=== PATIENT | female | born 1970 | race Hispanic/Latino ===

== ENCOUNTER 2021-04-12 19:10 | Inpatient (IN) | payer MEDICARE ==
--- NOTE | 2021-04-12 19:43 | Emergency Department Report ---
ED Shortness of Breath HPI - General Chief Complaint: Dyspnea/Respdistress Stated Complaint: HIGH BLOOD SUGAR, TAMMY Time Seen by Provider: 04/12/21 19:38 Source: EMS Mode of arrival: Stretcher Limitations: No Limitations - History of Present Illness Initial Comments: Patient is a 52-year-old female who presents emergency room with complaints of shortness of breath and elevated blood sugar. Patient states her shortness of breath started 4 days ago. Patient states her shortness of breath is worsening. Patient states her blood sugar fluctuates over time. Patient states she is compliant with her diabetes medications. Patient states that blood sugar is making her tired. Patient denies chest pain. Patient denies pain. Patient denies nausea vomiting. Patient denies recent travel. Patient denies recent international travel. Patient denies exposure to the novel coronavirus. Patient denies sick contacts. Patient denies fever and chills. Patient denies cough. Patient denies diarrhea. Patient denies coming in contact with anybody with symptoms of the novel coronavirus. Patient brought in by EMS, received from EMS. EMS states the oxygen is 90%. Patient's oxygen was 99% on a nonrebreather. MD Complaint: shortness of breath -: Sudden Severity: severe Consistency: constant Improves With: rest, upright position Worsens With: lying flat, exertion Known History Of: COPD Treatments Prior to Arrival: oxygen - Related Data Home Oxygen Therapy: No Allergies Allergy/AdvReac Type Severity Reaction Status Date / Time ciprofloxacin [From Cipro] Allergy Unknown Verified 04/12/21 20:24 Penicillins Allergy Unknown Verified 04/12/21 20:24 ED Review of Systems ROS: Stated complaint: HIGH BLOOD SUGAR, TAMMY Other details as noted in HPI Constitutional: malaise. denies: chills, fever Eyes: denies: eye pain, eye discharge, vision change ENT: denies: ear pain, throat pain Respiratory: shortness of breath, SOB with exertion, SOB at rest. denies: cough, wheezing Cardiovascular: denies: chest pain, palpitations Endocrine: no symptoms reported Gastrointestinal: denies: abdominal pain, nausea, diarrhea Genitourinary: denies: urgency, dysuria, discharge Musculoskeletal: denies: back pain, joint swelling, arthralgia Skin: denies: rash, lesions Neurological: denies: headache, weakness, paresthesias Psychiatric: denies: anxiety, depression Hematological/Lymphatic: denies: easy bleeding, easy bruising ED Past Medical Hx - Past Medical History Previous Medical History?: Yes Hx Hypertension: Yes Hx CVA: No Hx Heart Attack/AMI: No Hx Congestive Heart Failure: No Hx Diabetes: Yes Hx Renal Disease: No Hx COPD: Yes - Surgical History Past Surgical History?: No - Family History Family history: no significant - Social History Smoking Status: Current Every Day Smoker Substance Use Type: None ED Physical Exam - General Limitations: No Limitations General appearance: in no apparent distress, lethargic - Head Head exam: Present: atraumatic, normocephalic - Eye Eye exam: Present: normal appearance - ENT ENT exam: Present: mucous membranes moist - Neck Neck exam: Present: normal inspection - Respiratory Respiratory exam: Present: normal lung sounds bilaterally. Absent: respiratory distress, wheezes, rales, chest wall tenderness - Cardiovascular Cardiovascular Exam: Present: regular rate, normal rhythm. Absent: systolic murmur, diastolic murmur, rubs, gallop - GI/Abdominal GI/Abdominal exam: Present: soft, normal bowel sounds - Extremities Exam Extremities exam: Present: normal inspection - Back Exam Back exam: Present: normal inspection - Neurological Exam Neurological exam: Present: oriented X3 - Psychiatric Psychiatric exam: Present: normal affect, normal mood - Skin Skin exam: Present: warm, dry, intact, normal color. Absent: rash ED Course Vital Signs 04/12/21 04/12/21 04/12/21 19:41 19:42 19:45 Temperature 99.7 F H Pulse Rate Respiratory Rate Blood Pressure 123/48 Blood Pressure 123/48 [Left] O2 Sat by Pulse 87 94 97 Oximetry 04/12/21 04/12/21 04/12/21 20:29 20:33 21:19 Temperature Pulse Rate 56 L Respiratory Rate Blood Pressure 138/111 138/111 Blood Pressure [Left] O2 Sat by Pulse Oximetry 04/12/21 04/12/21 04/12/21 21:31 21:45 22:01 Temperature Pulse Rate 100 H 93 H Respiratory 30 H 38 H Rate Blood Pressure 123/48 101/56 Blood Pressure [Left] O2 Sat by Pulse 95 96 96 Oximetry 04/12/21 04/12/21 22:15 22:31 Temperature Pulse Rate 68 Respiratory 21 Rate Blood Pressure 101/56 118/57 Blood Pressure [Left] O2 Sat by Pulse 98 95 Oximetry - Reevaluation(s) Reevaluation #1: Patient placed on a DKA protocol to include insulin, fluids. Patient agrees with plan of care. Patient is less lethargic. 04/12/21 21:19 Reevaluation #2: I discussed all results with patient. I discussed plan of care with patient. Patient agrees with plan of care and admission. Patient to be admitted to the hospitalist service. 04/12/21 21:37 - Consultations Consultation #1: Hospitalist consulted for admission. Hospitalist to admit patient. 04/12/21 21:37 ED Medical Decision Making - Lab Data Result diagrams: 04/12/21 20:25 04/12/21 23:18 - EKG Data -: EKG Interpreted by Me EKG shows normal: sinus rhythm, ST-T waves Rate: normal - EKG Data Interpretation: LVH, other (Bigeminy, PVCs, axis deviation) - Radiology Data Radiology results: report reviewed, image reviewed interpreted by me: Chest x-ray: No pneumonia, no pneumothorax, no foreign body, no osseous findings, no acute findings CHEST 1 VIEW INDICATION: Dyspnea. COMPARISON: None FINDINGS: SUPPORT DEVICES: None. HEART: Within normal limits. LUNGS/PLEURA: Suboptimal inspiratory effort with central vascular crowding but otherwise clear lungs. ADDITIONAL FINDINGS: None. IMPRESSION: 1. No acute findings. - Medical Decision Making Patient is a 51-year-old female who presents emergency room with elevated blood sugar and shortness of breath. Patient will be hypoxic. Patient's oxygenation improved with fluids and oxygen. Patient required oxygen entire time in ER. Patient chest x-ray is negative for acute findings. Patient had labs done. Patient's labs shows metabolic acidosis and DKA and dehydration and renal i nsufficiency, lactic acidosis. Patient given fluids in the ER and prior to arrival by EMS. Patient placed on a DKA protocol to include fluids and a insulin drip. Patient admitted to the hospitalist service for further evaluation treatment into the ICU. Critical care time documented due to the multiple reassessments, prolonged time at the bedside, interpretation of diagnostics and labs. - Differential Diagnosis DKA, shortness of breath, hypoxia, pneumonia, hyperglycemia, encephalopathy Critical Care Time: Yes Critical care time in (mins) excluding proc time.: 35 Critical care attestation.: If time is entered above; I have spent that time in minutes in the direct care of this critically ill patient, excluding procedure time. Critical Care Time: 35 minutes ED Disposition Clinical Impression: Lethargy, Acute metabolic encephalopathy, SOB (shortness of breath), Renal insufficiency DKA (diabetic ketoacidoses) Qualifiers: Diabetes mellitus type: type 2 Diabetes mellitus complication detail: with coma Qualified Code(s): E11.11 - Type 2 diabetes mellitus with ketoacidosis with coma Respiratory failure Qualifiers: Chronicity: acute Respiratory failure complication: hypoxia Qualified Code(s): J96.01 - Acute respiratory failure with hypoxia Disposition: 09 OP ADMIT IP TO THIS HOSP Is pt being admited?: Yes Does the pt Need Aspirin: No Condition: Critical Time of Disposition: 21:36
[2021-04-12 20:33] LABS: Basophils # (Auto) 0.1 K/mm3 (0.0-0.1); Eosinophils % (Auto) 0.2 % (0.0-4.3); Monocytes # (Auto) 0.5 K/mm3 (0.0-0.8); Monocytes % (Auto) 3.8 % (0.0-7.3)
[2021-04-12 20:44] LABS: INR 1.09 (0.87-1.13); Partial Thromboplastin Time 26.8 Sec. (24.2-36.6)
[2021-04-12 20:57] LABS: Creatine Kinase MB 2.5 ng/mL (0.0-4.0)
[2021-04-12 20:59] LABS: Albumin 3.3 g/dL (3.9-5)
[2021-04-12 21:06] LABS: Hemoglobin 17.1 gm/dl (10.1-14.3); Red Blood Count 5.58 M/mm3 (3.65-5.03)
[2021-04-12 21:07] LABS: Basophils % (Auto) 0.7 % (0.0-1.8); Hematocrit 56.4 % (30.3-42.9); Lymphocytes # (Auto) 1.2 K/mm3 (1.2-5.4); Lymphocytes % (Auto) 7.9 % (13.4-35.0); Mean Corpuscular HGB Conc 30 % (30-34); Mean Corpuscular Volume 101 fl (79-97); Platelet Count 267 K/mm3 (140-440); Red Cell Distribution Width 15.3 % (13.2-15.2)
[2021-04-12] MEDS ORDERED: SODIUM CHLORIDE 0.9% 1000 ML 1,000 ML IV ONE ×2 (21:09→21:17)
[2021-04-12] MEDS ORDERED: DEXTROSE 50% IN WATER (25GM) 50 ML SYRINGE IV PRN ×3 (21:17→23:00)
--- NOTE | 2021-04-12 21:25 | XRay Report ---
CHEST 1 VIEW INDICATION: Dyspnea. COMPARISON: None FINDINGS: SUPPORT DEVICES: None. HEART: Within normal limits. LUNGS/PLEURA: Suboptimal inspiratory effort with central vascular crowding but otherwise clear lungs. ADDITIONAL FINDINGS: None. IMPRESSION: 1. No acute findings. Signer Name: Aravind Joyce MD Signed: 04/12/2021 9:20 PM Workstation Name: [id number]
[2021-04-12 21:54] LABS: Calcium 9.7 mg/dL (8.4-10.2)
[2021-04-12] MEDS ORDERED: D5W/0.45% NACL/KCL 20 MEQ 20 MEQ/1,000 ML BAG IV SCH (22:00)
[2021-04-12] MEDS ORDERED: INSULIN REGULAR, HUMAN 100 UNITS in SODIUM CHLORIDE 0.9% 99 ML IV SCH ×2 (22:00→23:00)
[2021-04-12] MEDS ORDERED: hydrALAZINE 20 MG/1 ML INJ IV PRN (22:12)
--- NOTE | 2021-04-12 22:18 | History and Physical Report ---
History of Present Illness Date of examination: 04/12/21 Date of admission: 04/12/21 21:36 Chief complaint: Shortness of breath High blood sugar History of present illness: 52-year-old female with past medical history of COPD, hypertension and diabetes was brought to the emergency room because of shortness of breath and elevated blood sugar. Patient states her shortness of breath started 4 days ago. Patient states her shortness of breath is worsening. Patient states her blood sugar fluctuates over time. Patient states she is compliant with her diabetes medications. Patient states that blood sugar is making her tired. Patient denies chest pain. Patient denies pain. Patient denies nausea vomiting. In the emergency room patient is found to have blood glucose of 10/14/2008, bicarb 15 and anion gap 22 also lactic acid 5.40 Past History Past Medical History: COPD, diabetes, hypertension Medications and Allergies Allergies Allergy/AdvReac Type Severity Reaction Status Date / Time ciprofloxacin [From Cipro] Allergy Unknown Verified 04/12/21 20:24 Penicillins Allergy Unknown Verified 04/12/21 20:24 Active Meds: Active Medications Dextrose (Dextrose 50% In Water (25gm) 50 Ml Syringe) 50 ml IV Q30MIN PRN; Protocol PRN Reason: Hypoglycemia Dextrose (Dextrose 50% In Water (25gm) 50 Ml Syringe) 0 ml IV Q30MIN PRN; Protocol PRN Reason: Hypoglycemia Heparin Sodium (Porcine) (Heparin 5,000 Unit/1 Ml Vial) 5,000 unit SUB-Q Q8HR SHANTHI Hydralazine HCl (Hydralazine 20 Mg/1 Ml Inj) 10 mg IV Q6H PRN PRN Reason: Blood Pressure Insulin Human Regular 100 (units/ Sodium Chloride) 100 mls @ 1 mls/hr IV TITR SHANTHI; Protocol Last Admin: 04/12/21 21:49 Dose: 8 units/hr, 8 mls/hr Documented by: Sodium Chloride (Nacl 0.9% 1000 Ml) 1,000 mls @ 999 mls/hr IV BOLUS ONE Stop: 04/12/21 22:17 Last Admin: 04/12/21 21:37 Dose: 999 mls/hr Documented by: Potassium Chloride/Dextrose/Sod Cl (D5w/0.45% Nacl/Kcl 20 Meq) 20 meq in 1,000 mls @ 125 mls/hr IV DIRECT SHANTHI Insulin Human Regular 100 (units/ Sodium Chloride) 100 mls @ 1 mls/hr IV TITR SHANTHI; Protocol Review of Systems Cardiovascular: shortness of breath, dyspnea on exertion Respiratory: shortness of breath, dyspnea on exertion Exam - Constitutional Vitals: Temp Pulse Resp BP Pulse Ox 99.7 F H 123/48 94 04/12/21 19:42 04/12/21 19:42 04/12/21 19:42 General appearance: Present: no acute distress, well-nourished - EENT Eyes: Present: PERRL ENT: hearing intact, clear oral mucosa - Neck Neck: Present: supple, normal ROM - Respiratory Respiratory effort: normal Respiratory: bilateral: diminished - Cardiovascular Heart Sounds: Present: S1 & S2. Absent: rub, click - Extremities Extremities: pulses symmetrical, No edema Peripheral Pulses: within normal limits - Abdominal General gastrointestinal: Present: soft, non-tender, non-distended, normal bowel sounds Female genitourinary: Present: normal - Integumentary Integumentary: Present: clear, warm, dry - Musculoskeletal Musculoskeletal: gait normal, strength equal bilaterally - Psychiatric Psychiatric: appropriate mood/affect, intact judgment & insight - Neurologic Neurologic: CNII-XII intact, moves all extremities HEART Score - HEART Score Troponin: Troponin T 0.016 ng/mL (0.00-0.029) 04/12/21 20:25 Results - Labs CBC & Chem 7: 04/12/21 20:25 04/12/21 21:24 Labs: Laboratory Last Values WBC 13.7 K/mm3 (4.5-11.0) H 04/12/21 20:25 RBC 5.58 M/mm3 (3.65-5.03) H 04/12/21 20:25 Hgb 17.1 gm/dl (10.1-14.3) H 04/12/21 20:25 Hct 56.4 % (30.3-42.9) H* 04/12/21 20:25 MCV 101 fl (79-97) H 04/12/21 20:25 MCH 31 pg (28-32) 04/12/21 20:25 MCHC 30 % (30-34) 04/12/21 20:25 RDW 15.3 % (13.2-15.2) H 04/12/21 20:25 Plt Count 267 K/mm3 (140-440) 04/12/21 20:25 Lymph % (Auto) 7.9 % (13.4-35.0) L 04/12/21 20:25 [place] % (Auto) 3.8 % (0.0-7.3) 04/12/21 20:25 Eos % (Auto) 0.2 % (0.0-4.3) 04/12/21 20:25 Baso % (Auto) 0.7 % (0.0-1.8) 04/12/21 20:25 Lymph # (Auto) 1.2 K/mm3 (1.2-5.4) 04/12/21 20:25 [place] # (Auto) 0.5 K/mm3 (0.0-0.8) 04/12/21 20:25 Eos # (Auto) 0.0 K/mm3 (0.0-0.4) 04/12/21 20:25 Baso # (Auto) 0.1 K/mm3 (0.0-0.1) 04/12/21 20:25 Seg Neutrophils % 87.4 % (40.0-70.0) H 04/12/21 20:25 Seg Neutrophils # 12.8 K/mm3 (1.8-7.7) H 04/12/21 20:25 PT 14.7 Sec. (12.2-14.9) 04/12/21 20:25 INR 1.09 (0.87-1.13) 04/12/21 20:25 APTT 26.8 Sec. (24.2-36.6) 04/12/21 20:25 VBG pH 7.283 (7.320-7.420) L 04/12/21 20:25 Sodium 127 mmol/L (137-145) L 04/12/21 21:24 Potassium 4.6 mmol/L (3.6-5.0) 04/12/21 21:24 Chloride 93.8 mmol/L (98-107) L 04/12/21 21:24 Carbon Dioxide 17 mmol/L (22-30) L 04/12/21 21:24 Anion Gap 21 mmol/L 04/12/21 21:24 BUN 11 mg/dL (7-17) 04/12/21 21:24 Creatinine 1.2 mg/dL (0.6-1.2) 04/12/21 21:24 Estimated GFR 47 ml/min 04/12/21 21:24 BUN/Creatinine Ratio 9 % 04/12/21 21:24 Glucose 954 mg/dL (65-100) H* 04/12/21 21:24 Lactic Acid 3.80 mmol/L (0.7-2.0) H* 04/12/21 21:24 Calcium 9.7 mg/dL (8.4-10.2) 04/12/21 21:24 Phosphorus 3.20 mg/dL (2.5-4.5) 04/12/21 21:24 Magnesium 2.60 mg/dL (1.7-2.3) H 04/12/21 21:24 Total Bilirubin 0.20 mg/dL (0.1-1.2) 04/12/21 20:25 AST 11 units/L (5-40) 04/12/21 20:25 ALT 12 units/L (7-56) 04/12/21 20:25 Alkaline Phosphatase 110 units/L (35-129) 04/12/21 20:25 Total Creatine Kinase 37 units/L (30-135) 04/12/21 20:25 CK-MB (CK-2) 2.5 ng/mL (0.0-4.0) 04/12/21 20:25 CK-MB (CK-2) Rel Index 6.7 (0-4) H 04/12/21 20:25 Troponin T 0.016 ng/mL (0.00-0.029) 04/12/21 20:25 Total Protein 7.4 g/dL (6.3-8.2) 04/12/21 20:25 Albumin 3.3 g/dL (3.9-5) L 04/12/21 20:25 Albumin/Globulin Ratio 0.8 % 04/12/21 20:25 - Imaging and Cardiology Chest x-ray: report reviewed Assessment and Plan VTE prophylaxis?: Chemical Plan of care discussed with patient/family: Yes - Patient Problems (1) DKA (diabetic ketoacidoses) Current Visit: Yes Status: Acute Qualifiers: Diabetes mellitus type: type 2 Diabetes mellitus complication detail: with coma Qualified Code(s): E11.11 - Type 2 diabetes mellitus with ketoacidosis with coma Plan to address problem: Admit the patient to the medical ICU. Nothing by mouth. IV fluid as per DKA protocol. Insulin drip as per DKA protocol. Protonix 40 mg IV daily. We will do the serial BMP. Recheck CBC BMP in the morning. Diabetic education. Reconsult critical care (2) Lactic acidosis Current Visit: Yes Status: Acute Plan to address problem: IV fluid normal saline at the rate of 125 cc/h. Clindamycin 600 mg IV every 8 hours. We will recheck the lactic acid in 4 hours. We do the blood culture urine culture. Recheck CBC in the morning (3) COPD (chronic obstructive pulmonary disease) Current Visit: Yes Status: Acute Plan to address problem: Oxygen by nasal cannula 3 L/min. DuoNeb via nebulizer every 4 hours. Albuterol via nebulizer every 4 hours as needed. To continue the home medication. We will monitor the patient closely (4) Hypertension Current Visit: Yes Status: Acute Plan to address problem: Hydralazine 10 mg IV every 6 hours as needed. We will continue the home medication. We will monitor the patient closely (5) Respiratory failure Current Visit: Yes Status: Acute Qualifiers: Chronicity: acute Respiratory failure complication: hypoxia Qualified C ode(s): J96.01 - Acute respiratory failure with hypoxia Plan to address problem: Oxygen by nasal cannula 3 L/min. DuoNeb via nebulizer every 4 hours. Albuterol via nebulizer every 4 hours as needed. To continue the home medication. We will monitor the patient closely (6) SOB (shortness of breath) Current Visit: Yes Status: Acute Plan to address problem: Oxygen by nasal cannula 3 L/min. DuoNeb via nebulizer every 4 hours. Albuterol via nebulizer every 4 hours as needed. To continue the home medication. We will monitor the patient closely (7) DVT prophylaxis Current Visit: Yes Status: Acute Plan to address problem: Heparin 5000 units subcu every 8 hours for DVT prophylaxis. Protonix 40 mg IV daily for GI prophylaxis. Patient is a full code
[2021-04-12] MEDS ORDERED: ALBUTEROL 2.5 MG/3 ML NEBU IH PRN (22:22)
[2021-04-12 23:49] LABS: Calcium 8.6 mg/dL (8.4-10.2)
[2021-04-13] MEDS: CLINDAMYCIN 600 MG/50 mL 600 MG/50 ML BAG IV SCH ×2 (00:32→08:44)
[2021-04-13] MEDS: POTASSIUM CHLORIDE 10 MEQ 10 MEQ/100 ML BAG IV SCH ×4 (01:15→04:05)
[2021-04-13 02:54] LABS: BUN/Creatinine Ratio 10; Blood Urea Nitrogen 9 mg/dL (7-17); Calcium 8.9 mg/dL (8.4-10.2); Hemolysis Index 11
[2021-04-13] MEDS: HEPARIN 5,000 UNIT/1 ML VIAL SUB-Q SCH ×3 (05:06→22:24)
[2021-04-13 08:20] LABS: Hematocrit 46.8 % (30.3-42.9); Hemoglobin 15.8 gm/dl (10.1-14.3); Mean Corpuscular HGB Conc 34 % (30-34); Mean Corpuscular Volume 93 fl (79-97); Platelet Count 202 K/mm3 (140-440); Red Blood Count 5.03 M/mm3 (3.65-5.03); Red Cell Distribution Width 13.5 % (13.2-15.2)
[2021-04-13] MEDS ORDERED: DEXTROSE 50% IN WATER (25GM) 50 ML SYRINGE IV PRN (08:44)
[2021-04-13 08:54] LABS: Blood Urea Nitrogen 7 mg/dL (7-17); Calcium 9.1 mg/dL (8.4-10.2)
[2021-04-13] MEDS ORDERED: INSULIN NPH/REGULAR 70/30 INJ SUB-Q SCH ×2 (09:00→17:00)
[2021-04-13 09:07] LABS: Amphetamine Screen,Urine Negative; Benzodiazepines Screen,Urine Negative; Cannabinoid Screen,Urine Negative; Cocaine Screen,Urine Negative; Methadone Screen,Urine Negative; Opiate Screen,Urine Negative
--- NOTE | 2021-04-13 09:19 | Electrocardiograph Report ---
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
--- NOTE | 2021-04-13 09:19 | Electrocardiograph Report ---
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
[2021-04-13 09:23] LABS: BUN/Creatinine Ratio 10
[2021-04-13 09:26] LABS: Bacteria,Urine 2+ /HPF (Negative); Bilirubin,Urine NEG (Negative); Blood,Urine NEG (Negative); Color,Urine Yellow (Yellow); Urobilinogen,Urine < 2.0 mg/dL (<2.0)
--- NOTE | 2021-04-13 09:54 | Progress Note ---
<LINETTE BOSTON - Last Filed: 04/13/21 16:05> Assessment and Plan Assessment and plan: This is a 51 year old female with bipolar, DM, HTN, cellulites, COPD, abd wound s/p debridement, current tobacco abuse and noncompliance admitted with DKA, lactic acidosis and cellulitus Neuro History of bipolar -Resume home bupropion, lithium carbonate, venlafaxine -Supportive care -[place] level pending -Avoid delirium CV Hypertension -Patient reportedly takes HCTZlisinopril combo pill -Resume home lisinopril and add hydrochlorothiazide as needed -Hydralazine as needed -Blood pressure monitoring per protocol Polycythemia -Presenting H/H -Likely related to dehydration -Trend CBC Respiratory COPD -Supplemental oxygen as needed -SPO2 monitoring -No acute exacerbation noted at this time Nicotine abuse -Patient was reports smoking 1 pack/day -Refuses NicoDerm patch at this time -Smoking cessation counseling FEN/GI: Hyperchloremia -S/p MIVF -Trend BMP Metabolic acidosis -Trend BMP : NAD -Voiding into toilet Endo: DM, hyperglycemia, s/p DKA -Presented with blood glucose ~1100 -Hemoglobin A1c 11.2 -S/p insulin drip -Transition to SSI, long-acting insulin-> titrate as needed -Hold home antidiabetic regimen -Need to follow-up with PCP outpatient Hypothyroidism -Resume home Synthroid -Need to follow-up with PCP outpatient Morbid obesity -Nutrition consult -Increase in physical activity and lifestyle modifications encouraged ID: Cellulitis -P.o. doxycycline Leukocytosis -Patient has cellulitis, presented with DKA -Trend CBC COVID-19 PUI -COVID-19 PCR negative MS: NAD -Patient is able to move all extremities, ambulate without assistance GI/DVT prophylaxis: Protonix, SCDs to bilateral lower extremities while in bed, Lovenox subcu Disposition: Transfer to floor Lines: PIV The high probability of a clinically significant, sudden or life threatening deterioration of the [endo] system(s) required my full and direct attention, intervention and personal management. The aggregate critical care time was [30] minutes. This time is in addition to time spent performing reported procedures but includes the following: [x] Data Review and interpretation [x] Patient assessment and monitoring of vital signs [x] Documentation [x] Medication orders and management History Interval history: This is a 51 year old female with bipolar, DM, HTN, cellulites, COPD, abd wound s/p debridement, current tobacco abuse and noncompliance who presented to the ED on 04/12 with complaints of SOB over the past 4 days and elevated blood glucose. Workup in the ED revealed a blood glucose of 1109, Bicarb of 15, AG of 22 consistent with DKA, lactic acid of 5.4 and physical exam revealed cellulitis. Patient was admitted to the hospitalist service with consults to [facility] on DKA protocol and started on antibiotics. 04/13: Patient's anion gap noted to be closed, transition to SSI and CC diet. Patient has been tolerating CC diet and will be transferred to the floor. On interview patient reviewed that she recently started doxycycline on Saturday or Saturday which has been restarted during hospital stay. Hemoglobin A1c elevated at 11.2. Hospitalist Physical - Constitutional Vitals: Temp Pulse Resp BP Pulse Ox 98.5 F 63 25 H 121/62 98 04/13/21 03:35 04/13/21 08:00 04/13/21 08:00 04/13/21 08:00 04/13/21 08:00 General appearance: Present: no acute distress, well-nourished, obese - EENT Eyes: Present: PERRL, EOM intact ENT: hearing intact, poor dentition - Neck Neck: Present: normal ROM - Respiratory Respiratory effort: normal Respiratory: bilateral: diminished - Cardiovascular Rhythm: regular Heart Sounds: Present: S1 & S2. Absent: systolic murmur, diastolic murmur - Extremities Extremities: no ischemia, pulses intact, pulses symmetrical, No edema, normal temperature, normal color, Full ROM Peripheral Pulses: within normal limits - Abdominal General gastrointestinal: soft, non-tender, non-distended, normal bowel sounds - Integumentary Integumentary: Present: warm, dry - Psychiatric Psychiatric: appropriate mood/affect, cooperative - Neurologic Neurologic: CNII-XII intact, no focal deficits, moves all extremities - Allied Health Allied health notes reviewed: nursing, social work HEART Score - HEART Score Troponin: Troponin T 0.016 ng/mL (0.00-0.029) 04/12/21 20:25 Results - Labs CBC & Chem 7: 04/13/21 08:10 04/13/21 07:39 Labs: Laboratory Last Values WBC 12.4 K/mm3 (4.5-11.0) H 04/13/21 08:10 RBC 5.03 M/mm3 (3.65-5.03) 04/13/21 08:10 Hgb 15.8 gm/dl (10.1-14.3) H 04/13/21 08:10 Hct 46.8 % (30.3-42.9) H D 04/13/21 08:10 MCV 93 fl (79-97) 04/13/21 08:10 MCH 31 pg (28-32) 04/13/21 08:10 MCHC 34 % (30-34) 04/13/21 08:10 RDW 13.5 % (13.2-15.2) 04/13/21 08:10 Plt Count 202 K/mm3 (140-440) 04/13/21 08:10 Lymph % (Auto) 7.9 % (13.4-35.0) L 04/12/21 20:25 [place] % (Auto) 3.8 % (0.0-7.3) 04/12/21 20:25 Eos % (Auto) 0.2 % (0.0-4.3) 04/12/21 20:25 Baso % (Auto) 0.7 % (0.0-1.8) 04/12/21 20:25 Lymph # (Auto) 1.2 K/mm3 (1.2-5.4) 04/12/21 20:25 Norman # (Auto) 0.5 K/mm3 (0.0-0.8) 04/12/21 20:25 Eos # (Auto) 0.0 K/mm3 (0.0-0.4) 04/12/21 20:25 Baso # (Auto) 0.1 K/mm3 (0.0-0.1) 04/12/21 20:25 Seg Neutrophils % 87.4 % (40.0-70.0) H 04/12/21 20:25 Seg Neutrophils # 12.8 K/mm3 (1.8-7.7) H 04/12/21 20:25 PT 14.7 Sec. (12.2-14.9) 04/12/21 20:25 INR 1.09 (0.87-1.13) 04/12/21 20:25 APTT 26.8 Sec. (24.2-36.6) 04/12/21 20:25 VBG pH 7.283 (7.320-7.420) L 04/12/21 20:25 Sodium 141 mmol/L (137-145) 04/13/21 07:39 Potassium 4.7 mmol/L (3.6-5.0) D 04/13/21 07:39 Chloride 107.9 mmol/L (98-107) H 04/13/21 07:39 Carbon Dioxide 21 mmol/L (22-30) L 04/13/21 07:39 Anion Gap 17 mmol/L 04/13/21 07:39 BUN 7 mg/dL (7-17) 04/13/21 07:39 Creatinine 0.7 mg/dL (0.6-1.2) 04/13/21 07:39 Estimated GFR > 60 ml/min 04/13/21 07:39 BUN/Creatinine Ratio 10 % 04/13/21 07:39 Glucose 164 mg/dL (65-100) H 04/13/21 07:39 POC Glucose 162 mg/dL (70-105) H 04/13/21 07:59 Hemoglobin A1c 11.2 % (4-6) H 04/13/21 08:10 Lactic Acid 1.90 mmol/L (0.7-2.0) 04/13/21 07:39 Calcium 9.1 mg/dL (8.4-10.2) 04/13/21 07:39 Phosphorus 2.90 mg/dL (2.5-4.5) 04/12/21 23:18 Magnesium 2.10 mg/dL (1.7-2.3) 04/12/21 23:18 Total Bilirubin 0.20 mg/dL (0.1-1.2) 04/12/21 20:25 AST 11 units/L (5-40) 04/12/21 20:25 ALT 12 units/L (7-56) 04/12/21 20:25 Alkaline Phosphatase 110 units/L (35-129) 04/12/21 20:25 Total Creatine Kinase 37 units/L (30-135) 04/12/21 20:25 CK-MB (CK-2) 2.5 ng/mL (0.0-4.0) 04/12/21 20:25 CK-MB (CK-2) Rel Index 6.7 (0-4) H 04/12/21 20:25 Troponin T 0.016 ng/mL (0.00-0.029) 04/12/21 20:25 Total Protein 7.4 g/dL (6.3-8.2) 04/12/21 20:25 Albumin 3.3 g/dL (3.9-5) L 04/12/21 20:25 Albumin/Globulin Ratio 0.8 % 04/12/21 20:25 Urine Color Yellow (Yellow) 04/13/21 08:40 Urine Turbidity Clear (Clear) 04/13/21 08:40 Urine pH 7.0 (5.0-7.0) 04/13/21 08:40 Ur Specific [place] 1.026 (1.003-1.030) 04/13/21 08:40 Urine Protein 30 mg/dl mg/dL (Negative) 04/13/21 08:40 Urine Glucose (UA) >=500 mg/dL (Negative) 04/13/21 08:40 Urine Ketones Neg mg/dL (Negative) 04/13/21 08:40 Urine Blood Neg (Negative) 04/13/21 08:40 Urine Nitrite Neg (Negative) 04/13/21 08:40 Urine Bilirubin Neg (Negative) 04/13/21 08:40 Urine Urobilinogen < 2.0 mg/dL (<2.0) 04/13/21 08:40 Ur Leukocyte Esterase Neg (Negative) 04/13/21 08:40 Urine WBC (Auto) 5.0 /HPF (0.0-6.0) 04/13/21 08:40 Urine RBC (Auto) 3.0 /HPF (0.0-6.0) 04/13/21 08:40 U Epithel Cells (Auto) 5.0 /HPF (0-13.0) 04/13/21 08:40 Urine Bacteria (Auto) 2+ /HPF (Negative) 04/13/21 08:40 Urine Yeast (Budding) 2+ /HPF 04/13/21 08:40 Urine Opiates Screen Negative 04/13/21 08:40 Urine Methadone Screen Negative 04/13/21 08:40 Ur Barbiturates Screen Negative 04/13/21 08:40 Ur Phencyclidine Scrn Negative 04/13/21 08:40 Ur Amphetamines Screen Negative 04/13/21 08:40 U Benzodiazepines Scrn Negative 04/13/21 08:40 Urine Cocaine Screen Negative 04/13/21 08:40 U Marijuana (THC) Screen Negative 04/13/21 08:40 Drugs of Abuse Note Disclamer 04/13/21 08:40 Tian/IV: Voiding Method External Female Catheter Active Medications - Current Medications Current Medications: Generic Name Dose Route Start Last Admin Trade Name Freq PRN Reason Stop Dose Admin Albuterol 2.5 mg 04/12/21 22:22 Albuterol 2.5 Mg/3 Ml Nebu IH Q4HRT PRN Shortness Of Breath Dextrose 50 ml 04/13/21 08:44 Dextrose 50% In Water (25gm) 50 Ml Syringe IV Q30MIN PRN Hypoglycemia Protocol Heparin Sodium (Porcine) 5,000 unit 04/13/21 06:00 04/13/21 05:06 Heparin 5,000 Unit/1 Ml Vial SUB-Q 5,000 unit Q8HR SHANTHI Administration Hydralazine HCl 10 mg 04/12/21 22:12 Hydralazine 20 Mg/1 Ml Inj IV Q6H PRN Blood Pressure Potassium Chloride/Dextrose/Sod Cl 20 meq in 1,000 mls @ 125 mls/hr 04/12/21 22:00 04/13/21 02:07 D5w/0.45% Nacl/Kcl 20 Meq IV 125 mls/hr DIRECT SHANTHI Administration Clindamycin HCl 600 mg in 50 mls @ 100 mls/hr 04/13/21 00:00 04/13/21 08:44 Cleocin 600 Mg/50 Ml IV 04/19/21 16:29 100 mls/hr Q8H SHANTHI Administration Protocol Insulin Human Isoph/Insulin Regular 15 unit 04/13/21 09:00 04/13/21 09:45 Insulin Nph/Regular 70/30 Inj SUB-Q 15 unit QDDIAB SHANTHI Administration Insulin Human Isoph/Insulin Regular 5 unit 04/13/21 17:00 Insulin Nph/Regular 70/30 Inj SUB-Q QPMDIAB SHANTHI Insulin Human Lispro 0 unit 04/13/21 11:30 Insulin Lispro 100 Unit/Ml SUB-Q ACHS SHANTHI Protocol Pantoprazole Sodium 40 mg 04/13/21 10:00 04/13/21 09:45 Pantoprazole 40 Mg Inj IV 40 mg DAILY SHANTHI Administration <HEMA GOMEZ - Last Filed: 04/13/21 16:24> Assessment and Plan Assessment and plan: Agree with assessment and plan as outlined by nurse practitioner, I have personally examined the patient, patient's blood glucose is improved but continues to need improvement. Patient is on high levels of insulin, will need to monitor closely. Patient has multiple wounds on her abdomen and legs, wound care has been consulted. Patient to be transferred to the floor. Hospitalist Physical - Constitutional Vitals: Temp Pulse Resp BP Pulse Ox 98.5 F 80 18 136/50 100 04/13/21 12:00 04/13/21 11:01 04/13/21 11:01 04/13/21 15:01 04/13/21 15:01 HEART Score - HEART Score Troponin: Troponin T 0.016 ng/mL (0.00-0.029) 04/12/21 20:25 Results - Labs CBC & Chem 7: 04/13/21 08:10 04/13/21 07:39 Labs: Laboratory Last Values WBC 12.4 K/mm3 (4.5-11.0) H 04/13/21 08:10 RBC 5.03 M/mm3 (3.65-5.03) 04/13/21 08:10 Hgb 15.8 gm/dl (10.1-14.3) H 04/13/21 08:10 Hct 46.8 % (30.3-42.9) H D 04/13/21 08:10 MCV 93 fl (79-97) 04/13/21 08:10 MCH 31 pg (28-32) 04/13/21 08:10 MCHC 34 % (30-34) 04/13/21 08:10 RDW 13.5 % (13.2-15.2) 04/13/21 08:10 Plt Count 202 K/mm3 (140-440) 04/13/21 08:10 Lymph % (Auto) 7.9 % (13.4-35.0) L 04/12/21 20:25 [place] % (Auto) 3.8 % (0.0-7.3) 04/12/21 20:25 Eos % (Auto) 0.2 % (0.0-4.3) 04/12/21 20:25 Baso % (Auto) 0.7 % (0.0-1.8) 04/12/21 20:25 Lymph # (Auto) 1.2 K/mm3 (1.2-5.4) 04/12/21 20:25 [place] # (Auto) 0.5 K/mm3 (0.0-0.8) 04/12/21 20:25 Eos # (Auto) 0.0 K/mm3 (0.0-0.4) 04/12/21 20:25 Baso # (Auto) 0.1 K/mm3 (0.0-0.1) 04/12/21 20:25 Seg Neutrophils % 87.4 % (40.0-70.0) H 04/12/21 20:25 Seg Neutrophils # 12.8 K/mm3 (1.8-7.7) H 04/12/21 20:25 PT 14.7 Sec. (12.2-14.9) 04/12/21 20:25 INR 1.09 (0.87-1.13) 04/12/21 20:25 APTT 26.8 Sec. (24.2-36.6) 04/12/21 20:25 VBG pH 7.283 (7.320-7.420) L 04/12/21 20:25 Sodium 141 mmol/L (137-145) 04/13/21 07:39 Potassium 4.7 mmol/L (3.6-5.0) D 04/13/21 07:39 Chloride 107.9 mmol/L (98-107) H 04/13/21 07:39 Carbon Dioxide 21 mmol/L (22-30) L 04/13/21 07:39 Anion Gap 17 mmol/L 04/13/21 07:39 BUN 7 mg/dL (7-17) 04/13/21 07:39 Creatinine 0.7 mg/dL (0.6-1.2) 04/13/21 07:39 Estimated GFR > 60 ml/min 04/13/21 07:39 BUN/Creatinine Ratio 10 % 04/13/21 07:39 Glucose 164 mg/dL (65-100) H 04/13/21 07:39 POC Glucose 296 mg/dL (70-105) H 04/13/21 12:17 Hemoglobin A1c 11.2 % (4-6) H 04/13/21 08:10 Lactic Acid 1.90 mmol/L (0.7-2.0) 04/13/21 07:39 Calcium 9.1 mg/dL (8.4-10.2) 04/13/21 07:39 Phosphorus 2.90 mg/dL (2.5-4.5) 04/12/21 23:18 Magnesium 2.10 mg/dL (1.7-2.3) 04/12/21 23:18 Total Bilirubin 0.20 mg/dL (0.1-1.2) 04/12/21 20:25 AST 11 units/L (5-40) 04/12/21 20:25 ALT 12 units/L (7-56) 04/12/21 20:25 Alkaline Phosphatase 110 units/L (35-129) 04/12/21 20:25 Total Creatine Kinase 37 units/L (30-135) 04/12/21 20:25 CK-MB (CK-2) 2.5 ng/mL (0.0-4.0) 04/12/21 20:25 CK-MB (CK-2) Rel Index 6.7 (0-4) H 04/12/21 20:25 Troponin T 0.016 ng/mL (0.00-0.029) 04/12/21 20:25 Total Protein 7.4 g/dL (6.3-8.2) 04/12/21 20:25 Albumin 3.3 g/dL (3.9-5) L 04/12/21 20:25 Albumin/Globulin Ratio 0.8 % 04/12/21 20:25 Urine Color Yellow (Yellow) 04/13/21 08:40 Urine Turbidity Clear (Clear) 04/13/21 08:40 Urine pH 7.0 (5.0-7.0) 04/13/21 08:40 Ur Specific [place] 1.026 (1.003-1.030) 04/13/21 08:40 Urine Protein 30 mg/dl mg/dL (Negative) 04/13/21 08:40 Urine Glucose (UA) >=500 mg/dL (Negative) 04/13/21 08:40 Urine Ketones Neg mg/dL (Negative) 04/13/21 08:40 Urine Blood Neg (Negative) 04/13/21 08:40 Urine Nitrite Neg (Negative) 04/13/21 08:40 Urine Bilirubin Neg (Negative) 04/13/21 08:40 Urine Urobilinogen < 2.0 mg/dL (<2.0) 04/13/21 08:40 Ur Leukocyte Esterase Neg (Negative) 04/13/21 08:40 Urine WBC (Auto) 5.0 /HPF (0.0-6.0) 04/13/21 08:40 Urine RBC (Auto) 3.0 /HPF (0.0-6.0) 04/13/21 08:40 U Epithel Cells (Auto) 5.0 /HPF (0-13.0) 04/13/21 08:40 Urine Bacteria (Auto) 2+ /HPF (Negative) 04/13/21 08:40 Urine Yeast (Budding) 2+ /HPF 04/13/21 08:40 Urine Opiates Screen Negative 04/13/21 08:40 Urine Methadone Screen Negative 04/13/21 08:40 Ur Barbiturates Screen Negative 04/13/21 08:40 Ur Phencyclidine Scrn Negative 04/13/21 08:40 Ur Amphetamines Screen Negative 04/13/21 08:40 U Benzodiazepines Scrn Negative 04/13/21 08:40 Urine Cocaine Screen Negative 04/13/21 08:40 U Marijuana (THC) Screen Negative 04/13/21 08:40 Drugs of Abuse Note Disclamer 04/13/21 08:40 Coronavirus (PCR) Negative (Negative) 04/13/21 Unknown Tian/IV: Voiding Method External Female Catheter Active Medications - Current Medications Current Medications: Generic Name Dose Route Start Last Admin Trade Name Freq PRN Reason Stop Dose Admin Albuterol 2.5 mg 04/12/21 22:22 Albuterol 2.5 Mg/3 Ml Nebu IH Q4HRT PRN Shortness Of Breath Bupropion HCl 100 mg 04/13/21 22:00 Bupropion 100 Mg Tab PO BID SHANTHI Dextrose 50 ml 04/13/21 08:44 Dextrose 50% In Water (25gm) 50 Ml Syringe IV Q30MIN PRN Hypoglycemia Protocol Doxycycline Hyclate 100 mg 04/13/21 12:00 Doxycycline 100 Mg Cap PO 04/19/21 22:01 BID SHANTHI Protocol Heparin Sodium (Porcine) 5,000 unit 04/13/21 06:00 04/13/21 05:06 Heparin 5,000 Unit/1 Ml Vial SUB-Q 5,000 unit Q8HR SHANTHI Administration Hydralazine HCl 10 mg 04/12/21 22:12 Hydralazine 20 Mg/1 Ml Inj IV Q6H PRN Blood Pressure Insulin Human Isoph/Insulin Regular 15 unit 04/13/21 09:00 04/13/21 09:45 Insulin Nph/Regular 70/30 Inj SUB-Q 15 unit QDDIAB SHANTHI Administration Insulin Human Isoph/Insulin Regular 5 unit 04/13/21 17:00 Insulin Nph/Regular 70/30 Inj SUB-Q QPMDIAB SHANTHI Insulin Human Lispro 0 unit 04/13/21 11:30 Insulin Lispro 100 Unit/Ml SUB-Q ACHS [facility] Protocol Levothyroxine Sodium 112 mcg 04/14/21 06:00 Levothyroxine 112 Mcg Tab PO DAILY@0600 SHANTHI [place] Carbonate 300 mg 04/13/21 22:00 [place] Carbonate 300 Mg Cap PO Q12HR SHANTHI Pantoprazole Sodium 40 mg 04/14/21 07:30 Pantoprazole 40 Mg Tab PO QDAC SHANTHI Venlafaxine HCl 75 mg 04/13/21 22:00 Venlafaxine 75 Mg Tab PO BID SHANTHI Nutrition/Malnutrition Assess - Dietary Evaluation Nutrition/Malnutrition Findings: Nutrition Notes Start: 04/13/21 11:13 Freq: Status: Active Protocol: Document 04/13/21 11:13 (Rec: 04/13/21 11:15 LISA [id number]) Nutrition Notes Need for Assessment generated from: 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 RN screen for skin risk. Pt with abd ulcer and cellulitis on LE per chart. Unable to speak with pt. Nutrition Intervention Follow-Up By: 04/14/21 Additional Comments FU for assessment and diet education
[2021-04-13] MEDS ORDERED: PANTOPRAZOLE 40 MG INJ IV SCH (10:00)
[2021-04-13] MEDS: INSULIN LISPRO 100 UNIT/ML SUB-Q SCH ×3 (11:55→22:25)
--- NOTE | 2021-04-13 11:59 | Consultation ---
History of Present Illness - Reason for Consult Consult date: 04/13/21 DKA Requesting physician: KAMILA EDWARD - History of Present Illness 51 y/o female with known diabetes and history of noncompliance admitted with DKA. Could be secondary to cellulitis. Obese and noncompliant not only with therapy but with diet. Anion Gap is now closed. Past History Past Medical History: COPD, diabetes, hypertension Medications and Allergies Allergies Allergy/AdvReac Type Severity Reaction Status Date / Time ciprofloxacin [From Cipro] Allergy Unknown Verified 04/12/21 20:24 Penicillins Allergy Unknown Verified 04/12/21 20:24 Home Medications Medication Instructions Recorded Confirmed Last Taken Type Unobtainable 04/13/21 04/13/21 Unknown History Active Meds: Active Medications Albuterol (Albuterol 2.5 Mg/3 Ml Nebu) 2.5 mg IH Q4HRT PRN PRN Reason: Shortness Of Breath Dextrose (Dextrose 50% In Water (25gm) 50 Ml Syringe) 50 ml IV Q30MIN PRN; Protocol PRN Reason: Hypoglycemia Doxycycline Hyclate (Doxycycline 100 Mg Cap) 100 mg PO BID SHANTHI; Protocol Stop: 04/19/21 22:01 Heparin Sodium (Porcine) (Heparin 5,000 Unit/1 Ml Vial) 5,000 unit SUB-Q Q8HR SHANTHI Last Admin: 04/13/21 05:06 Dose: 5,000 unit Documented by: Hydralazine HCl (Hydralazine 20 Mg/1 Ml Inj) 10 mg IV Q6H PRN PRN Reason: Blood Pressure Insulin Human Isoph/Insulin Regular (Insulin Nph/Regular 70/30 Inj) 15 unit SUB-Q QDDIAB [facility] Last Admin: 04/13/21 09:45 Dose: 15 unit Documented by: Insulin Human Isoph/Insulin Regular (Insulin Nph/Regular 70/30 Inj) 5 unit SUB- Q QPMDIAB [facility] Insulin Human Lispro (Insulin Lispro 100 Unit/Ml) 0 unit SUB-Q ACHS [facility]; Protocol Pantoprazole Sodium (Pantoprazole 40 Mg Tab) 40 mg PO QDAC SHANTHI Review of Systems All systems: negative Exam - Constitutional Vitals: Temp Pulse Resp BP Pulse Ox 98.2 F 60 16 111/37 99 04/13/21 08:00 04/13/21 10:01 04/13/21 10:01 04/13/21 10:01 04/13/21 10:01 General appearance: Present: no acute distress, obese, disheveled - EENT Eyes: Present: PERRL, EOM intact ENT: hearing intact - Neck Neck: Present: supple, normal ROM - Respiratory Respiratory effort: normal Respiratory: bilateral: CTA - Cardiovascular Rhythm: regular Heart Sounds: Present: S1 & S2 - Extremities Extremities: abnormal Extremity abnormal: erythema - Abdominal General gastrointestinal: Present: soft, non-tender - Rectal Rectal Exam: deferred - Integumentary Integumentary: Present: erythema Results - Labs CBC & Chem 7: 04/13/21 08:10 04/13/21 07:39 Labs: Abnormal lab results 04/12/21 04/12/21 04/12/21 Range/Units 20:25 20:25 20:25 WBC 13.7 H (4.5-11.0) K/mm3 RBC 5.58 H (3.65-5.03) M/mm3 Hgb 17.1 H (10.1-14.3) gm/dl Hct 56.4 H* (30.3-42.9) % MCV 101 H (79-97) fl RDW 15.3 H (13.2-15.2) % Lymph % (Auto) 7.9 L (13.4-35.0) % Seg Neutrophils % 87.4 H (40.0-70.0) % Seg Neutrophils # 12.8 H (1.8-7.7) K/mm3 VBG pH (7.320-7.420) Sodium 128 L (137-145) mmol/L Potassium (3.6-5.0) mmol/L Chloride 95.4 L (98-107) mmol/L Carbon Dioxide 15 L (22-30) mmol/L Creatinine 1.3 H (0.6-1.2) mg/dL Glucose 1109 H* (65-100) mg/dL POC Glucose (70-105) mg/dL Hemoglobin A1c (4-6) % Lactic Acid 5.40 H* (0.7-2.0) mmol/L Magnesium (1.7-2.3) mg/dL CK-MB (CK-2) Rel Index 6.7 H (0-4) Albumin 3.3 L (3.9-5) g/dL 04/12/21 04/12/21 04/12/21 Range/Units 20:25 21:24 21:24 WBC (4.5-11.0) K/mm3 RBC (3.65-5.03) M/mm3 Hgb (10.1-14.3) gm/dl Hct (30.3-42.9) % MCV (79-97) fl RDW (13.2-15.2) % Lymph % (Auto) (13.4-35.0) % Seg Neutrophils % (40.0-70.0) % Seg Neutrophils # (1.8-7.7) K/mm3 VBG pH 7.283 L (7.320-7.420) Sodium 127 L (137-145) mmol/L Potassium (3.6-5.0) mmol/L Chloride 93.8 L (98-107) mmol/L Carbon Dioxide 17 L (22-30) mmol/L Creatinine (0.6-1.2) mg/dL Glucose 954 H* (65-100) mg/dL POC Glucose (70-105) mg/dL Hemoglobin A1c (4-6) % Lactic Acid 3.80 H* (0.7-2.0) mmol/L Magnesium 2.60 H (1.7-2.3) mg/dL CK-MB (CK-2) Rel Index (0-4) Albumin (3.9-5) g/dL 04/12/21 04/12/21 04/13/21 Range/Units 23:18 23:18 00:03 WBC (4.5-11.0) K/mm3 RBC (3.65-5.03) M/mm3 Hgb (10.1-14.3) gm/dl Hct (30.3-42.9) % MCV (79-97) fl RDW (13.2-15.2) % Lymph % (Auto) (13.4-35.0) % Seg Neutrophils % (40.0-70.0) % Seg Neutrophils # (1.8-7.7) K/mm3 VBG pH (7.320-7.420) Sodium (137-145) mmol/L Potassium 3.3 L D (3.6-5.0) mmol/L Chloride (98-107) mmol/L Carbon Dioxide 20 L (22-30) mmol/L Creatinine (0.6-1.2) mg/dL Glucose 631 H* (65-100) mg/dL POC Glucose 422 H (70-105) mg/dL Hemoglobin A1c (4-6) % Lactic Acid 3.20 H* (0.7-2.0) mmol/L Magnesium (1.7-2.3) mg/dL CK-MB (CK-2) Rel Index (0-4) Albumin (3.9-5) g/dL 04/13/21 04/13/21 04/13/21 Range/Units 01:01 01:57 02:23 WBC (4.5-11.0) K/mm3 RBC (3.65-5.03) M/mm3 Hgb (10.1-14.3) gm/dl Hct (30.3-42.9) % MCV (79-97) fl RDW (13.2-15.2) % Lymph % (Auto) (13.4-35.0) % Seg Neutrophils % (40.0-70.0) % Seg Neutrophils # (1.8-7.7) K/mm3 VBG pH (7.320-7.420) Sodium (137-145) mmol/L Potassium 3.4 L (3.6-5.0) mmol/L Chloride 108.1 H (98-107) mmol/L Carbon Dioxide (22-30) mmol/L Creatinine (0.6-1.2) mg/dL Glucose 231 H (65-100) mg/dL POC Glucose 326 H 245 H (70-105) mg/dL Hemoglobin A1c (4-6) % Lactic Acid (0.7-2.0) mmol/L Magnesium (1.7-2.3) mg/dL CK-MB (CK-2) Rel Index (0-4) Albumin (3.9-5) g/dL 04/13/21 04/13/21 04/13/21 Range/Units 02:23 02:59 04:00 WBC (4.5-11.0) K/mm3 RBC (3.65-5.03) M/mm3 Hgb (10.1-14.3) gm/dl Hct (30.3-42.9) % MCV (79-97) fl RDW (13.2-15.2) % Lymph % (Auto) (13.4-35.0) % Seg Neutrophils % (40.0-70.0) % Seg Neutrophils # (1.8-7.7) K/mm3 VBG pH (7.320-7.420) Sodium (137-145) mmol/L Potassium (3.6-5.0) mmol/L Chloride (98-107) mmol/L Carbon Dioxide (22-30) mmol/L Creatinine (0.6-1.2) mg/dL Glucose (65-100) mg/dL POC Glucose 156 H 157 H (70-105) mg/dL Hemoglobin A1c (4-6) % Lactic Acid 2.10 H* (0.7-2.0) mmol/L Magnesium (1.7-2.3) mg/dL CK-MB (CK-2) Rel Index (0-4) Albumin (3.9-5) g/dL 04/13/21 04/13/21 04/13/21 Range/Units 04:57 06:06 06:58 WBC (4.5-11.0) K/mm3 RBC (3.65-5.03) M/mm3 Hgb (10.1-14.3) gm/dl Hct (30.3-42.9) % MCV (79-97) fl RDW (13.2-15.2) % Lymph % (Auto) (13.4-35.0) % Seg Neutrophils % (40.0-70.0) % Seg Neutrophils # (1.8-7.7) K/mm3 VBG pH (7.320-7.420) Sodium (137-145) mmol/L Potassium (3.6-5.0) mmol/L Chloride (98-107) mmol/L Carbon Dioxide (22-30) mmol/L Creatinine (0.6-1.2) mg/dL Glucose (65-100) mg/dL POC Glucose 129 H 142 H 140 H (70-105) mg/dL Hemoglobin A1c (4-6) % Lactic Acid (0.7-2.0) mmol/L Magnesium (1.7-2.3) mg/dL CK-MB (CK-2) Rel Index (0-4) Albumin (3.9-5) g/dL 07/01/21 07/01/21 07/01/21 Range/Units 07:39 07:59 08:10 WBC (4.5-11.0) K/mm3 RBC (3.65-5.03) M/mm3 Hgb (10.1-14.3) gm/dl Hct (30.3-42.9) % MCV (79-97) fl RDW (13.2-15.2) % Lymph % (Auto) (13.4-35.0) % Seg Neutrophils % (40.0-70.0) % Seg Neutrophils # (1.8-7.7) K/mm3 VBG pH (7.320-7.420) Sodium (137-145) mmol/L Potassium (3.6-5.0) mmol/L Chloride 107.9 H (98-107) mmol/L Carbon Dioxide 21 L (22-30) mmol/L Creatinine (0.6-1.2) mg/dL Glucose 164 H (65-100) mg/dL POC Glucose 162 H (70-105) mg/dL Hemoglobin A1c 11.2 H (4-6) % Lactic Acid (0.7-2.0) mmol/L Magnesium (1.7-2.3) mg/dL CK-MB (CK-2) Rel Index (0-4) Albumin (3.9-5) g/dL 04/13/21 04/13/21 Range/Units 08:10 10:04 WBC 12.4 H (4.5-11.0) K/mm3 RBC (3.65-5.03) M/mm3 Hgb 15.8 H (10.1-14.3) gm/dl Hct 46.8 H D (30.3-42.9) % MCV (79-97) fl RDW (13.2-15.2) % Lymph % (Auto) (13.4-35.0) % Seg Neutrophils % (40.0-70.0) % Seg Neutrophils # (1.8-7.7) K/mm3 VBG pH (7.320-7.420) Sodium (137-145) mmol/L Potassium (3.6-5.0) mmol/L Chloride (98-107) mmol/L Carbon Dioxide (22-30) mmol/L Creatinine (0.6-1.2) mg/dL Glucose (65-100) mg/dL POC Glucose 244 H (70-105) mg/dL Hemoglobin A1c (4-6) % Lactic Acid (0.7-2.0) mmol/L Magnesium (1.7-2.3) mg/dL CK-MB (CK-2) Rel Index (0-4) Albumin (3.9-5) g/dL - Imaging and Cardiology Chest x-ray: image reviewed Assessment and Plan 51 y/o female with DKA, secondary to compliance and possibly lower ext cellu litis 1. Anion Gap closed. Will start patient on long acting insulin and feed her. 2. Patient was already on outpatient abx therapy. has allergy to penicillin but not sure what so will treat with PO doxy 3. Stable for transfer to floor. 4. Needs diabetic education.
[2021-04-13] MEDS: DOXYCYCLINE 100 MG CAP PO SCH ×2 (12:04→22:24)
[2021-04-13 16:17] LABS: Blood Urea Nitrogen 8 mg/dL (7-17); Calcium 8.9 mg/dL (8.4-10.2); Hemolysis Index 43
[2021-04-13 16:25] LABS: BUN/Creatinine Ratio 11
[2021-04-13] MEDS ORDERED: INSULIN GLARGINE 100 UNITS/ML SUB-Q SCH (22:00)
[2021-04-13] MEDS: VENLAFAXINE 75 MG TAB PO SCH (22:24)
[2021-04-13] MEDS: LITHIUM CARBONATE 300 MG CAP PO SCH (22:24)
[2021-04-13] MEDS: buPROPion 100 MG TAB PO SCH (22:24)
[2021-04-14 05:30] VITALS: BP 126/48
[2021-04-14] MEDS: HEPARIN 5,000 UNIT/1 ML VIAL SUB-Q SCH ×2 (05:43→16:16)
[2021-04-14] MEDS ORDERED: LEVOTHYROXINE 112 MCG TAB PO SCH (06:00)
[2021-04-14] MEDS ORDERED: PANTOPRAZOLE 40 MG TAB PO SCH (07:30)
[2021-04-14] MEDS: INSULIN LISPRO 100 UNIT/ML SUB-Q SCH ×7 (08:15→17:11)
[2021-04-14 09:58] LABS: Hematocrit 49.2 % (30.3-42.9); Hemoglobin 16.2 gm/dl (10.1-14.3); Mean Corpuscular HGB Conc 33 % (30-34); Mean Corpuscular Volume 93 fl (79-97); Platelet Count 203 K/mm3 (140-440); Red Blood Count 5.32 M/mm3 (3.65-5.03)
[2021-04-14] MEDS: VENLAFAXINE 75 MG TAB PO SCH (10:16)
[2021-04-14] MEDS: DOXYCYCLINE 100 MG CAP PO SCH (10:16)
[2021-04-14] MEDS: buPROPion 100 MG TAB PO SCH (10:16)
[2021-04-14 10:20] LABS: Blood Urea Nitrogen 8 mg/dL (7-17); Calcium 9.1 mg/dL (8.4-10.2); Hemolysis Index 7
[2021-04-14 10:21] LABS: BUN/Creatinine Ratio 13
--- NOTE | 2021-04-14 11:05 | Progress Note ---
Assessment and Plan Assessment and plan: This is a 51 year old female with bipolar, DM, HTN, cellulites, COPD, abd wound s/p debridement, current tobacco abuse and noncompliance admitted with DKA, lactic acidosis and cellulitus Neuro History of bipolar -Resume home bupropion, lithium carbonate, venlafaxine -Supportive care -[place] level pending -Avoid delirium CV Hypertension -Patient reportedly takes HCTZlisinopril combo pill -Resume home lisinopril and add hydrochlorothiazide as needed -Hydralazine as needed -Blood pressure monitoring per protocol Polycythemia -Presenting H/H . -Likely related to dehydration -Trend CBC Respiratory COPD -Supplemental oxygen as needed -SPO2 monitoring -No acute exacerbation noted at this time Nicotine abuse -Patient was reports smoking 1 pack/day -Refuses NicoDerm patch at this time -Smoking cessation counseling FEN/GI: Hyponatremia ,resolved -S/p MIVF -Trend BMP Metabolic acidosis,resolved -Trend BMP : NAD -Voiding into toilet Endo: DM, hyperglycemia, s/p DKA -Presented with blood glucose ~1100 -Hemoglobin A1c 11.2 -S/p insulin drip -Transition to SSI, long-acting insulin-> titrate as needed -Hold home antidiabetic regimen -Need to follow-up with PCP outpatient Hypothyroidism -Resume home Synthroid -Need to follow-up with PCP outpatient Morbid obesity -Nutrition consult -Increase in physical activity and lifestyle modifications encouraged ID: Cellulitis -P.o. doxycycline Leukocytosis, resolved -Patient has cellulitis, presented with DKA -Trend CBC COVID-19 PUI -COVID-19 PCR negative MS: NAD -Patient is able to move all extremities, ambulate without assistance GI/DVT prophylaxis: Protonix, SCDs to bilateral lower extremities while in bed, Lovenox subcu Disposition: possible DC home today Lines: PIV History Interval history: This is a 51 year old female with bipolar, DM, HTN, cellulites, COPD, abd wound s/p debridement, current tobacco abuse and noncompliance who presented to the ED on 04/12 with complaints of SOB over the past 4 days and elevated blood glucose. Workup in the ED revealed a blood glucose of 1109, Bicarb of 15, AG of 22 consistent with DKA, lactic acid of 5.4 and physical exam revealed cellulitis. Patient was admitted to the hospitalist service with consults to [facility] on DKA protocol and started on antibiotics. 04/13: Patient's anion gap noted to be closed, transition to SSI and CC diet. Toby luevano has been tolerating CC diet and will be transferred to the floor. On interview patient reviewed that she recently started doxycycline on Saturday or Saturday which has been restarted during hospital stay. Hemoglobin A1c elevated at 11.2. 04/14: Patient reamins hyperglycemic and insulin changed, May be dc today. Leukocytosis,, metabolic acidosis and hyponatremia resolved. Hospitalist Physical - Constitutional Vitals: Temp Pulse Resp BP Pulse Ox 97.5 F L 61 20 126/48 93 04/14/21 04:21 04/14/21 04:21 04/14/21 04:21 04/14/21 04:04/14/21 04:21 General appearance: Present: no acute distress, well-nourished, obese - EENT Eyes: Present: PERRL, EOM intact ENT: hearing intact, clear oral mucosa - Neck Neck: Present: normal ROM - Respiratory Respiratory effort: normal Respiratory: bilateral: diminished - Cardiovascular Rhythm: regular Heart Sounds: Present: S1 & S2. Absent: systolic murmur, diastolic murmur - Extremities Extremities: no ischemia, pulses intact, pulses symmetrical, normal temperature, normal color Extremity abnormal: erythema (BLE) Peripheral Pulses: within normal limits - Abdominal General gastrointestinal: soft, non-tender, non-distended, normal bowel sounds - Integumentary Integumentary: Present: warm, dry - Psychiatric Psychiatric: cooperative - Neurologic Neurologic: CNII-XII intact, no focal deficits, moves all extremities - Allied Health Allied health notes reviewed: nursing, social work HEART Score - HEART Score Troponin: Troponin T 0.016 ng/mL (0.00-0.029) 04/12/21 20:25 Results - Labs CBC & Chem 7: 04/14/21 08:54 04/14/21 08:54 Labs: Laboratory Last Values WBC 9.7 K/mm3 (4.5-11.0) 04/14/21 08:54 RBC 5.32 M/mm3 (3.65-5.03) H 04/14/21 08:54 Hgb 16.2 gm/dl (10.1-14.3) H 04/14/21 08:54 Hct 49.2 % (30.3-42.9) H 04/14/21 08:54 MCV 93 fl (79-97) 04/14/21 08:54 MCH 31 pg (28-32) 04/14/21 08:54 MCHC 33 % (30-34) 04/14/21 08:54 RDW 14.0 % (13.2-15.2) 04/14/21 08:54 Plt Count 203 K/mm3 (140-440) 04/14/21 08:54 Lymph % (Auto) 7.9 % (13.4-35.0) L 04/12/21 20:25 [place] % (Auto) 3.8 % (0.0-7.3) 04/12/21 20:25 Eos % (Auto) 0.2 % (0.0-4.3) 04/12/21 20:25 Baso % (Auto) 0.7 % (0.0-1.8) 04/12/21 20:25 Lymph # (Auto) 1.2 K/mm3 (1.2-5.4) 04/12/21 20:25 [place] # (Auto) 0.5 K/mm3 (0.0-0.8) 04/12/21 20:25 Eos # (Auto) 0.0 K/mm3 (0.0-0.4) 04/12/21 20:25 Baso # (Auto) 0.1 K/mm3 (0.0-0.1) 04/12/21 20:25 Seg Neutrophils % 87.4 % (40.0-70.0) H 04/12/21 20:25 Seg Neutrophils # 12.8 K/mm3 (1.8-7.7) H 04/12/21 20:25 PT 14.7 Sec. (12.2-14.9) 04/12/21 20:25 INR 1.09 (0.87-1.13) 04/12/21 20:25 APTT 26.8 Sec. (24.2-36.6) 04/12/21 20:25 VBG pH 7.283 (7.320-7.420) L 04/12/21 20:25 Sodium 138 mmol/L (137-145) D 04/14/21 08:54 Potassium 4.4 mmol/L (3.6-5.0) 04/14/21 08:54 Chloride 102.6 mmol/L (98-107) 04/14/21 08:54 Carbon Dioxide 24 mmol/L (22-30) 04/14/21 08:54 Anion Gap 16 mmol/L 04/14/21 08:54 BUN 8 mg/dL (7-17) 04/14/21 08:54 Creatinine 0.6 mg/dL (0.6-1.2) 04/14/21 08:54 Estimated GFR > 60 ml/min 04/14/21 08:54 BUN/Creatinine Ratio 13 % 04/14/21 08:54 Glucose 225 mg/dL (65-100) H 04/14/21 08:54 POC Glucose 236 mg/dL (70-105) H 04/14/21 07:25 Hemoglobin A1c 11.2 % (4-6) H 04/13/21 08:10 Lactic Acid 1.90 mmol/L (0.7-2.0) 04/13/21 07:39 Calcium 9.1 mg/dL (8.4-10.2) 04/14/21 08:54 Phosphorus 2.90 mg/dL (2.5-4.5) 04/12/21 23:18 Magnesium 2.10 mg/dL (1.7-2.3) 04/12/21 23:18 Total Bilirubin 0.20 mg/dL (0.1-1.2) 04/12/21 20:25 AST 11 units/L (5-40) 04/12/21 20:25 ALT 12 units/L (7-56) 04/12/21 20:25 Alkaline Phosphatase 110 units/L (35-129) 04/12/21 20:25 Total Creatine Kinase 37 units/L (30-135) 04/12/21 20:25 CK-MB (CK-2) 2.5 ng/mL (0.0-4.0) 04/12/21 20:25 CK-MB (CK-2) Rel Index 6.7 (0-4) H 04/12/21 20:25 Troponin T 0.016 ng/mL (0.00-0.029) 04/12/21 20:25 Total Protein 7.4 g/dL (6.3-8.2) 04/12/21 20:25 Albumin 3.3 g/dL (3.9-5) L 04/12/21 20:25 Albumin/Globulin Ratio 0.8 % 04/12/21 20:25 Urine Color Yellow (Yellow) 04/13/21 08:40 Urine Turbidity Clear (Clear) 04/13/21 08:40 Urine pH 7.0 (5.0-7.0) 04/13/21 08:40 Ur Specific [place] 1.026 (1.003-1.030) 04/13/21 08:40 Urine Protein 30 mg/dl mg/dL (Negative) 04/13/21 08:40 Urine Glucose (UA) >=500 mg/dL (Negative) 04/13/21 08:40 Urine Ketones Neg mg/dL (Negative) 04/13/21 08:40 Urine Blood Neg (Negative) 04/13/21 08:40 Urine Nitrite Neg (Negative) 04/13/21 08:40 Urine Bilirubin Neg (Negative) 04/13/21 08:40 Urine Urobilinogen < 2.0 mg/dL (<2.0) 04/13/21 08:40 Ur Leukocyte Esterase Neg (Negative) 04/13/21 08:40 Urine WBC (Auto) 5.0 /HPF (0.0-6.0) 04/13/21 08:40 Urine RBC (Auto) 3.0 /HPF (0.0-6.0) 04/13/21 08:40 U Epithel Cells (Auto) 5.0 /HPF (0-13.0) 04/13/21 08:40 Urine Bacteria (Auto) 2+ /HPF (Negative) 04/13/21 08:40 Urine Yeast (Budding) 2+ /HPF 04/13/21 08:40 Urine Opiates Screen Negative 04/13/21 08:40 Urine Methadone Screen Negative 04/13/21 08:40 Ur Barbiturates Screen Negative 04/13/21 08:40 Ur Phencyclidine Scrn Negative 04/13/21 08:40 Ur Amphetamines Screen Negative 04/13/21 08:40 U Benzodiazepines Scrn Negative 04/13/21 08:40 Urine Cocaine Screen Negative 04/13/21 08:40 U Marijuana (THC) Screen Negative 04/13/21 08:40 Drugs of Abuse Note Disclamer 04/13/21 08:40 Coronavirus (PCR) Negative (Negative) 04/13/21 Unknown Tian/IV: Voiding Method Toilet Active Medications - Current Medications Current Medications: Generic Name Dose Route Start Last Admin Trade Name Freq PRN Reason Stop Dose Admin Albuterol 2.5 mg 04/12/21 22:22 Albuterol 2.5 Mg/3 Ml Nebu IH Q4HRT PRN Shortness Of Breath Bupropion HCl 100 mg 04/13/21 22:00 04/14/21 10:16 Bupropion 100 Mg Tab PO 100 mg BID SHANTHI Administration Dextrose 50 ml 04/13/21 08:44 Dextrose 50% In Water (25gm) 50 Ml Syringe IV Q30MIN PRN Hypoglycemia Protocol Doxycycline Hyclate 100 mg 04/13/21 12:00 04/14/21 10:16 Doxycycline 100 Mg Cap PO 04/19/21 22:01 100 mg BID SHANTHI Administration Protocol Heparin Sodium (Porcine) 5,000 unit 04/13/21 06:00 04/14/21 05:43 Heparin 5,000 Unit/1 Ml Vial SUB-Q 5,000 unit Q8HR SHANTHI Administration Hydralazine HCl 10 mg 04/12/21 22:12 Hydralazine 20 Mg/1 Ml Inj IV Q6H PRN Blood Pressure Insulin Glargine 40 units 04/14/21 22:00 Insulin Glargine 100 Units/Ml SUB-Q QHS SHANTHI Insulin Human Lispro 0 unit 04/13/21 11:30 04/14/21 08:15 Insulin Lispro 100 Unit/Ml SUB-Q 4 unit ACHS SHANTHI Administration Protocol Insulin Human Lispro 5 unit 04/14/21 07:30 04/14/21 08:18 Insulin Lispro 100 Unit/Ml SUB-Q 5 unit AC SHANTHI Administration Levothyroxine Sodium 112 mcg 04/14/21 06:00 04/14/21 05:42 Levothyroxine 112 Mcg Tab PO 112 mcg DAILY@0600 SHANTHI Administration [place] Carbonate 300 mg 04/13/21 22:00 04/13/21 22:24 [place] Carbonate 300 Mg Cap PO 300 mg Q12HR SHANTHI Administration Pantoprazole Sodium 40 mg 04/14/21 07:30 04/14/21 10:16 Pantoprazole 40 Mg Tab PO 40 mg QDAC SHANTHI Administration Venlafaxine HCl 75 mg 04/13/21 22:00 04/14/21 10:16 Venlafaxine 75 Mg Tab PO 75 mg BID SHANTHI Administration Nutrition/Malnutrition Assess - Dietary Evaluation Nutrition/Malnutrition Findings: Nutrition Notes Start: 04/13/21 11:13 Freq: Status: Active Protocol: Document 04/13/21 11:13 LISA (Rec: 04/13/21 11:15 LISA [email or web address]) Nutrition Notes Need for Assessment 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 RN screen for skin risk. Pt with abd ulcer and cellulitis on LE per chart. Unable to speak with pt. Nutrition Intervention Follow-Up By: 04/14/21 Additional Comments FU for assessment and diet education
[2021-04-14] MEDS: LITHIUM CARBONATE 300 MG CAP PO SCH (11:29)
--- NOTE | 2021-04-14 17:02 | Discharge Summary ---
Providers - Providers Date of Admission: 04/12/21 21:36 Date of discharge: 04/14/21 Attending physician: HEMA GOMEZ MD 04/12/21 22:08 Consult to Dietitian/Nutrition [CONS] Routine Physician Instructions: Reason For Exam: DKA Reason for Consult: Nutrition Recommendations Reason for Consult: Diet education 04/14/21 10:00 Consult to Wound/ET Nurse [CONS] Routine Reason For Exam: wound eval ABD AND BILAT LOWER LEGS Primary care physician: ASSISTANT LIBRARIAN Hospitalization Condition: Stable Hospital course: This is a 51 year old female with bipolar, DM, HTN, cellulites, COPD, abd wound s/p debridement, current tobacco abuse and noncompliance admitted with DKA, lactic acidosis and cellulitus Neuro History of bipolar -Resume home bupropion, lithium carbonate, venlafaxine -Supportive care -[place] level pending -Avoid delirium CV Hypertension -Patient reportedly takes HCTZlisinopril combo pill -Resume home lisinopril and add hydrochlorothiazide as needed -Hydralazine as needed -Blood pressure monitoring per protocol Polycythemia -Presenting H/H -Likely related to dehydration -Trend CBC Respiratory COPD -Supplemental oxygen as needed -SPO2 monitoring -No acute exacerbation noted at this time Nicotine abuse -Patient was reports smoking 1 pack/day -Refuses NicoDerm patch at this time -Smoking cessation counseling FEN/GI: Hyponatremia ,resolved -S/p MIVF -Trend BMP Metabolic acidosis,resolved -Trend BMP : NAD -Voiding into toilet Endo: DM, hyperglycemia, s/p DKA -Presented with blood glucose ~1100 -Hemoglobin A1c 11.2 -S/p insulin drip -Transition to SSI, long-acting insulin-> titrate as needed -Hold home antidiabetic regimen -Need to follow-up with PCP outpatient Hypothyroidism -Resume home Synthroid -Need to follow-up with PCP outpatient Morbid obesity -Nutrition consult -Increase in physical activity and lifestyle modifications encouraged ID: Cellulitis -P.o. doxycycline Leukocytosis, resolved -Patient has cellulitis, presented with DKA -Trend CBC COVID-19 PUI -COVID-19 PCR negative MS: NAD -Patient is able to move all extremities, ambulate without assistance History Interval history: This is a 51 year old female with bipolar, DM, HTN, cellulites, COPD, abd wound s/p debridement, current tobacco abuse and noncompliance who presented to the ED on 04/12 with complaints of SOB over the past 4 days and elevated blood glucose. Workup in the ED revealed a blood glucose of 1109, Bicarb of 15, AG of 22 consistent with DKA, lactic acid of 5.4 and physical exam revealed cellulitis. Patient was admitted to the hospitalist service with consults to [facility] on DKA protocol and started on antibiotics. 04/13: Patient's anion gap noted to be closed, transition to SSI and CC diet. Patient has been tolerating CC diet and will be transferred to the floor. On interview patient reviewed that she recently started doxycycline on Saturday or Saturday which has been restarted during hospital stay. Hemoglobin A1c elevated at 11.2. 04/14: Patient reassessed this afternoon, blood glucose downtrending, 239. Patient states that she would like to go home, she is fully aware of what she needs to do to take care of her blood glucose, states that she does not need a prescription for insulin, has all of her diabetic medications at home. Patient feels comfortable going home, will follow up with her endocrine clinic. Disposition: DC-30 STILL A PATIENT Final Discharge Diagnosis (Prints w/discharge instructions): Diabetic ketoacidosis. History of bipolar disease. Hypertension. Polycythemia. COPD without exacerbation. Nicotine abuse. Metabolic acidosis. Hypothyroidism. Morbid obesity. Cellulitis. Leukocytosis Time spent for discharge: 35 minutes Core Measure Documentation - Palliative Care Palliative Care/ Comfort Measures: Not Applicable - Core Measures Any of the following diagnoses?: none Exam - Physical Exam Narrative exam: See progress note from today. Patient was seen and examined, respiratory rate normal, heart rate normal. - Constitutional Vitals: Temp Pulse Resp BP Pulse Ox 97.5 F L 66 20 126/48 94 04/14/21 04:21 04/14/21 11:09 04/14/21 04:21 04/14/21 04:21 04/14/21 11:09 Plan Activity: no restrictions Diet: diabetic Follow up with: PRIMARY CARE, [Primary Care Provider] - 3-5 Days Prescriptions: Doxycycline Hyclate [Doxycycline Hyclate TAB] 100 mg PO Q12HR 7 Days #14
[2021-04-14] MEDS ORDERED: INSULIN GLARGINE 100 UNITS/ML SUB-Q SCH ×2 (22:00)
== END 2021-04-14 18:20 | disposition home or self-care (01) | DRG 637 ==
LOC: ED 19:10 → CC1 21:36 → 3A 04-13 20:36
PROVIDERS: ADMIT Hospitalist; ATTEND Family Medicine
DX: E11.10 Type 2 diabetes mellitus with ketoacidosis without coma (principal); J96.01 Acute respiratory failure with hypoxia; G93.41 Metabolic encephalopathy; E87.1 Hypo-osmolality and hyponatremia; L03.818 Cellulitis of other sites; Z68.43 Body mass index [BMI] 50.0-59.9, adult; Z20.822 Contact with and (suspected) exposure to COVID-19; J44.9 Chronic obstructive pulmonary disease, unspecified; I10 Essential (primary) hypertension; E86.0 Dehydration; D75.1 Secondary polycythemia; F17.210 Nicotine dependence, cigarettes, uncomplicated; E87.8 Other disorders of electrolyte and fluid balance, not elsewhere classified; N28.9 Disorder of kidney and ureter, unspecified; E11.65 Type 2 diabetes mellitus with hyperglycemia; E03.9 Hypothyroidism, unspecified; E66.01 Morbid (severe) obesity due to excess calories; Z91.14 Patient's other noncompliance with medication regimen; Z71.6 Tobacco abuse counseling; Z79.899 Other long term (current) drug therapy; Z88.0 Allergy status to penicillin; Z88.1 Allergy status to other antibiotic agents
CPT/HCPCS: 36415; 71045; 80048; 80053; 80307; 81001; 82140; 82550; 82553; 82805; 82962; 83036; 83735; 84100; 84484; 85025; 85027; 85610; 85730; 93005; 94640; 96360; G0378; C9113; J1644; J1815; J3480; J7030; U0003

== ENCOUNTER 2022-06-27 20:06 | Inpatient (IN) | payer MEDICARE ==
[2022-06-27] MEDS ORDERED: AMIODARONE 150 MG/100 ML-ED 150 MG/100 ML BAG IV ONE ×2 (20:19→20:45)
[2022-06-27] MEDS ORDERED: SODIUM CHLORIDE 0.9% 1000 ML 1,000 ML IV ONE ×2 (20:49→23:24)
[2022-06-27] MEDS ORDERED: SODIUM CHLORIDE 0.9% 1000 ML 1,000 ML ONE (20:49)
--- NOTE | 2022-06-27 21:06 | XRay Report ---
CHEST 1 VIEW 06/27/2022 7:52 PM INDICATION / CLINICAL INFORMATION: Tachycardia. COMPARISON: 04/12/2021 FINDINGS: SUPPORT DEVICES: None. HEART / MEDIASTINUM: No significant abnormality. LUNGS / PLEURA: Low lung volumes without focal consolidation. No pneumothorax. ADDITIONAL FINDINGS: No significant additional findings. IMPRESSION: 1. No acute findings. Signer Name: Steve Mclain DO Signed: 06/27/2022 9:01 PM Workstation Name: [id number]
[2022-06-27 21:32] LABS: Albumin 3.1 g/dL (3.9-5); Calcium 8.4 mg/dL (8.4-10.2)
[2022-06-27 21:47] LABS: Basophils # (Auto) 0.1 K/mm3 (0.0-0.1); Basophils % (Auto) 0.3 % (0.0-1.8); Hematocrit 47.1 % (30.3-42.9); Hemoglobin 15.1 gm/dl (10.1-14.3); Lymphocytes # (Auto) 1.2 K/mm3 (1.2-5.4); Lymphocytes % (Auto) 6.3 % (13.4-35.0); Mean Corpuscular HGB Conc 32 % (30-34); Mean Corpuscular Volume 95 fl (79-97); Monocytes # (Auto) 0.9 K/mm3 (0.0-0.8); Monocytes % (Auto) 4.8 % (0.0-7.3); Platelet Count 213 K/mm3 (140-440); Red Blood Count 4.95 M/mm3 (3.65-5.03); Red Cell Distribution Width 14.5 % (13.2-15.2)
--- NOTE | 2022-06-27 22:19 | Emergency Department Report ---
<JESSICA SPANN - Last Filed: 06/27/22 23:26> ED General Adult HPI - General Chief complaint: Chest Pain Stated complaint: CHEST PAIN Time Seen by Provider: 06/27/22 20:33 Source: EMS Mode of arrival: Stretcher Limitations: No Limitations - History of Present Illness Initial comments: Patient presents to the emergency department chief complaint of shortness of breath and not feeling well. Patient states the symptoms have been present for the last couple of days. Patient states she is having heart palpitations but denies any chest pain. -: Gradual Severity scale (0 -10): 0 Consistency: constant Improves with: none Worsens with: none Associated Symptoms: denies other symptoms Treatments Prior to Arrival: none - Related Data Home Medications Medication Instructions Recorded Confirmed Last Taken Apixaban [Eliquis] 5 mg PO BID 04/13/21 04/13/21 Unknown Empagliflozin [Jardiance] 25 mg DAILY 04/13/21 04/13/21 Unknown Fenofibrate 160 mg PO DAILY 04/13/21 04/13/21 Unknown Glimepiride 4 mg BID 04/13/21 04/13/21 Unknown Insulin Aspart (Nf) [NovoLOG 100 unit SQ PRN PRN 04/13/21 04/13/21 Unknown Flexpen] Levothyroxine [Synthroid] 112 mcg PO QAM 04/13/21 04/13/21 Unknown Lisinopril/Hydrochlorothiazide 1 tab PO QDAY 04/13/21 04/13/21 Unknown [Zestoretic 20-12.5 mg] [place] Carbonate 600 mg PO QHS 04/13/21 04/13/21 Unknown [place] Carbonate [Eskalith] 150 mg PO QAM 04/13/21 04/13/21 Unknown Lurasidone [Latuda] 40 mg QHS 04/13/21 04/13/21 Unknown Oxybutynin Chloride [Ditropan Xl] 15 mg PO QDAY 04/13/21 04/13/21 Unknown Semaglutide [Ozempic] 1 unit SQ 1XW 04/13/21 04/13/21 Unknown Venlafaxine HCl [Venlafaxine HCl 150 mg DAILY 04/13/21 04/13/21 Unknown ER] buPROPion SR [Wellbutrin SR] 100 mg PO DAILY 04/13/21 04/13/21 Unknown Previous Rx's Medication Instructions Recorded Last Taken Type Doxycycline Hyclate [Doxycycline 100 mg PO Q12HR 7 Days #14 04/14/21 Unknown Rx Hyclate TAB] Allergies Allergy/AdvReac Type Severity Reaction Status Date / Time ciprofloxacin [From Cipro] Allergy Unknown Verified 05/28/22 12:07 Penicillins Allergy Unknown Verified 05/28/22 12:07 ED Review of Systems Comment: All other systems reviewed and negative Constitutional: denies: chills, fever Eyes: denies: eye pain, eye discharge, vision change ENT: denies: ear pain, throat pain Respiratory: shortness of breath. denies: cough, wheezing Cardiovascular: denies: chest pain, palpitations Endocrine: no symptoms reported Gastrointestinal: denies: abdominal pain, nausea, diarrhea Genitourinary: denies: urgency, dysuria, discharge Musculoskeletal: denies: back pain, joint swelling, arthralgia Skin: denies: rash, lesions Neurological: denies: headache, weakness, paresthesias Psychiatric: denies: anxiety, depression Hematological/Lymphatic: denies: easy bleeding, easy bruising ED Past Medical Hx - Past Medical History Previous Medical History?: Yes Hx Hypertension: Yes Hx CVA: No Hx Heart Attack/AMI: No Hx Congestive Heart Failure: No Hx Diabetes: Yes Hx Renal Disease: No Hx COPD: Yes - Social History Smoking Status: Current Every Day Smoker Substance Use Type: None - Medications Home Medications: Home Medications Medication Instructions Recorded Confirmed Last Taken Type Apixaban [Eliquis] 5 mg PO BID 04/13/21 04/13/21 Unknown History Empagliflozin [Jardiance] 25 mg DAILY 04/13/21 04/13/21 Unknown History Fenofibrate 160 mg PO DAILY 04/13/21 04/13/21 Unknown History Glimepiride 4 mg BID 04/13/21 04/13/21 Unknown History Insulin Aspart (Nf) [NovoLOG 100 unit SQ PRN PRN 04/13/21 04/13/21 Unknown History Flexpen] Levothyroxine [Synthroid] 112 mcg PO QAM 04/13/21 04/13/21 Unknown History Lisinopril/Hydrochlorothiazide 1 tab PO QDAY 04/13/21 04/13/21 Unknown History [Zestoretic 20-12.5 mg] [place] Carbonate 600 mg PO QHS 04/13/21 04/13/21 Unknown History [place] Carbonate [Eskalith] 150 mg PO QAM 04/13/21 04/13/21 Unknown History Lurasidone [Latuda] 40 mg QHS 04/13/21 04/13/21 Unknown History Oxybutynin Chloride [Ditropan Xl] 15 mg PO QDAY 04/13/21 04/13/21 Unknown History Semaglutide [Ozempic] 1 unit SQ 1XW 04/13/21 04/13/21 Unknown History Venlafaxine HCl [Venlafaxine HCl 150 mg DAILY 04/13/21 04/13/21 Unknown History ER] buPROPion SR [Wellbutrin SR] 100 mg PO DAILY 04/13/21 04/13/21 Unknown History Doxycycline Hyclate [Doxycycline 100 mg PO Q12HR 7 Days #14 04/14/21 Unknown Rx Hyclate TAB] ED Physical Exam - General Limitations: No Limitations General appearance: alert, in no apparent distress - Head Head exam: Present: atraumatic, normocephalic - Eye Eye exam: Present: normal appearance, PERRL, EOMI - ENT ENT exam: Present: mucous membranes dry - Respiratory Respiratory exam: Present: normal lung sounds bilaterally, rhonchi. Absent: respiratory distress - Cardiovascular Cardiovascular Exam: Present: tachycardia, irregular rhythm - GI/Abdominal GI/Abdominal exam: Present: soft, normal bowel sounds. Absent: distended, tenderness - Neurological Exam Neurological exam: Present: alert, oriented X3, CN II-XII intact. Absent: motor sensory deficit - Psychiatric Psychiatric exam: Present: normal affect, normal mood - Skin Skin exam: Present: warm, dry, other (Patient has discoloration to the lower extremities) ED Medical Decision Making - Lab Data Result diagrams: 06/27/22 20:48 06/27/22 20:48 Lab Results 06/27/22 06/27/22 Range/Units 20:48 20:48 WBC 18.7 H (4.5-11.0) K/mm3 RBC 4.95 (3.65-5.03) M/mm3 Hgb 15.1 H (10.1-14.3) gm/dl Hct 47.1 H (30.3-42.9) % MCV 95 (79-97) fl MCH 31 (28-32) pg MCHC 32 (30-34) % RDW 14.5 (13.2-15.2) % Plt Count 213 (140-440) K/mm3 Lymph % (Auto) 6.3 L (13.4-35.0) % [place] % (Auto) 4.8 (0.0-7.3) % Eos % (Auto) 0.0 (0.0-4.3) % Baso % (Auto) 0.3 (0.0-1.8) % Lymph # (Auto) 1.2 (1.2-5.4) K/mm3 [place] # (Auto) 0.9 H (0.0-0.8) K/mm3 Eos # (Auto) 0.0 (0.0-0.4) K/mm3 Baso # (Auto) 0.1 (0.0-0.1) K/mm3 Seg Neutrophils % 88.6 H (40.0-70.0) % Seg Neutrophils # 16.5 H (1.8-7.7) K/mm3 Sodium 123 L (137-145) mmol/L Potassium 6.9 H* (3.6-5.0) mmol/L Chloride 82.4 L (98-107) mmol/L Carbon Dioxide 7 L* (22-30) mmol/L Anion Gap 41 mmol/L BUN 50 H (7-17) mg/dL Creatinine 2.2 H (0.6-1.2) mg/dL Estimated GFR 23 ml/min BUN/Creatinine Ratio 23 % Glucose 578 H* (65-100) mg/dL Calcium 8.4 (8.4-10.2) mg/dL Magnesium 2.70 H (1.7-2.3) mg/dL Total Bilirubin 0.90 (0.1-1.2) mg/dL AST 50 H (5-40) units/L ALT 28 (7-56) units/L Alkaline Phosphatase 97 (35-129) units/L Troponin T 0.080 H (0.00-0.029) ng/mL NT-Pro-B Natriuret Pep 4137 H (0-900) pg/mL Total Protein 7.0 (6.3-8.2) g/dL Albumin 3.1 L (3.9-5) g/dL Albumin/Globulin Ratio 0.8 % - EKG Data -: EKG Interpreted by Me Rate: tachycardia - EKG Data Interpretation: other (Irregularly irregular) - Radiology Data Radiology results: report reviewed - Medical Decision Making On the patient's initial arrival the patient's current rhythm was initially t hought to be SVT but after further evaluation it appeared to be atrial fibrillation Patient was given amiodarone due to the undetermined rhythm on initial evaluation The patient became hypotensive and bradycardic Patient given 0.5 mg atropine with a heart rate increasing to 80 from heart rate of 39 Due to the patient's elevated white count lactic acid and blood cultures were obtained and IV antibiotics were initiated IV fluids were given Further laboratory values returned showing the patient to be in DKA Insulin drip initiated Critical Care Time: Yes Critical care time in (mins) excluding proc time.: 35 ED Disposition Clinical Impression: DKA (diabetic ketoacidoses) Disposition: 09 ADMITTED INPATIENT Is pt being admited?: Yes Does the pt Need Aspirin: Yes Condition: Critical Instructions: Diabetic Ketoacidosis (ED) <ROBEL VALDES - Last Filed: 06/28/22 01:57> ED General Adult HPI - General PUI?: No ED Review of Systems ROS: Stated complaint: CHEST PAIN Other details as noted in HPI ED Course Vital Signs 06/27/22 06/27/22 06/27/22 20:07 20:25 20:46 Temperature 97.4 F L Pulse Rate 133 H 125 H 146 H Respiratory 35 H 33 H 33 H Rate Blood Pressure 83/45 Blood Pressure 96/68 83/45 [Left] O2 Sat by Pulse 98 94 97 Oximetry 06/27/22 06/27/22 06/27/22 21:01 21:15 21:31 Temperature Pulse Rate 77 82 85 Respiratory 32 H 23 28 H Rate Blood Pressure 104/47 116/58 108/65 Blood Pressure [Left] O2 Sat by Pulse 98 98 98 Oximetry 06/27/22 06/27/22 06/27/22 21:45 22:00 22:15 Temperature Pulse Rate 83 82 79 Respiratory 27 H 25 H 29 H Rate Blood Pressure 115/74 118/75 112/73 Blood Pressure [Left] O2 Sat by Pulse 99 98 Oximetry 06/27/22 06/27/22 06/27/22 22:45 23:01 23:15 Temperature Pulse Rate 73 Respiratory 27 H Rate Blood Pressure 121/79 122/70 127/75 Blood Pressure [Left] O2 Sat by Pulse 98 98 97 Oximetry ED Medical Decision Making - Lab Data Result diagrams: 06/27/22 20:48 06/27/22 23:56 Critical care attestation.: If time is entered above; I have spent that time in minutes in the direct care of this critically ill patient, excluding procedure time. ED Disposition Is pt being admited?: Yes Does the pt Need Aspirin: No
[2022-06-27] MEDS ORDERED: ATROPINE 1 MG/ML VIAL IV ONE (22:22)
[2022-06-27] MEDS ORDERED: POTASSIUM CHLORIDE 10 MEQ 10 MEQ/100 ML BAG IV PRN ×2 (23:24)
[2022-06-27] MEDS ORDERED: DEXTROSE 50% IN WATER (25GM) 50 ML SYRINGE IV PRN (23:24)
[2022-06-27] MEDS ORDERED: D5W/0.45% NACL/KCL 20 MEQ 20 MEQ/1,000 ML BAG IV SCH (23:45)
[2022-06-28 00:53] LABS: Calcium 8.6 mg/dL (8.4-10.2)
[2022-06-28] MEDS ORDERED: SODIUM CHLORIDE 0.9% 1000 ML 1,000 ML IV ONE ×2 (01:50→15:00)
[2022-06-28] MEDS: INSULIN REGULAR, HUMAN 100 UNITS in SODIUM CHLORIDE 0.9% 99 ML IV SCH ×2 (02:02→11:43)
[2022-06-28 02:03] LABS: Chol/HDL Ratio 4.1 %
[2022-06-28] MEDS ORDERED: MORPHINE 4 MG/1 ML INJ IV PRN (03:09)
[2022-06-28] MEDS ORDERED: ACETAMINOPHEN 325 MG TAB PO PRN (03:09)
[2022-06-28] MEDS ORDERED: MORPHINE 2 MG/1 ML INJ IV PRN (03:09)
--- NOTE | 2022-06-28 03:22 | History and Physical Report ---
History of Present Illness Date of examination: 06/28/22 Date of admission: 06/28/2022 Chief complaint: Shortness of Breath History of present illness: 52-year-old -[place] female with known history of diabetes mellitus, hypertension, COPD presenting in the emergency room today complaining of shortness of breath. She has also had occasional palpitations. Patient denies any fever or chills, no headache or dizziness, no diaphoresis. Patient has had some nausea but no vomiting, no abdominal pain and no diarrhea. Work-up in the emergency room today,Significant findings on the labs includes potassium level of 6.4, sodium level of 121, anion gap of 40, BUN of 54 and creatinine of 2.5. Blood glucose was 562. Chest x-ray shows no acute findings. Patient being admitted for diabetic ketoacidosis. She has been started on IV fluid and insulin drip. Past History Past Medical History: COPD, diabetes, hypertension Social history: smoking ( Current Every Day Smoker) Family history: no significant family history Medications and Allergies Allergies Allergy/AdvReac Type Severity Reaction Status Date / Time ciprofloxacin [From Cipro] Allergy Unknown Verified 05/28/22 12:07 Penicillins Allergy Unknown Verified 05/28/22 12:07 Home Medications Medication Instructions Recorded Confirmed Last Taken Type Apixaban [Eliquis] 5 mg PO BID 04/13/21 04/13/21 Unknown History Empagliflozin [Jardiance] 25 mg DAILY 04/13/21 04/13/21 Unknown History Fenofibrate 160 mg PO DAILY 04/13/21 04/13/21 Unknown History Glimepiride 4 mg BID 04/13/21 04/13/21 Unknown History Insulin Aspart (Nf) [NovoLOG 100 unit SQ PRN PRN 04/13/21 04/13/21 Unknown History Flexpen] Levothyroxine [Synthroid] 112 mcg PO QAM 04/13/21 04/13/21 Unknown History Lisinopril/Hydrochlorothiazide 1 tab PO QDAY 04/13/21 04/13/21 Unknown History [Zestoretic 20-12.5 mg] [place] Carbonate 600 mg PO QHS 04/13/21 04/13/21 Unknown History [place] Carbonate [Eskalith] 150 mg PO QAM 04/13/21 04/13/21 Unknown History Lurasidone [Latuda] 40 mg QHS 04/13/21 04/13/21 Unknown History Oxybutynin Chloride [Ditropan Xl] 15 mg PO QDAY 04/13/21 04/13/21 Unknown History Semaglutide [Ozempic] 1 unit SQ 1XW 04/13/21 04/13/21 Unknown History Venlafaxine HCl [Venlafaxine HCl 150 mg DAILY 04/13/21 04/13/21 Unknown History ER] buPROPion SR [Wellbutrin SR] 100 mg PO DAILY 04/13/21 04/13/21 Unknown History Doxycycline Hyclate [Doxycycline 100 mg PO Q12HR 7 Days #14 04/14/21 Unknown Rx Hyclate TAB] Active Meds: Active Medications Acetaminophen (Acetaminophen 325 Mg Tab) 650 mg PO Q6H PRN PRN Reason: Pain MILD(1-3)/Fever >100.5/MURILLO Dextrose (Dextrose 50% In Water (25gm) 50 Ml Syringe) 0 ml IV Q30MIN PRN; Protocol PRN Reason: Hypoglycemia Insulin Human Regular 100 (units/ Sodium Chloride) 100 mls @ 1 mls/hr IV TITR SHANTHI; Protocol Last Admin: 06/28/22 02:02 Dose: 8 units/hr, 8 mls/hr Potassium Chloride/Dextrose/Sod Cl (D5w/0.45% Nacl/Kcl 20 Meq) 20 meq in 1,000 mls @ 125 mls/hr IV DIRECT SHANTHI Potassium Chloride (Kcl 10meq/100ml) 10 meq in 100 mls @ 100 mls/hr IV Q1H PRN PRN Reason: LOW Potassium Levels Potassium Chloride (Kcl 10meq/100ml) 10 meq in 100 mls @ 100 mls/hr IV Q1H PRN PRN Reason: LOW Potassium Levels Sodium Chloride (Nacl 0.9% 1000 Ml) 1,000 mls @ 150 mls/hr IV DIRECT SHANTHI Morphine Sulfate (Morphine 2 Mg/1 Ml Inj) 2 mg IV Q4H PRN PRN Reason: Pain, Moderate (4-6) Morphine Sulfate (Morphine 4 Mg/1 Ml Inj) 4 mg IV Q4H PRN PRN Reason: Pain , Severe (7-10) Ondansetron HCl (Ondansetron 4 Mg/2 Ml Inj) 4 mg IV Q8H PRN PRN Reason: Nausea And Vomiting Sodium Chloride (Sodium Chloride 0.9% 10 Ml Flush Syringe) 10 ml IV BID SHANTHI Sodium Chloride (Sodium Chloride 0.9% 10 Ml Flush Syringe) 10 ml IV PRN PRN PRN Reason: LINE FLUSH Review of Systems Constitutional: no fever, no chills Ears, nose, mouth and throat: no nasal congestion, no sore throat Cardiovascular: no chest pain, no palpitations Respiratory: shortness of breath, no cough Gastrointestinal: no abdominal pain, no nausea, no vomiting, no diarrhea Genitourinary Female: no pelvic pain, no flank pain, no dysuria, no hematuria Musculoskeletal: no neck pain, no low back pain Integumentary: no rash, no pruritis Neurological: no headaches, no confusion Psychiatric: no anxiety, no depression Endocrine: no polyphagia, no polydipsia, no polyuria, no nocturia Exam - Constitutional Vitals: Temp Pulse Resp BP Pulse Ox 97.4 F L 73 27 H 127/75 97 06/27/22 20:25 06/27/22 23:15 06/27/22 23:15 06/27/22 23:15 06/27/22 23:15 General appearance: Present: no acute distress, well-nourished, obese - EENT Eyes: Present: PERRL, EOM intact. Absent: scleral icterus ENT: hearing intact, clear oral mucosa, dentition normal - Neck Neck: Present: supple, normal ROM - Respiratory Respiratory effort: normal Respiratory: bilateral: CTA - Cardiovascular Rhythm: regular Heart Sounds: Present: S1 & S2. Absent: gallop, systolic murmur, diastolic murmur, rub, click - Extremities Extremities: no ischemia, pulses intact, pulses symmetrical, normal temperature, normal color, Full ROM Extremity abnormal: edema (Trace bilateral lower extremity edema) Peripheral Pulses: within normal limits - Abdominal General gastrointestinal: Present: soft, non-tender, non-distended, normal bowel sounds. Absent: mass - Integumentary Integumentary: Present: clear, warm, dry, normal turgor. Absent: rash - Musculoskeletal Musculoskeletal: strength equal bilaterally - Psychiatric Psychiatric: appropriate mood/affect, intact judgment & insight, memory intact, cooperative - Neurologic Neurologic: CNII-XII intact, no focal deficits, moves all extremities HEART Score - HEART Score Troponin: Troponin T 0.080 ng/mL (0.00-0.029) H 06/27/22 20:48 Results - Labs CBC & Chem 7: 06/27/22 20:48 06/28/22 01:45 Labs: Abnormal lab results 06/27/22 06/27/22 06/27/22 Range/Units 20:48 20:48 23:56 WBC 18.7 H (4.5-11.0) K/mm3 Hgb 15.1 H (10.1-14.3) gm/dl Hct 47.1 H (30.3-42.9) % Lymph % (Auto) 6.3 L (13.4-35.0) % [place] # (Auto) 0.9 H (0.0-0.8) K/mm3 Seg Neutrophils % 88.6 H (40.0-70.0) % Seg Neutrophils # 16.5 H (1.8-7.7) K/mm3 Sodium 123 L 121 L (137-145) mmol/L Potassium 6.9 H* 6.4 H* (3.6-5.0) mmol/L Chloride 82.4 L 79.7 L (98-107) mmol/L Carbon Dioxide 7 L* 8 L* (22-30) mmol/L BUN 50 H 54 H (7-17) mg/dL Creatinine 2.2 H 2.5 H (0.6-1.2) mg/dL Glucose 578 H* 562 H* (65-100) mg/dL Phosphorus 10.40 H (2.5-4.5) mg/dL Magnesium 2.70 H 2.60 H (1.7-2.3) mg/dL AST 50 H (5-40) units/L Troponin T 0.080 H (0.00-0.029) ng/mL NT-Pro-B Natriuret Pep 4137 H (0-900) pg/mL Albumin 3.1 L (3.9-5) g/dL Triglycerides 349 H (2-149) mg/dL LDL Cholesterol Direct 37 L (50-130) mg/dL HDL Cholesterol 38 L (40-59) mg/dL Assessment and Plan Assessment: 1.Diabetic Ketoacidosis 2.H/O COPD 3.Hypertension - blood pressure controlled 4.STEFFANIE Plan: 1. Patient placed on insulin drip and IV fluid. We will monitor Accu-Cheks. 2. We will place consult to nephrology for evaluation of the renal function. 3. We will monitor labs closely. DVT : SQ Heparin Code Status: Full Code.
[2022-06-28 03:24] LABS: Calcium 8.1 mg/dL (8.4-10.2)
[2022-06-28] MEDS: SODIUM CHLORIDE 0.9% 1000 ML 1,000 ML IV SCH ×2 (04:10→13:41)
[2022-06-28 04:12] LABS: Calcium 7.7 mg/dL (8.4-10.2)
[2022-06-28] MEDS ORDERED: SODIUM BICARB 8.4% 50 MEQ/50 ML SYRINGE IV ONE (04:28)
[2022-06-28] MEDS: ONDANSETRON 4 MG/2 ML INJ IV PRN (05:44)
--- NOTE | 2022-06-28 08:10 | Consultation ---
History of Present Illness - Reason for Consult Consult date: 06/28/22 acute renal failure, metabolic acidosis - History of Present Illness The patient is a 52 YO female with history notable for MOrbid Obesity, DM, Hypertension, COPD and decreased mobility who presented to [facility] ED 06/27/22 with complaining of feeling weak for the past 2 days. Patient admits to not taking any of her meds for the past few days. Patient is a poor historian. In the ED she admitted to sob and nausea. She denies any chest pain, fever, chills, headache, dizziness, diaphoresis, vomiting, abdominal pain, diarrhea, dysuria or hematuria. Work-up in the ED; labs notable for Potassium 6.9, Bicarb 7, Sodium 123, BUN 50, Creatinine 2.2, Blood glucose 578. Chest x-ray shows no acute findings. Patient admitted for diabetic ketoacidosis. Nephrology consulted for treatment of STEFFANIE. Past History Past Medical History: COPD, diabetes, hypertension Social history: smoking ( Current Every Day Smoker) Family history: no significant family history Medications and Allergies Allergies Allergy/AdvReac Type Severity Reaction Status Date / Time ciprofloxacin [From Cipro] Allergy Unknown Verified 05/28/22 12:07 Penicillins Allergy Unknown Verified 05/28/22 12:07 Home Medications Medication Instructions Recorded Confirmed Last Taken Type Apixaban [Eliquis] 5 mg PO BID 04/13/21 06/28/22 Unknown History Empagliflozin [Jardiance] 25 mg DAILY 04/13/21 06/28/22 Unknown History Fenofibrate 160 mg PO DAILY 04/13/21 06/28/22 Unknown History Glimepiride 4 mg BID 04/13/21 06/28/22 Unknown History Insulin Aspart (Nf) [NovoLOG 100 unit SQ PRN PRN 04/13/21 06/28/22 Unknown History Flexpen] Levothyroxine [Synthroid] 112 mcg PO QAM 04/13/21 06/28/22 Unknown History Lisinopril/Hydrochlorothiazide 1 tab PO QDAY 04/13/21 06/28/22 Unknown History [Zestoretic 20-12.5 mg] [place] Carbonate 600 mg PO QHS 04/13/21 06/28/22 Unknown History [place] Carbonate [Eskalith] 150 mg PO QAM 04/13/21 06/28/22 Unknown History Lurasidone [Latuda] 40 mg QHS 04/13/21 06/28/22 Unknown History Oxybutynin Chloride [Ditropan Xl] 15 mg PO QDAY 04/13/21 06/28/22 Unknown History Semaglutide [Ozempic] 1 unit SQ 1XW 04/13/21 06/28/22 Unknown History Venlafaxine HCl [Venlafaxine HCl 150 mg DAILY 04/13/21 06/28/22 Unknown History ER] buPROPion SR [Wellbutrin SR] 100 mg PO DAILY 04/13/21 06/28/22 Unknown History Doxycycline Hyclate [Doxycycline 100 mg PO Q12HR 7 Days #14 04/14/21 06/28/22 Unknown Rx Hyclate TAB] Active Meds: Active Medications Acetaminophen (Acetaminophen 325 Mg Tab) 650 mg PO Q6H PRN PRN Reason: Pain MILD(1-3)/Fever >100.5/[place]UR[place]O Dextrose (Dextrose 50% In Water (25gm) 50 Ml Syringe) 0 ml IV Q30MIN PRN; Protocol PRN Reason: Hypoglycemia Insulin Human Regular 100 (units/ Sodium Chloride) 100 mls @ 1 mls/hr IV TITR SHANTHI; Protocol Last Titration: 06/28/22 07:46 Dose: 7 units/hr, 7 mls/hr Potassium Chloride/Dextrose/Sod Cl (D5w/0.45% Nacl/Kcl 20 Meq) 20 meq in 1,000 mls @ 125 mls/hr IV DIRECT SHANTHI Potassium Chloride (Kcl 10meq/100ml) 10 meq in 100 mls @ 100 mls/hr IV Q1H PRN PRN Reason: LOW Potassium Levels Potassium Chloride (Kcl 10meq/100ml) 10 meq in 100 mls @ 100 mls/hr IV Q1H PRN PRN Reason: LOW Potassium Levels Sodium Chloride (Nacl 0.9% 1000 Ml) 1,000 mls @ 150 mls/hr IV DIRECT SHANTHI Last Admin: 06/28/22 04:10 Dose: 150 mls/hr Morphine Sulfate (Morphine 2 Mg/1 Ml Inj) 2 mg IV Q4H PRN PRN Reason: Pain, Moderate (4-6) Morphine Sulfate (Morphine 4 Mg/1 Ml Inj) 4 mg IV Q4H PRN PRN Reason: Pain , Severe (7-10) Ondansetron HCl (Ondansetron 4 Mg/2 Ml Inj) 4 mg IV Q8H PRN PRN Reason: Nausea And Vomiting Last Admin: 06/28/22 05:44 Dose: 4 mg Sodium Chloride (Sodium Chloride 0.9% 10 Ml Flush Syringe) 10 ml IV BID SHANTHI Sodium Chloride (Sodium Chloride 0.9% 10 Ml Flush Syringe) 10 ml IV PRN PRN PRN Reason: LINE FLUSH Review of Systems All systems: negative Exam - Vital Signs Vital signs: Vital Signs Pulse Resp BP Pulse Ox 133 H 35 H 96/68 98 06/27/22 20:07 06/27/22 20:07 06/27/22 20:07 06/27/22 20:07 Results - Lab Results 06/28/22 15:07 06/28/22 20:31 Most recent lab results Calcium 8.0 mg/dL (8.4-10.2) L 06/28/22 05:40 Phosphorus 9.20 mg/dL (2.5-4.5) H 06/28/22 03:35 Magnesium 2.30 mg/dL (1.7-2.3) 06/28/22 03:35 Assessment and Plan 1. Acute kidney injury: Suspect vasomotor STEFFANIE in the setting of DKA/volume depletion. Urine studies and Renal US ordered. Baseline renal function unknown. Monitor renal function. Creatinine leveled off. Avoid nephrotoxic agents. Meds dosage based on GFR. 2. FEN: Hyperkalemia, improving, on Insulin drip. Anion-gap Metabolic acidosis, 2/2 DKA, improving, monitor. Replete lytes as needed. Monitor lytes and volume status. 3. DKA: Admits to stop taking meds for the past few days. On Insulin drip. Per protocol. Monitor. 4. Hypertension: Monitor BP. 5. H/o COPD. Subjective: Patient was seen and examined at the bedside. Nurse at the bedside. Examination: General appearance: well-developed, obese, appears stated age, no distress HEENT: atraumatic, SANDRA, no icterus Neck: trachea midline Respiratory: ctab Heart: S1S2, regular, no murmur Abdomen: soft, obese, bowel sounds heard, NT Integumentary: LE stasis changes noted Neurologic: slowed mentation, conversing, able to move extremities Ext: trace Ext and dependent edema
--- NOTE | 2022-06-28 08:28 | Consultation ---
History of Present Illness Consult date: 06/28/22 Requesting physician: DEMETRIUS LIMON Reason for consult: other (DKA) History of present illness: PCCM CONSULT NOTE (Full dictation # [id number]) Please see dictated notes for full details Past History Past Medical History: COPD, diabetes, hypertension Social history: smoking ( Current Every Day Smoker) Family history: no significant family history Medications and Allergies Allergies Allergy/AdvReac Type Severity Reaction Status Date / Time ciprofloxacin [From Cipro] Allergy Unknown Verified 05/28/22 12:07 Penicillins Allergy Unknown Verified 05/28/22 12:07 Home Medications Medication Instructions Recorded Confirmed Last Taken Type Apixaban [Eliquis] 5 mg PO BID 04/13/21 04/13/21 Unknown History Empagliflozin [Jardiance] 25 mg DAILY 04/13/21 04/13/21 Unknown History Fenofibrate 160 mg PO DAILY 04/13/21 04/13/21 Unknown History Glimepiride 4 mg BID 04/13/21 04/13/21 Unknown History Insulin Aspart (Nf) [NovoLOG 100 unit SQ PRN PRN 04/13/21 04/13/21 Unknown History Flexpen] Levothyroxine [Synthroid] 112 mcg PO QAM 04/13/21 04/13/21 Unknown History Lisinopril/Hydrochlorothiazide 1 tab PO QDAY 04/13/21 04/13/21 Unknown History [Zestoretic 20-12.5 mg] [place] Carbonate 600 mg PO QHS 04/13/21 04/13/21 Unknown History [place] Carbonate [Eskalith] 150 mg PO QAM 04/13/21 04/13/21 Unknown History Lurasidone [Latuda] 40 mg QHS 04/13/21 04/13/21 Unknown History Oxybutynin Chloride [Ditropan Xl] 15 mg PO QDAY 04/13/21 04/13/21 Unknown History Semaglutide [Ozempic] 1 unit SQ 1XW 04/13/21 04/13/21 Unknown History Venlafaxine HCl [Venlafaxine HCl 150 mg DAILY 04/13/21 04/13/21 Unknown History ER] buPROPion SR [Wellbutrin SR] 100 mg PO DAILY 04/13/21 04/13/21 Unknown History Doxycycline Hyclate [Doxycycline 100 mg PO Q12HR 7 Days #14 04/14/21 Unknown Rx Hyclate TAB] Active Meds: Active Medications Acetaminophen (Acetaminophen 325 Mg Tab) 650 mg PO Q6H PRN PRN Reason: Pain MILD(1-3)/Fever >100.5/MURILLO Dextrose (Dextrose 50% In Water (25gm) 50 Ml Syringe) 0 ml IV Q30MIN PRN; Protocol PRN Reason: Hypoglycemia Famotidine (Famotidine 20 Mg/2 Ml Inj) 20 mg IV QDAY SHANTHI Stop: 06/29/22 09:59 Heparin Sodium (Porcine) (Heparin 5,000 Unit/1 Ml Vial) 5,000 unit SUB-Q Q12HR SHANTHI Insulin Human Regular 100 (units/ Sodium Chloride) 100 mls @ 1 mls/hr IV TITR SHANTHI; Protocol Last Titration: 06/28/22 07:46 Dose: 7 units/hr, 7 mls/hr Sodium Chloride (Nacl 0.9% 1000 Ml) 1,000 mls @ 150 mls/hr IV DIRECT SHANTHI Last Admin: 06/28/22 04:10 Dose: 150 mls/hr Sodium Chloride (Nacl 0.9% 1000 Ml) 2,000 mls @ 999 mls/hr IV BOLUS ONE Stop: 06/28/22 10:10 Dextrose/Sodium Chloride (D5/0.45ns) 1,000 mls @ 125 mls/hr IV DIRECT SHANTHI Morphine Sulfate (Morphine 2 Mg/1 Ml Inj) 2 mg IV Q4H PRN PRN Reason: Pain, Moderate (4-6) Ondansetron HCl (Ondansetron 4 Mg/2 Ml Inj) 4 mg IV Q8H PRN PRN Reason: Nausea And Vomiting Last Admin: 06/28/22 05:44 Dose: 4 mg Sodium Chloride (Sodium Chloride 0.9% 10 Ml Flush Syringe) 10 ml IV BID SHANTHI Sodium Chloride (Sodium Chloride 0.9% 10 Ml Flush Syringe) 10 ml IV PRN PRN PRN Reason: LINE FLUSH Physical Examination Vital signs: Vital Signs Pulse Resp BP Pulse Ox 133 H 35 H 96/68 98 06/27/22 20:07 06/27/22 20:07 06/27/22 20:07 06/27/22 20:07 Results - Laboratory Findings CBC and BMP: 06/28/22 14:13 06/28/22 05:40 Abnormal lab findings: Abnormal Labs 06/27/22 06/27/22 06/27/22 20:48 20:48 23:56 WBC 18.7 H Hgb 15.1 H Hct 47.1 H Lymph % (Auto) 6.3 L [place] # (Auto) 0.9 H Seg Neutrophils % 88.6 H Seg Neutrophils # 16.5 H Sodium 123 L 121 L Potassium 6.9 H* 6.4 H* Chloride 82.4 L 79.7 L Carbon Dioxide 7 L* 8 L* BUN 50 H 54 H Creatinine 2.2 H 2.5 H Glucose 578 H* 562 H* POC Glucose Calcium Phosphorus 10.40 H Magnesium 2.70 H 2.60 H AST 50 H Troponin T 0.080 H NT-Pro-B Natriuret Pep 4137 H Albumin 3.1 L Triglycerides 349 H LDL Cholesterol Direct 37 L HDL Cholesterol 38 L 06/28/22 06/28/22 06/28/22 01:45 03:17 03:35 WBC Hgb Hct Lymph % (Auto) [place] # (Auto) Seg Neutrophils % Seg Neutrophils # Sodium 120 L 121 L Potassium 6.2 H* 5.4 H Chloride 79.1 L 84.7 L Carbon Dioxide 7 L* 7 L* BUN 55 H 57 H Creatinine 2.6 H 2.6 H Glucose 551 H* 486 H POC Glucose 568 H Calcium 8.1 L 7.7 L Phosphorus Magnesium AST Troponin T NT-Pro-B Natriuret Pep Albumin Triglycerides LDL Cholesterol Direct HDL Cholesterol 06/28/22 06/28/22 06/28/22 03:35 04:05 05:40 WBC Hgb Hct Lymph % (Auto) [place] # (Auto) Seg Neutrophils % Seg Neutrophils # Sodium 124 L Potassium 5.1 H Chloride 86.5 L Carbon Dioxide 13 L BUN 59 H Creatinine 2.6 H Glucose 396 H POC Glucose 508 H Calcium 8.0 L Phosphorus 9.20 H Magnesium AST Troponin T NT-Pro-B Natriuret Pep Albumin Triglycerides LDL Cholesterol Direct HDL Cholesterol
[2022-06-28] MEDS ORDERED: SODIUM CHLORIDE 0.9% 1000 ML 2,000 ML IV ONE (08:45)
[2022-06-28] MEDS ORDERED: D5W/0.45% NACL 1,000 ML IV SCH (09:00)
[2022-06-28] MEDS ORDERED: HEPARIN 5,000 UNIT/1 ML VIAL SUB-Q SCH (10:00)
[2022-06-28] MEDS ORDERED: FAMOTIDINE 20 MG/2 ML INJ IV SCH (10:00)
--- NOTE | 2022-06-28 11:48 | Progress Note ---
<WILDA MURRAY - Last Filed: 06/29/22 11:14> Assessment and Plan Assessment and plan: This is a 52-year-old female with known past medical history of type 2 diabetes mellitus, hypertension, Nicotine dependence, COPD, PE/DVT was on Eliquis at home, medical noncompliance, and bipolar disorder admitted for DKA and STEFFANIE Hospital Course to Date: 06/28: Mentation improved, denied any abdominal pain, no nausea/vomiting. BG and anio gap still elevated. Continue insulin gtt and IVF resuscitation per protocol. Monitor and replace electrolytes as needed, serial Labs ordered. Transition to subQ once gap is closed. BLE ischemia noted, extremities are purple and cool to touch, palpable pedal pulses appreciated. Patient reported that she has a history of PE/DVT on Eliquis but she admitted that she has not been complaints with any of her medications for 3 days. #Diabetic Ketoacidosis(DKA) #Uncontrolled Type 2 Diabetes Mellitus #Acute Metabolic Encephalopathy #H/O COPD #Tobacco Dependence #Hypertension #Leukocytosis- most likely due to DKA #Acute Kidney Injury(STEFFANIE) most likely Vasomotor Nephropathy #Hyponatremia #Hyperkalemia #BLE Ischemia #History of DVT/PE on Eliquis at Home #Medical Noncompliance #Bipolar Disorder Plan: - Check Hgb A1c - On the DKA protocol- Continue IVF resuscitation and insulin gtt - Transition to subQ once gap is closed. - Nephrology consulted - BLE venous and arterial doppler ordered - Heparin gtt initiated per protocol - Vascular Surgery consulted - Strict intake and output - Avoid nephrotoxic medications; Renally dose medications - Monitor and replace electrolytes as needed, Monitor anion gap, serial Labs ordered. - Continue O2 supplementation and wean as tolerated for SPO2 goal above 92% - Continue blood pressure monitor per protocol, maintain SBP less than 160 - Smoking cessation provided. Patient verbalized understanding and agreed with current information - Resume home medications once list is available - Avoid benzodiazepine to reduce the possibility of delirium - PRN Analgesia for pain control - PRN Antiemetic for nausea vomiting - Maintenance of sleep-wake cycle - Mental Health/Psych Consult - GI/DVT Prophalaxis #Advance Care Planning - Disease education data, care plan, diagnoses, and prognosis were discussed with patient at the bedside. Patient is a FULL code. Patient acknowledged understanding and agreed with current care plan. The high probability of a clinically significant, sudden or life threatening deterioration of the [multiple] system(s) required my full and direct attention, intervention and personal management. The aggregate critical care time was [60] minutes. This time is in addition to time spent performing reported procedures but includes the following: [x] Data Review and interpretation [x] Patient assessment and monitoring of vital signs [x] Documentation [x] Medication orders and management Disposition Plan: ICU Total Time Spent with Patient (Minutes): 60 History Interval history: Patient seen and examined at the bedside. AAO, on 2L NC, c/o BLE pain, but denied any abdominal pain, nausea/vomiting. BLE are discolored and cool to touch , digits are purple, capillary refils are greater than 2secs, BLE palpable pedal pulses appreciated. Remains on DKA protocol, VSS. Hospitalist Physical - Constitutional Vitals: Temp Pulse Resp BP Pulse Ox 98.6 F 74 18 121/59 97 06/28/22 08:37 06/28/22 08:00 06/28/22 08:00 06/28/22 08:00 06/28/22 10:00 General appearance: Present: no acute distress, well-nourished, obese - EENT Eyes: Present: PERRL, EOM intact ENT: hearing intact - Neck Neck: Present: normal ROM - Respiratory Respiratory effort: normal Respiratory: bilateral: diminished - Cardiovascular Rhythm: regular Heart Sounds: Present: S1 & S2 - Extremities Extremities: no ischemia, pulses intact, pulses symmetrical, abnormal (BLE ischemia) Extremity abnormal: edema, cold (BLE ), other (Discolored) - Peripheral Assessment Generalized Edema Type: Non-pitting Edema Degree: 3+ Capillary Refill: > 3 seconds Skin Temperature: Cool Peripheral Pulses: within normal limits - Abdominal General gastrointestinal: soft, non-distended, normal bowel sounds, other (Obese) - Integumentary Integumentary: Present: erythema (BLE, cool to) - Psychiatric Psychiatric: appropriate mood/affect, cooperative - Neurologic Neurologic: moves all extremities - Allied Health Allied health notes reviewed: nursing, case management HEART Score - HEART Score Troponin: Troponin T 0.080 ng/mL (0.00-0.029) H 06/27/22 20:48 Results - Labs CBC & Chem 7: 06/29/22 04:21 06/29/22 04:21 Labs: Laboratory Last Values WBC 18.7 K/mm3 (4.5-11.0) H 06/27/22 20:48 RBC 4.95 M/mm3 (3.65-5.03) 06/27/22 20:48 Hgb 15.1 gm/dl (10.1-14.3) H 06/27/22 20:48 Hct 47.1 % (30.3-42.9) H 06/27/22 20:48 MCV 95 fl (79-97) 06/27/22 20:48 MCH 31 pg (28-32) 06/27/22 20:48 MCHC 32 % (30-34) 06/27/22 20:48 RDW 14.5 % (13.2-15.2) 06/27/22 20:48 Plt Count 213 K/mm3 (140-440) 06/27/22 20:48 Lymph % (Auto) 6.3 % (13.4-35.0) L 06/27/22 20:48 [place] % (Auto) 4.8 % (0.0-7.3) 06/27/22 20:48 Eos % (Auto) 0.0 % (0.0-4.3) 06/27/22 20:48 Baso % (Auto) 0.3 % (0.0-1.8) 06/27/22 20:48 Lymph # (Auto) 1.2 K/mm3 (1.2-5.4) 06/27/22 20:48 [place] # (Auto) 0.9 K/mm3 (0.0-0.8) H 06/27/22 20:48 Eos # (Auto) 0.0 K/mm3 (0.0-0.4) 06/27/22 20:48 Baso # (Auto) 0.1 K/mm3 (0.0-0.1) 06/27/22 20:48 Seg Neutrophils % 88.6 % (40.0-70.0) H 06/27/22 20:48 Seg Neutrophils # 16.5 K/mm3 (1.8-7.7) H 06/27/22 20:48 Sodium 124 mmol/L (137-145) L 06/28/22 05:40 Potassium 5.1 mmol/L (3.6-5.0) H 06/28/22 05:40 Chloride 86.5 mmol/L (98-107) L 06/28/22 05:40 Carbon Dioxide 13 mmol/L (22-30) L 06/28/22 05:40 Anion Gap 30 mmol/L 06/28/22 05:40 BUN 59 mg/dL (7-17) H 06/28/22 05:40 Creatinine 2.6 mg/dL (0.6-1.2) H 06/28/22 05:40 Estimated GFR 19 ml/min 06/28/22 05:40 BUN/Creatinine Ratio 23 % 06/28/22 05:40 Glucose 396 mg/dL (65-100) H 06/28/22 05:40 POC Glucose 508 mg/dL (70-105) H 06/28/22 04:05 Calcium 8.0 mg/dL (8.4-10.2) L 06/28/22 05:40 Phosphorus 9.20 mg/dL (2.5-4.5) H 06/28/22 03:35 Magnesium 2.30 mg/dL (1.7-2.3) 06/28/22 03:35 Total Bilirubin 0.90 mg/dL (0.1-1.2) 06/27/22 20:48 AST 50 units/L (5-40) H 06/27/22 20:48 ALT 28 units/L (7-56) 06/27/22 20:48 Alkaline Phosphatase 97 units/L (35-129) 06/27/22 20:48 Troponin T 0.080 ng/mL (0.00-0.029) H 06/27/22 20:48 NT-Pro-B Natriuret Pep 4137 pg/mL (0-900) H 06/27/22 20:48 Total Protein 7.0 g/dL (6.3-8.2) 06/27/22 20:48 Albumin 3.1 g/dL (3.9-5) L 06/27/22 20:48 Albumin/Globulin Ratio 0.8 % 06/27/22 20:48 Triglycerides 349 mg/dL (2-149) H 06/27/22 20:48 Cholesterol 156 mg/dL (50-199) 06/27/22 20:48 LDL Cholesterol Direct 37 mg/dL (50-130) L 06/27/22 20:48 HDL Cholesterol 38 mg/dL (40-59) L 06/27/22 20:48 Cholesterol/HDL Ratio 4.10 % 06/27/22 20:48 Active Medications - Current Medications Current Medications: Generic Name Dose Route Start Last Admin Trade Name Freq PRN Reason Stop Dose Admin Acetaminophen 650 mg 06/28/22 03:09 Acetaminophen 325 Mg Tab PO Q6H PRN Pain MILD(1-3)/Fever >100.5/MURILLO Dextrose 0 ml 06/27/22 23:24 Dextrose 50% In Water (25gm) 50 Ml Syringe IV Q30MIN PRN Hypoglycemia Protocol Famotidine 20 mg 06/28/22 10:00 06/28/22 09:33 Famotidine 20 Mg/2 Ml Inj IV 06/29/22 09:59 20 mg QDAY SHANTHI Administration Heparin Sodium (Porcine) 5,000 unit 06/28/22 10:00 06/28/22 09:34 Heparin 5,000 Unit/1 Ml Vial SUB-Q 5,000 unit Q12HR SHANTHI Administration Insulin Human Regular 100 100 mls @ 1 mls/hr 06/27/22 23:45 06/28/22 11:43 units/ Sodium Chloride IV 7 units/hr TITR SHANTHI 7 mls/hr Administration Protocol 1 UNITS/HR Sodium Chloride 1,000 mls @ 150 mls/hr 06/28/22 03:15 06/28/22 04:10 Nacl 0.9% 1000 Ml IV 150 mls/hr DIRECT SHANTHI Administration Dextrose/Sodium Chloride 1,000 mls @ 125 mls/hr 06/28/22 09:00 D5/0.45ns IV DIRECT SHANTHI Morphine Sulfate 2 mg 06/28/22 03:09 Morphine 2 Mg/1 Ml Inj IV Q4H PRN Pain, Moderate (4-6) Ondansetron HCl 4 mg 06/28/22 03:09 06/28/22 05:44 Ondansetron 4 Mg/2 Ml Inj IV 4 mg Q8H PRN Administration Nausea And Vomiting Sodium Chloride 10 ml 06/28/22 10:00 06/28/22 09:34 Sodium Chloride 0.9% 10 Ml Flush Syringe IV 10 ml BID SHANTHI Administration Sodium Chloride 10 ml 06/28/22 03:09 Sodium Chloride 0.9% 10 Ml Flush Syringe IV PRN PRN LINE FLUSH <OKEH,MASON E - Last Filed: 06/30/22 07:34> Assessment and Plan Assessment and plan: I saw and evaluated the patient. I agree with the findings and the plan of care as documented in the Nurse Practitioner's~note, with the following corrections and additions. Hospitalist Physical - Constitutional Vitals: Temp Pulse Resp BP Pulse Ox 98.8 F 70 18 159/73 96 06/30/22 04:29 06/30/22 06:00 06/30/22 06:00 06/30/22 06:00 06/30/22 06:00 HEART Score - HEART Score Troponin: Troponin T 0.080 ng/mL (0.00-0.029) H 06/27/22 20:48 Results - Labs CBC & Chem 7: 06/30/22 05:27 06/30/22 05:25 Labs: Laboratory Last Values WBC 8.7 K/mm3 (4.5-11.0) 06/30/22 05:27 RBC 4.58 M/mm3 (3.65-5.03) 06/30/22 05:27 Hgb 13.9 gm/dl (10.1-14.3) 06/30/22 05:27 Hct 42.4 % (30.3-42.9) 06/30/22 05:27 MCV 93 fl (79-97) 06/30/22 05:27 MCH 31 pg (28-32) 06/30/22 05:27 MCHC 33 % (30-34) 06/30/22 05:27 RDW 14.3 % (13.2-15.2) 06/30/22 05:27 Plt Count 172 K/mm3 (140-440) 06/30/22 05:27 Lymph % (Auto) 6.3 % (13.4-35.0) L 06/27/22 20:48 [place] % (Auto) 4.8 % (0.0-7.3) 06/27/22 20:48 Eos % (Auto) 0.0 % (0.0-4.3) 06/27/22 20:48 Baso % (Auto) 0.3 % (0.0-1.8) 06/27/22 20:48 Lymph # (Auto) 1.2 K/mm3 (1.2-5.4) 06/27/22 20:48 [place] # (Auto) 0.9 K/mm3 (0.0-0.8) H 06/27/22 20:48 Eos # (Auto) 0.0 K/mm3 (0.0-0.4) 06/27/22 20:48 Baso # (Auto) 0.1 K/mm3 (0.0-0.1) 06/27/22 20:48 Seg Neutrophils % 88.6 % (40.0-70.0) H 06/27/22 20:48 Seg Neutrophils # 16.5 K/mm3 (1.8-7.7) H 06/27/22 20:48 PT 19.6 Sec. (12.2-14.9) H 06/28/22 15:07 INR 1.47 (0.87-1.13) H 06/28/22 15:07 APTT 30.3 Sec. (24.2-36.6) 06/28/22 15:07 Heparin Anti-Xa Level 0.51 U.I./ml (0.3-0.7) 06/30/22 05:25 Sodium 132 mmol/L (137-145) L 06/30/22 05:25 Potassium 4.0 mmol/L (3.6-5.0) D 06/30/22 05:25 Chloride 99.8 mmol/L (98-107) 06/30/22 05:25 Carbon Dioxide 15 mmol/L (22-30) L 06/30/22 05:25 Anion Gap 21 mmol/L 06/30/22 05:25 BUN 53 mg/dL (7-17) H 06/30/22 05:25 Creatinine 1.7 mg/dL (0.6-1.2) H 06/30/22 05:25 Estimated GFR 32 ml/min 06/30/22 05:25 BUN/Creatinine Ratio 31 % 06/30/22 05:25 Glucose 137 mg/dL (65-100) H 06/30/22 05:25 POC Glucose 150 mg/dL (70-105) H 06/30/22 05:52 Hemoglobin A1c 9.7 % (4-6) H 06/28/22 20:31 Lactic Acid 1.90 mmol/L (0.7-2.0) 06/29/22 10:47 Calcium 8.7 mg/dL (8.4-10.2) 06/30/22 05:25 Phosphorus 4.20 mg/dL (2.5-4.5) 06/30/22 05:25 Magnesium 2.20 mg/dL (1.7-2.3) 06/30/22 05:25 Total Bilirubin 0.90 mg/dL (0.1-1.2) 06/27/22 20:48 AST 50 units/L (5-40) H 06/27/22 20:48 ALT 28 units/L (7-56) 06/27/22 20:48 Alkaline Phosphatase 97 units/L (35-129) 06/27/22 20:48 Troponin T 0.080 ng/mL (0.00-0.029) H 06/27/22 20:48 NT-Pro-B Natriuret Pep 4137 pg/mL (0-900) H 06/27/22 20:48 Total Protein 7.0 g/dL (6.3-8.2) 06/27/22 20:48 Albumin 3.1 g/dL (3.9-5) L 06/27/22 20:48 Albumin/Globulin Ratio 0.8 % 06/27/22 20:48 Triglycerides 349 mg/dL (2-149) H 06/27/22 20:48 Cholesterol 156 mg/dL (50-199) 06/27/22 20:48 LDL Cholesterol Direct 37 mg/dL (50-130) L 06/27/22 20:48 HDL Cholesterol 38 mg/dL (40-59) L 06/27/22 20:48 Cholesterol/HDL Ratio 4.10 % 06/27/22 20:48 Procalcitonin 2.51 ng/mL (<0.15) 06/29/22 10:47 PTH Intact 382.4 pg/mL (15-65) H 06/29/22 04:21 Urine Creatinine 85.4 mg/dL (0.1-20.0) H 06/28/22 08:10 Protein/Creatinin Ratio 0.57 06/28/22 08:10 Urine Sodium 10 mmol/L 06/28/22 08:10 Urine Total Protein 49 mg/dL (5-11.8) H 06/28/22 08:10 Tian/IV: Voiding Method External Female Catheter Active Medications - Current Medications Current Medications: Generic Name Dose Route Start Last Admin Trade Name Freq PRN Reason Stop Dose Admin Acetaminophen 650 mg 06/28/22 03:09 Acetaminophen 325 Mg Tab PO Q6H PRN Pain MILD(1-3)/Fever >100.5/MURILLO Dextrose 0 ml 06/27/22 23:24 Dextrose 50% In Water (25gm) 50 Ml Syringe IV Q30MIN PRN Hypoglycemia Protocol Famotidine 20 mg 06/29/22 10:00 06/29/22 11:47 Famotidine 20 Mg Tab PO Not Given QDAY SHANTHI Heparin Sodium (Porcine) 5,000 unit 06/28/22 14:29 Heparin Prn Bolus(Standard Intensity Drip) 40 unit/kg (5000 unit) IV Q6H PRN For Heparin Anti-Xa < 0.1 Insulin Human Regular 100 100 mls @ 1 mls/hr 06/27/22 23:45 06/30/22 07:25 units/ Sodium Chloride IV 6 units/hr TITR SHANTHI 6 mls/hr Titration Protocol 1 UNITS/HR Heparin Sodium/Sodium Chloride 25,000 unit in 250 mls @ 13.66 mls/hr 06/28/22 15:00 06/30/22 00:31 Heparin/ 0.45% Nacl-25,000 Unit/250 Ml IV 12 units/kg/hr TITR SHANTHI 16.392 mls/hr Administration Protocol 10 UNITS/KG/HR Dextrose/Sodium Chloride 1,000 mls @ 100 mls/hr 06/28/22 17:00 06/30/22 06:43 D5ns IV 100 mls/hr DIRECT SHANTHI Administration Morphine Sulfate 2 mg 06/28/22 03:09 06/28/22 18:06 Morphine 2 Mg/1 Ml Inj IV 2 mg Q4H PRN Administration Pain, Moderate (4-6) Ondansetron HCl 4 mg 06/28/22 03:09 06/28/22 05:44 Ondansetron 4 Mg/2 Ml Inj IV 4 mg Q8H PRN Administration Nausea And Vomiting Sodium Chloride 10 ml 06/28/22 10:00 06/29/22 21:44 Sodium Chloride 0.9% 10 Ml Flush Syringe IV 10 ml BID SHANTHI Administration Sodium Chloride 10 ml 06/28/22 03:09 Sodium Chloride 0.9% 10 Ml Flush Syringe IV PRN PRN LINE FLUSH Nutrition/Malnutrition Assess - Dietary Evaluation Nutrition/Malnutrition Findings: Nutrition Notes Start: 06/28/22 11:39 Freq: Status: Active Protocol: Document 06/28/22 11:39 CHRISTAL (Rec: 06/28/22 11:49 CHRISTAL [id number]) Nutrition Notes Need for Assessment generated from: MD Order,Education Initial or Follow up Assessment Current Diagnosis Acute Kidney Injury,COPD, Diabetes,Hypertension Other Pertinent Diagnosis DKA, Hyperglycemia, SOB, Nausea, Hyperkalemia, Hyponatremia,... Current Diet NPO (since 06/28 03:11). Labs/Tests 06/28: Na 125, K 5.4, Cl 87.6, CO2 18, BUN 58, Crea 2.5, Glu 199, Phos 6.9. Pertinent Medications 06/28: D5/0.45ns @ 125ml/hr, Insulin 4U, others nutritionally unremarkable. Height 5 ft 4 in Weight 136.6 kg [place] Body Weight (kg) 54.54 BMI 51.7 Intake Prior to Admission Good Weight change and time frame Pt denies having loss body weight [employer]. Weight Status Morbidly Obese Subjective/Other Information RD consult for nutrition education and skin risk assessments. Pt is currently on NPO. Pt is on Nasal Cannula, O2 saturation @ 98%, according to Vital Signs notes. Pt still in critical condition , not a candidate for Nutrition Education at the time, will assess feasibility on F/U. Pt presents Bilateral LE redness/echimosis as sign of concern for skin risk at the time, according to Physical Assessment History notes. Percent of energy/protein needs met: Pt is on NPO. When pertinent, start with modified Consistent Carbohydrates -Renal- Diet, which provides for energy/ protein needs (2,061 Kcal/91 g ) during LOS. Burn Absent Trauma Absent GI Symptoms Nausea Food Allergy No Skin Integrity/Comment Bilateral LE redness/echimosis . Minimum of two criteria No Fluid Accumulation N/A Reduced Pre Assembly Wirer Strength N/A (non-severe) Protein-Calorie Malnutrition N\A #1 Nutrition Diagnosis Overweight/obesity Etiology Possibly associated with lifestyle. As Evidenced by Signs and Symptoms BMI: 51.7 Kg/m2. Is patient on ventilator? No Is Patient Ambulatory and/or Out of Bed No REE-([place]-St. Jeor-confined to bed) 2356.548 Kcal/Kg value to use for calculation 11 Approximate Energy Requirements Using 1503 kcal/Kg Calculation Used for Recommendations Kcal/kg Additional Notes Protein: 0.8-1.2 g/Kg AdjBW; 77-115 g/day. Fluids: 1 ml/Kcal, or as per MD. Nutrition Intervention Change Diet Order: When pertinent, start with modified Consistent Carbohydrates -Renal- Diet, advance as tolerated. Goal #1 Adjust the dietary intervention to better serve Pt's energy/protein needs and clinical conditions during LOS . Follow-Up By: 07/02/22 Additional Comments Nutrition education will be provided at F/U, if feasible. When pertinent, start monitoring food tolerance, %PO intake of meals, and BM.
--- NOTE | 2022-06-28 11:51 | Ultrasound Report ---
ULTRASOUND RENAL INDICATION / CLINICAL INFORMATION: STEFFANIE. COMPARISON: None available. FINDINGS: RIGHT KIDNEY: Length = 11.4 cm. - Echogenicity: Mildly echogenic. - Parenchymal Thickness: Normal. Lobulated appearance. - Hydronephrosis: None. - Cyst / Mass: None. - Stones: None seen. LEFT KIDNEY: Length = 12.2 cm. - Echogenicity: Mildly echogenic. - Parenchymal Thickness: Normal. - Hydronephrosis: None. - Cyst / Mass: Simple appearing exophytic upper pole cyst measuring 2.4 cm. - Stones: None seen. URINARY BLADDER: No significant abnormality. FREE FLUID: None. ADDITIONAL FINDINGS: Incidental finding of a simple appearing left adnexal cyst measuring 5.7 x 4.9 x 5.9 cm. IMPRESSION: 1. No acute sonographic abnormality. 2. Increased cortical echogenicity suggests bilateral medical renal disease. 3. Simple-appearing left adnexal cyst measuring 5.9 cm. Scribed by: Lara Cross RDMS, RVT, JAH Scribed: 06/28/2022 10:34 AM I have reviewed the images, agree with this report, and edited this report as needed. Signer Name: Bruce Arredondo MD Signed: 06/28/2022 11:46 AM Workstation Name: [id number]
[2022-06-28 14:21] LABS: Hematocrit 49.4 % (30.3-42.9); Hemoglobin 16.2 gm/dl (10.1-14.3); Mean Corpuscular HGB Conc 33 % (30-34); Mean Corpuscular Volume 93 fl (79-97); Platelet Count 185 K/mm3 (140-440); Red Blood Count 5.33 M/mm3 (3.65-5.03); Red Cell Distribution Width 14.4 % (13.2-15.2)
[2022-06-28] MEDS ORDERED: HEPARIN PRN BOLUS(standard intensity drip) IV (14:29)
[2022-06-28 14:41] LABS: Calcium 8.5 mg/dL (8.4-10.2)
[2022-06-28] MEDS: HEPARIN/ 0.45% NACL DRIP 25,000 UNIT/250 ML BAG IV SCH (14:58)
[2022-06-28 15:52] LABS: Hematocrit 46.8 % (30.3-42.9); Hemoglobin 15.5 gm/dl (10.1-14.3)
[2022-06-28 15:56] LABS: INR 1.47 (0.87-1.13)
[2022-06-28 15:57] LABS: Partial Thromboplastin Time 30.3 Sec. (24.2-36.6)
[2022-06-28 16:01] LABS: Creatinine,Urine 85.4 mg/dL (0.1-20.0)
[2022-06-28 16:13] LABS: Calcium 7.8 mg/dL (8.4-10.2)
--- NOTE | 2022-06-28 16:40 | Consultation ---
History of Present Illness - Reason for Consult Consult date: 06/28/22 Bilateral lower extremity ischemia - History of Present Illness Patient with a history of morbid obesity who presents with a multi day history of feeling weak who presented to the ER and was found to be in DKA. On initial presentation, the patient was felt to be in A. fib, initiated on amiodarone, became hypotensive and given atropine. The patient's bilateral extremities are soft to her ankles with bluish discoloration involving her lower ankles and feet. Patient with palpable dorsalis pedis pulses bilaterally. Per patient, she has a history of IVC filter placement. Past History Past Medical History: COPD, diabetes, DVT, hypertension, PVD Social history: smoking ( Current Every Day Smoker) Family history: no significant family history Medications and Allergies Allergies Allergy/AdvReac Type Severity Reaction Status Date / Time ciprofloxacin [From Cipro] Allergy Unknown Verified 05/28/22 12:07 Penicillins Allergy Unknown Verified 05/28/22 12:07 Home Medications Medication Instructions Recorded Confirmed Last Taken Type Apixaban [Eliquis] 5 mg PO BID 04/13/21 04/13/21 Unknown History Empagliflozin [Jardiance] 25 mg DAILY 04/13/21 04/13/21 Unknown History Fenofibrate 160 mg PO DAILY 04/13/21 04/13/21 Unknown History Glimepiride 4 mg BID 04/13/21 04/13/21 Unknown History Insulin Aspart (Nf) [NovoLOG 100 unit SQ PRN PRN 04/13/21 04/13/21 Unknown History Flexpen] Levothyroxine [Synthroid] 112 mcg PO QAM 04/13/21 04/13/21 Unknown History Lisinopril/Hydrochlorothiazide 1 tab PO QDAY 04/13/21 04/13/21 Unknown History [Zestoretic 20-12.5 mg] [place] Carbonate 600 mg PO QHS 04/13/21 04/13/21 Unknown History [place] Carbonate [Eskalith] 150 mg PO QAM 04/13/21 04/13/21 Unknown History Lurasidone [Latuda] 40 mg QHS 04/13/21 04/13/21 Unknown History Oxybutynin Chloride [Ditropan Xl] 15 mg PO QDAY 04/13/21 04/13/21 Unknown History Semaglutide [Ozempic] 1 unit SQ 1XW 04/13/21 04/13/21 Unknown History Venlafaxine HCl [Venlafaxine HCl 150 mg DAILY 04/13/21 04/13/21 Unknown History ER] buPROPion SR [Wellbutrin SR] 100 mg PO DAILY 04/13/21 04/13/21 Unknown History Doxycycline Hyclate [Doxycycline 100 mg PO Q12HR 7 Days #14 04/14/21 Unknown Rx Hyclate TAB] Active Meds: Active Medications Acetaminophen (Acetaminophen 325 Mg Tab) 650 mg PO Q6H PRN PRN Reason: Pain MILD(1-3)/Fever >100.5/MURILLO Dextrose (Dextrose 50% In Water (25gm) 50 Ml Syringe) 0 ml IV Q30MIN PRN; Protocol PRN Reason: Hypoglycemia Famotidine (Famotidine 20 Mg/2 Ml Inj) 20 mg IV QDAY SHANTHI Stop: 06/29/22 09:59 Last Admin: 06/28/22 09:33 Dose: 20 mg Heparin Sodium (Porcine) (Heparin Prn Bolus(Standard Intensity Drip)) 5,000 unit 40 unit/kg (5000 unit) IV Q6H PRN PRN Reason: For Heparin Anti-Xa < 0.1 Insulin Human Regular 100 (units/ Sodium Chloride) 100 mls @ 1 mls/hr IV TITR SHANTHI; Protocol Last Titration: 06/28/22 15:45 Dose: 6 units/hr, 6 mls/hr Sodium Chloride (Nacl 0.9% 1000 Ml) 1,000 mls @ 150 mls/hr IV DIRECT SHANTHI Last Admin: 06/28/22 13:41 Dose: 150 mls/hr Heparin Sodium/Sodium Chloride (Heparin/ 0.45% Nacl-25,000 Unit/250 Ml) 25,000 unit in 250 mls @ 13.66 mls/hr IV TITR SHANTHI; Protocol Last Admin: 06/28/22 14:58 Dose: 10 units/kg/hr, 13.66 mls/hr Dextrose/Sodium Chloride (D5ns) 1,000 mls @ 100 mls/hr IV DIRECT SHANTHI Morphine Sulfate (Morphine 2 Mg/1 Ml Inj) 2 mg IV Q4H PRN PRN Reason: Pain, Moderate (4-6) Ondansetron HCl (Ondansetron 4 Mg/2 Ml Inj) 4 mg IV Q8H PRN PRN Reason: Nausea And Vomiting Last Admin: 06/28/22 05:44 Dose: 4 mg Sodium Chloride (Sodium Chloride 0.9% 10 Ml Flush Syringe) 10 ml IV BID SHANTHI Last Admin: 06/28/22 09:34 Dose: 10 ml Sodium Chloride (Sodium Chloride 0.9% 10 Ml Flush Syringe) 10 ml IV PRN PRN PRN Reason: LINE FLUSH Review of Systems All systems: negative Exam - Constitutional Vitals: Temp Pulse Resp BP Pulse Ox 98 F 73 26 H 127/76 97 06/28/22 12:00 06/28/22 16:11 06/28/22 16:11 06/28/22 16:11 06/28/22 16:11 General appearance: Present: no acute distress, obese - EENT ENT: hearing intact - Neck Neck: Present: supple, normal ROM - Respiratory Respiratory effort: normal - Extremities Extremities: abnormal (Lower legs and feet are cool) - Abdominal General gastrointestinal: Present: soft, non-tender Female genitourinary: Present: deferred - Rectal Rectal Exam: deferred - Psychiatric Psychiatric: appropriate mood/affect, cooperative Results - Labs CBC & Chem 7: 06/28/22 15:07 06/28/22 15:07 Labs: Abnormal lab results 06/27/22 06/27/22 06/27/22 Range/Units 20:48 20:48 23:56 WBC 18.7 H (4.5-11.0) K/mm3 RBC (3.65-5.03) M/mm3 Hgb 15.1 H (10.1-14.3) gm/dl Hct 47.1 H (30.3-42.9) % Lymph % (Auto) 6.3 L (13.4-35.0) % [place] # (Auto) 0.9 H (0.0-0.8) K/mm3 Seg Neutrophils % 88.6 H (40.0-70.0) % Seg Neutrophils # 16.5 H (1.8-7.7) K/mm3 PT (12.2-14.9) Sec. INR (0.87-1.13) Sodium 123 L 121 L (137-145) mmol/L Potassium 6.9 H* 6.4 H* (3.6-5.0) mmol/L Chloride 82.4 L 79.7 L (98-107) mmol/L Carbon Dioxide 7 L* 8 L* (22-30) mmol/L BUN 50 H 54 H (7-17) mg/dL Creatinine 2.2 H 2.5 H (0.6-1.2) mg/dL Glucose 578 H* 562 H* (65-100) mg/dL POC Glucose (70-105) mg/dL Calcium (8.4-10.2) mg/dL Phosphorus 10.40 H (2.5-4.5) mg/dL Magnesium 2.70 H 2.60 H (1.7-2.3) mg/dL AST 50 H (5-40) units/L Troponin T 0.080 H (0.00-0.029) ng/mL NT-Pro-B Natriuret Pep 4137 H (0-900) pg/mL Albumin 3.1 L (3.9-5) g/dL Triglycerides 349 H (2-149) mg/dL LDL Cholesterol Direct 37 L (50-130) mg/dL HDL Cholesterol 38 L (40-59) mg/dL Urine Creatinine (0.1-20.0) mg/dL 06/28/22 06/28/22 06/28/22 Range/Units 01:45 03:17 03:35 WBC (4.5-11.0) K/mm3 RBC (3.65-5.03) M/mm3 Hgb (10.1-14.3) gm/dl Hct (30.3-42.9) % Lymph % (Auto) (13.4-35.0) % [place] # (Auto) (0.0-0.8) K/mm3 Seg Neutrophils % (40.0-70.0) % Seg Neutrophils # (1.8-7.7) K/mm3 PT (12.2-14.9) Sec. INR (0.87-1.13) Sodium 120 L 121 L (137-145) mmol/L Potassium 6.2 H* 5.4 H (3.6-5.0) mmol/L Chloride 79.1 L 84.7 L (98-107) mmol/L Carbon Dioxide 7 L* 7 L* (22-30) mmol/L BUN 55 H 57 H (7-17) mg/dL Creatinine 2.6 H 2.6 H (0.6-1.2) mg/dL Glucose 551 H* 486 H (65-100) mg/dL POC Glucose 568 H (70-105) mg/dL Calcium 8.1 L 7.7 L (8.4-10.2) mg/dL Phosphorus (2.5-4.5) mg/dL Magnesium (1.7-2.3) mg/dL AST (5-40) units/L Troponin T (0.00-0.029) ng/mL NT-Pro-B Natriuret Pep (0-900) pg/mL Albumin (3.9-5) g/dL Triglycerides (2-149) mg/dL LDL Cholesterol Direct (50-130) mg/dL HDL Cholesterol (40-59) mg/dL Urine Creatinine (0.1-20.0) mg/dL 06/28/22 06/28/22 06/28/22 Range/Units 03:35 04:05 05:13 WBC (4.5-11.0) K/mm3 RBC (3.65-5.03) M/mm3 Hgb (10.1-14.3) gm/dl Hct (30.3-42.9) % Lymph % (Auto) (13.4-35.0) % [place] # (Auto) (0.0-0.8) K/mm3 Seg Neutrophils % (40.0-70.0) % Seg Neutrophils # (1.8-7.7) K/mm3 PT (12.2-14.9) Sec. INR (0.87-1.13) Sodium (137-145) mmol/L Potassium (3.6-5.0) mmol/L Chloride (98-107) mmol/L Carbon Dioxide (22-30) mmol/L BUN (7-17) mg/dL Creatinine (0.6-1.2) mg/dL Glucose (65-100) mg/dL POC Glucose 508 H 443 H (70-105) mg/dL Calcium (8.4-10.2) mg/dL Phosphorus 9.20 H (2.5-4.5) mg/dL Magnesium (1.7-2.3) mg/dL AST (5-40) units/L Troponin T (0.00-0.029) ng/mL NT-Pro-B Natriuret Pep (0-900) pg/mL Albumin (3.9-5) g/dL Triglycerides (2-149) mg/dL LDL Cholesterol Direct (50-130) mg/dL HDL Cholesterol (40-59) mg/dL Urine Creatinine (0.1-20.0) mg/dL 06/28/22 06/28/22 06/28/22 Range/Units 05:40 06:30 07:39 WBC (4.5-11.0) K/mm3 RBC (3.65-5.03) M/mm3 Hgb (10.1-14.3) gm/dl Hct (30.3-42.9) % Lymph % (Auto) (13.4-35.0) % [place] # (Auto) (0.0-0.8) K/mm3 Seg Neutrophils % (40.0-70.0) % Seg Neutrophils # (1.8-7.7) K/mm3 PT (12.2-14.9) Sec. INR (0.87-1.13) Sodium 124 L (137-145) mmol/L Potassium 5.1 H (3.6-5.0) mmol/L Chloride 86.5 L (98-107) mmol/L Carbon Dioxide 13 L (22-30) mmol/L BUN 59 H (7-17) mg/dL Creatinine 2.6 H (0.6-1.2) mg/dL Glucose 396 H (65-100) mg/dL POC Glucose 419 H 377 H (70-105) mg/dL Calcium 8.0 L (8.4-10.2) mg/dL Phosphorus (2.5-4.5) mg/dL Magnesium (1.7-2.3) mg/dL AST (5-40) units/L Troponin T (0.00-0.029) ng/mL NT-Pro-B Natriuret Pep (0-900) pg/mL Albumin (3.9-5) g/dL Triglycerides (2-149) mg/dL LDL Cholesterol Direct (50-130) mg/dL HDL Cholesterol (40-59) mg/dL Urine Creatinine (0.1-20.0) mg/dL 06/28/22 06/28/22 06/28/22 Range/Units 08:10 08:18 09:32 WBC (4.5-11.0) K/mm3 RBC (3.65-5.03) M/mm3 Hgb (10.1-14.3) gm/dl Hct (30.3-42.9) % Lymph % (Auto) (13.4-35.0) % [place] # (Auto) (0.0-0.8) K/mm3 Seg Neutrophils % (40.0-70.0) % Seg Neutrophils # (1.8-7.7) K/mm3 PT (12.2-14.9) Sec. INR (0.87-1.13) Sodium (137-145) mmol/L Potassium (3.6-5.0) mmol/L Chloride (98-107) mmol/L Carbon Dioxide (22-30) mmol/L BUN (7-17) mg/dL Creatinine (0.6-1.2) mg/dL Glucose (65-100) mg/dL POC Glucose 390 H 347 H (70-105) mg/dL Calcium (8.4-10.2) mg/dL Phosphorus (2.5-4.5) mg/dL Magnesium (1.7-2.3) mg/dL AST (5-40) units/L Troponin T (0.00-0.029) ng/mL NT-Pro-B Natriuret Pep (0-900) pg/mL Albumin (3.9-5) g/dL Triglycerides (2-149) mg/dL LDL Cholesterol Direct (50-130) mg/dL HDL Cholesterol (40-59) mg/dL Urine Creatinine 85.4 H (0.1-20.0) mg/dL 06/28/22 06/28/22 06/28/22 Range/Units 10:46 11:40 12:40 WBC (4.5-11.0) K/mm3 RBC (3.65-5.03) M/mm3 Hgb (10.1-14.3) gm/dl Hct (30.3-42.9) % Lymph % (Auto) (13.4-35.0) % [place] # (Auto) (0.0-0.8) K/mm3 Seg Neutrophils % (40.0-70.0) % Seg Neutrophils # (1.8-7.7) K/mm3 PT (12.2-14.9) Sec. INR (0.87-1.13) Sodium (137-145) mmol/L Potassium (3.6-5.0) mmol/L Chloride (98-107) mmol/L Carbon Dioxide (22-30) mmol/L BUN (7-17) mg/dL Creatinine (0.6-1.2) mg/dL Glucose (65-100) mg/dL POC Glucose 313 H 274 H 258 H (70-105) mg/dL Calcium (8.4-10.2) mg/dL Phosphorus (2.5-4.5) mg/dL Magnesium (1.7-2.3) mg/dL AST (5-40) units/L Troponin T (0.00-0.029) ng/mL NT-Pro-B Natriuret Pep (0-900) pg/mL Albumin (3.9-5) g/dL Triglycerides (2-149) mg/dL LDL Cholesterol Direct (50-130) mg/dL HDL Cholesterol (40-59) mg/dL Urine Creatinine (0.1-20.0) mg/dL 06/28/22 06/28/22 06/28/22 Range/Units 13:38 14:13 14:13 WBC 19.7 H (4.5-11.0) K/mm3 RBC 5.33 H (3.65-5.03) M/mm3 Hgb 16.2 H (10.1-14.3) gm/dl Hct 49.4 H (30.3-42.9) % Lymph % (Auto) (13.4-35.0) % [place] # (Auto) (0.0-0.8) K/mm3 Seg Neutrophils % (40.0-70.0) % Seg Neutrophils # (1.8-7.7) K/mm3 PT (12.2-14.9) Sec. INR (0.87-1.13) Sodium 125 L (137-145) mmol/L Potassium 5.4 H (3.6-5.0) mmol/L Chloride 87.6 L (98-107) mmol/L Carbon Dioxide 18 L (22-30) mmol/L BUN 58 H (7-17) mg/dL Creatinine 2.5 H (0.6-1.2) mg/dL Glucose 199 H (65-100) mg/dL POC Glucose 205 H (70-105) mg/dL Calcium (8.4-10.2) mg/dL Phosphorus 6.90 H D (2.5-4.5) mg/dL Magnesium (1.7-2.3) mg/dL AST (5-40) units/L Troponin T (0.00-0.029) ng/mL NT-Pro-B Natriuret Pep (0-900) pg/mL Albumin (3.9-5) g/dL Triglycerides (2-149) mg/dL LDL Cholesterol Direct (50-130) mg/dL HDL Cholesterol (40-59) mg/dL Urine Creatinine (0.1-20.0) mg/dL 06/28/22 06/28/22 06/28/22 Range/Units 14:56 15:07 15:07 WBC (4.5-11.0) K/mm3 RBC (3.65-5.03) M/mm3 Hgb 15.5 H (10.1-14.3) gm/dl Hct 46.8 H (30.3-42.9) % Lymph % (Auto) (13.4-35.0) % [place] # (Auto) (0.0-0.8) K/mm3 Seg Neutrophils % (40.0-70.0) % Seg Neutrophils # (1.8-7.7) K/mm3 PT (12.2-14.9) Sec. INR (0.87-1.13) Sodium 128 L (137-145) mmol/L Potassium 5.3 H (3.6-5.0) mmol/L Chloride 94.0 L (98-107) mmol/L Carbon Dioxide 14 L (22-30) mmol/L BUN 59 H (7-17) mg/dL Creatinine 2.4 H (0.6-1.2) mg/dL Glucose 183 H (65-100) mg/dL POC Glucose 194 H (70-105) mg/dL Calcium 7.8 L (8.4-10.2) mg/dL Phosphorus (2.5-4.5) mg/dL Magnesium (1.7-2.3) mg/dL AST (5-40) units/L Troponin T (0.00-0.029) ng/mL NT-Pro-B Natriuret Pep (0-900) pg/mL Albumin (3.9-5) g/dL Triglycerides (2-149) mg/dL LDL Cholesterol Direct (50-130) mg/dL HDL Cholesterol (40-59) mg/dL Urine Creatinine (0.1-20.0) mg/dL 06/28/22 06/28/22 Range/Units 15:07 15:54 WBC (4.5-11.0) K/mm3 RBC (3.65-5.03) M/mm3 Hgb (10.1-14.3) gm/dl Hct (30.3-42.9) % Lymph % (Auto) (13.4-35.0) % [place] # (Auto) (0.0-0.8) K/mm3 Seg Neutrophils % (40.0-70.0) % Seg Neutrophils # (1.8-7.7) K/mm3 PT 19.6 H (12.2-14.9) Sec. INR 1.47 H (0.87-1.13) Sodium (137-145) mmol/L Potassium (3.6-5.0) mmol/L Chloride (98-107) mmol/L Carbon Dioxide (22-30) mmol/L BUN (7-17) mg/dL Creatinine (0.6-1.2) mg/dL Glucose (65-100) mg/dL POC Glucose 189 H (70-105) mg/dL Calcium (8.4-10.2) mg/dL Phosphorus (2.5-4.5) mg/dL Magnesium (1.7-2.3) mg/dL AST (5-40) units/L Troponin T (0.00-0.029) ng/mL NT-Pro-B Natriuret Pep (0-900) pg/mL Albumin (3.9-5) g/dL Triglycerides (2-149) mg/dL LDL Cholesterol Direct (50-130) mg/dL HDL Cholesterol (40-59) mg/dL Urine Creatinine (0.1-20.0) mg/dL - Imaging and Cardiology Venous US: image reviewed Assessment and Plan Patient has previously presented to outside vascular specialist Dr. Poole with whom she is undergone multiple superficial venous interventions. The patient was noted to have chronic right lower extremity DVT involving her distal femoral veins, popliteal vein and tibial veins. An ultrasound of the patient's bilateral lower extremity venous system was performed and she was noted to have acute DVT involving the external iliac veins bilaterally with thrombus extending distally bilaterally. On examination, the patient's lower legs and feet are cool with bluish discoloration which the patient describes as baseline since she began treatment for her venous disease. The patient does have palpable pedal pulses. Arterial duplex was performed which demonstrates that the patient has adequate arterial inflow. Patient remains in active DKA with an anion gap of 25 at time of examination. She is currently on a heparin drip. The patient's venous issues have progressed involving proximal iliac veins. The patient's legs are soft to the mid calf consistent with venous hypertension with no tenderness to suggest tissue swelling significant enough to cause arterial compromise. The patient may benefit from placement of thrombolytic catheters and or thrombectomy however she is still in active DKA increasing her morbidity and mortality during her procedure. Patient does not appear to be an active phlegmasia. We will reassess as the patient will likely require thrombolytics when she is able to tolerate the procedure.
[2022-06-28] MEDS: D5W/0.9% NACL 1,000 ML IV SCH (16:48)
--- NOTE | 2022-06-28 18:50 | Vascular Lab Report ---
DUPLEX DOPPLER LOWER EXTREMITY VEINS, BILATERAL INDICATION / CLINICAL INFORMATION: R/o DVT. History of IVC filter. On blood thinners. TECHNIQUE: Duplex doppler imaging was performed through the veins of both lower extremities using sergey ous compression and other maneuvers. COMPARISON: None available. FINDINGS: RIGHT COMMON FEMORAL VEIN: Occlusive thrombus extending from the external iliac vein to the common fe moral vein. RIGHT FEMORAL VEIN: Occlusive thrombus. RIGHT POPLITEAL VEIN: Occlusive thrombus. RIGHT CALF VEINS: Occlusive thrombus. LEFT COMMON FEMORAL VEIN: Occlusive thrombus extending from the external iliac vein. LEFT FEMORAL VEIN: Occlusive thrombus. LEFT POPLITEAL VEIN: Occlusive thrombus. LEFT CALF VEINS: Occlusive thrombus. ADDITIONAL FINDINGS: None. IMPRESSION: 1. Extensive occlusive DVT throughout both lower extremities. Signer Name: Marvin Stockton MD Signed: 06/28/2022 6:46 PM Workstation Name: [id number]
--- NOTE | 2022-06-28 18:51 | Vascular Lab Report ---
DUPLEX DOPPLER LOWER EXTREMITY ARTERIAL, BILATERAL INDICATION / CLINICAL INFORMATION: BLE ischemia. TECHNIQUE: Arterial duplex examination of both lower extremities performed using B-mode, color flow a nd spectral Doppler assessment. FINDINGS: RIGHT: - Atherosclerotic Plaque: No significant atherosclerotic plaque. - Elevated Velocity (>200 cm/s): None. - Abnormal Waveform: None. LEFT: - Atherosclerotic Plaque: No significant atherosclerotic plaque. - Elevated Velocity (>200 cm/s): None. - Abnormal Waveform: None. ADDITIONAL FINDINGS: None. Right ASHLEY: Not obtained Left ASHLEY: Not obtained IMPRESSION: 1. No significant lower extremity peripheral artery disease. Ankle-Brachial Index (ASHLEY): - Calcified arteries > 1.4 - Normal = 0.9-1.4 - Mild PAD = 0.7-0.89 - Moderate PAD = 0.51-0.69 - Severe PAD < 0.5 Doppler Waveform: - Triphasic is normal. - Biphasic is abnormal if clear transition from triphasic signal along vascular tree. - Monophasic is abnormal. Signer Name: Marvin Stockton MD Signed: 06/28/2022 6:47 PM Workstation Name: [id number]
[2022-06-29] MEDS: D5W/0.9% NACL 1,000 ML IV SCH ×3 (01:34→21:41)
--- NOTE | 2022-06-29 02:11 | Consultation ---
DATE OF CONSULTATION: 06/28/2022 CONSULTING PHYSICIAN: Dr. Bucio. REASON FOR CONSULTATION: Diabetic ketoacidosis. CHIEF COMPLAINT AND HISTORY OF PRESENT ILLNESS: The patient is a now 52-year-old -[place] female with a past medical history significant amongst other things for a diagnosis of diabetes mellitus, morbid obesity, but also COPD, came into the Emergency Room complaining of shortness of breath and occasional palpitations. She had denied fevers or chills, nausea or vomiting. In the ER, she had complained of some nausea, but no vomiting. She denied any cough or expectoration to me and denied any hemoptysis. She also denied abdominal pain. In the Emergency Room, lab work was drawn. Amongst other things, she was found to have hyperkalemia with a potassium of 6.4 and ultimately diagnosed with diabetic ketoacidosis. She admits to not taking her medications because of nausea, but stated that she did not run out of any medications. ICU admission was requested and offered. When I stopped by to see her, she remained in the intensive care unit on IV insulin drip running at 7 units per hour. At the time I saw her, nausea was feeling a little bit better. Of note, she had some stasis dermatitis type rash to both lower extremities, both shins, but also there were some areas of erythema over there. She denied any open wounds or sores on her body. She did admit to some pain in the lower extremity. She denied any again fevers or chills. With regards to tobacco use/abuse history, she admits to about a 10+ pack year tobacco smoking history. This really is as much of the history of presentation as I have. PAST MEDICAL HISTORY: COPD, diabetes, hypertension, morbid obesity. PAST SURGICAL HISTORY: Unknown. MEDICATIONS: She was on at the time I stopped by to see her according to the medication physician record included the following: Tylenol 650 mg p.o. q. 6 hours p.r.n. mild pain or fevers, she was on a D5 half NS drip at 125 mL per hour per DKA protocol, Pepcid 20 mg IV daily, heparin 5000 units subcutaneous q. 12 hours, insulin drip was going as mentioned above. Morphine sulfate 2 mg IV q. 4 hours p.r.n. moderate pain, Zofran 4 mg IV q. 8 hours p.r.n. nausea and vomiting. ALLERGIES: CIPROFLOXACIN AND PENICILLINS. NATURE OF THIS ALLERGY IS UNKNOWN. DIET: Obese lady, denies acute weight loss or gain in the preceding few weeks to months. FAMILY AND SOCIAL HISTORY: Lives in the community, has a 10+ pack year tobacco smoking history. Denies alcohol or illicit drug use or abuse. She denies any other significant family history. REVIEW OF SYSTEMS: No loss of consciousness. No new onset seizures. No new onset focal weakness. Denies gross hematochezia or melena. Denies gross hematuria or dysuria. Denies hematemesis, denies hemoptysis. Denies heat or cold intolerance. Complete 13-system review of system was obtained. Pertinent positives and/or negatives as in body of history above, otherwise they are noncontributory. PHYSICAL EXAMINATION: VITAL SIGNS: On presentation, she was afebrile, temperature 97.4 degrees Fahrenheit, pulse of 133, respiratory rate of 35, blood pressure 99/68, O2 sats were 98%. Inspired oxygen concentration at that time was not recorded. When I stopped by to see her, she was on 3 liters nasal cannula. GENERAL: She is a middle-aged obese lady. Normocephalic, atraumatic. Talking to me in full sentences, but with mildly increased respiratory effort at rest. HEAD, EYES, EARS, NOSE AND THROAT: Anicteric. No conjunctival erythema. Oropharynx was moist. NECK: No gross jugular venous distention, no thyromegaly. Grossly, there were no palpable lymph nodes in the supraclavicular or submandibular lymph node chains. LUNGS: Auscultation of both lung wang unremarkable apart from diminished bilateral breath sounds, slightly prolonged expiratory phase. No active wheezing. HEART: Sounds 1 and 2 are heard at the time of my evaluation, regular rate and rhythm without overt rubs or murmurs. ABDOMEN: Soft, full, protuberant. Bowel sounds are positive. Mild epigastric tenderness. No palpable hepatosplenomegaly. EXTREMITIES: Without overt digital clubbing or cyanosis. She did have trace bipedal pitting edema. Pedal pulses are 2+ bilaterally. NEUROLOGIC: Pupils were equal, round, about 3 mm, reactive to light. Extraocular muscle movements were intact. She moves all 4 extremities spontaneously. SKIN: Normal turgor. She did have the area of erythema to both shins. Both feet were cold to touch. Pedal pulses were palpable, but weak. No open wounds or sores were ever seen. She did have some changes consistent with chronic stasis dermatitis. Please see the wound care nurses' notes for full description of her skin. PSYCHIATRIC: Mood was normal. Affect was appropriate. She had intact judgment and insight. LABORATORY DATA: From my review, admission white cell count 18,700, hemoglobin 15.1, hematocrit 47.1, platelet count was 213. No manual differential. Serum sodium was 124, potassium 6.4, chloride 78, bicarbonate was 8, BUN 54, creatinine 2.5, glucose 562. Liver function tests: AST was 50, otherwise essentially within normal limits. Troponin was up at 0.08. BNP was up at 4137. LDL cholesterol was 37. No microbiology studies for my review. Chest x-ray essentially showed what appeared to be some elevation of the left hemidiaphragm. No focal infiltrate. Compared to an x-ray from last year March, these changes are the same. There is some suggestion of a large left main pulmonary trunk that may be consistent with pulmonary hypertension. ASSESSMENT: 1. Diabetic ketoacidosis. 2. History of chronic obstructive pulmonary disease. 3. Possible cellulitis. 4. Possible peripheral vascular disease. 5. Acute kidney injury, possibly on chronic. 6. Morbid obesity. 7. History of hypertension. 8. Tobacco use disorder. 9. Leukocytosis. 10. Hyperkalemia. 11. High anion gap metabolic acidosis. 12. Elevated serum BNP. PLAN: We will continue on the DKA protocol. We are going to get venous and arterial Dopplers of lower extremities to evaluate both for peripheral vascular disease, but also deep venous thrombi, especially with her baseline history of morbid obesity and COPD. Tobacco abstinence has been strongly counseled. A procalcitonin level will be ordered. Lactic acid level will be ordered and CRP levels to help guide clinical decision making. I do feel we are dealing with a stress leukocytosis at this point and we will hold on empiric antibiotic therapy. Oxygen will be weaned to keep sats greater than or equal to about 90%. Aspiration precautions will be maintained. In light of her COPD, she will be put on bronchodilator therapy p.r.n. Home medications do not show her on any long-acting bronchodilators. Outpatient evaluation will be done to see if she does need any of that. Of note, she was on doxycycline at home. It is unclear what is that for and the home medication also includes apixaban. I will try and find out further information as to what she might be taking that for. She is appropriately on GI and DVT prophylaxis. Flu and pneumonia vaccination will be addressed per protocol. Thank you very much for the consult. I will follow along and make further recommendations as picture progresses/becomes clearer. She is critically ill on life-sustaining interventions including the IV insulin therapy, at very high risk of from endocrine system decompensation. At this time, I spent about 35-40 minutes of critical care time without overlap and excluding any procedural time that may be necessary. TID: [id number] RECEIPT: [id number] [facility]
[2022-06-29] MEDS: INSULIN REGULAR, HUMAN 100 UNITS in SODIUM CHLORIDE 0.9% 99 ML IV SCH ×2 (04:09→23:25)
[2022-06-29 05:08] LABS: Hematocrit 43.9 % (30.3-42.9); Hemoglobin 14.6 gm/dl (10.1-14.3); Mean Corpuscular HGB Conc 33 % (30-34); Mean Corpuscular Volume 92 fl (79-97); Platelet Count 170 K/mm3 (140-440); Red Blood Count 4.78 M/mm3 (3.65-5.03); Red Cell Distribution Width 14.4 % (13.2-15.2)
--- NOTE | 2022-06-29 08:27 | Progress Note ---
Assessment and Plan 1. Acute kidney injury: Suspect vasomotor STEFFANIE in the setting of DKA/volume depletion. Renal US negative for hydro/stone. Baseline renal function unknown. Monitor renal function. Creatinine leveled off. Avoid nephrotoxic agents. Meds dosage based on GFR. 2. FEN: Hyperkalemia, improving, on Insulin drip. Anion-gap Metabolic acidosis, 2/2 DKA, improving, monitor. Replete lytes as needed. Monitor lytes and volume status. 3. DKA: Admits to stop taking meds at home. On Insulin drip. Per protocol. Monitor. 4. Acute DVT involving the external iliac veins bilaterally with thrombus extending distally bilaterally: Followed by Vascular. 5. Hypertension: Monitor BP. 6. H/o COPD. Subjective: Patient was seen and examined at the bedside. Nurse at the bedside. Examination: General appearance: well-developed, obese, appears stated age, no distress HEENT: atraumatic, SANDRA, no icterus Neck: trachea midline Respiratory: ctab Heart: S1S2, regular, no murmur Abdomen: soft, obese, bowel sounds heard, NT Integumentary: LE stasis changes, toes are dusky in color Neurologic: slowed mentation, conversing, generalized weakness Ext: trace Ext and dependent edema Subjective Date of service: 06/29/22 Objective - Vital Signs Vital signs: Vital Signs - 12hr 06/28/22 06/28/22 06/28/22 20:31 20:41 20:51 Temperature Pulse Rate 81 80 82 Respiratory 20 23 23 Rate Respiratory Rate [Bilateral Leg] Blood Pressure 142/78 142/78 142/78 O2 Sat by Pulse 96 97 95 Oximetry 06/28/22 06/28/22 06/28/22 21:00 21:11 21:21 Temperature Pulse Rate 79 78 78 Respiratory 22 21 22 Rate Respiratory Rate [Bilateral Leg] Blood Pressure 135/66 135/66 135/66 O2 Sat by Pulse 95 97 95 Oximetry 06/28/22 06/28/22 06/28/22 21:30 21:40 21:51 Temperature Pulse Rate 81 83 79 Respiratory 24 24 23 Rate Respiratory Rate [Bilateral Leg] Blood Pressure 135/66 O2 Sat by Pulse 95 97 97 Oximetry 06/28/22 06/28/22 06/28/22 22:00 22:11 22:21 Temperature Pulse Rate 79 79 81 Respiratory 22 23 25 H Rate Respiratory Rate [Bilateral Leg] Blood Pressure 140/75 140/75 140/75 O2 Sat by Pulse 96 96 Oximetry 06/28/22 06/28/22 06/28/22 22:31 22:41 22:50 Temperature Pulse Rate 77 79 80 Respiratory 22 22 24 Rate Respiratory Rate [Bilateral Leg] Blood Pressure 140/75 140/75 140/75 O2 Sat by Pulse 98 97 97 Oximetry 06/28/22 06/28/22 06/28/22 23:00 23:05 23:11 Temperature Pulse Rate 85 82 84 Respiratory 28 H 29 H 29 H Rate Respiratory Rate [Bilateral Leg] Blood Pressure 131/69 131/69 140/75 O2 Sat by Pulse 98 96 96 Oximetry 06/28/22 06/28/22 06/28/22 23:12 23:21 23:26 Temperature Pulse Rate 89 84 80 Respiratory 26 H 29 H Rate Respiratory Rate [Bilateral Leg] Blood Pressure 131/69 140/75 O2 Sat by Pulse 96 97 Oximetry 06/28/22 06/28/22 06/28/22 23:27 23:31 23:41 Temperature Pulse Rate 81 80 78 Respiratory 27 H 19 21 Rate Respiratory Rate [Bilateral Leg] Blood Pressure 140/75 131/69 131/69 O2 Sat by Pulse 96 97 97 Oximetry 06/28/22 06/28/22 06/29/22 23:45 23:51 00:00 Temperature 98.6 F Pulse Rate 84 79 79 Respiratory 16 23 Rate Respiratory 27 H Rate [Bilateral Leg] Blood Pressure 131/69 139/74 O2 Sat by Pulse 97 96 97 Oximetry 06/29/22 06/29/22 06/29/22 00:11 00:21 00:31 Temperature Pulse Rate 80 82 81 Respiratory 22 22 24 Rate Respiratory Rate [Bilateral Leg] Blood Pressure 139/74 139/74 139/74 O2 Sat by Pulse 97 97 97 Oximetry 06/29/22 06/29/22 06/29/22 00:41 00:51 01:00 Temperature Pulse Rate 83 81 82 Respiratory 22 22 22 Rate Respiratory Rate [Bilateral Leg] Blood Pressure 139/74 139/74 135/74 O2 Sat by Pulse 98 98 94 Oximetry 06/29/22 06/29/22 06/29/22 01:11 01:21 01:31 Temperature Pulse Rate 80 81 83 Respiratory 23 23 23 Rate Respiratory Rate [Bilateral Leg] Blood Pressure 135/74 135/74 135/74 O2 Sat by Pulse 98 97 97 Oximetry 06/29/22 06/29/22 06/29/22 01:41 01:48 01:51 Temperature Pulse Rate 85 83 Respiratory 19 24 24 Rate Respiratory Rate [Bilateral Leg] Blood Pressure 135/74 135/74 O2 Sat by Pulse 98 98 98 Oximetry 06/29/22 06/29/22 06/29/22 02:00 02:11 02:21 Temperature Pulse Rate 81 80 82 Respiratory 25 H 23 22 Rate Respiratory Rate [Bilateral Leg] Blood Pressure 146/78 146/78 146/78 O2 Sat by Pulse 97 98 97 Oximetry 06/29/22 06/29/22 06/29/22 02:31 02:41 02:51 Temperature Pulse Rate 86 83 83 Respiratory 22 24 23 Rate Respiratory Rate [Bilateral Leg] Blood Pressure 146/78 146/78 146/78 O2 Sat by Pulse 98 98 96 Oximetry 06/29/22 06/29/22 06/29/22 03:00 03:11 03:21 Temperature Pulse Rate 84 84 86 Respiratory 22 24 34 H Rate Respiratory Rate [Bilateral Leg] Blood Pressure 138/81 138/81 138/81 O2 Sat by Pulse 96 96 Oximetry 06/29/22 06/29/22 06/29/22 03:31 03:41 03:51 Temperature Pulse Rate 79 80 79 Respiratory 22 21 22 Rate Respiratory Rate [Bilateral Leg] Blood Pressure 138/81 138/81 138/81 O2 Sat by Pulse 94 95 96 Oximetry 06/29/22 06/29/22 06/29/22 03:57 04:00 04:11 Temperature Pulse Rate 79 78 79 Respiratory 20 22 Rate Respiratory Rate [Bilateral Leg] Blood Pressure 150/81 150/81 O2 Sat by Pulse 96 96 Oximetry 06/29/22 06/29/22 06/29/22 04:13 04:21 04:31 Temperature 98.0 F Pulse Rate 78 79 Respiratory 24 23 Rate Respiratory Rate [Bilateral Leg] Blood Pressure 150/81 150/81 O2 Sat by Pulse 96 96 Oximetry 06/29/22 06/29/22 06/29/22 04:41 04:51 05:00 Temperature Pulse Rate 78 76 76 Respiratory 23 23 22 Rate Respiratory Rate [Bilateral Leg] Blood Pressure 150/81 150/81 145/88 O2 Sat by Pulse 96 96 95 Oximetry 06/29/22 06/29/22 06/29/22 05:11 05:21 05:31 Temperature Pulse Rate 75 80 77 Respiratory 22 21 18 Rate Respiratory Rate [Bilateral Leg] Blood Pressure 145/88 145/88 145/88 O2 Sat by Pulse 97 97 96 Oximetry 06/29/22 06/29/22 06/29/22 05:36 05:41 05:42 Temperature Pulse Rate 80 77 Respiratory 20 21 Rate Respiratory Rate [Bilateral Leg] Blood Pressure 145/88 O2 Sat by Pulse 97 97 Oximetry 06/29/22 08:24 Temperature Pulse Rate Respiratory Rate Respiratory Rate [Bilateral Leg] Blood Pressure O2 Sat by Pulse 95 Oximetry - Lab 06/30/22 05:27 06/30/22 05:25 Most recent lab results Calcium 8.0 mg/dL (8.4-10.2) L 06/29/22 04:21 Phosphorus 6.40 mg/dL (2.5-4.5) H 06/28/22 20:31 Magnesium 2.20 mg/dL (1.7-2.3) 06/28/22 20:31 Urine Creatinine 85.4 mg/dL (0.1-20.0) H 06/28/22 08:10 Urine Sodium 10 mmol/L 06/28/22 08:10 Medications & Allergies - Medications Allergies/Adverse Reactions: Allergies ciprofloxacin [From Cipro] Allergy (Verified 05/28/22 12:07) Unknown Penicillins Allergy (Verified 05/28/22 12:07) Unknown Home Medications: Home Medications Medication Instructions Recorded Confirmed Last Taken Type Apixaban [Eliquis] 5 mg PO BID 04/13/21 06/28/22 Unknown History Empagliflozin [Jardiance] 25 mg DAILY 04/13/21 06/28/22 Unknown History Fenofibrate 160 mg PO DAILY 04/13/21 06/28/22 Unknown History Glimepiride 4 mg BID 04/13/21 06/28/22 Unknown History Insulin Aspart (Nf) [NovoLOG 100 unit SQ PRN PRN 04/13/21 06/28/22 Unknown History Flexpen] Levothyroxine [Synthroid] 112 mcg PO QAM 04/13/21 06/28/22 Unknown History Lisinopril/Hydrochlorothiazide 1 tab PO QDAY 04/13/21 06/28/22 Unknown History [Zestoretic 20-12.5 mg] [place] Carbonate 600 mg PO QHS 04/13/21 06/28/22 Unknown History [place] Carbonate [Eskalith] 150 mg PO QAM 04/13/21 06/28/22 Unknown History Lurasidone [Latuda] 40 mg QHS 04/13/21 06/28/22 Unknown History Oxybutynin Chloride [Ditropan Xl] 15 mg PO QDAY 04/13/21 06/28/22 Unknown History Semaglutide [Ozempic] 1 unit SQ 1XW 04/13/21 06/28/22 Unknown History Venlafaxine HCl [Venlafaxine HCl 150 mg DAILY 04/13/21 06/28/22 Unknown History ER] buPROPion SR [Wellbutrin SR] 100 mg PO DAILY 04/13/21 06/28/22 Unknown History Doxycycline Hyclate [Doxycycline 100 mg PO Q12HR 7 Days #14 04/14/21 06/28/22 Unknown Rx Hyclate TAB] Active Medications: Generic Name Dose Route Start Last Admin Trade Name Freq PRN Reason Stop Dose Admin Acetaminophen 650 mg 06/28/22 03:09 Acetaminophen 325 Mg Tab PO Q6H PRN Pain MILD(1-3)/Fever >100.5/MURILLO Dextrose 0 ml 06/27/22 23:24 Dextrose 50% In Water (25gm) 50 Ml Syringe IV Q30MIN PRN Hypoglycemia Protocol Famotidine 20 mg 06/28/22 10:00 06/28/22 09:33 Famotidine 20 Mg/2 Ml Inj IV 06/29/22 09:59 20 mg QDAY SHANTHI Administration Famotidine 20 mg 06/29/22 10:00 Famotidine 20 Mg Tab PO QDAY SHANTHI Heparin Sodium (Porcine) 5,000 unit 06/28/22 14:29 Heparin Prn Bolus(Standard Intensity Drip) 40 unit/kg (5000 unit) IV Q6H PRN For Heparin Anti-Xa < 0.1 Insulin Human Regular 100 100 mls @ 1 mls/hr 06/27/22 23:45 06/29/22 07:33 units/ Sodium Chloride IV 4 units/hr TITR SHANTHI 4 mls/hr Titration Protocol 1 UNITS/HR Heparin Sodium/Sodium Chloride 25,000 unit in 250 mls @ 13.66 mls/hr 06/28/22 15:00 06/29/22 05:56 Heparin/ 0.45% Nacl-25,000 Unit/250 Ml IV 11 units/kg/hr TITR SHANTHI 15.026 mls/hr Titration Protocol 10 UNITS/KG/HR Dextrose/Sodium Chloride 1,000 mls @ 100 mls/hr 06/28/22 17:00 06/29/22 01:34 D5ns IV 100 mls/hr DIRECT SHANTHI Administration Morphine Sulfate 2 mg 06/28/22 03:09 06/28/22 18:06 Morphine 2 Mg/1 Ml Inj IV 2 mg Q4H PRN Administration Pain, Moderate (4-6) Ondansetron HCl 4 mg 06/28/22 03:09 06/28/22 05:44 Ondansetron 4 Mg/2 Ml Inj IV 4 mg Q8H PRN Administration Nausea And Vomiting Sodium Bicarbonate 50 meq 06/29/22 09:00 Sodium Bicarb 8.4% 50 Meq/50 Ml Syringe IV 06/29/22 12:00 ONCE SHANTHI Sodium Chloride 10 ml 06/28/22 10:00 06/28/22 21:25 Sodium Chloride 0.9% 10 Ml Flush Syringe IV 10 ml BID SHANTHI Administration Sodium Chloride 10 ml 06/28/22 03:09 Sodium Chloride 0.9% 10 Ml Flush Syringe IV PRN PRN LINE FLUSH
--- NOTE | 2022-06-29 08:37 | Progress Note ---
Assessment and Plan Diabetic ketoacidosis Hyperkalemia COPD Possible JACKLYN / OHS Possible cellulitis Possible peripheral vascular disease STEFFANIE Morbid obesity HTN Tobacco use disorder Leukocytosis High anion gap metabolic acidosis Elevated serum BNP - follow Procalcitonin and Lactate levels - follow clinically off AB's - continue DKA protocol & IV insulin therapy - continue IV Heparin - vascular surgery evaluation ongoing - continue to avoid nephrotoxins, renally dose all medications - continue BIPAP qhs with prn daytime use - continue to wean supplemental oxygen for target O2 sat's > 90% acutely - aspiration precautions - prn bronchodilators (YESSI) with pulmonary hygiene per RT - AB's per ID rec's - prn analgesia per CPOT score - Maintenance of sleep-wake cycle, avoid delirium - tobacco abstinence strongly counseled - G.I. & VTE prophylaxis - PT/OT/ROM exercises - mobility protocols for pressure ulcer prophylaxis - Monitor hemodynamics closely - continue other care per attending / other consultants - discharge planning ongoing concurrently .... Re-evaluate in am & prn CONDITION: CRITICAL PROGNOSIS: GUARDED CODE STATUS: FULL CODE The high probability of a clinically significant, sudden or life-threatening deterioration of the [respiratory, cardiovascular, hematologic & renal] system(s) required my full and direct attention, intervention and personal management. The aggregate critical care time was [34] minutes without overlap. Time includes spent on; [x] Data Review and interpretation [x] Patient assessment and monitoring of vital signs [x] Documentation [x] Medication orders and management Subjective Date of service: 06/29/22 Principal diagnosis: AHRF; DKA; Hyperkalemia; COPD; ? cellulitis; PVD; STEFFANIE; Mo rbid obesity; ?JACKLYN Interval history: Patient is seen today for: Acute hypoxemic respiratory failure; DKA; Hyperkalemia; COPD; Possible cellulitis; PVD; STEFFANIE; Morbid obesity Seen and examined at bedside; 24hour events reviewed; nursing and respiratory care staff consulted; no adverse overnight events reported to me; resting peacefully in bed; remains on IV Heparin and no gross bleeding; dopplers reveal;ed extensive DVT; remains on IV insulin drip Objective Vital Signs - 12hr 06/28/22 06/28/22 06/28/22 20:41 20:51 21:00 Temperature Pulse Rate 80 82 79 Respiratory 23 23 22 Rate Respiratory Rate [Bilateral Leg] Blood Pressure 142/78 142/78 135/66 O2 Sat by Pulse 97 95 95 Oximetry 06/28/22 06/28/22 06/28/22 21:11 21:21 21:30 Temperature Pulse Rate 78 78 81 Respiratory 21 22 24 Rate Respiratory Rate [Bilateral Leg] Blood Pressure 135/66 135/66 135/66 O2 Sat by Pulse 97 95 95 Oximetry 06/28/22 06/28/22 06/28/22 21:40 21:51 22:00 Temperature Pulse Rate 83 79 79 Respiratory 24 23 22 Rate Respiratory Rate [Bilateral Leg] Blood Pressure 140/75 O2 Sat by Pulse 97 97 Oximetry 06/28/22 06/28/22 06/28/22 22:11 22:21 22:31 Temperature Pulse Rate 79 81 77 Respiratory 23 25 H 22 Rate Respiratory Rate [Bilateral Leg] Blood Pressure 140/75 140/75 140/75 O2 Sat by Pulse 96 96 98 Oximetry 06/28/22 06/28/22 06/28/22 22:41 22:50 23:00 Temperature Pulse Rate 79 80 85 Respiratory 22 24 28 H Rate Respiratory Rate [Bilateral Leg] Blood Pressure 140/75 140/75 131/69 O2 Sat by Pulse 97 97 98 Oximetry 06/28/22 06/28/22 06/28/22 23:05 23:11 23:12 Temperature Pulse Rate 82 84 89 Respiratory 29 H 29 H 26 H Rate Respiratory Rate [Bilateral Leg] Blood Pressure 131/69 140/75 131/69 O2 Sat by Pulse 96 96 96 Oximetry 06/28/22 06/28/22 06/28/22 23:21 23:26 23:27 Temperature Pulse Rate 84 80 81 Respiratory 29 H 27 H Rate Respiratory Rate [Bilateral Leg] Blood Pressure 140/75 140/75 O2 Sat by Pulse 97 96 Oximetry 06/28/22 06/28/22 06/28/22 23:31 23:41 23:45 Temperature Pulse Rate 80 78 84 Respiratory 19 21 Rate Respiratory 27 H Rate [Bilateral Leg] Blood Pressure 131/69 131/69 O2 Sat by Pulse 97 97 97 Oximetry 06/28/22 06/29/22 06/29/22 23:51 00:00 00:11 Temperature 98.6 F Pulse Rate 79 79 80 Respiratory 16 23 22 Rate Respiratory Rate [Bilateral Leg] Blood Pressure 131/69 139/74 139/74 O2 Sat by Pulse 96 97 97 Oximetry 06/29/22 06/29/22 06/29/22 00:21 00:31 00:41 Temperature Pulse Rate 82 81 83 Respiratory 22 24 22 Rate Respiratory Rate [Bilateral Leg] Blood Pressure 139/74 139/74 139/74 O2 Sat by Pulse 97 97 98 Oximetry 06/29/22 06/29/22 06/29/22 00:51 01:00 01:11 Temperature Pulse Rate 81 82 80 Respiratory 22 22 23 Rate Respiratory Rate [Bilateral Leg] Blood Pressure 139/74 135/74 135/74 O2 Sat by Pulse 98 94 98 Oximetry 06/29/22 06/29/22 06/29/22 01:21 01:31 01:41 Temperature Pulse Rate 81 83 85 Respiratory 23 23 19 Rate Respiratory Rate [Bilateral Leg] Blood Pressure 135/74 135/74 135/74 O2 Sat by Pulse 97 97 98 Oximetry 06/29/22 06/29/22 06/29/22 01:48 01:51 02:00 Temperature Pulse Rate 83 81 Respiratory 24 24 25 H Rate Respiratory Rate [Bilateral Leg] Blood Pressure 135/74 146/78 O2 Sat by Pulse 98 98 97 Oximetry 06/29/22 06/29/22 06/29/22 02:11 02:21 02:31 Temperature Pulse Rate 80 82 86 Respiratory 23 22 22 Rate Respiratory Rate [Bilateral Leg] Blood Pressure 146/78 146/78 146/78 O2 Sat by Pulse 98 97 98 Oximetry 06/29/22 06/29/22 06/29/22 02:41 02:51 03:00 Temperature Pulse Rate 83 83 84 Respiratory 24 23 22 Rate Respiratory Rate [Bilateral Leg] Blood Pressure 146/78 146/78 138/81 O2 Sat by Pulse 98 96 Oximetry 06/29/22 06/29/22 06/29/22 03:11 03:21 03:31 Temperature Pulse Rate 84 86 79 Respiratory 24 34 H 22 Rate Respiratory Rate [Bilateral Leg] Blood Pressure 138/81 138/81 138/81 O2 Sat by Pulse 96 96 94 Oximetry 06/29/22 06/29/22 06/29/22 03:41 03:51 03:57 Temperature Pulse Rate 80 79 79 Respiratory 21 22 Rate Respiratory Rate [Bilateral Leg] Blood Pressure 138/81 138/81 O2 Sat by Pulse 95 96 Oximetry 06/29/22 06/29/22 06/29/22 04:00 04:11 04:13 Temperature 98.0 F Pulse Rate 78 79 Respiratory 20 22 Rate Respiratory Rate [Bilateral Leg] Blood Pressure 150/81 150/81 O2 Sat by Pulse 96 96 Oximetry 06/29/22 06/29/22 06/29/22 04:21 04:31 04:41 Temperature Pulse Rate 78 79 78 Respiratory 24 23 23 Rate Respiratory Rate [Bilateral Leg] Blood Pressure 150/81 150/81 150/81 O2 Sat by Pulse 96 96 96 Oximetry 06/29/22 06/29/22 06/29/22 04:51 05:00 05:11 Temperature Pulse Rate 76 76 75 Respiratory 23 22 22 Rate Respiratory Rate [Bilateral Leg] Blood Pressure 150/81 145/88 145/88 O2 Sat by Pulse 96 95 97 Oximetry 06/29/22 06/29/22 06/29/22 05:21 05:31 05:36 Temperature Pulse Rate 80 77 Respiratory 21 18 20 Rate Respiratory Rate [Bilateral Leg] Blood Pressure 145/88 145/88 O2 Sat by Pulse 97 96 97 Oximetry 06/29/22 06/29/22 06/29/22 05:41 05:42 08:24 Temperature Pulse Rate 80 77 Respiratory 21 Rate Respiratory Rate [Bilateral Leg] Blood Pressure 145/88 O2 Sat by Pulse 97 95 Oximetry Constitutional: no acute distress Eyes: non-icteric ENT: oropharynx moist Neck: supple, no lymphadenopathy, no JVD, other (large circumference) Effort: mildly labored Ascultation: Bilateral: clear Percussion: Bilateral: not dull Cardiovascular: regular rate and rhythm Gastrointestinal: normoactive bowel sounds, non-tender, tender, non-distended Integumentary: rash (shins), other (erythema to shins) Extremities: no cyanosis, pink and warm, no ischemia or petechiae, edema (trace to 1+) Neurologic: normal mental status, non-focal exam (grossly), pupils equal and round, motor strength normal and Psychiatric: mood appropriate, affect normal CBC and BMP: 07/02/22 08:12 07/02/22 08:12 ABG, PT/INR, D-dimer: PT/INR, D-dimer PT 19.6 Sec. (12.2-14.9) H 06/28/22 15:07 INR 1.47 (0.87-1.13) H 06/28/22 15:07 Abnormal lab findings: Abnormal Labs 06/27/22 06/27/22 06/27/22 20:48 20:48 23:56 WBC 18.7 H RBC Hgb 15.1 H Hct 47.1 H Lymph % (Auto) 6.3 L Person # (Auto) 0.9 H Seg Neutrophils % 88.6 H Seg Neutrophils # 16.5 H PT INR Heparin Anti-Xa Level Sodium 123 L 121 L Potassium 6.9 H* 6.4 H* Chloride 82.4 L 79.7 L Carbon Dioxide 7 L* 8 L* BUN 50 H 54 H Creatinine 2.2 H 2.5 H Glucose 578 H* 562 H* POC Glucose Hemoglobin A1c Calcium Phosphorus 10.40 H Magnesium 2.70 H 2.60 H AST 50 H Troponin T 0.080 H NT-Pro-B Natriuret Pep 4137 H Albumin 3.1 L Triglycerides 349 H LDL Cholesterol Direct 37 L HDL Cholesterol 38 L PTH Intact Urine Creatinine 06/28/22 06/28/22 06/28/22 01:45 03:17 03:35 WBC RBC Hgb Hct Lymph % (Auto) Person # (Auto) Seg Neutrophils % Seg Neutrophils # PT INR Heparin Anti-Xa Level Sodium 120 L 121 L Potassium 6.2 H* 5.4 H Chloride 79.1 L 84.7 L Carbon Dioxide 7 L* 7 L* BUN 55 H 57 H Creatinine 2.6 H 2.6 H Glucose 551 H* 486 H POC Glucose 568 H Hemoglobin A1c Calcium 8.1 L 7.7 L Phosphorus Magnesium AST Troponin T NT-Pro-B Natriuret Pep Albumin Triglycerides LDL Cholesterol Direct HDL Cholesterol PTH Intact Urine Creatinine 06/28/22 06/28/22 06/28/22 03:35 04:05 05:13 WBC RBC Hgb Hct Lymph % (Auto) Person # (Auto) Seg Neutrophils % Seg Neutrophils # PT INR Heparin Anti-Xa Level Sodium Potassium Chloride Carbon Dioxide BUN Creatinine Glucose POC Glucose 508 H 443 H Hemoglobin A1c Calcium Phosphorus 9.20 H Magnesium AST Troponin T NT-Pro-B Natriuret Pep Albumin Triglycerides LDL Cholesterol Direct HDL Cholesterol PTH Intact Urine Creatinine 06/28/22 06/28/22 06/28/22 05:40 06:30 07:39 WBC RBC Hgb Hct Lymph % (Auto) Person # (Auto) Seg Neutrophils % Seg Neutrophils # PT INR Heparin Anti-Xa Level Sodium 124 L Potassium 5.1 H Chloride 86.5 L Carbon Dioxide 13 L BUN 59 H Creatinine 2.6 H Glucose 396 H POC Glucose 419 H 377 H Hemoglobin A1c Calcium 8.0 L Phosphorus Magnesium AST Troponin T NT-Pro-B Natriuret Pep Albumin Triglycerides LDL Cholesterol Direct HDL Cholesterol PTH Intact Urine Creatinine 06/28/22 06/28/22 06/28/22 08:10 08:18 09:32 WBC RBC Hgb Hct Lymph % (Auto) Person # (Auto) Seg Neutrophils % Seg Neutrophils # PT INR Heparin Anti-Xa Level Sodium Potassium Chloride Carbon Dioxide BUN Creatinine Glucose POC Glucose 390 H 347 H Hemoglobin A1c Calcium Phosphorus Magnesium AST Troponin T NT-Pro-B Natriuret Pep Albumin Triglycerides LDL Cholesterol Direct HDL Cholesterol PTH Intact Urine Creatinine 85.4 H 06/28/22 06/28/22 06/28/22 10:46 11:40 12:40 WBC RBC Hgb Hct Lymph % (Auto) Person # (Auto) Seg Neutrophils % Seg Neutrophils # PT INR Heparin Anti-Xa Level Sodium Potassium Chloride Carbon Dioxide BUN Creatinine Glucose POC Glucose 313 H 274 H 258 H Hemoglobin A1c Calcium Phosphorus Magnesium AST Troponin T NT-Pro-B Natriuret Pep Albumin Triglycerides LDL Cholesterol Direct HDL Cholesterol PTH Intact Urine Creatinine 06/28/22 06/28/22 06/28/22 13:38 14:13 14:13 WBC 19.7 H RBC 5.33 H Hgb 16.2 H Hct 49.4 H Lymph % (Auto) Person # (Auto) Seg Neutrophils % Seg Neutrophils # PT INR Heparin Anti-Xa Level Sodium 125 L Potassium 5.4 H Chloride 87.6 L Carbon Dioxide 18 L BUN 58 H Creatinine 2.5 H Glucose 199 H POC Glucose 205 H Hemoglobin A1c Calcium Phosphorus 6.90 H D Magnesium AST Troponin T NT-Pro-B Natriuret Pep Albumin Triglycerides LDL Cholesterol Direct HDL Cholesterol PTH Intact Urine Creatinine 06/28/22 06/28/22 06/28/22 14:56 15:07 15:07 WBC RBC Hgb 15.5 H Hct 46.8 H Lymph % (Auto) Person # (Auto) Seg Neutrophils % Seg Neutrophils # PT INR Heparin Anti-Xa Level Sodium 128 L Potassium 5.3 H Chloride 94.0 L Carbon Dioxide 14 L BUN 59 H Creatinine 2.4 H Glucose 183 H POC Glucose 194 H Hemoglobin A1c Calcium 7.8 L Phosphorus Magnesium AST Troponin T NT-Pro-B Natriuret Pep Albumin Triglycerides LDL Cholesterol Direct HDL Cholesterol PTH Intact Urine Creatinine 06/28/22 06/28/22 06/28/22 15:07 15:54 17:10 WBC RBC Hgb Hct Lymph % (Auto) Person # (Auto) Seg Neutrophils % Seg Neutrophils # PT 19.6 H INR 1.47 H Heparin Anti-Xa Level Sodium Potassium Chloride Carbon Dioxide BUN Creatinine Glucose POC Glucose 189 H 216 H Hemoglobin A1c Calcium Phosphorus Magnesium AST Troponin T NT-Pro-B Natriuret Pep Albumin Triglycerides LDL Cholesterol Direct HDL Cholesterol PTH Intact Urine Creatinine 06/28/22 06/28/22 06/28/22 17:59 18:54 19:49 WBC RBC Hgb Hct Lymph % (Auto) Person # (Auto) Seg Neutrophils % Seg Neutrophils # PT INR Heparin Anti-Xa Level Sodium Potassium Chloride Carbon Dioxide BUN Creatinine Glucose POC Glucose 195 H 178 H 166 H Hemoglobin A1c Calcium Phosphorus Magnesium AST Troponin T NT-Pro-B Natriuret Pep Albumin Triglycerides LDL Cholesterol Direct HDL Cholesterol PTH Intact Urine Creatinine 06/28/22 06/28/22 06/28/22 20:31 20:31 20:31 WBC RBC Hgb Hct Lymph % (Auto) Person # (Auto) Seg Neutrophils % Seg Neutrophils # PT INR Heparin Anti-Xa Level 0.19 L Sodium 129 L Potassium 5.1 H Chloride 95.6 L Carbon Dioxide 15 L BUN 59 H Creatinine 2.4 H Glucose 145 H POC Glucose Hemoglobin A1c 9.7 H Calcium 8.0 L Phosphorus 6.40 H Magnesium AST Troponin T NT-Pro-B Natriuret Pep Albumin Triglycerides LDL Cholesterol Direct HDL Cholesterol PTH Intact Urine Creatinine 06/28/22 06/28/22 06/29/22 21:27 22:22 04:21 WBC 17.1 H RBC Hgb 14.6 H Hct 43.9 H Lymph % (Auto) Person # (Auto) Seg Neutrophils % Seg Neutrophils # PT INR Heparin Anti-Xa Level Sodium Potassium Chloride Carbon Dioxide BUN Creatinine Glucose POC Glucose 131 H 148 H Hemoglobin A1c Calcium Phosphorus Magnesium AST Troponin T NT-Pro-B Natriuret Pep Albumin Triglycerides LDL Cholesterol Direct HDL Cholesterol PTH Intact Urine Creatinine 06/29/22 06/29/22 04:21 04:21 WBC RBC Hgb Hct Lymph % (Auto) Person # (Auto) Seg Neutrophils % Seg Neutrophils # PT INR Heparin Anti-Xa Level Sodium 129 L Potassium Chloride 97.6 L Carbon Dioxide 15 L BUN 59 H Creatinine 2.1 H Glucose 140 H POC Glucose Hemoglobin A1c Calcium 8.0 L Phosphorus Magnesium AST Troponin T NT-Pro-B Natriuret Pep Albumin Triglycerides LDL Cholesterol Direct HDL Cholesterol PTH Intact 382.4 H Urine Creatinine Prior PFT's, U/S of legs: other (extensive bilateral DVT's) Allied health notes reviewed: nursing
[2022-06-29] MEDS ORDERED: SODIUM BICARB 8.4% 50 MEQ/50 ML SYRINGE IV SCH (09:00)
[2022-06-29] MEDS: HEPARIN/ 0.45% NACL DRIP 25,000 UNIT/250 ML BAG IV SCH (09:06)
--- NOTE | 2022-06-29 11:15 | Progress Note ---
<WILDA MURRAY - Last Filed: 06/29/22 18:10> Assessment and Plan Assessment and plan: This is a 52-year-old female with known past medical history of type 2 diabetes mellitus, hypertension, Nicotine dependence, COPD, PE/DVT was on Eliquis at home, medical noncompliance, and bipolar disorder admitted for DKA and STEFFANIE Hospital Course to Date: 06/28: Mentation improved, denied any abdominal pain, no nausea/vomiting. BG and anio gap still elevated. Continue insulin gtt and IVF resuscitation per protocol. Monitor and replace electrolytes as needed, serial Labs ordered. Transition to subQ once gap is closed. BLE ischemia noted, extremities are purple and cool to touch, palpable pedal pulses appreciated. Patient reported that she has a history of PE/DVT on Eliquis but she admitted that she has not been complaints with any of her medications for 3 days. 06/29: Anion Gap still greater than 20, and CO2 15 this am. 1amp of bcarb given, continue Insulin gtt and IVF resuscitation per protocol. repeat BMP ordered, will transition to subQ once gap is closed. BLE doppler noted with extensive BLE DVT, patient remains on the heparin gtt. Patient reported she was on PO Eliquis at home and had a IVF filter placed. Vascular Surgery is also following, appreciate recommendations. Hyponatremia improving, appreciate Nephrology's recs. #Diabetic Ketoacidosis(DKA) #Uncontrolled Type 2 Diabetes Mellitus #Acute Metabolic Encephalopathy #H/O COPD #Tobacco Dependence #Hypertension #Leukocytosis- most likely due to DKA #Acute Kidney Injury(STEFFANIE) most likely Vasomotor Nephropathy #Hyponatremia #Hyperkalemia #BLE Ischemia #Current Extensive DVT in BLE- on Heparin gtt per protocol #History of DVT/PE on Eliquis at Home- S/p IVC Filter #Medical Noncompliance #Bipolar Disorder Plan: - On the DKA protocol- Continue IVF resuscitation and insulin gtt - Transition to subQ once gap is closed. - Nephrology consulted, appreciate recommendations - Heparin gtt initiated per protocol - Vascular Surgery consulted, appreciate recommendations - Strict intake and output - Avoid nephrotoxic medications; Renally dose medications - Monitor and replace electrolytes as needed, Monitor anion gap, serial Labs ordered. - Continue O2 supplementation and wean as tolerated for SPO2 goal above 92% - Continue blood pressure monitor per protocol, maintain SBP less than 160 - Smoking cessation provided. Patient verbalized understanding and agreed with current information - Resume home medications once list is available - Avoid benzodiazepine to reduce the possibility of delirium - PRN Analgesia for pain control - PRN Antiemetic for nausea vomiting - Maintenance of sleep-wake cycle - Mental Health/Psych Consult - GI/DVT Prophylaxis #Advance Care Planning - Disease education data, care plan, diagnoses, and prognosis were discussed with patient at the bedside. Patient is a FULL code. Patient acknowledged understanding and agreed with current care plan. The high probability of a clinically significant, sudden or life threatening deterioration of the [multiple] system(s) required my full and direct attention, intervention and personal management. The aggregate critical care time was [60] minutes. This time is in addition to time spent performing reported procedures but includes the following: [x] Data Review and interpretation [x] Patient assessment and monitoring of vital signs [x] Documentation [x] Medication orders and management Disposition Plan: ICU Total Time Spent with Patient (Minutes): 60 History Interval history: Patient seen and examined at the bedside. Fully AAO this am, on RA. OOB to the chair, no distress noted. BLE ischemia is unchanged with palpable pedal pulses. Remains on the DKA protocol, VSS. Hospitalist Physical - Physical exam Narrative exam: General appearance: Present: no acute distress, well-nourished, obese - EENT Eyes: Present: PERRL, EOM intact ENT: hearing intact - Neck Neck: Present: normal ROM - Respiratory Respiratory effort: normal Respiratory: bilateral: diminished - Cardiovascular Rhythm: regular Heart Sounds: Present: S1 & S2 - Extremities Extremities: no ischemia, pulses intact, pulses symmetrical, abnormal (BLE ischemia) Extremity abnormal: edema, cold (BLE ), other (Discolored) - Peripheral Assessment Generalized Edema Type: Non-pitting Edema Degree: 3+ Capillary Refill: > 3 seconds Skin Temperature: Cool Peripheral Pulses: within normal limits - Abdominal General gastrointestinal: soft, non-distended, normal bowel sounds, other (Obese) - Integumentary Integumentary: Present: erythema (BLE, cool to touch) - Psychiatric Psychiatric: appropriate mood/affect, cooperative - Neurologic Neurologic: moves all extremities - Allied Health Allied health notes reviewed: nursing, case management - Constitutional Vitals: Temp Pulse Resp BP Pulse Ox 98.3 F 74 19 127/67 97 06/29/22 08:00 06/29/22 09:21 06/29/22 09:21 06/29/22 09:21 06/29/22 09:21 HEART Score - HEART Score Troponin: Troponin T 0.080 ng/mL (0.00-0.029) H 06/27/22 20:48 Results - Labs CBC & Chem 7: 06/29/22 04:21 06/29/22 16:14 Labs: Laboratory Last Values WBC 17.1 K/mm3 (4.5-11.0) H 06/29/22 04:21 RBC 4.78 M/mm3 (3.65-5.03) 06/29/22 04:21 Hgb 14.6 gm/dl (10.1-14.3) H 06/29/22 04:21 Hct 43.9 % (30.3-42.9) H 06/29/22 04:21 MCV 92 fl (79-97) 06/29/22 04:21 MCH 30 pg (28-32) 06/29/22 04:21 MCHC 33 % (30-34) 06/29/22 04:21 RDW 14.4 % (13.2-15.2) 06/29/22 04:21 Plt Count 170 K/mm3 (140-440) 06/29/22 04:21 Lymph % (Auto) 6.3 % (13.4-35.0) L 06/27/22 20:48 [place] % (Auto) 4.8 % (0.0-7.3) 06/27/22 20:48 Eos % (Auto) 0.0 % (0.0-4.3) 06/27/22 20:48 Baso % (Auto) 0.3 % (0.0-1.8) 06/27/22 20:48 Lymph # (Auto) 1.2 K/mm3 (1.2-5.4) 06/27/22 20:48 [place] # (Auto) 0.9 K/mm3 (0.0-0.8) H 06/27/22 20:48 Eos # (Auto) 0.0 K/mm3 (0.0-0.4) 06/27/22 20:48 Baso # (Auto) 0.1 K/mm3 (0.0-0.1) 06/27/22 20:48 Seg Neutrophils % 88.6 % (40.0-70.0) H 06/27/22 20:48 Seg Neutrophils # 16.5 K/mm3 (1.8-7.7) H 06/27/22 20:48 PT 19.6 Sec. (12.2-14.9) H 06/28/22 15:07 INR 1.47 (0.87-1.13) H 06/28/22 15:07 APTT 30.3 Sec. (24.2-36.6) 06/28/22 15:07 Heparin Anti-Xa Level 0.31 U.I./ml (0.3-0.7) 06/29/22 04:21 Sodium 129 mmol/L (137-145) L 06/29/22 04:21 Potassium 4.6 mmol/L (3.6-5.0) 06/29/22 04:21 Chloride 97.6 mmol/L (98-107) L 06/29/22 04:21 Carbon Dioxide 15 mmol/L (22-30) L 06/29/22 04:21 Anion Gap 21 mmol/L 06/29/22 04:21 BUN 59 mg/dL (7-17) H 06/29/22 04:21 Creatinine 2.1 mg/dL (0.6-1.2) H 06/29/22 04:21 Estimated GFR 25 ml/min 06/29/22 04:21 BUN/Creatinine Ratio 28 % 06/29/22 04:21 Glucose 140 mg/dL (65-100) H 06/29/22 04:21 POC Glucose 152 mg/dL (70-105) H 06/29/22 10:35 Hemoglobin A1c 9.7 % (4-6) H 06/28/22 20:31 Calcium 8.0 mg/dL (8.4-10.2) L 06/29/22 04:21 Phosphorus 6.40 mg/dL (2.5-4.5) H 06/28/22 20:31 Magnesium 2.20 mg/dL (1.7-2.3) 06/28/22 20:31 Total Bilirubin 0.90 mg/dL (0.1-1.2) 06/27/22 20:48 AST 50 units/L (5-40) H 06/27/22 20:48 ALT 28 units/L (7-56) 06/27/22 20:48 Alkaline Phosphatase 97 units/L (35-129) 06/27/22 20:48 Troponin T 0.080 ng/mL (0.00-0.029) H 06/27/22 20:48 NT-Pro-B Natriuret Pep 4137 pg/mL (0-900) H 06/27/22 20:48 Total Protein 7.0 g/dL (6.3-8.2) 06/27/22 20:48 Albumin 3.1 g/dL (3.9-5) L 06/27/22 20:48 Albumin/Globulin Ratio 0.8 % 06/27/22 20:48 Triglycerides 349 mg/dL (2-149) H 06/27/22 20:48 Cholesterol 156 mg/dL (50-199) 06/27/22 20:48 LDL Cholesterol Direct 37 mg/dL (50-130) L 06/27/22 20:48 HDL Cholesterol 38 mg/dL (40-59) L 06/27/22 20:48 Cholesterol/HDL Ratio 4.10 % 06/27/22 20:48 PTH Intact 382.4 pg/mL (15-65) H 06/29/22 04:21 Urine Creatinine 85.4 mg/dL (0.1-20.0) H 06/28/22 08:10 Urine Sodium 10 mmol/L 06/28/22 08:10 Tian/IV: Voiding Method External Female Catheter Active Medications - Current Medications Current Medications: Generic Name Dose Route Start Last Admin Trade Name Freq PRN Reason Stop Dose Admin Acetaminophen 650 mg 06/28/22 03:09 Acetaminophen 325 Mg Tab PO Q6H PRN Pain MILD(1-3)/Fever >100.5/MURILLO Dextrose 0 ml 06/27/22 23:24 Dextrose 50% In Water (25gm) 50 Ml Syringe IV Q30MIN PRN Hypoglycemia Protocol Famotidine 20 mg 06/29/22 10:00 Famotidine 20 Mg Tab PO QDAY [facility] Heparin Sodium (Porcine) 5,000 unit 06/28/22 14:29 Heparin Prn Bolus(Standard Intensity Drip) 40 unit/kg (5000 unit) IV Q6H PRN For Heparin Anti-Xa < 0.1 Insulin Human Regular 100 100 mls @ 1 mls/hr 06/27/22 23:45 06/29/22 10:30 units/ Sodium Chloride IV 6 units/hr TITR SHANTHI 6 mls/hr Titration Protocol 1 UNITS/HR Heparin Sodium/Sodium Chloride 25,000 unit in 250 mls @ 13.66 mls/hr 06/28/22 15:00 06/29/22 09:06 Heparin/ 0.45% Nacl-25,000 Unit/250 Ml IV 11 units/kg/hr TITR SHANTHI 15.026 mls/hr Administration Protocol 10 UNITS/KG/HR Dextrose/Sodium Chloride 1,000 mls @ 100 mls/hr 06/28/22 17:00 06/29/22 01:34 D5ns IV 100 mls/hr DIRECT SHANTHI Administration Morphine Sulfate 2 mg 06/28/22 03:09 06/28/22 18:06 Morphine 2 Mg/1 Ml Inj IV 2 mg Q4H PRN Administration Pain, Moderate (4-6) Ondansetron HCl 4 mg 06/28/22 03:09 06/28/22 05:44 Ondansetron 4 Mg/2 Ml Inj IV 4 mg Q8H PRN Administration Nausea And Vomiting Sodium Bicarbonate 50 meq 06/29/22 09:00 Sodium Bicarb 8.4% 50 Meq/50 Ml Syringe IV 06/29/22 12:00 ONCE SHANTHI Sodium Chloride 10 ml 06/28/22 10:00 06/29/22 09:06 Sodium Chloride 0.9% 10 Ml Flush Syringe IV 10 ml BID SHANTHI Administration Sodium Chloride 10 ml 06/28/22 03:09 Sodium Chloride 0.9% 10 Ml Flush Syringe IV PRN PRN LINE FLUSH Nutrition/Malnutrition Assess - Dietary Evaluation Nutrition/Malnutrition Findings: Nutrition Notes Start: 06/28/22 11:39 Freq: Status: Active Protocol: Document 06/28/22 11:39 CHRISTAL (Rec: 06/28/22 11:49 CHRISTAL [id number]) Nutrition Notes Need for Assessment generated from: MD Order,Education Initial or Follow up Assessment Current Diagnosis Acute Kidney Injury,COPD, Diabetes,Hypertension Other Pertinent Diagnosis DKA, Hyperglycemia, SOB, Nausea, Hyperkalemia, Hyponatremia,... Current Diet NPO (since 06/28 03:11). Labs/Tests 06/28: Na 125, K 5.4, Cl 87.6, CO2 18, BUN 58, Crea 2.5, Glu 199, Phos 6.9. Pertinent Medications 06/28: D5/0.45ns @ 125ml/hr, Insulin 4U, others nutritionally unremarkable. Height 5 ft 4 in Weight 136.6 kg [place] Body Weight (kg) 54.54 BMI 51.7 Intake Prior to Admission Good Weight change and time frame Pt denies having loss body weight [employer]. Weight Status Morbidly Obese Subjective/Other Information RD consult for nutrition education and skin risk assessments. Pt is currently on NPO. Pt is on Nasal Cannula, O2 saturation @ 98%, according to Vital Signs notes. Pt still in critical condition , not a candidate for Nutrition Education at the time, will assess feasibility on F/U. Pt presents Bilateral LE redness/echimosis as sign of concern for skin risk at the time, according to Physical Assessment History notes. Percent of energy/protein needs met: Pt is on NPO. When pertinent, start with modified Consistent Carbohydrates -Renal- Diet, which provides for energy/ protein needs (2,061 Kcal/91 g ) during LOS. Burn Absent Trauma Absent GI Symptoms Nausea Food Allergy No Skin Integrity/Comment Bilateral LE redness/echimosis . Minimum of two criteria No Fluid Accumulation N/A Reduced Dress Cutter Strength N/A (non-severe) Protein-Calorie Malnutrition N\A #1 Nutrition Diagnosis Overweight/obesity Etiology Possibly associated with lifestyle. As Evidenced by Signs and Symptoms BMI: 51.7 Kg/m2. Is patient on ventilator? No Is Patient Ambulatory and/or Out of Bed No REE-([facility]-confined to bed) 2356.548 Kcal/Kg value to use for calculation 11 Approximate Energy Requirements Using 1503 kcal/Kg Calculation Used for Recommendations Kcal/kg Additional Notes Protein: 0.8-1.2 g/Kg AdjBW; 77-115 g/day. Fluids: 1 ml/Kcal, or as per MD. Nutrition Intervention Change Diet Order: When pertinent, start with modified Consistent Carbohydrates -Renal- Diet, advance as tolerated. Goal #1 Adjust the dietary intervention to better serve Pt's energy/protein needs and clinical conditions during LOS . Follow-Up By: 07/02/22 Additional Comments Nutrition education will be provided at F/U, if feasible. When pertinent, start monitoring food tolerance, %PO intake of meals, and BM. <OKEH,MASON E - Last Filed: 06/30/22 07:32> Assessment and Plan Assessment and plan: I saw and evaluated the patient. I agree with the findings and the plan of care as documented in the Nurse Practitioner's~note, with the following corrections and additions. Hospitalist Physical - Constitutional Vitals: Temp Pulse Resp BP Pulse Ox 98.8 F 70 18 159/73 96 06/30/22 04:29 06/30/22 06:00 06/30/22 06:00 06/30/22 06:00 06/30/22 06:00 HEART Score - HEART Score Troponin: Troponin T 0.080 ng/mL (0.00-0.029) H 06/27/22 20:48 Results - Labs CBC & Chem 7: 06/30/22 05:27 06/30/22 05:25 Labs: Laboratory Last Values WBC 8.7 K/mm3 (4.5-11.0) 06/30/22 05:27 RBC 4.58 M/mm3 (3.65-5.03) 06/30/22 05:27 Hgb 13.9 gm/dl (10.1-14.3) 06/30/22 05:27 Hct 42.4 % (30.3-42.9) 06/30/22 05:27 MCV 93 fl (79-97) 06/30/22 05:27 MCH 31 pg (28-32) 06/30/22 05:27 MCHC 33 % (30-34) 06/30/22 05:27 RDW 14.3 % (13.2-15.2) 06/30/22 05:27 Plt Count 172 K/mm3 (140-440) 06/30/22 05:27 Lymph % (Auto) 6.3 % (13.4-35.0) L 06/27/22 20:48 [place] % (Auto) 4.8 % (0.0-7.3) 06/27/22 20:48 Eos % (Auto) 0.0 % (0.0-4.3) 06/27/22 20:48 Baso % (Auto) 0.3 % (0.0-1.8) 06/27/22 20:48 Lymph # (Auto) 1.2 K/mm3 (1.2-5.4) 06/27/22 20:48 [place] # (Auto) 0.9 K/mm3 (0.0-0.8) H 06/27/22 20:48 Eos # (Auto) 0.0 K/mm3 (0.0-0.4) 06/27/22 20:48 Baso # (Auto) 0.1 K/mm3 (0.0-0.1) 06/27/22 20:48 Seg Neutrophils % 88.6 % (40.0-70.0) H 06/27/22 20:48 Seg Neutrophils # 16.5 K/mm3 (1.8-7.7) H 06/27/22 20:48 PT 19.6 Sec. (12.2-14.9) H 06/28/22 15:07 INR 1.47 (0.87-1.13) H 06/28/22 15:07 APTT 30.3 Sec. (24.2-36.6) 06/28/22 15:07 Heparin Anti-Xa Level 0.51 U.I./ml (0.3-0.7) 06/30/22 05:25 Sodium 132 mmol/L (137-145) L 06/30/22 05:25 Potassium 4.0 mmol/L (3.6-5.0) D 06/30/22 05:25 Chloride 99.8 mmol/L (98-107) 06/30/22 05:25 Carbon Dioxide 15 mmol/L (22-30) L 06/30/22 05:25 Anion Gap 21 mmol/L 06/30/22 05:25 BUN 53 mg/dL (7-17) H 06/30/22 05:25 Creatinine 1.7 mg/dL (0.6-1.2) H 06/30/22 05:25 Estimated GFR 32 ml/min 06/30/22 05:25 BUN/Creatinine Ratio 31 % 06/30/22 05:25 Glucose 137 mg/dL (65-100) H 06/30/22 05:25 POC Glucose 150 mg/dL (70-105) H 06/30/22 05:52 Hemoglobin A1c 9.7 % (4-6) H 06/28/22 20:31 Lactic Acid 1.90 mmol/L (0.7-2.0) 06/29/22 10:47 Calcium 8.7 mg/dL (8.4-10.2) 06/30/22 05:25 Phosphorus 4.20 mg/dL (2.5-4.5) 06/30/22 05:25 Magnesium 2.20 mg/dL (1.7-2.3) 06/30/22 05:25 Total Bilirubin 0.90 mg/dL (0.1-1.2) 06/27/22 20:48 AST 50 units/L (5-40) H 06/27/22 20:48 ALT 28 units/L (7-56) 06/27/22 20:48 Alkaline Phosphatase 97 units/L (35-129) 06/27/22 20:48 Troponin T 0.080 ng/mL (0.00-0.029) H 06/27/22 20:48 NT-Pro-B Natriuret Pep 4137 pg/mL (0-900) H 06/27/22 20:48 Total Protein 7.0 g/dL (6.3-8.2) 06/27/22 20:48 Albumin 3.1 g/dL (3.9-5) L 06/27/22 20:48 Albumin/Globulin Ratio 0.8 % 06/27/22 20:48 Triglycerides 349 mg/dL (2-149) H 06/27/22 20:48 Cholesterol 156 mg/dL (50-199) 06/27/22 20:48 LDL Cholesterol Direct 37 mg/dL (50-130) L 06/27/22 20:48 HDL Cholesterol 38 mg/dL (40-59) L 06/27/22 20:48 Cholesterol/HDL Ratio 4.10 % 06/27/22 20:48 Procalcitonin 2.51 ng/mL (<0.15) 06/29/22 10:47 PTH Intact 382.4 pg/mL (15-65) H 06/29/22 04:21 Urine Creatinine 85.4 mg/dL (0.1-20.0) H 06/28/22 08:10 Protein/Creatinin Ratio 0.57 06/28/22 08:10 Urine Sodium 10 mmol/L 06/28/22 08:10 Urine Total Protein 49 mg/dL (5-11.8) H 06/28/22 08:10 Tian/IV: Voiding Method External Female Catheter Active Medications - Current Medications Current Medications: Generic Name Dose Route Start Last Admin Trade Name Freq PRN Reason Stop Dose Admin Acetaminophen 650 mg 06/28/22 03:09 Acetaminophen 325 Mg Tab PO Q6H PRN Pain MILD(1-3)/Fever >100.5/MURILLO Dextrose 0 ml 06/27/22 23:24 Dextrose 50% In Water (25gm) 50 Ml Syringe IV Q30MIN PRN Hypoglycemia Protocol Famotidine 20 mg 06/29/22 10:00 06/29/22 11:47 Famotidine 20 Mg Tab PO Not Given QDAY SHANTHI Heparin Sodium (Porcine) 5,000 unit 06/28/22 14:29 Heparin Prn Bolus(Standard Intensity Drip) 40 unit/kg (5000 unit) IV Q6H PRN For Heparin Anti-Xa < 0.1 Insulin Human Regular 100 100 mls @ 1 mls/hr 06/27/22 23:45 06/30/22 07:25 units/ Sodium Chloride IV 6 units/hr TITR SHANTHI 6 mls/hr Titration Protocol 1 UNITS/HR Heparin Sodium/Sodium Chloride 25,000 unit in 250 mls @ 13.66 mls/hr 06/28/22 15:00 06/30/22 00:31 Heparin/ 0.45% Nacl-25,000 Unit/250 Ml IV 12 units/kg/hr TITR SHANTHI 16.392 mls/hr Administration Protocol 10 UNITS/KG/HR Dextrose/Sodium Chloride 1,000 mls @ 100 mls/hr 06/28/22 17:00 06/30/22 06:43 D5ns IV 100 mls/hr DIRECT SHANTHI Administration Morphine Sulfate 2 mg 06/28/22 03:09 06/28/22 18:06 Morphine 2 Mg/1 Ml Inj IV 2 mg Q4H PRN Administration Pain, Moderate (4-6) Ondansetron HCl 4 mg 06/28/22 03:09 06/28/22 05:44 Ondansetron 4 Mg/2 Ml Inj IV 4 mg Q8H PRN Administration Nausea And Vomiting Sodium Chloride 10 ml 06/28/22 10:00 06/29/22 21:44 Sodium Chloride 0.9% 10 Ml Flush Syringe IV 10 ml BID SHANTHI Administration Sodium Chloride 10 ml 06/28/22 03:09 Sodium Chloride 0.9% 10 Ml Flush Syringe IV PRN PRN LINE FLUSH Nutrition/Malnutrition Assess - Dietary Evaluation Nutrition/Malnutrition Findings: Nutrition Notes Start: 06/28/22 11:39 Freq: Status: Active Protocol: Document 06/28/22 11:39 CHRISTAL (Rec: 06/28/22 11:49 CHRISTAL [id number]) Nutrition Notes Need for Assessment generated from: MD Order,Education Initial or Follow up Assessment Current Diagnosis Acute Kidney Injury,COPD, Diabetes,Hypertension Other Pertinent Diagnosis DKA, Hyperglycemia, SOB, Nausea, Hyperkalemia, Hyponatremia,... Current Diet NPO (since 06/28 03:11). Labs/Tests 06/28: Na 125, K 5.4, Cl 87.6, CO2 18, BUN 58, Crea 2.5, Glu 199, Phos 6.9. Pertinent Medications 06/28: D5/0.45ns @ 125ml/hr, Insulin 4U, others nutritionally unremarkable. Height 5 ft 4 in Weight 136.6 kg [place] Body Weight (kg) 54.54 BMI 51.7 Intake Prior to Admission Good Weight change and time frame Pt denies having loss body weight [employer]. Weight Status Morbidly Obese Subjective/Other Information RD consult for nutrition education and skin risk assessments. Pt is currently on NPO. Pt is on Nasal Cannula, O2 saturation @ 98%, according to Vital Signs notes. Pt still in critical condition , not a candidate for Nutrition Education at the time, will assess feasibility on F/U. Pt presents Bilateral LE redness/echimosis as sign of concern for skin risk at the time, according to Physical Assessment History notes. Percent of energy/protein needs met: Pt is on NPO. When pertinent, start with modified Consistent Carbohydrates -Renal- Diet, which provides for energy/ protein needs (2,061 Kcal/91 g ) during LOS. Burn Absent Trauma Absent GI Symptoms Nausea Food Allergy No Skin Integrity/Comment Bilateral LE redness/echimosis . Minimum of two criteria No Fluid Accumulation N/A Reduced Dress Cutter Strength N/A (non-severe) Protein-Calorie Malnutrition N\A #1 Nutrition Diagnosis Overweight/obesity Etiology Possibly associated with lifestyle. As Evidenced by Signs and Symptoms BMI: 51.7 Kg/m2. Is patient on ventilator? No Is Patient Ambulatory and/or Out of Bed No REE-([place]-confined to bed) 2356.548 Kcal/Kg value to use for calculation 11 Approximate Energy Requirements Using 1503 kcal/Kg Calculation Used for Recommendations Kcal/kg Additional Notes Protein: 0.8-1.2 g/Kg AdjBW; 77-115 g/day. Fluids: 1 ml/Kcal, or as per MD. Nutrition Intervention Change Diet Order: When pertinent, start with modified Consistent Carbohydrates -Renal- Diet, advance as tolerated. Goal #1 Adjust the dietary intervention to better serve Pt's energy/protein needs and clinical conditions during LOS . Follow-Up By: 07/02/22 Additional Comments Nutrition education will be provided at F/U, if feasible. When pertinent, start monitoring food tolerance, %PO intake of meals, and BM.
[2022-06-29] MEDS: FAMOTIDINE 20 MG TAB PO SCH (11:47)
[2022-06-29 11:57] LABS: Calcium 8.9 mg/dL (8.4-10.2)
--- NOTE | 2022-06-29 13:18 | Electrocardiograph Report ---
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
[2022-06-29 13:46] LABS: Protein/Creatinine Ratio,Urine 0.57
--- NOTE | 2022-06-29 15:18 | Progress Note ---
Assessment and Plan Patient with an anion gap greater than 20 precluding any interventions. Patient still in DKA. At present, despite the extensive DVT that the patient presented with, she did appears to be not significantly symptomatic and maintains her pe genevieve pulses. Will order an abdominal x-ray to confirm patient's self-reported IVC filter. Additionally, the patient will be placed in CHRISTOPHER hose. Subjective Date of service: 06/29/22 Principal diagnosis: AHRF; DKA; Hyperkalemia; COPD; ? cellulitis; PVD; STEFFANIE; Morbid obesity; ?JACKLYN Interval history: Patient with a history of bilateral lower extremity DVT. On examination, the patient is sitting in a chair comfortably asking when she can go home. Her anion gap is still greater than 20. Bilateral dorsalis pedis pulses are palpable. Her legs are soft to the lower calf and distal consistent with her longstanding history of venous hypertension. The patient states that her legs feel normal as they always do. Objective - Constitutional Vitals: Vital Signs - 12hr 06/29/22 06/29/22 06/29/22 03:21 03:31 03:41 Temperature Pulse Rate 86 79 80 Pulse Rate [ From Monitor] Pulse Rate [ Left Dorsalis Pedis] Pulse Rate [ Right Dorsalis Pedis] Respiratory 34 H 22 21 Rate Blood Pressure 138/81 138/81 138/81 O2 Sat by Pulse 96 94 95 Oximetry 06/29/22 06/29/22 06/29/22 03:51 03:57 04:00 Temperature Pulse Rate 79 79 78 Pulse Rate [ From Monitor] Pulse Rate [ Left Dorsalis Pedis] Pulse Rate [ Right Dorsalis Pedis] Respiratory 22 20 Rate Blood Pressure 138/81 150/81 O2 Sat by Pulse 96 96 Oximetry 06/29/22 06/29/22 06/29/22 04:11 04:13 04:21 Temperature 98.0 F Pulse Rate 79 78 Pulse Rate [ From Monitor] Pulse Rate [ Left Dorsalis Pedis] Pulse Rate [ Right Dorsalis Pedis] Respiratory 22 24 Rate Blood Pressure 150/81 150/81 O2 Sat by Pulse 96 96 Oximetry 06/29/22 06/29/22 06/29/22 04:31 04:41 04:51 Temperature Pulse Rate 79 78 76 Pulse Rate [ From Monitor] Pulse Rate [ Left Dorsalis Pedis] Pulse Rate [ Right Dorsalis Pedis] Respiratory 23 23 23 Rate Blood Pressure 150/81 150/81 150/81 O2 Sat by Pulse 96 96 96 Oximetry 06/29/22 06/29/22 06/29/22 05:00 05:11 05:21 Temperature Pulse Rate 76 75 80 Pulse Rate [ From Monitor] Pulse Rate [ Left Dorsalis Pedis] Pulse Rate [ Right Dorsalis Pedis] Respiratory 22 22 21 Rate Blood Pressure 145/88 145/88 145/88 O2 Sat by Pulse 95 97 97 Oximetry 06/29/22 06/29/22 06/29/22 05:31 05:36 05:41 Temperature Pulse Rate 77 80 Pulse Rate [ From Monitor] Pulse Rate [ Left Dorsalis Pedis] Pulse Rate [ Right Dorsalis Pedis] Respiratory 18 20 21 Rate Blood Pressure 145/88 145/88 O2 Sat by Pulse 96 97 97 Oximetry 06/29/22 06/29/22 06/29/22 05:42 05:51 06:00 Temperature Pulse Rate 77 76 78 Pulse Rate [ From Monitor] Pulse Rate [ Left Dorsalis Pedis] Pulse Rate [ Right Dorsalis Pedis] Respiratory 21 19 Rate Blood Pressure 145/88 144/83 O2 Sat by Pulse 96 96 Oximetry 06/29/22 06/29/22 06/29/22 06:11 06:21 06:31 Temperature Pulse Rate 79 78 78 Pulse Rate [ From Monitor] Pulse Rate [ Left Dorsalis Pedis] Pulse Rate [ Right Dorsalis Pedis] Respiratory 22 19 19 Rate Blood Pressure 145/88 145/88 145/88 O2 Sat by Pulse 96 97 97 Oximetry 06/29/22 06/29/22 06/29/22 06:41 06:51 07:00 Temperature Pulse Rate 79 78 76 Pulse Rate [ From Monitor] Pulse Rate [ Left Dorsalis Pedis] Pulse Rate [ Right Dorsalis Pedis] Respiratory 22 23 20 Rate Blood Pressure 145/88 145/88 153/86 O2 Sat by Pulse 96 97 96 Oximetry 06/29/22 06/29/22 06/29/22 07:11 07:21 07:31 Temperature Pulse Rate 81 80 80 Pulse Rate [ From Monitor] Pulse Rate [ Left Dorsalis Pedis] Pulse Rate [ Right Dorsalis Pedis] Respiratory 25 H 23 22 Rate Blood Pressure 153/86 153/86 153/86 O2 Sat by Pulse 95 96 97 Oximetry 06/29/22 06/29/22 06/29/22 07:41 07:51 08:00 Temperature 98.3 F Pulse Rate 82 77 76 Pulse Rate [ 76 From Monitor] Pulse Rate [ 80 Left Dorsalis Pedis] Pulse Rate [ 80 Right Dorsalis Pedis] Respiratory 19 17 20 Rate Blood Pressure 153/86 153/86 151/85 O2 Sat by Pulse 97 96 96 Oximetry 06/29/22 06/29/22 06/29/22 08:11 08:21 08:24 Temperature Pulse Rate 75 72 Pulse Rate [ From Monitor] Pulse Rate [ Left Dorsalis Pedis] Pulse Rate [ Right Dorsalis Pedis] Respiratory 20 20 Rate Blood Pressure 151/85 151/85 O2 Sat by Pulse 96 96 95 Oximetry 06/29/22 06/29/22 06/29/22 08:31 08:41 08:51 Temperature Pulse Rate 76 73 86 Pulse Rate [ From Monitor] Pulse Rate [ Left Dorsalis Pedis] Pulse Rate [ Right Dorsalis Pedis] Respiratory 19 20 27 H Rate Blood Pressure 151/85 151/85 151/85 O2 Sat by Pulse 92 96 98 Oximetry 06/29/22 06/29/22 06/29/22 09:01 09:11 09:21 Temperature Pulse Rate 81 81 74 Pulse Rate [ From Monitor] Pulse Rate [ Left Dorsalis Pedis] Pulse Rate [ Right Dorsalis Pedis] Respiratory 19 27 H 19 Rate Blood Pressure 127/67 127/67 127/67 O2 Sat by Pulse 95 97 Oximetry 06/29/22 06/29/22 06/29/22 09:31 09:41 09:51 Temperature Pulse Rate 69 75 73 Pulse Rate [ From Monitor] Pulse Rate [ Left Dorsalis Pedis] Pulse Rate [ Right Dorsalis Pedis] Respiratory 18 18 16 Rate Blood Pressure 127/67 127/67 127/67 O2 Sat by Pulse 96 98 98 Oximetry 06/29/22 06/29/22 06/29/22 10:00 10:10 10:21 Temperature Pulse Rate 75 70 74 Pulse Rate [ From Monitor] Pulse Rate [ Left Dorsalis Pedis] Pulse Rate [ Right Dorsalis Pedis] Respiratory 17 18 20 Rate Blood Pressure 127/67 139/68 O2 Sat by Pulse 98 94 98 Oximetry 06/29/22 06/29/22 06/29/22 10:31 10:41 10:51 Temperature Pulse Rate 75 69 63 Pulse Rate [ From Monitor] Pulse Rate [ Left Dorsalis Pedis] Pulse Rate [ Right Dorsalis Pedis] Respiratory 15 17 17 Rate Blood Pressure 139/68 139/68 139/68 O2 Sat by Pulse 97 98 84 Oximetry 06/29/22 06/29/22 06/29/22 11:01 11:11 11:21 Temperature Pulse Rate 74 71 74 Pulse Rate [ From Monitor] Pulse Rate [ Left Dorsalis Pedis] Pulse Rate [ Right Dorsalis Pedis] Respiratory 18 17 17 Rate Blood Pressure 139/68 139/68 139/68 O2 Sat by Pulse 97 97 97 Oximetry 06/29/22 06/29/22 06/29/22 11:31 11:41 11:51 Temperature Pulse Rate 74 72 74 Pulse Rate [ From Monitor] Pulse Rate [ Left Dorsalis Pedis] Pulse Rate [ Right Dorsalis Pedis] Respiratory 19 15 19 Rate Blood Pressure 119/67 119/67 119/67 O2 Sat by Pulse 99 98 98 Oximetry 06/29/22 06/29/22 12:00 12:01 Temperature 97.8 F Pulse Rate 80 81 Pulse Rate [ 81 From Monitor] Pulse Rate [ Left Dorsalis Pedis] Pulse Rate [ Right Dorsalis Pedis] Respiratory 13 13 Rate Blood Pressure 124/73 124/73 O2 Sat by Pulse 94 94 Oximetry General appearance: Present: no acute distress, obese - EENT Eyes: EOM intact ENT: hearing intact - Neck Neck: supple, normal ROM - Respiratory Respiratory effort: normal - Breasts Breasts: deferred Extremity abnormal: edema - Gastrointestinal General gastrointestinal: Present: deferred Rectal Exam: deferred - Genitourinary Female genitourinary: deferred - Psychiatric Psychiatric: cooperative - Labs CBC & Chem 7: 06/29/22 04:21 06/29/22 10:47 Labs: Abnormal lab results 06/28/22 06/28/22 06/28/22 Range/Units 08:10 12:40 13:38 WBC (4.5-11.0) K/mm3 Hgb (10.1-14.3) gm/dl Hct (30.3-42.9) % PT (12.2-14.9) Sec. INR (0.87-1.13) Heparin Anti-Xa Level (0.3-0.7) U.I./ml Sodium (137-145) mmol/L Potassium (3.6-5.0) mmol/L Chloride (98-107) mmol/L Carbon Dioxide (22-30) mmol/L BUN (7-17) mg/dL Creatinine (0.6-1.2) mg/dL Glucose (65-100) mg/dL POC Glucose 258 H 205 H (70-105) mg/dL Hemoglobin A1c (4-6) % Calcium (8.4-10.2) mg/dL Phosphorus (2.5-4.5) mg/dL PTH Intact (15-65) pg/mL Urine Creatinine 85.4 H (0.1-20.0) mg/dL Urine Total Protein 49 H (5-11.8) mg/dL 06/28/22 06/28/22 06/28/22 Range/Units 14:56 15:07 15:07 WBC (4.5-11.0) K/mm3 Hgb 15.5 H (10.1-14.3) gm/dl Hct 46.8 H (30.3-42.9) % PT (12.2-14.9) Sec. INR (0.87-1.13) Heparin Anti-Xa Level (0.3-0.7) U.I./ml Sodium 128 L (137-145) mmol/L Potassium 5.3 H (3.6-5.0) mmol/L Chloride 94.0 L (98-107) mmol/L Carbon Dioxide 14 L (22-30) mmol/L BUN 59 H (7-17) mg/dL Creatinine 2.4 H (0.6-1.2) mg/dL Glucose 183 H (65-100) mg/dL POC Glucose 194 H (70-105) mg/dL Hemoglobin A1c (4-6) % Calcium 7.8 L (8.4-10.2) mg/dL Phosphorus (2.5-4.5) mg/dL PTH Intact (15-65) pg/mL Urine Creatinine (0.1-20.0) mg/dL Urine Total Protein (5-11.8) mg/dL 06/28/22 06/28/22 06/28/22 Range/Units 15:07 15:54 17:10 WBC (4.5-11.0) K/mm3 Hgb (10.1-14.3) gm/dl Hct (30.3-42.9) % PT 19.6 H (12.2-14.9) Sec. INR 1.47 H (0.87-1.13) Heparin Anti-Xa Level (0.3-0.7) U.I./ml Sodium (137-145) mmol/L Potassium (3.6-5.0) mmol/L Chloride (98-107) mmol/L Carbon Dioxide (22-30) mmol/L BUN (7-17) mg/dL Creatinine (0.6-1.2) mg/dL Glucose (65-100) mg/dL POC Glucose 189 H 216 H (70-105) mg/dL Hemoglobin A1c (4-6) % Calcium (8.4-10.2) mg/dL Phosphorus (2.5-4.5) mg/dL PTH Intact (15-65) pg/mL Urine Creatinine (0.1-20.0) mg/dL Urine Total Protein (5-11.8) mg/dL 06/28/22 06/28/22 06/28/22 Range/Units 17:59 18:54 19:49 WBC (4.5-11.0) K/mm3 Hgb (10.1-14.3) gm/dl Hct (30.3-42.9) % PT (12.2-14.9) Sec. INR (0.87-1.13) Heparin Anti-Xa Level (0.3-0.7) U.I./ml Sodium (137-145) mmol/L Potassium (3.6-5.0) mmol/L Chloride (98-107) mmol/L Carbon Dioxide (22-30) mmol/L BUN (7-17) mg/dL Creatinine (0.6-1.2) mg/dL Glucose (65-100) mg/dL POC Glucose 195 H 178 H 166 H (70-105) mg/dL Hemoglobin A1c (4-6) % Calcium (8.4-10.2) mg/dL Phosphorus (2.5-4.5) mg/dL PTH Intact (15-65) pg/mL Urine Creatinine (0.1-20.0) mg/dL Urine Total Protein (5-11.8) mg/dL 06/28/22 06/28/22 06/28/22 Range/Units 20:31 20:31 20:31 WBC (4.5-11.0) K/mm3 Hgb (10.1-14.3) gm/dl Hct (30.3-42.9) % PT (12.2-14.9) Sec. INR (0.87-1.13) Heparin Anti-Xa Level 0.19 L (0.3-0.7) U.I./ml Sodium 129 L (137-145) mmol/L Potassium 5.1 H (3.6-5.0) mmol/L Chloride 95.6 L (98-107) mmol/L Carbon Dioxide 15 L (22-30) mmol/L BUN 59 H (7-17) mg/dL Creatinine 2.4 H (0.6-1.2) mg/dL Glucose 145 H (65-100) mg/dL POC Glucose (70-105) mg/dL Hemoglobin A1c 9.7 H (4-6) % Calcium 8.0 L (8.4-10.2) mg/dL Phosphorus 6.40 H (2.5-4.5) mg/dL PTH Intact (15-65) pg/mL Urine Creatinine (0.1-20.0) mg/dL Urine Total Protein (5-11.8) mg/dL 06/28/22 06/28/22 06/28/22 Range/Units 21:27 22:22 23:36 WBC (4.5-11.0) K/mm3 Hgb (10.1-14.3) gm/dl Hct (30.3-42.9) % PT (12.2-14.9) Sec. INR (0.87-1.13) Heparin Anti-Xa Level (0.3-0.7) U.I./ml Sodium (137-145) mmol/L Potassium (3.6-5.0) mmol/L Chloride (98-107) mmol/L Carbon Dioxide (22-30) mmol/L BUN (7-17) mg/dL Creatinine (0.6-1.2) mg/dL Glucose (65-100) mg/dL POC Glucose 131 H 148 H 146 H (70-105) mg/dL Hemoglobin A1c (4-6) % Calcium (8.4-10.2) mg/dL Phosphorus (2.5-4.5) mg/dL PTH Intact (15-65) pg/mL Urine Creatinine (0.1-20.0) mg/dL Urine Total Protein (5-11.8) mg/dL 06/29/22 06/29/22 06/29/22 Range/Units 00:21 01:27 02:54 WBC (4.5-11.0) K/mm3 Hgb (10.1-14.3) gm/dl Hct (30.3-42.9) % PT (12.2-14.9) Sec. INR (0.87-1.13) Heparin Anti-Xa Level (0.3-0.7) U.I./ml Sodium (137-145) mmol/L Potassium (3.6-5.0) mmol/L Chloride (98-107) mmol/L Carbon Dioxide (22-30) mmol/L BUN (7-17) mg/dL Creatinine (0.6-1.2) mg/dL Glucose (65-100) mg/dL POC Glucose 149 H 172 H 172 H (70-105) mg/dL Hemoglobin A1c (4-6) % Calcium (8.4-10.2) mg/dL Phosphorus (2.5-4.5) mg/dL PTH Intact (15-65) pg/mL Urine Creatinine (0.1-20.0) mg/dL Urine Total Protein (5-11.8) mg/dL 06/29/22 06/29/22 06/29/22 Range/Units 04:05 04:21 04:21 WBC 17.1 H (4.5-11.0) K/mm3 Hgb 14.6 H (10.1-14.3) gm/dl Hct 43.9 H (30.3-42.9) % PT (12.2-14.9) Sec. INR (0.87-1.13) Heparin Anti-Xa Level (0.3-0.7) U.I./ml Sodium 129 L (137-145) mmol/L Potassium (3.6-5.0) mmol/L Chloride 97.6 L (98-107) mmol/L Carbon Dioxide 15 L (22-30) mmol/L BUN 59 H (7-17) mg/dL Creatinine 2.1 H (0.6-1.2) mg/dL Glucose 140 H (65-100) mg/dL POC Glucose 167 H (70-105) mg/dL Hemoglobin A1c (4-6) % Calcium 8.0 L (8.4-10.2) mg/dL Phosphorus (2.5-4.5) mg/dL PTH Intact (15-65) pg/mL Urine Creatinine (0.1-20.0) mg/dL Urine Total Protein (5-11.8) mg/dL 06/29/22 06/29/22 06/29/22 Range/Units 04:21 06:27 07:31 WBC (4.5-11.0) K/mm3 Hgb (10.1-14.3) gm/dl Hct (30.3-42.9) % PT (12.2-14.9) Sec. INR (0.87-1.13) Heparin Anti-Xa Level (0.3-0.7) U.I./ml Sodium (137-145) mmol/L Potassium (3.6-5.0) mmol/L Chloride (98-107) mmol/L Carbon Dioxide (22-30) mmol/L BUN (7-17) mg/dL Creatinine (0.6-1.2) mg/dL Glucose (65-100) mg/dL POC Glucose 138 H 142 H (70-105) mg/dL Hemoglobin A1c (4-6) % Calcium (8.4-10.2) mg/dL Phosphorus (2.5-4.5) mg/dL PTH Intact 382.4 H (15-65) pg/mL Urine Creatinine (0.1-20.0) mg/dL Urine Total Protein (5-11.8) mg/dL 06/29/22 06/29/22 06/29/22 Range/Units 08:33 09:28 10:35 WBC (4.5-11.0) K/mm3 Hgb (10.1-14.3) gm/dl Hct (30.3-42.9) % PT (12.2-14.9) Sec. INR (0.87-1.13) Heparin Anti-Xa Level (0.3-0.7) U.I./ml Sodium (137-145) mmol/L Potassium (3.6-5.0) mmol/L Chloride (98-107) mmol/L Carbon Dioxide (22-30) mmol/L BUN (7-17) mg/dL Creatinine (0.6-1.2) mg/dL Glucose (65-100) mg/dL POC Glucose 141 H 167 H 152 H (70-105) mg/dL Hemoglobin A1c (4-6) % Calcium (8.4-10.2) mg/dL Phosphorus (2.5-4.5) mg/dL PTH Intact (15-65) pg/mL Urine Creatinine (0.1-20.0) mg/dL Urine Total Protein (5-11.8) mg/dL 06/29/22 Range/Units 10:47 WBC (4.5-11.0) K/mm3 Hgb (10.1-14.3) gm/dl Hct (30.3-42.9) % PT (12.2-14.9) Sec. INR (0.87-1.13) Heparin Anti-Xa Level (0.3-0.7) U.I./ml Sodium 131 L (137-145) mmol/L Potassium (3.6-5.0) mmol/L Chloride 94.4 L (98-107) mmol/L Carbon Dioxide 15 L (22-30) mmol/L BUN 59 H (7-17) mg/dL Creatinine 2.2 H (0.6-1.2) mg/dL Glucose 149 H (65-100) mg/dL POC Glucose (70-105) mg/dL Hemoglobin A1c (4-6) % Calcium (8.4-10.2) mg/dL Phosphorus 5.80 H (2.5-4.5) mg/dL PTH Intact (15-65) pg/mL Urine Creatinine (0.1-20.0) mg/dL Urine Total Protein (5-11.8) mg/dL Medications & Allergies - Medications Allergies/Adverse Reactions: Allergies ciprofloxacin [From Cipro] Allergy (Verified 05/28/22 12:07) Unknown Penicillins Allergy (Verified 05/28/22 12:07) Unknown Home Medications: Home Medications Medication Instructions Recorded Confirmed Last Taken Type Apixaban [Eliquis] 5 mg PO BID 04/13/21 06/28/22 Unknown History Empagliflozin [Jardiance] 25 mg DAILY 04/13/21 06/28/22 Unknown History Fenofibrate 160 mg PO DAILY 04/13/21 06/28/22 Unknown History Glimepiride 4 mg BID 04/13/21 06/28/22 Unknown History Insulin Aspart (Nf) [NovoLOG 100 unit SQ PRN PRN 04/13/21 06/28/22 Unknown History Flexpen] Levothyroxine [Synthroid] 112 mcg PO QAM 04/13/21 06/28/22 Unknown History Lisinopril/Hydrochlorothiazide 1 tab PO QDAY 04/13/21 06/28/22 Unknown History [Zestoretic 20-12.5 mg] [place] Carbonate 600 mg PO QHS 04/13/21 06/28/22 Unknown History [place] Carbonate [Eskalith] 150 mg PO QAM 04/13/21 06/28/22 Unknown History Lurasidone [Latuda] 40 mg QHS 04/13/21 06/28/22 Unknown History Oxybutynin Chloride [Ditropan Xl] 15 mg PO QDAY 04/13/21 06/28/22 Unknown History Semaglutide [Ozempic] 1 unit SQ 1XW 04/13/21 06/28/22 Unknown History Venlafaxine HCl [Venlafaxine HCl 150 mg DAILY 04/13/21 06/28/22 Unknown History ER] buPROPion SR [Wellbutrin SR] 100 mg PO DAILY 04/13/21 06/28/22 Unknown History Doxycycline Hyclate [Doxycycline 100 mg PO Q12HR 7 Days #14 04/14/21 06/28/22 Unknown Rx Hyclate TAB] Active Medications: Generic Name Dose Route Start Last Admin Trade Name Freq PRN Reason Stop Dose Admin Acetaminophen 650 mg 06/28/22 03:09 Acetaminophen 325 Mg Tab PO Q6H PRN Pain MILD(1-3)/Fever >100.5/MURILLO Dextrose 0 ml 06/27/22 23:24 Dextrose 50% In Water (25gm) 50 Ml Syringe IV Q30MIN PRN Hypoglycemia Protocol Famotidine 20 mg 06/29/22 10:00 06/29/22 11:47 Famotidine 20 Mg Tab PO Not Given [facility] Heparin Sodium (Porcine) 5,000 unit 06/28/22 14:29 Heparin Prn Bolus(Standard Intensity Drip) 40 unit/kg (5000 unit) IV Q6H PRN For Heparin Anti-Xa < 0.1 Insulin Human Regular 100 100 mls @ 1 mls/hr 06/27/22 23:45 06/29/22 14:33 units/ Sodium Chloride IV 8 units/hr TITR SHANTHI 8 mls/hr Titration Protocol 1 UNITS/HR Heparin Sodium/Sodium Chloride 25,000 unit in 250 mls @ 13.66 mls/hr 06/28/22 15:00 06/29/22 09:06 Heparin/ 0.45% Nacl-25,000 Unit/250 Ml IV 11 units/kg/hr TITR SHANTHI 15.026 mls/hr Administration Protocol 10 UNITS/KG/HR Dextrose/Sodium Chloride 1,000 mls @ 100 mls/hr 06/28/22 17:00 06/29/22 11:46 D5ns IV 100 mls/hr DIRECT SHANTHI Administration Morphine Sulfate 2 mg 06/28/22 03:09 06/28/22 18:06 Morphine 2 Mg/1 Ml Inj IV 2 mg Q4H PRN Administration Pain, Moderate (4-6) Ondansetron HCl 4 mg 06/28/22 03:09 06/28/22 05:44 Ondansetron 4 Mg/2 Ml Inj IV 4 mg Q8H PRN Administration Nausea And Vomiting Sodium Chloride 10 ml 06/28/22 10:00 06/29/22 09:06 Sodium Chloride 0.9% 10 Ml Flush Syringe IV 10 ml BID SHANTHI Administration Sodium Chloride 10 ml 06/28/22 03:09 Sodium Chloride 0.9% 10 Ml Flush Syringe IV PRN PRN LINE FLUSH HEART Score - HEART Score Troponin: Troponin T 0.080 ng/mL (0.00-0.029) H 06/27/22 20:48
--- NOTE | 2022-06-29 16:03 | XRay Report ---
ABDOMEN 1 VIEW 06/29/2022 3:27 PM INDICATION / CLINICAL INFORMATION: Abdominal pain, DKA, confirm IVC filter. COMPARISON: None available. FINDINGS: TUBES / LINES: None. BOWEL GAS PATTERN: Nonspecific bowel gas pattern FREE AIR / EXTRALUMINAL GAS: None. ADDITIONAL FINDINGS: IVC filter is noted IMPRESSION: 1. IVC filter is noted at the level of approximately L3-L4 Signer Name: Mitchel Jacobs MD Signed: 06/29/2022 3:59 PM [facility]station [facility]
[2022-06-29 17:04] LABS: Calcium 7.9 mg/dL (8.4-10.2)
[2022-06-29 20:56] LABS: Calcium 8.6 mg/dL (8.4-10.2)
--- NOTE | 2022-06-29 21:10 | Consultation ---
History of Present Illness - Reason for Consult Consult date: 06/29/22 Reason for consult: adjustment for meds for bipolar d/o - Chief Complaint Chief complaint: Shortness of Breath - History of Present Psychiatric Illness Patient is a 52 year-old female with psychiatric history of bipolar disorder and major depressive disorder. Psych was consulted for adjustment for meds for bipolar d/o in context of DKA. Patient was seen today. Patient was asleep but responsive to voice. Patient was oriented to time and place. Patient reports she's at the hospital because "I fell 2 days ago and couldn't get up." "I was hurting all over my body, I couldn't eat." Patient reports being unsure which psychiatric medications she was taking before arriving at hospital. Patient reports being d/c from lithium 2 weeks ago "because I was having heart problems." Patient reports being started on oxcarbazepine. When asked how patient was feeling, patient reports "I don't know, I can't tell you anything. I'm so sick." Patient denies depressive sx or manic symptoms. Patient denies SI HI AVH. Medications and Allergies Allergies Allergy/AdvReac Type Severity Reaction Status Date / Time ciprofloxacin [From Cipro] Allergy Unknown Verified 05/28/22 12:07 Penicillins Allergy Unknown Verified 05/28/22 12:07 Home Medications Medication Instructions Recorded Confirmed Last Taken Type Apixaban [Eliquis] 5 mg PO BID 04/13/21 06/28/22 Unknown History Empagliflozin [Jardiance] 25 mg DAILY 04/13/21 06/28/22 Unknown History Fenofibrate 160 mg PO DAILY 04/13/21 06/28/22 Unknown History Glimepiride 4 mg BID 04/13/21 06/28/22 Unknown History Insulin Aspart (Nf) [NovoLOG 100 unit SQ PRN PRN 04/13/21 06/28/22 Unknown History Flexpen] Levothyroxine [Synthroid] 112 mcg PO QAM 04/13/21 06/28/22 Unknown History Lisinopril/Hydrochlorothiazide 1 tab PO QDAY 04/13/21 06/28/22 Unknown History [Zestoretic 20-12.5 mg] [place] Carbonate 600 mg PO QHS 04/13/21 06/28/22 Unknown History [place] Carbonate [Eskalith] 150 mg PO QAM 04/13/21 06/28/22 Unknown History Lurasidone [Latuda] 40 mg QHS 04/13/21 06/28/22 Unknown History Oxybutynin Chloride [Ditropan Xl] 15 mg PO QDAY 04/13/21 06/28/22 Unknown History Semaglutide [Ozempic] 1 unit SQ 1XW 04/13/21 06/28/22 Unknown History Venlafaxine HCl [Venlafaxine HCl 150 mg DAILY 04/13/21 06/28/22 Unknown History ER] buPROPion SR [Wellbutrin SR] 100 mg PO DAILY 04/13/21 06/28/22 Unknown History Doxycycline Hyclate [Doxycycline 100 mg PO Q12HR 7 Days #14 04/14/21 06/28/22 U nknown Rx Hyclate TAB] Active Meds: Active Medications Acetaminophen (Acetaminophen 325 Mg Tab) 650 mg PO Q6H PRN PRN Reason: Pain MILD(1-3)/Fever >100.5/MURILLO Dextrose (Dextrose 50% In Water (25gm) 50 Ml Syringe) 0 ml IV Q30MIN PRN; Protocol PRN Reason: Hypoglycemia Famotidine (Famotidine 20 Mg Tab) 20 mg PO QDAY SHANTHI Last Admin: 06/29/22 11:47 Dose: Not Given Heparin Sodium (Porcine) (Heparin Prn Bolus(Standard Intensity Drip)) 5,000 unit 40 unit/kg (5000 unit) IV Q6H PRN PRN Reason: For Heparin Anti-Xa < 0.1 Insulin Human Regular 100 (units/ Sodium Chloride) 100 mls @ 1 mls/hr IV TITR SHANTHI; Protocol Last Titration: 06/29/22 20:37 Dose: 6 units/hr, 6 mls/hr Heparin Sodium/Sodium Chloride (Heparin/ 0.45% Nacl-25,000 Unit/250 Ml) 25,000 unit in 250 mls @ 13.66 mls/hr IV TITR SHANTHI; Protocol Last Titration: 06/29/22 17:05 Dose: 12 units/kg/hr, 16.392 mls/hr Dextrose/Sodium Chloride (D5ns) 1,000 mls @ 100 mls/hr IV DIRECT SHANTHI Last Admin: 06/29/22 11:46 Dose: 100 mls/hr Morphine Sulfate (Morphine 2 Mg/1 Ml Inj) 2 mg IV Q4H PRN PRN Reason: Pain, Moderate (4-6) Last Admin: 06/28/22 18:06 Dose: 2 mg Ondansetron HCl (Ondansetron 4 Mg/2 Ml Inj) 4 mg IV Q8H PRN PRN Reason: Nausea And Vomiting Last Admin: 06/28/22 05:44 Dose: 4 mg Sodium Chloride (Sodium Chloride 0.9% 10 Ml Flush Syringe) 10 ml IV BID SHANTHI Last Admin: 06/29/22 09:06 Dose: 10 ml Sodium Chloride (Sodium Chloride 0.9% 10 Ml Flush Syringe) 10 ml IV PRN PRN PRN Reason: LINE FLUSH Past psychiatric history - past Psychiatric treatment and history Psych: Bipolar, Depression psychiatric treatment history: Latuda 40 mg qhs, [place] 750 mg qd, Effexor 150 mg qd, Bupropion SR 100 mg, Oxcarbazepine Mental Status Exam - Vital signs Last Vital Signs Temp 97.4 F L 06/29/22 20:00 Pulse 72 06/29/22 20:00 Resp 18 06/29/22 20:00 BP 158/73 06/29/22 20:00 Pulse Ox 96 06/29/22 20:02 - Exam Orientation: time, place Affect: normal Mood: appropriate, calm Thought Process: Tangential, Disoriented Perceptions: none Speech: normal rate and pattern Concentration: distractible Motor activity: normal Level of consciousness: confused Memory: Recent Impaired Sleep Symptoms: None Interaction: cooperative Results Result Diagrams: 06/30/22 05:27 06/30/22 10:59 Abnormal lab results 06/28/22 06/28/22 06/28/22 Range/Units 08:10 19:49 20:31 WBC (4.5-11.0) K/mm3 Hgb (10.1-14.3) gm/dl Hct (30.3-42.9) % Heparin Anti-Xa Level (0.3-0.7) U.I./ml Sodium 129 L (137-145) mmol/L Potassium 5.1 H (3.6-5.0) mmol/L Chloride 95.6 L (98-107) mmol/L Carbon Dioxide 15 L (22-30) mmol/L BUN 59 H (7-17) mg/dL Creatinine 2.4 H (0.6-1.2) mg/dL Glucose 145 H (65-100) mg/dL POC Glucose 166 H (70-105) mg/dL Hemoglobin A1c (4-6) % Calcium 8.0 L (8.4-10.2) mg/dL Phosphorus 6.40 H (2.5-4.5) mg/dL PTH Intact (15-65) pg/mL Urine Total Protein 49 H (5-11.8) mg/dL 06/28/22 06/28/22 06/28/22 Range/Units 20:31 20:31 21:27 WBC (4.5-11.0) K/mm3 Hgb (10.1-14.3) gm/dl Hct (30.3-42.9) % Heparin Anti-Xa Level 0.19 L (0.3-0.7) U.I./ml Sodium (137-145) mmol/L Potassium (3.6-5.0) mmol/L Chloride (98-107) mmol/L Carbon Dioxide (22-30) mmol/L BUN (7-17) mg/dL Creatinine (0.6-1.2) mg/dL Glucose (65-100) mg/dL POC Glucose 131 H (70-105) mg/dL Hemoglobin A1c 9.7 H (4-6) % Calcium (8.4-10.2) mg/dL Phosphorus (2.5-4.5) mg/dL PTH Intact (15-65) pg/mL Urine Total Protein (5-11.8) mg/dL 06/28/22 06/28/22 06/29/22 Range/Units 22:22 23:36 00:21 WBC (4.5-11.0) K/mm3 Hgb (10.1-14.3) gm/dl Hct (30.3-42.9) % Heparin Anti-Xa Level (0.3-0.7) U.I./ml Sodium (137-145) mmol/L Potassium (3.6-5.0) mmol/L Chloride (98-107) mmol/L Carbon Dioxide (22-30) mmol/L BUN (7-17) mg/dL Creatinine (0.6-1.2) mg/dL Glucose (65-100) mg/dL POC Glucose 148 H 146 H 149 H (70-105) mg/dL Hemoglobin A1c (4-6) % Calcium (8.4-10.2) mg/dL Phosphorus (2.5-4.5) mg/dL PTH Intact (15-65) pg/mL Urine Total Protein (5-11.8) mg/dL 06/29/22 06/29/22 06/29/22 Range/Units 01:27 02:54 04:05 WBC (4.5-11.0) K/mm3 Hgb (10.1-14.3) gm/dl Hct (30.3-42.9) % Heparin Anti-Xa Level (0.3-0.7) U.I./ml Sodium (137-145) mmol/L Potassium (3.6-5.0) mmol/L Chloride (98-107) mmol/L Carbon Dioxide (22-30) mmol/L BUN (7-17) mg/dL Creatinine (0.6-1.2) mg/dL Glucose (65-100) mg/dL POC Glucose 172 H 172 H 167 H (70-105) mg/dL Hemoglobin A1c (4-6) % Calcium (8.4-10.2) mg/dL Phosphorus (2.5-4.5) mg/dL PTH Intact (15-65) pg/mL Urine Total Protein (5-11.8) mg/dL 06/29/22 06/29/22 06/29/22 Range/Units 04:21 04:21 04:21 WBC 17.1 H (4.5-11.0) K/mm3 Hgb 14.6 H (10.1-14.3) gm/dl Hct 43.9 H (30.3-42.9) % Heparin Anti-Xa Level (0.3-0.7) U.I./ml Sodium 129 L (137-145) mmol/L Potassium (3.6-5.0) mmol/L Chloride 97.6 L (98-107) mmol/L Carbon Dioxide 15 L (22-30) mmol/L BUN 59 H (7-17) mg/dL Creatinine 2.1 H (0.6-1.2) mg/dL Glucose 140 H (65-100) mg/dL POC Glucose (70-105) mg/dL Hemoglobin A1c (4-6) % Calcium 8.0 L (8.4-10.2) mg/dL Phosphorus (2.5-4.5) mg/dL PTH Intact 382.4 H (15-65) pg/mL Urine Total Protein (5-11.8) mg/dL 06/29/22 06/29/22 06/29/22 Range/Units 06:27 07:31 08:33 WBC (4.5-11.0) K/mm3 Hgb (10.1-14.3) gm/dl Hct (30.3-42.9) % Heparin Anti-Xa Level (0.3-0.7) U.I./ml Sodium (137-145) mmol/L Potassium (3.6-5.0) mmol/L Chloride (98-107) mmol/L Carbon Dioxide (22-30) mmol/L BUN (7-17) mg/dL Creatinine (0.6-1.2) mg/dL Glucose (65-100) mg/dL POC Glucose 138 H 142 H 141 H (70-105) mg/dL Hemoglobin A1c (4-6) % Calcium (8.4-10.2) mg/dL Phosphorus (2.5-4.5) mg/dL PTH Intact (15-65) pg/mL Urine Total Protein (5-11.8) mg/dL 06/29/22 06/29/22 06/29/22 Range/Units 09:28 10:35 10:47 WBC (4.5-11.0) K/mm3 Hgb (10.1-14.3) gm/dl Hct (30.3-42.9) % Heparin Anti-Xa Level (0.3-0.7) U.I./ml Sodium 131 L (137-145) mmol/L Potassium (3.6-5.0) mmol/L Chloride 94.4 L (98-107) mmol/L Carbon Dioxide 15 L (22-30) mmol/L BUN 59 H (7-17) mg/dL Creatinine 2.2 H (0.6-1.2) mg/dL Glucose 149 H (65-100) mg/dL POC Glucose 167 H 152 H (70-105) mg/dL Hemoglobin A1c (4-6) % Calcium (8.4-10.2) mg/dL Phosphorus 5.80 H (2.5-4.5) mg/dL PTH Intact (15-65) pg/mL Urine Total Protein (5-11.8) mg/dL 06/29/22 06/29/22 06/29/22 Range/Units 11:30 12:33 13:28 WBC (4.5-11.0) K/mm3 Hgb (10.1-14.3) gm/dl Hct (30.3-42.9) % Heparin Anti-Xa Level (0.3-0.7) U.I./ml Sodium (137-145) mmol/L Potassium (3.6-5.0) mmol/L Chloride (98-107) mmol/L Carbon Dioxide (22-30) mmol/L BUN (7-17) mg/dL Creatinine (0.6-1.2) mg/dL Glucose (65-100) mg/dL POC Glucose 134 H 146 H 170 H (70-105) mg/dL Hemoglobin A1c (4-6) % Calcium (8.4-10.2) mg/dL Phosphorus (2.5-4.5) mg/dL PTH Intact (15-65) pg/mL Urine Total Protein (5-11.8) mg/dL 06/29/22 06/29/22 06/29/22 Range/Units 14:33 15:49 16:14 WBC (4.5-11.0) K/mm3 Hgb (10.1-14.3) gm/dl Hct (30.3-42.9) % Heparin Anti-Xa Level (0.3-0.7) U.I./ml Sodium 128 L (137-145) mmol/L Potassium (3.6-5.0) mmol/L Chloride 95.8 L (98-107) mmol/L Carbon Dioxide 15 L (22-30) mmol/L BUN 52 H (7-17) mg/dL Creatinine 1.8 H (0.6-1.2) mg/dL Glucose 138 H (65-100) mg/dL POC Glucose 188 H 155 H (70-105) mg/dL Hemoglobin A1c (4-6) % Calcium 7.9 L (8.4-10.2) mg/dL Phosphorus (2.5-4.5) mg/dL PTH Intact (15-65) pg/mL Urine Total Protein (5-11.8) mg/dL 06/29/22 06/29/22 06/29/22 Range/Units 16:14 16:45 17:47 WBC (4.5-11.0) K/mm3 Hgb (10.1-14.3) gm/dl Hct (30.3-42.9) % Heparin Anti-Xa Level 0.19 L (0.3-0.7) U.I./ml Sodium (137-145) mmol/L Potassium (3.6-5.0) mmol/L Chloride (98-107) mmol/L Carbon Dioxide (22-30) mmol/L BUN (7-17) mg/dL Creatinine (0.6-1.2) mg/dL Glucose (65-100) mg/dL POC Glucose 135 H 150 H (70-105) mg/dL Hemoglobin A1c (4-6) % Calcium (8.4-10.2) mg/dL Phosphorus (2.5-4.5) mg/dL PTH Intact (15-65) pg/mL Urine Total Protein (5-11.8) mg/dL 06/29/22 06/29/22 06/29/22 Range/Units 18:52 20:14 20:17 WBC (4.5-11.0) K/mm3 Hgb (10.1-14.3) gm/dl Hct (30.3-42.9) % Heparin Anti-Xa Level (0.3-0.7) U.I./ml Sodium 131 L (137-145) mmol/L Potassium 5.5 H D (3.6-5.0) mmol/L Chloride (98-107) mmol/L Carbon Dioxide 15 L (22-30) mmol/L BUN 56 H (7-17) mg/dL Creatinine 2.0 H (0.6-1.2) mg/dL Glucose 146 H (65-100) mg/dL POC Glucose 123 H 155 H (70-105) mg/dL Hemoglobin A1c (4-6) % Calcium (8.4-10.2) mg/dL Phosphorus 5.20 H (2.5-4.5) mg/dL PTH Intact (15-65) pg/mL Urine Total Protein (5-11.8) mg/dL All other labs normal. Assessment and Plan Assessment and plan: Bipolar disorder - Psychiatric problem (1) Bipolar disorder Current Visit: Yes Status: Acute Qualifiers: Active/Remission status: in partial remission plan to address problem: Start latuda 20 mg qd Start Depakote 250 mg q6h Risks, benefits and alternatives of medications discussed with the patient, questions answered and consent obtained from patient. PSYCHOTHERAPY: Supportive psychotherapy provided MEDICAL: Per primary team DELIRIUM PRECAUTIONS: Please re-orient patient frequently, keep lights on during the day, and minimize benzodiazepines and opiates as these medications could worsen patient's confusion. LOAN UNDERWRITER: Defer to primary DISPOSITION: Do not recommend acute inpatient psychiatric hospitalization at this time. FOLLOW-UP: Will follow Thank you for the consult. Please contact with any questions and/or concerns.
[2022-06-30] MEDS: HEPARIN/ 0.45% NACL DRIP 25,000 UNIT/250 ML BAG IV SCH ×2 (00:31→16:13)
[2022-06-30 06:06] LABS: Hematocrit 42.4 % (30.3-42.9); Hemoglobin 13.9 gm/dl (10.1-14.3); Mean Corpuscular HGB Conc 33 % (30-34); Mean Corpuscular Volume 93 fl (79-97); Platelet Count 172 K/mm3 (140-440); Red Blood Count 4.58 M/mm3 (3.65-5.03); Red Cell Distribution Width 14.3 % (13.2-15.2)
[2022-06-30 06:41] LABS: Calcium 8.7 mg/dL (8.4-10.2)
[2022-06-30] MEDS: D5W/0.9% NACL 1,000 ML IV SCH (06:43)
[2022-06-30] MEDS ORDERED: SODIUM BICARB 8.4% 50 MEQ/50 ML SYRINGE IV SCH ×2 (08:05→15:45)
[2022-06-30] MEDS ORDERED: DEXTROSE 50% IN WATER (25GM) 50 ML SYRINGE IV PRN (09:00)
--- NOTE | 2022-06-30 09:12 | Progress Note ---
Assessment and Plan 52-year-old -[place] female with known history of diabetes mellitus, hypertension, COPD presenting in the emergency room today complaining of shortness of breath. She has also had occasional palpitations. Patient has history of DVT and PE. Patient is on Eliquis at home. Patient denies any fever or chills, no headache or dizziness, no diaphoresis. Patient has had some nausea but no vomiting, no abdominal pain and no diarrhea. Patient has history of smoking 1 pack x 30 years. Counseled to stop smoking. Denies alcohol or drug abuse. Worked in [employer]. Not . No children. Allergic to CIPRO and Ampicillin. Work-up in the emergency room ,Significant findings on the labs includes potassium level of 6.4, sodium level of 121, anion gap of 40, BUN of 54 and creatinine of 2.5. Blood glucose was 562. Chest x-ray shows no acute findings. Patient being admitted for diabetic ketoacidosis. She has been started on IV fluid and insulin drip. Patient is Morbidly Obese, sleeping but arousable. Patient is on room air. Patients O2 saturation 98%. No acute respiratory diustress. Patient afebrile. No leukocytosis. Blood pressure 160/77, Pulse 77, Respirations 18. Chest xray obtained 06/27/22 reported No acute findings. Patient is on I/V Heparin and famotidine. I spent critical care time of 40 minutes, obtaining history, review the chart, examine the patient, review chest xray, lab results, talking to the nursing staff, respiratory therapy and work up plan of treatment in this critically ill patient. - Patient Problems (1) Cardiac arrhythmia Current Visit: Yes Status: Acute Plan to address problem: Management as per cardiology. (2) Acute metabolic encephalopathy Current Visit: No Status: Acute Plan to address problem: Management as per primary care. (3) COPD (chronic obstructive pulmonary disease) Current Visit: No Status: Acute Plan to address problem: Recommend Xopenex and atrovent aerosol treatments q 8 hours. Patient is on I/V heparin. Continue famotidine. (4) DKA (diabetic ketoacidoses) Current Visit: No Status: Acute Plan to address problem: Patient is on I/V Insulin. Patient is On I/V fluids NSS. Management as per primary care. (5) Hypertension Current Visit: No Status: Acute Plan to address problem: Management as per primary care. (6) Renal insufficiency Current Visit: No Status: Acute Plan to address problem: Management as per nephrology. (7) Morbid obesity with BMI of 50.0-59.9, adult Current Visit: Yes Status: Acute Plan to address problem: Recommend to loose weight. Recommend Sleep study as out patient. (8) History of deep venous thrombosis or pulmonary embolus Current Visit: Yes Status: Acute Plan to address problem: Patient was on Eliquis at home. Presently she is on I/V Heparin. (9) Nicotine dependence Current Visit: Yes Status: Acute Plan to address problem: Counseled to stop smokng. Recommend Nicoderm Patch. Subjective Date of service: 06/30/22 Principal diagnosis: AHRF; DKA; Hyperkalemia; COPD; ? cellulitis; PVD; STEFFANIE; Morbid obesity; ?JACKLYN Interval history: 52-year-old -[place] female with known history of diabetes mellitus, hypertension, COPD presenting in the emergency room today complaining of shortness of breath. She has also had occasional palpitations. Patient has history of DVT and PE. Patient is on Eliquis at home. Patient denies any fever or chills, no headache or dizziness, no diaphoresis. Patient has had some nausea but no vomiting, no abdominal pain and no diarrhea. Patient has history of smoking 1 pack x 30 years. Counseled to stop smoking. Denies alcohol or drug abuse. Worked in [employer]. Not . No children. Allergic to CIPRO and Ampicillin. Work-up in the emergency room ,Significant findings on the labs includes potassium level of 6.4, sodium level of 121, anion gap of 40, BUN of 54 and creatinine of 2.5. Blood glucose was 562. Chest x-ray shows no acute findings. Patient being admitted for diabetic ketoacidosis. She has been started on IV fluid and insulin drip. Patient is Morbidly Obese, sleeping but arousable. Patient is on room air. Patients O2 saturation 98%. No acute respiratory diustress. Patient afebrile. No leukocytosis. Blood pressure 160/77, Pulse 77, Respirations 18. Chest xray obtained 06/27/22 reported No acute findings. Patient is on I/V Heparin and famotidine. Objective Vital Signs - 12hr 09/16/22 09/16/22 09/16/22 22:00 22:36 23:00 Temperature 99.3 F Pulse Rate 74 77 84 Respiratory 21 22 19 Rate Blood Pressure 161/85 161/85 161/85 O2 Sat by Pulse 94 97 97 Oximetry 06/29/22 06/30/22 06/30/22 23:34 00:00 01:00 Temperature 99.3 F Pulse Rate 83 77 82 Respiratory 14 19 17 Rate Blood Pressure 161/85 143/81 145/86 O2 Sat by Pulse 96 95 93 Oximetry 06/30/22 06/30/22 06/30/22 02:00 03:00 04:00 Temperature 98.8 F Pulse Rate 78 76 72 Respiratory 20 20 21 Rate Blood Pressure 142/83 151/80 140/73 O2 Sat by Pulse 94 94 98 Oximetry 06/30/22 06/30/22 06/30/22 04:29 05:00 06:00 Temperature 98.8 F Pulse Rate 68 70 Respiratory 19 18 Rate Blood Pressure 142/73 159/73 O2 Sat by Pulse 98 96 Oximetry 06/30/22 08:22 Temperature Pulse Rate Respiratory Rate Blood Pressure O2 Sat by Pulse 98 Oximetry Constitutional: no acute distress, asleep, other (Morbidly Obese, sleeping but arousable.) Eyes: non-icteric ENT: oropharynx moist Neck: supple, no lymphadenopathy, no JVD, other (large circumference) Effort: mildly labored Ascultation: Bilateral: diminished breath sounds Percussion: Bilateral: not dull Cardiovascular: regular rate and rhythm Gastrointestinal: normoactive bowel sounds, non-tender, tender, non-distended Integumentary: rash (shins), other (erythema to shins) Extremities: no cyanosis, pink and warm, no ischemia or petechiae, edema (trace to 1+) Neurologic: normal mental status, non-focal exam (grossly), pupils equal and round, motor strength normal and Psychiatric: mood appropriate, affect normal CBC and BMP: 06/30/22 05:27 06/30/22 10:59 ABG, PT/INR, D-dimer: PT/INR, D-dimer PT 19.6 Sec. (12.2-14.9) H 06/28/22 15:07 INR 1.47 (0.87-1.13) H 06/28/22 15:07 Abnormal lab findings: Abnormal Labs 09/06/27/22 06/27/22 20:48 20:48 23:56 WBC 18.7 H RBC Hgb 15.1 H Hct 47.1 H Lymph % (Auto) 6.3 L [place] # (Auto) 0.9 H Seg Neutrophils % 88.6 H Seg Neutrophils # 16.5 H PT INR Heparin Anti-Xa Level Sodium 123 L 121 L Potassium 6.9 H* 6.4 H* Chloride 82.4 L 79.7 L Carbon Dioxide 7 L* 8 L* BUN 50 H 54 H Creatinine 2.2 H 2.5 H Glucose 578 H* 562 H* POC Glucose Hemoglobin A1c Calcium Phosphorus 10.40 H Magnesium 2.70 H 2.60 H AST 50 H Troponin T 0.080 H NT-Pro-B Natriuret Pep 4137 H Albumin 3.1 L Triglycerides 349 H LDL Cholesterol Direct 37 L HDL Cholesterol 38 L PTH Intact Urine Creatinine Urine Total Protein 06/28/22 06/28/22 06/28/22 01:45 03:17 03:35 WBC RBC Hgb Hct Lymph % (Auto) [place] # (Auto) Seg Neutrophils % Seg Neutrophils # PT INR Heparin Anti-Xa Level Sodium 120 L 121 L Potassium 6.2 H* 5.4 H Chloride 79.1 L 84.7 L Carbon Dioxide 7 L* 7 L* BUN 55 H 57 H Creatinine 2.6 H 2.6 H Glucose 551 H* 486 H POC Glucose 568 H Hemoglobin A1c Calcium 8.1 L 7.7 L Phosphorus Magnesium AST Troponin T NT-Pro-B Natriuret Pep Albumin Triglycerides LDL Cholesterol Direct HDL Cholesterol PTH Intact Urine Creatinine Urine Total Protein 06/28/22 06/28/22 06/28/22 03:35 04:05 05:13 WBC RBC Hgb Hct Lymph % (Auto) [place] # (Auto) Seg Neutrophils % Seg Neutrophils # PT INR Heparin Anti-Xa Level Sodium Potassium Chloride Carbon Dioxide BUN Creatinine Glucose POC Glucose 508 H 443 H Hemoglobin A1c Calcium Phosphorus 9.20 H Magnesium AST Troponin T NT-Pro-B Natriuret Pep Albumin Triglycerides LDL Cholesterol Direct HDL Cholesterol PTH Intact Urine Creatinine Urine Total Protein 06/28/22 06/28/22 06/28/22 05:40 06:30 07:39 WBC RBC Hgb Hct Lymph % (Auto) [place] # (Auto) Seg Neutrophils % Seg Neutrophils # PT INR Heparin Anti-Xa Level Sodium 124 L Potassium 5.1 H Chloride 86.5 L Carbon Dioxide 13 L BUN 59 H Creatinine 2.6 H Glucose 396 H POC Glucose 419 H 377 H Hemoglobin A1c Calcium 8.0 L Phosphorus Magnesium AST Troponin T NT-Pro-B Natriuret Pep Albumin Triglycerides LDL Cholesterol Direct HDL Cholesterol PTH Intact Urine Creatinine Urine Total Protein 06/28/22 06/28/22 06/28/22 08:10 08:18 09:32 WBC RBC Hgb Hct Lymph % (Auto) [place] # (Auto) Seg Neutrophils % Seg Neutrophils # PT INR Heparin Anti-Xa Level Sodium Potassium Chloride Carbon Dioxide BUN Creatinine Glucose POC Glucose 390 H 347 H Hemoglobin A1c Calcium Phosphorus Magnesium AST Troponin T NT-Pro-B Natriuret Pep Albumin Triglycerides LDL Cholesterol Direct HDL Cholesterol PTH Intact Urine Creatinine 85.4 H Urine Total Protein 49 H 06/28/22 06/28/22 06/28/22 10:46 11:40 12:40 WBC RBC Hgb Hct Lymph % (Auto) [place] # (Auto) Seg Neutrophils % Seg Neutrophils # PT INR Heparin Anti-Xa Level Sodium Potassium Chloride Carbon Dioxide BUN Creatinine Glucose POC Glucose 313 H 274 H 258 H Hemoglobin A1c Calcium Phosphorus Magnesium AST Troponin T NT-Pro-B Natriuret Pep Albumin Triglycerides LDL Cholesterol Direct HDL Cholesterol PTH Intact Urine Creatinine Urine Total Protein 06/28/22 06/28/22 06/28/22 13:38 14:13 14:13 WBC 19.7 H RBC 5.33 H Hgb 16.2 H Hct 49.4 H Lymph % (Auto) [place] # (Auto) Seg Neutrophils % Seg Neutrophils # PT INR Heparin Anti-Xa Level Sodium 125 L Potassium 5.4 H Chloride 87.6 L Carbon Dioxide 18 L BUN 58 H Creatinine 2.5 H Glucose 199 H POC Glucose 205 H Hemoglobin A1c Calcium Phosphorus 6.90 H D Magnesium AST Troponin T NT-Pro-B Natriuret Pep Albumin Triglycerides LDL Cholesterol Direct HDL Cholesterol PTH Intact Urine Creatinine Urine Total Protein 06/28/22 06/28/22 06/28/22 14:56 15:07 15:07 WBC RBC Hgb 15.5 H Hct 46.8 H Lymph % (Auto) [place] # (Auto) Seg Neutrophils % Seg Neutrophils # PT INR Heparin Anti-Xa Level Sodium 128 L Potassium 5.3 H Chloride 94.0 L Carbon Dioxide 14 L BUN 59 H Creatinine 2.4 H Glucose 183 H POC Glucose 194 H Hemoglobin A1c Calcium 7.8 L Phosphorus Magnesium AST Troponin T NT-Pro-B Natriuret Pep Albumin Triglycerides LDL Cholesterol Direct HDL Cholesterol PTH Intact Urine Creatinine Urine Total Protein 06/28/22 06/28/22 06/28/22 15:07 15:54 17:10 WBC RBC Hgb Hct Lymph % (Auto) [place] # (Auto) Seg Neutrophils % Seg Neutrophils # PT 19.6 H INR 1.47 H Heparin Anti-Xa Level Sodium Potassium Chloride Carbon Dioxide BUN Creatinine Glucose POC Glucose 189 H 216 H Hemoglobin A1c Calcium Phosphorus Magnesium AST Troponin T NT-Pro-B Natriuret Pep Albumin Triglycerides LDL Cholesterol Direct HDL Cholesterol PTH Intact Urine Creatinine Urine Total Protein 06/28/22 06/28/22 06/28/22 17:59 18:54 19:49 WBC RBC Hgb Hct Lymph % (Auto) [place] # (Auto) Seg Neutrophils % Seg Neutrophils # PT INR Heparin Anti-Xa Level Sodium Potassium Chloride Carbon Dioxide BUN Creatinine Glucose POC Glucose 195 H 178 H 166 H Hemoglobin A1c Calcium Phosphorus Magnesium AST Troponin T NT-Pro-B Natriuret Pep Albumin Triglycerides LDL Cholesterol Direct HDL Cholesterol PTH Intact Urine Creatinine Urine Total Protein 06/28/22 06/28/22 06/28/22 20:31 20:31 20:31 WBC RBC Hgb Hct Lymph % (Auto) [place] # (Auto) Seg Neutrophils % Seg Neutrophils # PT INR Heparin Anti-Xa Level 0.19 L Sodium 129 L Potassium 5.1 H Chloride 95.6 L Carbon Dioxide 15 L BUN 59 H Creatinine 2.4 H Glucose 145 H POC Glucose Hemoglobin A1c 9.7 H Calcium 8.0 L Phosphorus 6.40 H Magnesium AST Troponin T NT-Pro-B Natriuret Pep Albumin Triglycerides LDL Cholesterol Direct HDL Cholesterol PTH Intact Urine Creatinine Urine Total Protein 06/28/22 06/28/22 06/28/22 21:27 22:22 23:36 WBC RBC Hgb Hct Lymph % (Auto) [place] # (Auto) Seg Neutrophils % Seg Neutrophils # PT INR Heparin Anti-Xa Level Sodium Potassium Chloride Carbon Dioxide BUN Creatinine Glucose POC Glucose 131 H 148 H 146 H Hemoglobin A1c Calcium Phosphorus Magnesium AST Troponin T NT-Pro-B Natriuret Pep Albumin Triglycerides LDL Cholesterol Direct HDL Cholesterol PTH Intact Urine Creatinine Urine Total Protein 06/29/22 06/29/22 06/29/22 00:21 01:27 02:54 WBC RBC Hgb Hct Lymph % (Auto) [place] # (Auto) Seg Neutrophils % Seg Neutrophils # PT INR Heparin Anti-Xa Level Sodium Potassium Chloride Carbon Dioxide BUN Creatinine Glucose POC Glucose 149 H 172 H 172 H Hemoglobin A1c Calcium Phosphorus Magnesium AST Troponin T NT-Pro-B Natriuret Pep Albumin Triglycerides LDL Cholesterol Direct HDL Cholesterol PTH Intact Urine Creatinine Urine Total Protein 06/29/22 06/29/22 06/29/22 04:05 04:21 04:21 WBC 17.1 H RBC Hgb 14.6 H Hct 43.9 H Lymph % (Auto) [place] # (Auto) Seg Neutrophils % Seg Neutrophils # PT INR Heparin Anti-Xa Level Sodium 129 L Potassium Chloride 97.6 L Carbon Dioxide 15 L BUN 59 H Creatinine 2.1 H Glucose 140 H POC Glucose 167 H Hemoglobin A1c Calcium 8.0 L Phosphorus Magnesium AST Troponin T NT-Pro-B Natriuret Pep Albumin Triglycerides LDL Cholesterol Direct HDL Cholesterol PTH Intact Urine Creatinine Urine Total Protein 06/29/22 06/29/22 06/29/22 04:21 06:27 07:31 WBC RBC Hgb Hct Lymph % (Auto) [place] # (Auto) Seg Neutrophils % Seg Neutrophils # PT INR Heparin Anti-Xa Level Sodium Potassium Chloride Carbon Dioxide BUN Creatinine Glucose POC Glucose 138 H 142 H Hemoglobin A1c Calcium Phosphorus Magnesium AST Troponin T NT-Pro-B Natriuret Pep Albumin Triglycerides LDL Cholesterol Direct HDL Cholesterol PTH Intact 382.4 H Urine Creatinine Urine Total Protein 06/29/22 06/29/22 06/29/22 08:33 09:28 10:35 WBC RBC Hgb Hct Lymph % (Auto) [place] # (Auto) Seg Neutrophils % Seg Neutrophils # PT INR Heparin Anti-Xa Level Sodium Potassium Chloride Carbon Dioxide BUN Creatinine Glucose POC Glucose 141 H 167 H 152 H Hemoglobin A1c Calcium Phosphorus Magnesium AST Troponin T NT-Pro-B Natriuret Pep Albumin Triglycerides LDL Cholesterol Direct HDL Cholesterol PTH Intact Urine Creatinine Urine Total Protein 06/29/22 06/29/22 06/29/22 10:47 11:30 12:33 WBC RBC Hgb Hct Lymph % (Auto) [place] # (Auto) Seg Neutrophils % Seg Neutrophils # PT INR Heparin Anti-Xa Level Sodium 131 L Potassium Chloride 94.4 L Carbon Dioxide 15 L BUN 59 H Creatinine 2.2 H Glucose 149 H POC Glucose 134 H 146 H Hemoglobin A1c Calcium Phosphorus 5.80 H Magnesium AST Troponin T NT-Pro-B Natriuret Pep Albumin Triglycerides LDL Cholesterol Direct HDL Cholesterol PTH Intact Urine Creatinine Urine Total Protein 06/29/22 06/29/22 06/29/22 13:28 14:33 15:49 WBC RBC Hgb Hct Lymph % (Auto) [place] # (Auto) Seg Neutrophils % Seg Neutrophils # PT INR Heparin Anti-Xa Level Sodium Potassium Chloride Carbon Dioxide BUN Creatinine Glucose POC Glucose 170 H 188 H 155 H Hemoglobin A1c Calcium Phosphorus Magnesium AST Troponin T NT-Pro-B Natriuret Pep Albumin Triglycerides LDL Cholesterol Direct HDL Cholesterol PTH Intact Urine Creatinine Urine Total Protein 06/29/22 06/29/22 06/29/22 16:14 16:14 16:45 WBC RBC Hgb Hct Lymph % (Auto) [place] # (Auto) Seg Neutrophils % Seg Neutrophils # PT INR Heparin Anti-Xa Level 0.19 L Sodium 128 L Potassium Chloride 95.8 L Carbon Dioxide 15 L BUN 52 H Creatinine 1.8 H Glucose 138 H POC Glucose 135 H Hemoglobin A1c Calcium 7.9 L Phosphorus Magnesium AST Troponin T NT-Pro-B Natriuret Pep Albumin Triglycerides LDL Cholesterol Direct HDL Cholesterol PTH Intact Urine Creatinine Urine Total Protein 06/29/22 06/29/22 06/29/22 17:47 18:52 20:14 WBC RBC Hgb Hct Lymph % (Auto) [place] # (Auto) Seg Neutrophils % Seg Neutrophils # PT INR Heparin Anti-Xa Level Sodium Potassium Chloride Carbon Dioxide BUN Creatinine Glucose POC Glucose 150 H 123 H 155 H Hemoglobin A1c Calcium Phosphorus Magnesium AST Troponin T NT-Pro-B Natriuret Pep Albumin Triglycerides LDL Cholesterol Direct HDL Cholesterol PTH Intact Urine Creatinine Urine Total Protein 06/29/22 06/29/22 06/29/22 20:17 21:11 21:53 WBC RBC Hgb Hct Lymph % (Auto) [place] # (Auto) Seg Neutrophils % Seg Neutrophils # PT INR Heparin Anti-Xa Level Sodium 131 L Potassium 5.5 H D Chloride Carbon Dioxide 15 L BUN 56 H Creatinine 2.0 H Glucose 146 H POC Glucose 152 H 165 H Hemoglobin A1c Calcium Phosphorus 5.20 H Magnesium AST Troponin T NT-Pro-B Natriuret Pep Albumin Triglycerides LDL Cholesterol Direct HDL Cholesterol PTH Intact Urine Creatinine Urine Total Protein 06/29/22 06/30/22 06/30/22 23:07 00:18 00:58 WBC RBC Hgb Hct Lymph % (Auto) [place] # (Auto) Seg Neutrophils % Seg Neutrophils # PT INR Heparin Anti-Xa Level Sodium Potassium Chloride Carbon Dioxide BUN Creatinine Glucose POC Glucose 163 H 178 H 189 H Hemoglobin A1c Calcium Phosphorus Magnesium AST Troponin T NT-Pro-B Natriuret Pep Albumin Triglycerides LDL Cholesterol Direct HDL Cholesterol PTH Intact Urine Creatinine Urine Total Protein 06/30/22 06/30/22 06/30/22 01:57 02:59 03:53 WBC RBC Hgb Hct Lymph % (Auto) [place] # (Auto) Seg Neutrophils % Seg Neutrophils # PT INR Heparin Anti-Xa Level Sodium Potassium Chloride Carbon Dioxide BUN Creatinine Glucose POC Glucose 150 H 147 H 122 H Hemoglobin A1c Calcium Phosphorus Magnesium AST Troponin T NT-Pro-B Natriuret Pep Albumin Triglycerides LDL Cholesterol Direct HDL Cholesterol PTH Intact Urine Creatinine Urine Total Protein 06/30/22 06/30/22 06/30/22 04:56 05:25 05:52 WBC RBC Hgb Hct Lymph % (Auto) [place] # (Auto) Seg Neutrophils % Seg Neutrophils # PT INR Heparin Anti-Xa Level Sodium 132 L Potassium Chloride Carbon Dioxide 15 L BUN 53 H Creatinine 1.7 H Glucose 137 H POC Glucose 110 H 150 H Hemoglobin A1c Calcium Phosphorus Magnesium AST Troponin T NT-Pro-B Natriuret Pep Albumin Triglycerides LDL Cholesterol Direct HDL Cholesterol PTH Intact Urine Creatinine Urine Total Protein Chest x-ray: report reviewed, image reviewed Additional Studies: CHEST 1 VIEW 06/27/2022 7:52 PM INDICATION / CLINICAL INFORMATION: Tachycardia. COMPARISON: 04/12/2021 FINDINGS: SUPPORT DEVICES: None. HEART / MEDIASTINUM: No significant abnormality. LUNGS / PLEURA: Low lung volumes without focal consolidation. No pneumothorax. ADDITIONAL FINDINGS: No significant additional findings. IMPRESSION: 1. No acute findings. Allied health notes reviewed: nursing
--- NOTE | 2022-06-30 09:32 | Progress Note ---
Assessment and Plan Patient with extensive bilateral lower extremity DVT. We will plan on interventions/thrombectomy once the patient is stabilized from a medical point of view. Still in DKA with a gap of 21. Subjective Date of service: 06/30/22 Principal diagnosis: AHRF; DKA; Hyperkalemia; COPD; ? cellulitis; PVD; STEFFANIE; Morbid obesity; ?JACKLYN Interval history: Patient with extensive bilateral lower extremity DVT still in DKA. CHRISTOPHER hose are in place and her DP pulses are palpable bilaterally. Patient with no significant complaints. Objective - Constitutional Vitals: Vital Signs - 12hr 06/29/22 06/29/22 06/29/22 22:00 22:36 23:00 Temperature 99.3 F Pulse Rate 74 77 84 Respiratory 21 22 19 Rate Blood Pressure 161/85 161/85 161/85 O2 Sat by Pulse 94 97 97 Oximetry 06/29/22 06/30/22 06/30/22 23:34 00:00 01:00 Temperature 99.3 F Pulse Rate 83 77 82 Respiratory 14 19 17 Rate Blood Pressure 161/85 143/81 145/86 O2 Sat by Pulse 96 95 93 Oximetry 06/30/22 06/30/22 06/30/22 02:00 03:00 04:00 Temperature 98.8 F Pulse Rate 78 76 72 Respiratory 20 20 21 Rate Blood Pressure 142/83 151/80 140/73 O2 Sat by Pulse 94 94 98 Oximetry 06/30/22 06/30/22 06/30/22 04:29 05:00 06:00 Temperature 98.8 F Pulse Rate 68 70 Respiratory 19 18 Rate Blood Pressure 142/73 159/73 O2 Sat by Pulse 98 96 Oximetry 06/30/22 08:22 Temperature Pulse Rate Respiratory Rate Blood Pressure O2 Sat by Pulse 98 Oximetry General appearance: Present: no acute distress, obese - EENT Eyes: EOM intact ENT: hearing intact - Neck Neck: normal ROM - Respiratory Respiratory effort: normal Extremities: abnormal Extremity abnormal: edema - Gastrointestinal General gastrointestinal: Present: deferred Rectal Exam: deferred - Genitourinary Female genitourinary: deferred - Psychiatric Psychiatric: cooperative - Labs CBC & Chem 7: 06/30/22 05:27 06/30/22 05:25 Labs: Abnormal lab results 06/28/22 06/29/22 06/29/22 Range/Units 08:10 09:28 10:35 Heparin Anti-Xa Level (0.3-0.7) U.I./ml Sodium (137-145) mmol/L Potassium (3.6-5.0) mmol/L Chloride (98-107) mmol/L Carbon Dioxide (22-30) mmol/L BUN (7-17) mg/dL Creatinine (0.6-1.2) mg/dL Glucose (65-100) mg/dL POC Glucose 167 H 152 H (70-105) mg/dL Calcium (8.4-10.2) mg/dL Phosphorus (2.5-4.5) mg/dL Urine Total Protein 49 H (5-11.8) mg/dL 06/29/22 06/29/22 06/29/22 Range/Units 10:47 11:30 12:33 Heparin Anti-Xa Level (0.3-0.7) U.I./ml Sodium 131 L (137-145) mmol/L Potassium (3.6-5.0) mmol/L Chloride 94.4 L (98-107) mmol/L Carbon Dioxide 15 L (22-30) mmol/L BUN 59 H (7-17) mg/dL Creatinine 2.2 H (0.6-1.2) mg/dL Glucose 149 H (65-100) mg/dL POC Glucose 134 H 146 H (70-105) mg/dL Calcium (8.4-10.2) mg/dL Phosphorus 5.80 H (2.5-4.5) mg/dL Urine Total Protein (5-11.8) mg/dL 06/29/22 06/29/22 06/29/22 Range/Units 13:28 14:33 15:49 Heparin Anti-Xa Level (0.3-0.7) U.I./ml Sodium (137-145) mmol/L Potassium (3.6-5.0) mmol/L Chloride (98-107) mmol/L Carbon Dioxide (22-30) mmol/L BUN (7-17) mg/dL Creatinine (0.6-1.2) mg/dL Glucose (65-100) mg/dL POC Glucose 170 H 188 H 155 H (70-105) mg/dL Calcium (8.4-10.2) mg/dL Phosphorus (2.5-4.5) mg/dL Urine Total Protein (5-11.8) mg/dL 06/29/22 06/29/22 06/29/22 Range/Units 16:14 16:14 16:45 Heparin Anti-Xa Level 0.19 L (0.3-0.7) U.I./ml Sodium 128 L (137-145) mmol/L Potassium (3.6-5.0) mmol/L Chloride 95.8 L (98-107) mmol/L Carbon Dioxide 15 L (22-30) mmol/L BUN 52 H (7-17) mg/dL Creatinine 1.8 H (0.6-1.2) mg/dL Glucose 138 H (65-100) mg/dL POC Glucose 135 H (70-105) mg/dL Calcium 7.9 L (8.4-10.2) mg/dL Phosphorus (2.5-4.5) mg/dL Urine Total Protein (5-11.8) mg/dL 06/29/22 06/29/22 06/29/22 Range/Units 17:47 18:52 20:14 Heparin Anti-Xa Level (0.3-0.7) U.I./ml Sodium (137-145) mmol/L Potassium (3.6-5.0) mmol/L Chloride (98-107) mmol/L Carbon Dioxide (22-30) mmol/L BUN (7-17) mg/dL Creatinine (0.6-1.2) mg/dL Glucose (65-100) mg/dL POC Glucose 150 H 123 H 155 H (70-105) mg/dL Calcium (8.4-10.2) mg/dL Phosphorus (2.5-4.5) mg/dL Urine Total Protein (5-11.8) mg/dL 06/29/22 06/29/22 06/29/22 Range/Units 20:17 21:11 21:53 Heparin Anti-Xa Level (0.3-0.7) U.I./ml Sodium 131 L (137-145) mmol/L Potassium 5.5 H D (3.6-5.0) mmol/L Chloride (98-107) mmol/L Carbon Dioxide 15 L (22-30) mmol/L BUN 56 H (7-17) mg/dL Creatinine 2.0 H (0.6-1.2) mg/dL Glucose 146 H (65-100) mg/dL POC Glucose 152 H 165 H (70-105) mg/dL Calcium (8.4-10.2) mg/dL Phosphorus 5.20 H (2.5-4.5) mg/dL Urine Total Protein (5-11.8) mg/dL 06/29/22 06/30/22 06/30/22 Range/Units 23:07 00:18 00:58 Heparin Anti-Xa Level (0.3-0.7) U.I./ml Sodium (137-145) mmol/L Potassium (3.6-5.0) mmol/L Chloride (98-107) mmol/L Carbon Dioxide (22-30) mmol/L BUN (7-17) mg/dL Creatinine (0.6-1.2) mg/dL Glucose (65-100) mg/dL POC Glucose 163 H 178 H 189 H (70-105) mg/dL Calcium (8.4-10.2) mg/dL Phosphorus (2.5-4.5) mg/dL Urine Total Protein (5-11.8) mg/dL 06/30/22 06/30/22 06/30/22 Range/Units 01:57 02:59 03:53 Heparin Anti-Xa Level (0.3-0.7) U.I./ml Sodium (137-145) mmol/L Potassium (3.6-5.0) mmol/L Chloride (98-107) mmol/L Carbon Dioxide (22-30) mmol/L BUN (7-17) mg/dL Creatinine (0.6-1.2) mg/dL Glucose (65-100) mg/dL POC Glucose 150 H 147 H 122 H (70-105) mg/dL Calcium (8.4-10.2) mg/dL Phosphorus (2.5-4.5) mg/dL Urine Total Protein (5-11.8) mg/dL 06/30/22 06/30/22 06/30/22 Range/Units 04:56 05:25 05:52 Heparin Anti-Xa Level (0.3-0.7) U.I./ml Sodium 132 L (137-145) mmol/L Potassium (3.6-5.0) mmol/L Chloride (98-107) mmol/L Carbon Dioxide 15 L (22-30) mmol/L BUN 53 H (7-17) mg/dL Creatinine 1.7 H (0.6-1.2) mg/dL Glucose 137 H (65-100) mg/dL POC Glucose 110 H 150 H (70-105) mg/dL Calcium (8.4-10.2) mg/dL Phosphorus (2.5-4.5) mg/dL Urine Total Protein (5-11.8) mg/dL Medications & Allergies - Medications Allergies/Adverse Reactions: Allergies ciprofloxacin [From Cipro] Allergy (Verified 05/28/22 12:07) Unknown Penicillins Allergy (Verified 05/28/22 12:07) Unknown Home Medications: Home Medications Medication Instructions Recorded Confirmed Last Taken Type Apixaban [Eliquis] 5 mg PO BID 04/13/21 06/28/22 Unknown History Empagliflozin [Jardiance] 25 mg DAILY 04/13/21 06/28/22 Unknown History Fenofibrate 160 mg PO DAILY 04/13/21 06/28/22 Unknown History Glimepiride 4 mg BID 04/13/21 06/28/22 Unknown History Insulin Aspart (Nf) [NovoLOG 100 unit SQ PRN PRN 04/13/21 06/28/22 Unknown History Flexpen] Levothyroxine [Synthroid] 112 mcg PO QAM 04/13/21 06/28/22 Unknown History Lisinopril/Hydrochlorothiazide 1 tab PO QDAY 04/13/21 06/28/22 Unknown History [Zestoretic 20-12.5 mg] [place] Carbonate 600 mg PO QHS 04/13/21 06/28/22 Unknown History Ubly Carbonate [Eskalith] 150 mg PO QAM 04/13/21 06/28/22 Unknown History Lurasidone [Latuda] 40 mg QHS 04/13/21 06/28/22 Unknown History Oxybutynin Chloride [Ditropan Xl] 15 mg PO QDAY 04/13/21 06/28/22 Unknown History Semaglutide [Ozempic] 1 unit SQ 1XW 04/13/21 06/28/22 Unknown History Venlafaxine HCl [Venlafaxine HCl 150 mg DAILY 04/13/21 06/28/22 Unknown History ER] buPROPion SR [Wellbutrin SR] 100 mg PO DAILY 04/13/21 06/28/22 Unknown History Doxycycline Hyclate [Doxycycline 100 mg PO Q12HR 7 Days #14 04/14/21 06/28/22 Unknown Rx Hyclate TAB] Active Medications: Generic Name Dose Route Start Last Admin Trade Name Freq PRN Reason Stop Dose Admin Acetaminophen 650 mg 06/28/22 03:09 Acetaminophen 325 Mg Tab PO Q6H PRN Pain MILD(1-3)/Fever >100.5/MURILLO Dextrose 50 ml 06/30/22 09:00 Dextrose 50% In Water (25gm) 50 Ml Syringe IV Q30MIN PRN Hypoglycemia Protocol Famotidine 20 mg 06/29/22 10:00 06/29/22 11:47 Famotidine 20 Mg Tab PO Not Given QDAY [facility] Heparin Sodium (Porcine) 5,000 unit 06/28/22 14:29 Heparin Prn Bolus(Standard Intensity Drip) 40 unit/kg (5000 unit) IV Q6H PRN For Heparin Anti-Xa < 0.1 Insulin Human Regular 100 100 mls @ 1 mls/hr 06/27/22 23:45 06/30/22 09:20 units/ Sodium Chloride IV 06/30/22 12:00 4 units/hr TITR SHANTHI 4 mls/hr Titration Protocol 1 UNITS/HR Heparin Sodium/Sodium Chloride 25,000 unit in 250 mls @ 13.66 mls/hr 06/28/22 15:00 06/30/22 00:31 Heparin/ 0.45% Nacl-25,000 Unit/250 Ml IV 12 units/kg/hr TITR SHANTHI 16.392 mls/hr Administration Protocol 10 UNITS/KG/HR Dextrose/Sodium Chloride 1,000 mls @ 100 mls/hr 06/28/22 17:00 06/30/22 06:43 D5ns IV 06/30/22 12:00 100 mls/hr DIRECT SHANTHI Administration Insulin Glargine 30 units 06/30/22 10:00 06/30/22 09:24 Insulin Glargine 100 Units/Ml SUB-Q 30 units BID SHANTHI Administration Insulin Human Regular 0 units 06/30/22 11:30 Insulin Regular, Human 100 Units/1 Ml SUB-Q ACHS SHANTHI Protocol Morphine Sulfate 2 mg 06/28/22 03:09 06/28/22 18:06 Morphine 2 Mg/1 Ml Inj IV 2 mg Q4H PRN Administration Pain, Moderate (4-6) Ondansetron HCl 4 mg 06/28/22 03:09 06/28/22 05:44 Ondansetron 4 Mg/2 Ml Inj IV 4 mg Q8H PRN Administration Nausea And Vomiting Sodium Bicarbonate 50 meq 06/30/22 08:05 06/30/22 09:22 Sodium Bicarb 8.4% 50 Meq/50 Ml Syringe IV 06/30/22 12:00 50 meq ONCE SHANTHI Administration Sodium Chloride 10 ml 06/28/22 10:00 06/30/22 09:25 Sodium Chloride 0.9% 10 Ml Flush Syringe IV 10 ml BID SHANTHI Administration Sodium Chloride 10 ml 06/28/22 03:09 Sodium Chloride 0.9% 10 Ml Flush Syringe IV PRN PRN LINE FLUSH HEART Score - HEART Score Troponin: Troponin T 0.080 ng/mL (0.00-0.029) H 06/27/22 20:48
[2022-06-30] MEDS ORDERED: INSULIN GLARGINE 100 UNITS/ML SUB-Q SCH (10:00)
[2022-06-30] MEDS: FAMOTIDINE 20 MG TAB PO SCH (10:27)
--- NOTE | 2022-06-30 10:51 | Progress Note ---
Assessment and Plan 1. Acute kidney injury: Suspect vasomotor STEFFANIE in the setting of DKA/volume depletion. Renal US negative for hydro/stone. Baseline renal function unknown. Monitor renal function. Creatinine level improving. Avoid nephrotoxic agents. Meds dosage based on GFR. 2. FEN: Hyperkalemia, improved. Anion-gap Metabolic acidosis, 2/2 DKA, monitor. Replete lytes as needed. Monitor lytes and volume status. 3. DKA: Admits to stop taking meds at home. Insulin drip, per protocol. Monitor. 4. Acute DVT involving the external iliac veins bilaterally with thrombus extending distally bilaterally: Heparin drip. Followed by Vascular. 5. Hypertension: Monitor BP. 6. H/o COPD. Subjective: Patient was seen and examined at the bedside. Examination: General appearance: well-developed, obese, appears stated age, no distress HEENT: atraumatic, SANDRA, no icterus Neck: trachea midline Respiratory: ctab Heart: S1S2, regular, no murmur Abdomen: soft, obese, bowel sounds heard, NT Integumentary: LE stasis changes, toes are dusky in color Neurologic: slowed mentation, conversing, generalized weakness Ext: trace Ext and dependent edema Subjective Date of service: 06/30/22 Principal diagnosis: AHRF; DKA; Hyperkalemia; COPD; ? cellulitis; PVD; STEFFANIE; Morbid obesity; ?JACKLYN Objective - Vital Signs Vital signs: Vital Signs - 12hr 06/29/22 06/29/22 06/30/22 23:00 23:34 00:00 Temperature 99.3 F 99.3 F Pulse Rate 84 83 77 Pulse Rate [ From Monitor] Pulse Rate [ Left Dorsalis Pedis] Pulse Rate [ Right Dorsalis Pedis] Respiratory 19 14 19 Rate Blood Pressure 161/85 161/85 143/81 O2 Sat by Pulse 97 96 95 Oximetry 06/30/22 06/30/22 06/30/22 01:00 02:00 03:00 Temperature Pulse Rate 82 78 76 Pulse Rate [ From Monitor] Pulse Rate [ Left Dorsalis Pedis] Pulse Rate [ Right Dorsalis Pedis] Respiratory 17 20 20 Rate Blood Pressure 145/86 142/83 151/80 O2 Sat by Pulse 93 94 94 Oximetry 06/30/22 06/30/22 06/30/22 04:00 04:29 05:00 Temperature 98.8 F 98.8 F Pulse Rate 72 68 Pulse Rate [ From Monitor] Pulse Rate [ Left Dorsalis Pedis] Pulse Rate [ Right Dorsalis Pedis] Respiratory 21 19 Rate Blood Pressure 140/73 142/73 O2 Sat by Pulse 98 98 Oximetry 06/30/22 06/30/22 06/30/22 06:00 07:00 08:00 Temperature 98.8 F Pulse Rate 70 71 69 Pulse Rate [ 69 From Monitor] Pulse Rate [ 66 Left Dorsalis Pedis] Pulse Rate [ 66 Right Dorsalis Pedis] Respiratory 18 20 19 Rate Blood Pressure 159/73 146/75 143/74 O2 Sat by Pulse 96 97 97 Oximetry 06/30/22 06/30/22 08:22 09:00 Temperature Pulse Rate 69 Pulse Rate [ From Monitor] Pulse Rate [ Left Dorsalis Pedis] Pulse Rate [ Right Dorsalis Pedis] Respiratory 20 Rate Blood Pressure 156/73 O2 Sat by Pulse 98 97 Oximetry - Lab 06/30/22 05:27 06/30/22 10:59 Most recent lab results Calcium 8.7 mg/dL (8.4-10.2) 06/30/22 05:25 Phosphorus 4.20 mg/dL (2.5-4.5) 06/30/22 05:25 Magnesium 2.20 mg/dL (1.7-2.3) 06/30/22 05:25 Urine Creatinine 85.4 mg/dL (0.1-20.0) H 06/28/22 08:10 Urine Sodium 10 mmol/L 06/28/22 08:10 Urine Total Protein 49 mg/dL (5-11.8) H 06/28/22 08:10 Medications & Allergies - Medications Allergies/Adverse Reactions: Allergies ciprofloxacin [From Cipro] Allergy (Verified 05/28/22 12:07) Unknown Penicillins Allergy (Verified 05/28/22 12:07) Unknown Home Medications: Home Medications Medication Instructions Recorded Confirmed Last Taken Type Apixaban [Eliquis] 5 mg PO BID 04/13/21 06/28/22 Unknown History Empagliflozin [Jardiance] 25 mg DAILY 04/13/21 06/28/22 Unknown History Fenofibrate 160 mg PO DAILY 04/13/21 06/28/22 Unknown History Glimepiride 4 mg BID 04/13/21 06/28/22 Unknown History Insulin Aspart (Nf) [NovoLOG 100 unit SQ PRN PRN 04/13/21 06/28/22 Unknown History Flexpen] Levothyroxine [Synthroid] 112 mcg PO QAM 04/13/21 06/28/22 Unknown History Lisinopril/Hydrochlorothiazide 1 tab PO QDAY 04/13/21 06/28/22 Unknown History [Zestoretic 20-12.5 mg] [place] Carbonate 600 mg PO QHS 04/13/21 06/28/22 Unknown History [place] Carbonate [Eskalith] 150 mg PO QAM 04/13/21 06/28/22 Unknown History Lurasidone [Latuda] 40 mg QHS 04/13/21 06/28/22 Unknown History Oxybutynin Chloride [Ditropan Xl] 15 mg PO QDAY 04/13/21 06/28/22 Unknown History Semaglutide [Ozempic] 1 unit SQ 1XW 04/13/21 06/28/22 Unknown History Venlafaxine HCl [Venlafaxine HCl 150 mg DAILY 04/13/21 06/28/22 Unknown History ER] buPROPion SR [Wellbutrin SR] 100 mg PO DAILY 04/13/21 06/28/22 Unknown History Doxycycline Hyclate [Doxycycline 100 mg PO Q12HR 7 Days #14 04/14/21 06/28/22 Un known Rx Hyclate TAB] Active Medications: Generic Name Dose Route Start Last Admin Trade Name Freq PRN Reason Stop Dose Admin Acetaminophen 650 mg 06/28/22 03:09 Acetaminophen 325 Mg Tab PO Q6H PRN Pain MILD(1-3)/Fever >100.5/MURILLO Dextrose 50 ml 06/30/22 09:00 Dextrose 50% In Water (25gm) 50 Ml Syringe IV Q30MIN PRN Hypoglycemia Protocol Famotidine 20 mg 06/29/22 10:00 06/30/22 10:27 Famotidine 20 Mg Tab PO 20 mg QDAY SHANTHI Administration Heparin Sodium (Porcine) 5,000 unit 06/28/22 14:29 Heparin Prn Bolus(Standard Intensity Drip) 40 unit/kg (5000 unit) IV Q6H PRN For Heparin Anti-Xa < 0.1 Insulin Human Regular 100 100 mls @ 1 mls/hr 06/27/22 23:45 06/30/22 10:22 units/ Sodium Chloride IV 06/30/22 12:00 6 units/hr TITR SHANTHI 6 mls/hr Titration Protocol 1 UNITS/HR Heparin Sodium/Sodium Chloride 25,000 unit in 250 mls @ 13.66 mls/hr 06/28/22 15:00 06/30/22 00:31 Heparin/ 0.45% Nacl-25,000 Unit/250 Ml IV 12 units/kg/hr TITR SHANTHI 16.392 mls/hr Administration Protocol 10 UNITS/KG/HR Dextrose/Sodium Chloride 1,000 mls @ 100 mls/hr 06/28/22 17:00 06/30/22 06:43 D5ns IV 06/30/22 12:00 100 mls/hr DIRECT SHANTHI Administration Insulin Glargine 30 units 06/30/22 10:00 06/30/22 09:24 Insulin Glargine 100 Units/Ml SUB-Q 30 units BID SHANTHI Administration Insulin Human Regular 0 units 06/30/22 11:30 Insulin Regular, Human 100 Units/1 Ml SUB-Q ACHS SHANTHI Protocol Morphine Sulfate 2 mg 06/28/22 03:09 06/28/22 18:06 Morphine 2 Mg/1 Ml Inj IV 2 mg Q4H PRN Administration Pain, Moderate (4-6) Ondansetron HCl 4 mg 06/28/22 03:09 06/28/22 05:44 Ondansetron 4 Mg/2 Ml Inj IV 4 mg Q8H PRN Administration Nausea And Vomiting Sodium Bicarbonate 50 meq 06/30/22 08:05 06/30/22 09:22 Sodium Bicarb 8.4% 50 Meq/50 Ml Syringe IV 06/30/22 12:00 50 meq ONCE SHANTHI Administration Sodium Chloride 10 ml 06/28/22 10:00 06/30/22 09:25 Sodium Chloride 0.9% 10 Ml Flush Syringe IV 10 ml BID SHANTHI Administration Sodium Chloride 10 ml 06/28/22 03:09 Sodium Chloride 0.9% 10 Ml Flush Syringe IV PRN PRN LINE FLUSH
--- NOTE | 2022-06-30 11:56 | Progress Note ---
<WILDA MURRAY - Last Filed: 06/30/22 17:10> Assessment and Plan Assessment and plan: This is a 52-year-old female with known past medical history of type 2 diabetes mellitus, hypertension, Nicotine dependence, COPD, PE/DVT was on Eliquis at home, medical noncompliance, and bipolar disorder admitted for DKA and STEFFANIE Hospital Course to Date: 06/28: Mentation improved, denied any abdominal pain, no nausea/vomiting. BG and anio gap still elevated. Continue insulin gtt and IVF resuscitation per protocol. Monitor and replace electrolytes as needed, serial Labs ordered. Transition to subQ once gap is closed. BLE ischemia noted, extremities are purple and cool to touch, palpable pedal pulses appreciated. Patient reported that she has a history of PE/DVT on Eliquis but she admitted that she has not been complaints with any of her medications for 3 days. 06/29: Anion Gap still greater than 20, and CO2 15 this am. 1amp of bcarb given, continue Insulin gtt and IVF resuscitation per protocol. repeat BMP ordered, will transition to subQ once gap is closed. BLE doppler noted with extensive BLE DVT, patient remains on the heparin gtt. Patient reported she was on PO Eliquis at home and had a IVF filter placed. Vascular Surgery is also following, appreciate recommendations. Hyponatremia improving, appreciate Nephrology's recs. 06/30: Remains stable. Still on the DKA protocol, BG level has been less than 200s for over 24hrs, anion gap still in the 20s this am, probably due to STEFFANIE. Will transition patient to Subq insulin. Patient remains on the heparin gtt. BLE is unchanged, CHRISTOPHER pascual applied. Per vascular Surgery, possible interventions/thrombectomy once the patient is stabilized. #Diabetic Ketoacidosis(DKA) #Uncontrolled Type 2 Diabetes Mellitus #Acute Metabolic Encephalopathy #H/O COPD #Tobacco Dependence #Hypertension #Leukocytosis- most likely due to DKA #Acute Kidney Injury(STEFFANIE) most likely Vasomotor Nephropathy #Hyponatremia #Hyperkalemia #BLE Ischemia #Current Extensive DVT in BLE- on Heparin gtt per protocol #History of DVT/PE on Eliquis at Home- S/p IVC Filter #Medical Noncompliance #Bipolar Disorder Plan: - Transition to SubQ insulin - Consistent Carbs diet - Lantus BID and SSI and BG check ACHS - Continue 1/2NS at 75ml/hr for hyponatremia - Nephrology consulted, appreciate recommendations - Heparin gtt initiated per protocol - Vascular Surgery consulted, appreciate recommendations - Per vascular Surgery, possible interventions/thrombectomy once the patient is stabilized - Strict intake and output - Avoid nephrotoxic medications; Renally dose medications - Monitor and replace electrolytes as needed, Monitor anion gap, serial Labs ordered. - PRN O2 supplementation, SPO2 goal above 92% - Continue blood pressure monitor per protocol, maintain SBP less than 160 - Smoking cessation provided. Patient verbalized understanding and agreed with current information - Resume home medications once list is available - Avoid benzodiazepine to reduce the possibility of delirium - PRN Analgesia for pain control - PRN Antiemetic for nausea vomiting - Maintenance of sleep-wake cycle - Mental Health/Psych Consult - GI/DVT Prophylaxis #Advance Care Planning - Disease education data, care plan, diagnoses, and prognosis were discussed with patient at the bedside. Patient is a FULL code. Patient acknowledged understanding and agreed with current care plan. The high probability of a clinically significant, sudden or life threatening deterioration of the [multiple] system(s) required my full and direct attention, intervention and personal management. The aggregate critical care time was [60] minutes. This time is in addition to time spent performing reported procedures but includes the following: [x] Data Review and interpretation [x] Patient assessment and monitoring of vital signs [x] Documentation [x] Medication orders and management Disposition Plan: ICU Total Time Spent with Patient (Minutes): 60 History Interval history: Patient seen and examined at the bedside. Remains stable on RA, VSS. Voiced that she she hungry and want to eat. Still on the DKA protocol. BLE ischemia is un changed with palpable pedal pulses. CHRISTOPHER Hose applied per Vascular Surgery. KARINA overnight Hospitalist Physical - Physical exam Narrative exam: General appearance: Present: no acute distress, well-nourished, obese - EENT Eyes: Present: PERRL, EOM intact ENT: hearing intact - Neck Neck: Present: normal ROM - Respiratory Respiratory effort: normal Respiratory: bilateral: diminished - Cardiovascular Rhythm: regular Heart Sounds: Present: S1 & S2 - Extremities Extremities: no ischemia, pulses intact, pulses symmetrical, abnormal (BLE ischemia) Extremity abnormal: edema, cold (BLE ), other (Discolored) - Peripheral Assessment Generalized Edema Type: Non-pitting Edema Degree: 3+ Capillary Refill: > 3 seconds Skin Temperature: Cool Peripheral Pulses: within normal limits - Abdominal General gastrointestinal: soft, non-distended, normal bowel sounds, other (Obese) - Integumentary Integumentary: Present: erythema (BLE, cool to touch) - Psychiatric Psychiatric: appropriate mood/affect, cooperative - Neurologic Neurologic: moves all extremities - Allied Health Allied health notes reviewed: nursing, case management - Constitutional Vitals: Temp Pulse Resp BP Pulse Ox 98.8 F 69 20 156/73 97 06/30/22 08:00 06/30/22 09:00 06/30/22 09:00 06/30/22 09:00 06/30/22 09:00 HEART Score - HEART Score Troponin: Troponin T 0.080 ng/mL (0.00-0.029) H 06/27/22 20:48 Results - Labs CBC & Chem 7: 06/30/22 05:27 06/30/22 05:25 Labs: Laboratory Last Values WBC 8.7 K/mm3 (4.5-11.0) 06/30/22 05:27 RBC 4.58 M/mm3 (3.65-5.03) 06/30/22 05:27 Hgb 13.9 gm/dl (10.1-14.3) 06/30/22 05:27 Hct 42.4 % (30.3-42.9) 06/30/22 05:27 MCV 93 fl (79-97) 06/30/22 05:27 MCH 31 pg (28-32) 06/30/22 05:27 MCHC 33 % (30-34) 06/30/22 05:27 RDW 14.3 % (13.2-15.2) 06/30/22 05:27 Plt Count 172 K/mm3 (140-440) 06/30/22 05:27 Lymph % (Auto) 6.3 % (13.4-35.0) L 06/27/22 20:48 Perry % (Auto) 4.8 % (0.0-7.3) 06/27/22 20:48 Eos % (Auto) 0.0 % (0.0-4.3) 06/27/22 20:48 Baso % (Auto) 0.3 % (0.0-1.8) 06/27/22 20:48 Lymph # (Auto) 1.2 K/mm3 (1.2-5.4) 06/27/22 20:48 Perry # (Auto) 0.9 K/mm3 (0.0-0.8) H 06/27/22 20:48 Eos # (Auto) 0.0 K/mm3 (0.0-0.4) 06/27/22 20:48 Baso # (Auto) 0.1 K/mm3 (0.0-0.1) 06/27/22 20:48 Seg Neutrophils % 88.6 % (40.0-70.0) H 06/27/22 20:48 Seg Neutrophils # 16.5 K/mm3 (1.8-7.7) H 06/27/22 20:48 PT 19.6 Sec. (12.2-14.9) H 06/28/22 15:07 INR 1.47 (0.87-1.13) H 06/28/22 15:07 APTT 30.3 Sec. (24.2-36.6) 06/28/22 15:07 Heparin Anti-Xa Level 0.51 U.I./ml (0.3-0.7) 06/30/22 05:25 Sodium 132 mmol/L (137-145) L 06/30/22 05:25 Potassium 4.0 mmol/L (3.6-5.0) D 06/30/22 05:25 Chloride 99.8 mmol/L (98-107) 06/30/22 05:25 Carbon Dioxide 15 mmol/L (22-30) L 06/30/22 05:25 Anion Gap 21 mmol/L 06/30/22 05:25 BUN 53 mg/dL (7-17) H 06/30/22 05:25 Creatinine 1.7 mg/dL (0.6-1.2) H 06/30/22 05:25 Estimated GFR 32 ml/min 06/30/22 05:25 BUN/Creatinine Ratio 31 % 06/30/22 05:25 Glucose 137 mg/dL (65-100) H 06/30/22 05:25 POC Glucose 150 mg/dL (70-105) H 06/30/22 05:52 Hemoglobin A1c 9.7 % (4-6) H 06/28/22 20:31 Lactic Acid 1.90 mmol/L (0.7-2.0) 06/29/22 10:47 Calcium 8.7 mg/dL (8.4-10.2) 06/30/22 05:25 Phosphorus 4.20 mg/dL (2.5-4.5) 06/30/22 05:25 Magnesium 2.20 mg/dL (1.7-2.3) 06/30/22 05:25 Total Bilirubin 0.90 mg/dL (0.1-1.2) 06/27/22 20:48 AST 50 units/L (5-40) H 06/27/22 20:48 ALT 28 units/L (7-56) 06/27/22 20:48 Alkaline Phosphatase 97 units/L (35-129) 06/27/22 20:48 Troponin T 0.080 ng/mL (0.00-0.029) H 06/27/22 20:48 NT-Pro-B Natriuret Pep 4137 pg/mL (0-900) H 06/27/22 20:48 Total Protein 7.0 g/dL (6.3-8.2) 06/27/22 20:48 Albumin 3.1 g/dL (3.9-5) L 06/27/22 20:48 Albumin/Globulin Ratio 0.8 % 06/27/22 20:48 Triglycerides 349 mg/dL (2-149) H 06/27/22 20:48 Cholesterol 156 mg/dL (50-199) 06/27/22 20:48 LDL Cholesterol Direct 37 mg/dL (50-130) L 06/27/22 20:48 HDL Cholesterol 38 mg/dL (40-59) L 06/27/22 20:48 Cholesterol/HDL Ratio 4.10 % 06/27/22 20:48 Procalcitonin 2.51 ng/mL (<0.15) 06/29/22 10:47 PTH Intact 382.4 pg/mL (15-65) H 06/29/22 04:21 Urine Creatinine 85.4 mg/dL (0.1-20.0) H 06/28/22 08:10 Protein/Creatinin Ratio 0.57 06/28/22 08:10 Urine Sodium 10 mmol/L 06/28/22 08:10 Urine Total Protein 49 mg/dL (5-11.8) H 06/28/22 08:10 Tian/IV: Voiding Method External Female Catheter Active Medications - Current Medications Current Medications: Generic Name Dose Route Start Last Admin Trade Name Freq PRN Reason Stop Dose Admin Acetaminophen 650 mg 06/28/22 03:09 Acetaminophen 325 Mg Tab PO Q6H PRN Pain MILD(1-3)/Fever >100.5/MURILLO Dextrose 50 ml 06/30/22 09:00 Dextrose 50% In Water (25gm) 50 Ml Syringe IV Q30MIN PRN Hypoglycemia Protocol Famotidine 20 mg 06/29/22 10:00 06/30/22 10:27 Famotidine 20 Mg Tab PO 20 mg QDAY SHANTHI Administration Heparin Sodium (Porcine) 5,000 unit 06/28/22 14:29 Heparin Prn Bolus(Standard Intensity Drip) 40 unit/kg (5000 unit) IV Q6H PRN For Heparin Anti-Xa < 0.1 Insulin Human Regular 100 100 mls @ 1 mls/hr 06/27/22 23:45 06/30/22 11:54 units/ Sodium Chloride IV 06/30/22 12:00 0 units/hr TITR SHANTHI 0 mls/hr Titration Protocol 1 UNITS/HR Heparin Sodium/Sodium Chloride 25,000 unit in 250 mls @ 13.66 mls/hr 06/28/22 15:00 06/30/22 00:31 Heparin/ 0.45% Nacl-25,000 Unit/250 Ml IV 12 units/kg/hr TITR SHANTHI 16.392 mls/hr Administration Protocol 10 UNITS/KG/HR Dextrose/Sodium Chloride 1,000 mls @ 100 mls/hr 06/28/22 17:00 06/30/22 06:43 D5ns IV 06/30/22 12:00 100 mls/hr DIRECT SHANTHI Administration Insulin Glargine 30 units 06/30/22 10:00 06/30/22 09:24 Insulin Glargine 100 Units/Ml SUB-Q 30 units BID SHANTHI Administration Insulin Human Regular 0 units 06/30/22 11:30 Insulin Regular, Human 100 Units/1 Ml SUB-Q ACHS SHANTHI Protocol Morphine Sulfate 2 mg 06/28/22 03:09 06/28/22 18:06 Morphine 2 Mg/1 Ml Inj IV 2 mg Q4H PRN Administration Pain, Moderate (4-6) Ondansetron HCl 4 mg 06/28/22 03:09 06/28/22 05:44 Ondansetron 4 Mg/2 Ml Inj IV 4 mg Q8H PRN Administration Nausea And Vomiting Sodium Bicarbonate 50 meq 06/30/22 08:05 06/30/22 09:22 Sodium Bicarb 8.4% 50 Meq/50 Ml Syringe IV 06/30/22 12:00 50 meq ONCE SHANTHI Administration Sodium Chloride 10 ml 06/28/22 10:00 06/30/22 09:25 Sodium Chloride 0.9% 10 Ml Flush Syringe IV 10 ml BID SHANTHI Administration Sodium Chloride 10 ml 06/28/22 03:09 Sodium Chloride 0.9% 10 Ml Flush Syringe IV PRN PRN LINE FLUSH Nutrition/Malnutrition Assess - Dietary Evaluation Nutrition/Malnutrition Findings: Nutrition Notes Start: 06/28/22 11:39 Freq: Status: Active Protocol: Document 06/28/22 11:39 CHRISTAL (Rec: 06/28/22 11:49 CHRISTAL [email or web address]) Nutrition Notes Need for Assessment generated from: MD Order,Education Initial or Follow up Assessment Current Diagnosis Acute Kidney Injury,COPD, Diabetes,Hypertension Other Pertinent Diagnosis DKA, Hyperglycemia, SOB, Nausea, Hyperkalemia, Hyponatremia,... Current Diet NPO (since 06/28 03:11). Labs/Tests 06/28: Na 125, K 5.4, Cl 87.6, CO2 18, BUN 58, Crea 2.5, Glu 199, Phos 6.9. Pertinent Medications 06/28: D5/0.45ns @ 125ml/hr, Insulin 4U, others nutritionally unremarkable. 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 Weight Status Morbidly Obese Subjective/Other Information RD consult for nutrition education and skin risk assessments. Pt is currently on NPO. Pt is on Nasal Cannula, O2 saturation @ 98%, according to Vital Signs notes. Pt still in critical condition , not a candidate for Nutrition Education at the time, will assess feasibility on F/U. Pt presents Bilateral LE redness/echimosis as sign of concern for skin risk at the time, according to Physical Assessment History notes. Percent of energy/protein needs met: Pt is on NPO. When pertinent, start with modified Consistent Carbohydrates -Renal- Diet, which provides for energy/ protein needs (2,061 Kcal/91 g ) during LOS. Burn Absent Trauma Absent GI Symptoms Nausea Food Allergy No Skin Integrity/Comment Bilateral LE redness/echimosis . Minimum of two criteria No Fluid Accumulation N/A Reduced Public Relations Supervisor Strength N/A (non-severe) Protein-Calorie Malnutrition N\A #1 Nutrition Diagnosis Overweight/obesity Etiology Possibly associated with lifestyle. As Evidenced by Signs and Symptoms BMI: 51.7 Kg/m2. Is patient on ventilator? No Is Patient Ambulatory and/or Out of Bed No REE-([place]-[facility]-confined to bed) 2356.548 Kcal/Kg value to use for calculation 11 Approximate Energy Requirements Using 1503 kcal/Kg Calculation Used for Recommendations Kcal/kg Additional Notes Protein: 0.8-1.2 g/Kg AdjBW; 77-115 g/day. Fluids: 1 ml/Kcal, or as per MD. Nutrition Intervention Change Diet Order: When pertinent, start with modified Consistent Carbohydrates -Renal- Diet, advance as tolerated. Goal #1 Adjust the dietary intervention to better serve Pt's energy/protein needs and clinical conditions during LOS . Follow-Up By: 07/02/22 Additional Comments Nutrition education will be provided at F/U, if feasible. When pertinent, start monitoring food tolerance, %PO intake of meals, and BM. <MASON ANDRADE - Last Filed: 07/01/22 12:34> Assessment and Plan Assessment and plan: I saw and evaluated the patient. I agree with the findings and the plan of care as documented in the Nurse Practitioner's~note, with the following corrections and additions. Hospitalist Physical - Constitutional Vitals: Temp Pulse Resp BP Pulse Ox 99.4 F 77 21 153/68 96 07/01/22 07:15 07/01/22 09:00 07/01/22 09:00 07/01/22 09:00 07/01/22 09:00 HEART Score - HEART Score Troponin: Troponin T 0.080 ng/mL (0.00-0.029) H 06/27/22 20:48 Results - Labs CBC & Chem 7: 07/01/22 05:10 07/01/22 05:10 Labs: Laboratory Last Values WBC 6.9 K/mm3 (4.5-11.0) 07/01/22 05:10 RBC 4.55 M/mm3 (3.65-5.03) 07/01/22 05:10 Hgb 13.7 gm/dl (10.1-14.3) 07/01/22 05:10 Hct 42.3 % (30.3-42.9) 07/01/22 05:10 MCV 93 fl (79-97) 07/01/22 05:10 MCH 30 pg (28-32) 07/01/22 05:10 MCHC 33 % (30-34) 07/01/22 05:10 RDW 14.7 % (13.2-15.2) 07/01/22 05:10 Plt Count 179 K/mm3 (140-440) 07/01/22 05:10 Lymph % (Auto) 6.3 % (13.4-35.0) L 06/27/22 20:48 Perry % (Auto) 4.8 % (0.0-7.3) 06/27/22 20:48 Eos % (Auto) 0.0 % (0.0-4.3) 06/27/22 20:48 Baso % (Auto) 0.3 % (0.0-1.8) 06/27/22 20:48 Lymph # (Auto) 1.2 K/mm3 (1.2-5.4) 06/27/22 20:48 Perry # (Auto) 0.9 K/mm3 (0.0-0.8) H 06/27/22 20:48 Eos # (Auto) 0.0 K/mm3 (0.0-0.4) 06/27/22 20:48 Baso # (Auto) 0.1 K/mm3 (0.0-0.1) 06/27/22 20:48 Seg Neutrophils % 88.6 % (40.0-70.0) H 06/27/22 20:48 Seg Neutrophils # 16.5 K/mm3 (1.8-7.7) H 06/27/22 20:48 PT 15.9 Sec. (12.2-14.9) H 07/01/22 09:13 INR 1.14 (0.87-1.13) H 07/01/22 09:13 APTT 30.3 Sec. (24.2-36.6) 06/28/22 15:07 Heparin Anti-Xa Level 0.24 U.I./ml (0.3-0.7) L 07/01/22 05:10 Sodium 132 mmol/L (137-145) L 07/01/22 05:10 Potassium 4.3 mmol/L (3.6-5.0) 07/01/22 05:10 Chloride 97.8 mmol/L (98-107) L 07/01/22 05:10 Carbon Dioxide 19 mmol/L (22-30) L 07/01/22 05:10 Anion Gap 20 mmol/L 07/01/22 05:10 BUN 34 mg/dL (7-17) H 07/01/22 05:10 Creatinine 1.3 mg/dL (0.6-1.2) H 07/01/22 05:10 Estimated GFR 43 ml/min 07/01/22 05:10 BUN/Creatinine Ratio 26 % 07/01/22 05:10 Glucose 250 mg/dL (65-100) H 07/01/22 05:10 POC Glucose 235 mg/dL (70-105) H 07/01/22 07:38 Hemoglobin A1c 9.7 % (4-6) H 06/28/22 20:31 Lactic Acid 1.90 mmol/L (0.7-2.0) 06/29/22 10:47 Calcium 8.5 mg/dL (8.4-10.2) 07/01/22 05:10 Phosphorus 2.80 mg/dL (2.5-4.5) D 07/01/22 05:10 Magnesium 2.30 mg/dL (1.7-2.3) 07/01/22 05:10 Total Bilirubin 0.90 mg/dL (0.1-1.2) 06/27/22 20:48 AST 50 units/L (5-40) H 06/27/22 20:48 ALT 28 units/L (7-56) 06/27/22 20:48 Alkaline Phosphatase 97 units/L (35-129) 06/27/22 20:48 Troponin T 0.080 ng/mL (0.00-0.029) H 06/27/22 20:48 NT-Pro-B Natriuret Pep 4137 pg/mL (0-900) H 06/27/22 20:48 Total Protein 7.0 g/dL (6.3-8.2) 06/27/22 20:48 Albumin 3.1 g/dL (3.9-5) L 06/27/22 20:48 Albumin/Globulin Ratio 0.8 % 06/27/22 20:48 Triglycerides 349 mg/dL (2-149) H 06/27/22 20:48 Cholesterol 156 mg/dL (50-199) 06/27/22 20:48 LDL Cholesterol Direct 37 mg/dL (50-130) L 06/27/22 20:48 HDL Cholesterol 38 mg/dL (40-59) L 06/27/22 20:48 Cholesterol/HDL Ratio 4.10 % 06/27/22 20:48 Procalcitonin 2.51 ng/mL (<0.15) 06/29/22 10:47 PTH Intact 382.4 pg/mL (15-65) H 06/29/22 04:21 Urine Creatinine 85.4 mg/dL (0.1-20.0) H 06/28/22 08:10 Protein/Creatinin Ratio 0.57 06/28/22 08:10 Urine Sodium 10 mmol/L 06/28/22 08:10 Urine Total Protein 49 mg/dL (5-11.8) H 06/28/22 08:10 Tian/IV: Voiding Method External Female Catheter Active Medications - Current Medications Current Medications: Generic Name Dose Route Start Last Admin Trade Name Freq PRN Reason Stop Dose Admin Acetaminophen 650 mg 06/28/22 03:09 Acetaminophen 325 Mg Tab PO Q6H PRN Pain MILD(1-3)/Fever >100.5/MURILLO Dextrose 50 ml 06/30/22 09:00 Dextrose 50% In Water (25gm) 50 Ml Syringe IV Q30MIN PRN Hypoglycemia Protocol Divalproex Sodium 250 mg 06/30/22 20:00 07/01/22 08:[address] 250 Mg Tab PO 250 mg Q6H SHANTHI Administration Famotidine 20 mg 06/29/22 10:00 07/01/22 09:49 Famotidine 20 Mg Tab PO 20 mg QDAY SHANTHI Administration Haloperidol 5 mg 06/30/22 22:00 07/01/22 09:49 Haloperidol 5 Mg Tab PO 5 mg BID SHANTHI Administration Heparin Sodium (Porcine) 5,000 unit 06/28/22 14:29 Heparin Prn Bolus(Standard Intensity Drip) 40 unit/kg (5000 unit) IV Q6H PRN For Heparin Anti-Xa < 0.1 Heparin Sodium/Sodium Chloride 25,000 unit in 250 mls @ 13.66 mls/hr 06/28/22 15:00 07/01/22 08:25 Heparin/ 0.45% Nacl-25,000 Unit/250 Ml IV 13 units/kg/hr TITR SHANTHI 17.758 mls/hr Administration Protocol 10 UNITS/KG/HR Sodium Chloride 1,000 mls @ 75 mls/hr 06/30/22 14:00 06/30/22 22:11 Nacl 0.45% 1000 Ml IV 07/02/22 03:19 75 mls/hr DIRECT SHANTHI Administration Insulin Glargine 35 units 06/30/22 22:00 07/01/22 09:49 Insulin Glargine 100 Units/Ml SUB-Q 35 units BID SHANTHI Administration Insulin Human Regular 0 units 06/30/22 11:30 07/01/22 08:02 Insulin Regular, Human 100 Units/1 Ml SUB-Q 4 units ACHS SHANTHI Administration Protocol Insulin Human Regular 8 units 07/01/22 07:35 07/01/22 08:02 Insulin Regular, Human 100 Units/1 Ml SUB-Q 8 units AC SHANTHI Administration Morphine Sulfate 2 mg 06/28/22 03:09 06/28/22 18:06 Morphine 2 Mg/1 Ml Inj IV 2 mg Q4H PRN Administration Pain, Moderate (4-6) Ondansetron HCl 4 mg 06/28/22 03:09 06/28/22 05:44 Ondansetron 4 Mg/2 Ml Inj IV 4 mg Q8H PRN Administration Nausea And Vomiting Sodium Chloride 10 ml 06/28/22 10:00 07/01/22 10:10 Sodium Chloride 0.9% 10 Ml Flush Syringe IV 10 ml BID SHANTHI Administration Sodium Chloride 10 ml 06/28/22 03:09 Sodium Chloride 0.9% 10 Ml Flush Syringe IV PRN PRN LINE FLUSH Nutrition/Malnutrition Assess - Dietary Evaluation Nutrition/Malnutrition Findings: Nutrition Notes Start: 06/28/22 11:39 Freq: Status: Active Protocol: Document 06/28/22 11:39 CHRISTAL (Rec: 06/28/22 11:49 CHRISTAL [id number]) Nutrition Notes Need for Assessment generated from: MD Order,Education Initial or Follow up Assessment Current Diagnosis Acute Kidney Injury,COPD, Diabetes,Hypertension Other Pertinent Diagnosis DKA, Hyperglycemia, SOB, Nausea, Hyperkalemia, Hyponatremia,... Current Diet NPO (since 06/28 03:11). Labs/Tests 06/28: Na 125, K 5.4, Cl 87.6, CO2 18, BUN 58, Crea 2.5, Glu 199, Phos 6.9. Pertinent Medications 06/28: D5/0.45ns @ 125ml/hr, Insulin 4U, others nutritionally unremarkable. 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 Weight Status Morbidly Obese Subjective/Other Information RD consult for nutrition education and skin risk assessments. Pt is currently on NPO. Pt is on Nasal Cannula, O2 saturation @ 98%, according to Vital Signs notes. Pt still in critical condition , not a candidate for Nutrition Education at the time, will assess feasibility on F/U. Pt presents Bilateral LE redness/echimosis as sign of concern for skin risk at the time, according to Physical Assessment History notes. Percent of energy/protein needs met: Pt is on NPO. When pertinent, start with modified Consistent Carbohydrates -Renal- Diet, which provides for energy/ protein needs (2,061 Kcal/91 g ) during LOS. Burn Absent Trauma Absent GI Symptoms Nausea Food Allergy No Skin Integrity/Comment Bilateral LE redness/echimosis . Minimum of two criteria No Fluid Accumulation N/A Reduced Public Relations Supervisor Strength N/A (non-severe) Protein-Calorie Malnutrition N\A #1 Nutrition Diagnosis Overweight/obesity Etiology Possibly associated with lifestyle. As Evidenced by Signs and Symptoms BMI: 51.7 Kg/m2. Is patient on ventilator? No Is Patient Ambulatory and/or Out of Bed No REE-([place]-confined to bed) 2356.548 Kcal/Kg value to use for calculation 11 Approximate Energy Requirements Using 1503 kcal/Kg Calculation Used for Recommendations Kcal/kg Additional Notes Protein: 0.8-1.2 g/Kg AdjBW; 77-115 g/day. Fluids: 1 ml/Kcal, or as per MD. Nutrition Intervention Change Diet Order: When pertinent, start with modified Consistent Carbohydrates -Renal- Diet, advance as tolerated. Goal #1 Adjust the dietary intervention to better serve Pt's energy/protein needs and clinical conditions during LOS . Follow-Up By: 07/02/22 Additional Comments Nutrition education will be provided at F/U, if feasible. When pertinent, start monitoring food tolerance, %PO intake of meals, and BM.
[2022-06-30] MEDS: INSULIN REGULAR, HUMAN 100 UNITS/1 ML SUB-Q SCH ×3 (12:24→22:12)
[2022-06-30] MEDS: SODIUM CHLORIDE 0.45% 1000 ML 1,000 ML IV SCH ×2 (13:53→22:11)
[2022-06-30 14:01] LABS: Calcium 8.1 mg/dL (8.4-10.2)
[2022-06-30] MEDS ORDERED: INSULIN REGULAR, HUMAN 100 UNITS/1 ML SUB-Q ONE (17:30)
[2022-06-30] MEDS ORDERED: LACTATED RINGERS 500 ML IV ONE (17:30)
--- NOTE | 2022-06-30 19:54 | Progress Note ---
Subjective - Reason for Consult Consult date: 06/30/22 Reason for consult: adjustment for meds for bipolar d/o - Chief Complaint Chief complaint: Shortness of Breath Mental Status Exam - Vital signs Last Vital Signs Temp 99.2 F 06/30/22 19:32 Pulse 73 06/30/22 18:00 Resp 20 06/30/22 18:00 BP 159/76 06/30/22 18:00 Pulse Ox 98 06/30/22 16:00 - Exam Narrative exam: 06/30: Patient seen today. Patient reports she feels like she's getting better. Patient requests to get out of her bed and sit in chair at bedside. Patient reports good mood, okay sleep, and good appetite. Patient denies depressive symptoms or manic symptoms. Patient denies SI HI AVH. Orientation: time, place Affect: normal Mood: appropriate, calm Thought Process: Intact Perceptions: none Speech: normal rate and pattern Concentration: focused Motor activity: normal Level of consciousness: alert Memory: Intact Sleep Symptoms: None Interaction: cooperative, pleasant Assessment and Plan Bipolar disorder - Patient Problems (1) Bipolar disorder Current Visit: Yes Status: Acute Qualifiers: Active/Remission status: in partial remission Plan to address problem: Start latuda 20 mg qd Start Depakote 250 mg q6h Risks, benefits and alternatives of medications discussed with the patient, questions answered and consent obtained from patient. PSYCHOTHERAPY: Supportive psychotherapy provided MEDICAL: Per primary team DELIRIUM PRECAUTIONS: Please re-orient patient frequently, keep lights on during the day, and minimize benzodiazepines and opiates as these medications could worsen patient's confusion. 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 FOLLOW-UP: Will follow Thank you for the consult. Please contact with any questions and/or concerns. Case staffed with Dr. Tatum Ace.
[2022-06-30] MEDS: DIVALPROEX DR 250 MG TAB PO SCH (22:11)
[2022-06-30] MEDS: HALOPERIDOL 5 MG TAB PO SCH (22:11)
[2022-06-30] MEDS: INSULIN GLARGINE 100 UNITS/ML SUB-Q SCH (22:13)
[2022-07-01] MEDS: DIVALPROEX DR 250 MG TAB PO SCH ×4 (03:14→21:28)
[2022-07-01 06:26] LABS: Hematocrit 42.3 % (30.3-42.9); Hemoglobin 13.7 gm/dl (10.1-14.3); Mean Corpuscular HGB Conc 33 % (30-34); Mean Corpuscular Volume 93 fl (79-97); Platelet Count 179 K/mm3 (140-440); Red Blood Count 4.55 M/mm3 (3.65-5.03); Red Cell Distribution Width 14.7 % (13.2-15.2)
[2022-07-01 06:35] LABS: Calcium 8.5 mg/dL (8.4-10.2)
[2022-07-01] MEDS: INSULIN REGULAR, HUMAN 100 UNITS/1 ML SUB-Q SCH ×7 (08:02→21:30)
[2022-07-01] MEDS: HEPARIN/ 0.45% NACL DRIP 25,000 UNIT/250 ML BAG IV SCH ×2 (08:25→22:08)
--- NOTE | 2022-07-01 09:34 | Progress Note ---
<WILDA MURRAY - Last Filed: 07/01/22 15:26> Assessment and Plan Assessment and plan: This is a 52-year-old female with known past medical history of type 2 diabetes mellitus, hypertension, Nicotine dependence, COPD, PE/DVT was on Eliquis at home, medical noncompliance, and bipolar disorder admitted for DKA and STEFFANIE Hospital Course to Date: 06/28: Mentation improved, denied any abdominal pain, no nausea/vomiting. BG and anio gap still elevated. Continue insulin gtt and IVF resuscitation per protocol. Monitor and replace electrolytes as needed, serial Labs ordered. Transition to subQ once gap is closed. BLE ischemia noted, extremities are purple and cool to touch, palpable pedal pulses appreciated. Patient reported that she has a history of PE/DVT on Eliquis but she admitted that she has not been complaints with any of her medications for 3 days. 06/29: Anion Gap still greater than 20, and CO2 15 this am. 1amp of bcarb given, continue Insulin gtt and IVF resuscitation per protocol. repeat BMP ordered, will transition to subQ once gap is closed. BLE doppler noted with extensive BLE DVT, patient remains on the heparin gtt. Patient reported she was on PO Eliquis at home and had a IVF filter placed. Vascular Surgery is also following, appreciate recommendations. Hyponatremia improving, appreciate Nephrology's recs. 06/30: Remains stable. Still on the DKA protocol, BG level has been less than 200s for over 24hrs, anion gap still in the 20s this am, probably due to STEFFANIE. Will transition patient to Subq insulin. Patient remains on the heparin gtt. BLE is unchanged, CHRISTOPHER pascual applied. Per vascular Surgery, possible interventions/thrombectomy once the patient is stabilized. 07/01: Transition to subQ insulin yesteday. Patient remains stable, tolerating PO intake. Insulin regimen adjusted for hyperglycemia, continue BG check ACHS and IVF hydration for now. Hyponatremia is improving, nephrology is following. Patient remains on heparin gtt per protocol for BLE ischemia. Possible interventions/thrombectomy tomorrow per Vascular Surgery. #Diabetic Ketoacidosis(DKA) #Uncontrolled Type 2 Diabetes Mellitus #Acute Metabolic Encephalopathy #H/O COPD #Tobacco Dependence #Hypertension #Leukocytosis- most likely due to DKA #Acute Kidney Injury(STEFFANIE) most likely Vasomotor Nephropathy #Hyponatremia #Hyperkalemia #BLE Ischemia #Current Extensive DVT in BLE- on Heparin gtt per protocol #History of DVT/PE on Eliquis at Home- S/p IVC Filter #Medical Noncompliance #Bipolar Disorder Plan: - Transition to SubQ insulin - Consistent Carbs diet - Lantus BID and SSI and BG check ACHS - Continue 1/2NS at 75ml/hr for hyponatremia - Nephrology consulted, appreciate recommendations - Heparin gtt initiated per protocol - Vascular Surgery consulted, appreciate recommendations - Per vascular Surgery, possible interventions/thrombectomy once the patient is stabilized - Strict intake and output - Avoid nephrotoxic medications; Renally dose medications - Monitor and replace electrolytes as needed, Monitor anion gap, serial Labs ordered. - PRN O2 supplementation, SPO2 goal above 92% - Continue blood pressure monitor per protocol, maintain SBP less than 160 - Smoking cessation provided. Patient verbalized understanding and agreed with current information - Resume home medications once list is available - Avoid benzodiazepine to reduce the possibility of delirium - PRN Analgesia for pain control - PRN Antiemetic for nausea vomiting - Maintenance of sleep-wake cycle - Mental Health/Psych Consult - GI/DVT Prophylaxis #Advance Care Planning - Disease education data, care plan, diagnoses, and prognosis were discussed with patient at the bedside. Patient is a FULL code. Patient acknowledged understanding and agreed with current care plan. The high probability of a clinically significant, sudden or life threatening deterioration of the [multiple] system(s) required my full and direct attention, intervention and personal management. The aggregate critical care time was [60] minutes. This time is in addition to time spent performing reported procedures but includes the following: [x] Data Review and interpretation [x] Patient assessment and monitoring of vital signs [x] Documentation [x] Medication orders and management Disposition Plan: Transfer to the floor Total Time Spent with Patient (Minutes): 60 History Interval history: Patient seen and examined at the bedside. Remains stable on RA, VSS. Transi tioned to SubQ insulin, tolerating PO intake. BLE ischemia is unchanged with palpable pedal pulses. CHRISTOPHER Hose applied per Vascular Surgery. KARINA overnight Hospitalist Physical - Physical exam Narrative exam: General appearance: Present: no acute distress, well-nourished, obese - EENT Eyes: Present: PERRL, EOM intact ENT: hearing intact - Neck Neck: Present: normal ROM - Respiratory Respiratory effort: normal Respiratory: bilateral: diminished - Cardiovascular Rhythm: regular Heart Sounds: Present: S1 & S2 - Extremities Extremities: no ischemia, pulses intact, pulses symmetrical, abnormal (BLE ischemia) Extremity abnormal: edema, cold (BLE ), other (Discolored) - Peripheral Assessment Generalized Edema Type: Non-pitting Edema Degree: 3+ Capillary Refill: > 3 seconds Skin Temperature: Cool Peripheral Pulses: within normal limits - Abdominal General gastrointestinal: soft, non-distended, normal bowel sounds, other (Obese) - Integumentary Integumentary: Present: erythema (BLE, cool to touch) - Psychiatric Psychiatric: appropriate mood/affect, cooperative - Neurologic Neurologic: moves all extremities - Allied Health Allied health notes reviewed: nursing, case management - Constitutional Vitals: Temp Pulse Resp BP Pulse Ox 99.4 F 77 21 153/68 96 07/01/22 07:15 07/01/22 09:00 07/01/22 09:00 07/01/22 09:00 07/01/22 09:00 HEART Score - HEART Score Troponin: Troponin T 0.080 ng/mL (0.00-0.029) H 06/27/22 20:48 Results - Labs CBC & Chem 7: 07/01/22 05:10 07/01/22 05:10 Labs: Laboratory Last Values WBC 6.9 K/mm3 (4.5-11.0) 07/01/22 05:10 RBC 4.55 M/mm3 (3.65-5.03) 07/01/22 05:10 Hgb 13.7 gm/dl (10.1-14.3) 07/01/22 05:10 Hct 42.3 % (30.3-42.9) 07/01/22 05:10 MCV 93 fl (79-97) 07/01/22 05:10 MCH 30 pg (28-32) 07/01/22 05:10 MCHC 33 % (30-34) 07/01/22 05:10 RDW 14.7 % (13.2-15.2) 07/01/22 05:10 Plt Count 179 K/mm3 (140-440) 07/01/22 05:10 Lymph % (Auto) 6.3 % (13.4-35.0) L 06/27/22 20:48 [place] % (Auto) 4.8 % (0.0-7.3) 06/27/22 20:48 Eos % (Auto) 0.0 % (0.0-4.3) 06/27/22 20:48 Baso % (Auto) 0.3 % (0.0-1.8) 06/27/22 20:48 Lymph # (Auto) 1.2 K/mm3 (1.2-5.4) 06/27/22 20:48 [place] # (Auto) 0.9 K/mm3 (0.0-0.8) H 06/27/22 20:48 Eos # (Auto) 0.0 K/mm3 (0.0-0.4) 06/27/22 20:48 Baso # (Auto) 0.1 K/mm3 (0.0-0.1) 06/27/22 20:48 Seg Neutrophils % 88.6 % (40.0-70.0) H 06/27/22 20:48 Seg Neutrophils # 16.5 K/mm3 (1.8-7.7) H 06/27/22 20:48 PT 19.6 Sec. (12.2-14.9) H 06/28/22 15:07 INR 1.47 (0.87-1.13) H 06/28/22 15:07 APTT 30.3 Sec. (24.2-36.6) 06/28/22 15:07 Heparin Anti-Xa Level 0.24 U.I./ml (0.3-0.7) L 07/01/22 05:10 Sodium 132 mmol/L (137-145) L 07/01/22 05:10 Potassium 4.3 mmol/L (3.6-5.0) 07/01/22 05:10 Chloride 97.8 mmol/L (98-107) L 07/01/22 05:10 Carbon Dioxide 19 mmol/L (22-30) L 07/01/22 05:10 Anion Gap 20 mmol/L 07/01/22 05:10 BUN 34 mg/dL (7-17) H 07/01/22 05:10 Creatinine 1.3 mg/dL (0.6-1.2) H 07/01/22 05:10 Estimated GFR 43 ml/min 07/01/22 05:10 BUN/Creatinine Ratio 26 % 07/01/22 05:10 Glucose 250 mg/dL (65-100) H 07/01/22 05:10 POC Glucose 235 mg/dL (70-105) H 07/01/22 07:38 Hemoglobin A1c 9.7 % (4-6) H 06/28/22 20:31 Lactic Acid 1.90 mmol/L (0.7-2.0) 06/29/22 10:47 Calcium 8.5 mg/dL (8.4-10.2) 07/01/22 05:10 Phosphorus 2.80 mg/dL (2.5-4.5) D 07/01/22 05:10 Magnesium 2.30 mg/dL (1.7-2.3) 07/01/22 05:10 Total Bilirubin 0.90 mg/dL (0.1-1.2) 06/27/22 20:48 AST 50 units/L (5-40) H 06/27/22 20:48 ALT 28 units/L (7-56) 06/27/22 20:48 Alkaline Phosphatase 97 units/L (35-129) 06/27/22 20:48 Troponin T 0.080 ng/mL (0.00-0.029) H 06/27/22 20:48 NT-Pro-B Natriuret Pep 4137 pg/mL (0-900) H 06/27/22 20:48 Total Protein 7.0 g/dL (6.3-8.2) 06/27/22 20:48 Albumin 3.1 g/dL (3.9-5) L 06/27/22 20:48 Albumin/Globulin Ratio 0.8 % 06/27/22 20:48 Triglycerides 349 mg/dL (2-149) H 06/27/22 20:48 Cholesterol 156 mg/dL (50-199) 06/27/22 20:48 LDL Cholesterol Direct 37 mg/dL (50-130) L 06/27/22 20:48 HDL Cholesterol 38 mg/dL (40-59) L 06/27/22 20:48 Cholesterol/HDL Ratio 4.10 % 06/27/22 20:48 Procalcitonin 2.51 ng/mL (<0.15) 06/29/22 10:47 PTH Intact 382.4 pg/mL (15-65) H 06/29/22 04:21 Urine Creatinine 85.4 mg/dL (0.1-20.0) H 06/28/22 08:10 Protein/Creatinin Ratio 0.57 06/28/22 08:10 Urine Sodium 10 mmol/L 06/28/22 08:10 Urine Total Protein 49 mg/dL (5-11.8) H 06/28/22 08:10 Tian/IV: Voiding Method External Female Catheter Active Medications - Current Medications Current Medications: Generic Name Dose Route Start Last Admin Trade Name Freq PRN Reason Stop Dose Admin Acetaminophen 650 mg 06/28/22 03:09 Acetaminophen 325 Mg Tab PO Q6H PRN Pain MILD(1-3)/Fever >100.5/MURILLO Dextrose 50 ml 06/30/22 09:00 Dextrose 50% In Water (25gm) 50 Ml Syringe IV Q30MIN PRN Hypoglycemia Protocol Divalproex Sodium 250 mg 06/30/22 20:00 07/01/22 08:[address] 250 Mg Tab PO 250 mg Q6H SHANTHI Administration Famotidine 20 mg 06/29/22 10:00 06/30/22 10:27 Famotidine 20 Mg Tab PO 20 mg QDAY SHANTHI Administration Haloperidol 5 mg 06/30/22 22:00 06/30/22 22:11 Haloperidol 5 Mg Tab PO 5 mg BID SHANTHI Administration Heparin Sodium (Porcine) 5,000 unit 06/28/22 14:29 Heparin Prn Bolus(Standard Intensity Drip) 40 unit/kg (5000 unit) IV Q6H PRN For Heparin Anti-Xa < 0.1 Heparin Sodium/Sodium Chloride 25,000 unit in 250 mls @ 13.66 mls/hr 06/28/22 15:00 07/01/22 08:25 Heparin/ 0.45% Nacl-25,000 Unit/250 Ml IV 13 units/kg/hr TITR SHANTHI 17.758 mls/hr Administration Protocol 10 UNITS/KG/HR Sodium Chloride 1,000 mls @ 75 mls/hr 06/30/22 14:00 06/30/22 22:11 Nacl 0.45% 1000 Ml IV 07/02/22 03:19 75 mls/hr DIRECT SHANTHI Administration Insulin Glargine 35 units 06/30/22 22:00 06/30/22 22:13 Insulin Glargine 100 Units/Ml SUB-Q 35 units BID SHANTHI Administration Insulin Human Regular 0 units 06/30/22 11:30 07/01/22 08:02 Insulin Regular, Human 100 Units/1 Ml SUB-Q 4 units ACHS SHANTHI Administration Protocol Insulin Human Regular 8 units 07/01/22 07:35 07/01/22 08:02 Insulin Regular, Human 100 Units/1 Ml SUB-Q 8 units AC SHANTHI Administration Morphine Sulfate 2 mg 06/28/22 03:09 06/28/22 18:06 Morphine 2 Mg/1 Ml Inj IV 2 mg Q4H PRN Administration Pain, Moderate (4-6) Ondansetron HCl 4 mg 06/28/22 03:09 06/28/22 05:44 Ondansetron 4 Mg/2 Ml Inj IV 4 mg Q8H PRN Administration Nausea And Vomiting Sodium Chloride 10 ml 06/28/22 10:00 06/30/22 22:13 Sodium Chloride 0.9% 10 Ml Flush Syringe IV 10 ml BID SHANTHI Administration Sodium Chloride 10 ml 06/28/22 03:09 Sodium Chloride 0.9% 10 Ml Flush Syringe IV PRN PRN LINE FLUSH Nutrition/Malnutrition Assess - Dietary Evaluation Nutrition/Malnutrition Findings: Nutrition Notes Start: 06/28/22 11:39 Freq: Status: Active Protocol: Document 06/28/22 11:39 CHRISTAL (Rec: 06/28/22 11:49 CHRISTAL [id number]) Nutrition Notes Need for Assessment generated from: MD Order,Education Initial or Follow up Assessment Current Diagnosis Acute Kidney Injury,COPD, Diabetes,Hypertension Other Pertinent Diagnosis DKA, Hyperglycemia, SOB, Nausea, Hyperkalemia, Hyponatremia,... Current Diet NPO (since 06/28 03:11). Labs/Tests 06/28: Na 125, K 5.4, Cl 87.6, CO2 18, BUN 58, Crea 2.5, Glu 199, Phos 6.9. Pertinent Medications 06/28: D5/0.45ns @ 125ml/hr, Insulin 4U, others nutritionally unremarkable. 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 Weight Status Morbidly Obese Subjective/Other Information RD consult for nutrition education and skin risk assessments. Pt is currently on NPO. Pt is on Nasal Cannula, O2 saturation @ 98%, according to Vital Signs notes. Pt still in critical condition , not a candidate for Nutrition Education at the time, will assess feasibility on F/U. Pt presents Bilateral LE redness/echimosis as sign of concern for skin risk at the time, according to Physical Assessment History notes. Percent of energy/protein needs met: Pt is on NPO. When pertinent, start with modified Consistent Carbohydrates -Renal- Diet, which provides for energy/ protein needs (2,061 Kcal/91 g ) during LOS. Burn Absent Trauma Absent GI Symptoms Nausea Food Allergy No Skin Integrity/Comment Bilateral LE redness/echimosis . Minimum of two criteria No Fluid Accumulation N/A Reduced Pole Climber Strength N/A (non-severe) Protein-Calorie Malnutrition N\A #1 Nutrition Diagnosis Overweight/obesity Etiology Possibly associated with lifestyle. As Evidenced by Signs and Symptoms BMI: 51.7 Kg/m2. Is patient on ventilator? No Is Patient Ambulatory and/or Out of Bed No REE-([facility]-confined to bed) 2356.548 Kcal/Kg value to use for calculation 11 Approximate Energy Requirements Using 1503 kcal/Kg Calculation Used for Recommendations Kcal/kg Additional Notes Protein: 0.8-1.2 g/Kg AdjBW; 77-115 g/day. Fluids: 1 ml/Kcal, or as per MD. Nutrition Intervention Change Diet Order: When pertinent, start with modified Consistent Carbohydrates -Renal- Diet, advance as tolerated. Goal #1 Adjust the dietary intervention to better serve Pt's energy/protein needs and clinical conditions during LOS . Follow-Up By: 07/02/22 Additional Comments Nutrition education will be provided at F/U, if feasible. When pertinent, start monitoring food tolerance, %PO intake of meals, and BM. <MASON ANDRADE - Last Filed: 07/02/22 07:16> Assessment and Plan Assessment and plan: I saw and evaluated the patient. I agree with the findings and the plan of care as documented in the Nurse Practitioner's~note, with the following corrections and additions. Hospitalist Physical - Constitutional Vitals: Temp Pulse Resp BP Pulse Ox 98.5 F 69 20 143/66 93 07/02/22 05:00 07/02/22 05:00 07/02/22 05:00 07/02/22 05:00 07/02/22 05:00 HEART Score - HEART Score Troponin: Troponin T 0.080 ng/mL (0.00-0.029) H 06/27/22 20:48 Results - Labs CBC & Chem 7: 07/01/22 05:10 07/01/22 05:10 Labs: Laboratory Last Values WBC 6.9 K/mm3 (4.5-11.0) 07/01/22 05:10 RBC 4.55 M/mm3 (3.65-5.03) 07/01/22 05:10 Hgb 13.7 gm/dl (10.1-14.3) 07/01/22 05:10 Hct 42.3 % (30.3-42.9) 07/01/22 05:10 MCV 93 fl (79-97) 07/01/22 05:10 MCH 30 pg (28-32) 07/01/22 05:10 MCHC 33 % (30-34) 07/01/22 05:10 RDW 14.7 % (13.2-15.2) 07/01/22 05:10 Plt Count 179 K/mm3 (140-440) 07/01/22 05:10 Lymph % (Auto) 6.3 % (13.4-35.0) L 06/27/22 20:48 [place] % (Auto) 4.8 % (0.0-7.3) 06/27/22 20:48 Eos % (Auto) 0.0 % (0.0-4.3) 06/27/22 20:48 Baso % (Auto) 0.3 % (0.0-1.8) 06/27/22 20:48 Lymph # (Auto) 1.2 K/mm3 (1.2-5.4) 06/27/22 20:48 [place] # (Auto) 0.9 K/mm3 (0.0-0.8) H 06/27/22 20:48 Eos # (Auto) 0.0 K/mm3 (0.0-0.4) 06/27/22 20:48 Baso # (Auto) 0.1 K/mm3 (0.0-0.1) 06/27/22 20:48 Seg Neutrophils % 88.6 % (40.0-70.0) H 06/27/22 20:48 Seg Neutrophils # 16.5 K/mm3 (1.8-7.7) H 06/27/22 20:48 PT 15.9 Sec. (12.2-14.9) H 07/01/22 09:13 INR 1.14 (0.87-1.13) H 07/01/22 09:13 APTT 30.3 Sec. (24.2-36.6) 06/28/22 15:07 Heparin Anti-Xa Level 0.27 U.I./ml (0.3-0.7) L 07/01/22 23:14 Sodium 132 mmol/L (137-145) L 07/01/22 05:10 Potassium 4.3 mmol/L (3.6-5.0) 07/01/22 05:10 Chloride 97.8 mmol/L (98-107) L 07/01/22 05:10 Carbon Dioxide 19 mmol/L (22-30) L 07/01/22 05:10 Anion Gap 20 mmol/L 07/01/22 05:10 BUN 34 mg/dL (7-17) H 07/01/22 05:10 Creatinine 1.3 mg/dL (0.6-1.2) H 07/01/22 05:10 Estimated GFR 43 ml/min 07/01/22 05:10 BUN/Creatinine Ratio 26 % 07/01/22 05:10 Glucose 250 mg/dL (65-100) H 07/01/22 05:10 POC Glucose 235 mg/dL (70-105) H 07/01/22 07:38 Hemoglobin A1c 9.7 % (4-6) H 06/28/22 20:31 Lactic Acid 1.90 mmol/L (0.7-2.0) 06/29/22 10:47 Calcium 8.5 mg/dL (8.4-10.2) 07/01/22 05:10 Phosphorus 2.80 mg/dL (2.5-4.5) D 07/01/22 05:10 Magnesium 2.30 mg/dL (1.7-2.3) 07/01/22 05:10 Total Bilirubin 0.90 mg/dL (0.1-1.2) 06/27/22 20:48 AST 50 units/L (5-40) H 06/27/22 20:48 ALT 28 units/L (7-56) 06/27/22 20:48 Alkaline Phosphatase 97 units/L (35-129) 06/27/22 20:48 Troponin T 0.080 ng/mL (0.00-0.029) H 06/27/22 20:48 NT-Pro-B Natriuret Pep 4137 pg/mL (0-900) H 06/27/22 20:48 Total Protein 7.0 g/dL (6.3-8.2) 06/27/22 20:48 Albumin 3.1 g/dL (3.9-5) L 06/27/22 20:48 Albumin/Globulin Ratio 0.8 % 06/27/22 20:48 Triglycerides 349 mg/dL (2-149) H 06/27/22 20:48 Cholesterol 156 mg/dL (50-199) 06/27/22 20:48 LDL Cholesterol Direct 37 mg/dL (50-130) L 06/27/22 20:48 HDL Cholesterol 38 mg/dL (40-59) L 06/27/22 20:48 Cholesterol/HDL Ratio 4.10 % 06/27/22 20:48 Procalcitonin 2.51 ng/mL (<0.15) 06/29/22 10:47 PTH Intact 382.4 pg/mL (15-65) H 06/29/22 04:21 Urine Creatinine 85.4 mg/dL (0.1-20.0) H 06/28/22 08:10 Protein/Creatinin Ratio 0.57 06/28/22 08:10 Urine Sodium 10 mmol/L 06/28/22 08:10 Urine Total Protein 49 mg/dL (5-11.8) H 06/28/22 08:10 Tian/IV: Voiding Method External Female Catheter Active Medications - Current Medications Current Medications: Generic Name Dose Route Start Last Admin Trade Name Freq PRN Reason Stop Dose Admin Acetaminophen 650 mg 06/28/22 03:09 Acetaminophen 325 Mg Tab PO Q6H PRN Pain MILD(1-3)/Fever >100.5/MURILLO Dextrose 50 ml 06/30/22 09:00 Dextrose 50% In Water (25gm) 50 Ml Syringe IV Q30MIN PRN Hypoglycemia Protocol Divalproex Sodium 250 mg 06/30/22 20:00 07/02/22 01:[address] 250 Mg Tab PO 250 mg Q6H SHANTHI Administration Famotidine 20 mg 06/29/22 10:00 07/01/22 09:49 Famotidine 20 Mg Tab PO 20 mg QDAY SHANTHI Administration Haloperidol 5 mg 06/30/22 22:00 07/01/22 21:29 Haloperidol 5 Mg Tab PO 5 mg BID SHANTHI Administration Heparin Sodium (Porcine) 5,000 unit 06/28/22 14:29 Heparin Prn Bolus(Standard Intensity Drip) 40 unit/kg (5000 unit) IV Q6H PRN For Heparin Anti-Xa < 0.1 Heparin Sodium/Sodium Chloride 25,000 unit in 250 mls @ 13.66 mls/hr 06/28/22 15:00 07/02/22 00:38 Heparin/ 0.45% Nacl-25,000 Unit/250 Ml IV 15 units/kg/hr TITR SHANTHI 20.49 mls/hr Titration Protocol 10 UNITS/KG/HR Sodium Chloride 1,000 mls @ 75 mls/hr 06/30/22 14:00 07/01/22 19:15 Nacl 0.45% 1000 Ml IV 07/02/22 23:58 75 mls/hr DIRECT SHANTHI Administration Insulin Glargine 35 units 06/30/22 22:00 07/01/22 21:34 Insulin Glargine 100 Units/Ml SUB-Q 35 units BID SHANTHI Administration Insulin Human Regular 0 units 06/30/22 11:30 07/01/22 21:30 Insulin Regular, Human 100 Units/1 Ml SUB-Q 6 units ACHS SHANTHI Administration Protocol Insulin Human Regular 8 units 07/01/22 07:35 07/01/22 17:20 Insulin Regular, Human 100 Units/1 Ml SUB-Q 8 units AC SHANTHI Administration Morphine Sulfate 2 mg 06/28/22 03:09 06/28/22 18:06 Morphine 2 Mg/1 Ml Inj IV 2 mg Q4H PRN Administration Pain, Moderate (4-6) Ondansetron HCl 4 mg 06/28/22 03:09 06/28/22 05:44 Ondansetron 4 Mg/2 Ml Inj IV 4 mg Q8H PRN Administration Nausea And Vomiting Sodium Chloride 10 ml 06/28/22 10:00 07/01/22 21:35 Sodium Chloride 0.9% 10 Ml Flush Syringe IV 10 ml BID SHANTHI Administration Sodium Chloride 10 ml 06/28/22 03:09 Sodium Chloride 0.9% 10 Ml Flush Syringe IV PRN PRN LINE FLUSH Nutrition/Malnutrition Assess - Dietary Evaluation Nutrition/Malnutrition Findings: Nutrition Notes Start: 06/28/22 11:39 Freq: Status: Active Protocol: Document 06/28/22 11:39 CHRISTAL (Rec: 06/28/22 11:49 CHRISTAL [id number]) Nutrition Notes Need for Assessment generated from: MD Order,Education Initial or Follow up Assessment Current Diagnosis Acute Kidney Injury,COPD, Diabetes,Hypertension Other Pertinent Diagnosis DKA, Hyperglycemia, SOB, Nausea, Hyperkalemia, Hyponatremia,... Current Diet NPO (since 06/28 03:11). Labs/Tests 06/28: Na 125, K 5.4, Cl 87.6, CO2 18, BUN 58, Crea 2.5, Glu 199, Phos 6.9. Pertinent Medications 06/28: D5/0.45ns @ 125ml/hr, Insulin 4U, others nutritionally unremarkable. 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 Weight Status Morbidly Obese Subjective/Other Information RD consult for nutrition education and skin risk assessments. Pt is currently on NPO. Pt is on Nasal Cannula, O2 saturation @ 98%, according to Vital Signs notes. Pt still in critical condition , not a candidate for Nutrition Education at the time, will assess feasibility on F/U. Pt presents Bilateral LE redness/echimosis as sign of concern for skin risk at the time, according to Physical Assessment History notes. Percent of energy/protein needs met: Pt is on NPO. When pertinent, start with modified Consistent Carbohydrates -Renal- Diet, which provides for energy/ protein needs (2,061 Kcal/91 g ) during LOS. Burn Absent Trauma Absent GI Symptoms Nausea Food Allergy No Skin Integrity/Comment Bilateral LE redness/echimosis . Minimum of two criteria No Fluid Accumulation N/A Reduced Pole Climber Strength N/A (non-severe) Protein-Calorie Malnutrition N\A #1 Nutrition Diagnosis Overweight/obesity Etiology Possibly associated with lifestyle. As Evidenced by Signs and Symptoms BMI: 51.7 Kg/m2. Is patient on ventilator? No Is Patient Ambulatory and/or Out of Bed No REE-([place]-confined to bed) 2356.548 Kcal/Kg value to use for calculation 11 Approximate Energy Requirements Using 1503 kcal/Kg Calculation Used for Recommendations Kcal/kg Additional Notes Protein: 0.8-1.2 g/Kg AdjBW; 77-115 g/day. Fluids: 1 ml/Kcal, or as per MD. Nutrition Intervention Change Diet Order: When pertinent, start with modified Consistent Carbohydrates -Renal- Diet, advance as tolerated. Goal #1 Adjust the dietary intervention to better serve Pt's energy/protein needs and clinical conditions during LOS . Follow-Up By: 07/02/22 Additional Comments Nutrition education will be provided at F/U, if feasible. When pertinent, start monitoring food tolerance, %PO intake of meals, and BM.
[2022-07-01] MEDS: INSULIN GLARGINE 100 UNITS/ML SUB-Q SCH ×2 (09:49→21:34)
[2022-07-01] MEDS: FAMOTIDINE 20 MG TAB PO SCH (09:49)
[2022-07-01] MEDS: HALOPERIDOL 5 MG TAB PO SCH ×2 (09:49→21:29)
[2022-07-01 11:00] LABS: INR 1.14 (0.87-1.13)
--- NOTE | 2022-07-01 11:54 | Progress Note ---
Assessment and Plan Patient with extensive bilateral lower extremity DVT with preserved arterial flow. CHRISTOPHER hose are in place. Patient will need to undergo thrombectomy when she is medically stable. We will tentatively make the patient n.p.o. after midnight with [facility] scheduling. Subjective Date of service: 07/01/22 Principal diagnosis: AHRF; DKA; Hyperkalemia; COPD; ? cellulitis; PVD; STEFFANIE; Morbid obesity; ?JACKLYN Interval history: Patient resting comfortably in bed. Patient has palpable pedal pulses and bilateral lower extremity edema. Anion gap of 20 Objective - Constitutional Vitals: Vital Signs - 12hr 07/01/22 07/01/22 07/01/22 00:00 00:05 01:00 Temperature Pulse Rate 75 76 72 Pulse Rate [ 77 From Monitor] Respiratory 22 24 16 Rate Blood Pressure 145/71 145/71 142/68 O2 Sat by Pulse 94 94 95 Oximetry 07/01/22 07/01/22 07/01/22 02:00 03:00 04:00 Temperature 99.5 F Pulse Rate 76 69 70 Pulse Rate [ 70 From Monitor] Respiratory 21 20 21 Rate Blood Pressure 159/82 157/75 152/71 O2 Sat by Pulse 93 93 91 Oximetry 07/01/22 07/01/22 07/01/22 05:00 06:00 07:00 Temperature Pulse Rate 69 67 68 Pulse Rate [ From Monitor] Respiratory 19 22 25 H Rate Blood Pressure 156/78 165/76 151/72 O2 Sat by Pulse 92 98 93 Oximetry 07/01/22 07/01/22 07/01/22 07:15 07:41 07:55 Temperature 99.4 F Pulse Rate Pulse Rate [ 64 From Monitor] Respiratory 19 Rate Blood Pressure O2 Sat by Pulse 100 94 Oximetry 07/01/22 07/01/22 07/01/22 07:56 08:00 09:00 Temperature Pulse Rate 65 58 L 77 Pulse Rate [ From Monitor] Respiratory 20 21 Rate Blood Pressure 162/73 153/68 O2 Sat by Pulse 100 96 Oximetry General appearance: Present: no acute distress, obese - EENT Eyes: EOM intact ENT: hearing intact - Neck Neck: normal ROM - Respiratory Respiratory effort: normal Extremities: abnormal Extremity abnormal: edema - Gastrointestinal General gastrointestinal: Present: deferred Rectal Exam: deferred - Genitourinary Female genitourinary: deferred - Psychiatric Psychiatric: cooperative - Labs CBC & Chem 7: 07/01/22 05:10 07/01/22 05:10 Labs: Abnormal lab results 06/30/22 06/30/22 06/30/22 Range/Units 07:25 08:20 09:20 PT (12.2-14.9) Sec. INR (0.87-1.13) Heparin Anti-Xa Level (0.3-0.7) U.I./ml Sodium (137-145) mmol/L Chloride (98-107) mmol/L Carbon Dioxide (22-30) mmol/L BUN (7-17) mg/dL Creatinine (0.6-1.2) mg/dL Glucose (65-100) mg/dL POC Glucose 133 H 119 H 128 H (70-105) mg/dL Calcium (8.4-10.2) mg/dL 06/30/22 06/30/22 06/30/22 Range/Units 10:21 10:59 11:25 PT (12.2-14.9) Sec. INR (0.87-1.13) Heparin Anti-Xa Level (0.3-0.7) U.I./ml Sodium 132 L (137-145) mmol/L Chloride (98-107) mmol/L Carbon Dioxide 16 L (22-30) mmol/L BUN 49 H (7-17) mg/dL Creatinine 1.7 H (0.6-1.2) mg/dL Glucose 168 H (65-100) mg/dL POC Glucose 133 H 232 H (70-105) mg/dL Calcium 8.1 L (8.4-10.2) mg/dL 06/30/22 06/30/22 07/01/22 Range/Units 16:15 21:30 05:10 PT (12.2-14.9) Sec. INR (0.87-1.13) Heparin Anti-Xa Level 0.24 L (0.3-0.7) U.I./ml Sodium (137-145) mmol/L Chloride (98-107) mmol/L Carbon Dioxide (22-30) mmol/L BUN (7-17) mg/dL Creatinine (0.6-1.2) mg/dL Glucose (65-100) mg/dL POC Glucose 325 H 279 H (70-105) mg/dL Calcium (8.4-10.2) mg/dL 07/01/22 07/01/22 07/01/22 Range/Units 05:10 07:38 09:13 PT 15.9 H (12.2-14.9) Sec. INR 1.14 H (0.87-1.13) Heparin Anti-Xa Level (0.3-0.7) U.I./ml Sodium 132 L (137-145) mmol/L Chloride 97.8 L (98-107) mmol/L Carbon Dioxide 19 L (22-30) mmol/L BUN 34 H (7-17) mg/dL Creatinine 1.3 H (0.6-1.2) mg/dL Glucose 250 H (65-100) mg/dL POC Glucose 235 H (70-105) mg/dL Calcium (8.4-10.2) mg/dL Medications & Allergies - Medications Allergies/Adverse Reactions: Allergies ciprofloxacin [From Cipro] Allergy (Verified 05/28/22 12:07) Unknown Penicillins Allergy (Verified 05/28/22 12:07) Unknown Home Medications: Home Medications Medication Instructions Recorded Confirmed Last Taken Type Apixaban [Eliquis] 5 mg PO BID 04/13/21 06/28/22 Unknown History Empagliflozin [Jardiance] 25 mg DAILY 04/13/21 06/28/22 Unknown History Fenofibrate 160 mg PO DAILY 04/13/21 06/28/22 Unknown History Glimepiride 4 mg BID 04/13/21 06/28/22 Unknown History Insulin Aspart (Nf) [NovoLOG 100 unit SQ PRN PRN 04/13/21 06/28/22 Unknown History Flexpen] Levothyroxine [Synthroid] 112 mcg PO QAM 04/13/21 06/28/22 Unknown History Lisinopril/Hydrochlorothiazide 1 tab PO QDAY 04/13/21 06/28/22 Unknown History [Zestoretic 20-12.5 mg] [place] Carbonate 600 mg PO QHS 04/13/21 06/28/22 Unknown History [place] Carbonate [Eskalith] 150 mg PO QAM 04/13/21 06/28/22 Unknown History Lurasidone [Latuda] 40 mg QHS 04/13/21 06/28/22 Unknown History Oxybutynin Chloride [Ditropan Xl] 15 mg PO QDAY 04/13/21 06/28/22 Unknown History Semaglutide [Ozempic] 1 unit SQ 1XW 04/13/21 06/28/22 Unknown History Venlafaxine HCl [Venlafaxine HCl 150 mg DAILY 04/13/21 06/28/22 Unknown History ER] buPROPion SR [Wellbutrin SR] 100 mg PO DAILY 04/13/21 06/28/22 Unknown History Doxycycline Hyclate [Doxycycline 100 mg PO Q12HR 7 Days #14 04/14/21 06/28/22 Unknown Rx Hyclate TAB] Active Medications: Generic Name Dose Route Start Last Admin Trade Name Freq PRN Reason Stop Dose Admin Acetaminophen 650 mg 06/28/22 03:09 Acetaminophen 325 Mg Tab PO Q6H PRN Pain MILD(1-3)/Fever >100.5/MURILLO Dextrose 50 ml 06/30/22 09:00 Dextrose 50% In Water (25gm) 50 Ml Syringe IV Q30MIN PRN Hypoglycemia Protocol Divalproex Sodium 250 mg 06/30/22 20:00 07/01/22 08:[address] 250 Mg Tab PO 250 mg Q6H SHANTHI Administration Famotidine 20 mg 06/29/22 10:00 07/01/22 09:49 Famotidine 20 Mg Tab PO 20 mg QDAY SHANTHI Administration Haloperidol 5 mg 06/30/22 22:00 07/01/22 09:49 Haloperidol 5 Mg Tab PO 5 mg BID SHANTHI Administration Heparin Sodium (Porcine) 5,000 unit 06/28/22 14:29 Heparin Prn Bolus(Standard Intensity Drip) 40 unit/kg (5000 unit) IV Q6H PRN For Heparin Anti-Xa < 0.1 Heparin Sodium/Sodium Chloride 25,000 unit in 250 mls @ 13.66 mls/hr 06/28/22 15:00 07/01/22 08:25 Heparin/ 0.45% Nacl-25,000 Unit/250 Ml IV 13 units/kg/hr TITR SHANTHI 17.758 mls/hr Administration Protocol 10 UNITS/KG/HR Sodium Chloride 1,000 mls @ 75 mls/hr 06/30/22 14:00 06/30/22 22:11 Nacl 0.45% 1000 Ml IV 07/02/22 03:19 75 mls/hr DIRECT SHANTHI Administration Insulin Glargine 35 units 06/30/22 22:00 07/01/22 09:49 Insulin Glargine 100 Units/Ml SUB-Q 35 units BID SHANTHI Administration Insulin Human Regular 0 units 06/30/22 11:30 07/01/22 08:02 Insulin Regular, Human 100 Units/1 Ml SUB-Q 4 units ACHS SHANTHI Administration Protocol Insulin Human Regular 8 units 07/01/22 07:35 07/01/22 08:02 Insulin Regular, Human 100 Units/1 Ml SUB-Q 8 units AC SHANTHI Administration Morphine Sulfate 2 mg 06/28/22 03:09 06/28/22 18:06 Morphine 2 Mg/1 Ml Inj IV 2 mg Q4H PRN Administration Pain, Moderate (4-6) Ondansetron HCl 4 mg 06/28/22 03:09 06/28/22 05:44 Ondansetron 4 Mg/2 Ml Inj IV 4 mg Q8H PRN Administration Nausea And Vomiting Sodium Chloride 10 ml 06/28/22 10:00 07/01/22 10:10 Sodium Chloride 0.9% 10 Ml Flush Syringe IV 10 ml BID SHANTHI Administration Sodium Chloride 10 ml 06/28/22 03:09 Sodium Chloride 0.9% 10 Ml Flush Syringe IV PRN PRN LINE FLUSH HEART Score - HEART Score Troponin: Troponin T 0.080 ng/mL (0.00-0.029) H 06/27/22 20:48
--- NOTE | 2022-07-01 13:15 | Progress Note ---
Assessment and Plan 52-year-old -[place] female with known history of diabetes mellitus, hypertension, COPD presenting in the emergency room today complaining of shortness of breath. She has also had occasional palpitations. Patient has history of DVT and PE. Patient is on Eliquis at home. Patient denies any fever or chills, no headache or dizziness, no diaphoresis. Patient has had some nausea but no vomiting, no abdominal pain and no diarrhea. Patient has history of smoking 1 pack x 30 years. Counseled to stop smoking. Denies alcohol or drug abuse. Worked in [employer]. Not . No children. Allergic to CIPRO and Ampicillin. Work-up in the emergency room ,Significant findings on the labs includes potassium level of 6.4, sodium level of 121, anion gap of 40, BUN of 54 and creatinine of 2.5. Blood glucose was 562. Chest x-ray shows no acute findings. Patient being admitted for diabetic ketoacidosis. She has been started on IV fluid and insulin drip. Patient improved. transfered to medical floor. Patient is Morbidly Obese, Awake. Patient is on room air. Patients O2 saturation 96%. No acute respiratory diustress. Patient afebrile. No leukocytosis. Blood pressure 132/62, Pulse 68, Respirations 20. Chest xray obtained 06/27/22 reported No acute findings. Patient is on I/V Heparin and famotidine.t. - Patient Problems (1) Cardiac arrhythmia Current Visit: Yes Status: Acute Plan to address problem: Management as per cardiology. (2) Acute metabolic encephalopathy Current Visit: No Status: Acute Plan to address problem: Management as per primary care. (3) COPD (chronic obstructive pulmonary disease) Current Visit: No Status: Acute Plan to address problem: Recommend Xopenex and atrovent aerosol treatments q 8 hours. Patient is on I/V heparin. Continue famotidine. (4) DKA (diabetic ketoacidoses) Current Visit: No Status: Acute Plan to address problem: Improving. Anion gap 19. Management as per primary care. (5) Hypertension Current Visit: No Status: Acute Plan to address problem: Management as per primary care. (6) Renal insufficiency Current Visit: No Status: Acute Plan to address problem: Management as per nephrology. (7) Morbid obesity with BMI of 50.0-59.9, adult Current Visit: Yes Status: Acute Plan to address problem: Recommend to loose weight. Recommend Sleep study as out patient. (8) History of deep venous thrombosis or pulmonary embolus Current Visit: Yes Status: Acute Plan to address problem: Patient was on Eliquis at home. Presently she is on I/V Heparin. (9) Nicotine dependence Current Visit: Yes Status: Acute Plan to address problem: Counseled to stop smokng. Recommend Nicoderm Patch. Subjective Date of service: 07/01/22 Principal diagnosis: AHRF; DKA; Hyperkalemia; COPD; ? cellulitis; PVD; STEFFANIE; Morbid obesity; ?JACKLYN Interval history: 52-year-old -[place] female with known history of diabetes mellitus, hypertension, COPD presenting in the emergency room today complaining of shortness of breath. She has also had occasional palpitations. Patient has history of DVT and PE. Patient is on Eliquis at home. Patient denies any fever or chills, no headache or dizziness, no diaphoresis. Patient has had some nausea but no vomiting, no abdominal pain and no diarrhea. Patient has history of smoking 1 pack x 30 years. Counseled to stop smoking. Denies alcohol or drug abuse. Worked in [employer]. Not . No children. Allergic to CIPRO and Ampicillin. Work-up in the emergency room ,Significant findings on the labs includes potassium level of 6.4, sodium level of 121, anion gap of 40, BUN of 54 and creatinine of 2.5. Blood glucose was 562. Chest x-ray shows no acute findings. Patient being admitted for diabetic ketoacidosis. She has been started on IV fluid and insulin drip. Patient improved. transfered to medical floor Patient is Morbidly Obese, Awake. Patient is on room air. Patients O2 saturation 96%. No acute respiratory diustress. Patient afebrile. No leukocytosis. Blood pressure 132/62, Pulse 68, Respirations 20. Chest xray obtained 06/27/22 reported No acute findings. Patient is on I/V Heparin and famotidine. Objective Vital Signs - 12hr 07/01/22 07/01/22 07/01/22 02:00 03:00 04:00 Temperature 99.5 F Pulse Rate 76 69 70 Pulse Rate [ 70 From Monitor] Respiratory 21 20 21 Rate Blood Pressure 159/82 157/75 152/71 O2 Sat by Pulse 93 93 91 Oximetry 07/01/22 07/01/22 07/01/22 05:00 06:00 07:00 Temperature Pulse Rate 69 67 68 Pulse Rate [ From Monitor] Respiratory 19 22 25 H Rate Blood Pressure 156/78 165/76 151/72 O2 Sat by Pulse 92 98 93 Oximetry 07/01/22 07/01/22 07/01/22 07:15 07:41 07:55 Temperature 99.4 F Pulse Rate Pulse Rate [ 64 From Monitor] Respiratory 19 Rate Blood Pressure O2 Sat by Pulse 100 94 Oximetry 07/01/22 07/01/22 07/01/22 07:56 08:00 09:00 Temperature Pulse Rate 65 58 L 77 Pulse Rate [ From Monitor] Respiratory 20 21 Rate Blood Pressure 162/73 153/68 O2 Sat by Pulse 100 96 Oximetry Constitutional: no acute distress, alert, other (Morbidly Obese, No acute respiratory distress at rest.) Eyes: non-icteric ENT: oropharynx moist Neck: supple, no lymphadenopathy, no JVD, other (large circumference) Effort: mildly labored Ascultation: Bilateral: diminished breath sounds Percussion: Bilateral: not dull Cardiovascular: regular rate and rhythm Gastrointestinal: normoactive bowel sounds, non-tender, tender, non-distended Integumentary: rash (shins), other (erythema to shins) Extremities: no cyanosis, pink and warm, no ischemia or petechiae, edema (trace to 1+) Neurologic: normal mental status, non-focal exam (grossly), pupils equal and round, motor strength normal and Psychiatric: mood appropriate, affect normal CBC and BMP: 07/02/22 08:12 07/02/22 08:12 ABG, PT/INR, D-dimer: PT/INR, D-dimer PT 15.9 Sec. (12.2-14.9) H 07/01/22 09:13 INR 1.14 (0.87-1.13) H 07/01/22 09:13 Abnormal lab findings: Abnormal Labs 06/27/22 06/27/22 06/27/22 20:48 20:48 23:56 WBC 18.7 H RBC Hgb 15.1 H Hct 47.1 H Lymph % (Auto) 6.3 L [place] # (Auto) 0.9 H Seg Neutrophils % 88.6 H Seg Neutrophils # 16.5 H PT INR Heparin Anti-Xa Level Sodium 123 L 121 L Potassium 6.9 H* 6.4 H* Chloride 82.4 L 79.7 L Carbon Dioxide 7 L* 8 L* BUN 50 H 54 H Creatinine 2.2 H 2.5 H Glucose 578 H* 562 H* POC Glucose Hemoglobin A1c Calcium Phosphorus 10.40 H Magnesium 2.70 H 2.60 H AST 50 H Troponin T 0.080 H NT-Pro-B Natriuret Pep 4137 H Albumin 3.1 L Triglycerides 349 H LDL Cholesterol Direct 37 L HDL Cholesterol 38 L PTH Intact Urine Creatinine Urine Total Protein 06/28/22 06/28/22 06/28/22 01:45 03:17 03:35 WBC RBC Hgb Hct Lymph % (Auto) [place] # (Auto) Seg Neutrophils % Seg Neutrophils # PT INR Heparin Anti-Xa Level Sodium 120 L 121 L Potassium 6.2 H* 5.4 H Chloride 79.1 L 84.7 L Carbon Dioxide 7 L* 7 L* BUN 55 H 57 H Creatinine 2.6 H 2.6 H Glucose 551 H* 486 H POC Glucose 568 H Hemoglobin A1c Calcium 8.1 L 7.7 L Phosphorus Magnesium AST Troponin T NT-Pro-B Natriuret Pep Albumin Triglycerides LDL Cholesterol Direct HDL Cholesterol PTH Intact Urine Creatinine Urine Total Protein 06/28/22 06/28/22 06/28/22 03:35 04:05 05:13 WBC RBC Hgb Hct Lymph % (Auto) [place] # (Auto) Seg Neutrophils % Seg Neutrophils # PT INR Heparin Anti-Xa Level Sodium Potassium Chloride Carbon Dioxide BUN Creatinine Glucose POC Glucose 508 H 443 H Hemoglobin A1c Calcium Phosphorus 9.20 H Magnesium AST Troponin T NT-Pro-B Natriuret Pep Albumin Triglycerides LDL Cholesterol Direct HDL Cholesterol PTH Intact Urine Creatinine Urine Total Protein 06/28/22 06/28/22 06/28/22 05:40 06:30 07:39 WBC RBC Hgb Hct Lymph % (Auto) [place] # (Auto) Seg Neutrophils % Seg Neutrophils # PT INR Heparin Anti-Xa Level Sodium 124 L Potassium 5.1 H Chloride 86.5 L Carbon Dioxide 13 L BUN 59 H Creatinine 2.6 H Glucose 396 H POC Glucose 419 H 377 H Hemoglobin A1c Calcium 8.0 L Phosphorus Magnesium AST Troponin T NT-Pro-B Natriuret Pep Albumin Triglycerides LDL Cholesterol Direct HDL Cholesterol PTH Intact Urine Creatinine Urine Total Protein 06/28/22 06/28/22 06/28/22 08:10 08:18 09:32 WBC RBC Hgb Hct Lymph % (Auto) [place] # (Auto) Seg Neutrophils % Seg Neutrophils # PT INR Heparin Anti-Xa Level Sodium Potassium Chloride Carbon Dioxide BUN Creatinine Glucose POC Glucose 390 H 347 H Hemoglobin A1c Calcium Phosphorus Magnesium AST Troponin T NT-Pro-B Natriuret Pep Albumin Triglycerides LDL Cholesterol Direct HDL Cholesterol PTH Intact Urine Creatinine 85.4 H Urine Total Protein 49 H 06/28/22 06/28/22 06/28/22 10:46 11:40 12:40 WBC RBC Hgb Hct Lymph % (Auto) [place] # (Auto) Seg Neutrophils % Seg Neutrophils # PT INR Heparin Anti-Xa Level Sodium Potassium Chloride Carbon Dioxide BUN Creatinine Glucose POC Glucose 313 H 274 H 258 H Hemoglobin A1c Calcium Phosphorus Magnesium AST Troponin T NT-Pro-B Natriuret Pep Albumin Triglycerides LDL Cholesterol Direct HDL Cholesterol PTH Intact Urine Creatinine Urine Total Protein 06/28/22 06/28/22 06/28/22 13:38 14:13 14:13 WBC 19.7 H RBC 5.33 H Hgb 16.2 H Hct 49.4 H Lymph % (Auto) [place] # (Auto) Seg Neutrophils % Seg Neutrophils # PT INR Heparin Anti-Xa Level Sodium 125 L Potassium 5.4 H Chloride 87.6 L Carbon Dioxide 18 L BUN 58 H Creatinine 2.5 H Glucose 199 H POC Glucose 205 H Hemoglobin A1c Calcium Phosphorus 6.90 H D Magnesium AST Troponin T NT-Pro-B Natriuret Pep Albumin Triglycerides LDL Cholesterol Direct HDL Cholesterol PTH Intact Urine Creatinine Urine Total Protein 06/28/22 06/28/22 06/28/22 14:56 15:07 15:07 WBC RBC Hgb 15.5 H Hct 46.8 H Lymph % (Auto) [place] # (Auto) Seg Neutrophils % Seg Neutrophils # PT INR Heparin Anti-Xa Level Sodium 128 L Potassium 5.3 H Chloride 94.0 L Carbon Dioxide 14 L BUN 59 H Creatinine 2.4 H Glucose 183 H POC Glucose 194 H Hemoglobin A1c Calcium 7.8 L Phosphorus Magnesium AST Troponin T NT-Pro-B Natriuret Pep Albumin Triglycerides LDL Cholesterol Direct HDL Cholesterol PTH Intact Urine Creatinine Urine Total Protein 06/28/22 06/28/22 06/28/22 15:07 15:54 17:10 WBC RBC Hgb Hct Lymph % (Auto) [place] # (Auto) Seg Neutrophils % Seg Neutrophils # PT 19.6 H INR 1.47 H Heparin Anti-Xa Level Sodium Potassium Chloride Carbon Dioxide BUN Creatinine Glucose POC Glucose 189 H 216 H Hemoglobin A1c Calcium Phosphorus Magnesium AST Troponin T NT-Pro-B Natriuret Pep Albumin Triglycerides LDL Cholesterol Direct HDL Cholesterol PTH Intact Urine Creatinine Urine Total Protein 06/28/22 06/28/22 06/28/22 17:59 18:54 19:49 WBC RBC Hgb Hct Lymph % (Auto) [place] # (Auto) Seg Neutrophils % Seg Neutrophils # PT INR Heparin Anti-Xa Level Sodium Potassium Chloride Carbon Dioxide BUN Creatinine Glucose POC Glucose 195 H 178 H 166 H Hemoglobin A1c Calcium Phosphorus Magnesium AST Troponin T NT-Pro-B Natriuret Pep Albumin Triglycerides LDL Cholesterol Direct HDL Cholesterol PTH Intact Urine Creatinine Urine Total Protein 06/28/22 06/28/22 06/28/22 20:31 20:31 20:31 WBC RBC Hgb Hct Lymph % (Auto) [place] # (Auto) Seg Neutrophils % Seg Neutrophils # PT INR Heparin Anti-Xa Level 0.19 L Sodium 129 L Potassium 5.1 H Chloride 95.6 L Carbon Dioxide 15 L BUN 59 H Creatinine 2.4 H Glucose 145 H POC Glucose Hemoglobin A1c 9.7 H Calcium 8.0 L Phosphorus 6.40 H Magnesium AST Troponin T NT-Pro-B Natriuret Pep Albumin Triglycerides LDL Cholesterol Direct HDL Cholesterol PTH Intact Urine Creatinine Urine Total Protein 06/28/22 06/28/22 06/28/22 21:27 22:22 23:36 WBC RBC Hgb Hct Lymph % (Auto) [place] # (Auto) Seg Neutrophils % Seg Neutrophils # PT INR Heparin Anti-Xa Level Sodium Potassium Chloride Carbon Dioxide BUN Creatinine Glucose POC Glucose 131 H 148 H 146 H Hemoglobin A1c Calcium Phosphorus Magnesium AST Troponin T NT-Pro-B Natriuret Pep Albumin Triglycerides LDL Cholesterol Direct HDL Cholesterol PTH Intact Urine Creatinine Urine Total Protein 06/29/22 06/29/22 06/29/22 00:21 01:27 02:54 WBC RBC Hgb Hct Lymph % (Auto) [place] # (Auto) Seg Neutrophils % Seg Neutrophils # PT INR Heparin Anti-Xa Level Sodium Potassium Chloride Carbon Dioxide BUN Creatinine Glucose POC Glucose 149 H 172 H 172 H Hemoglobin A1c Calcium Phosphorus Magnesium AST Troponin T NT-Pro-B Natriuret Pep Albumin Triglycerides LDL Cholesterol Direct HDL Cholesterol PTH Intact Urine Creatinine Urine Total Protein 06/29/22 06/29/22 06/29/22 04:05 04:21 04:21 WBC 17.1 H RBC Hgb 14.6 H Hct 43.9 H Lymph % (Auto) [place] # (Auto) Seg Neutrophils % Seg Neutrophils # PT INR Heparin Anti-Xa Level Sodium 129 L Potassium Chloride 97.6 L Carbon Dioxide 15 L BUN 59 H Creatinine 2.1 H Glucose 140 H POC Glucose 167 H Hemoglobin A1c Calcium 8.0 L Phosphorus Magnesium AST Troponin T NT-Pro-B Natriuret Pep Albumin Triglycerides LDL Cholesterol Direct HDL Cholesterol PTH Intact Urine Creatinine Urine Total Protein 06/29/22 06/29/22 06/29/22 04:21 06:27 07:31 WBC RBC Hgb Hct Lymph % (Auto) [place] # (Auto) Seg Neutrophils % Seg Neutrophils # PT INR Heparin Anti-Xa Level Sodium Potassium Chloride Carbon Dioxide BUN Creatinine Glucose POC Glucose 138 H 142 H Hemoglobin A1c Calcium Phosphorus Magnesium AST Troponin T NT-Pro-B Natriuret Pep Albumin Triglycerides LDL Cholesterol Direct HDL Cholesterol PTH Intact 382.4 H Urine Creatinine Urine Total Protein 06/29/22 06/29/22 06/29/22 08:33 09:28 10:35 WBC RBC Hgb Hct Lymph % (Auto) [place] # (Auto) Seg Neutrophils % Seg Neutrophils # PT INR Heparin Anti-Xa Level Sodium Potassium Chloride Carbon Dioxide BUN Creatinine Glucose POC Glucose 141 H 167 H 152 H Hemoglobin A1c Calcium Phosphorus Magnesium AST Troponin T NT-Pro-B Natriuret Pep Albumin Triglycerides LDL Cholesterol Direct HDL Cholesterol PTH Intact Urine Creatinine Urine Total Protein 06/29/22 06/29/22 06/29/22 10:47 11:30 12:33 WBC RBC Hgb Hct Lymph % (Auto) [place] # (Auto) Seg Neutrophils % Seg Neutrophils # PT INR Heparin Anti-Xa Level Sodium 131 L Potassium Chloride 94.4 L Carbon Dioxide 15 L BUN 59 H Creatinine 2.2 H Glucose 149 H POC Glucose 134 H 146 H Hemoglobin A1c Calcium Phosphorus 5.80 H Magnesium AST Troponin T NT-Pro-B Natriuret Pep Albumin Triglycerides LDL Cholesterol Direct HDL Cholesterol PTH Intact Urine Creatinine Urine Total Protein 06/29/22 06/29/22 06/29/22 13:28 14:33 15:49 WBC RBC Hgb Hct Lymph % (Auto) [place] # (Auto) Seg Neutrophils % Seg Neutrophils # PT INR Heparin Anti-Xa Level Sodium Potassium Chloride Carbon Dioxide BUN Creatinine Glucose POC Glucose 170 H 188 H 155 H Hemoglobin A1c Calcium Phosphorus Magnesium AST Troponin T NT-Pro-B Natriuret Pep Albumin Triglycerides LDL Cholesterol Direct HDL Cholesterol PTH Intact Urine Creatinine Urine Total Protein 06/29/22 06/29/22 06/29/22 16:14 16:14 16:45 WBC RBC Hgb Hct Lymph % (Auto) [place] # (Auto) Seg Neutrophils % Seg Neutrophils # PT INR Heparin Anti-Xa Level 0.19 L Sodium 128 L Potassium Chloride 95.8 L Carbon Dioxide 15 L BUN 52 H Creatinine 1.8 H Glucose 138 H POC Glucose 135 H Hemoglobin A1c Calcium 7.9 L Phosphorus Magnesium AST Troponin T NT-Pro-B Natriuret Pep Albumin Triglycerides LDL Cholesterol Direct HDL Cholesterol PTH Intact Urine Creatinine Urine Total Protein 06/29/22 06/29/22 06/29/22 17:47 18:52 20:14 WBC RBC Hgb Hct Lymph % (Auto) [place] # (Auto) Seg Neutrophils % Seg Neutrophils # PT INR Heparin Anti-Xa Level Sodium Potassium Chloride Carbon Dioxide BUN Creatinine Glucose POC Glucose 150 H 123 H 155 H Hemoglobin A1c Calcium Phosphorus Magnesium AST Troponin T NT-Pro-B Natriuret Pep Albumin Triglycerides LDL Cholesterol Direct HDL Cholesterol PTH Intact Urine Creatinine Urine Total Protein 06/29/22 06/29/22 06/29/22 20:17 21:11 21:53 WBC RBC Hgb Hct Lymph % (Auto) [place] # (Auto) Seg Neutrophils % Seg Neutrophils # PT INR Heparin Anti-Xa Level Sodium 131 L Potassium 5.5 H D Chloride Carbon Dioxide 15 L BUN 56 H Creatinine 2.0 H Glucose 146 H POC Glucose 152 H 165 H Hemoglobin A1c Calcium Phosphorus 5.20 H Magnesium AST Troponin T NT-Pro-B Natriuret Pep Albumin Triglycerides LDL Cholesterol Direct HDL Cholesterol PTH Intact Urine Creatinine Urine Total Protein 06/29/22 06/30/22 06/30/22 23:07 00:18 00:58 WBC RBC Hgb Hct Lymph % (Auto) [place] # (Auto) Seg Neutrophils % Seg Neutrophils # PT INR Heparin Anti-Xa Level Sodium Potassium Chloride Carbon Dioxide BUN Creatinine Glucose POC Glucose 163 H 178 H 189 H Hemoglobin A1c Calcium Phosphorus Magnesium AST Troponin T NT-Pro-B Natriuret Pep Albumin Triglycerides LDL Cholesterol Direct HDL Cholesterol PTH Intact Urine Creatinine Urine Total Protein 06/30/22 06/30/22 06/30/22 01:57 02:59 03:53 WBC RBC Hgb Hct Lymph % (Auto) [place] # (Auto) Seg Neutrophils % Seg Neutrophils # PT INR Heparin Anti-Xa Level Sodium Potassium Chloride Carbon Dioxide BUN Creatinine Glucose POC Glucose 150 H 147 H 122 H Hemoglobin A1c Calcium Phosphorus Magnesium AST Troponin T NT-Pro-B Natriuret Pep Albumin Triglycerides LDL Cholesterol Direct HDL Cholesterol PTH Intact Urine Creatinine Urine Total Protein 06/30/22 06/30/22 06/30/22 04:56 05:25 05:52 WBC RBC Hgb Hct Lymph % (Auto) [place] # (Auto) Seg Neutrophils % Seg Neutrophils # PT INR Heparin Anti-Xa Level Sodium 132 L Potassium Chloride Carbon Dioxide 15 L BUN 53 H Creatinine 1.7 H Glucose 137 H POC Glucose 110 H 150 H Hemoglobin A1c Calcium Phosphorus Magnesium AST Troponin T NT-Pro-B Natriuret Pep Albumin Triglycerides LDL Cholesterol Direct HDL Cholesterol PTH Intact Urine Creatinine Urine Total Protein 06/30/22 06/30/22 06/30/22 07:25 08:20 09:20 WBC RBC Hgb Hct Lymph % (Auto) [place] # (Auto) Seg Neutrophils % Seg Neutrophils # PT INR Heparin Anti-Xa Level Sodium Potassium Chloride Carbon Dioxide BUN Creatinine Glucose POC Glucose 133 H 119 H 128 H Hemoglobin A1c Calcium Phosphorus Magnesium AST Troponin T NT-Pro-B Natriuret Pep Albumin Triglycerides LDL Cholesterol Direct HDL Cholesterol PTH Intact Urine Creatinine Urine Total Protein 06/30/22 06/30/22 06/30/22 10:21 10:59 11:25 WBC RBC Hgb Hct Lymph % (Auto) [place] # (Auto) Seg Neutrophils % Seg Neutrophils # PT INR Heparin Anti-Xa Level Sodium 132 L Potassium Chloride Carbon Dioxide 16 L BUN 49 H Creatinine 1.7 H Glucose 168 H POC Glucose 133 H 232 H Hemoglobin A1c Calcium 8.1 L Phosphorus Magnesium AST Troponin T NT-Pro-B Natriuret Pep Albumin Triglycerides LDL Cholesterol Direct HDL Cholesterol PTH Intact Urine Creatinine Urine Total Protein 06/30/22 06/30/22 07/01/22 16:15 21:30 05:10 WBC RBC Hgb Hct Lymph % (Auto) [place] # (Auto) Seg Neutrophils % Seg Neutrophils # PT INR Heparin Anti-Xa Level 0.24 L Sodium Potassium Chloride Carbon Dioxide BUN Creatinine Glucose POC Glucose 325 H 279 H Hemoglobin A1c Calcium Phosphorus Magnesium AST Troponin T NT-Pro-B Natriuret Pep Albumin Triglycerides LDL Cholesterol Direct HDL Cholesterol PTH Intact Urine Creatinine Urine Total Protein 07/01/22 07/01/22 07/01/22 05:10 07:38 09:13 WBC RBC Hgb Hct Lymph % (Auto) [place] # (Auto) Seg Neutrophils % Seg Neutrophils # PT 15.9 H INR 1.14 H Heparin Anti-Xa Level Sodium 132 L Potassium Chloride 97.8 L Carbon Dioxide 19 L BUN 34 H Creatinine 1.3 H Glucose 250 H POC Glucose 235 H Hemoglobin A1c Calcium Phosphorus Magnesium AST Troponin T NT-Pro-B Natriuret Pep Albumin Triglycerides LDL Cholesterol Direct HDL Cholesterol PTH Intact Urine Creatinine Urine Total Protein Allied health notes reviewed: nursing
--- NOTE | 2022-07-01 13:50 | Progress Note ---
Assessment and Plan 1. Acute kidney injury: Suspect vasomotor STEFFANIE in the setting of DKA/volume depletion. Renal US negative for hydro/stone. Baseline renal function unknown. Monitor renal function. Creatinine level improving. Avoid nephrotoxic agents. Meds dosage based on GFR. 2. FEN: Hyperkalemia, improved. Anion-gap Metabolic acidosis, 2/2 DKA, monitor. Replete lytes as needed. Monitor lytes and volume status. 3. DKA: Admits to stop taking meds at home. S/p Insulin drip. Improved. Monitor. 4. Acute DVT involving the external iliac veins bilaterally with thrombus extending distally bilaterally: Heparin drip. Followed by Vascular. 5. Hypertension: Monitor BP. 6. H/o COPD. Subjective: Patient was seen and examined at the bedside. Examination: General appearance: well-developed, obese, appears stated age, no distress HEENT: atraumatic, SANDRA, no icterus Neck: trachea midline Respiratory: ctab Heart: S1S2, regular, no murmur Abdomen: soft, obese, bowel sounds heard, NT Integumentary: no rash on the inspected area Neurologic: alert, conversing, generalized weakness Ext: trace Ext and dependent edema Subjective Date of service: 07/01/22 Principal diagnosis: AHRF; DKA; Hyperkalemia; COPD; ? cellulitis; PVD; STEFFANIE; Morbid obesity; ?JACKLYN Objective - Vital Signs Vital signs: Vital Signs - 12hr 07/01/22 07/01/22 07/01/22 02:00 03:00 04:00 Temperature 99.5 F Pulse Rate 76 69 70 Pulse Rate [ 70 From Monitor] Respiratory 21 20 21 Rate Blood Pressure 159/82 157/75 152/71 O2 Sat by Pulse 93 93 91 Oximetry 07/01/22 07/01/22 07/01/22 05:00 06:00 07:00 Temperature Pulse Rate 69 67 68 Pulse Rate [ From Monitor] Respiratory 19 22 25 H Rate Blood Pressure 156/78 165/76 151/72 O2 Sat by Pulse 92 98 93 Oximetry 07/01/22 07/01/22 07/01/22 07:15 07:41 07:55 Temperature 99.4 F Pulse Rate Pulse Rate [ 64 From Monitor] Respiratory 19 Rate Blood Pressure O2 Sat by Pulse 100 94 Oximetry 07/01/22 07/01/22 07/01/22 07:56 08:00 09:00 Temperature Pulse Rate 65 58 L 77 Pulse Rate [ From Monitor] Respiratory 20 21 Rate Blood Pressure 162/73 153/68 O2 Sat by Pulse 100 96 Oximetry - Lab 07/01/22 05:10 07/01/22 05:10 Most recent lab results Calcium 8.5 mg/dL (8.4-10.2) 07/01/22 05:10 Phosphorus 2.80 mg/dL (2.5-4.5) D 07/01/22 05:10 Magnesium 2.30 mg/dL (1.7-2.3) 07/01/22 05:10 Urine Creatinine 85.4 mg/dL (0.1-20.0) H 06/28/22 08:10 Urine Sodium 10 mmol/L 06/28/22 08:10 Urine Total Protein 49 mg/dL (5-11.8) H 06/28/22 08:10 Medications & Allergies - Medications Allergies/Adverse Reactions: Allergies ciprofloxacin [From Cipro] Allergy (Verified 05/28/22 12:07) Unknown Penicillins Allergy (Verified 05/28/22 12:07) Unknown Home Medications: Home Medications Medication Instructions Recorded Confirmed Last Taken Type Apixaban [Eliquis] 5 mg PO BID 04/13/21 06/28/22 Unknown History Empagliflozin [Jardiance] 25 mg DAILY 04/13/21 06/28/22 Unknown History Fenofibrate 160 mg PO DAILY 04/13/21 06/28/22 Unknown History Glimepiride 4 mg BID 04/13/21 06/28/22 Unknown History Insulin Aspart (Nf) [NovoLOG 100 unit SQ PRN PRN 04/13/21 06/28/22 Unknown History Flexpen] Levothyroxine [Synthroid] 112 mcg PO QAM 04/13/21 06/28/22 Unknown History Lisinopril/Hydrochlorothiazide 1 tab PO QDAY 04/13/21 06/28/22 Unknown History [Zestoretic 20-12.5 mg] [place] Carbonate 600 mg PO QHS 04/13/21 06/28/22 Unknown History [place] Carbonate [Eskalith] 150 mg PO QAM 04/13/21 06/28/22 Unknown History Lurasidone [Latuda] 40 mg QHS 04/13/21 06/28/22 Unknown History Oxybutynin Chloride [Ditropan Xl] 15 mg PO QDAY 04/13/21 06/28/22 Unknown History Semaglutide [Ozempic] 1 unit SQ 1XW 04/13/21 06/28/22 Unknown History Venlafaxine HCl [Venlafaxine HCl 150 mg DAILY 04/13/21 06/28/22 Unknown History ER] buPROPion SR [Wellbutrin SR] 100 mg PO DAILY 04/13/21 06/28/22 Unknown History Doxycycline Hyclate [Doxycycline 100 mg PO Q12HR 7 Days #14 04/14/21 06/28/22 Unknown Rx Hyclate TAB] Active Medications: Generic Name Dose Route Start Last Admin Trade Name Freq PRN Reason Stop Dose Admin Acetaminophen 650 mg 06/28/22 03:09 Acetaminophen 325 Mg Tab PO Q6H PRN Pain MILD(1-3)/Fever >100.5/MURILLO Dextrose 50 ml 06/30/22 09:00 Dextrose 50% In Water (25gm) 50 Ml Syringe IV Q30MIN PRN Hypoglycemia Protocol Divalproex Sodium 250 mg 06/30/22 20:00 07/01/22 13:[address] 250 Mg Tab PO 250 mg Q6H SHANTHI Administration Famotidine 20 mg 06/29/22 10:00 07/01/22 09:49 Famotidine 20 Mg Tab PO 20 mg QDAY SHANTHI Administration Haloperidol 5 mg 06/30/22 22:00 07/01/22 09:49 Haloperidol 5 Mg Tab PO 5 mg BID SHANTHI Administration Heparin Sodium (Porcine) 5,000 unit 06/28/22 14:29 Heparin Prn Bolus(Standard Intensity Drip) 40 unit/kg (5000 unit) IV Q6H PRN For Heparin Anti-Xa < 0.1 Heparin Sodium/Sodium Chloride 25,000 unit in 250 mls @ 13.66 mls/hr 06/28/22 15:00 07/01/22 08:25 Heparin/ 0.45% Nacl-25,000 Unit/250 Ml IV 13 units/kg/hr TITR SHANTHI 17.758 mls/hr Administration Protocol 10 UNITS/KG/HR Sodium Chloride 1,000 mls @ 75 mls/hr 06/30/22 14:00 06/30/22 22:11 Nacl 0.45% 1000 Ml IV 07/02/22 23:58 75 mls/hr DIRECT SHANTHI Administration Insulin Glargine 35 units 06/30/22 22:00 07/01/22 09:49 Insulin Glargine 100 Units/Ml SUB-Q 35 units BID SHANTHI Administration Insulin Human Regular 0 units 06/30/22 11:30 07/01/22 13:34 Insulin Regular, Human 100 Units/1 Ml SUB-Q 6 units ACHS SHANTHI Administration Protocol Insulin Human Regular 8 units 07/01/22 07:35 07/01/22 13:32 Insulin Regular, Human 100 Units/1 Ml SUB-Q 8 units AC SHANTHI Administration Morphine Sulfate 2 mg 06/28/22 03:09 06/28/22 18:06 Morphine 2 Mg/1 Ml Inj IV 2 mg Q4H PRN Administration Pain, Moderate (4-6) Ondansetron HCl 4 mg 06/28/22 03:09 06/28/22 05:44 Ondansetron 4 Mg/2 Ml Inj IV 4 mg Q8H PRN Administration Nausea And Vomiting Sodium Chloride 10 ml 06/28/22 10:00 07/01/22 10:10 Sodium Chloride 0.9% 10 Ml Flush Syringe IV 10 ml BID SHANTHI Administration Sodium Chloride 10 ml 06/28/22 03:09 Sodium Chloride 0.9% 10 Ml Flush Syringe IV PRN PRN LINE FLUSH
[2022-07-01] MEDS: SODIUM CHLORIDE 0.45% 1000 ML 1,000 ML IV SCH (19:15)
--- NOTE | 2022-07-01 21:32 | Progress Note ---
Subjective - Reason for Consult Consult date: 07/01/22 Reason for consult: adjustment for meds for bipolar d/o - Chief Complaint Chief complaint: Shortness of Breath Mental Status Exam - Vital signs Last Vital Signs Temp 98.0 F 07/01/22 15:37 Pulse 70 07/01/22 15:37 Resp 20 07/01/22 15:37 BP 144/68 07/01/22 15:37 Pulse Ox 97 07/01/22 15:37 - Exam Narrative exam: 06/29: Patient seen today. Patient alert and oriented x1 and cooperative throughout the interview. When pt intially asked how she's feeling pt reports "I 'm here." When asked again, patient jokes "thirsty." Patient denies depressive sx or manic symptoms. Patient denies SI HI AVH. Patient reports good appetite and okay sleep. 06/30: Patient seen today. Patient reports she feels like she's getting better. Patient requests to get out of her bed and sit in chair at bedside. Patient reports good mood, okay sleep, and good appetite. Patient denies depressive symptoms or manic symptoms. Patient denies SI HI AVH. Orientation: person Affect: normal Mood: calm Thought Process: Intact Perceptions: none Speech: minimal response Concentration: distractible Motor activity: normal Level of consciousness: alert Memory: Intact Sleep Symptoms: None Interaction: cooperative Assessment and Plan Bipolar disorder - Patient Problems (1) Bipolar disorder Current Visit: Yes Status: Acute Qualifiers: Active/Remission status: in partial remission Plan to address problem: Maintain haldol 5 mg BID Maintain Depakote 250 mg q6h Risks, benefits and alternatives of medications discussed with the patient, questions answered and consent obtained from patient. PSYCHOTHERAPY: Supportive psychotherapy provided MEDICAL: Per primary team DELIRIUM PRECAUTIONS: Please re-orient patient frequently, keep lights on during the day, and minimize benzodiazepines and opiates as these medications could worsen patient's confusion. MUSIC CRITIC: Defer to primary DISPOSITION: Do not recommend acute inpatient psychiatric hospitalization at this time. FOLLOW-UP: Will follow Thank you for the consult. Please contact with any questions and/or concerns. Case staffed with Dr. Tatum Ace.
[2022-07-02] MEDS: DIVALPROEX DR 250 MG TAB PO SCH ×4 (01:22→20:00)
[2022-07-02] MEDS: INSULIN REGULAR, HUMAN 100 UNITS/1 ML SUB-Q SCH ×7 (07:30→23:33)
--- NOTE | 2022-07-02 07:45 | Progress Note ---
Assessment and Plan Assessment and plan: This is a 52-year-old female with known past medical history of type 2 diabetes mellitus, hypertension, Nicotine dependence, COPD, PE/DVT was on Eliquis at home, medical noncompliance, and bipolar disorder admitted for DKA and STEFFANIE Hospital Course to Date: 06/28: Mentation improved, denied any abdominal pain, no nausea/vomiting. BG and anio gap still elevated. Continue insulin gtt and IVF resuscitation per protocol. Monitor and replace electrolytes as needed, serial Labs ordered. Transition to subQ once gap is closed. BLE ischemia noted, extremities are purple and cool to touch, palpable pedal pulses appreciated. Patient reported that she has a history of PE/DVT on Eliquis but she admitted that she has not been complaints with any of her medications for 3 days. 06/29: Anion Gap still greater than 20, and CO2 15 this am. 1amp of bcarb given, continue Insulin gtt and IVF resuscitation per protocol. repeat BMP ordered, will transition to subQ once gap is closed. BLE doppler noted with extensive BLE DVT, patient remains on the heparin gtt. Patient reported she was on PO Eliquis at home and had a IVF filter placed. Vascular Surgery is also following, appreciate recommendations. Hyponatremia improving, appreciate Nephrology's recs. 06/30: Remains stable. Still on the DKA protocol, BG level has been less than 200s for over 24hrs, anion gap still in the 20s this am, probably due to STEFFANIE. Will transition patient to Subq insulin. Patient remains on the heparin gtt. BLE is unchanged, CHRISTOPHER hose applied. Per vascular Surgery, possible interventions/thrombectomy once the patient is stabilized. 07/01: Transition to subQ insulin yesteday. Patient remains stable, tolerating PO intake. Insulin regimen adjusted for hyperglycemia, continue BG check ACHS and IVF hydration for now. Hyponatremia is improving, nephrology is following. Patient remains on heparin gtt per protocol for BLE ischemia. Possible interventions/thrombectomy tomorrow per Vascular Surgery. 07/02: Patient seen and examined at the bedside. Remains stable on RA, VSS. Yesterday was transitioned to SubQ insulin, tolerating PO intake. BLE ischemia is unchanged with palpable pedal pulses. CHRISTOPHER Hose applied per Vascular Surgery. Discussed with vascular surgery today they are going to proceed with bilateral thrombectomy. We will continue on heparin drip at this time. Education provided to the patient on blood sugar control. Compliance discussion also had for 15 minutes counseling. Anticipate discharge in 24 to 48 hours postprocedure #Diabetic Ketoacidosis(DKA) #Uncontrolled Type 2 Diabetes Mellitus #Acute Metabolic Encephalopathy #H/O COPD #Tobacco Dependence #Hypertension #Leukocytosis- most likely due to DKA #Acute Kidney Injury(STEFFANIE) most likely Vasomotor Nephropathy #Hyponatremia #Hyperkalemia #BLE Ischemia #Current Extensive DVT in BLE- on Heparin gtt per protocol #History of DVT/PE on Eliquis at Home- S/p IVC Filter #Medical Noncompliance #Bipolar Disorder Plan: - Transition to SubQ insulin - Consistent Carbs diet - Lantus BID and SSI and BG check ACHS - Continue 1/2NS at 75ml/hr for hyponatremia - Nephrology consulted, appreciate recommendations - Heparin gtt initiated per protocol - Vascular Surgery consulted, appreciate recommendations - Per vascular Surgery, possible interventions/thrombectomy once the patient is stabilized - Strict intake and output - Avoid nephrotoxic medications; Renally dose medications - Monitor and replace electrolytes as needed, Monitor anion gap, serial Labs ordered. - PRN O2 supplementation, SPO2 goal above 92% - Continue blood pressure monitor per protocol, maintain SBP less than 160 - Smoking cessation provided. Patient verbalized understanding and agreed with current information - Resume home medications once list is available - Avoid benzodiazepine to reduce the possibility of delirium - PRN Analgesia for pain control - PRN Antiemetic for nausea vomiting - Maintenance of sleep-wake cycle - Mental Health/Psych Consult - GI/DVT Prophylaxis #Advance Care Planning - Disease education data, care plan, diagnoses, and prognosis were discussed with patient at the bedside. Patient is a FULL code. Patient acknowledged understanding and agreed with current care plan. History Interval history: Patient seen and examined, no new complaints. awaiting thrombectomy Hospitalist Physical - Physical exam Narrative exam: - Physical exam Narrative exam: General appearance: Present: no acute distress, well-nourished, obese - EENT Eyes: Present: PERRL, EOM intact ENT: hearing intact - Neck Neck: Present: normal ROM - Respiratory Respiratory effort: normal Respiratory: bilateral: diminished - Cardiovascular Rhythm: regular Heart Sounds: Present: S1 & S2 - Extremities Extremities: no ischemia, pulses intact, pulses symmetrical, abnormal (BLE ischemia) Extremity abnormal: edema, cold (BLE ), other (Discolored) - Peripheral Assessment Generalized Edema Type: Non-pitting Edema Degree: 3+ Capillary Refill: > 3 seconds Skin Temperature: Cool Peripheral Pulses: within normal limits - Abdominal General gastrointestinal: soft, non-distended, normal bowel sounds, other (Obese) - Integumentary Integumentary: Present: erythema (BLE, cool to touch) - Psychiatric Psychiatric: appropriate mood/affect, cooperative - Neurologic Neurologic: moves all extremities - Allied Health Allied health notes reviewed: nursing, case management - Constitutional Vitals: Temp Pulse Resp BP Pulse Ox 98.5 F 69 20 143/66 93 07/02/22 05:00 07/02/22 05:00 07/02/22 05:00 07/02/22 05:00 07/02/22 05:00 General appearance: Present: no acute distress, obese HEART Score - HEART Score Troponin: Troponin T 0.080 ng/mL (0.00-0.029) H 06/27/22 20:48 Results - Labs CBC & Chem 7: 07/02/22 08:12 07/02/22 08:12 Labs: Laboratory Last Values WBC 6.9 K/mm3 (4.5-11.0) 07/01/22 05:10 RBC 4.55 M/mm3 (3.65-5.03) 07/01/22 05:10 Hgb 13.7 gm/dl (10.1-14.3) 07/01/22 05:10 Hct 42.3 % (30.3-42.9) 07/01/22 05:10 MCV 93 fl (79-97) 07/01/22 05:10 MCH 30 pg (28-32) 07/01/22 05:10 MCHC 33 % (30-34) 07/01/22 05:10 RDW 14.7 % (13.2-15.2) 07/01/22 05:10 Plt Count 179 K/mm3 (140-440) 07/01/22 05:10 Lymph % (Auto) 6.3 % (13.4-35.0) L 06/27/22 20:48 [place] % (Auto) 4.8 % (0.0-7.3) 06/27/22 20:48 Eos % (Auto) 0.0 % (0.0-4.3) 06/27/22 20:48 Baso % (Auto) 0.3 % (0.0-1.8) 06/27/22 20:48 Lymph # (Auto) 1.2 K/mm3 (1.2-5.4) 06/27/22 20:48 [place] # (Auto) 0.9 K/mm3 (0.0-0.8) H 06/27/22 20:48 Eos # (Auto) 0.0 K/mm3 (0.0-0.4) 06/27/22 20:48 Baso # (Auto) 0.1 K/mm3 (0.0-0.1) 06/27/22 20:48 Seg Neutrophils % 88.6 % (40.0-70.0) H 06/27/22 20:48 Seg Neutrophils # 16.5 K/mm3 (1.8-7.7) H 06/27/22 20:48 PT 15.9 Sec. (12.2-14.9) H 07/01/22 09:13 INR 1.14 (0.87-1.13) H 07/01/22 09:13 APTT 30.3 Sec. (24.2-36.6) 06/28/22 15:07 Heparin Anti-Xa Level 0.27 U.I./ml (0.3-0.7) L 07/01/22 23:14 Sodium 132 mmol/L (137-145) L 07/01/22 05:10 Potassium 4.3 mmol/L (3.6-5.0) 07/01/22 05:10 Chloride 97.8 mmol/L (98-107) L 07/01/22 05:10 Carbon Dioxide 19 mmol/L (22-30) L 07/01/22 05:10 Anion Gap 20 mmol/L 07/01/22 05:10 BUN 34 mg/dL (7-17) H 07/01/22 05:10 Creatinine 1.3 mg/dL (0.6-1.2) H 07/01/22 05:10 Estimated GFR 43 ml/min 07/01/22 05:10 BUN/Creatinine Ratio 26 % 07/01/22 05:10 Glucose 250 mg/dL (65-100) H 07/01/22 05:10 POC Glucose 235 mg/dL (70-105) H 07/01/22 07:38 Hemoglobin A1c 9.7 % (4-6) H 06/28/22 20:31 Lactic Acid 1.90 mmol/L (0.7-2.0) 06/29/22 10:47 Calcium 8.5 mg/dL (8.4-10.2) 07/01/22 05:10 Phosphorus 2.80 mg/dL (2.5-4.5) D 07/01/22 05:10 Magnesium 2.30 mg/dL (1.7-2.3) 07/01/22 05:10 Total Bilirubin 0.90 mg/dL (0.1-1.2) 06/27/22 20:48 AST 50 units/L (5-40) H 06/27/22 20:48 ALT 28 units/L (7-56) 06/27/22 20:48 Alkaline Phosphatase 97 units/L (35-129) 06/27/22 20:48 Troponin T 0.080 ng/mL (0.00-0.029) H 06/27/22 20:48 NT-Pro-B Natriuret Pep 4137 pg/mL (0-900) H 06/27/22 20:48 Total Protein 7.0 g/dL (6.3-8.2) 06/27/22 20:48 Albumin 3.1 g/dL (3.9-5) L 06/27/22 20:48 Albumin/Globulin Ratio 0.8 % 06/27/22 20:48 Triglycerides 349 mg/dL (2-149) H 06/27/22 20:48 Cholesterol 156 mg/dL (50-199) 06/27/22 20:48 LDL Cholesterol Direct 37 mg/dL (50-130) L 06/27/22 20:48 HDL Cholesterol 38 mg/dL (40-59) L 06/27/22 20:48 Cholesterol/HDL Ratio 4.10 % 06/27/22 20:48 Procalcitonin 2.51 ng/mL (<0.15) 06/29/22 10:47 PTH Intact 382.4 pg/mL (15-65) H 06/29/22 04:21 Urine Creatinine 85.4 mg/dL (0.1-20.0) H 06/28/22 08:10 Protein/Creatinin Ratio 0.57 06/28/22 08:10 Urine Sodium 10 mmol/L 06/28/22 08:10 Urine Total Protein 49 mg/dL (5-11.8) H 06/28/22 08:10 Tian/IV: Voiding Method External Female Catheter Active Medications - Current Medications Current Medications: Generic Name Dose Route Start Last Admin Trade Name Freq PRN Reason Stop Dose Admin Acetaminophen 650 mg 06/28/22 03:09 Acetaminophen 325 Mg Tab PO Q6H PRN Pain MILD(1-3)/Fever >100.5/MURILLO Dextrose 50 ml 06/30/22 09:00 Dextrose 50% In Water (25gm) 50 Ml Syringe IV Q30MIN PRN Hypoglycemia Protocol Divalproex Sodium 250 mg 06/30/22 20:00 07/02/22 01:[address] 250 Mg Tab PO 250 mg Q6H SHANTHI Administration Famotidine 20 mg 06/29/22 10:00 07/01/22 09:49 Famotidine 20 Mg Tab PO 20 mg QDAY SHANTHI Administration Haloperidol 5 mg 06/30/22 22:00 07/01/22 21:29 Haloperidol 5 Mg Tab PO 5 mg BID SHANTHI Administration Heparin Sodium (Porcine) 5,000 unit 06/28/22 14:29 Heparin Prn Bolus(Standard Intensity Drip) 40 unit/kg (5000 unit) IV Q6H PRN For Heparin Anti-Xa < 0.1 Heparin Sodium/Sodium Chloride 25,000 unit in 250 mls @ 13.66 mls/hr 06/28/22 15:00 07/02/22 00:38 Heparin/ 0.45% Nacl-25,000 Unit/250 Ml IV 15 units/kg/hr TITR SHANTHI 20.49 mls/hr Titration Protocol 10 UNITS/KG/HR Sodium Chloride 1,000 mls @ 75 mls/hr 06/30/22 14:00 07/01/22 19:15 Nacl 0.45% 1000 Ml IV 07/02/22 23:58 75 mls/hr DIRECT SHANTHI Administration Insulin Glargine 35 units 06/30/22 22:00 07/01/22 21:34 Insulin Glargine 100 Units/Ml SUB-Q 35 units BID SHANTHI Administration Insulin Human Regular 0 units 06/30/22 11:30 07/01/22 21:30 Insulin Regular, Human 100 Units/1 Ml SUB-Q 6 units ACHS SHANTHI Administration Protocol Insulin Human Regular 8 units 07/01/22 07:35 07/01/22 17:20 Insulin Regular, Human 100 Units/1 Ml SUB-Q 8 units AC SHANTHI Administration Morphine Sulfate 2 mg 06/28/22 03:09 06/28/22 18:06 Morphine 2 Mg/1 Ml Inj IV 2 mg Q4H PRN Administration Pain, Moderate (4-6) Ondansetron HCl 4 mg 06/28/22 03:09 06/28/22 05:44 Ondansetron 4 Mg/2 Ml Inj IV 4 mg Q8H PRN Administration Nausea And Vomiting Sodium Chloride 10 ml 06/28/22 10:00 07/01/22 21:35 Sodium Chloride 0.9% 10 Ml Flush Syringe IV 10 ml BID SHANTHI Administration Sodium Chloride 10 ml 06/28/22 03:09 Sodium Chloride 0.9% 10 Ml Flush Syringe IV PRN PRN LINE FLUSH Nutrition/Malnutrition Assess - Dietary Evaluation Nutrition/Malnutrition Findings: Nutrition Notes Start: 06/28/22 11:39 Freq: Status: Active Protocol: Document 06/28/22 11:39 CHRISTAL (Rec: 06/28/22 11:49 CHRISTAL [email or web address]) Nutrition Notes Need for Assessment generated from: MD Order,Education Initial or Follow up Assessment Current Diagnosis Acute Kidney Injury,COPD, Diabetes,Hypertension Other Pertinent Diagnosis DKA, Hyperglycemia, SOB, Nausea, Hyperkalemia, Hyponatremia,... Current Diet NPO (since 06/28 03:11). Labs/Tests 06/28: Na 125, K 5.4, Cl 87.6, CO2 18, BUN 58, Crea 2.5, Glu 199, Phos 6.9. Pertinent Medications 06/28: D5/0.45ns @ 125ml/hr, Insulin 4U, others nutritionally unremarkable. 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 Weight Status Morbidly Obese Subjective/Other Information RD consult for nutrition education and skin risk assessments. Pt is currently on NPO. Pt is on Nasal Cannula, O2 saturation @ 98%, according to Vital Signs notes. Pt still in critical condition , not a candidate for Nutrition Education at the time, will assess feasibility on F/U. Pt presents Bilateral LE redness/echimosis as sign of concern for skin risk at the time, according to Physical Assessment History notes. Percent of energy/protein needs met: Pt is on NPO. When pertinent, start with modified Consistent Carbohydrates -Renal- Diet, which provides for energy/ protein needs (2,061 Kcal/91 g ) during LOS. Burn Absent Trauma Absent GI Symptoms Nausea Food Allergy No Skin Integrity/Comment Bilateral LE redness/echimosis . Minimum of two criteria No Fluid Accumulation N/A Reduced Musician Instrumental Strength N/A (non-severe) Protein-Calorie Malnutrition N\A #1 Nutrition Diagnosis Overweight/obesity Etiology Possibly associated with lifestyle. As Evidenced by Signs and Symptoms BMI: 51.7 Kg/m2. Is patient on ventilator? No Is Patient Ambulatory and/or Out of Bed No REE-(Colbert-St. Jeor-confined to bed) 2356.548 Kcal/Kg value to use for calculation 11 Approximate Energy Requirements Using 1503 kcal/Kg Calculation Used for Recommendations Kcal/kg Additional Notes Protein: 0.8-1.2 g/Kg AdjBW; 77-115 g/day. Fluids: 1 ml/Kcal, or as per MD. Nutrition Intervention Change Diet Order: When pertinent, start with modified Consistent Carbohydrates -Renal- Diet, advance as tolerated. Goal #1 Adjust the dietary intervention to better serve Pt's energy/protein needs and clinical conditions during LOS . Follow-Up By: 07/02/22 Additional Comments Nutrition education will be provided at F/U, if feasible. When pertinent, start monitoring food tolerance, %PO intake of meals, and BM.
[2022-07-02 09:02] LABS: Hematocrit 41.7 % (30.3-42.9); Hemoglobin 13.9 gm/dl (10.1-14.3); Mean Corpuscular HGB Conc 33 % (30-34); Mean Corpuscular Volume 92 fl (79-97); Platelet Count 224 K/mm3 (140-440); Red Blood Count 4.56 M/mm3 (3.65-5.03); Red Cell Distribution Width 14.5 % (13.2-15.2)
[2022-07-02 09:08] LABS: Calcium 8.9 mg/dL (8.4-10.2)
[2022-07-02] MEDS: INSULIN GLARGINE 100 UNITS/ML SUB-Q SCH ×2 (09:08→23:33)
[2022-07-02] MEDS: FAMOTIDINE 20 MG TAB PO SCH (09:11)
[2022-07-02] MEDS: HALOPERIDOL 5 MG TAB PO SCH ×2 (09:11→21:43)
[2022-07-02] MEDS ORDERED: LIDOCAINE 1%/EPINEPHRINE 1:100,000 VIAL (20 ML) INFILTRATI ONE ×2 (10:30→13:11)
[2022-07-02] MEDS ORDERED: HEPARIN/NS 5000 UNIT/500ML 1,500 ML IR ONE (10:30)
[2022-07-02] MEDS: HEPARIN/ 0.45% NACL DRIP 25,000 UNIT/250 ML BAG IV SCH (10:47)
[2022-07-02] MEDS ORDERED: LIDOCAINE MPF (2%) 20 MG/1 ML VIAL 5 ML ONE (11:59)
[2022-07-02] MEDS ORDERED: HYDROmorphone 1 MG/1 ML INJ ONE (11:59)
[2022-07-02] MEDS ORDERED: ONDANSETRON 4 MG/2 ML INJ ONE (11:59)
--- NOTE | 2022-07-02 11:59 | Anesthesia Consultation ---
Anesthesia Consult and Med Hx Date of service: 07/02/22 - Airway Anesthetic Teeth Evaluation: Good ROM Head & Neck: Adequate Mental/Hyoid Distance: Adequate Mallampati Class: Class II Intubation Access Assessment: Good - Pre-Operative Health Status ASA Pre-Surgery Classification: ASA4 Proposed Anesthetic Plan: MAC (GA if needed) - Pulmonary Hx Smoking: Yes COPD: Yes Hx Sleep Apnea: No - Cardiovascular System Hx Hypertension: Yes Hx Heart Attack/AMI: No Hx Cardia Arrhythmia: Yes (AFib/flutter) Hx Peripheral Vascular Disease: Yes (DVT) - Central Nervous System Hx Psychiatric Problems: Yes (Bipolar) - Gastrointestinal Hx Gastroesophageal Reflux Disease: No - Endocrine Hx Renal Disease: Yes (STEFFANIE) Hx Non-Insulin Dependent Diabetes: Yes (DKA admission) Hx Hyperthyroidism: Yes - Hematic Hx Sickle Cell Disease: No - Other Systems Hx Alcohol Use: Yes Hx Obesity: Yes (BMI 53)
[2022-07-02] MEDS ORDERED: propofoL 200 MG/20 ML VIAL IV ONE ×4 (12:00)
[2022-07-02] MEDS ORDERED: KETAMINE/STERILE WATER 50 MG/ML SYRINGE ONE (12:00)
--- NOTE | 2022-07-02 12:02 | Anesthesia Day of Surgery ---
Anesthesia Day of Surgery - Day of Surgery Patient Examined: Yes Patient H&P Reviewed: Yes Patient is NPO: Yes
[2022-07-02] MEDS ORDERED: SODIUM CHLORIDE 0.9% 1000 ML 1,000 ML ONE (12:21)
[2022-07-02] MEDS: HEPARIN 10,000 UNITS/10 ML VIAL ONE ×7 (12:57→16:49)
[2022-07-02] MEDS ORDERED: WATER FOR INJ Sterile (PF) 10 ML ONE (12:58)
[2022-07-02] MEDS ORDERED: ALTEPLASE 2 MG INJ ONE (12:58)
--- NOTE | 2022-07-02 13:15 | Progress Note ---
Assessment and Plan 1. Acute kidney injury: Suspect vasomotor STEFFANIE in the setting of DKA/volume depletion. Renal US negative for hydro/stone. Monitor renal function. Creatinine level improving. Avoid nephrotoxic agents. Meds dosage based on GFR. 2. FEN: Hyperkalemia, improved. Anion-gap Metabolic acidosis, 2/2 DKA, monitor. Replete lytes as needed. Monitor lytes and volume status. 3. DKA: Admits to stop taking meds at home. S/p Insulin drip. Improved. Monitor. 4. Acute DVT involving the external iliac veins bilaterally with thrombus extending distally bilaterally: Heparin drip. Followed by Vascular. 5. Hypertension: Monitor BP. 6. H/o COPD. Subjective: Patient was seen and examined at the bedside. Examination: General appearance: well-developed, obese, appears stated age, no distress HEENT: atraumatic, SANDRA, no icterus Neck: trachea midline Respiratory: ctab Heart: S1S2, regular, no murmur Abdomen: soft, obese, bowel sounds heard, NT Integumentary: no rash on the inspected area Neurologic: alert, conversing Ext: trace Ext and dependent edema Subjective Date of service: 07/02/22 Principal diagnosis: AHRF; DKA; Hyperkalemia; COPD; ? cellulitis; PVD; STEFFANIE; Morbid obesity; ?JACKLYN Objective - Vital Signs Vital signs: Vital Signs - 12hr 07/02/22 07/02/22 07/02/22 02:45 05:00 09:20 Temperature 98.5 F Pulse Rate 69 Pulse Rate [ 70 From Monitor] Respiratory 16 20 Rate Blood Pressure 143/66 [Left] O2 Sat by Pulse 96 93 95 Oximetry - Lab 07/03/22 12:20 07/03/22 12:20 Most recent lab results Calcium 8.9 mg/dL (8.4-10.2) 07/02/22 08:12 Phosphorus 2.10 mg/dL (2.5-4.5) L D 07/02/22 08:12 Magnesium 2.30 mg/dL (1.7-2.3) 07/02/22 08:12 Urine Creatinine 85.4 mg/dL (0.1-20.0) H 06/28/22 08:10 Urine Sodium 10 mmol/L 06/28/22 08:10 Urine Total Protein 49 mg/dL (5-11.8) H 06/28/22 08:10 Medications & Allergies - Medications Allergies/Adverse Reactions: Allergies ciprofloxacin [From Cipro] Allergy (Verified 05/28/22 12:07) Unknown Penicillins Allergy (Verified 05/28/22 12:07) Unknown Home Medications: Home Medications Medication Instructions Recorded Confirmed Last Taken Type Apixaban [Eliquis] 5 mg PO BID 04/13/21 06/28/22 Unknown History Empagliflozin [Jardiance] 25 mg DAILY 04/13/21 06/28/22 Unknown History Fenofibrate 160 mg PO DAILY 04/13/21 06/28/22 Unknown History Glimepiride 4 mg BID 04/13/21 06/28/22 Unknown History Insulin Aspart (Nf) [NovoLOG 100 unit SQ PRN PRN 04/13/21 06/28/22 Unknown History Flexpen] Levothyroxine [Synthroid] 112 mcg PO QAM 04/13/21 06/28/22 Unknown History Lisinopril/Hydrochlorothiazide 1 tab PO QDAY 04/13/21 06/28/22 Unknown History [Zestoretic 20-12.5 mg] [place] Carbonate 600 mg PO QHS 04/13/21 06/28/22 Unknown History [place] Carbonate [Eskalith] 150 mg PO QAM 04/13/21 06/28/22 Unknown History Lurasidone [Latuda] 40 mg QHS 04/13/21 06/28/22 Unknown History Oxybutynin Chloride [Ditropan Xl] 15 mg PO QDAY 04/13/21 06/28/22 Unknown History Semaglutide [Ozempic] 1 unit SQ 1XW 04/13/21 06/28/22 Unknown History Venlafaxine HCl [Venlafaxine HCl 150 mg DAILY 04/13/21 06/28/22 Unknown History ER] buPROPion SR [Wellbutrin SR] 100 mg PO DAILY 04/13/21 06/28/22 Unknown History Doxycycline Hyclate [Doxycycline 100 mg PO Q12HR 7 Days #14 04/14/21 06/28/22 Unknown Rx Hyclate TAB] Active Medications: Generic Name Dose Route Start Last Admin Trade Name Freq PRN Reason Stop Dose Admin Acetaminophen 650 mg 06/28/22 03:09 Acetaminophen 325 Mg Tab PO Q6H PRN Pain MILD(1-3)/Fever >100.5/MURILLO Dextrose 50 ml 06/30/22 09:00 Dextrose 50% In Water (25gm) 50 Ml Syringe IV Q30MIN PRN Hypoglycemia Protocol Divalproex Sodium 250 mg 06/30/22 20:00 07/02/22 08:[address] 250 Mg Tab PO Not Given Q6H SHANTHI Famotidine 20 mg 06/29/22 10:00 07/02/22 09:11 Famotidine 20 Mg Tab PO Not Given QDAY SHANTHI Haloperidol 5 mg 06/30/22 22:00 07/02/22 09:11 Haloperidol 5 Mg Tab PO Not Given BID SHANTHI Heparin Sodium (Porcine) 5,000 unit 06/28/22 14:29 Heparin Prn Bolus(Standard Intensity Drip) 40 unit/kg (5000 unit) IV Q6H PRN For Heparin Anti-Xa < 0.1 Heparin Sodium/Sodium Chloride 25,000 unit in 250 mls @ 13.66 mls/hr 06/28/22 15:00 07/02/22 10:47 Heparin/ 0.45% Nacl-25,000 Unit/250 Ml IV 15 units/kg/hr TITR SHANTHI 20.49 mls/hr Administration Protocol 10 UNITS/KG/HR Sodium Chloride 1,000 mls @ 75 mls/hr 06/30/22 14:00 07/01/22 19:15 Nacl 0.45% 1000 Ml IV 07/02/22 23:58 75 mls/hr DIRECT SHANTHI Administration Insulin Glargine 40 units 07/02/22 10:00 07/02/22 09:08 Insulin Glargine 100 Units/Ml SUB-Q Not Given BID SHANTHI Insulin Human Regular 0 units 06/30/22 11:30 07/02/22 07:30 Insulin Regular, Human 100 Units/1 Ml SUB-Q Not Given ACHS [facility] Protocol Insulin Human Regular 8 units 07/01/22 07:35 07/02/22 07:30 Insulin Regular, Human 100 Units/1 Ml SUB-Q 8 units AC [facility] Administration Morphine Sulfate 2 mg 06/28/22 03:09 06/28/22 18:06 Morphine 2 Mg/1 Ml Inj IV 2 mg Q4H PRN Administration Pain, Moderate (4-6) Ondansetron HCl 4 mg 06/28/22 03:09 06/28/22 05:44 Ondansetron 4 Mg/2 Ml Inj IV 4 mg Q8H PRN Administration Nausea And Vomiting Sodium Chloride 10 ml 06/28/22 10:00 07/02/22 09:08 Sodium Chloride 0.9% 10 Ml Flush Syringe IV 10 ml BID SHANTHI Administration Sodium Chloride 10 ml 06/28/22 03:09 Sodium Chloride 0.9% 10 Ml Flush Syringe IV PRN PRN LINE FLUSH
[2022-07-02] MEDS: SODIUM BICARBONATE 650 MG TAB PO SCH ×2 (14:00→21:43)
[2022-07-02] MEDS ORDERED: HEPARIN/NS 5000 UNIT/500ML 500 ML IR ONE (15:01)
[2022-07-02] MEDS ORDERED: HEPARIN/NS 5000 UNIT/500ML 1,000 ML IR ONE (15:07)
[2022-07-02] MEDS ORDERED: APIXABAN 5 MG TAB ONE (16:12)
--- NOTE | 2022-07-02 17:05 | Progress Note ---
Assessment and Plan Diabetic ketoacidosis Hyperkalemia COPD Possible JACKLYN / OHS Possible cellulitis Possible peripheral vascular disease STEFFANIE Morbid obesity HTN Tobacco use disorder Leukocytosis High anion gap metabolic acidosis Elevated serum BNP - follow H&H prn s/p thrombectomy - care home anticoagulation per vascular team recommendations - follow clinically off AB's (Procalcitonin unremarkable) - continue accuchecks with glycemic control per SSI for target blood glucose < 180 mg/dL - continue IV Heparin re: VTE - vascular surgery evaluation ongoing - continue to avoid nephrotoxins, renally dose all medications - continue BIPAP qhs with prn daytime use - continue to wean supplemental oxygen for target O2 sat's > 90% acutely - aspiration precautions - prn bronchodilators (YESSI) with pulmonary hygiene per RT - prn analgesia per pain score - Maintenance of sleep-wake cycle, avoid delirium - tobacco abstinence strongly counseled - G.I. & VTE prophylaxis - PT/OT/ROM exercises - mobility protocols for pressure ulcer prophylaxis - Monitor hemodynamics closely - continue other care per attending / other consultants - discharge planning ongoing concurrently .... Re-evaluate in am & prn Subjective Date of service: 07/02/22 Principal diagnosis: AHRF; DKA; Hyperkalemia; COPD; ? cellulitis; PVD; STEFFANIE; Morbid obesity; ?JACKLYN Interval history: Patient is seen today for: Acute hypoxemic respiratory failure; DKA; Hyperkalemia; COPD; Possible cellulitis; PVD; STEFFANIE; Morbid obesity Seen and examined at bedside; 24hour events reviewed; nursing and respiratory care staff consulted; no adverse overnight events reported to me; resting peacefully in bed eating lunch; remains on IV Heparin; s/p thrombectomy; feels well; denies acute chest pains or SOB; denies any bleeding diathesis Objective Vital Signs - 12hr 07/02/22 07/02/22 09:20 10:00 O2 Sat by Pulse 95 98 Oximetry Constitutional: no acute distress Eyes: non-icteric ENT: oropharynx moist Neck: supple, no lymphadenopathy, no JVD, other (large circumference) Effort: mildly labored Ascultation: Bilateral: clear, diminished breath sounds Percussion: Bilateral: not dull Cardiovascular: regular rate and rhythm Gastrointestinal: normoactive bowel sounds, non-tender, tender, non-distended Integumentary: rash (shins), other (erythema to shins) Extremities: no cyanosis, pink and warm, no ischemia or petechiae, edema (trace to 1+) Neurologic: normal mental status, non-focal exam (grossly), pupils equal and round, motor strength normal and Psychiatric: mood appropriate, affect normal CBC and BMP: 07/02/22 20:28 07/02/22 20:28 ABG, PT/INR, D-dimer: PT/INR, D-dimer PT 15.9 Sec. (12.2-14.9) H 07/01/22 09:13 INR 1.14 (0.87-1.13) H 07/01/22 09:13 Abnormal lab findings: Abnormal Labs 06/27/22 06/27/22 06/27/22 20:48 20:48 23:56 WBC 18.7 H RBC Hgb 15.1 H Hct 47.1 H Lymph % (Auto) 6.3 L [place] # (Auto) 0.9 H Seg Neutrophils % 88.6 H Seg Neutrophils # 16.5 H PT INR Heparin Anti-Xa Level Sodium 123 L 121 L Potassium 6.9 H* 6.4 H* Chloride 82.4 L 79.7 L Carbon Dioxide 7 L* 8 L* BUN 50 H 54 H Creatinine 2.2 H 2.5 H Glucose 578 H* 562 H* POC Glucose Hemoglobin A1c Calcium Phosphorus 10.40 H Magnesium 2.70 H 2.60 H AST 50 H Troponin T 0.080 H NT-Pro-B Natriuret Pep 4137 H Albumin 3.1 L Triglycerides 349 H LDL Cholesterol Direct 37 L HDL Cholesterol 38 L PTH Intact Urine Creatinine Urine Total Protein 06/28/22 06/28/22 06/28/22 01:45 03:17 03:35 WBC RBC Hgb Hct Lymph % (Auto) [place] # (Auto) Seg Neutrophils % Seg Neutrophils # PT INR Heparin Anti-Xa Level Sodium 120 L 121 L Potassium 6.2 H* 5.4 H Chloride 79.1 L 84.7 L Carbon Dioxide 7 L* 7 L* BUN 55 H 57 H Creatinine 2.6 H 2.6 H Glucose 551 H* 486 H POC Glucose 568 H Hemoglobin A1c Calcium 8.1 L 7.7 L Phosphorus Magnesium AST Troponin T NT-Pro-B Natriuret Pep Albumin Triglycerides LDL Cholesterol Direct HDL Cholesterol PTH Intact Urine Creatinine Urine Total Protein 06/28/22 06/28/22 06/28/22 03:35 04:05 05:13 WBC RBC Hgb Hct Lymph % (Auto) [place] # (Auto) Seg Neutrophils % Seg Neutrophils # PT INR Heparin Anti-Xa Level Sodium Potassium Chloride Carbon Dioxide BUN Creatinine Glucose POC Glucose 508 H 443 H Hemoglobin A1c Calcium Phosphorus 9.20 H Magnesium AST Troponin T NT-Pro-B Natriuret Pep Albumin Triglycerides LDL Cholesterol Direct HDL Cholesterol PTH Intact Urine Creatinine Urine Total Protein 06/28/22 06/28/22 06/28/22 05:40 06:30 07:39 WBC RBC Hgb Hct Lymph % (Auto) [place] # (Auto) Seg Neutrophils % Seg Neutrophils # PT INR Heparin Anti-Xa Level Sodium 124 L Potassium 5.1 H Chloride 86.5 L Carbon Dioxide 13 L BUN 59 H Creatinine 2.6 H Glucose 396 H POC Glucose 419 H 377 H Hemoglobin A1c Calcium 8.0 L Phosphorus Magnesium AST Troponin T NT-Pro-B Natriuret Pep Albumin Triglycerides LDL Cholesterol Direct HDL Cholesterol PTH Intact Urine Creatinine Urine Total Protein 06/28/22 06/28/22 06/28/22 08:10 08:18 09:32 WBC RBC Hgb Hct Lymph % (Auto) [place] # (Auto) Seg Neutrophils % Seg Neutrophils # PT INR Heparin Anti-Xa Level Sodium Potassium Chloride Carbon Dioxide BUN Creatinine Glucose POC Glucose 390 H 347 H Hemoglobin A1c Calcium Phosphorus Magnesium AST Troponin T NT-Pro-B Natriuret Pep Albumin Triglycerides LDL Cholesterol Direct HDL Cholesterol PTH Intact Urine Creatinine 85.4 H Urine Total Protein 49 H 06/28/22 06/28/22 06/28/22 10:46 11:40 12:40 WBC RBC Hgb Hct Lymph % (Auto) [place] # (Auto) Seg Neutrophils % Seg Neutrophils # PT INR Heparin Anti-Xa Level Sodium Potassium Chloride Carbon Dioxide BUN Creatinine Glucose POC Glucose 313 H 274 H 258 H Hemoglobin A1c Calcium Phosphorus Magnesium AST Troponin T NT-Pro-B Natriuret Pep Albumin Triglycerides LDL Cholesterol Direct HDL Cholesterol PTH Intact Urine Creatinine Urine Total Protein 06/28/22 06/28/22 06/28/22 13:38 14:13 14:13 WBC 19.7 H RBC 5.33 H Hgb 16.2 H Hct 49.4 H Lymph % (Auto) [place] # (Auto) Seg Neutrophils % Seg Neutrophils # PT INR Heparin Anti-Xa Level Sodium 125 L Potassium 5.4 H Chloride 87.6 L Carbon Dioxide 18 L BUN 58 H Creatinine 2.5 H Glucose 199 H POC Glucose 205 H Hemoglobin A1c Calcium Phosphorus 6.90 H D Magnesium AST Troponin T NT-Pro-B Natriuret Pep Albumin Triglycerides LDL Cholesterol Direct HDL Cholesterol PTH Intact Urine Creatinine Urine Total Protein 06/28/22 06/28/22 06/28/22 14:56 15:07 15:07 WBC RBC Hgb 15.5 H Hct 46.8 H Lymph % (Auto) [place] # (Auto) Seg Neutrophils % Seg Neutrophils # PT INR Heparin Anti-Xa Level Sodium 128 L Potassium 5.3 H Chloride 94.0 L Carbon Dioxide 14 L BUN 59 H Creatinine 2.4 H Glucose 183 H POC Glucose 194 H Hemoglobin A1c Calcium 7.8 L Phosphorus Magnesium AST Troponin T NT-Pro-B Natriuret Pep Albumin Triglycerides LDL Cholesterol Direct HDL Cholesterol PTH Intact Urine Creatinine Urine Total Protein 06/28/22 06/28/22 06/28/22 15:07 15:54 17:10 WBC RBC Hgb Hct Lymph % (Auto) [place] # (Auto) Seg Neutrophils % Seg Neutrophils # PT 19.6 H INR 1.47 H Heparin Anti-Xa Level Sodium Potassium Chloride Carbon Dioxide BUN Creatinine Glucose POC Glucose 189 H 216 H Hemoglobin A1c Calcium Phosphorus Magnesium AST Troponin T NT-Pro-B Natriuret Pep Albumin Triglycerides LDL Cholesterol Direct HDL Cholesterol PTH Intact Urine Creatinine Urine Total Protein 06/28/22 06/28/22 06/28/22 17:59 18:54 19:49 WBC RBC Hgb Hct Lymph % (Auto) [place] # (Auto) Seg Neutrophils % Seg Neutrophils # PT INR Heparin Anti-Xa Level Sodium Potassium Chloride Carbon Dioxide BUN Creatinine Glucose POC Glucose 195 H 178 H 166 H Hemoglobin A1c Calcium Phosphorus Magnesium AST Troponin T NT-Pro-B Natriuret Pep Albumin Triglycerides LDL Cholesterol Direct HDL Cholesterol PTH Intact Urine Creatinine Urine Total Protein 06/28/22 06/28/22 06/28/22 20:31 20:31 20:31 WBC RBC Hgb Hct Lymph % (Auto) [place] # (Auto) Seg Neutrophils % Seg Neutrophils # PT INR Heparin Anti-Xa Level 0.19 L Sodium 129 L Potassium 5.1 H Chloride 95.6 L Carbon Dioxide 15 L BUN 59 H Creatinine 2.4 H Glucose 145 H POC Glucose Hemoglobin A1c 9.7 H Calcium 8.0 L Phosphorus 6.40 H Magnesium AST Troponin T NT-Pro-B Natriuret Pep Albumin Triglycerides LDL Cholesterol Direct HDL Cholesterol PTH Intact Urine Creatinine Urine Total Protein 06/28/22 06/28/22 06/28/22 21:27 22:22 23:36 WBC RBC Hgb Hct Lymph % (Auto) [place] # (Auto) Seg Neutrophils % Seg Neutrophils # PT INR Heparin Anti-Xa Level Sodium Potassium Chloride Carbon Dioxide BUN Creatinine Glucose POC Glucose 131 H 148 H 146 H Hemoglobin A1c Calcium Phosphorus Magnesium AST Troponin T NT-Pro-B Natriuret Pep Albumin Triglycerides LDL Cholesterol Direct HDL Cholesterol PTH Intact Urine Creatinine Urine Total Protein 06/29/22 06/29/22 06/29/22 00:21 01:27 02:54 WBC RBC Hgb Hct Lymph % (Auto) [place] # (Auto) Seg Neutrophils % Seg Neutrophils # PT INR Heparin Anti-Xa Level Sodium Potassium Chloride Carbon Dioxide BUN Creatinine Glucose POC Glucose 149 H 172 H 172 H Hemoglobin A1c Calcium Phosphorus Magnesium AST Troponin T NT-Pro-B Natriuret Pep Albumin Triglycerides LDL Cholesterol Direct HDL Cholesterol PTH Intact Urine Creatinine Urine Total Protein 06/29/22 06/29/22 06/29/22 04:05 04:21 04:21 WBC 17.1 H RBC Hgb 14.6 H Hct 43.9 H Lymph % (Auto) [place] # (Auto) Seg Neutrophils % Seg Neutrophils # PT INR Heparin Anti-Xa Level Sodium 129 L Potassium Chloride 97.6 L Carbon Dioxide 15 L BUN 59 H Creatinine 2.1 H Glucose 140 H POC Glucose 167 H Hemoglobin A1c Calcium 8.0 L Phosphorus Magnesium AST Troponin T NT-Pro-B Natriuret Pep Albumin Triglycerides LDL Cholesterol Direct HDL Cholesterol PTH Intact Urine Creatinine Urine Total Protein 06/29/22 06/29/22 06/29/22 04:21 06:27 07:31 WBC RBC Hgb Hct Lymph % (Auto) [place] # (Auto) Seg Neutrophils % Seg Neutrophils # PT INR Heparin Anti-Xa Level Sodium Potassium Chloride Carbon Dioxide BUN Creatinine Glucose POC Glucose 138 H 142 H Hemoglobin A1c Calcium Phosphorus Magnesium AST Troponin T NT-Pro-B Natriuret Pep Albumin Triglycerides LDL Cholesterol Direct HDL Cholesterol PTH Intact 382.4 H Urine Creatinine Urine Total Protein 06/29/22 06/29/22 06/29/22 08:33 09:28 10:35 WBC RBC Hgb Hct Lymph % (Auto) [place] # (Auto) Seg Neutrophils % Seg Neutrophils # PT INR Heparin Anti-Xa Level Sodium Potassium Chloride Carbon Dioxide BUN Creatinine Glucose POC Glucose 141 H 167 H 152 H Hemoglobin A1c Calcium Phosphorus Magnesium AST Troponin T NT-Pro-B Natriuret Pep Albumin Triglycerides LDL Cholesterol Direct HDL Cholesterol PTH Intact Urine Creatinine Urine Total Protein 06/29/22 06/29/22 06/29/22 10:47 11:30 12:33 WBC RBC Hgb Hct Lymph % (Auto) [place] # (Auto) Seg Neutrophils % Seg Neutrophils # PT INR Heparin Anti-Xa Level Sodium 131 L Potassium Chloride 94.4 L Carbon Dioxide 15 L BUN 59 H Creatinine 2.2 H Glucose 149 H POC Glucose 134 H 146 H Hemoglobin A1c Calcium Phosphorus 5.80 H Magnesium AST Troponin T NT-Pro-B Natriuret Pep Albumin Triglycerides LDL Cholesterol Direct HDL Cholesterol PTH Intact Urine Creatinine Urine Total Protein 06/29/22 06/29/22 06/29/22 13:28 14:33 15:49 WBC RBC Hgb Hct Lymph % (Auto) [place] # (Auto) Seg Neutrophils % Seg Neutrophils # PT INR Heparin Anti-Xa Level Sodium Potassium Chloride Carbon Dioxide BUN Creatinine Glucose POC Glucose 170 H 188 H 155 H Hemoglobin A1c Calcium Phosphorus Magnesium AST Troponin T NT-Pro-B Natriuret Pep Albumin Triglycerides LDL Cholesterol Direct HDL Cholesterol PTH Intact Urine Creatinine Urine Total Protein 06/29/22 06/29/22 06/29/22 16:14 16:14 16:45 WBC RBC Hgb Hct Lymph % (Auto) [place] # (Auto) Seg Neutrophils % Seg Neutrophils # PT INR Heparin Anti-Xa Level 0.19 L Sodium 128 L Potassium Chloride 95.8 L Carbon Dioxide 15 L BUN 52 H Creatinine 1.8 H Glucose 138 H POC Glucose 135 H Hemoglobin A1c Calcium 7.9 L Phosphorus Magnesium AST Troponin T NT-Pro-B Natriuret Pep Albumin Triglycerides LDL Cholesterol Direct HDL Cholesterol PTH Intact Urine Creatinine Urine Total Protein 06/29/22 06/29/22 06/29/22 17:47 18:52 20:14 WBC RBC Hgb Hct Lymph % (Auto) [place] # (Auto) Seg Neutrophils % Seg Neutrophils # PT INR Heparin Anti-Xa Level Sodium Potassium Chloride Carbon Dioxide BUN Creatinine Glucose POC Glucose 150 H 123 H 155 H Hemoglobin A1c Calcium Phosphorus Magnesium AST Troponin T NT-Pro-B Natriuret Pep Albumin Triglycerides LDL Cholesterol Direct HDL Cholesterol PTH Intact Urine Creatinine Urine Total Protein 06/29/22 06/29/22 06/29/22 20:17 21:11 21:53 WBC RBC Hgb Hct Lymph % (Auto) [place] # (Auto) Seg Neutrophils % Seg Neutrophils # PT INR Heparin Anti-Xa Level Sodium 131 L Potassium 5.5 H D Chloride Carbon Dioxide 15 L BUN 56 H Creatinine 2.0 H Glucose 146 H POC Glucose 152 H 165 H Hemoglobin A1c Calcium Phosphorus 5.20 H Magnesium AST Troponin T NT-Pro-B Natriuret Pep Albumin Triglycerides LDL Cholesterol Direct HDL Cholesterol PTH Intact Urine Creatinine Urine Total Protein 06/29/22 06/30/22 06/30/22 23:07 00:18 00:58 WBC RBC Hgb Hct Lymph % (Auto) [place] # (Auto) Seg Neutrophils % Seg Neutrophils # PT INR Heparin Anti-Xa Level Sodium Potassium Chloride Carbon Dioxide BUN Creatinine Glucose POC Glucose 163 H 178 H 189 H Hemoglobin A1c Calcium Phosphorus Magnesium AST Troponin T NT-Pro-B Natriuret Pep Albumin Triglycerides LDL Cholesterol Direct HDL Cholesterol PTH Intact Urine Creatinine Urine Total Protein 06/30/22 06/30/22 06/30/22 01:57 02:59 03:53 WBC RBC Hgb Hct Lymph % (Auto) [place] # (Auto) Seg Neutrophils % Seg Neutrophils # PT INR Heparin Anti-Xa Level Sodium Potassium Chloride Carbon Dioxide BUN Creatinine Glucose POC Glucose 150 H 147 H 122 H Hemoglobin A1c Calcium Phosphorus Magnesium AST Troponin T NT-Pro-B Natriuret Pep Albumin Triglycerides LDL Cholesterol Direct HDL Cholesterol PTH Intact Urine Creatinine Urine Total Protein 06/30/22 06/30/22 06/30/22 04:56 05:25 05:52 WBC RBC Hgb Hct Lymph % (Auto) [place] # (Auto) Seg Neutrophils % Seg Neutrophils # PT INR Heparin Anti-Xa Level Sodium 132 L Potassium Chloride Carbon Dioxide 15 L BUN 53 H Creatinine 1.7 H Glucose 137 H POC Glucose 110 H 150 H Hemoglobin A1c Calcium Phosphorus Magnesium AST Troponin T NT-Pro-B Natriuret Pep Albumin Triglycerides LDL Cholesterol Direct HDL Cholesterol PTH Intact Urine Creatinine Urine Total Protein 06/30/22 06/30/22 06/30/22 07:25 08:20 09:20 WBC RBC Hgb Hct Lymph % (Auto) [place] # (Auto) Seg Neutrophils % Seg Neutrophils # PT INR Heparin Anti-Xa Level Sodium Potassium Chloride Carbon Dioxide BUN Creatinine Glucose POC Glucose 133 H 119 H 128 H Hemoglobin A1c Calcium Phosphorus Magnesium AST Troponin T NT-Pro-B Natriuret Pep Albumin Triglycerides LDL Cholesterol Direct HDL Cholesterol PTH Intact Urine Creatinine Urine Total Protein 06/30/22 06/30/22 06/30/22 10:21 10:59 11:25 WBC RBC Hgb Hct Lymph % (Auto) [place] # (Auto) Seg Neutrophils % Seg Neutrophils # PT INR Heparin Anti-Xa Level Sodium 132 L Potassium Chloride Carbon Dioxide 16 L BUN 49 H Creatinine 1.7 H Glucose 168 H POC Glucose 133 H 232 H Hemoglobin A1c Calcium 8.1 L Phosphorus Magnesium AST Troponin T NT-Pro-B Natriuret Pep Albumin Triglycerides LDL Cholesterol Direct HDL Cholesterol PTH Intact Urine Creatinine Urine Total Protein 06/30/22 06/30/22 07/01/22 16:15 21:30 05:10 WBC RBC Hgb Hct Lymph % (Auto) [place] # (Auto) Seg Neutrophils % Seg Neutrophils # PT INR Heparin Anti-Xa Level 0.24 L Sodium Potassium Chloride Carbon Dioxide BUN Creatinine Glucose POC Glucose 325 H 279 H Hemoglobin A1c Calcium Phosphorus Magnesium AST Troponin T NT-Pro-B Natriuret Pep Albumin Triglycerides LDL Cholesterol Direct HDL Cholesterol PTH Intact Urine Creatinine Urine Total Protein 07/01/22 07/01/22 07/01/22 05:10 07:38 09:13 WBC RBC Hgb Hct Lymph % (Auto) [place] # (Auto) Seg Neutrophils % Seg Neutrophils # PT 15.9 H INR 1.14 H Heparin Anti-Xa Level Sodium 132 L Potassium Chloride 97.8 L Carbon Dioxide 19 L BUN 34 H Creatinine 1.3 H Glucose 250 H POC Glucose 235 H Hemoglobin A1c Calcium Phosphorus Magnesium AST Troponin T NT-Pro-B Natriuret Pep Albumin Triglycerides LDL Cholesterol Direct HDL Cholesterol PTH Intact Urine Creatinine Urine Total Protein 07/01/22 07/01/22 07/02/22 13:42 23:14 07:41 WBC RBC Hgb Hct Lymph % (Auto) [place] # (Auto) Seg Neutrophils % Seg Neutrophils # PT INR Heparin Anti-Xa Level 0.25 L 0.27 L Sodium Potassium Chloride Carbon Dioxide BUN Creatinine Glucose POC Glucose 287 H Hemoglobin A1c Calcium Phosphorus Magnesium AST Troponin T NT-Pro-B Natriuret Pep Albumin Triglycerides LDL Cholesterol Direct HDL Cholesterol PTH Intact Urine Creatinine Urine Total Protein 07/02/22 08:12 WBC RBC Hgb Hct Lymph % (Auto) [place] # (Auto) Seg Neutrophils % Seg Neutrophils # PT INR Heparin Anti-Xa Level Sodium 129 L Potassium Chloride 95.7 L Carbon Dioxide 17 L BUN 24 H Creatinine Glucose 275 H POC Glucose Hemoglobin A1c Calcium Phosphorus 2.10 L D Magnesium AST Troponin T NT-Pro-B Natriuret Pep Albumin Triglycerides LDL Cholesterol Direct HDL Cholesterol PTH Intact Urine Creatinine Urine Total Protein Allied health notes reviewed: nursing
--- NOTE | 2022-07-02 17:15 | Post Operative Note ---
Date of procedure: 07/02/22 Pre-op diagnosis: Caval bilateral iliofemoral DVT Post-op diagnosis: same Procedure: 1. Ultrasound-guided access of the right popliteal vein. 2. Ultrasound-guided access of the left popliteal vein. 3. Venography of the right lower extremity 4. Venography for left lower extremity 5. Selection of the IVC with venography of the IVC. 6. Clottriever 13 Fr thrombectomy of the left common iliac vein, left external iliac vein, left common femoral vein, left superficial femoral vein, left popliteal vein 7. Clottriever 13 Fr thrombectomy of the right common iliac vein, right external iliac vein, right common femoral vein, right superficial femoral vein, right duplicated superficial femoral vein, right popliteal vein 8. Flowtriever 16 Fr IVC thrombectomy multiple times 9. Angioplasty of the right common iliac vein, right external iliac vein, right common femoral vein, right superficial femoral vein, right popliteal vein 10. Angioplasty of the left common iliac vein, left external iliac vein, left common femoral vein, left superficial femoral vein, left popliteal vein Anesthesia: MAC Surgeon: VICTORINO CHRISTINA Estimated blood loss: other (300 mL EBL) Condition: stable Disposition: floor
--- NOTE | 2022-07-02 17:16 | Operative Report ---
Operative Report Operative Report: EXAM: 1. Ultrasound-guided access of the right popliteal vein. 2. Ultrasound-guided access of the left popliteal vein. 3. Venography of the right lower extremity 4. Venography for left lower extremity 5. Selection of the IVC with venography of the IVC. 6. Clottriever 13 Fr thrombectomy of the left common iliac vein, left external iliac vein, left common femoral vein, left superficial femoral vein, left popliteal vein 7. Clottriever 13 Fr thrombectomy of the right common iliac vein, right external iliac vein, right common femoral vein, right superficial femoral vein, right duplicated superficial femoral vein, right popliteal vein 8. Flowtriever 16 Fr IVC thrombectomy multiple times 9. Angioplasty of the right common iliac vein, right external iliac vein, right common femoral vein, right superficial femoral vein, right popliteal vein 10. 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 Symptoms are close to phlegmasia. ANESTHESIA: MAC MEDICATIONS: Please see anesthesia report for full details. CONTRAST: Please see lab pack chemist report for full details. EBL: 300 mL from Thrombectomy equipment PROCEDURE: The risks, benefits, and alternatives were discussed; written informed consent was obtained. The patient was then brought into the angiography suite and prepped and draped in a sterile fashion. The patient was then placed in the prone position and anesthesia was present to provide sedation for the patient. Both of the popliteal fossa's were prepped and draped in a sterile fashion and under direct ultrasound guidance, the right and left popliteal vein was evaluated and noted to be predominantly occluded with thrombus. Under direct ultrasound guidance, a 21-gauge micropuncture needle was used to access the right popliteal vein. 0.018 inch wire was passed into the superficial femoral vein. Needle was exchanged for transitional dilator. Wire was exchanged for a 0.035 inch wire. Transitional dilator was exchanged for 5 Georgian sheath. Under direct ultrasound guidance, a 21-gauge micropuncture needle was used to access the left popliteal vein. Needle was exchanged for transitional dilator. Wire was exchanged for a 0.035 inch wire. Transitional dilator was exchanged for 5 Georgian sheath. Venography was then performed of the right and left lower extremity which demonstrated thrombus of the bilateral common iliac veins, external iliac veins, common femoral veins, profunda femoral veins, superficial femoral veins, and popliteal veins. The right superficial femoral vein was partially duplicated with thrombus in both the partially duplicated vein and the [place] vein. The IVC was then selected and digital subtraction angiography demonstrated thrombus of the IVC below the IVC filter, and partially above the IVC filter. At this point, over stiff 0.035 inch wires, both popliteal fossa regions were dilated and a dermatotomy was made after the area was anesthetized and serial dilatation was performed placing a 16 Georgian Clottriever sheaths in the popliteal veins. Afterwards, catheters used to select the IVC, and through an up and over approach, the contralateral left common femoral vein, superficial femoral vein, and popliteal vein and the wire was then snared and externalized through the Clottriever sheaths. Clottriever thrombectomy was performed 5 times in the left common iliac vein, external iliac vein, common femoral vein, superficial femoral vein, and popliteal vein. Clottriever thrombectomy was performed 4 times in the right common iliac vein, external iliac vein, common femoral vein, superficial femoral vein, and popliteal vein. Due to the partially duplicated superficial femoral vein, the wire was removed and the duplicated superficial femoral vein was selected and Clottriever thrombectomy was performed. Then the original superficial femoral vein was selected and repeat thrombectomy was performed. Intermittent angiography was performed demonstrating clearance of most of the thrombus in the bilateral superficial femoral veins, popliteal veins, common femoral veins, and external iliac veins. At this point, 16 Georgian FlowTriever device was advanced over the wire and into the IVC and numerous poles from both direction was performed and with the use of the FlowSaver device, blood was reintroduced back into the patient. Large amounts of thrombus in the IVC were removed. Ultimately the sheath was advanced slightly above the filter and the thrombus above the IVC filter was the n removed. 12 mm x 60 mm angioplasty balloon was then used to perform angioplasty of the right common iliac vein, external iliac vein, right common femoral vein, right proximal superficial femoral vein and right popliteal vein. The right popliteal vein was not inflated to nominal pressures. 12 mm x 60 mm angioplasty balloon was used to perform angioplasty of the left common iliac vein, left external iliac vein, left common femoral vein, left proximal superficial femoral vein, and left popliteal vein. The left popliteal vein was not inflated to nominal pressures. There is now some thrombus in the right common iliac vein which was then retrieved with the ClotTriever device. Digital subtraction angiography was performed demonstrating patency of the bilateral popliteal veins, superficial femoral veins, including the left duplicated superficial femoral vein, common femoral veins, external iliac veins, common iliac veins, and IVC. At this point, the patient's procedure was completed. The ClotTriever sheaths were removed as aspiration was held to remove any residual thrombus and each site was closed with a pursestring stitch. Pressure dressing, Burton bandage, and CHRISTOPHER hose were applied. SCDs were applied. The patient was immediately started on Eliquis. The patient tolerated the procedure well. No immediate postprocedural complications. The patient reported immediate relief of her lower extremity pain and abdominal pain at the conclusion of the procedure and the discoloration of her toes resolved. Digital subtraction angiography was now performed into both sides demonstrating clearance of thrombus in the bilateral superficial femoral veins, popliteal veins, common femoral veins FINDINGS: Please see procedure note above. IMPRESSION: 1. Successful angioplasty of the right common iliac vein, external iliac vein, superficial femoral vein and popliteal vein. 2. Successful angioplasty of the left common iliac vein, external iliac vein, superficial femoral vein, and popliteal vein. 3. Successful ClotTriever thrombectomy of the right common iliac vein, external iliac vein, superficial femoral vein, and popliteal vein. 4. Successful ClotTriever thrombectomy of the left common iliac vein, external iliac vein, superficial femoral vein, and popliteal vein. 5. Successful FlowTriever thrombectomy of the infrarenal IVC below the IVC filter, at the midportion of the IVC filter, and above the IVC filter resulting in clearance of thrombus.
--- NOTE | 2022-07-02 17:57 | Post Anesthesia Evaluation ---
- Post Anesthesia Evaluation Patient Participated: Yes Airway Patent: Yes Stable Respiratory Function: Yes Nausea/Vomiting: No Temp > 96.8F: Yes Pain Manageable: Yes Adequeate Hydration: Yes Anesthesia Complications: No Block Receding Appropriately: Not Applicable Patient on Ventilator: No
--- NOTE | 2022-07-02 20:14 | Progress Note ---
Subjective - Reason for Consult Consult date: 07/02/22 Reason for consult: adjustment for meds for bipolar d/o - Chief Complaint Chief complaint: Shortness of Breath Mental Status Exam - Vital signs Last Vital Signs Temp 98.5 F 07/02/22 05:00 Pulse 69 07/02/22 05:00 Resp 20 07/02/22 05:00 BP 143/66 07/02/22 05:00 Pulse Ox 98 07/02/22 10:00 - Exam Narrative exam: 07/02: Patient seen today. Patient alert and oriented x3 and cooperative throughout the interview. Patient reports good mood. Patient denies SI HI AVH. P atient depressive sx or manic symptoms. Patient denies SI HI AVH. Patient reports good appetite and okay sleep. 07/01: Patient seen today. Patient alert and oriented x1 and cooperative throughout the interview. When pt intially asked how she's feeling pt reports "I'm here." When asked again, patient jokes "thirsty." Patient denies depressive sx or manic symptoms. Patient denies SI HI AVH. Patient reports good appetite and okay sleep. 06/30: Patient seen today. Patient reports she feels like she's getting better. Patient requests to get out of her bed and sit in chair at bedside. Patient reports good mood, okay sleep, and good appetite. Patient denies depressive symptoms or manic symptoms. Patient denies SI HI AVH. 06/29: Patient is a 52 year-old female with psychiatric history of bipolar disorder and major depressive disorder. Psych was consulted for adjustment for meds for bipolar d/o in context of DKA. Patient was seen today. Patient was asleep but responsive to voice. Patient was oriented to time and place. Patient reports she's at the hospital because "I fell 2 days ago and couldn't get up." "I was hurting all over my body, I couldn't eat." Patient reports being unsure which psychiatric medications she was taking before arriving at hospital. Patient reports being d/c from lithium 2 weeks ago "because I was having heart problems." Patient reports being started on oxcarbazepine. When asked how patient was feeling, patient reports "I don't know, I can't tell you anything. I'm so sick." Patient denies depressive sx or manic symptoms. Patient denies SI HI AVH. Orientation: time, place, person Affect: normal Mood: appropriate Thought Process: Intact Perceptions: none Speech: normal rate and pattern Concentration: focused Motor activity: normal Level of consciousness: alert Memory: Intact Sleep Symptoms: None Interaction: cooperative Assessment and Plan Bipolar disorder - Patient Problems (1) Bipolar disorder Current Visit: Yes Status: Acute Qualifiers: Active/Remission status: in partial remission Plan to address problem: Mainta haldol 5 mg BID Maintain Depakote 250 mg q6h Risks, benefits and alternatives of medications discussed with the patient, questions answered and consent obtained from patient. PSYCHOTHERAPY: Supportive psychotherapy provided MEDICAL: Per primary team DELIRIUM PRECAUTIONS: Please re-orient patient frequently, keep lights on during the day, and minimize benzodiazepines and opiates as these medications could worsen patient's confusion. CHECKER: Defer to primary DISPOSITION: Do not recommend acute inpatient psychiatric hospitalization at this time. FOLLOW-UP: Will follow Thank you for the consult. Please contact with any questions and/or concerns. Case staffed with Dr. Tatum Ace.
[2022-07-02 21:40] LABS: Hematocrit 46.3 % (30.3-42.9); Hemoglobin 14.7 gm/dl (10.1-14.3); Mean Corpuscular HGB Conc 32 % (30-34); Mean Corpuscular Volume 93 fl (79-97); Red Blood Count 4.96 M/mm3 (3.65-5.03); Red Cell Distribution Width 14.6 % (13.2-15.2)
[2022-07-02 21:52] LABS: Platelet Count 138 K/mm3 (140-440)
[2022-07-02 21:53] LABS: INR 1.26 (0.87-1.13)
[2022-07-02 21:54] LABS: Partial Thromboplastin Time 24.1 Sec. (24.2-36.6)
[2022-07-02] MEDS: APIXABAN 5 MG TAB PO SCH (22:16)
[2022-07-03] MEDS: DIVALPROEX DR 250 MG TAB PO SCH ×4 (02:00→21:51)
--- NOTE | 2022-07-03 06:19 | Progress Note ---
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 - follow clinically off AB's (Procalcitonin unremarkable) - continue accuchecks with glycemic control per SSI for target blood glucose < 180 mg/dL - continue IV Heparin re: VTE - vascular surgery evaluation ongoing - continue to avoid nephrotoxins, renally dose all medications - continue BIPAP qhs with prn daytime use - continue to wean supplemental oxygen for target O2 sat's > 90% acutely - aspiration precautions - prn bronchodilators (YESSI) with pulmonary hygiene per RT - prn analgesia per pain score - Maintenance of sleep-wake cycle, avoid delirium - tobacco abstinence strongly counseled - G.I. & VTE prophylaxis - PT/OT/ROM exercises - mobility protocols for pressure ulcer prophylaxis - Monitor hemodynamics closely - continue other care per attending / other consultants - discharge planning ongoing concurrently .... Re-evaluate in am & prn Subjective Date of service: 07/03/22 Principal diagnosis: AHRF; DKA; Hyperkalemia; COPD; ? cellulitis; PVD; STEFFANIE; Morbid obesity; ?JACKLYN Interval history: Patient is seen today for: Acute hypoxemic respiratory failure; DKA; Hyperkalemia; COPD; Possible cellulitis; PVD; STEFFANIE; Morbid obesity Seen and examined at bedside; 24hour events reviewed; nursing and respiratory care staff consulted; no adverse overnight events reported to me; resting peacefully in bed; denies acute chest pains or palpitations; no gross bleeding; no N/V/F/C Objective Vital Signs - 12hr 07/02/22 07/02/22 07/02/22 20:15 20:28 23:49 Temperature 99.1 F Pulse Rate 87 Respiratory 20 Rate Blood Pressure Blood Pressure 129/86 [Left] O2 Sat by Pulse 98 98 94 Oximetry 07/03/22 07/03/22 00:42 05:04 Temperature 98.5 F Pulse Rate 71 Respiratory 18 Rate Blood Pressure 151/65 Blood Pressure [Left] O2 Sat by Pulse 94 98 Oximetry Constitutional: no acute distress Eyes: non-icteric ENT: oropharynx moist Neck: supple, no lymphadenopathy, no JVD, other (large circumference) Effort: mildly labored Ascultation: Bilateral: clear, diminished breath sounds Percussion: Bilateral: not dull Cardiovascular: regular rate and rhythm Gastrointestinal: normoactive bowel sounds, non-tender, tender, non-distended Integumentary: rash (shins), other (erythema to shins) Extremities: no cyanosis, pink and warm, no ischemia or petechiae, edema (trace to 1+) Neurologic: normal mental status, non-focal exam (grossly), pupils equal and round, motor strength normal and Psychiatric: mood appropriate, affect normal CBC and BMP: 07/12/22 04:18 07/12/22 04:18 ABG, PT/INR, D-dimer: PT/INR, D-dimer PT 17.3 Sec. (12.2-14.9) H 07/02/22 20:28 INR 1.26 (0.87-1.13) H 07/02/22 20:28 Abnormal lab findings: Abnormal Labs 06/27/22 06/27/22 06/27/22 20:48 20:48 23:56 WBC 18.7 H RBC Hgb 15.1 H Hct 47.1 H Plt Count Lymph % (Auto) 6.3 L Moody # (Auto) 0.9 H Seg Neutrophils % 88.6 H Seg Neutrophils # 16.5 H PT INR APTT Heparin Anti-Xa Level Sodium 123 L 121 L Potassium 6.9 H* 6.4 H* Chloride 82.4 L 79.7 L Carbon Dioxide 7 L* 8 L* BUN 50 H 54 H Creatinine 2.2 H 2.5 H Glucose 578 H* 562 H* POC Glucose Hemoglobin A1c Calcium Phosphorus 10.40 H Magnesium 2.70 H 2.60 H AST 50 H Troponin T 0.080 H NT-Pro-B Natriuret Pep 4137 H Albumin 3.1 L Triglycerides 349 H LDL Cholesterol Direct 37 L HDL Cholesterol 38 L PTH Intact Urine Creatinine Urine Total Protein 06/28/22 06/28/22 06/28/22 01:45 03:17 03:35 WBC RBC Hgb Hct Plt Count Lymph % (Auto) Moody # (Auto) Seg Neutrophils % Seg Neutrophils # PT INR APTT Heparin Anti-Xa Level Sodium 120 L 121 L Potassium 6.2 H* 5.4 H Chloride 79.1 L 84.7 L Carbon Dioxide 7 L* 7 L* BUN 55 H 57 H Creatinine 2.6 H 2.6 H Glucose 551 H* 486 H POC Glucose 568 H Hemoglobin A1c Calcium 8.1 L 7.7 L Phosphorus Magnesium AST Troponin T NT-Pro-B Natriuret Pep Albumin Triglycerides LDL Cholesterol Direct HDL Cholesterol PTH Intact Urine Creatinine Urine Total Protein 06/28/22 06/28/22 06/28/22 03:35 04:05 05:13 WBC RBC Hgb Hct Plt Count Lymph % (Auto) Moody # (Auto) Seg Neutrophils % Seg Neutrophils # PT INR APTT Heparin Anti-Xa Level Sodium Potassium Chloride Carbon Dioxide BUN Creatinine Glucose POC Glucose 508 H 443 H Hemoglobin A1c Calcium Phosphorus 9.20 H Magnesium AST Troponin T NT-Pro-B Natriuret Pep Albumin Triglycerides LDL Cholesterol Direct HDL Cholesterol PTH Intact Urine Creatinine Urine Total Protein 06/28/22 06/28/22 06/28/22 05:40 06:30 07:39 WBC RBC Hgb Hct Plt Count Lymph % (Auto) Moody # (Auto) Seg Neutrophils % Seg Neutrophils # PT INR APTT Heparin Anti-Xa Level Sodium 124 L Potassium 5.1 H Chloride 86.5 L Carbon Dioxide 13 L BUN 59 H Creatinine 2.6 H Glucose 396 H POC Glucose 419 H 377 H Hemoglobin A1c Calcium 8.0 L Phosphorus Magnesium AST Troponin T NT-Pro-B Natriuret Pep Albumin Triglycerides LDL Cholesterol Direct HDL Cholesterol PTH Intact Urine Creatinine Urine Total Protein 06/28/22 06/28/22 06/28/22 08:10 08:18 09:32 WBC RBC Hgb Hct Plt Count Lymph % (Auto) Moody # (Auto) Seg Neutrophils % Seg Neutrophils # PT INR APTT Heparin Anti-Xa Level Sodium Potassium Chloride Carbon Dioxide BUN Creatinine Glucose POC Glucose 390 H 347 H Hemoglobin A1c Calcium Phosphorus Magnesium AST Troponin T NT-Pro-B Natriuret Pep Albumin Triglycerides LDL Cholesterol Direct HDL Cholesterol PTH Intact Urine Creatinine 85.4 H Urine Total Protein 49 H 06/28/22 06/28/22 06/28/22 10:46 11:40 12:40 WBC RBC Hgb Hct Plt Count Lymph % (Auto) Moody # (Auto) Seg Neutrophils % Seg Neutrophils # PT INR APTT Heparin Anti-Xa Level Sodium Potassium Chloride Carbon Dioxide BUN Creatinine Glucose POC Glucose 313 H 274 H 258 H Hemoglobin A1c Calcium Phosphorus Magnesium AST Troponin T NT-Pro-B Natriuret Pep Albumin Triglycerides LDL Cholesterol Direct HDL Cholesterol PTH Intact Urine Creatinine Urine Total Protein 06/28/22 06/28/22 06/28/22 13:38 14:13 14:13 WBC 19.7 H RBC 5.33 H Hgb 16.2 H Hct 49.4 H Plt Count Lymph % (Auto) Moody # (Auto) Seg Neutrophils % Seg Neutrophils # PT INR APTT Heparin Anti-Xa Level Sodium 125 L Potassium 5.4 H Chloride 87.6 L Carbon Dioxide 18 L BUN 58 H Creatinine 2.5 H Glucose 199 H POC Glucose 205 H Hemoglobin A1c Calcium Phosphorus 6.90 H D Magnesium AST Troponin T NT-Pro-B Natriuret Pep Albumin Triglycerides LDL Cholesterol Direct HDL Cholesterol PTH Intact Urine Creatinine Urine Total Protein 06/28/22 06/28/22 06/28/22 14:56 15:07 15:07 WBC RBC Hgb 15.5 H Hct 46.8 H Plt Count Lymph % (Auto) Moody # (Auto) Seg Neutrophils % Seg Neutrophils # PT INR APTT Heparin Anti-Xa Level Sodium 128 L Potassium 5.3 H Chloride 94.0 L Carbon Dioxide 14 L BUN 59 H Creatinine 2.4 H Glucose 183 H POC Glucose 194 H Hemoglobin A1c Calcium 7.8 L Phosphorus Magnesium AST Troponin T NT-Pro-B Natriuret Pep Albumin Triglycerides LDL Cholesterol Direct HDL Cholesterol PTH Intact Urine Creatinine Urine Total Protein 06/28/22 06/28/22 06/28/22 15:07 15:54 17:10 WBC RBC Hgb Hct Plt Count Lymph % (Auto) Moody # (Auto) Seg Neutrophils % Seg Neutrophils # PT 19.6 H INR 1.47 H APTT Heparin Anti-Xa Level Sodium Potassium Chloride Carbon Dioxide BUN Creatinine Glucose POC Glucose 189 H 216 H Hemoglobin A1c Calcium Phosphorus Magnesium AST Troponin T NT-Pro-B Natriuret Pep Albumin Triglycerides LDL Cholesterol Direct HDL Cholesterol PTH Intact Urine Creatinine Urine Total Protein 06/28/22 06/28/22 06/28/22 17:59 18:54 19:49 WBC RBC Hgb Hct Plt Count Lymph % (Auto) Moody # (Auto) Seg Neutrophils % Seg Neutrophils # PT INR APTT Heparin Anti-Xa Level Sodium Potassium Chloride Carbon Dioxide BUN Creatinine Glucose POC Glucose 195 H 178 H 166 H Hemoglobin A1c Calcium Phosphorus Magnesium AST Troponin T NT-Pro-B Natriuret Pep Albumin Triglycerides LDL Cholesterol Direct HDL Cholesterol PTH Intact Urine Creatinine Urine Total Protein 06/28/22 06/28/22 06/28/22 20:31 20:31 20:31 WBC RBC Hgb Hct Plt Count Lymph % (Auto) Moody # (Auto) Seg Neutrophils % Seg Neutrophils # PT INR APTT Heparin Anti-Xa Level 0.19 L Sodium 129 L Potassium 5.1 H Chloride 95.6 L Carbon Dioxide 15 L BUN 59 H Creatinine 2.4 H Glucose 145 H POC Glucose Hemoglobin A1c 9.7 H Calcium 8.0 L Phosphorus 6.40 H Magnesium AST Troponin T NT-Pro-B Natriuret Pep Albumin Triglycerides LDL Cholesterol Direct HDL Cholesterol PTH Intact Urine Creatinine Urine Total Protein 06/28/22 06/28/22 06/28/22 21:27 22:22 23:36 WBC RBC Hgb Hct Plt Count Lymph % (Auto) Moody # (Auto) Seg Neutrophils % Seg Neutrophils # PT INR APTT Heparin Anti-Xa Level Sodium Potassium Chloride Carbon Dioxide BUN Creatinine Glucose POC Glucose 131 H 148 H 146 H Hemoglobin A1c Calcium Phosphorus Magnesium AST Troponin T NT-Pro-B Natriuret Pep Albumin Triglycerides LDL Cholesterol Direct HDL Cholesterol PTH Intact Urine Creatinine Urine Total Protein 06/29/22 06/29/22 06/29/22 00:21 01:27 02:54 WBC RBC Hgb Hct Plt Count Lymph % (Auto) Moody # (Auto) Seg Neutrophils % Seg Neutrophils # PT INR APTT Heparin Anti-Xa Level Sodium Potassium Chloride Carbon Dioxide BUN Creatinine Glucose POC Glucose 149 H 172 H 172 H Hemoglobin A1c Calcium Phosphorus Magnesium AST Troponin T NT-Pro-B Natriuret Pep Albumin Triglycerides LDL Cholesterol Direct HDL Cholesterol PTH Intact Urine Creatinine Urine Total Protein 06/29/22 06/29/22 06/29/22 04:05 04:21 04:21 WBC 17.1 H RBC Hgb 14.6 H Hct 43.9 H Plt Count Lymph % (Auto) Moody # (Auto) Seg Neutrophils % Seg Neutrophils # PT INR APTT Heparin Anti-Xa Level Sodium 129 L Potassium Chloride 97.6 L Carbon Dioxide 15 L BUN 59 H Creatinine 2.1 H Glucose 140 H POC Glucose 167 H Hemoglobin A1c Calcium 8.0 L Phosphorus Magnesium AST Troponin T NT-Pro-B Natriuret Pep Albumin Triglycerides LDL Cholesterol Direct HDL Cholesterol PTH Intact Urine Creatinine Urine Total Protein 06/29/22 06/29/22 06/29/22 04:21 06:27 07:31 WBC RBC Hgb Hct Plt Count Lymph % (Auto) Moody # (Auto) Seg Neutrophils % Seg Neutrophils # PT INR APTT Heparin Anti-Xa Level Sodium Potassium Chloride Carbon Dioxide BUN Creatinine Glucose POC Glucose 138 H 142 H Hemoglobin A1c Calcium Phosphorus Magnesium AST Troponin T NT-Pro-B Natriuret Pep Albumin Triglycerides LDL Cholesterol Direct HDL Cholesterol PTH Intact 382.4 H Urine Creatinine Urine Total Protein 06/29/22 06/29/22 06/29/22 08:33 09:28 10:35 WBC RBC Hgb Hct Plt Count Lymph % (Auto) Moody # (Auto) Seg Neutrophils % Seg Neutrophils # PT INR APTT Heparin Anti-Xa Level Sodium Potassium Chloride Carbon Dioxide BUN Creatinine Glucose POC Glucose 141 H 167 H 152 H Hemoglobin A1c Calcium Phosphorus Magnesium AST Troponin T NT-Pro-B Natriuret Pep Albumin Triglycerides LDL Cholesterol Direct HDL Cholesterol PTH Intact Urine Creatinine Urine Total Protein 06/29/22 06/29/22 06/29/22 10:47 11:30 12:33 WBC RBC Hgb Hct Plt Count Lymph % (Auto) Moody # (Auto) Seg Neutrophils % Seg Neutrophils # PT INR APTT Heparin Anti-Xa Level Sodium 131 L Potassium Chloride 94.4 L Carbon Dioxide 15 L BUN 59 H Creatinine 2.2 H Glucose 149 H POC Glucose 134 H 146 H Hemoglobin A1c Calcium Phosphorus 5.80 H Magnesium AST Troponin T NT-Pro-B Natriuret Pep Albumin Triglycerides LDL Cholesterol Direct HDL Cholesterol PTH Intact Urine Creatinine Urine Total Protein 06/29/22 06/29/22 06/29/22 13:28 14:33 15:49 WBC RBC Hgb Hct Plt Count Lymph % (Auto) Moody # (Auto) Seg Neutrophils % Seg Neutrophils # PT INR APTT Heparin Anti-Xa Level Sodium Potassium Chloride Carbon Dioxide BUN Creatinine Glucose POC Glucose 170 H 188 H 155 H Hemoglobin A1c Calcium Phosphorus Magnesium AST Troponin T NT-Pro-B Natriuret Pep Albumin Triglycerides LDL Cholesterol Direct HDL Cholesterol PTH Intact Urine Creatinine Urine Total Protein 06/29/22 06/29/22 06/29/22 16:14 16:14 16:45 WBC RBC Hgb Hct Plt Count Lymph % (Auto) Moody # (Auto) Seg Neutrophils % Seg Neutrophils # PT INR APTT Heparin Anti-Xa Level 0.19 L Sodium 128 L Potassium Chloride 95.8 L Carbon Dioxide 15 L BUN 52 H Creatinine 1.8 H Glucose 138 H POC Glucose 135 H Hemoglobin A1c Calcium 7.9 L Phosphorus Magnesium AST Troponin T NT-Pro-B Natriuret Pep Albumin Triglycerides LDL Cholesterol Direct HDL Cholesterol PTH Intact Urine Creatinine Urine Total Protein 06/29/22 06/29/22 06/29/22 17:47 18:52 20:14 WBC RBC Hgb Hct Plt Count Lymph % (Auto) Moody # (Auto) Seg Neutrophils % Seg Neutrophils # PT INR APTT Heparin Anti-Xa Level Sodium Potassium Chloride Carbon Dioxide BUN Creatinine Glucose POC Glucose 150 H 123 H 155 H Hemoglobin A1c Calcium Phosphorus Magnesium AST Troponin T NT-Pro-B Natriuret Pep Albumin Triglycerides LDL Cholesterol Direct HDL Cholesterol PTH Intact Urine Creatinine Urine Total Protein 06/29/22 06/29/22 06/29/22 20:17 21:11 21:53 WBC RBC Hgb Hct Plt Count Lymph % (Auto) Moody # (Auto) Seg Neutrophils % Seg Neutrophils # PT INR APTT Heparin Anti-Xa Level Sodium 131 L Potassium 5.5 H D Chloride Carbon Dioxide 15 L BUN 56 H Creatinine 2.0 H Glucose 146 H POC Glucose 152 H 165 H Hemoglobin A1c Calcium Phosphorus 5.20 H Magnesium AST Troponin T NT-Pro-B Natriuret Pep Albumin Triglycerides LDL Cholesterol Direct HDL Cholesterol PTH Intact Urine Creatinine Urine Total Protein 06/29/22 06/30/22 06/30/22 23:07 00:18 00:58 WBC RBC Hgb Hct Plt Count Lymph % (Auto) Moody # (Auto) Seg Neutrophils % Seg Neutrophils # PT INR APTT Heparin Anti-Xa Level Sodium Potassium Chloride Carbon Dioxide BUN Creatinine Glucose POC Glucose 163 H 178 H 189 H Hemoglobin A1c Calcium Phosphorus Magnesium AST Troponin T NT-Pro-B Natriuret Pep Albumin Triglycerides LDL Cholesterol Direct HDL Cholesterol PTH Intact Urine Creatinine Urine Total Protein 06/30/22 06/30/22 06/30/22 01:57 02:59 03:53 WBC RBC Hgb Hct Plt Count Lymph % (Auto) Moody # (Auto) Seg Neutrophils % Seg Neutrophils # PT INR APTT Heparin Anti-Xa Level Sodium Potassium Chloride Carbon Dioxide BUN Creatinine Glucose POC Glucose 150 H 147 H 122 H Hemoglobin A1c Calcium Phosphorus Magnesium AST Troponin T NT-Pro-B Natriuret Pep Albumin Triglycerides LDL Cholesterol Direct HDL Cholesterol PTH Intact Urine Creatinine Urine Total Protein 06/30/22 06/30/22 06/30/22 04:56 05:25 05:52 WBC RBC Hgb Hct Plt Count Lymph % (Auto) Moody # (Auto) Seg Neutrophils % Seg Neutrophils # PT INR APTT Heparin Anti-Xa Level Sodium 132 L Potassium Chloride Carbon Dioxide 15 L BUN 53 H Creatinine 1.7 H Glucose 137 H POC Glucose 110 H 150 H Hemoglobin A1c Calcium Phosphorus Magnesium AST Troponin T NT-Pro-B Natriuret Pep Albumin Triglycerides LDL Cholesterol Direct HDL Cholesterol PTH Intact Urine Creatinine Urine Total Protein 06/30/22 06/30/22 06/30/22 07:25 08:20 09:20 WBC RBC Hgb Hct Plt Count Lymph % (Auto) Moody # (Auto) Seg Neutrophils % Seg Neutrophils # PT INR APTT Heparin Anti-Xa Level Sodium Potassium Chloride Carbon Dioxide BUN Creatinine Glucose POC Glucose 133 H 119 H 128 H Hemoglobin A1c Calcium Phosphorus Magnesium AST Troponin T NT-Pro-B Natriuret Pep Albumin Triglycerides LDL Cholesterol Direct HDL Cholesterol PTH Intact Urine Creatinine Urine Total Protein 06/30/22 06/30/22 06/30/22 10:21 10:59 11:25 WBC RBC Hgb Hct Plt Count Lymph % (Auto) Moody # (Auto) Seg Neutrophils % Seg Neutrophils # PT INR APTT Heparin Anti-Xa Level Sodium 132 L Potassium Chloride Carbon Dioxide 16 L BUN 49 H Creatinine 1.7 H Glucose 168 H POC Glucose 133 H 232 H Hemoglobin A1c Calcium 8.1 L Phosphorus Magnesium AST Troponin T NT-Pro-B Natriuret Pep Albumin Triglycerides LDL Cholesterol Direct HDL Cholesterol PTH Intact Urine Creatinine Urine Total Protein 06/30/22 06/30/22 07/01/22 16:15 21:30 05:10 WBC RBC Hgb Hct Plt Count Lymph % (Auto) Moody # (Auto) Seg Neutrophils % Seg Neutrophils # PT INR APTT Heparin Anti-Xa Level 0.24 L Sodium Potassium Chloride Carbon Dioxide BUN Creatinine Glucose POC Glucose 325 H 279 H Hemoglobin A1c Calcium Phosphorus Magnesium AST Troponin T NT-Pro-B Natriuret Pep Albumin Triglycerides LDL Cholesterol Direct HDL Cholesterol PTH Intact Urine Creatinine Urine Total Protein 07/01/22 07/01/22 07/01/22 05:10 07:38 09:13 WBC RBC Hgb Hct Plt Count Lymph % (Auto) Moody # (Auto) Seg Neutrophils % Seg Neutrophils # PT 15.9 H INR 1.14 H APTT Heparin Anti-Xa Level Sodium 132 L Potassium Chloride 97.8 L Carbon Dioxide 19 L BUN 34 H Creatinine 1.3 H Glucose 250 H POC Glucose 235 H Hemoglobin A1c Calcium Phosphorus Magnesium AST Troponin T NT-Pro-B Natriuret Pep Albumin Triglycerides LDL Cholesterol Direct HDL Cholesterol PTH Intact Urine Creatinine Urine Total Protein 07/01/22 07/01/22 07/01/22 12:03 13:42 16:32 WBC RBC Hgb Hct Plt Count Lymph % (Auto) Moody # (Auto) Seg Neutrophils % Seg Neutrophils # PT INR APTT Heparin Anti-Xa Level 0.25 L Sodium Potassium Chloride Carbon Dioxide BUN Creatinine Glucose POC Glucose 272 H 316 H Hemoglobin A1c Calcium Phosphorus Magnesium AST Troponin T NT-Pro-B Natriuret Pep Albumin Triglycerides LDL Cholesterol Direct HDL Cholesterol PTH Intact Urine Creatinine Urine Total Protein 07/01/22 07/01/22 07/02/22 21:21 23:14 07:41 WBC RBC Hgb Hct Plt Count Lymph % (Auto) Moody # (Auto) Seg Neutrophils % Seg Neutrophils # PT INR APTT Heparin Anti-Xa Level 0.27 L Sodium Potassium Chloride Carbon Dioxide BUN Creatinine Glucose POC Glucose 262 H 287 H Hemoglobin A1c Calcium Phosphorus Magnesium AST Troponin T NT-Pro-B Natriuret Pep Albumin Triglycerides LDL Cholesterol Direct HDL Cholesterol PTH Intact Urine Creatinine Urine Total Protein 07/02/22 07/02/22 07/02/22 08:12 08:12 20:28 WBC RBC Hgb 14.7 H Hct 46.3 H Plt Count 138 L Lymph % (Auto) Moody # (Auto) Seg Neutrophils % Seg Neutrophils # PT INR APTT Heparin Anti-Xa Level 0.21 L Sodium 129 L Potassium Chloride 95.7 L Carbon Dioxide 17 L BUN 24 H Creatinine Glucose 275 H POC Glucose Hemoglobin A1c Calcium Phosphorus 2.10 L D Magnesium AST Troponin T NT-Pro-B Natriuret Pep Albumin Triglycerides LDL Cholesterol Direct HDL Cholesterol PTH Intact Urine Creatinine Urine Total Protein 07/02/22 07/02/22 20:28 23:01 WBC RBC Hgb Hct Plt Count Lymph % (Auto) Moody # (Auto) Seg Neutrophils % Seg Neutrophils # PT 17.3 H INR 1.26 H APTT 24.1 L Heparin Anti-Xa Level Sodium Potassium Chloride Carbon Dioxide BUN Creatinine Glucose POC Glucose 340 H Hemoglobin A1c Calcium Phosphorus Magnesium AST Troponin T NT-Pro-B Natriuret Pep Albumin Triglycerides LDL Cholesterol Direct HDL Cholesterol PTH Intact Urine Creatinine Urine Total Protein Allied health notes reviewed: nursing
[2022-07-03] MEDS: INSULIN REGULAR, HUMAN 100 UNITS/1 ML SUB-Q SCH ×4 (07:30→16:55)
[2022-07-03] MEDS: PANTOPRAZOLE 40 MG TAB PO SCH ×2 (07:30→16:57)
[2022-07-03] MEDS: SODIUM BICARBONATE 650 MG TAB PO SCH ×3 (08:00→21:50)
[2022-07-03] MEDS: INSULIN NPH/REGULAR 70/30 INJ SUB-Q SCH ×2 (09:00→16:55)
[2022-07-03] MEDS: APIXABAN 5 MG TAB PO SCH ×2 (09:31→21:50)
[2022-07-03] MEDS: HALOPERIDOL 5 MG TAB PO SCH ×2 (09:31→21:50)
[2022-07-03 12:30] LABS: Hematocrit 38.9 % (30.3-42.9); Mean Corpuscular HGB Conc 33 % (30-34); Mean Corpuscular Volume 91 fl (79-97); Platelet Count 207 K/mm3 (140-440); Red Blood Count 4.27 M/mm3 (3.65-5.03); Red Cell Distribution Width 14.6 % (13.2-15.2)
[2022-07-03 12:54] LABS: Calcium 8.9 mg/dL (8.4-10.2)
--- NOTE | 2022-07-03 14:29 | Progress Note ---
Assessment and Plan 1. Acute kidney injury: Suspect vasomotor STFEFANIE in the setting of DKA/volume depletion. Renal US negative for hydro/stone. Monitor renal function. Creatinine level improving. Avoid nephrotoxic agents. Meds dosage based on GFR. 2. FEN: Hyperkalemia, improved. Anion-gap Metabolic acidosis, 2/2 DKA, monitor. Replete lytes as needed. Monitor lytes and volume status. 3. DKA: Admits to stop taking meds at home. S/p Insulin drip. Improved. Monitor. 4. Acute DVT involving the external iliac veins bilaterally with thrombus extending distally bilaterally: S/p LE angioplsty Followed by Vascular. 5. Hypertension: Monitor BP. 6. H/o COPD. Subjective: Patient was seen and examined at the bedside. Examination: General appearance: well-developed, obese, appears stated age, no distress HEENT: atraumatic, SANDRA, no icterus Neck: trachea midline Respiratory: ctab Heart: S1S2, regular, no murmur Abdomen: soft, obese, bowel sounds heard, NT Integumentary: no rash on the inspected area Neurologic: sleeping, arousable Ext: trace Ext and dependent edema Subjective Date of service: 07/03/22 Principal diagnosis: AHRF; DKA; Hyperkalemia; COPD; ? cellulitis; PVD; STEFFANIE; Morbid obesity; ?JACKLYN Objective - Vital Signs Vital signs: Vital Signs - 12hr 07/03/22 07/03/22 07/03/22 05:04 10:00 10:26 Temperature 98.5 F 98.8 F Pulse Rate 71 84 Respiratory 18 18 Rate Blood Pressure 151/65 100/81 O2 Sat by Pulse 98 98 84 Oximetry 07/03/22 10:28 Temperature Pulse Rate Respiratory Rate Blood Pressure O2 Sat by Pulse 92 Oximetry - Lab 07/03/22 12:20 07/03/22 12:20 Most recent lab results Calcium 8.9 mg/dL (8.4-10.2) 07/03/22 12:20 Phosphorus 2.10 mg/dL (2.5-4.5) L D 07/02/22 08:12 Magnesium 2.30 mg/dL (1.7-2.3) 07/02/22 08:12 Urine Creatinine 85.4 mg/dL (0.1-20.0) H 06/28/22 08:10 Urine Sodium 10 mmol/L 06/28/22 08:10 Urine Total Protein 49 mg/dL (5-11.8) H 06/28/22 08:10 Medications & Allergies - Medications Allergies/Adverse Reactions: Allergies ciprofloxacin [From Cipro] Allergy (Verified 05/28/22 12:07) Unknown Penicillins Allergy (Verified 05/28/22 12:07) Unknown Home Medications: Home Medications Medication Instructions Recorded Confirmed Last Taken Type Apixaban [Eliquis] 5 mg PO BID 04/13/21 06/28/22 Unknown History Empagliflozin [Jardiance] 25 mg DAILY 04/13/21 06/28/22 Unknown History Fenofibrate 160 mg PO DAILY 04/13/21 06/28/22 Unknown History Glimepiride 4 mg BID 04/13/21 06/28/22 Unknown History Insulin Aspart (Nf) [NovoLOG 100 unit SQ PRN PRN 04/13/21 06/28/22 Unknown History Flexpen] Levothyroxine [Synthroid] 112 mcg PO QAM 04/13/21 06/28/22 Unknown History Lisinopril/Hydrochlorothiazide 1 tab PO QDAY 04/13/21 06/28/22 Unknown History [Zestoretic 20-12.5 mg] [place] Carbonate 600 mg PO QHS 04/13/21 06/28/22 Unknown History [place] Carbonate [Eskalith] 150 mg PO QAM 04/13/21 06/28/22 Unknown History Lurasidone [Latuda] 40 mg QHS 04/13/21 06/28/22 Unknown History Oxybutynin Chloride [Ditropan Xl] 15 mg PO QDAY 04/13/21 06/28/22 Unknown History Semaglutide [Ozempic] 1 unit SQ 1XW 04/13/21 06/28/22 Unknown History Venlafaxine HCl [Venlafaxine HCl 150 mg DAILY 04/13/21 06/28/22 Unknown History ER] buPROPion SR [Wellbutrin SR] 100 mg PO DAILY 04/13/21 06/28/22 Unknown History Doxycycline Hyclate [Doxycycline 100 mg PO Q12HR 7 Days #14 04/14/21 06/28/22 Unknown Rx Hyclate TAB] Active Medications: Generic Name Dose Route Start Last Admin Trade Name Freq PRN Reason Stop Dose Admin Acetaminophen 650 mg 06/28/22 03:09 Acetaminophen 325 Mg Tab PO Q6H PRN Pain MILD(1-3)/Fever >100.5/MURILLO Apixaban 10 mg 07/02/22 22:00 07/03/22 09:31 Apixaban 5 Mg Tab PO 07/09/22 22:01 10 mg Q12HR SHANTHI Administration Protocol Apixaban 5 mg 07/10/22 10:00 Apixaban 5 Mg Tab PO Q12HR SHANTHI Protocol Dextrose 50 ml 06/30/22 09:00 Dextrose 50% In Water (25gm) 50 Ml Syringe IV Q30MIN PRN Hypoglycemia Protocol Divalproex Sodium 250 mg 06/30/22 20:00 07/03/22 08:[address] 250 Mg Tab PO 250 mg Q6H SHANTHI Administration Haloperidol 5 mg 06/30/22 22:00 07/03/22 09:31 Haloperidol 5 Mg Tab PO 5 mg BID SHANTHI Administration Insulin Human Isoph/Insulin Regular 15 unit 07/03/22 09:00 07/03/22 09:00 Insulin Nph/Regular 70/30 Inj SUB-Q 15 unit BIDDIAB SHANTHI Administration Insulin Human Regular 8 units 07/01/22 07:35 07/03/22 11:30 Insulin Regular, Human 100 Units/1 Ml SUB-Q 8 units AC SHANTHI Administration Morphine Sulfate 2 mg 06/28/22 03:09 06/28/22 18:06 Morphine 2 Mg/1 Ml Inj IV 2 mg Q4H PRN Administration Pain, Moderate (4-6) Ondansetron HCl 4 mg 06/28/22 03:09 06/28/22 05:44 Ondansetron 4 Mg/2 Ml Inj IV 4 mg Q8H PRN Administration Nausea And Vomiting Pantoprazole Sodium 40 mg 07/03/22 07:30 07/03/22 07:30 Pantoprazole 40 Mg Tab PO 40 mg BIDAC SHANTHI Administration Sodium Bicarbonate 1,300 mg 07/02/22 14:00 07/03/22 08:00 Sodium Bicarbonate 650 Mg Tab PO 1,300 mg TID SHANTHI Administration Sodium Chloride 10 ml 06/28/22 10:00 07/03/22 09:31 Sodium Chloride 0.9% 10 Ml Flush Syringe IV 10 ml BID SHANTHI Administration Sodium Chloride 10 ml 06/28/22 03:09 Sodium Chloride 0.9% 10 Ml Flush Syringe IV PRN PRN LINE FLUSH
--- NOTE | 2022-07-03 15:05 | Progress Note ---
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 She had a longstanding filter placed for prior reasons. She underwent thrombectomy which was successful. Her abdominal pain and lower leg pain has improved. Popliteal stitches removed and Dermabond applied. Recommend continuation of CHRISTOPHER hose. Recommend SCDs. Recommend continuation of Eliquis 10 mg p.o. twice daily x7 days then Eliquis 5 mg p.o. twice daily afterwards. This will need to be for life. Patient require lifelong anticoagulation. Recommend wound care for ulcers of the calf. Subjective Date of service: 07/03/22 Principal diagnosis: AHRF; DKA; Hyperkalemia; COPD; ? cellulitis; PVD; STEFFANIE; Morbid obesity; ?JACKLYN Interval history: Patient improving. Abdominal pain improved. Leg pain improved. Rolled patient to side and removed stitches from popliteal fossa region. Applied Betadine. Applied surgical glue. Applied bandage. Change CHRISTOPHER hose. Reapplied SCDs. Objective - Constitutional Vitals: Vital Signs - 12hr 07/03/22 07/03/22 07/03/22 05:04 10:00 10:26 Temperature 98.5 F 98.8 F Pulse Rate 71 84 Respiratory 18 18 Rate Blood Pressure 151/65 100/81 O2 Sat by Pulse 98 98 84 Oximetry 07/03/22 10:28 Temperature Pulse Rate Respiratory Rate Blood Pressure O2 Sat by Pulse 92 Oximetry General appearance: Present: no acute distress - EENT Eyes: EOM intact ENT: hearing intact - Respiratory Respiratory effort: normal Extremities: pulses intact Extremity abnormal: edema (1+ edema, bilateral ulcers of the calves from large bulla), tenderness (Popliteal region) - Gastrointestinal General gastrointestinal: Present: soft, non-tender - Psychiatric Psychiatric: cooperative - Labs CBC & Chem 7: 07/03/22 12:20 07/03/22 12:20 Labs: Abnormal lab results 07/01/22 07/01/22 07/01/22 Range/Units 12:03 16:32 21:21 Hgb (10.1-14.3) gm/dl Hct (30.3-42.9) % Plt Count (140-440) K/mm3 PT (12.2-14.9) Sec. INR (0.87-1.13) APTT (24.2-36.6) Sec. Heparin Anti-Xa Level (0.3-0.7) U.I./ml Sodium (137-145) mmol/L BUN (7-17) mg/dL Glucose (65-100) mg/dL POC Glucose 272 H 316 H 262 H (70-105) mg/dL 07/02/22 07/02/22 07/02/22 Range/Units 08:12 20:28 20:28 Hgb 14.7 H (10.1-14.3) gm/dl Hct 46.3 H (30.3-42.9) % Plt Count 138 L (140-440) K/mm3 PT 17.3 H (12.2-14.9) Sec. INR 1.26 H (0.87-1.13) APTT 24.1 L (24.2-36.6) Sec. Heparin Anti-Xa Level 0.21 L (0.3-0.7) U.I./ml Sodium (137-145) mmol/L BUN (7-17) mg/dL Glucose (65-100) mg/dL POC Glucose (70-105) mg/dL 07/02/22 07/03/22 07/03/22 Range/Units 23:01 07:28 12:20 Hgb (10.1-14.3) gm/dl Hct (30.3-42.9) % Plt Count (140-440) K/mm3 PT (12.2-14.9) Sec. INR (0.87-1.13) APTT (24.2-36.6) Sec. Heparin Anti-Xa Level (0.3-0.7) U.I./ml Sodium 134 L (137-145) mmol/L BUN 18 H (7-17) mg/dL Glucose 271 H (65-100) mg/dL POC Glucose 340 H 261 H (70-105) mg/dL Medications & Allergies - Medications Allergies/Adverse Reactions: Allergies ciprofloxacin [From Cipro] Allergy (Verified 05/28/22 12:07) Unknown Penicillins Allergy (Verified 05/28/22 12:07) Unknown Home Medications: Home Medications Medication Instructions Recorded Confirmed Last Taken Type Apixaban [Eliquis] 5 mg PO BID 04/13/21 06/28/22 Unknown History Empagliflozin [Jardiance] 25 mg DAILY 04/13/21 06/28/22 Unknown History Fenofibrate 160 mg PO DAILY 04/13/21 06/28/22 Unknown History Glimepiride 4 mg BID 04/13/21 06/28/22 Unknown History Insulin Aspart (Nf) [NovoLOG 100 unit SQ PRN PRN 04/13/21 06/28/22 Unknown History Flexpen] Levothyroxine [Synthroid] 112 mcg PO QAM 04/13/21 06/28/22 Unknown History Lisinopril/Hydrochlorothiazide 1 tab PO QDAY 04/13/21 06/28/22 Unknown History [Zestoretic 20-12.5 mg] [place] Carbonate 600 mg PO QHS 04/13/21 06/28/22 Unknown History [place] Carbonate [Eskalith] 150 mg PO QAM 04/13/21 06/28/22 Unknown History Lurasidone [Latuda] 40 mg QHS 04/13/21 06/28/22 Unknown History Oxybutynin Chloride [Ditropan Xl] 15 mg PO QDAY 04/13/21 06/28/22 Unknown History Semaglutide [Ozempic] 1 unit SQ 1XW 04/13/21 06/28/22 Unknown History Venlafaxine HCl [Venlafaxine HCl 150 mg DAILY 04/13/21 06/28/22 Unknown History ER] buPROPion SR [Wellbutrin SR] 100 mg PO DAILY 04/13/21 06/28/22 Unknown History Doxycycline Hyclate [Doxycycline 100 mg PO Q12HR 7 Days #14 04/14/21 06/28/22 Unknown Rx Hyclate TAB] Active Medications: Generic Name Dose Route Start Last Admin Trade Name Freq PRN Reason Stop Dose Admin Acetaminophen 650 mg 06/28/22 03:09 Acetaminophen 325 Mg Tab PO Q6H PRN Pain MILD(1-3)/Fever >100.5/MURILLO Apixaban 10 mg 07/02/22 22:00 07/03/22 09:31 Apixaban 5 Mg Tab PO 07/09/22 22:01 10 mg Q12HR SHANTHI Administration Protocol Apixaban 5 mg 07/10/22 10:00 Apixaban 5 Mg Tab PO Q12HR SHANTHI Protocol Dextrose 50 ml 06/30/22 09:00 Dextrose 50% In Water (25gm) 50 Ml Syringe IV Q30MIN PRN Hypoglycemia Protocol Divalproex Sodium 250 mg 06/30/22 20:00 07/03/22 08:[address] 250 Mg Tab PO 250 mg Q6H SHANTHI Administration Haloperidol 5 mg 06/30/22 22:00 07/03/22 09:31 Haloperidol 5 Mg Tab PO 5 mg BID SHANTHI Administration Insulin Human Isoph/Insulin Regular 15 unit 07/03/22 09:00 07/03/22 09:00 Insulin Nph/Regular 70/30 Inj SUB-Q 15 unit BIDDIAB SHANTHI Administration Insulin Human Regular 8 units 07/01/22 07:35 07/03/22 11:30 Insulin Regular, Human 100 Units/1 Ml SUB-Q 8 units AC SHANTHI Administration Morphine Sulfate 2 mg 06/28/22 03:09 06/28/22 18:06 Morphine 2 Mg/1 Ml Inj IV 2 mg Q4H PRN Administration Pain, Moderate (4-6) Ondansetron HCl 4 mg 06/28/22 03:09 06/28/22 05:44 Ondansetron 4 Mg/2 Ml Inj IV 4 mg Q8H PRN Administration Nausea And Vomiting Pantoprazole Sodium 40 mg 07/03/22 07:30 07/03/22 07:30 Pantoprazole 40 Mg Tab PO 40 mg BIDAC SHANTHI Administration Sodium Bicarbonate 1,300 mg 07/02/22 14:00 07/03/22 08:00 Sodium Bicarbonate 650 Mg Tab PO 1,300 mg TID SHANTHI Administration Sodium Chloride 10 ml 06/28/22 10:00 07/03/22 09:31 Sodium Chloride 0.9% 10 Ml Flush Syringe IV 10 ml BID SHANTHI Administration Sodium Chloride 10 ml 06/28/22 03:09 Sodium Chloride 0.9% 10 Ml Flush Syringe IV PRN PRN LINE FLUSH HEART Score - HEART Score Troponin: Troponin T 0.080 ng/mL (0.00-0.029) H 06/27/22 20:48
--- NOTE | 2022-07-03 17:52 | Progress Note ---
Assessment and Plan Assessment and plan: 06/28: Mentation improved, denied any abdominal pain, no nausea/vomiting. BG and anio gap still elevated. Continue insulin gtt and IVF resuscitation per protocol. Monitor and replace electrolytes as needed, serial Labs ordered. Transition to subQ once gap is closed. BLE ischemia noted, extremities are pu rple and cool to touch, palpable pedal pulses appreciated. Patient reported that she has a history of PE/DVT on Eliquis but she admitted that she has not been complaints with any of her medications for 3 days. 06/29: Anion Gap still greater than 20, and CO2 15 this am. 1amp of bcarb given, continue Insulin gtt and IVF resuscitation per protocol. repeat BMP ordered, will transition to subQ once gap is closed. BLE doppler noted with extensive BLE DVT, patient remains on the heparin gtt. Patient reported she was on PO Eliquis at home and had a IVF filter placed. Vascular Surgery is also following, appreciate recommendations. Hyponatremia improving, appreciate Nephrology's recs. 06/30: Remains stable. Still on the DKA protocol, BG level has been less than 200s for over 24hrs, anion gap still in the 20s this am, probably due to STEFFANIE. Will transition patient to Subq insulin. Patient remains on the heparin gtt. BLE is unchanged, CHRISTOPHER hose applied. Per vascular Surgery, possible interventions/th rombectomy once the patient is stabilized. 07/01: Transition to subQ insulin yesteday. Patient remains stable, tolerating PO intake. Insulin regimen adjusted for hyperglycemia, continue BG check ACHS and IVF hydration for now. Hyponatremia is improving, nephrology is following. Patient remains on heparin gtt per protocol for BLE ischemia. Possible interventions/thrombectomy tomorrow per Vascular Surgery. 07/02: Patient seen and examined at the bedside. Remains stable on RA, VSS. Yesterday was transitioned to SubQ insulin, tolerating PO intake. BLE ischemia is unchanged with palpable pedal pulses. CHRISTOPHER Hose applied per Vascular Surgery. Discussed with vascular surgery today they are going to proceed with bilateral thrombectomy. We will continue on heparin drip at this time. Education pr ovided to the patient on blood sugar control. Compliance discussion also had for 15 minutes counseling. 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 Vascular surgery consulted; appreciate recs Heparin drip discontinued. Initiating Eliquis 10 mg every 12 hours x7 days and then transition to lifelong Eliquis 5 mg every 12 hours. Sutures removed by vascular surgery. Ordering physical therapy consult (when cleared by vascular surgery); pending recs. General surgery consulted for wound care management; pending recs Continue to monitor #Non-insulin dependent type II diabetes mellitus with hyperglycemia - hemoglobin A1c: Unknown - home regimen: Jardiance 25 mg daily, glimepiride 4 mg twice daily, Latuda 40 mg nightly, Ozempic 1 unit subcutaneous weekly - current regimen: NPH 25 units twice daily, regular insulin 8 units with meals, moderate SSI - blood glucose goal 140-180 while inpatient - continue to monitor #Hypertension #Hyperlipidemia - home medications: Lisinopril/hydrochlorothiazide 20-1.5 mg daily, fenofibrate 160 mg daily - current medications: Fenofibrate 160 mg daily, lisinopril 20 mg daily - SBP goal <160 and DBP goal <90 while inpatient - continue to monitor #Hypothyroidism Continue home levothyroxine 112 mcg daily #H/O COPD #Hyponatremiaimproved #Bipolar Disorder We will restart home medications tomorrow: [place] 150 mg every morning, 600 mg nightly, venlafaxine 150 mg daily #Medication noncompliance #Tobacco dependence #Tobacco/Smoking cessation counseling - Counseled patient about the importance of smoking cessation and the possible sequelae as a result of continued tobacco consumption. The patient expresses understanding. -Time: +15 mins #Morbid obesity #Weight loss counseling #Exercise counseling - BMI 52.8 - Counseled patient on the importance of weight loss, incorporating exercise, and dietary changes (lean meats, fresh fruits and vegetables, and water intake). Patient expresses understanding. - Time: +15 min Resolved diagnoses: DKA Acute metabolic encephalopathy Leukocytosis Hyperkalemia STEFFANIE secondary to vasomotor nephropathy #Advance Care Planning - Disease education data, care plan, diagnoses, and prognosis were discussed with patient at the bedside. Patient is a FULL code. Patient acknowledged understanding and agreed with current care plan. Disposition Plan: Continue medical management Total Time Spent with Patient (Minutes): 45 minutes History Interval history: Patient underwent thrombectomy of bilateral caval iliofemoral DVTs by vascular surgery on 07/02/2022. Patient tolerated the procedure well. Hospitalist Physical - Constitutional Vitals: Temp Pulse Resp BP Pulse Ox 97.6 F 88 26 H 157/82 94 07/03/22 16:26 07/03/22 16:26 07/03/22 16:26 07/03/22 16:26 07/03/22 16:28 General appearance: Present: no acute distress, well-nourished, obese - EENT Eyes: Present: PERRL, EOM intact ENT: hearing intact, clear oral mucosa - Neck Neck: Present: supple, normal ROM - Respiratory Respiratory effort: normal Respiratory: bilateral: diminished - Cardiovascular Rhythm: regular Heart Sounds: Present: S1 & S2 - Extremities Extremities: no ischemia, pulses intact, pulses symmetrical, normal temperature, normal color Extremity abnormal: tenderness (Appropriate tenderness of surgical sites of bilateral lower extremities) Peripheral Pulses: within normal limits - Abdominal General gastrointestinal: soft, non-tender, non-distended, normal bowel sounds - Integumentary Integumentary: Present: clear, warm, dry - Psychiatric Psychiatric: appropriate mood/affect, cooperative - Neurologic Neurologic: CNII-XII intact - Allied Health Allied health notes reviewed: nursing HEART Score - HEART Score Troponin: Troponin T 0.080 ng/mL (0.00-0.029) H 06/27/22 20:48 Results - Labs CBC & Chem 7: 07/03/22 12:20 07/03/22 12:20 Labs: Laboratory Last Values WBC 9.3 K/mm3 (4.5-11.0) 07/03/22 12:20 RBC 4.27 M/mm3 (3.65-5.03) 07/03/22 12:20 Hgb 13.0 gm/dl (10.1-14.3) 07/03/22 12:20 Hct 38.9 % (30.3-42.9) D 07/03/22 12:20 MCV 91 fl (79-97) 07/03/22 12:20 MCH 31 pg (28-32) 07/03/22 12:20 MCHC 33 % (30-34) 07/03/22 12:20 RDW 14.6 % (13.2-15.2) 07/03/22 12:20 Plt Count 207 K/mm3 (140-440) 07/03/22 12:20 Lymph % (Auto) 6.3 % (13.4-35.0) L 06/27/22 20:48 [place] % (Auto) 4.8 % (0.0-7.3) 06/27/22 20:48 Eos % (Auto) 0.0 % (0.0-4.3) 06/27/22 20:48 Baso % (Auto) 0.3 % (0.0-1.8) 06/27/22 20:48 Lymph # (Auto) 1.2 K/mm3 (1.2-5.4) 06/27/22 20:48 [place] # (Auto) 0.9 K/mm3 (0.0-0.8) H 06/27/22 20:48 Eos # (Auto) 0.0 K/mm3 (0.0-0.4) 06/27/22 20:48 Baso # (Auto) 0.1 K/mm3 (0.0-0.1) 06/27/22 20:48 Seg Neutrophils % 88.6 % (40.0-70.0) H 06/27/22 20:48 Seg Neutrophils # 16.5 K/mm3 (1.8-7.7) H 06/27/22 20:48 PT 17.3 Sec. (12.2-14.9) H 07/02/22 20:28 INR 1.26 (0.87-1.13) H 07/02/22 20:28 APTT 24.1 Sec. (24.2-36.6) L 07/02/22 20:28 Heparin Anti-Xa Level 0.21 U.I./ml (0.3-0.7) L 07/02/22 08:12 Sodium 134 mmol/L (137-145) L 07/03/22 12:20 Potassium 4.0 mmol/L (3.6-5.0) 07/03/22 12:20 Chloride 99.1 mmol/L (98-107) 07/03/22 12:20 Carbon Dioxide 24 mmol/L (22-30) D 07/03/22 12:20 Anion Gap 15 mmol/L 07/03/22 12:20 BUN 18 mg/dL (7-17) H 07/03/22 12:20 Creatinine 1.0 mg/dL (0.6-1.2) 07/03/22 12:20 Estimated GFR 58 ml/min 07/03/22 12:20 BUN/Creatinine Ratio 18 % 07/03/22 12:20 Glucose 271 mg/dL (65-100) H 07/03/22 12:20 POC Glucose 255 mg/dL (70-105) H 07/03/22 16:23 Hemoglobin A1c 9.7 % (4-6) H 06/28/22 20:31 Lactic Acid 1.90 mmol/L (0.7-2.0) 06/29/22 10:47 Calcium 8.9 mg/dL (8.4-10.2) 07/03/22 12:20 Phosphorus 2.10 mg/dL (2.5-4.5) L D 07/02/22 08:12 Magnesium 2.30 mg/dL (1.7-2.3) 07/02/22 08:12 Total Bilirubin 0.90 mg/dL (0.1-1.2) 06/27/22 20:48 AST 50 units/L (5-40) H 06/27/22 20:48 ALT 28 units/L (7-56) 06/27/22 20:48 Alkaline Phosphatase 97 units/L (35-129) 06/27/22 20:48 Troponin T 0.080 ng/mL (0.00-0.029) H 06/27/22 20:48 NT-Pro-B Natriuret Pep 4137 pg/mL (0-900) H 06/27/22 20:48 Total Protein 7.0 g/dL (6.3-8.2) 06/27/22 20:48 Albumin 3.1 g/dL (3.9-5) L 06/27/22 20:48 Albumin/Globulin Ratio 0.8 % 06/27/22 20:48 Triglycerides 349 mg/dL (2-149) H 06/27/22 20:48 Cholesterol 156 mg/dL (50-199) 06/27/22 20:48 LDL Cholesterol Direct 37 mg/dL (50-130) L 06/27/22 20:48 HDL Cholesterol 38 mg/dL (40-59) L 06/27/22 20:48 Cholesterol/HDL Ratio 4.10 % 06/27/22 20:48 Procalcitonin 2.51 ng/mL (<0.15) 06/29/22 10:47 PTH Intact 382.4 pg/mL (15-65) H 06/29/22 04:21 Urine Creatinine 85.4 mg/dL (0.1-20.0) H 06/28/22 08:10 Protein/Creatinin Ratio 0.57 06/28/22 08:10 Urine Sodium 10 mmol/L 06/28/22 08:10 Urine Total Protein 49 mg/dL (5-11.8) H 06/28/22 08:10 Tian/IV: Voiding Method External Female Catheter Active Medications - Current Medications Current Medications: Generic Name Dose Route Start Last Admin Trade Name Freq PRN Reason Stop Dose Admin Acetaminophen 650 mg 06/28/22 03:09 Acetaminophen 325 Mg Tab PO Q6H PRN Pain MILD(1-3)/Fever >100.5/MURILLO Apixaban 10 mg 07/02/22 22:00 07/03/22 09:31 Apixaban 5 Mg Tab PO 07/09/22 22:01 10 mg Q12HR SHANTHI Administration Protocol Apixaban 5 mg 07/10/22 10:00 Apixaban 5 Mg Tab PO Q12HR SHANTHI Protocol Dextrose 50 ml 06/30/22 09:00 Dextrose 50% In Water (25gm) 50 Ml Syringe IV Q30MIN PRN Hypoglycemia Protocol Divalproex Sodium 250 mg 06/30/22 20:00 07/03/22 14:[address] 250 Mg Tab PO 250 mg Q6H SHANTHI Administration Haloperidol 5 mg 06/30/22 22:00 07/03/22 09:31 Haloperidol 5 Mg Tab PO 5 mg BID SHANTHI Administration Insulin Human Isoph/Insulin Regular 15 unit 07/03/22 09:00 07/03/22 16:55 Insulin Nph/Regular 70/30 Inj SUB-Q 15 unit BIDDIAB SHANTHI Administration Insulin Human Regular 8 units 07/01/22 07:35 07/03/22 16:55 Insulin Regular, Human 100 Units/1 Ml SUB-Q 8 units AC SHANTHI Administration Morphine Sulfate 2 mg 06/28/22 03:09 06/28/22 18:06 Morphine 2 Mg/1 Ml Inj IV 2 mg Q4H PRN Administration Pain, Moderate (4-6) Ondansetron HCl 4 mg 06/28/22 03:09 06/28/22 05:44 Ondansetron 4 Mg/2 Ml Inj IV 4 mg Q8H PRN Administration Nausea And Vomiting Pantoprazole Sodium 40 mg 07/03/22 07:30 07/03/22 16:57 Pantoprazole 40 Mg Tab PO 40 mg BIDAC SHANTHI Administration Sodium Bicarbonate 1,300 mg 07/02/22 14:00 07/03/22 14:00 Sodium Bicarbonate 650 Mg Tab PO 1,300 mg TID SHANTHI Administration Sodium Chloride 10 ml 06/28/22 10:00 07/03/22 09:31 Sodium Chloride 0.9% 10 Ml Flush Syringe IV 10 ml BID SHANTHI Administration Sodium Chloride 10 ml 06/28/22 03:09 Sodium Chloride 0.9% 10 Ml Flush Syringe IV PRN PRN LINE FLUSH Nutrition/Malnutrition Assess - Dietary Evaluation Nutrition/Malnutrition Findings: Nutrition Notes Start: 06/28/22 11:39 Freq: Status: Active Protocol: Document 07/02/22 13:18 CM (Rec: 07/02/22 13:24 CM [id number]) Co-Sign 07/02/22 13:18 WW Nutrition Notes Initial or Follow up Brief Note Current Diagnosis COPD,Diabetes,Hypertension Other Pertinent Diagnosis DKA Current Diet NPO after Midnight Labs/Tests 07/02: Na 129 Cl 95.7 CO2 17 BUN 24 Glu 275 Pertinent Medications 07/02: Humulin Height 5 ft 4 in Weight 139.6 kg [place] Body Weight (kg) 54.54 BMI 52.8 Weight Status Morbidly Obese Subjective/Other Information RD follow-up per protocol. 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 Lunch and dinner 07/01 - 100% per ADL notes. Physical assessment reviewed. Percent of energy/protein needs met: Pt is NPO at this time. When feasible, initiate cardiac/consistent carbohydrate diet - 1977kcal / 86g PRO q day GI Symptoms None Food Allergy No Skin Integrity/Comment Delroy 15 - Bruises Current % PO Good (75-100%) #1 Nutrition Diagnosis Overweight/obesity Diagnosis Progress(for reassessment Continues documentation) Nutrition Intervention Change Diet Order: Advance pt to cardiac/ consistent carbohydrate diet as feasible. Goal #1 Pt to advance to cardiac/ consistent carbohydrate diet Goal #2 Pt to consume >75% of estimated energy/protein needs through recommended diet order Follow-Up By: 07/09/22 Additional Comments Monitor need for diet education, nutrition-related labs, %PO intake, and GI symptoms.
[2022-07-03] MEDS ORDERED: INSULIN REGULAR, HUMAN 100 UNITS/1 ML SUB-Q ONE (17:59)
[2022-07-04] MEDS: DIVALPROEX DR 250 MG TAB PO SCH ×4 (02:00→22:42)
[2022-07-04 06:28] LABS: Basophils % (Auto) 0.5 % (0.0-1.8); Eosinophils % (Auto) 0.4 % (0.0-4.3); Hematocrit 40.9 % (30.3-42.9); Hemoglobin 13.5 gm/dl (10.1-14.3); Lymphocytes # (Auto) 0.8 K/mm3 (1.2-5.4); Lymphocytes % (Auto) 8.4 % (13.4-35.0); Mean Corpuscular HGB Conc 33 % (30-34); Mean Corpuscular Volume 92 fl (79-97); Monocytes % (Auto) 10.1 % (0.0-7.3); Platelet Count 220 K/mm3 (140-440); Red Blood Count 4.42 M/mm3 (3.65-5.03); Red Cell Distribution Width 14.7 % (13.2-15.2)
[2022-07-04] MEDS: SODIUM BICARBONATE 650 MG TAB PO SCH ×3 (08:56→22:40)
[2022-07-04] MEDS: PANTOPRAZOLE 40 MG TAB PO SCH ×2 (08:56→15:33)
[2022-07-04] MEDS: INSULIN NPH/REGULAR 70/30 INJ SUB-Q SCH ×2 (08:58→18:20)
[2022-07-04] MEDS: INSULIN REGULAR, HUMAN 100 UNITS/1 ML SUB-Q SCH ×3 (08:58→18:19)
[2022-07-04] MEDS: HALOPERIDOL 5 MG TAB PO SCH ×2 (09:14→22:42)
[2022-07-04] MEDS: APIXABAN 5 MG TAB PO SCH ×2 (09:14→22:47)
[2022-07-04] MEDS ORDERED: LISINOPRIL 20 MG TAB PO SCH ×2 (10:00)
[2022-07-04] MEDS ORDERED: LEVOTHYROXINE 112 MCG TAB PO SCH (10:00)
[2022-07-04] MEDS ORDERED: NIFEdipine XL 30 MG TAB PO SCH (10:00)
[2022-07-04] MEDS ORDERED: LISINOPRIL 40 MG TAB PO SCH (10:00)
--- NOTE | 2022-07-04 11:21 | Progress Note ---
Assessment and Plan 1. Acute kidney injury: Suspect vasomotor STEFFANIE in the setting of DKA/volume depletion. Renal US negative for hydro/stone. Monitor renal function. Creatinine level is better. Avoid nephrotoxic agents. Meds dosage based on GFR. 2. FEN: Hyperkalemia, improved. Anion-gap Metabolic acidosis, 2/2 DKA, monitor. Replete lytes as needed. Monitor lytes and volume status. 3. DKA: Admits to stop taking meds at home. S/p Insulin drip. Improved. Monitor. 4. Acute DVT involving the external iliac veins bilaterally with thrombus extending distally bilaterally: S/p LE angioplsty Followed by Vascular. 5. Hypertension: Monitor BP. 6. H/o COPD. Subjective: Patient was seen and examined at the bedside. Examination: General appearance: well-developed, obese, appears stated age, no distress HEENT: atraumatic, SANDRA, no icterus Neck: trachea midline Respiratory: wheezing heard Heart: S1S2, regular, no murmur Abdomen: soft, obese, bowel sounds heard, NT Integumentary: no rash on the inspected area Neurologic: alert, able to move extremities Ext: trace Ext and dependent edema Subjective Date of service: 07/04/22 Principal diagnosis: AHRF; DKA; Hyperkalemia; COPD; ? cellulitis; PVD; STEFFANIE; Morbid obesity; ?JACKLYN Objective - Vital Signs Vital signs: Vital Signs - 12hr 07/04/22 07/04/22 07/04/22 09:13 09:15 09:57 Temperature 98.7 F Pulse Rate 94 H Respiratory 22 Rate Blood Pressure 172/88 172/88 O2 Sat by Pulse 89 89 Oximetry - Lab 07/04/22 05:37 07/04/22 05:37 Most recent lab results Calcium 9.0 mg/dL (8.4-10.2) 07/04/22 05:37 Phosphorus 2.10 mg/dL (2.5-4.5) L D 07/02/22 08:12 Magnesium 2.30 mg/dL (1.7-2.3) 07/02/22 08:12 Urine Creatinine 85.4 mg/dL (0.1-20.0) H 06/28/22 08:10 Urine Sodium 10 mmol/L 06/28/22 08:10 Urine Total Protein 49 mg/dL (5-11.8) H 06/28/22 08:10 Medications & Allergies - Medications Allergies/Adverse Reactions: Allergies ciprofloxacin [From Cipro] Allergy (Verified 05/28/22 12:07) Unknown Penicillins Allergy (Verified 05/28/22 12:07) Unknown Home Medications: Home Medications Medication Instructions Recorded Confirmed Last Taken Type Apixaban [Eliquis] 5 mg PO BID 04/13/21 06/28/22 Unknown History Empagliflozin [Jardiance] 25 mg DAILY 04/13/21 06/28/22 Unknown History Fenofibrate 160 mg PO DAILY 04/13/21 06/28/22 Unknown History Glimepiride 4 mg BID 04/13/21 06/28/22 Unknown History Insulin Aspart (Nf) [NovoLOG 100 unit SQ PRN PRN 04/13/21 06/28/22 Unknown History Flexpen] Levothyroxine [Synthroid] 112 mcg PO QAM 04/13/21 06/28/22 Unknown History Lisinopril/Hydrochlorothiazide 1 tab PO QDAY 04/13/21 06/28/22 Unknown History [Zestoretic 20-12.5 mg] [place] Carbonate 600 mg PO QHS 04/13/21 06/28/22 Unknown History [place] Carbonate [Eskalith] 150 mg PO QAM 04/13/21 06/28/22 Unknown History Lurasidone [Latuda] 40 mg QHS 04/13/21 06/28/22 Unknown History Oxybutynin Chloride [Ditropan Xl] 15 mg PO QDAY 04/13/21 06/28/22 Unknown History Semaglutide [Ozempic] 1 unit SQ 1XW 04/13/21 06/28/22 Unknown History Venlafaxine HCl [Venlafaxine HCl 150 mg DAILY 04/13/21 06/28/22 Unknown History ER] buPROPion SR [Wellbutrin SR] 100 mg PO DAILY 04/13/21 06/28/22 Unknown History Doxycycline Hyclate [Doxycycline 100 mg PO Q12HR 7 Days #14 04/14/21 06/28/22 Unknown Rx Hyclate TAB] Active Medications: Generic Name Dose Route Start Last Admin Trade Name Freq PRN Reason Stop Dose Admin Acetaminophen 650 mg 06/28/22 03:09 Acetaminophen 325 Mg Tab PO Q6H PRN Pain MILD(1-3)/Fever >100.5/MURILLO Apixaban 10 mg 07/02/22 22:00 07/04/22 09:14 Apixaban 5 Mg Tab PO 07/09/22 22:01 10 mg Q12HR SHANTHI Administration Protocol Apixaban 5 mg 07/10/22 10:00 Apixaban 5 Mg Tab PO Q12HR SHANTHI Protocol Atorvastatin Calcium 40 mg 07/03/22 22:00 07/03/22 21:50 Atorvastatin 40 Mg Tab PO 40 mg QHS SHANTHI Administration Dextrose 50 ml 06/30/22 09:00 Dextrose 50% In Water (25gm) 50 Ml Syringe IV Q30MIN PRN Hypoglycemia Protocol Divalproex Sodium 250 mg 06/30/22 20:00 07/04/22 09:[address] 250 Mg Tab PO 250 mg Q6H SHANTHI Administration Haloperidol 5 mg 06/30/22 22:00 07/04/22 09:14 Haloperidol 5 Mg Tab PO 5 mg BID SHANTHI Administration Insulin Human Isoph/Insulin Regular 25 unit 07/03/22 18:02 07/04/22 08:58 Insulin Nph/Regular 70/30 Inj SUB-Q 25 unit BIDDIAB SHANTHI Administration Insulin Human Regular 8 units 07/01/22 07:35 07/04/22 08:58 Insulin Regular, Human 100 Units/1 Ml SUB-Q 8 units AC SHANTHI Administration Levothyroxine Sodium 112 mcg 07/04/22 10:00 07/04/22 09:14 Levothyroxine 112 Mcg Tab PO 112 mcg QAM SHANTHI Administration Lisinopril 40 mg 07/04/22 10:00 07/04/22 09:15 Lisinopril 40 Mg Tab PO 40 mg QDAY SHANTHI Administration Morphine Sulfate 2 mg 06/28/22 03:09 06/28/22 18:06 Morphine 2 Mg/1 Ml Inj IV 2 mg Q4H PRN Administration Pain, Moderate (4-6) Nifedipine 30 mg 07/04/22 10:00 07/04/22 09:14 Nifedipine Xl 30 Mg Tab PO 30 mg QDAY SHANTHI Administration Ondansetron HCl 4 mg 06/28/22 03:09 06/28/22 05:44 Ondansetron 4 Mg/2 Ml Inj IV 4 mg Q8H PRN Administration Nausea And Vomiting Pantoprazole Sodium 40 mg 07/03/22 07:30 07/04/22 08:56 Pantoprazole 40 Mg Tab PO 40 mg BIDAC SHANTHI Administration Sodium Bicarbonate 1,300 mg 07/02/22 14:00 07/04/22 08:56 Sodium Bicarbonate 650 Mg Tab PO 1,300 mg TID SHANTHI Administration Sodium Chloride 10 ml 06/28/22 10:00 07/04/22 09:14 Sodium Chloride 0.9% 10 Ml Flush Syringe IV 10 ml BID SHANTHI Administration Sodium Chloride 10 ml 06/28/22 03:09 Sodium Chloride 0.9% 10 Ml Flush Syringe IV PRN PRN LINE FLUSH
[2022-07-04 11:35] LABS: ABG Base Excess -1.7 mmol/L (-2.0-3.0); ABG HCO3 25.1 mmol/L (20.0-26.0); ABG Methemoglobin 0.5 % (0.0-1.5); ABG Oxygen Saturation 92.9 % (95.0-99.0); ABG PCO2 51.9 mm Hg; ABG PH 7.303 pH Units (7.350-7.450); ABG PO2 64.6 mm Hg (80.0-90.0)
--- NOTE | 2022-07-04 13:09 | Progress Note ---
Assessment and Plan Assessment and plan: 06/28: Mentation improved, denied any abdominal pain, no nausea/vomiting. BG and anio gap still elevated. Continue insulin gtt and IVF resuscitation per protocol. Monitor and replace electrolytes as needed, serial Labs ordered. Transition to subQ once gap is closed. BLE ischemia noted, extremities are pu rple and cool to touch, palpable pedal pulses appreciated. Patient reported that she has a history of PE/DVT on Eliquis but she admitted that she has not been complaints with any of her medications for 3 days. 06/29: Anion Gap still greater than 20, and CO2 15 this am. 1amp of bcarb given, continue Insulin gtt and IVF resuscitation per protocol. repeat BMP ordered, will transition to subQ once gap is closed. BLE doppler noted with extensive BLE DVT, patient remains on the heparin gtt. Patient reported she was on PO Eliquis at home and had a IVF filter placed. Vascular Surgery is also following, appreciate recommendations. Hyponatremia improving, appreciate Nephrology's recs. 06/30: Remains stable. Still on the DKA protocol, BG level has been less than 200s for over 24hrs, anion gap still in the 20s this am, probably due to STEFFANIE. Will transition patient to Subq insulin. Patient remains on the heparin gtt. BLE is unchanged, CHRISTOPHER hose applied. Per vascular Surgery, possible interventions/th rombectomy once the patient is stabilized. 07/01: Transition to subQ insulin yesteday. Patient remains stable, tolerating PO intake. Insulin regimen adjusted for hyperglycemia, continue BG check ACHS and IVF hydration for now. Hyponatremia is improving, nephrology is following. Patient remains on heparin gtt per protocol for BLE ischemia. Possible interventions/thrombectomy tomorrow per Vascular Surgery. 07/02: Patient seen and examined at the bedside. Remains stable on RA, VSS. Yesterday was transitioned to SubQ insulin, tolerating PO intake. BLE ischemia is unchanged with palpable pedal pulses. CHRISTOPHER Hose applied per Vascular Surgery. Discussed with vascular surgery today they are going to proceed with bilateral thrombectomy. We will continue on heparin drip at this time. Education pr ovided to the patient on blood sugar control. Compliance discussion also had for 15 minutes counseling. 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 Vascular surgery consulted; appreciate recs Heparin drip discontinued. Initiating Eliquis 10 mg every 12 hours x7 days and then transition to lifelong Eliquis 5 mg every 12 hours. Sutures removed by vascular surgery. PT/OT consulted; pending recs. General surgery consulted for wound care management; pending recs Continue to monitor #Non-insulin dependent type II diabetes mellitus with hyperglycemia - hemoglobin A1c: Unknown - home regimen: Jardiance 25 mg daily, glimepiride 4 mg twice daily, Latuda 40 mg nightly, Ozempic 1 unit subcutaneous weekly - current regimen: NPH 25 units twice daily, regular insulin 8 units with meals, moderate SSI - blood glucose goal 140-180 while inpatient - continue to monitor #Hypertension #Hyperlipidemia - home medications: Lisinopril/hydrochlorothiazide 20-1.5 mg daily, fenofibrate 160 mg daily - current medications: Fenofibrate 160 mg daily, lisinopril 40 mg daily, nifedipine 30 mg - SBP goal <160 and DBP goal <90 while inpatient - continue to monitor #Hypothyroidism Continue home levothyroxine 112 mcg daily #H/O COPD #Hyponatremiaimproved #Bipolar Disorder Home medications: [place] 150 mg every morning, 600 mg nightly, venlafaxine 150 mg daily Consulting psychiatry about current dosing; pending recs #Medication noncompliance #Tobacco dependence #Tobacco/Smoking cessation counseling - Counseled patient about the importance of smoking cessation and the possible sequelae as a result of continued tobacco consumption. The patient expresses understanding. -Time: +15 mins #Morbid obesity #Weight loss counseling #Exercise counseling - BMI 52.8 - Counseled patient on the importance of weight loss, incorporating exercise, and dietary changes (lean meats, fresh fruits and vegetables, and water intake). Patient expresses understanding. - Time: +15 min Resolved diagnoses: DKA Acute metabolic encephalopathy Leukocytosis Hyperkalemia STEFFANIE secondary to vasomotor nephropathy #Advance Care Planning - Disease education data, care plan, diagnoses, and prognosis were discussed with patient at the bedside. Patient is a FULL code. Patient acknowledged understanding and agreed with current care plan. Disposition Plan: Continue medical management Total Time Spent with Patient (Minutes): 45 minutes History Interval history: No acute events overnight. Hospitalist Physical - Constitutional Vitals: Temp Pulse Resp BP Pulse Ox 98.7 F 94 H 22 172/88 89 07/04/22 09:13 07/04/22 09:13 07/04/22 09:13 07/04/22 09:15 07/04/22 09:57 General appearance: Present: no acute distress, well-nourished, obese - EENT Eyes: Present: PERRL, EOM intact ENT: hearing intact, clear oral mucosa, dentition normal - Neck Neck: Present: supple, normal ROM - Respiratory Respiratory effort: normal Respiratory: bilateral: diminished (3 L nasal cannula) - Cardiovascular Rhythm: regular Heart Sounds: Present: S1 & S2 - Extremities Extremities: no ischemia, pulses intact, pulses symmetrical, No edema, normal temperature, normal color Extremity abnormal: ulceration (Bilateral calf ulcerations), other (Decreased range of motion after bilateral thrombectomy of bilateral lower DVTs) Peripheral Pulses: within normal limits - Abdominal General gastrointestinal: soft, non-tender, non-distended, normal bowel sounds - Integumentary Integumentary: Present: clear, warm, dry - Psychiatric Psychiatric: depressed, other (Decreased cooperation in regards to medical management) - Neurologic Neurologic: CNII-XII intact - Allied Health Allied health notes reviewed: nursing HEART Score - HEART Score Troponin: Troponin T 0.080 ng/mL (0.00-0.029) H 06/27/22 20:48 Results - Labs CBC & Chem 7: 07/04/22 05:37 07/04/22 05:37 Labs: Laboratory Last Values WBC 10.0 K/mm3 (4.5-11.0) 07/04/22 05:37 RBC 4.42 M/mm3 (3.65-5.03) 07/04/22 05:37 Hgb 13.5 gm/dl (10.1-14.3) 07/04/22 05:37 Hct 40.9 % (30.3-42.9) 07/04/22 05:37 MCV 92 fl (79-97) 07/04/22 05:37 MCH 31 pg (28-32) 07/04/22 05:37 MCHC 33 % (30-34) 07/04/22 05:37 RDW 14.7 % (13.2-15.2) 07/04/22 05:37 Plt Count 220 K/mm3 (140-440) 07/04/22 05:37 Lymph % (Auto) 8.4 % (13.4-35.0) L 07/04/22 05:37 [place] % (Auto) 10.1 % (0.0-7.3) H 07/04/22 05:37 Eos % (Auto) 0.4 % (0.0-4.3) 07/04/22 05:37 Baso % (Auto) 0.5 % (0.0-1.8) 07/04/22 05:37 Lymph # (Auto) 0.8 K/mm3 (1.2-5.4) L 07/04/22 05:37 [place] # (Auto) 1.0 K/mm3 (0.0-0.8) H 07/04/22 05:37 Eos # (Auto) 0.0 K/mm3 (0.0-0.4) 07/04/22 05:37 Baso # (Auto) 0.0 K/mm3 (0.0-0.1) 07/04/22 05:37 Seg Neutrophils % 80.6 % (40.0-70.0) H 07/04/22 05:37 Seg Neutrophils # 8.0 K/mm3 (1.8-7.7) H 07/04/22 05:37 PT 17.3 Sec. (12.2-14.9) H 07/02/22 20:28 INR 1.26 (0.87-1.13) H 07/02/22 20:28 APTT 24.1 Sec. (24.2-36.6) L 07/02/22 20:28 Heparin Anti-Xa Level 0.21 U.I./ml (0.3-0.7) L 07/02/22 08:12 ABG pH 7.303 pH Units (7.350-7.450) L 07/04/22 11:15 ABG pCO2 51.9 mm Hg 07/04/22 11:15 ABG pO2 64.6 mm Hg (80.0-90.0) L 07/04/22 11:15 ABG HCO3 25.1 mmol/L (20.0-26.0) 07/04/22 11:15 ABG O2 Saturation 92.9 % (95.0-99.0) L 07/04/22 11:15 ABG O2 Content 15.2 (0.0-44) 07/04/22 11:15 ABG Base Excess -1.7 mmol/L (-2.0-3.0) 07/04/22 11:15 ABG Hemoglobin 11.9 gm/dl (12.0-16.0) L 07/04/22 11:15 ABG Carboxyhemoglobin 2.0 % (0.0-5.0) 07/04/22 11:15 ABG Methemoglobin 0.5 % (0.0-1.5) 07/04/22 11:15 Oxyhemoglobin 90.6 % (95.0-99.0) L 07/04/22 11:15 FiO2 40 % 07/04/22 11:15 Sodium 138 mmol/L (137-145) 07/04/22 05:37 Potassium 4.5 mmol/L (3.6-5.0) 07/04/22 05:37 Chloride 103.8 mmol/L (98-107) 07/04/22 05:37 Carbon Dioxide 22 mmol/L (22-30) 07/04/22 05:37 Anion Gap 17 mmol/L 07/04/22 05:37 BUN 14 mg/dL (7-17) 07/04/22 05:37 Creatinine 1.0 mg/dL (0.6-1.2) 07/04/22 05:37 Estimated GFR 58 ml/min 07/04/22 05:37 BUN/Creatinine Ratio 14 % 07/04/22 05:37 Glucose 217 mg/dL (65-100) H 07/04/22 05:37 POC Glucose 267 mg/dL (70-105) H 07/04/22 11:52 Hemoglobin A1c 9.7 % (4-6) H 06/28/22 20:31 Lactic Acid 1.90 mmol/L (0.7-2.0) 06/29/22 10:47 Calcium 9.0 mg/dL (8.4-10.2) 07/04/22 05:37 Phosphorus 2.10 mg/dL (2.5-4.5) L D 07/02/22 08:12 Magnesium 2.30 mg/dL (1.7-2.3) 07/02/22 08:12 Total Bilirubin 0.90 mg/dL (0.1-1.2) 06/27/22 20:48 AST 50 units/L (5-40) H 06/27/22 20:48 ALT 28 units/L (7-56) 06/27/22 20:48 Alkaline Phosphatase 97 units/L (35-129) 06/27/22 20:48 Troponin T 0.080 ng/mL (0.00-0.029) H 06/27/22 20:48 NT-Pro-B Natriuret Pep 4137 pg/mL (0-900) H 06/27/22 20:48 Total Protein 7.0 g/dL (6.3-8.2) 06/27/22 20:48 Albumin 3.1 g/dL (3.9-5) L 06/27/22 20:48 Albumin/Globulin Ratio 0.8 % 06/27/22 20:48 Triglycerides 349 mg/dL (2-149) H 06/27/22 20:48 Cholesterol 156 mg/dL (50-199) 06/27/22 20:48 LDL Cholesterol Direct 37 mg/dL (50-130) L 06/27/22 20:48 HDL Cholesterol 38 mg/dL (40-59) L 06/27/22 20:48 Cholesterol/HDL Ratio 4.10 % 06/27/22 20:48 Procalcitonin 2.51 ng/mL (<0.15) 06/29/22 10:47 PTH Intact 382.4 pg/mL (15-65) H 06/29/22 04:21 Urine Creatinine 85.4 mg/dL (0.1-20.0) H 06/28/22 08:10 Protein/Creatinin Ratio 0.57 06/28/22 08:10 Urine Sodium 10 mmol/L 06/28/22 08:10 Urine Total Protein 49 mg/dL (5-11.8) H 06/28/22 08:10 Tian/IV: Voiding Method External Female Catheter Active Medications - Current Medications Current Medications: Generic Name Dose Route Start Last Admin Trade Name Freq PRN Reason Stop Dose Admin Acetaminophen 650 mg 06/28/22 03:09 Acetaminophen 325 Mg Tab PO Q6H PRN Pain MILD(1-3)/Fever >100.5/MURILLO Apixaban 10 mg 07/02/22 22:00 07/04/22 09:14 Apixaban 5 Mg Tab PO 07/09/22 22:01 10 mg Q12HR SHANTHI Administration Protocol Apixaban 5 mg 07/10/22 10:00 Apixaban 5 Mg Tab PO Q12HR SHANTHI Protocol Atorvastatin Calcium 40 mg 07/03/22 22:00 07/03/22 21:50 Atorvastatin 40 Mg Tab PO 40 mg QHS SHANTHI Administration Dextrose 50 ml 06/30/22 09:00 Dextrose 50% In Water (25gm) 50 Ml Syringe IV Q30MIN PRN Hypoglycemia Protocol Divalproex Sodium 250 mg 06/30/22 20:00 07/04/22 09:[address] 250 Mg Tab PO 250 mg Q6H SHANTHI Administration Haloperidol 5 mg 06/30/22 22:00 07/04/22 09:14 Haloperidol 5 Mg Tab PO 5 mg BID SHANTHI Administration Insulin Human Isoph/Insulin Regular 25 unit 07/03/22 18:02 07/04/22 08:58 Insulin Nph/Regular 70/30 Inj SUB-Q 25 unit BIDDIAB SHANTHI Administration Insulin Human Regular 8 units 07/01/22 07:35 07/04/22 08:58 Insulin Regular, Human 100 Units/1 Ml SUB-Q 8 units AC SHANTHI Administration Levothyroxine Sodium 112 mcg 07/04/22 10:00 07/04/22 09:14 Levothyroxine 112 Mcg Tab PO 112 mcg QAM SHANTHI Administration Lisinopril 40 mg 07/04/22 10:00 07/04/22 09:15 Lisinopril 40 Mg Tab PO 40 mg QDAY SHANTHI Administration Morphine Sulfate 2 mg 06/28/22 03:09 06/28/22 18:06 Morphine 2 Mg/1 Ml Inj IV 2 mg Q4H PRN Administration Pain, Moderate (4-6) Nifedipine 30 mg 07/04/22 10:00 07/04/22 09:14 Nifedipine Xl 30 Mg Tab PO 30 mg QDAY SHANTHI Administration Ondansetron HCl 4 mg 06/28/22 03:09 06/28/22 05:44 Ondansetron 4 Mg/2 Ml Inj IV 4 mg Q8H PRN Administration Nausea And Vomiting Pantoprazole Sodium 40 mg 07/03/22 07:30 07/04/22 08:56 Pantoprazole 40 Mg Tab PO 40 mg BIDAC SHANTHI Administration Sodium Bicarbonate 1,300 mg 07/02/22 14:00 07/04/22 08:56 Sodium Bicarbonate 650 Mg Tab PO 1,300 mg TID SHANTHI Administration Sodium Chloride 10 ml 06/28/22 10:00 07/04/22 09:14 Sodium Chloride 0.9% 10 Ml Flush Syringe IV 10 ml BID SHANTHI Administration Sodium Chloride 10 ml 06/28/22 03:09 Sodium Chloride 0.9% 10 Ml Flush Syringe IV PRN PRN LINE FLUSH Nutrition/Malnutrition Assess - Dietary Evaluation Nutrition/Malnutrition Findings: Nutrition Notes Start: 06/28/22 11:39 Freq: Status: Active Protocol: Document 07/02/22 13:18 CM (Rec: 07/02/22 13:24 CM [id number]) Co-Sign 07/02/22 13:18 WW Nutrition Notes Initial or Follow up Brief Note Current Diagnosis COPD,Diabetes,Hypertension Other Pertinent Diagnosis DKA Current Diet NPO after Midnight Labs/Tests 07/02: Na 129 Cl 95.7 CO2 17 BUN 24 Glu 275 Pertinent Medications 07/02: Humulin Height 5 ft 4 in Weight 139.6 kg [place] Body Weight (kg) 54.54 BMI 52.8 Weight Status Morbidly Obese Subjective/Other Information RD follow-up per protocol. 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 Lunch and dinner 07/01 - 100% per ADL notes. Physical assessment reviewed. Percent of energy/protein needs met: Pt is NPO at this time. When feasible, initiate cardiac/consistent carbohydrate diet - 1977kcal / 86g PRO q day GI Symptoms None Food Allergy No Skin Integrity/Comment Delroy 15 - Bruises Current % PO Good (75-100%) #1 Nutrition Diagnosis Overweight/obesity Diagnosis Progress(for reassessment Continues documentation) Nutrition Intervention Change Diet Order: Advance pt to cardiac/ consistent carbohydrate diet as feasible. Goal #1 Pt to advance to cardiac/ consistent carbohydrate diet Goal #2 Pt to consume >75% of estimated energy/protein needs through recommended diet order Follow-Up By: 07/09/22 Additional Comments Monitor need for diet education, nutrition-related labs, %PO intake, and GI symptoms.
[2022-07-04] MEDS ORDERED: FUROSEMIDE 40 MG/4 ML INJ IV NR (14:30)
--- NOTE | 2022-07-04 14:31 | Consultation ---
History of Present Illness Consult date: 07/04/22 Chief complaint: wounds legs - History of present illness History of present illness: 52-year-old female with a history of morbid obesity, bilateral lower extremity venous insufficiency who presented to the emergency room with multiple days of feeling weak. The patient is a poor historian and all the history is obtained from the chart. Patient was found to be in DKA and admitted to the hospital. Patient has a history of multiple superficial venous procedures as an outpatient by vascular surgery. She also has a history of an IVC filter. 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 During this admission, she underwent thrombectomy. Patient has superficial wounds of bilateral lower extremities. She is unclear as to how long they were present. Surgery is consulted for evaluation. Past History Past Medical History: COPD, diabetes, hypertension, other (Bilateral lower extremity venous insufficiency, morbid obesity) Past Surgical History: Other (Lower extremity thrombectomy) Social history: smoking ( Current Every Day Smoker) Family history: no significant family history Medications and Allergies Allergies Allergy/AdvReac Type Severity Reaction Status Date / Time ciprofloxacin [From Cipro] Allergy Unknown Verified 05/28/22 12:07 Penicillins Allergy Unknown Verified 05/28/22 12:07 Home Medications Medication Instructions Recorded Confirmed Last Taken Type Apixaban [Eliquis] 5 mg PO BID 04/13/21 06/28/22 Unknown History Empagliflozin [Jardiance] 25 mg DAILY 04/13/21 06/28/22 Unknown History Fenofibrate 160 mg PO DAILY 04/13/21 06/28/22 Unknown History Glimepiride 4 mg BID 04/13/21 06/28/22 Unknown History Insulin Aspart (Nf) [NovoLOG 100 unit SQ PRN PRN 04/13/21 06/28/22 Unknown History Flexpen] Levothyroxine [Synthroid] 112 mcg PO QAM 04/13/21 06/28/22 Unknown History Lisinopril/Hydrochlorothiazide 1 tab PO QDAY 04/13/21 06/28/22 Unknown History [Zestoretic 20-12.5 mg] [place] Carbonate 600 mg PO QHS 04/13/21 06/28/22 Unknown History [place] Carbonate [Eskalith] 150 mg PO QAM 04/13/21 06/28/22 Unknown History Lurasidone [Latuda] 40 mg QHS 04/13/21 06/28/22 Unknown History Oxybutynin Chloride [Ditropan Xl] 15 mg PO QDAY 04/13/21 06/28/22 Unknown History Semaglutide [Ozempic] 1 unit SQ 1XW 04/13/21 06/28/22 Unknown History Venlafaxine HCl [Venlafaxine HCl 150 mg DAILY 04/13/21 06/28/22 Unknown History ER] buPROPion SR [Wellbutrin SR] 100 mg PO DAILY 04/13/21 06/28/22 Unknown History Doxycycline Hyclate [Doxycycline 100 mg PO Q12HR 7 Days #14 04/14/21 06/28/22 Unknown Rx Hyclate TAB] Active Meds: Active Medications Acetaminophen (Acetaminophen 325 Mg Tab) 650 mg PO Q6H PRN PRN Reason: Pain MILD(1-3)/Fever >100.5/MURILLO Apixaban (Apixaban 5 Mg Tab) 10 mg PO Q12HR SHANTHI; Protocol Stop: 07/09/22 22:01 Last Admin: 07/04/22 09:14 Dose: 10 mg Apixaban (Apixaban 5 Mg Tab) 5 mg PO Q12HR SHANTHI; Protocol Atorvastatin Calcium (Atorvastatin 40 Mg Tab) 40 mg PO QHS SHANTHI Last Admin: 07/03/22 21:50 Dose: 40 mg Dextrose (Dextrose 50% In Water (25gm) 50 Ml Syringe) 50 ml IV Q30MIN PRN; Pr otocol PRN Reason: Hypoglycemia Divalproex Sodium (Divalproex Dr 250 Mg Tab) 250 mg PO Q6H SHANTHI Last Admin: 07/04/22 09:17 Dose: 250 mg Furosemide (Furosemide 40 Mg/4 Ml Inj) 40 mg IV ONCE@1430 NR Stop: 07/04/22 19:00 Haloperidol (Haloperidol 5 Mg Tab) 5 mg PO BID [facility] Last Admin: 07/04/22 09:14 Dose: 5 mg Insulin Human Isoph/Insulin Regular (Insulin Nph/Regular 70/30 Inj) 25 unit SUB-Q BIDDIAB SHANTHI Last Admin: 07/04/22 08:58 Dose: 25 unit Insulin Human Regular (Insulin Regular, Human 100 Units/1 Ml) 8 units SUB-Q AC [facility] Last Admin: 07/04/22 08:58 Dose: 8 units Levothyroxine Sodium (Levothyroxine 112 Mcg Tab) 112 mcg PO QAM [facility] Last Admin: 07/04/22 09:14 Dose: 112 mcg Lisinopril (Lisinopril 40 Mg Tab) 40 mg PO QDAY [facility] Last Admin: 07/04/22 09:15 Dose: 40 mg Morphine Sulfate (Morphine 2 Mg/1 Ml Inj) 2 mg IV Q4H PRN PRN Reason: Pain, Moderate (4-6) Last Admin: 06/28/22 18:06 Dose: 2 mg Nicotine (Nicotine 21 Mg/24 Hr Patch) 21 mg TD QDAY [facility] Nifedipine (Nifedipine Xl 30 Mg Tab) 30 mg PO QDAY [facility] Last Admin: 07/04/22 09:14 Dose: 30 mg Ondansetron HCl (Ondansetron 4 Mg/2 Ml Inj) 4 mg IV Q8H PRN PRN Reason: Nausea And Vomiting Last Admin: 06/28/22 05:44 Dose: 4 mg Pantoprazole Sodium (Pantoprazole 40 Mg Tab) 40 mg PO BIDAC [facility] Last Admin: 07/04/22 08:56 Dose: 40 mg Sodium Bicarbonate (Sodium Bicarbonate 650 Mg Tab) 1,300 mg PO TID [facility] Last Admin: 07/04/22 08:56 Dose: 1,300 mg Sodium Chloride (Sodium Chloride 0.9% 10 Ml Flush Syringe) 10 ml IV BID [facility] Last Admin: 07/04/22 09:14 Dose: 10 ml Sodium Chloride (Sodium Chloride 0.9% 10 Ml Flush Syringe) 10 ml IV PRN PRN PRN Reason: LINE FLUSH Review of Systems All systems: negative (10 point ROS performed and negative except for that listed in HPI) Exam Vital Signs Pulse Resp BP Pulse Ox 133 H 35 H 96/68 98 06/27/22 20:07 06/27/22 20:07 06/27/22 20:07 06/27/22 20:07 Narrative exam: Gen.: Awake, alert, oriented x3. No apparent distress ENT: Trachea midline. No lymphadenopathy. No scleral icterus or conjunctival pallor CV: S1, S2 present Respiratory: No audible wheezes Extremities: b/l LE edema. Partial thickness wounds to b/l anterior lower leg, clean with red base and mild drainage. Periwound skin unremarkable. Dermagran applied to the wounds and wrapped with kerlix. Results - Labs 07/04/22 05:37 07/04/22 05:37 Abnormal lab results 07/03/22 07/03/22 07/03/22 Range/Units 11:30 16:23 22:01 Lymph % (Auto) (13.4-35.0) % [place] % (Auto) (0.0-7.3) % Lymph # (Auto) (1.2-5.4) K/mm3 [place] # (Auto) (0.0-0.8) K/mm3 Seg Neutrophils % (40.0-70.0) % Seg Neutrophils # (1.8-7.7) K/mm3 ABG pH (7.350-7.450) pH Units ABG pO2 (80.0-90.0) mm Hg ABG O2 Saturation (95.0-99.0) % ABG Hemoglobin (12.0-16.0) gm/dl Oxyhemoglobin (95.0-99.0) % Glucose (65-100) mg/dL POC Glucose 292 H 255 H 281 H (70-105) mg/dL 07/04/22 07/04/22 07/04/22 Range/Units 05:37 05:37 07:40 Lymph % (Auto) 8.4 L (13.4-35.0) % [place] % (Auto) 10.1 H (0.0-7.3) % Lymph # (Auto) 0.8 L (1.2-5.4) K/mm3 [place] # (Auto) 1.0 H (0.0-0.8) K/mm3 Seg Neutrophils % 80.6 H (40.0-70.0) % Seg Neutrophils # 8.0 H (1.8-7.7) K/mm3 ABG pH (7.350-7.450) pH Units ABG pO2 (80.0-90.0) mm Hg ABG O2 Saturation (95.0-99.0) % ABG Hemoglobin (12.0-16.0) gm/dl Oxyhemoglobin (95.0-99.0) % Glucose 217 H (65-100) mg/dL POC Glucose 211 H (70-105) mg/dL 07/04/22 07/04/22 Range/Units 11:15 11:52 Lymph % (Auto) (13.4-35.0) % [place] % (Auto) (0.0-7.3) % Lymph # (Auto) (1.2-5.4) K/mm3 [place] # (Auto) (0.0-0.8) K/mm3 Seg Neutrophils % (40.0-70.0) % Seg Neutrophils # (1.8-7.7) K/mm3 ABG pH 7.303 L (7.350-7.450) pH Units ABG pO2 64.6 L (80.0-90.0) mm Hg ABG O2 Saturation 92.9 L (95.0-99.0) % ABG Hemoglobin 11.9 L (12.0-16.0) gm/dl Oxyhemoglobin 90.6 L (95.0-99.0) % Glucose (65-100) mg/dL POC Glucose 267 H (70-105) mg/dL Diabetes panel 07/04/22 Range/Units 05:37 Sodium 138 (137-145) mmol/L Potassium 4.5 (3.6-5.0) mmol/L Chloride 103.8 (98-107) mmol/L Carbon Dioxide 22 (22-30) mmol/L BUN 14 (7-17) mg/dL Creatinine 1.0 (0.6-1.2) mg/dL Glucose 217 H (65-100) mg/dL Calcium 9.0 (8.4-10.2) mg/dL Calcium panel 07/04/22 Range/Units 05:37 Calcium 9.0 (8.4-10.2) mg/dL Pituitary panel 07/04/22 Range/Units 05:37 Sodium 138 (137-145) mmol/L Potassium 4.5 (3.6-5.0) mmol/L Chloride 103.8 (98-107) mmol/L Carbon Dioxide 22 (22-30) mmol/L BUN 14 (7-17) mg/dL Creatinine 1.0 (0.6-1.2) mg/dL Glucose 217 H (65-100) mg/dL Calcium 9.0 (8.4-10.2) mg/dL Adrenal panel 07/04/22 Range/Units 05:37 Sodium 138 (137-145) mmol/L Potassium 4.5 (3.6-5.0) mmol/L Chloride 103.8 (98-107) mmol/L Carbon Dioxide 22 (22-30) mmol/L BUN 14 (7-17) mg/dL Creatinine 1.0 (0.6-1.2) mg/dL Glucose 217 H (65-100) mg/dL Calcium 9.0 (8.4-10.2) mg/dL Assessment and Plan 52-year-old female with bilateral lower extremity wounds secondary to venous insufficiency Plan: 1. dermagran to wounds - change every other day 2. Compression stockings 3. HHC 4. outpatient follow up in wound clinic Thank you for this consultation. Please call with any questions or concerns.
[2022-07-04] MEDS: NICOTINE 21 MG/24 HR PATCH TD SCH (14:53)
--- NOTE | 2022-07-04 17:03 | Progress Note ---
Assessment and Plan 52-year-old -[place] female with known history of diabetes mellitus, hypertension, COPD presenting in the emergency room today complaining of shortness of breath. She has also had occasional palpitations. Patient has history of DVT and PE. Patient is on Eliquis at home. Patient denies any fever or chills, no headache or dizziness, no diaphoresis. Patient has had some nausea but no vomiting, no abdominal pain and no diarrhea. Patient has history of smoking 1 pack x 30 years. Counseled to stop smoking. Denies alcohol or drug abuse. Worked in [employer]. Not . No children. Allergic to CIPRO and Ampicillin. Work-up in the emergency room ,Significant findings on the labs includes potassium level of 6.4, sodium level of 121, anion gap of 40, BUN of 54 and creatinine of 2.5. Blood glucose was 562. Chest x-ray shows no acute findings. Patient being admitted for diabetic ketoacidosis. She has been started on IV fluid and insulin drip. Patient improved. transfered to medical floor. Patient is Morbidly Obese, sleeping. Patient is on 6L O2. Patients O2 saturation 98%. No acute respiratory distress. Patient afebrile. No leukocytosis. Blood pressure 172/88, Pulse 68, Respirations 22. Chest xray obtained 06/27/22 reported No acute findings. Patient is on I/V Heparin and famotidine. - Patient Problems (1) Cardiac arrhythmia Current Visit: Yes Status: Acute Plan to address problem: Management as per cardiology. (2) Acute metabolic encephalopathy Current Visit: No Status: Acute Plan to address problem: Management as per primary care. (3) COPD (chronic obstructive pulmonary disease) Current Visit: No Status: Acute Plan to address problem: Recommend Xopenex and atrovent aerosol treatments q 8 hours. Patient is on I/V heparin. Continue famotidine. (4) DKA (diabetic ketoacidoses) Current Visit: No Status: Acute Plan to address problem: Improving. Anion gap 17. Management as per primary care. (5) Hypertension Current Visit: No Status: Acute Plan to address problem: Management as per primary care. (6) Renal insufficiency Current Visit: No Status: Acute Plan to address problem: Management as per nephrology. (7) Morbid obesity with BMI of 50.0-59.9, adult Current Visit: Yes Status: Acute Plan to address problem: Recommend to lose weight. Recommend Sleep study as out patient. (8) History of deep venous thrombosis or pulmonary embolus Current Visit: Yes Status: Acute Plan to address problem: Patient was on Eliquis at home. Presently she is on I/V Heparin. (9) Nicotine dependence Current Visit: Yes Status: Acute Plan to address problem: Counseled to stop smokng. Recommend Nicoderm Patch. Subjective Date of service: 07/04/22 Principal diagnosis: AHRF; DKA; Hyperkalemia; COPD; ? cellulitis; PVD; STEFFANIE; Morbid obesity; ?JACKLYN Interval history: 52-year-old -[place] female with known history of diabetes mellitus, hypertension, COPD presenting in the emergency room today complaining of shortness of breath. She has also had occasional palpitations. Patient has history of DVT and PE. Patient is on Eliquis at home. Patient denies any fever or chills, no headache or dizziness, no diaphoresis. Patient has had some nausea but no vomiting, no abdominal pain and no diarrhea. Patient has history of smoking 1 pack x 30 years. Counseled to stop smoking. Denies alcohol or drug abuse. Worked in [employer]. Not . No children. Allergic to CIPRO and Ampicillin. Work-up in the emergency room ,Significant findings on the labs includes potassium level of 6.4, sodium level of 121, anion gap of 40, BUN of 54 and creatinine of 2.5. Blood glucose was 562. Chest x-ray shows no acute findings. Patient being admitted for diabetic ketoacidosis. She has been started on IV fluid and insulin drip. Patient improved. transfered to medical floor Patient is Morbidly Obese, sleeping. Patient is on 6L O2. Patients O2 saturation 98%. No acute respiratory distress. Patient afebrile. No leukocytosis. Blood pressure 172/88, Pulse 68, Respirations 22. Chest xray obtained 06/27/22 reported No acute findings. Patient is on I/V Heparin and famotidine. Objective Vital Signs - 12hr 07/04/22 07/04/22 07/04/22 09:13 09:15 09:57 Temperature 98.7 F Pulse Rate 94 H Respiratory 22 Rate Blood Pressure 172/88 172/88 O2 Sat by Pulse 89 89 Oximetry Constitutional: no acute distress, asleep Eyes: non-icteric ENT: oropharynx moist Neck: supple, no lymphadenopathy, no JVD, other (large circumference) Effort: mildly labored Ascultation: Bilateral: diminished breath sounds Percussion: Bilateral: not dull Cardiovascular: regular rate and rhythm Gastrointestinal: normoactive bowel sounds, non-tender, tender, non-distended Integumentary: rash (shins), other (erythema to shins) Extremities: no cyanosis, pink and warm, no ischemia or petechiae, edema (trace to 1+) Neurologic: non-focal exam (grossly), pupils equal and round, other (pt sleeping) Psychiatric: other (pt sleeping) CBC and BMP: 07/12/22 04:18 07/13/22 04:03 ABG, PT/INR, D-dimer: ABG ABG pH 7.303 pH Units (7.350-7.450) L 07/04/22 11:15 ABG pCO2 51.9 mm Hg 07/04/22 11:15 ABG pO2 64.6 mm Hg (80.0-90.0) L 07/04/22 11:15 ABG O2 Saturation 92.9 % (95.0-99.0) L 07/04/22 11:15 PT/INR, D-dimer PT 17.3 Sec. (12.2-14.9) H 07/02/22 20:28 INR 1.26 (0.87-1.13) H 07/02/22 20:28 Abnormal lab findings: Abnormal Labs 06/27/22 06/27/22 06/27/22 20:48 20:48 23:56 WBC 18.7 H RBC Hgb 15.1 H Hct 47.1 H Plt Count Lymph % (Auto) 6.3 L Whitley % (Auto) Lymph # (Auto) Whitley # (Auto) 0.9 H Seg Neutrophils % 88.6 H Seg Neutrophils # 16.5 H PT INR APTT Heparin Anti-Xa Level ABG pH ABG pO2 ABG O2 Saturation ABG Hemoglobin Oxyhemoglobin Sodium 123 L 121 L Potassium 6.9 H* 6.4 H* Chloride 82.4 L 79.7 L Carbon Dioxide 7 L* 8 L* BUN 50 H 54 H Creatinine 2.2 H 2.5 H Glucose 578 H* 562 H* POC Glucose Hemoglobin A1c Calcium Phosphorus 10.40 H Magnesium 2.70 H 2.60 H AST 50 H Troponin T 0.080 H NT-Pro-B Natriuret Pep 4137 H Albumin 3.1 L Triglycerides 349 H LDL Cholesterol Direct 37 L HDL Cholesterol 38 L PTH Intact Urine Creatinine Urine Total Protein 06/28/22 06/28/22 06/28/22 01:45 03:17 03:35 WBC RBC Hgb Hct Plt Count Lymph % (Auto) Whitley % (Auto) Lymph # (Auto) [place] # (Auto) Seg Neutrophils % Seg Neutrophils # PT INR APTT Heparin Anti-Xa Level ABG pH ABG pO2 ABG O2 Saturation ABG Hemoglobin Oxyhemoglobin Sodium 120 L 121 L Potassium 6.2 H* 5.4 H Chloride 79.1 L 84.7 L Carbon Dioxide 7 L* 7 L* BUN 55 H 57 H Creatinine 2.6 H 2.6 H Glucose 551 H* 486 H POC Glucose 568 H Hemoglobin A1c Calcium 8.1 L 7.7 L Phosphorus Magnesium AST Troponin T NT-Pro-B Natriuret Pep Albumin Triglycerides LDL Cholesterol Direct HDL Cholesterol PTH Intact Urine Creatinine Urine Total Protein 06/28/22 06/28/22 06/28/22 03:35 04:05 05:13 WBC RBC Hgb Hct Plt Count Lymph % (Auto) Whitley % (Auto) Lymph # (Auto) [place] # (Auto) Seg Neutrophils % Seg Neutrophils # PT INR APTT Heparin Anti-Xa Level ABG pH ABG pO2 ABG O2 Saturation ABG Hemoglobin Oxyhemoglobin Sodium Potassium Chloride Carbon Dioxide BUN Creatinine Glucose POC Glucose 508 H 443 H Hemoglobin A1c Calcium Phosphorus 9.20 H Magnesium AST Troponin T NT-Pro-B Natriuret Pep Albumin Triglycerides LDL Cholesterol Direct HDL Cholesterol PTH Intact Urine Creatinine Urine Total Protein 06/28/22 06/28/22 06/28/22 05:40 06:30 07:39 WBC RBC Hgb Hct Plt Count Lymph % (Auto) [place] % (Auto) Lymph # (Auto) [place] # (Auto) Seg Neutrophils % Seg Neutrophils # PT INR APTT Heparin Anti-Xa Level ABG pH ABG pO2 ABG O2 Saturation ABG Hemoglobin Oxyhemoglobin Sodium 124 L Potassium 5.1 H Chloride 86.5 L Carbon Dioxide 13 L BUN 59 H Creatinine 2.6 H Glucose 396 H POC Glucose 419 H 377 H Hemoglobin A1c Calcium 8.0 L Phosphorus Magnesium AST Troponin T NT-Pro-B Natriuret Pep Albumin Triglycerides LDL Cholesterol Direct HDL Cholesterol PTH Intact Urine Creatinine Urine Total Protein 06/28/22 06/28/22 06/28/22 08:10 08:18 09:32 WBC RBC Hgb Hct Plt Count Lymph % (Auto) [place] % (Auto) Lymph # (Auto) [place] # (Auto) Seg Neutrophils % Seg Neutrophils # PT INR APTT Heparin Anti-Xa Level ABG pH ABG pO2 ABG O2 Saturation ABG Hemoglobin Oxyhemoglobin Sodium Potassium Chloride Carbon Dioxide BUN Creatinine Glucose POC Glucose 390 H 347 H Hemoglobin A1c Calcium Phosphorus Magnesium AST Troponin T NT-Pro-B Natriuret Pep Albumin Triglycerides LDL Cholesterol Direct HDL Cholesterol PTH Intact Urine Creatinine 85.4 H Urine Total Protein 49 H 06/28/22 06/28/22 06/28/22 10:46 11:40 12:40 WBC RBC Hgb Hct Plt Count Lymph % (Auto) Whitley % (Auto) Lymph # (Auto) [place] # (Auto) Seg Neutrophils % Seg Neutrophils # PT INR APTT Heparin Anti-Xa Level ABG pH ABG pO2 ABG O2 Saturation ABG Hemoglobin Oxyhemoglobin Sodium Potassium Chloride Carbon Dioxide BUN Creatinine Glucose POC Glucose 313 H 274 H 258 H Hemoglobin A1c Calcium Phosphorus Magnesium AST Troponin T NT-Pro-B Natriuret Pep Albumin Triglycerides LDL Cholesterol Direct HDL Cholesterol PTH Intact Urine Creatinine Urine Total Protein 06/28/22 06/28/22 06/28/22 13:38 14:13 14:13 WBC 19.7 H RBC 5.33 H Hgb 16.2 H Hct 49.4 H Plt Count Lymph % (Auto) [place] % (Auto) Lymph # (Auto) [place] # (Auto) Seg Neutrophils % Seg Neutrophils # PT INR APTT Heparin Anti-Xa Level ABG pH ABG pO2 ABG O2 Saturation ABG Hemoglobin Oxyhemoglobin Sodium 125 L Potassium 5.4 H Chloride 87.6 L Carbon Dioxide 18 L BUN 58 H Creatinine 2.5 H Glucose 199 H POC Glucose 205 H Hemoglobin A1c Calcium Phosphorus 6.90 H D Magnesium AST Troponin T NT-Pro-B Natriuret Pep Albumin Triglycerides LDL Cholesterol Direct HDL Cholesterol PTH Intact Urine Creatinine Urine Total Protein 06/28/22 06/28/22 06/28/22 14:56 15:07 15:07 WBC RBC Hgb 15.5 H Hct 46.8 H Plt Count Lymph % (Auto) [place] % (Auto) Lymph # (Auto) [place] # (Auto) Seg Neutrophils % Seg Neutrophils # PT INR APTT Heparin Anti-Xa Level ABG pH ABG pO2 ABG O2 Saturation ABG Hemoglobin Oxyhemoglobin Sodium 128 L Potassium 5.3 H Chloride 94.0 L Carbon Dioxide 14 L BUN 59 H Creatinine 2.4 H Glucose 183 H POC Glucose 194 H Hemoglobin A1c Calcium 7.8 L Phosphorus Magnesium AST Troponin T NT-Pro-B Natriuret Pep Albumin Triglycerides LDL Cholesterol Direct HDL Cholesterol PTH Intact Urine Creatinine Urine Total Protein 06/28/22 06/28/22 06/28/22 15:07 15:54 17:10 WBC RBC Hgb Hct Plt Count Lymph % (Auto) [place] % (Auto) Lymph # (Auto) [place] # (Auto) Seg Neutrophils % Seg Neutrophils # PT 19.6 H INR 1.47 H APTT Heparin Anti-Xa Level ABG pH ABG pO2 ABG O2 Saturation ABG Hemoglobin Oxyhemoglobin Sodium Potassium Chloride Carbon Dioxide BUN Creatinine Glucose POC Glucose 189 H 216 H Hemoglobin A1c Calcium Phosphorus Magnesium AST Troponin T NT-Pro-B Natriuret Pep Albumin Triglycerides LDL Cholesterol Direct HDL Cholesterol PTH Intact Urine Creatinine Urine Total Protein 06/28/22 06/28/22 06/28/22 17:59 18:54 19:49 WBC RBC Hgb Hct Plt Count Lymph % (Auto) Whitley % (Auto) Lymph # (Auto) [place] # (Auto) Seg Neutrophils % Seg Neutrophils # PT INR APTT Heparin Anti-Xa Level ABG pH ABG pO2 ABG O2 Saturation ABG Hemoglobin Oxyhemoglobin Sodium Potassium Chloride Carbon Dioxide BUN Creatinine Glucose POC Glucose 195 H 178 H 166 H Hemoglobin A1c Calcium Phosphorus Magnesium AST Troponin T NT-Pro-B Natriuret Pep Albumin Triglycerides LDL Cholesterol Direct HDL Cholesterol PTH Intact Urine Creatinine Urine Total Protein 06/28/22 06/28/22 06/28/22 20:31 20:31 20:31 WBC RBC Hgb Hct Plt Count Lymph % (Auto) [place]ley % (Auto) Lymph # (Auto) [place] # (Auto) Seg Neutrophils % Seg Neutrophils # PT INR APTT Heparin Anti-Xa Level 0.19 L ABG pH ABG pO2 ABG O2 Saturation ABG Hemoglobin Oxyhemoglobin Sodium 129 L Potassium 5.1 H Chloride 95.6 L Carbon Dioxide 15 L BUN 59 H Creatinine 2.4 H Glucose 145 H POC Glucose Hemoglobin A1c 9.7 H Calcium 8.0 L Phosphorus 6.40 H Magnesium AST Troponin T NT-Pro-B Natriuret Pep Albumin Triglycerides LDL Cholesterol Direct HDL Cholesterol PTH Intact Urine Creatinine Urine Total Protein 06/28/22 06/28/22 06/28/22 21:27 22:22 23:36 WBC RBC Hgb Hct Plt Count Lymph % (Auto) Whitley % (Auto) Lymph # (Auto) [place] # (Auto) Seg Neutrophils % Seg Neutrophils # PT INR APTT Heparin Anti-Xa Level ABG pH ABG pO2 ABG O2 Saturation ABG Hemoglobin Oxyhemoglobin Sodium Potassium Chloride Carbon Dioxide BUN Creatinine Glucose POC Glucose 131 H 148 H 146 H Hemoglobin A1c Calcium Phosphorus Magnesium AST Troponin T NT-Pro-B Natriuret Pep Albumin Triglycerides LDL Cholesterol Direct HDL Cholesterol PTH Intact Urine Creatinine Urine Total Protein 06/29/22 06/29/22 06/29/22 00:21 01:27 02:54 WBC RBC Hgb Hct Plt Count Lymph % (Auto) Whitley % (Auto) Lymph # (Auto) [place] # (Auto) Seg Neutrophils % Seg Neutrophils # PT INR APTT Heparin Anti-Xa Level ABG pH ABG pO2 ABG O2 Saturation ABG Hemoglobin Oxyhemoglobin Sodium Potassium Chloride Carbon Dioxide BUN Creatinine Glucose POC Glucose 149 H 172 H 172 H Hemoglobin A1c Calcium Phosphorus Magnesium AST Troponin T NT-Pro-B Natriuret Pep Albumin Triglycerides LDL Cholesterol Direct HDL Cholesterol PTH Intact Urine Creatinine Urine Total Protein 06/29/22 06/29/22 06/29/22 04:05 04:21 04:21 WBC 17.1 H RBC Hgb 14.6 H Hct 43.9 H Plt Count Lymph % (Auto) Whitley % (Auto) Lymph # (Auto) [place] # (Auto) Seg Neutrophils % Seg Neutrophils # PT INR APTT Heparin Anti-Xa Level ABG pH ABG pO2 ABG O2 Saturation ABG Hemoglobin Oxyhemoglobin Sodium 129 L Potassium Chloride 97.6 L Carbon Dioxide 15 L BUN 59 H Creatinine 2.1 H Glucose 140 H POC Glucose 167 H Hemoglobin A1c Calcium 8.0 L Phosphorus Magnesium AST Troponin T NT-Pro-B Natriuret Pep Albumin Triglycerides LDL Cholesterol Direct HDL Cholesterol PTH Intact Urine Creatinine Urine Total Protein 06/29/22 06/29/22 06/29/22 04:21 06:27 07:31 WBC RBC Hgb Hct Plt Count Lymph % (Auto) Whitley % (Auto) Lymph # (Auto) [place]ley # (Auto) Seg Neutrophils % Seg Neutrophils # PT INR APTT Heparin Anti-Xa Level ABG pH ABG pO2 ABG O2 Saturation ABG Hemoglobin Oxyhemoglobin Sodium Potassium Chloride Carbon Dioxide BUN Creatinine Glucose POC Glucose 138 H 142 H Hemoglobin A1c Calcium Phosphorus Magnesium AST Troponin T NT-Pro-B Natriuret Pep Albumin Triglycerides LDL Cholesterol Direct HDL Cholesterol PTH Intact 382.4 H Urine Creatinine Urine Total Protein 06/29/22 06/29/22 06/29/22 08:33 09:28 10:35 WBC RBC Hgb Hct Plt Count Lymph % (Auto) Whitley % (Auto) Lymph # (Auto) [place]ley # (Auto) Seg Neutrophils % Seg Neutrophils # PT INR APTT Heparin Anti-Xa Level ABG pH ABG pO2 ABG O2 Saturation ABG Hemoglobin Oxyhemoglobin Sodium Potassium Chloride Carbon Dioxide BUN Creatinine Glucose POC Glucose 141 H 167 H 152 H Hemoglobin A1c Calcium Phosphorus Magnesium AST Troponin T NT-Pro-B Natriuret Pep Albumin Triglycerides LDL Cholesterol Direct HDL Cholesterol PTH Intact Urine Creatinine Urine Total Protein 06/29/22 06/29/22 06/29/22 10:47 11:30 12:33 WBC RBC Hgb Hct Plt Count Lymph % (Auto) Whitley % (Auto) Lymph # (Auto) [place] # (Auto) Seg Neutrophils % Seg Neutrophils # PT INR APTT Heparin Anti-Xa Level ABG pH ABG pO2 ABG O2 Saturation ABG Hemoglobin Oxyhemoglobin Sodium 131 L Potassium Chloride 94.4 L Carbon Dioxide 15 L BUN 59 H Creatinine 2.2 H Glucose 149 H POC Glucose 134 H 146 H Hemoglobin A1c Calcium Phosphorus 5.80 H Magnesium AST Troponin T NT-Pro-B Natriuret Pep Albumin Triglycerides LDL Cholesterol Direct HDL Cholesterol PTH Intact Urine Creatinine Urine Total Protein 06/29/22 06/29/22 06/29/22 13:28 14:33 15:49 WBC RBC Hgb Hct Plt Count Lymph % (Auto) Whitley % (Auto) Lymph # (Auto) [place] # (Auto) Seg Neutrophils % Seg Neutrophils # PT INR APTT Heparin Anti-Xa Level ABG pH ABG pO2 ABG O2 Saturation ABG Hemoglobin Oxyhemoglobin Sodium Potassium Chloride Carbon Dioxide BUN Creatinine Glucose POC Glucose 170 H 188 H 155 H Hemoglobin A1c Calcium Phosphorus Magnesium AST Troponin T NT-Pro-B Natriuret Pep Albumin Triglycerides LDL Cholesterol Direct HDL Cholesterol PTH Intact Urine Creatinine Urine Total Protein 06/29/22 06/29/22 06/29/22 16:14 16:14 16:45 WBC RBC Hgb Hct Plt Count Lymph % (Auto) Whitley % (Auto) Lymph # (Auto) [place]ley # (Auto) Seg Neutrophils % Seg Neutrophils # PT INR APTT Heparin Anti-Xa Level 0.19 L ABG pH ABG pO2 ABG O2 Saturation ABG Hemoglobin Oxyhemoglobin Sodium 128 L Potassium Chloride 95.8 L Carbon Dioxide 15 L BUN 52 H Creatinine 1.8 H Glucose 138 H POC Glucose 135 H Hemoglobin A1c Calcium 7.9 L Phosphorus Magnesium AST Troponin T NT-Pro-B Natriuret Pep Albumin Triglycerides LDL Cholesterol Direct HDL Cholesterol PTH Intact Urine Creatinine Urine Total Protein 06/29/22 06/29/22 06/29/22 17:47 18:52 20:14 WBC RBC Hgb Hct Plt Count Lymph % (Auto) Whitley % (Auto) Lymph # (Auto) [place] # (Auto) Seg Neutrophils % Seg Neutrophils # PT INR APTT Heparin Anti-Xa Level ABG pH ABG pO2 ABG O2 Saturation ABG Hemoglobin Oxyhemoglobin Sodium Potassium Chloride Carbon Dioxide BUN Creatinine Glucose POC Glucose 150 H 123 H 155 H Hemoglobin A1c Calcium Phosphorus Magnesium AST Troponin T NT-Pro-B Natriuret Pep Albumin Triglycerides LDL Cholesterol Direct HDL Cholesterol PTH Intact Urine Creatinine Urine Total Protein 06/29/22 06/29/22 06/29/22 20:17 21:11 21:53 WBC RBC Hgb Hct Plt Count Lymph % (Auto) Whitley % (Auto) Lymph # (Auto) [place] # (Auto) Seg Neutrophils % Seg Neutrophils # PT INR APTT Heparin Anti-Xa Level ABG pH ABG pO2 ABG O2 Saturation ABG Hemoglobin Oxyhemoglobin Sodium 131 L Potassium 5.5 H D Chloride Carbon Dioxide 15 L BUN 56 H Creatinine 2.0 H Glucose 146 H POC Glucose 152 H 165 H Hemoglobin A1c Calcium Phosphorus 5.20 H Magnesium AST Troponin T NT-Pro-B Natriuret Pep Albumin Triglycerides LDL Cholesterol Direct HDL Cholesterol PTH Intact Urine Creatinine Urine Total Protein 06/29/22 06/30/22 06/30/22 23:07 00:18 00:58 WBC RBC Hgb Hct Plt Count Lymph % (Auto) [place]ley % (Auto) Lymph # (Auto) [place] # (Auto) Seg Neutrophils % Seg Neutrophils # PT INR APTT Heparin Anti-Xa Level ABG pH ABG pO2 ABG O2 Saturation ABG Hemoglobin Oxyhemoglobin Sodium Potassium Chloride Carbon Dioxide BUN Creatinine Glucose POC Glucose 163 H 178 H 189 H Hemoglobin A1c Calcium Phosphorus Magnesium AST Troponin T NT-Pro-B Natriuret Pep Albumin Triglycerides LDL Cholesterol Direct HDL Cholesterol PTH Intact Urine Creatinine Urine Total Protein 06/30/22 06/30/22 06/30/22 01:57 02:59 03:53 WBC RBC Hgb Hct Plt Count Lymph % (Auto) [place]ley % (Auto) Lymph # (Auto) [place]ley # (Auto) Seg Neutrophils % Seg Neutrophils # PT INR APTT Heparin Anti-Xa Level ABG pH ABG pO2 ABG O2 Saturation ABG Hemoglobin Oxyhemoglobin Sodium Potassium Chloride Carbon Dioxide BUN Creatinine Glucose POC Glucose 150 H 147 H 122 H Hemoglobin A1c Calcium Phosphorus Magnesium AST Troponin T NT-Pro-B Natriuret Pep Albumin Triglycerides LDL Cholesterol Direct HDL Cholesterol PTH Intact Urine Creatinine Urine Total Protein 06/30/22 06/30/22 06/30/22 04:56 05:25 05:52 WBC RBC Hgb Hct Plt Count Lymph % (Auto) [place]ley % (Auto) Lymph # (Auto) [place] # (Auto) Seg Neutrophils % Seg Neutrophils # PT INR APTT Heparin Anti-Xa Level ABG pH ABG pO2 ABG O2 Saturation ABG Hemoglobin Oxyhemoglobin Sodium 132 L Potassium Chloride Carbon Dioxide 15 L BUN 53 H Creatinine 1.7 H Glucose 137 H POC Glucose 110 H 150 H Hemoglobin A1c Calcium Phosphorus Magnesium AST Troponin T NT-Pro-B Natriuret Pep Albumin Triglycerides LDL Cholesterol Direct HDL Cholesterol PTH Intact Urine Creatinine Urine Total Protein 06/30/22 06/30/22 06/30/22 07:25 08:20 09:20 WBC RBC Hgb Hct Plt Count Lymph % (Auto) [place]ley % (Auto) Lymph # (Auto) [place] # (Auto) Seg Neutrophils % Seg Neutrophils # PT INR APTT Heparin Anti-Xa Level ABG pH ABG pO2 ABG O2 Saturation ABG Hemoglobin Oxyhemoglobin Sodium Potassium Chloride Carbon Dioxide BUN Creatinine Glucose POC Glucose 133 H 119 H 128 H Hemoglobin A1c Calcium Phosphorus Magnesium AST Troponin T NT-Pro-B Natriuret Pep Albumin Triglycerides LDL Cholesterol Direct HDL Cholesterol PTH Intact Urine Creatinine Urine Total Protein 06/30/22 06/30/22 06/30/22 10:21 10:59 11:25 WBC RBC Hgb Hct Plt Count Lymph % (Auto) [place]ley % (Auto) Lymph # (Auto) [place] # (Auto) Seg Neutrophils % Seg Neutrophils # PT INR APTT Heparin Anti-Xa Level ABG pH ABG pO2 ABG O2 Saturation ABG Hemoglobin Oxyhemoglobin Sodium 132 L Potassium Chloride Carbon Dioxide 16 L BUN 49 H Creatinine 1.7 H Glucose 168 H POC Glucose 133 H 232 H Hemoglobin A1c Calcium 8.1 L Phosphorus Magnesium AST Troponin T NT-Pro-B Natriuret Pep Albumin Triglycerides LDL Cholesterol Direct HDL Cholesterol PTH Intact Urine Creatinine Urine Total Protein 06/30/22 06/30/22 07/01/22 16:15 21:30 05:10 WBC RBC Hgb Hct Plt Count Lymph % (Auto) [place]ley % (Auto) Lymph # (Auto) [place] # (Auto) Seg Neutrophils % Seg Neutrophils # PT INR APTT Heparin Anti-Xa Level 0.24 L ABG pH ABG pO2 ABG O2 Saturation ABG Hemoglobin Oxyhemoglobin Sodium Potassium Chloride Carbon Dioxide BUN Creatinine Glucose POC Glucose 325 H 279 H Hemoglobin A1c Calcium Phosphorus Magnesium AST Troponin T NT-Pro-B Natriuret Pep Albumin Triglycerides LDL Cholesterol Direct HDL Cholesterol PTH Intact Urine Creatinine Urine Total Protein 07/01/22 07/01/22 07/01/22 05:10 07:38 09:13 WBC RBC Hgb Hct Plt Count Lymph % (Auto) [place]ley % (Auto) Lymph # (Auto) [place] # (Auto) Seg Neutrophils % Seg Neutrophils # PT 15.9 H INR 1.14 H APTT Heparin Anti-Xa Level ABG pH ABG pO2 ABG O2 Saturation ABG Hemoglobin Oxyhemoglobin Sodium 132 L Potassium Chloride 97.8 L Carbon Dioxide 19 L BUN 34 H Creatinine 1.3 H Glucose 250 H POC Glucose 235 H Hemoglobin A1c Calcium Phosphorus Magnesium AST Troponin T NT-Pro-B Natriuret Pep Albumin Triglycerides LDL Cholesterol Direct HDL Cholesterol PTH Intact Urine Creatinine Urine Total Protein 07/01/22 07/01/22 07/01/22 12:03 13:42 16:32 WBC RBC Hgb Hct Plt Count Lymph % (Auto) [place]ley % (Auto) Lymph # (Auto) [place] # (Auto) Seg Neutrophils % Seg Neutrophils # PT INR APTT Heparin Anti-Xa Level 0.25 L ABG pH ABG pO2 ABG O2 Saturation ABG Hemoglobin Oxyhemoglobin Sodium Potassium Chloride Carbon Dioxide BUN Creatinine Glucose POC Glucose 272 H 316 H Hemoglobin A1c Calcium Phosphorus Magnesium AST Troponin T NT-Pro-B Natriuret Pep Albumin Triglycerides LDL Cholesterol Direct HDL Cholesterol PTH Intact Urine Creatinine Urine Total Protein 07/01/22 07/01/22 07/02/22 21:21 23:14 07:41 WBC RBC Hgb Hct Plt Count Lymph % (Auto) [place] % (Auto) Lymph # (Auto) [place] # (Auto) Seg Neutrophils % Seg Neutrophils # PT INR APTT Heparin Anti-Xa Level 0.27 L ABG pH ABG pO2 ABG O2 Saturation ABG Hemoglobin Oxyhemoglobin Sodium Potassium Chloride Carbon Dioxide BUN Creatinine Glucose POC Glucose 262 H 287 H Hemoglobin A1c Calcium Phosphorus Magnesium AST Troponin T NT-Pro-B Natriuret Pep Albumin Triglycerides LDL Cholesterol Direct HDL Cholesterol PTH Intact Urine Creatinine Urine Total Protein 07/02/22 07/02/22 07/02/22 08:12 08:12 20:28 WBC RBC Hgb 14.7 H Hct 46.3 H Plt Count 138 L Lymph % (Auto) [place]ley % (Auto) Lymph # (Auto) [place] # (Auto) Seg Neutrophils % Seg Neutrophils # PT INR APTT Heparin Anti-Xa Level 0.21 L ABG pH ABG pO2 ABG O2 Saturation ABG Hemoglobin Oxyhemoglobin Sodium 129 L Potassium Chloride 95.7 L Carbon Dioxide 17 L BUN 24 H Creatinine Glucose 275 H POC Glucose Hemoglobin A1c Calcium Phosphorus 2.10 L D Magnesium AST Troponin T NT-Pro-B Natriuret Pep Albumin Triglycerides LDL Cholesterol Direct HDL Cholesterol PTH Intact Urine Creatinine Urine Total Protein 07/02/22 07/02/22 07/03/22 20:28 23:01 07:28 WBC RBC Hgb Hct Plt Count Lymph % (Auto) [place] % (Auto) Lymph # (Auto) [place] # (Auto) Seg Neutrophils % Seg Neutrophils # PT 17.3 H INR 1.26 H APTT 24.1 L Heparin Anti-Xa Level ABG pH ABG pO2 ABG O2 Saturation ABG Hemoglobin Oxyhemoglobin Sodium Potassium Chloride Carbon Dioxide BUN Creatinine Glucose POC Glucose 340 H 261 H Hemoglobin A1c Calcium Phosphorus Magnesium AST Troponin T NT-Pro-B Natriuret Pep Albumin Triglycerides LDL Cholesterol Direct HDL Cholesterol PTH Intact Urine Creatinine Urine Total Protein 07/03/22 07/03/22 07/03/22 11:30 12:20 16:23 WBC RBC Hgb Hct Plt Count Lymph % (Auto) [place]ley % (Auto) Lymph # (Auto) [place] # (Auto) Seg Neutrophils % Seg Neutrophils # PT INR APTT Heparin Anti-Xa Level ABG pH ABG pO2 ABG O2 Saturation ABG Hemoglobin Oxyhemoglobin Sodium 134 L Potassium Chloride Carbon Dioxide BUN 18 H Creatinine Glucose 271 H POC Glucose 292 H 255 H Hemoglobin A1c Calcium Phosphorus Magnesium AST Troponin T NT-Pro-B Natriuret Pep Albumin Triglycerides LDL Cholesterol Direct HDL Cholesterol PTH Intact Urine Creatinine Urine Total Protein 07/03/22 07/04/22 07/04/22 22:01 05:37 05:37 WBC RBC Hgb Hct Plt Count Lymph % (Auto) 8.4 L Whitley % (Auto) 10.1 H Lymph # (Auto) 0.8 L Whitley # (Auto) 1.0 H Seg Neutrophils % 80.6 H Seg Neutrophils # 8.0 H PT INR APTT Heparin Anti-Xa Level ABG pH ABG pO2 ABG O2 Saturation ABG Hemoglobin Oxyhemoglobin Sodium Potassium Chloride Carbon Dioxide BUN Creatinine Glucose 217 H POC Glucose 281 H Hemoglobin A1c Calcium Phosphorus Magnesium AST Troponin T NT-Pro-B Natriuret Pep Albumin Triglycerides LDL Cholesterol Direct HDL Cholesterol PTH Intact Urine Creatinine Urine Total Protein 07/04/22 07/04/22 07/04/22 07:40 11:15 11:52 WBC RBC Hgb Hct Plt Count Lymph % (Auto) Whitley % (Auto) Lymph # (Auto) Whitley # (Auto) Seg Neutrophils % Seg Neutrophils # PT INR APTT Heparin Anti-Xa Level ABG pH 7.303 L ABG pO2 64.6 L ABG O2 Saturation 92.9 L ABG Hemoglobin 11.9 L Oxyhemoglobin 90.6 L Sodium Potassium Chloride Carbon Dioxide BUN Creatinine Glucose POC Glucose 211 H 267 H Hemoglobin A1c Calcium Phosphorus Magnesium AST Troponin T NT-Pro-B Natriuret Pep Albumin Triglycerides LDL Cholesterol Direct HDL Cholesterol PTH Intact Urine Creatinine Urine Total Protein Allied health notes reviewed: nursing
--- NOTE | 2022-07-04 18:54 | Progress Note ---
Subjective - Reason for Consult Consult date: 07/04/22 Reason for consult: medications management for bipiolar disorder - Chief Complaint Chief complaint: 07/03: Patient was seen today. Patient was alert and oriented x3 and cooperative throughout the interview, but gave minimal responses and would occasionally need a question repeated before answering. Patient reports "doing okay." Patient denies depressive or manic symptoms. Patient reports good sleep and appetite. Patient was asked about why she left her bed and did not respond. Patient denies SI HI AVH at this time. 07/02: Patient seen today. Patient alert and oriented x3 and cooperative throughout the interview. Patient reports good mood. Patient denies SI HI AVH. Patient depressive sx or manic symptoms. Patient denies SI HI AVH. Patient reports good appetite and okay sleep. 07/01: Patient seen today. Patient alert and oriented x1 and cooperative throughout the interview. When pt intially asked how she's feeling pt reports "I'm here." When asked again, patient jokes "thirsty." Patient denies depressive sx or manic symptoms. Patient denies SI HI AVH. Patient reports good appetite and okay sleep. 06/30: Patient seen today. Patient reports she feels like she's getting better. Patient requests to get out of her bed and sit in chair at bedside. Patient reports good mood, okay sleep, and good appetite. Patient denies depressive symptoms or manic symptoms. Patient denies SI HI AVH. 06/29: Patient is a 52 year-old female with psychiatric history of bipolar disorder and major depressive disorder. Psych was consulted for adjustment for meds for bipolar d/o in context of DKA. Patient was seen today. Patient was asleep but responsive to voice. Patient was oriented to time and place. Patient reports she's at the hospital because "I fell 2 days ago and couldn't get up." "I was hurting all over my body, I couldn't eat." Patient reports being unsure which psychiatric medications she was taking before arriving at hospital. Patient reports being d/c from lithium 2 weeks ago "because I was having heart problems." Patient reports being started on oxcarbazepine. When asked how patient was feeling, patient reports "I don't know, I can't tell you anything. I'm so sick." Patient denies depressive sx or manic symptoms. Patient denies SI HI AVH. MENTAL STATUS EXAMINATION General Appearance and Behavior: Age appropriate, disheveled, poor eye contact, polite with questioning Cooperation: Cooperative Psychomotor Behavior: Psychomotor within normal limits Mood: "good" Affect and affective range: congruent with stated mood Thought Process: goal-oriented Thought Content: reality-based Speech: Normal volume, normal rate and rhythm; 1-2 word responses Suicidal Ideation: Denies Homicidal Ideation: Denies Hallucination: Denies Delusions: None elicited Impulse Control: Fair Insight and Judgment: Fair Memory: Fair Attention: Attentive Orientation: Alert ASSESSMENT Bipolar disorder TREATMENT Maintain haldol 5 mg BID Maintain Depakote 250 mg q6h Risks, benefits and alternatives of medications discussed with the patient, questions answered and consent obtained from patient. PSYCHOTHERAPY: Supportive psychotherapy provided MEDICAL: Per primary team DELIRIUM PRECAUTIONS: Please re-orient patient frequently, keep lights on during the day, and minimize benzodiazepines and opiates as these medications could worsen patient's confusion. 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 FOLLOW-UP: Will follow Thank you for the consult. Please contact with any questions and/or concerns. Case staffed with Dr. Tatum Ace. Mental Status Exam - Vital signs Last Vital Signs Temp 98.7 F 07/04/22 09:13 Pulse 94 H 07/04/22 09:13 Resp 22 07/04/22 10:00 BP 172/88 07/04/22 09:15 Pulse Ox 98 07/04/22 10:00 Assessment and Plan - Patient Problems (1) Bipolar disorder Current Visit: Yes Status: Acute Qualifiers: Active/Remission status: in partial remission
[2022-07-05] MEDS: DIVALPROEX DR 250 MG TAB PO SCH ×2 (01:47→08:15)
[2022-07-05] MEDS: SODIUM BICARBONATE 650 MG TAB PO SCH (08:15)
[2022-07-05] MEDS: PANTOPRAZOLE 40 MG TAB PO SCH (08:15)
[2022-07-05] MEDS: INSULIN REGULAR, HUMAN 100 UNITS/1 ML SUB-Q SCH ×3 (08:15→18:36)
[2022-07-05] MEDS: INSULIN NPH/REGULAR 70/30 INJ SUB-Q SCH ×2 (09:00→18:36)
--- NOTE | 2022-07-05 10:15 | Progress Note ---
Assessment and Plan 1. Acute kidney injury: Suspect vasomotor STEFFANIE in the setting of DKA/volume depletion. Renal US negative for hydro/stone. Monitor renal function. Creatinine level is better. Avoid nephrotoxic agents. Meds dosage based on GFR. 2. FEN: Hyperkalemia, improved. Anion-gap Metabolic acidosis, 2/2 DKA, monitor. Replete lytes as needed. Monitor lytes and volume status. 3. S/p Cardiac arrest 07/05: Currently in ICU. Cards consulted. 4. Resp failure: Currently on MV. 5. A.fib with RVR: Cards consulted. 6. DKA: Admits to stop taking meds at home. S/p Insulin drip. Improved. Monitor. 7. Acute DVT involving the external iliac veins bilaterally with thrombus extending distally bilaterally: S/p LE angioplsty Followed by Vascular. 8. Hypertension: Monitor BP. 9. H/o COPD. Subjective: Patient was seen and examined at the bedside. S/p Cardiac arrest this AM. Examination: General appearance: well-developed, obese, appears stated age, intubated, on MV HEENT: atraumatic, no icterus Neck: trachea midline Respiratory: coarse breath sounds heard Heart: S1S2, irregular, no murmur Abdomen: soft, obese, bowel sounds heard, NT Integumentary: no rash on the inspected area Neurologic: not responding Ext: trace Ext and dependent edema Subjective Date of service: 07/05/22 Principal diagnosis: AHRF; DKA; Hyperkalemia; COPD; ? cellulitis; PVD; STEFFANIE; Morbid obesity; ?JACKLYN Objective - Vital Signs Vital signs: Vital Signs - 12hr 07/05/22 04:46 Temperature 98.4 F Pulse Rate 86 Respiratory 24 Rate Blood Pressure 133/64 O2 Sat by Pulse 86 Oximetry - Lab 07/05/22 Unknown 07/05/22 Unknown Most recent lab results ABG pH 7.303 pH Units (7.350-7.450) L 07/04/22 11:15 ABG pCO2 51.9 mm Hg 07/04/22 11:15 ABG pO2 64.6 mm Hg (80.0-90.0) L 07/04/22 11:15 ABG HCO3 25.1 mmol/L (20.0-26.0) 07/04/22 11:15 ABG O2 Saturation 92.9 % (95.0-99.0) L 07/04/22 11:15 Calcium 9.0 mg/dL (8.4-10.2) 07/04/22 05:37 Phosphorus 2.10 mg/dL (2.5-4.5) L D 07/02/22 08:12 Magnesium 2.30 mg/dL (1.7-2.3) 07/02/22 08:12 Urine Creatinine 85.4 mg/dL (0.1-20.0) H 06/28/22 08:10 Urine Sodium 10 mmol/L 06/28/22 08:10 Urine Total Protein 49 mg/dL (5-11.8) H 06/28/22 08:10 Medications & Allergies - Medications Allergies/Adverse Reactions: Allergies ciprofloxacin [From Cipro] Allergy (Verified 05/28/22 12:07) Unknown Penicillins Allergy (Verified 05/28/22 12:07) Unknown Home Medications: Home Medications Medication Instructions Recorded Confirmed Last Taken Type Apixaban [Eliquis] 5 mg PO BID 04/13/21 06/28/22 Unknown History Empagliflozin [Jardiance] 25 mg DAILY 04/13/21 06/28/22 Unknown History Fenofibrate 160 mg PO DAILY 04/13/21 06/28/22 Unknown History Glimepiride 4 mg BID 04/13/21 06/28/22 Unknown History Insulin Aspart (Nf) [NovoLOG 100 unit SQ PRN PRN 04/13/21 06/28/22 Unknown History Flexpen] Levothyroxine [Synthroid] 112 mcg PO QAM 04/13/21 06/28/22 Unknown History Lisinopril/Hydrochlorothiazide 1 tab PO QDAY 04/13/21 06/28/22 Unknown History [Zestoretic 20-12.5 mg] [place] Carbonate 600 mg PO QHS 04/13/21 06/28/22 Unknown History [place] Carbonate [Eskalith] 150 mg PO QAM 04/13/21 06/28/22 Unknown History Lurasidone [Latuda] 40 mg QHS 04/13/21 06/28/22 Unknown History Oxybutynin Chloride [Ditropan Xl] 15 mg PO QDAY 04/13/21 06/28/22 Unknown History Semaglutide [Ozempic] 1 unit SQ 1XW 04/13/21 06/28/22 Unknown History Venlafaxine HCl [Venlafaxine HCl 150 mg DAILY 04/13/21 06/28/22 Unknown History ER] buPROPion SR [Wellbutrin SR] 100 mg PO DAILY 04/13/21 06/28/22 Unknown History Doxycycline Hyclate [Doxycycline 100 mg PO Q12HR 7 Days #14 04/14/21 06/28/22 Unknown Rx Hyclate TAB] Active Medications: Generic Name Dose Route Start Last Admin Trade Name Freq PRN Reason Stop Dose Admin Acetaminophen 650 mg 06/28/22 03:09 Acetaminophen 325 Mg Tab PO Q6H PRN Pain MILD(1-3)/Fever >100.5/MURILLO Apixaban 10 mg 07/02/22 22:00 07/04/22 22:47 Apixaban 5 Mg Tab PO 07/09/22 22:01 10 mg Q12HR SHANTHI Administration Protocol Apixaban 5 mg 07/10/22 10:00 Apixaban 5 Mg Tab PO Q12HR SHANTHI Protocol Atorvastatin Calcium 40 mg 07/03/22 22:00 07/04/22 22:41 Atorvastatin 40 Mg Tab PO 40 mg QHS SHANTHI Administration Dextrose 50 ml 06/30/22 09:00 Dextrose 50% In Water (25gm) 50 Ml Syringe IV Q30MIN PRN Hypoglycemia Protocol Divalproex Sodium 250 mg 06/30/22 20:00 07/05/22 08:[address] 250 Mg Tab PO 250 mg Q6H SHANTHI Administration Haloperidol 5 mg 06/30/22 22:00 07/04/22 22:42 Haloperidol 5 Mg Tab PO 5 mg BID SHANTHI Administration Insulin Human Isoph/Insulin Regular 30 unit 07/05/22 09:00 Insulin Nph/Regular 70/30 Inj SUB-Q BIDDIAB SHANTHI Insulin Human Regular 8 units 07/01/22 07:35 07/05/22 08:15 Insulin Regular, Human 100 Units/1 Ml SUB-Q 8 units AC SHANTHI Administration Levothyroxine Sodium 112 mcg 07/04/22 10:00 07/04/22 09:14 Levothyroxine 112 Mcg Tab PO 112 mcg QAM SHANTHI Administration Lisinopril 40 mg 07/04/22 10:00 07/04/22 09:15 Lisinopril 40 Mg Tab PO 40 mg QDAY SHANTHI Administration Morphine Sulfate 2 mg 06/28/22 03:09 06/28/22 18:06 Morphine 2 Mg/1 Ml Inj IV 2 mg Q4H PRN Administration Pain, Moderate (4-6) Nicotine 21 mg 07/04/22 15:00 07/04/22 14:53 Nicotine 21 Mg/24 Hr Patch TD 21 mg QDAY SHANTHI Administration Nifedipine 30 mg 07/04/22 10:00 07/04/22 09:14 Nifedipine Xl 30 Mg Tab PO 30 mg QDAY SHANTHI Administration Ondansetron HCl 4 mg 06/28/22 03:09 06/28/22 05:44 Ondansetron 4 Mg/2 Ml Inj IV 4 mg Q8H PRN Administration Nausea And Vomiting Pantoprazole Sodium 40 mg 07/03/22 07:30 07/05/22 08:15 Pantoprazole 40 Mg Tab PO 40 mg BIDAC SHANTHI Administration Sodium Bicarbonate 1,300 mg 07/02/22 14:00 07/05/22 08:15 Sodium Bicarbonate 650 Mg Tab PO 1,300 mg TID SHANTHI Administration Sodium Chloride 10 ml 06/28/22 10:00 07/04/22 22:44 Sodium Chloride 0.9% 10 Ml Flush Syringe IV 10 ml BID SHANTHI Administration Sodium Chloride 10 ml 06/28/22 03:09 Sodium Chloride 0.9% 10 Ml Flush Syringe IV PRN PRN LINE FLUSH
[2022-07-05] MEDS ORDERED: SODIUM BICARBONATE 325 MG TAB FEEDTUBE PRN (10:26)
[2022-07-05] MEDS ORDERED: SODIUM CHLORIDE 0.9% 1000 ML 1,000 ML ONE (10:47)
[2022-07-05] MEDS: HALOPERIDOL 5 MG TAB FEEDTUBE SCH ×2 (11:00→22:18)
[2022-07-05] MEDS ORDERED: MINERAL OIL/PETROLATUM, WHITE OPHTH OINT 3.5 GM OU PRN (11:00)
[2022-07-05] MEDS ORDERED: SIMPLE SYRUP 15 ML FEEDTUBE PRN ×2 (11:00)
[2022-07-05] MEDS: SENNOSIDES/DOCUSATE SODIUM 8.6/50 MG TAB FEEDTUBE SCH ×2 (11:00→22:20)
[2022-07-05] MEDS ORDERED: LIPASE 10,500/PROTEASE 25,000/AMYLASE 43,750 (UNITS) DR CAP FEEDTUBE PRN (11:00)
[2022-07-05] MEDS ORDERED: NORepinephrine/NS 8 MG-250 ML 8 MG/250 ML INFUS..BTL IV SCH (11:00)
--- NOTE | 2022-07-05 11:05 | XRay Report ---
CHEST 1 VIEW 07/05/2022 9:48 AM INDICATION / CLINICAL INFORMATION: Code blue. COMPARISON: 06/27/2022. FINDINGS: SUPPORT DEVICES: NG tube and endotracheal tube in satisfactory position. HEART / MEDIASTINUM: Stable. LUNGS / PLEURA: Lung volumes remain diminished. Mild increasing opacity at the left base. No pneumoth orax. ADDITIONAL FINDINGS: No significant additional findings. IMPRESSION: 1. Lines and tubes in satisfactory position. 2. Increasing opacity left base. Signer Name: Bruce Arredondo MD Signed: 07/05/2022 11:01 AM Workstation Name: [id number]
[2022-07-05] MEDS: PHENYLEPHRINE 100 MG in SODIUM CHLORIDE 0.9% 250ML 240 ML IV SCH ×2 (11:11→18:39)
[2022-07-05 11:32] LABS: ABG Base Excess 0.4 mmol/L (-2.0-3.0); ABG HCO3 27.2 mmol/L (20.0-26.0); ABG Methemoglobin 0.4 % (0.0-1.5); ABG Oxygen Saturation 97.3 % (95.0-99.0); ABG PH 7.313 pH Units (7.350-7.450); ABG PO2 102.1 mm Hg (80.0-90.0)
--- NOTE | 2022-07-05 11:48 | Progress Note ---
Assessment and Plan Patient has an upcoming diagnostic test to determine the etiology of the patient's acute hypotension and code. At time of examination, the patient's blood pressure is 139/77 and she gives a thumbs up when asked how she feels. Patient is currently on 1 pressor. Subjective Date of service: 07/05/22 Principal diagnosis: AHRF; DKA; Hyperkalemia; COPD; ? cellulitis; PVD; STEFFANIE; Morbid obesity; ?JACKLYN Interval history: Patient with a history of morbid obesity who presented in DKA. Patient's anion gap is still 17. She was noted on admission to have bilateral lower extremity occlusive DVT with extension into the IVC. Patient maintained arterial outflow with palpable pedal pulses. She underwent thrombectomy on Saturday. This morning, the patient while sitting in bed became hypotensive and a CODE BLUE called. At time of examination, the patient is in the ICU, intubated but awake. Objective - Constitutional Vitals: Vital Signs - 12hr 07/05/22 07/05/22 07/05/22 04:46 10:10 10:37 Temperature 98.4 F Pulse Rate 86 124 H Respiratory 24 8 L Rate Blood Pressure 133/64 74/32 O2 Sat by Pulse 86 96 94 Oximetry General appearance: Present: obese, other (Intubated) - Labs CBC & Chem 7: 07/04/22 05:37 07/05/22 05:24 Labs: Abnormal lab results 07/04/22 07/04/22 07/04/22 Range/Units 11:52 16:51 22:03 ABG pH (7.350-7.450) pH Units ABG pO2 (80.0-90.0) mm Hg ABG HCO3 (20.0-26.0) mmol/L ABG Hemoglobin (12.0-16.0) gm/dl POC Glucose 267 H 273 H 202 H (70-105) mg/dL 07/05/22 07/05/22 Range/Units 07:48 11:06 ABG pH 7.313 L (7.350-7.450) pH Units ABG pO2 102.1 H (80.0-90.0) mm Hg ABG HCO3 27.2 H (20.0-26.0) mmol/L ABG Hemoglobin 10.6 L (12.0-16.0) gm/dl POC Glucose 223 H (70-105) mg/dL Medications & Allergies - Medications Allergies/Adverse Reactions: Allergies ciprofloxacin [From Cipro] Allergy (Verified 05/28/22 12:07) Unknown Penicillins Allergy (Verified 05/28/22 12:07) Unknown Home Medications: Home Medications Medication Instructions Recorded Confirmed Last Taken Type Apixaban [Eliquis] 5 mg PO BID 04/13/21 06/28/22 Unknown History Empagliflozin [Jardiance] 25 mg DAILY 04/13/21 06/28/22 Unknown History Fenofibrate 160 mg PO DAILY 04/13/21 06/28/22 Unknown History Glimepiride 4 mg BID 04/13/21 06/28/22 Unknown History Insulin Aspart (Nf) [NovoLOG 100 unit SQ PRN PRN 04/13/21 06/28/22 Unknown History Flexpen] Levothyroxine [Synthroid] 112 mcg PO QAM 04/13/21 06/28/22 Unknown History Lisinopril/Hydrochlorothiazide 1 tab PO QDAY 04/13/21 06/28/22 Unknown History [Zestoretic 20-12.5 mg] [employer] Carbonate 600 mg PO QHS 04/13/21 06/28/22 Unknown History [employer] Carbonate [Eskalith] 150 mg PO QAM 04/13/21 06/28/22 Unknown History Lurasidone [Latuda] 40 mg QHS 04/13/21 06/28/22 Unknown History Oxybutynin Chloride [Ditropan Xl] 15 mg PO QDAY 04/13/21 06/28/22 Unknown History Semaglutide [Ozempic] 1 unit SQ 1XW 04/13/21 06/28/22 Unknown History Venlafaxine HCl [Venlafaxine HCl 150 mg DAILY 04/13/21 06/28/22 Unknown History ER] buPROPion SR [Wellbutrin SR] 100 mg PO DAILY 04/13/21 06/28/22 Unknown History Doxycycline Hyclate [Doxycycline 100 mg PO Q12HR 7 Days #14 04/14/21 06/28/22 Unknown Rx Hyclate TAB] Active Medications: Generic Name Dose Route Start Last Admin Trade Name Freq PRN Reason Stop Dose Admin Acetaminophen 650 mg 06/28/22 03:09 Acetaminophen 325 Mg Tab PO Q6H PRN Pain MILD(1-3)/Fever >100.5/MURILLO Lipase/Protease/Amylase 1 each 07/05/22 11:00 Lipase 10,500/Protease 25,000/Amylase 43,750 (Units) Dr [place] FEEDTUBE PRN PRN For Clogged Feeding Tube Apixaban 5 mg 07/10/22 10:00 Apixaban 5 Mg Tab FEEDTUBE Q12HR SHANTHI Protocol Apixaban 10 mg 07/05/22 12:00 Apixaban 5 Mg Tab FEEDTUBE 07/09/22 22:01 Q12HR SHANTHI Protocol Atorvastatin Calcium 40 mg 07/05/22 10:38 Atorvastatin 40 Mg Tab FEEDTUBE QHS SHANTHI Dextrose 50 ml 06/30/22 09:00 Dextrose 50% In Water (25gm) 50 Ml Syringe IV Q30MIN PRN Hypoglycemia Protocol Divalproex Sodium 250 mg 06/30/22 20:00 07/05/22 08:[address] 250 Mg Tab PO 250 mg Q6H SHANTHI Administration Haloperidol 5 mg 07/05/22 11:00 Haloperidol 5 Mg Tab FEEDTUBE BID SHANTHI Hydrophilic Ointment 1 applic 07/05/22 12:00 Lip Therapy Vaseline TP Q2H PRN Dry Lips Propofol 1,000 mg in 100 mls @ 4.188 mls/hr 07/05/22 10:00 Diprivan 10 Mg/Ml IV TITR SHANTHI Protocol 5 MCG/KG/MIN Phenylephrine HCl 100 mg/ 250 mls @ 10.47 mls/hr 07/05/22 10:45 07/05/22 11:11 Sodium Chloride IV 0.5 mcg/kg/min TITRATE SHANTHI 10.47 mls/hr Administration Protocol 0.5 MCG/KG/MIN Sodium Chloride 1,000 mls @ 999 mls/hr 07/05/22 12:00 Nacl 0.9% 1000 Ml IV 07/05/22 13:00 BOLUS ONE Sodium Chloride 500 mls @ 1 mls/hr 07/05/22 12:00 Nacl 0.9% 500 Ml IV DIRECT PRN ARTERIAL LINE FLUSH Vasopressin 20 unit/ Sodium 101 mls @ 9.09 mls/hr 07/05/22 12:00 Chloride IV TITR SHANTHI Protocol 0.03 UNITS/MIN Sodium Chloride 1,000 mls @ 999 mls/hr 07/05/22 12:30 Nacl 0.9% 1000 Ml IV 07/05/22 13:30 BOLUS ONE Insulin Human Isoph/Insulin Regular 30 unit 07/05/22 09:00 Insulin Nph/Regular 70/30 Inj SUB-Q BIDDIAB SHANTHI Insulin Human Regular 8 units 07/01/22 07:35 07/05/22 08:15 Insulin Regular, Human 100 Units/1 Ml SUB-Q 8 units AC SHANTHI Administration Lansoprazole 30 mg 07/06/22 10:00 Lansoprazole 30 Mg Solutab FEEDTUBE QDAY SHANTHI Levothyroxine Sodium 112 mcg 07/05/22 12:00 Levothyroxine 112 Mcg Tab FEEDTUBE QAM SHANTHI Multi-Ingred Cream/Lotion/Oil/Oint 1 applic 07/05/22 11:00 Mineral Oil/Petrolatum, White Ophth Oint 3.5 Gm OU Q4H PRN Dry Eye(s) Nicotine 21 mg 07/04/22 15:00 07/04/22 14:53 Nicotine 21 Mg/24 Hr Patch TD 21 mg QDAY SHANTHI Administration Ondansetron HCl 4 mg 06/28/22 03:09 06/28/22 05:44 Ondansetron 4 Mg/2 Ml Inj IV 4 mg Q8H PRN Administration Nausea And Vomiting Senna/Docusate Sodium 1 tab 07/05/22 11:00 Sennosides/Docusate Sodium 8.6/50 Mg Tab FEEDTUBE BID SHANTHI Simple Syrup 15 ml 07/05/22 11:00 Simple Syrup 15 Ml FEEDTUBE PRN PRN Hypoglycemia Simple Syrup 30 ml 07/05/22 11:00 Simple Syrup 15 Ml FEEDTUBE PRN PRN Hypoglycemia Sodium Bicarbonate 1,300 mg 07/02/22 14:00 07/05/22 08:15 Sodium Bicarbonate 650 Mg Tab PO 1,300 mg TID SHANTHI Administration Sodium Bicarbonate 325 mg 07/05/22 10:26 Sodium Bicarbonate 325 Mg Tab FEEDTUBE PRN PRN For Clogged Feeding Tube Sodium Chloride 10 ml 06/28/22 10:00 07/04/22 22:44 Sodium Chloride 0.9% 10 Ml Flush Syringe IV 10 ml BID SHANTHI Administration Sodium Chloride 10 ml 06/28/22 03:09 Sodium Chloride 0.9% 10 Ml Flush Syringe IV PRN PRN LINE FLUSH HEART Score - HEART Score Troponin: Troponin T 0.080 ng/mL (0.00-0.029) H 06/27/22 20:48
[2022-07-05] MEDS ORDERED: SODIUM CHLORIDE 0.9% 500 ML 500 ML IV PRN (12:00)
[2022-07-05] MEDS ORDERED: SODIUM CHLORIDE 0.9% 1000 ML 1,000 ML IV ONE ×2 (12:00→12:30)
[2022-07-05] MEDS: LEVOTHYROXINE 112 MCG TAB FEEDTUBE SCH (12:00)
[2022-07-05] MEDS ORDERED: LIP THERAPY VASELINE TP PRN (12:00)
--- NOTE | 2022-07-05 12:24 | XRay Report ---
ABDOMEN 1 VIEW 07/05/2022 10:27 AM INDICATION / CLINICAL INFORMATION: ogt. COMPARISON: 06/29/22 FINDINGS: TUBES / LINES: Esophagogastric tube projects over the mid stomach. BOWEL GAS PATTERN: No significant abnormality. FREE AIR / EXTRALUMINAL GAS: None. ADDITIONAL FINDINGS: IVC filter is unchanged. Persistent dense nephrogram of the left kidney posterio rly related to recent cardiac catheter procedure. IMPRESSION: 1. Esophagogastric tube in expected position. 2. Persistent dense left nephrogram. Correlation with renal function labs is recommended. Signer Name: Marvin Stockton MD Signed: 07/05/2022 12:20 PM Workstation Name: [id number]
--- NOTE | 2022-07-05 12:58 | Consultation ---
History of Present Illness Consult date: 07/05/22 Consult reason: other (Cardiopulmonary arrest) History of present illness: The patient is a 52-year-old woman with multiple comorbidities including morbid obesity, diabetes, and a history of venous thromboembolism on Eliquis therapy and previous IVC filter. She was admitted to this hospital over a week ago, with severe diabetic ketoacidosis. During her further evaluation, it was reported that she had been noncompliant with her anticoagulation, and vascular assessment demonstrated extensive and occlusive venous thrombi extending to the IVC filter. She subsequently underwent mechanical thrombectomy by vascular surgery, and supportive management over the past several days of her DKA. This morning, while on the medical floor, she was reported to have suddenly become apneic, a code was called and ACLS protocol was commenced, patient is currently intubated on the vent in the CCU. Cardiology consultation was requested for assessment of "cardiac" arrest. I reviewed her ECGs and telemetry strips from her admission a week ago. On presentation, there was an atrial fibrillation with ventricular rate in the 120s, and a wide QRS right bundle branch block. This is apparently not new, EKGs in the chart from 2020 show an atrial fibrillation with right bundle branch block. During her current hospital course, after optimal management of her ketoacidosis, she returned to a stable normal sinus rhythm at 60-70. This morn ing, she was in a stable sinus rhythm just before her current decompensation which was manifested by sudden development of asystole. No ventricular tachycardia or ventricular arrhythmias were noted. Patient is currently awake, on the vent in the ICU, able to follow commands. She remains in a stable sinus rhythm. Past History Past Medical History: COPD, diabetes, hypertension, other (Bilateral lower extremity venous insufficiency, morbid obesity) Past Surgical History: Other (Lower extremity thrombectomy) Social history: smoking ( Current Every Day Smoker) Family history: no significant family history Medications and Allergies Allergies Allergy/AdvReac Type Severity Reaction Status Date / Time ciprofloxacin [From Cipro] Allergy Unknown Verified 05/28/22 12:07 Penicillins Allergy Unknown Verified 05/28/22 12:07 Home Medications Medication Instructions Recorded Confirmed Last Taken Type Apixaban [Eliquis] 5 mg PO BID 04/13/21 06/28/22 Unknown History Empagliflozin [Jardiance] 25 mg DAILY 04/13/21 06/28/22 Unknown History Fenofibrate 160 mg PO DAILY 04/13/21 06/28/22 Unknown History Glimepiride 4 mg BID 04/13/21 06/28/22 Unknown History Insulin Aspart (Nf) [NovoLOG 100 unit SQ PRN PRN 04/13/21 06/28/22 Unknown History Flexpen] Levothyroxine [Synthroid] 112 mcg PO QAM 04/13/21 06/28/22 Unknown History Lisinopril/Hydrochlorothiazide 1 tab PO QDAY 04/13/21 06/28/22 Unknown History [Zestoretic 20-12.5 mg] [place] Carbonate 600 mg PO QHS 04/13/21 06/28/22 Unknown History [place] Carbonate [Eskalith] 150 mg PO QAM 04/13/21 06/28/22 Unknown History Lurasidone [Latuda] 40 mg QHS 04/13/21 06/28/22 Unknown History Oxybutynin Chloride [Ditropan Xl] 15 mg PO QDAY 04/13/21 06/28/22 Unknown History Semaglutide [Ozempic] 1 unit SQ 1XW 04/13/21 06/28/22 Unknown History Venlafaxine HCl [Venlafaxine HCl 150 mg DAILY 04/13/21 06/28/22 Unknown History ER] buPROPion SR [Wellbutrin SR] 100 mg PO DAILY 04/13/21 06/28/22 Unknown History Doxycycline Hyclate [Doxycycline 100 mg PO Q12HR 7 Days #14 04/14/21 06/28/22 Unknown Rx Hyclate TAB] Active Meds: Active Medications Acetaminophen (Acetaminophen 325 Mg Tab) 650 mg PO Q6H PRN PRN Reason: Pain MILD(1-3)/Fever >100.5/[place]UR[place] Lipase/Protease/Amylase (Lipase 10,500/Protease 25,000/Amylase 43,750 (Units) Dr [place]) 1 each FEEDTUBE PRN PRN PRN Reason: For Clogged Feeding Tube Apixaban (Apixaban 5 Mg Tab) 5 mg FEEDTUBE Q12HR SHANTHI; Protocol Apixaban (Apixaban 5 Mg Tab) 10 mg FEEDTUBE Q12HR SHANTHI; Protocol Stop: 07/09/22 22:01 Atorvastatin Calcium (Atorvastatin 40 Mg Tab) 40 mg FEEDTUBE QHS SHANTHI Dextrose (Dextrose 50% In Water (25gm) 50 Ml Syringe) 50 ml IV Q30MIN PRN; Protocol PRN Reason: Hypoglycemia Haloperidol (Haloperidol 5 Mg Tab) 5 mg FEEDTUBE BID SHANTHI Hydrophilic Ointment (Lip Therapy Vaseline) 1 applic TP Q2H PRN PRN Reason: Dry Lips Propofol (Diprivan 10 Mg/Ml) 1,000 mg in 100 mls @ 4.188 mls/hr IV TITR SHANTHI; Protocol Last Admin: 07/05/22 11:49 Dose: 5 mcg/kg/min, 4.188 mls/hr Phenylephrine HCl 100 mg/ (Sodium Chloride) 250 mls @ 10.47 mls/hr IV TITRATE SHANTHI; Protocol Last Admin: 07/05/22 11:11 Dose: 0.5 mcg/kg/min, 10.47 mls/hr Sodium Chloride (Nacl 0.9% 1000 Ml) 1,000 mls @ 999 mls/hr IV BOLUS ONE Stop: 07/05/22 13:00 Last Admin: 07/05/22 11:00 Dose: 999 mls/hr Sodium Chloride (Nacl 0.9% 500 Ml) 500 mls @ 1 mls/hr IV DIRECT PRN PRN Reason: ARTERIAL LINE FLUSH Vasopressin 20 unit/ Sodium (Chloride) 101 mls @ 9.09 mls/hr IV TITR SHANTHI; Protocol Sodium Chloride (Nacl 0.9% 1000 Ml) 1,000 mls @ 999 mls/hr IV BOLUS ONE Stop: 07/05/22 13:30 Insulin Human Isoph/Insulin Regular (Insulin Nph/Regular 70/30 Inj) 30 unit SUB-Q BIDDIAB SHANTHI Insulin Human Regular (Insulin Regular, Human 100 Units/1 Ml) 8 units SUB-Q AC SHANTHI Last Admin: 07/05/22 08:15 Dose: 8 units Lansoprazole (Lansoprazole 30 Mg Solutab) 30 mg FEEDTUBE QDAY SHANTHI Levothyroxine Sodium (Levothyroxine 112 Mcg Tab) 112 mcg FEEDTUBE QAM SHANTHI Multi-Ingred Cream/Lotion/Oil/Oint (Mineral Oil/Petrolatum, White Ophth Oint 3.5 Gm) 1 applic OU Q4H PRN PRN Reason: Dry Eye(s) Nicotine (Nicotine 21 Mg/24 Hr Patch) 21 mg TD QDAY SHANTHI Last Admin: 07/04/22 14:53 Dose: 21 mg Ondansetron HCl (Ondansetron 4 Mg/2 Ml Inj) 4 mg IV Q8H PRN PRN Reason: Nausea And Vomiting Last Admin: 06/28/22 05:44 Dose: 4 mg Senna/Docusate Sodium (Sennosides/Docusate Sodium 8.6/50 Mg Tab) 1 tab FEEDTUBE BID SHANTHI Simple Syrup (Simple Syrup 15 Ml) 15 ml FEEDTUBE PRN PRN PRN Reason: Hypoglycemia Simple Syrup (Simple Syrup 15 Ml) 30 ml FEEDTUBE PRN PRN PRN Reason: Hypoglycemia Sodium Bicarbonate (Sodium Bicarbonate 325 Mg Tab) 325 mg FEEDTUBE PRN PRN PRN Reason: For Clogged Feeding Tube Sodium Bicarbonate (Sodium Bicarbonate 650 Mg Tab) 1,300 mg FEEDTUBE TID SHANTHI Sodium Chloride (Sodium Chloride 0.9% 10 Ml Flush Syringe) 10 ml IV BID SHANTHI Last Admin: 07/04/22 22:44 Dose: 10 ml Sodium Chloride (Sodium Chloride 0.9% 10 Ml Flush Syringe) 10 ml IV PRN PRN PRN Reason: LINE FLUSH Valproic Acid (Valproic Acid 250 Mg/5 Ml Oral Liqd) 250 mg FEEDTUBE Q6HR SHANTHI Review of Systems ROS unobtainable: due to endotracheal tube Physical Examination Vital Signs Pulse Resp BP Pulse Ox 133 H 35 H 96/68 98 06/27/22 20:07 06/27/22 20:07 06/27/22 20:07 06/27/22 20:07 General appearance: other (Awake, on the vent, follows commands) HEENT: Positive: PERRL Neck: Positive: neck supple Cardiac: Positive: Reg Rate and Rhythm Lungs: Positive: Decreased Breath Sounds Neuro: Positive: Grossly Intact Abdomen: Positive: Soft Female genitourinary: deferred Skin: Positive: Clear Extremities: Absent: edema Results 07/04/22 05:37 07/05/22 05:24 Comprehensive Metabolic Panel 07/05/22 Range/Units 05:24 Creatinine 0.9 (0.6-1.2) mg/dL EKG interpretations - Telemetry EKG Rhythm: Sinus Rhythm (With right bundle branch block) Assessment and Plan - Patient Problems (1) Cardiopulmonary arrest Current Visit: Yes Status: Acute Plan to address problem: Patient was on csr at the time of her respiratory decompensation, no primary cardiac arrhythmias were noted. With history of recent extensive venous thromboembolism, most likely etiology to pursue is acute pulmonary embolism, in addition to other pulmonary etiologies such as sleep apnea, pulmonary atelectasis. Unlikely primary cardiac event. Defer to internal medicine and pulmonary for work-up of pulmonary causes of acute respiratory failure. We will order an echocardiogram for left ventricular function and right ventricular function assessment. (2) Paroxysmal atrial fibrillation Current Visit: Yes Status: Acute Plan to address problem: Patient has paroxysmal atrial fibrillation, with underlying right bundle branch block, findings are chronic. She is on long-term anticoagulation with Eliquis for her venous thromboembolism. We will direct further treatment for atrial fibrillation suppression as needed.
--- NOTE | 2022-07-05 13:21 | Progress Note ---
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 Non-insulin dependent type II diabetes mellitus with hyperglycemia Hypertension Hyperlipidemia Hypothyroidism H/O COPD Bipolar Disorder Tobacco use disorder/Nicotine dependence Morbid obesity -Wean vasopresor support for MAP>65 -Titrate supplemental oxygen to keep SpO2 89-92% -VAP bundle addressed, aspiration precautions HOB>30 -Stress ulcer prophylaxis- Famotidine -VTE prophylaxis-on therapeutic Apixaban -Transthoracic echocardiogram, pending -Titrate Propofol to keep RASS 0 to -1 -Prn Fentanyl for analgesia, titrate to CPOT >3 -Daily SBT and SAT trials as tolerated, daily assessment for readiness to wean -ABG and CXR as clinically indicated -Enteric nutrition support, confirm NGT/OGT placement and initiate tube feeding -Mobility, off loading and frequent turning per facility protocol to prevent pressure ulcers -Trend temperature curve and WCC -Maintain euglycemia. Keep blood glucose 140-180mg/dL while critically ill. Avoid hypoglycemia -Monitor hemodynamics closely -Supportive transfusions as clinically indicated to keep HgB >7g/dL -Can continue Nicotine patch and nicotine withdrawal precautions -Avoid nephrotxins, prevent recovery from STEFFANIE/ATN -Place PICC for vasoactive drug administration Discussed with respiratory care, nursing care and clinical pharmacist. CONDITION: CRITICAL PROGNOSIS: GUARDED CODE STATUS: FULL CODE The high probability of a clinically significant, sudden or life threatening deterioration of the [multiple] system(s) required my full and direct attention, intervention and personal management. The aggregate critical care time was [35] minutes. This time is in addition to time spent performing reported procedures but includes the following: [x] Data Review and interpretation [x] Patient assessment and monitoring of vital signs [x] Documentation [x] Medication orders and management Subjective Date of service: 07/05/22 Principal diagnosis: AHRF; DKA; Hyperkalemia; COPD; ? cellulitis; PVD; STEFFANIE; Morbid obesity; ?JACKLYN Interval history: Patient is seen today for: Acute hypoxemic respiratory failure; DKA; Hyperkalemia; COPD; Possible cellulitis; PVD; STEFFANIE; Morbid obesity Seen and examined at bedside; 24hour events reviewed; nursing and respiratory care staff consulted; no adverse overnight events reported to me; s/p cardiac arrest this morning, asystole with ROSC. Intubated and transferred to the ICU. Obeying some simple commands. Hypotensive with tachycardia- on Neosynephrine and Vasopressin Objective Vital Signs - 12hr 07/05/22 07/05/22 07/05/22 04:46 10:10 10:37 Temperature 98.4 F Pulse Rate 86 124 H Respiratory 24 8 L Rate Blood Pressure 133/64 74/32 O2 Sat by Pulse 86 96 94 Oximetry Constitutional: no acute distress, other (orally intubated) Eyes: non-icteric ENT: oropharynx moist Neck: supple, no lymphadenopathy, no JVD, other (large circumference) Effort: mildly labored Ascultation: Bilateral: clear, diminished breath sounds Percussion: Bilateral: not dull Cardiovascular: regular rate and rhythm, other (S1,S2) Gastrointestinal: normoactive bowel sounds, non-tender, tender, non-distended Integumentary: rash (shins), other (erythema to shins) Extremities: no cyanosis, pink and warm, no ischemia or petechiae, edema (trace to 1+) Neurologic: non-focal exam (grossly, moves all extremities), pupils equal and round CBC and BMP: 07/07/22 05:35 07/07/22 05:35 ABG, PT/INR, D-dimer: ABG ABG pH 7.313 pH Units (7.350-7.450) L 07/05/22 11:06 ABG pCO2 55.0 mm Hg 07/05/22 11:06 ABG pO2 102.1 mm Hg (80.0-90.0) H 07/05/22 11:06 ABG O2 Saturation 97.3 % (95.0-99.0) 07/05/22 11:06 PT/INR, D-dimer PT 17.3 Sec. (12.2-14.9) H 07/02/22 20:28 INR 1.26 (0.87-1.13) H 07/02/22 20:28 Abnormal lab findings: Abnormal Labs 06/27/22 06/27/22 06/27/22 20:48 20:48 23:56 WBC 18.7 H RBC Hgb 15.1 H Hct 47.1 H Plt Count Lymph % (Auto) 6.3 L Shannon % (Auto) Lymph # (Auto) Shannon # (Auto) 0.9 H Seg Neutrophils % 88.6 H Seg Neutrophils # 16.5 H PT INR APTT Heparin Anti-Xa Level ABG pH ABG pO2 ABG HCO3 ABG O2 Saturation ABG Hemoglobin Oxyhemoglobin Sodium 123 L 121 L Potassium 6.9 H* 6.4 H* Chloride 82.4 L 79.7 L Carbon Dioxide 7 L* 8 L* BUN 50 H 54 H Creatinine 2.2 H 2.5 H Glucose 578 H* 562 H* POC Glucose Hemoglobin A1c Calcium Phosphorus 10.40 H Magnesium 2.70 H 2.60 H AST 50 H Troponin T 0.080 H NT-Pro-B Natriuret Pep 4137 H Albumin 3.1 L Triglycerides 349 H LDL Cholesterol Direct 37 L HDL Cholesterol 38 L PTH Intact Urine Creatinine Urine Total Protein 06/28/22 06/28/22 06/28/22 01:45 03:17 03:35 WBC RBC Hgb Hct Plt Count Lymph % (Auto) Shannon % (Auto) Lymph # (Auto) Shannon # (Auto) Seg Neutrophils % Seg Neutrophils # PT INR APTT Heparin Anti-Xa Level ABG pH ABG pO2 ABG HCO3 ABG O2 Saturation ABG Hemoglobin Oxyhemoglobin Sodium 120 L 121 L Potassium 6.2 H* 5.4 H Chloride 79.1 L 84.7 L Carbon Dioxide 7 L* 7 L* BUN 55 H 57 H Creatinine 2.6 H 2.6 H Glucose 551 H* 486 H POC Glucose 568 H Hemoglobin A1c Calcium 8.1 L 7.7 L Phosphorus Magnesium AST Troponin T NT-Pro-B Natriuret Pep Albumin Triglycerides LDL Cholesterol Direct HDL Cholesterol PTH Intact Urine Creatinine Urine Total Protein 06/28/22 06/28/22 06/28/22 03:35 04:05 05:13 WBC RBC Hgb Hct Plt Count Lymph % (Auto) Shannon % (Auto) Lymph # (Auto) Shannon # (Auto) Seg Neutrophils % Seg Neutrophils # PT INR APTT Heparin Anti-Xa Level ABG pH ABG pO2 ABG HCO3 ABG O2 Saturation ABG Hemoglobin Oxyhemoglobin Sodium Potassium Chloride Carbon Dioxide BUN Creatinine Glucose POC Glucose 508 H 443 H Hemoglobin A1c Calcium Phosphorus 9.20 H Magnesium AST Troponin T NT-Pro-B Natriuret Pep Albumin Triglycerides LDL Cholesterol Direct HDL Cholesterol PTH Intact Urine Creatinine Urine Total Protein 06/28/22 06/28/22 06/28/22 05:40 06:30 07:39 WBC RBC Hgb Hct Plt Count Lymph % (Auto) Shannon % (Auto) Lymph # (Auto) Shannon # (Auto) Seg Neutrophils % Seg Neutrophils # PT INR APTT Heparin Anti-Xa Level ABG pH ABG pO2 ABG HCO3 ABG O2 Saturation ABG Hemoglobin Oxyhemoglobin Sodium 124 L Potassium 5.1 H Chloride 86.5 L Carbon Dioxide 13 L BUN 59 H Creatinine 2.6 H Glucose 396 H POC Glucose 419 H 377 H Hemoglobin A1c Calcium 8.0 L Phosphorus Magnesium AST Troponin T NT-Pro-B Natriuret Pep Albumin Triglycerides LDL Cholesterol Direct HDL Cholesterol PTH Intact Urine Creatinine Urine Total Protein 06/28/22 06/28/22 06/28/22 08:10 08:18 09:32 WBC RBC Hgb Hct Plt Count Lymph % (Auto) Shannon % (Auto) Lymph # (Auto) Shannon # (Auto) Seg Neutrophils % Seg Neutrophils # PT INR APTT Heparin Anti-Xa Level ABG pH ABG pO2 ABG HCO3 ABG O2 Saturation ABG Hemoglobin Oxyhemoglobin Sodium Potassium Chloride Carbon Dioxide BUN Creatinine Glucose POC Glucose 390 H 347 H Hemoglobin A1c Calcium Phosphorus Magnesium AST Troponin T NT-Pro-B Natriuret Pep Albumin Triglycerides LDL Cholesterol Direct HDL Cholesterol PTH Intact Urine Creatinine 85.4 H Urine Total Protein 49 H 06/28/22 06/28/22 06/28/22 10:46 11:40 12:40 WBC RBC Hgb Hct Plt Count Lymph % (Auto) Shannon % (Auto) Lymph # (Auto) Shannon # (Auto) Seg Neutrophils % Seg Neutrophils # PT INR APTT Heparin Anti-Xa Level ABG pH ABG pO2 ABG HCO3 ABG O2 Saturation ABG Hemoglobin Oxyhemoglobin Sodium Potassium Chloride Carbon Dioxide BUN Creatinine Glucose POC Glucose 313 H 274 H 258 H Hemoglobin A1c Calcium Phosphorus Magnesium AST Troponin T NT-Pro-B Natriuret Pep Albumin Triglycerides LDL Cholesterol Direct HDL Cholesterol PTH Intact Urine Creatinine Urine Total Protein 06/28/22 06/28/22 06/28/22 13:38 14:13 14:13 WBC 19.7 H RBC 5.33 H Hgb 16.2 H Hct 49.4 H Plt Count Lymph % (Auto) Shannon % (Auto) Lymph # (Auto) Shannon # (Auto) Seg Neutrophils % Seg Neutrophils # PT INR APTT Heparin Anti-Xa Level ABG pH ABG pO2 ABG HCO3 ABG O2 Saturation ABG Hemoglobin Oxyhemoglobin Sodium 125 L Potassium 5.4 H Chloride 87.6 L Carbon Dioxide 18 L BUN 58 H Creatinine 2.5 H Glucose 199 H POC Glucose 205 H Hemoglobin A1c Calcium Phosphorus 6.90 H D Magnesium AST Troponin T NT-Pro-B Natriuret Pep Albumin Triglycerides LDL Cholesterol Direct HDL Cholesterol PTH Intact Urine Creatinine Urine Total Protein 06/28/22 06/28/22 06/28/22 14:56 15:07 15:07 WBC RBC Hgb 15.5 H Hct 46.8 H Plt Count Lymph % (Auto) Shannon % (Auto) Lymph # (Auto) Shannon # (Auto) Seg Neutrophils % Seg Neutrophils # PT INR APTT Heparin Anti-Xa Level ABG pH ABG pO2 ABG HCO3 ABG O2 Saturation ABG Hemoglobin Oxyhemoglobin Sodium 128 L Potassium 5.3 H Chloride 94.0 L Carbon Dioxide 14 L BUN 59 H Creatinine 2.4 H Glucose 183 H POC Glucose 194 H Hemoglobin A1c Calcium 7.8 L Phosphorus Magnesium AST Troponin T NT-Pro-B Natriuret Pep Albumin Triglycerides LDL Cholesterol Direct HDL Cholesterol PTH Intact Urine Creatinine Urine Total Protein 06/28/22 06/28/22 06/28/22 15:07 15:54 17:10 WBC RBC Hgb Hct Plt Count Lymph % (Auto) Shannon % (Auto) Lymph # (Auto) Shannon # (Auto) Seg Neutrophils % Seg Neutrophils # PT 19.6 H INR 1.47 H APTT Heparin Anti-Xa Level ABG pH ABG pO2 ABG HCO3 ABG O2 Saturation ABG Hemoglobin Oxyhemoglobin Sodium Potassium Chloride Carbon Dioxide BUN Creatinine Glucose POC Glucose 189 H 216 H Hemoglobin A1c Calcium Phosphorus Magnesium AST Troponin T NT-Pro-B Natriuret Pep Albumin Triglycerides LDL Cholesterol Direct HDL Cholesterol PTH Intact Urine Creatinine Urine Total Protein 06/28/22 06/28/22 06/28/22 17:59 18:54 19:49 WBC RBC Hgb Hct Plt Count Lymph % (Auto) Shannon % (Auto) Lymph # (Auto) Shannon # (Auto) Seg Neutrophils % Seg Neutrophils # PT INR APTT Heparin Anti-Xa Level ABG pH ABG pO2 ABG HCO3 ABG O2 Saturation ABG Hemoglobin Oxyhemoglobin Sodium Potassium Chloride Carbon Dioxide BUN Creatinine Glucose POC Glucose 195 H 178 H 166 H Hemoglobin A1c Calcium Phosphorus Magnesium AST Troponin T NT-Pro-B Natriuret Pep Albumin Triglycerides LDL Cholesterol Direct HDL Cholesterol PTH Intact Urine Creatinine Urine Total Protein 06/28/22 06/28/22 06/28/22 20:31 20:31 20:31 WBC RBC Hgb Hct Plt Count Lymph % (Auto) Shannon % (Auto) Lymph # (Auto) Shannon # (Auto) Seg Neutrophils % Seg Neutrophils # PT INR APTT Heparin Anti-Xa Level 0.19 L ABG pH ABG pO2 ABG HCO3 ABG O2 Saturation ABG Hemoglobin Oxyhemoglobin Sodium 129 L Potassium 5.1 H Chloride 95.6 L Carbon Dioxide 15 L BUN 59 H Creatinine 2.4 H Glucose 145 H POC Glucose Hemoglobin A1c 9.7 H Calcium 8.0 L Phosphorus 6.40 H Magnesium AST Troponin T NT-Pro-B Natriuret Pep Albumin Triglycerides LDL Cholesterol Direct HDL Cholesterol PTH Intact Urine Creatinine Urine Total Protein 06/28/22 06/28/22 06/28/22 21:27 22:22 23:36 WBC RBC Hgb Hct Plt Count Lymph % (Auto) Shannon % (Auto) Lymph # (Auto) Shannon # (Auto) Seg Neutrophils % Seg Neutrophils # PT INR APTT Heparin Anti-Xa Level ABG pH ABG pO2 ABG HCO3 ABG O2 Saturation ABG Hemoglobin Oxyhemoglobin Sodium Potassium Chloride Carbon Dioxide BUN Creatinine Glucose POC Glucose 131 H 148 H 146 H Hemoglobin A1c Calcium Phosphorus Magnesium AST Troponin T NT-Pro-B Natriuret Pep Albumin Triglycerides LDL Cholesterol Direct HDL Cholesterol PTH Intact Urine Creatinine Urine Total Protein 06/29/22 06/29/22 06/29/22 00:21 01:27 02:54 WBC RBC Hgb Hct Plt Count Lymph % (Auto) Shannon % (Auto) Lymph # (Auto) Shannon # (Auto) Seg Neutrophils % Seg Neutrophils # PT INR APTT Heparin Anti-Xa Level ABG pH ABG pO2 ABG HCO3 ABG O2 Saturation ABG Hemoglobin Oxyhemoglobin Sodium Potassium Chloride Carbon Dioxide BUN Creatinine Glucose POC Glucose 149 H 172 H 172 H Hemoglobin A1c Calcium Phosphorus Magnesium AST Troponin T NT-Pro-B Natriuret Pep Albumin Triglycerides LDL Cholesterol Direct HDL Cholesterol PTH Intact Urine Creatinine Urine Total Protein 06/29/22 06/29/22 06/29/22 04:05 04:21 04:21 WBC 17.1 H RBC Hgb 14.6 H Hct 43.9 H Plt Count Lymph % (Auto) Shannon % (Auto) Lymph # (Auto) Shannon # (Auto) Seg Neutrophils % Seg Neutrophils # PT INR APTT Heparin Anti-Xa Level ABG pH ABG pO2 ABG HCO3 ABG O2 Saturation ABG Hemoglobin Oxyhemoglobin Sodium 129 L Potassium Chloride 97.6 L Carbon Dioxide 15 L BUN 59 H Creatinine 2.1 H Glucose 140 H POC Glucose 167 H Hemoglobin A1c Calcium 8.0 L Phosphorus Magnesium AST Troponin T NT-Pro-B Natriuret Pep Albumin Triglycerides LDL Cholesterol Direct HDL Cholesterol PTH Intact Urine Creatinine Urine Total Protein 06/29/22 06/29/22 06/29/22 04:21 06:27 07:31 WBC RBC Hgb Hct Plt Count Lymph % (Auto) Shannon % (Auto) Lymph # (Auto) Shannon # (Auto) Seg Neutrophils % Seg Neutrophils # PT INR APTT Heparin Anti-Xa Level ABG pH ABG pO2 ABG HCO3 ABG O2 Saturation ABG Hemoglobin Oxyhemoglobin Sodium Potassium Chloride Carbon Dioxide BUN Creatinine Glucose POC Glucose 138 H 142 H Hemoglobin A1c Calcium Phosphorus Magnesium AST Troponin T NT-Pro-B Natriuret Pep Albumin Triglycerides LDL Cholesterol Direct HDL Cholesterol PTH Intact 382.4 H Urine Creatinine Urine Total Protein 06/29/22 06/29/22 06/29/22 08:33 09:28 10:35 WBC RBC Hgb Hct Plt Count Lymph % (Auto) Shannon % (Auto) Lymph # (Auto) Shannon # (Auto) Seg Neutrophils % Seg Neutrophils # PT INR APTT Heparin Anti-Xa Level ABG pH ABG pO2 ABG HCO3 ABG O2 Saturation ABG Hemoglobin Oxyhemoglobin Sodium Potassium Chloride Carbon Dioxide BUN Creatinine Glucose POC Glucose 141 H 167 H 152 H Hemoglobin A1c Calcium Phosphorus Magnesium AST Troponin T NT-Pro-B Natriuret Pep Albumin Triglycerides LDL Cholesterol Direct HDL Cholesterol PTH Intact Urine Creatinine Urine Total Protein 06/29/22 06/29/22 06/29/22 10:47 11:30 12:33 WBC RBC Hgb Hct Plt Count Lymph % (Auto) Shannon % (Auto) Lymph # (Auto) Shannon # (Auto) Seg Neutrophils % Seg Neutrophils # PT INR APTT Heparin Anti-Xa Level ABG pH ABG pO2 ABG HCO3 ABG O2 Saturation ABG Hemoglobin Oxyhemoglobin Sodium 131 L Potassium Chloride 94.4 L Carbon Dioxide 15 L BUN 59 H Creatinine 2.2 H Glucose 149 H POC Glucose 134 H 146 H Hemoglobin A1c Calcium Phosphorus 5.80 H Magnesium AST Troponin T NT-Pro-B Natriuret Pep Albumin Triglycerides LDL Cholesterol Direct HDL Cholesterol PTH Intact Urine Creatinine Urine Total Protein 06/29/22 06/29/22 06/29/22 13:28 14:33 15:49 WBC RBC Hgb Hct Plt Count Lymph % (Auto) Shannon % (Auto) Lymph # (Auto) Shannon # (Auto) Seg Neutrophils % Seg Neutrophils # PT INR APTT Heparin Anti-Xa Level ABG pH ABG pO2 ABG HCO3 ABG O2 Saturation ABG Hemoglobin Oxyhemoglobin Sodium Potassium Chloride Carbon Dioxide BUN Creatinine Glucose POC Glucose 170 H 188 H 155 H Hemoglobin A1c Calcium Phosphorus Magnesium AST Troponin T NT-Pro-B Natriuret Pep Albumin Triglycerides LDL Cholesterol Direct HDL Cholesterol PTH Intact Urine Creatinine Urine Total Protein 06/29/22 06/29/22 06/29/22 16:14 16:14 16:45 WBC RBC Hgb Hct Plt Count Lymph % (Auto) Shannon % (Auto) Lymph # (Auto) Shannon # (Auto) Seg Neutrophils % Seg Neutrophils # PT INR APTT Heparin Anti-Xa Level 0.19 L ABG pH ABG pO2 ABG HCO3 ABG O2 Saturation ABG Hemoglobin Oxyhemoglobin Sodium 128 L Potassium Chloride 95.8 L Carbon Dioxide 15 L BUN 52 H Creatinine 1.8 H Glucose 138 H POC Glucose 135 H Hemoglobin A1c Calcium 7.9 L Phosphorus Magnesium AST Troponin T NT-Pro-B Natriuret Pep Albumin Triglycerides LDL Cholesterol Direct HDL Cholesterol PTH Intact Urine Creatinine Urine Total Protein 06/29/22 06/29/22 06/29/22 17:47 18:52 20:14 WBC RBC Hgb Hct Plt Count Lymph % (Auto) Shannon % (Auto) Lymph # (Auto) Shannon # (Auto) Seg Neutrophils % Seg Neutrophils # PT INR APTT Heparin Anti-Xa Level ABG pH ABG pO2 ABG HCO3 ABG O2 Saturation ABG Hemoglobin Oxyhemoglobin Sodium Potassium Chloride Carbon Dioxide BUN Creatinine Glucose POC Glucose 150 H 123 H 155 H Hemoglobin A1c Calcium Phosphorus Magnesium AST Troponin T NT-Pro-B Natriuret Pep Albumin Triglycerides LDL Cholesterol Direct HDL Cholesterol PTH Intact Urine Creatinine Urine Total Protein 06/29/22 06/29/22 06/29/22 20:17 21:11 21:53 WBC RBC Hgb Hct Plt Count Lymph % (Auto) Shannon % (Auto) Lymph # (Auto) Shannon # (Auto) Seg Neutrophils % Seg Neutrophils # PT INR APTT Heparin Anti-Xa Level ABG pH ABG pO2 ABG HCO3 ABG O2 Saturation ABG Hemoglobin Oxyhemoglobin Sodium 131 L Potassium 5.5 H D Chloride Carbon Dioxide 15 L BUN 56 H Creatinine 2.0 H Glucose 146 H POC Glucose 152 H 165 H Hemoglobin A1c Calcium Phosphorus 5.20 H Magnesium AST Troponin T NT-Pro-B Natriuret Pep Albumin Triglycerides LDL Cholesterol Direct HDL Cholesterol PTH Intact Urine Creatinine Urine Total Protein 06/29/22 06/30/22 06/30/22 23:07 00:18 00:58 WBC RBC Hgb Hct Plt Count Lymph % (Auto) Shannon % (Auto) Lymph # (Auto) Shannon # (Auto) Seg Neutrophils % Seg Neutrophils # PT INR APTT Heparin Anti-Xa Level ABG pH ABG pO2 ABG HCO3 ABG O2 Saturation ABG Hemoglobin Oxyhemoglobin Sodium Potassium Chloride Carbon Dioxide BUN Creatinine Glucose POC Glucose 163 H 178 H 189 H Hemoglobin A1c Calcium Phosphorus Magnesium AST Troponin T NT-Pro-B Natriuret Pep Albumin Triglycerides LDL Cholesterol Direct HDL Cholesterol PTH Intact Urine Creatinine Urine Total Protein 06/30/22 06/30/22 06/30/22 01:57 02:59 03:53 WBC RBC Hgb Hct Plt Count Lymph % (Auto) Shannon % (Auto) Lymph # (Auto) Shannon # (Auto) Seg Neutrophils % Seg Neutrophils # PT INR APTT Heparin Anti-Xa Level ABG pH ABG pO2 ABG HCO3 ABG O2 Saturation ABG Hemoglobin Oxyhemoglobin Sodium Potassium Chloride Carbon Dioxide BUN Creatinine Glucose POC Glucose 150 H 147 H 122 H Hemoglobin A1c Calcium Phosphorus Magnesium AST Troponin T NT-Pro-B Natriuret Pep Albumin Triglycerides LDL Cholesterol Direct HDL Cholesterol PTH Intact Urine Creatinine Urine Total Protein 06/30/22 06/30/22 06/30/22 04:56 05:25 05:52 WBC RBC Hgb Hct Plt Count Lymph % (Auto) Shannon % (Auto) Lymph # (Auto) Shannon # (Auto) Seg Neutrophils % Seg Neutrophils # PT INR APTT Heparin Anti-Xa Level ABG pH ABG pO2 ABG HCO3 ABG O2 Saturation ABG Hemoglobin Oxyhemoglobin Sodium 132 L Potassium Chloride Carbon Dioxide 15 L BUN 53 H Creatinine 1.7 H Glucose 137 H POC Glucose 110 H 150 H Hemoglobin A1c Calcium Phosphorus Magnesium AST Troponin T NT-Pro-B Natriuret Pep Albumin Triglycerides LDL Cholesterol Direct HDL Cholesterol PTH Intact Urine Creatinine Urine Total Protein 06/30/22 06/30/22 06/30/22 07:25 08:20 09:20 WBC RBC Hgb Hct Plt Count Lymph % (Auto) Shannon % (Auto) Lymph # (Auto) Shannon # (Auto) Seg Neutrophils % Seg Neutrophils # PT INR APTT Heparin Anti-Xa Level ABG pH ABG pO2 ABG HCO3 ABG O2 Saturation ABG Hemoglobin Oxyhemoglobin Sodium Potassium Chloride Carbon Dioxide BUN Creatinine Glucose POC Glucose 133 H 119 H 128 H Hemoglobin A1c Calcium Phosphorus Magnesium AST Troponin T NT-Pro-B Natriuret Pep Albumin Triglycerides LDL Cholesterol Direct HDL Cholesterol PTH Intact Urine Creatinine Urine Total Protein 06/30/22 06/30/22 06/30/22 10:21 10:59 11:25 WBC RBC Hgb Hct Plt Count Lymph % (Auto) Shannon % (Auto) Lymph # (Auto) Shannon # (Auto) Seg Neutrophils % Seg Neutrophils # PT INR APTT Heparin Anti-Xa Level ABG pH ABG pO2 ABG HCO3 ABG O2 Saturation ABG Hemoglobin Oxyhemoglobin Sodium 132 L Potassium Chloride Carbon Dioxide 16 L BUN 49 H Creatinine 1.7 H Glucose 168 H POC Glucose 133 H 232 H Hemoglobin A1c Calcium 8.1 L Phosphorus Magnesium AST Troponin T NT-Pro-B Natriuret Pep Albumin Triglycerides LDL Cholesterol Direct HDL Cholesterol PTH Intact Urine Creatinine Urine Total Protein 06/30/22 06/30/22 07/01/22 16:15 21:30 05:10 WBC RBC Hgb Hct Plt Count Lymph % (Auto) Shannon % (Auto) Lymph # (Auto) Shannon # (Auto) Seg Neutrophils % Seg Neutrophils # PT INR APTT Heparin Anti-Xa Level 0.24 L ABG pH ABG pO2 ABG HCO3 ABG O2 Saturation ABG Hemoglobin Oxyhemoglobin Sodium Potassium Chloride Carbon Dioxide BUN Creatinine Glucose POC Glucose 325 H 279 H Hemoglobin A1c Calcium Phosphorus Magnesium AST Troponin T NT-Pro-B Natriuret Pep Albumin Triglycerides LDL Cholesterol Direct HDL Cholesterol PTH Intact Urine Creatinine Urine Total Protein 07/01/22 07/01/22 07/01/22 05:10 07:38 09:13 WBC RBC Hgb Hct Plt Count Lymph % (Auto) Shannon % (Auto) Lymph # (Auto) Shannon # (Auto) Seg Neutrophils % Seg Neutrophils # PT 15.9 H INR 1.14 H APTT Heparin Anti-Xa Level ABG pH ABG pO2 ABG HCO3 ABG O2 Saturation ABG Hemoglobin Oxyhemoglobin Sodium 132 L Potassium Chloride 97.8 L Carbon Dioxide 19 L BUN 34 H Creatinine 1.3 H Glucose 250 H POC Glucose 235 H Hemoglobin A1c Calcium Phosphorus Magnesium AST Troponin T NT-Pro-B Natriuret Pep Albumin Triglycerides LDL Cholesterol Direct HDL Cholesterol PTH Intact Urine Creatinine Urine Total Protein 07/01/22 07/01/22 07/01/22 12:03 13:42 16:32 WBC RBC Hgb Hct Plt Count Lymph % (Auto) Shannon % (Auto) Lymph # (Auto) Shannon # (Auto) Seg Neutrophils % Seg Neutrophils # PT INR APTT Heparin Anti-Xa Level 0.25 L ABG pH ABG pO2 ABG HCO3 ABG O2 Saturation ABG Hemoglobin Oxyhemoglobin Sodium Potassium Chloride Carbon Dioxide BUN Creatinine Glucose POC Glucose 272 H 316 H Hemoglobin A1c Calcium Phosphorus Magnesium AST Troponin T NT-Pro-B Natriuret Pep Albumin Triglycerides LDL Cholesterol Direct HDL Cholesterol PTH Intact Urine Creatinine Urine Total Protein 07/01/22 07/01/22 07/02/22 21:21 23:14 07:41 WBC RBC Hgb Hct Plt Count Lymph % (Auto) Shannon % (Auto) Lymph # (Auto) Shannon # (Auto) Seg Neutrophils % Seg Neutrophils # PT INR APTT Heparin Anti-Xa Level 0.27 L ABG pH ABG pO2 ABG HCO3 ABG O2 Saturation ABG Hemoglobin Oxyhemoglobin Sodium Potassium Chloride Carbon Dioxide BUN Creatinine Glucose POC Glucose 262 H 287 H Hemoglobin A1c Calcium Phosphorus Magnesium AST Troponin T NT-Pro-B Natriuret Pep Albumin Triglycerides LDL Cholesterol Direct HDL Cholesterol PTH Intact Urine Creatinine Urine Total Protein 07/02/22 07/02/22 07/02/22 08:12 08:12 20:28 WBC RBC Hgb 14.7 H Hct 46.3 H Plt Count 138 L Lymph % (Auto) Shannon % (Auto) Lymph # (Auto) Shannon # (Auto) Seg Neutrophils % Seg Neutrophils # PT INR APTT Heparin Anti-Xa Level 0.21 L ABG pH ABG pO2 ABG HCO3 ABG O2 Saturation ABG Hemoglobin Oxyhemoglobin Sodium 129 L Potassium Chloride 95.7 L Carbon Dioxide 17 L BUN 24 H Creatinine Glucose 275 H POC Glucose Hemoglobin A1c Calcium Phosphorus 2.10 L D Magnesium AST Troponin T NT-Pro-B Natriuret Pep Albumin Triglycerides LDL Cholesterol Direct HDL Cholesterol PTH Intact Urine Creatinine Urine Total Protein 07/02/22 07/02/22 07/03/22 20:28 23:01 07:28 WBC RBC Hgb Hct Plt Count Lymph % (Auto) Shannon % (Auto) Lymph # (Auto) Shannon # (Auto) Seg Neutrophils % Seg Neutrophils # PT 17.3 H INR 1.26 H APTT 24.1 L Heparin Anti-Xa Level ABG pH ABG pO2 ABG HCO3 ABG O2 Saturation ABG Hemoglobin Oxyhemoglobin Sodium Potassium Chloride Carbon Dioxide BUN Creatinine Glucose POC Glucose 340 H 261 H Hemoglobin A1c Calcium Phosphorus Magnesium AST Troponin T NT-Pro-B Natriuret Pep Albumin Triglycerides LDL Cholesterol Direct HDL Cholesterol PTH Intact Urine Creatinine Urine Total Protein 07/03/22 07/03/22 07/03/22 11:30 12:20 16:23 WBC RBC Hgb Hct Plt Count Lymph % (Auto) Shannon % (Auto) Lymph # (Auto) Shannon # (Auto) Seg Neutrophils % Seg Neutrophils # PT INR APTT Heparin Anti-Xa Level ABG pH ABG pO2 ABG HCO3 ABG O2 Saturation ABG Hemoglobin Oxyhemoglobin Sodium 134 L Potassium Chloride Carbon Dioxide BUN 18 H Creatinine Glucose 271 H POC Glucose 292 H 255 H Hemoglobin A1c Calcium Phosphorus Magnesium AST Troponin T NT-Pro-B Natriuret Pep Albumin Triglycerides LDL Cholesterol Direct HDL Cholesterol PTH Intact Urine Creatinine Urine Total Protein 07/03/22 07/04/22 07/04/22 22:01 05:37 05:37 WBC RBC Hgb Hct Plt Count Lymph % (Auto) 8.4 L Shannon % (Auto) 10.1 H Lymph # (Auto) 0.8 L Shannon # (Auto) 1.0 H Seg Neutrophils % 80.6 H Seg Neutrophils # 8.0 H PT INR APTT Heparin Anti-Xa Level ABG pH ABG pO2 ABG HCO3 ABG O2 Saturation ABG Hemoglobin Oxyhemoglobin Sodium Potassium Chloride Carbon Dioxide BUN Creatinine Glucose 217 H POC Glucose 281 H Hemoglobin A1c Calcium Phosphorus Magnesium AST Troponin T NT-Pro-B Natriuret Pep Albumin Triglycerides LDL Cholesterol Direct HDL Cholesterol PTH Intact Urine Creatinine Urine Total Protein 07/04/22 07/04/22 07/04/22 07:40 11:15 11:52 WBC RBC Hgb Hct Plt Count Lymph % (Auto) Shannon % (Auto) Lymph # (Auto) Shannon # (Auto) Seg Neutrophils % Seg Neutrophils # PT INR APTT Heparin Anti-Xa Level ABG pH 7.303 L ABG pO2 64.6 L ABG HCO3 ABG O2 Saturation 92.9 L ABG Hemoglobin 11.9 L Oxyhemoglobin 90.6 L Sodium Potassium Chloride Carbon Dioxide BUN Creatinine Glucose POC Glucose 211 H 267 H Hemoglobin A1c Calcium Phosphorus Magnesium AST Troponin T NT-Pro-B Natriuret Pep Albumin Triglycerides LDL Cholesterol Direct HDL Cholesterol PTH Intact Urine Creatinine Urine Total Protein 07/04/22 07/04/22 07/05/22 16:51 22:03 07:48 WBC RBC Hgb Hct Plt Count Lymph % (Auto) Shannon % (Auto) Lymph # (Auto) Shannon # (Auto) Seg Neutrophils % Seg Neutrophils # PT INR APTT Heparin Anti-Xa Level ABG pH ABG pO2 ABG HCO3 ABG O2 Saturation ABG Hemoglobin Oxyhemoglobin Sodium Potassium Chloride Carbon Dioxide BUN Creatinine Glucose POC Glucose 273 H 202 H 223 H Hemoglobin A1c Calcium Phosphorus Magnesium AST Troponin T NT-Pro-B Natriuret Pep Albumin Triglycerides LDL Cholesterol Direct HDL Cholesterol PTH Intact Urine Creatinine Urine Total Protein 07/05/22 11:06 WBC RBC Hgb Hct Plt Count Lymph % (Auto) Shannon % (Auto) Lymph # (Auto) Shannon # (Auto) Seg Neutrophils % Seg Neutrophils # PT INR APTT Heparin Anti-Xa Level ABG pH 7.313 L ABG pO2 102.1 H ABG HCO3 27.2 H ABG O2 Saturation ABG Hemoglobin 10.6 L Oxyhemoglobin Sodium Potassium Chloride Carbon Dioxide BUN Creatinine Glucose POC Glucose Hemoglobin A1c Calcium Phosphorus Magnesium AST Troponin T NT-Pro-B Natriuret Pep Albumin Triglycerides LDL Cholesterol Direct HDL Cholesterol PTH Intact Urine Creatinine Urine Total Protein Chest x-ray: image reviewed Allied health notes reviewed: RT
[2022-07-05] MEDS ORDERED: fentaNYL DRIP Premix 1,000 MCG/100 ML BAG IV SCH (14:00)
[2022-07-05] MEDS ORDERED: fentaNYL 100 MCG/2 ML INJ IV ONE (14:00)
[2022-07-05 14:07] LABS: Hematocrit 34.7 % (30.3-42.9); Hemoglobin 11.1 gm/dl (10.1-14.3); Mean Corpuscular HGB Conc 32 % (30-34); Mean Corpuscular Volume 93 fl (79-97); Platelet Count 322 K/mm3 (140-440); Red Blood Count 3.73 M/mm3 (3.65-5.03); Red Cell Distribution Width 14.7 % (13.2-15.2)
[2022-07-05 14:25] LABS: BUN/Creatinine Ratio 18; Blood Urea Nitrogen 16 mg/dL (7-17); Calcium 8.5 mg/dL (8.4-10.2); Hemolysis Index 10
[2022-07-05] MEDS: NICOTINE 21 MG/24 HR PATCH TD SCH (14:39)
[2022-07-05] MEDS: SODIUM BICARBONATE 650 MG TAB FEEDTUBE SCH ×2 (14:40→22:19)
[2022-07-05] MEDS: APIXABAN 5 MG TAB FEEDTUBE SCH ×2 (14:40→22:20)
--- NOTE | 2022-07-05 15:10 | XRay Report ---
CHEST 1 VIEW 07/05/2022 2:03 PM INDICATION / CLINICAL INFORMATION: R arm PICC placement. COMPARISON: 07/05/2022 at 10:30 AM FINDINGS: SUPPORT DEVICES: The right PICC line in adequate placement with tip over the SVC. ET tube and NG tube are stable. HEART / MEDIASTINUM: No significant abnormality. LUNGS / PLEURA: Worsening left lower lobe consolidation/effusion.. No pneumothorax. ADDITIONAL FINDINGS: No significant additional findings. IMPRESSION: 1. Adequate right PICC placement. Stable ETT and NGT. Worsening left lower lung disease. Signer Name: Josh Jimenez MD Signed: 07/05/2022 3:06 PM Workstation Name: [id number]
[2022-07-05 16:11] LABS: Basophils % (Manual) 0 % (0.0-1.8); Eosinophils % (Manual) 0 % (0.0-4.3); Myelocytes # (Manual) 0.2 K/mm3; Total Cells Counted 100
[2022-07-05 16:13] LABS: Platelet Clumps Few; Platelet Estimate Consistent w Auto; RBC Morphology Normal
--- NOTE | 2022-07-05 17:28 | Progress Note ---
Subjective - Reason for Consult Consult date: 07/05/22 Reason for consult: medications management for bipiolar disorder - Chief Complaint Chief complaint: 07/04: Patient was seen today in the context of post-ROSC from [facility] earlier this morning. Patient on mechanical ventilation. Prior to interview, the nurse in room reported patient follows commands and is oriented. Patient was asleep and initially opened her eyes to voice. Patient followed command to raise her thumb once, but did not respond appropriately in response to further questions or commands. Unable to complete interview at this time. 07/03: Patient was seen today. Patient was alert and oriented x3 and cooperative throughout the interview, but gave minimal responses and would occasionally need a question repeated before answering. Patient reports "doing okay." Patient denies depressive or manic symptoms. Patient reports good sleep and appetite. Patient was asked about why she left her bed and did not respond. Patient denies SI HI AVH at this time. 07/02: Patient seen today. Patient alert and oriented x3 and cooperative throughout the interview. Patient reports good mood. Patient denies SI HI AVH. Patient depressive sx or manic symptoms. Patient denies SI HI AVH. Patient reports good appetite and okay sleep. 07/01: Patient seen today. Patient alert and oriented x1 and cooperative throughout the interview. When pt intially asked how she's feeling pt reports "I'm here." When asked again, patient jokes "thirsty." Patient denies depressive sx or manic symptoms. Patient denies SI HI AVH. Patient reports good appetite and okay sleep. 06/30: Patient seen today. Patient reports she feels like she's getting better. Patient requests to get out of her bed and sit in chair at bedside. Patient reports good mood, okay sleep, and good appetite. Patient denies depressive symptoms or manic symptoms. Patient denies SI HI AVH. 06/29: Patient is a 52 year-old female with psychiatric history of bipolar disorder and major depressive disorder. Psych was consulted for adjustment for meds for bipolar d/o in context of DKA. Patient was seen today. Patient was asleep but responsive to voice. Patient was oriented to time and place. Patient reports she's at the hospital because "I fell 2 days ago and couldn't get up." "I was hurting all over my body, I couldn't eat." Patient reports being unsure which psychiatric medications she was taking before arriving at hospital. Patient reports being d/c from lithium 2 weeks ago "because I was having heart problems." Patient reports being started on oxcarbazepine. When asked how patient was feeling, patient reports "I don't know, I can't tell you anything. I'm so sick." Patient denies depressive sx or manic symptoms. Patient denies SI HI AVH. MENTAL STATUS EXAMINATION General Appearance and Behavior: Intubated, disheveled, poor eye contact Cooperation: sedated Psychomotor Behavior: unable to assess Mood: unable to assess Affect and affective range: unable to assess Thought Process: unable to assess Thought Content: unable to assess Speech: patient intubated; unable to assess Suicidal Ideation: unable to assess Homicidal Ideation: unable to assess Hallucination: unable to assess Delusions: unable to assess Impulse Control: unable to assess Insight and Judgment: unable to assess Memory: unable to assess Attention: sedated Orientation: unable to assess ASSESSMENT Bipolar disorder TREATMENT Maintain haldol 5 mg BID Maintain Depakote 250 mg q6h Risks, benefits and alternatives of medications discussed with the patient, questions answered and consent obtained from patient. PSYCHOTHERAPY: Supportive psychotherapy provided MEDICAL: Per primary team DELIRIUM PRECAUTIONS: Please re-orient patient frequently, keep lights on during the day, and minimize benzodiazepines and opiates as these medications could worsen patient's confusion. VIDEOGAME TESTER: Defer to primary DISPOSITION: Do not recommend acute inpatient psychiatric hospitalization at this time. FOLLOW-UP: Will follow Thank you for the consult. Please contact with any questions and/or concerns. Case staffed with Dr. Tatum Ace. Mental Status Exam - Vital signs Last Vital Signs Temp 98.4 F 07/05/22 04:46 Pulse 74 07/05/22 15:45 Resp 0 L 07/05/22 15:45 BP 119/51 07/05/22 15:45 Pulse Ox 100 07/05/22 15:45 Assessment and Plan - Patient Problems (1) Bipolar disorder Current Visit: Yes Status: Acute Qualifiers: Active/Remission status: in partial remission
--- NOTE | 2022-07-05 18:08 | Procedure Note ---
Date of procedure: 07/05/22 Pre-op diagnosis: s/p cardiac arrest, acute hypoxic respiratory failure Post-op diagnosis: same Procedure: Gabe test completed. Ulnar pulse intact. Right radial katie inserted using sterile technique. Area prepped with chlorhexidine and the site was infiltrated with 1ml 1% lidocaine. Arterial line was placed using ultrasound; catheter advanced without difficulty. Line was sutured, biopatch not available and tegaderm dressing applied. Arm boar d not available Arterial waveform observed on bedside monitor. Line flushed and zeroed. RN at bedside. Pt tolerated procedure well. VS remained stable throughout procedure. (time spent placing line not included in daily critical care time) CCT: 60 mins Anesthesia: local Surgeon: LINETTE BOSTON Estimated blood loss: minimal Condition: critical Disposition: ICU
[2022-07-05] MEDS: VALPROIC ACID 250 MG/5 ML ORAL LIQD FEEDTUBE SCH (18:35)
[2022-07-05] MEDS: VASOPRESSIN 20 UNIT in SODIUM CHLORIDE 0.9% 100 ML IV SCH (20:15)
[2022-07-06] MEDS: VALPROIC ACID 250 MG/5 ML ORAL LIQD FEEDTUBE SCH ×4 (02:02→18:19)
[2022-07-06 03:52] LABS: ABG Base Excess 3.6 mmol/L (-2.0-3.0); ABG HCO3 28.9 mmol/L (20.0-26.0); ABG Methemoglobin 0.5 % (0.0-1.5); ABG Oxygen Saturation 98.7 % (95.0-99.0); ABG PCO2 47.3 mm Hg; ABG PH 7.404 pH Units (7.350-7.450); ABG PO2 142.7 mm Hg (80.0-90.0)
--- NOTE | 2022-07-06 04:50 | XRay Report ---
CHEST 1 VIEW INDICATION / CLINICAL INFORMATION: follow up respiratory failure. COMPARISON: 07/05/2022 FINDINGS: SUPPORT DEVICES: Stable, satisfactory device positioning. HEART / MEDIASTINUM: Mild cardiomegaly is stable. LUNGS / PLEURA: There continues to be pleural parenchymal disease throughout the left lower lobe. Rig ht lung is grossly clear. No pneumothorax. ADDITIONAL FINDINGS: No significant additional findings. IMPRESSION: 1. Persistence of left lower lobe pleural-parenchymal disease. No new finding. Signer Name: Melani Meyers MD Signed: 07/06/2022 4:46 AM Workstation Name: Mobile Location, [id number]
[2022-07-06 05:05] LABS: Hematocrit 32.7 % (30.3-42.9); Hemoglobin 10.6 gm/dl (10.1-14.3); Mean Corpuscular HGB Conc 32 % (30-34); Mean Corpuscular Volume 92 fl (79-97); Platelet Count 283 K/mm3 (140-440); Red Blood Count 3.55 M/mm3 (3.65-5.03); Red Cell Distribution Width 14.8 % (13.2-15.2)
[2022-07-06 05:17] LABS: Calcium 8.7 mg/dL (8.4-10.2)
[2022-07-06] MEDS: VASOPRESSIN 20 UNIT in SODIUM CHLORIDE 0.9% 100 ML IV SCH (06:18)
--- NOTE | 2022-07-06 08:42 | Progress Note ---
Assessment and Plan 1. Acute kidney injury: Suspect vasomotor STEFFANIE in the setting of DKA/volume depletion. Renal US negative for hydro/stone. Monitor renal function. Creatinine level is increasing now. Avoid nephrotoxic agents. Meds dosage based on GFR. 2. FEN: Hyperkalemia, improved. Anion-gap Metabolic acidosis, 2/2 DKA, improved, monitor. Replete lytes as needed. Monitor lytes and volume status. 3. S/p Cardiac arrest 07/05: Currently in ICU. Followed by Cards. 4. Resp failure: Currently on MV. 5. A.fib with RVR: SR now. Followed by Cards. 6. DKA: Admits to stop taking meds at home. S/p Insulin drip. Improved. Monitor. 7. Acute DVT involving the external iliac veins bilaterally with thrombus extending distally bilaterally: S/p LE angioplsty Followed by Vascular. 8. Hypertension: Monitor BP. 9. H/o COPD. Subjective: Patient was seen and examined at the bedside. Examination: General appearance: well-developed, obese, appears stated age, intubated, on MV HEENT: atraumatic, no icterus Neck: trachea midline Respiratory: coarse breath sounds heard Heart: S1S2, irregular, no murmur Abdomen: soft, obese, bowel sounds heard, NT Integumentary: no rash on the inspected area Neurologic: opens eyes and moving head Ext: trace Ext and dependent edema Subjective Date of service: 07/06/22 Principal diagnosis: AHRF; DKA; Hyperkalemia; COPD; ? cellulitis; PVD; STEFFANIE; Morbid obesity; ?JACKLYN Objective - Vital Signs Vital signs: Vital Signs - 12hr 07/05/22 07/06/22 07/06/22 23:30 00:00 04:00 Temperature 99.4 F Pulse Rate 62 61 Respiratory 0 L 20 18 Rate Blood Pressure 108/45 115/58 O2 Sat by Pulse 99 99 90 Oximetry - Lab 07/07/22 05:35 07/07/22 05:35 Most recent lab results ABG pH 7.404 pH Units (7.350-7.450) 07/06/22 03:33 ABG pCO2 47.3 mm Hg 07/06/22 03:33 ABG pO2 142.7 mm Hg (80.0-90.0) H 07/06/22 03:33 ABG HCO3 28.9 mmol/L (20.0-26.0) H 07/06/22 03:33 ABG O2 Saturation 98.7 % (95.0-99.0) 07/06/22 03:33 Calcium 8.7 mg/dL (8.4-10.2) 07/06/22 04:00 Phosphorus 2.10 mg/dL (2.5-4.5) L D 07/02/22 08:12 Magnesium 2.00 mg/dL (1.7-2.3) 07/05/22 Unknown Urine Creatinine 85.4 mg/dL (0.1-20.0) H 06/28/22 08:10 Urine Sodium 10 mmol/L 06/28/22 08:10 Urine Total Protein 49 mg/dL (5-11.8) H 06/28/22 08:10 Medications & Allergies - Medications Allergies/Adverse Reactions: Allergies ciprofloxacin [From Cipro] Allergy (Verified 05/28/22 12:07) Unknown Penicillins Allergy (Verified 05/28/22 12:07) Unknown Home Medications: Home Medications Medication Instructions Recorded Confirmed Last Taken Type Apixaban [Eliquis] 5 mg PO BID 04/13/21 06/28/22 Unknown History Empagliflozin [Jardiance] 25 mg DAILY 04/13/21 06/28/22 Unknown History Fenofibrate 160 mg PO DAILY 04/13/21 06/28/22 Unknown History Glimepiride 4 mg BID 04/13/21 06/28/22 Unknown History Insulin Aspart (Nf) [NovoLOG 100 unit SQ PRN PRN 04/13/21 06/28/22 Unknown History Flexpen] Levothyroxine [Synthroid] 112 mcg PO QAM 04/13/21 06/28/22 Unknown History Lisinopril/Hydrochlorothiazide 1 tab PO QDAY 04/13/21 06/28/22 Unknown History [Zestoretic 20-12.5 mg] Lasalle Carbonate 600 mg PO QHS 04/13/21 06/28/22 Unknown History Lasalle Carbonate [Eskalith] 150 mg PO QAM 04/13/21 06/28/22 Unknown History Lurasidone [Latuda] 40 mg QHS 04/13/21 06/28/22 Unknown History Oxybutynin Chloride [Ditropan Xl] 15 mg PO QDAY 04/13/21 06/28/22 Unknown History Semaglutide [Ozempic] 1 unit SQ 1XW 04/13/21 06/28/22 Unknown History Venlafaxine HCl [Venlafaxine HCl 150 mg DAILY 04/13/21 06/28/22 Unknown History ER] buPROPion SR [Wellbutrin SR] 100 mg PO DAILY 04/13/21 06/28/22 Unknown History Doxycycline Hyclate [Doxycycline 100 mg PO Q12HR 7 Days #14 04/14/21 06/28/22 Unknown Rx Hyclate TAB] Active Medications: Generic Name Dose Route Start Last Admin Trade Name Freq PRN Reason Stop Dose Admin Acetaminophen 650 mg 06/28/22 03:09 Acetaminophen 325 Mg Tab PO Q6H PRN Pain MILD(1-3)/Fever >100.5/MURILLO Lipase/Protease/Amylase 1 each 07/05/22 11:00 Lipase 10,500/Protease 25,000/Amylase 43,750 (Units) Dr [place] FEEDTSEVERO PRN PRN For Clogged Feeding Tube Apixaban 5 mg 07/10/22 10:00 Apixaban 5 Mg Tab FEEDTUBE Q12HR SHANTHI Protocol Apixaban 10 mg 07/05/22 12:00 07/05/22 22:20 Apixaban 5 Mg Tab FEEDTUBE 07/09/22 22:01 10 mg Q12HR SHANTHI Administration Protocol Atorvastatin Calcium 40 mg 07/05/22 10:38 07/05/22 22:20 Atorvastatin 40 Mg Tab FEEDTUBE 40 mg QHS SHANTHI Administration Dextrose 50 ml 06/30/22 09:00 Dextrose 50% In Water (25gm) 50 Ml Syringe IV Q30MIN PRN Hypoglycemia Protocol Haloperidol 5 mg 07/05/22 11:00 07/05/22 22:18 Haloperidol 5 Mg Tab FEEDTUBE 5 mg BID SHANTHI Administration Hydrophilic Ointment 1 applic 07/05/22 12:00 Lip Therapy Vaseline TP Q2H PRN Dry Lips Propofol 1,000 mg in 100 mls @ 4.188 mls/hr 07/05/22 10:00 07/06/22 06:13 Diprivan 10 Mg/Ml IV 5 mcg/kg/min TITR SHANTHI 4.188 mls/hr Administration Protocol 5 MCG/KG/MIN Phenylephrine HCl 100 mg/ 250 mls @ 10.47 mls/hr 07/05/22 10:45 07/06/22 06:21 Sodium Chloride IV 0.65 mcg/kg/min TITRATE SHANTHI 13.611 mls/hr Titration Protocol 0.5 MCG/KG/MIN Sodium Chloride 500 mls @ 1 mls/hr 07/05/22 12:00 Nacl 0.9% 500 Ml IV DIRECT PRN ARTERIAL LINE FLUSH Vasopressin 20 unit/ Sodium 101 mls @ 9.09 mls/hr 07/05/22 12:00 07/06/22 06:18 Chloride IV 0.03 units/min TITR SHANTHI 9.09 mls/hr Administration Protocol 0.03 UNITS/MIN Fentanyl Citrate 1,000 mcg in 100 mls @ 2.5 mls/hr 07/05/22 14:00 07/05/22 14:41 Fentanyl Drip Premix IV 25 mcg/hr TITR SHANTHI 2.5 mls/hr Administration Protocol 25 MCG/HR Insulin Human Isoph/Insulin Regular 30 unit 07/05/22 09:00 07/05/22 18:36 Insulin Nph/Regular 70/30 Inj SUB-Q 30 unit BIDDIAB [facility] Administration Insulin Human Regular 8 units 07/01/22 07:35 07/05/22 18:36 Insulin Regular, Human 100 Units/1 Ml SUB-Q 8 units AC SHANTHI Administration Lansoprazole 30 mg 07/06/22 10:00 Lansoprazole 30 Mg Solutab FEEDTUBE QDAY [facility] Levothyroxine Sodium 112 mcg 07/05/22 12:00 07/05/22 12:00 Levothyroxine 112 Mcg Tab FEEDTUBE Not Given QAM [facility] Multi-Ingred Cream/Lotion/Oil/Oint 1 applic 07/05/22 11:00 Mineral Oil/Petrolatum, White Ophth Oint 3.5 Gm OU Q4H PRN Dry Eye(s) Nicotine 21 mg 07/04/22 15:00 07/05/22 14:39 Nicotine 21 Mg/24 Hr Patch TD 21 mg QDAY [facility] Administration Ondansetron HCl 4 mg 06/28/22 03:09 06/28/22 05:44 Ondansetron 4 Mg/2 Ml Inj IV 4 mg Q8H PRN Administration Nausea And Vomiting Senna/Docusate Sodium 1 tab 07/05/22 11:00 07/05/22 22:20 Sennosides/Docusate Sodium 8.6/50 Mg Tab FEEDTUBE 1 tab BID SHANTHI Administration Simple Syrup 15 ml 07/05/22 11:00 Simple Syrup 15 Ml FEEDTUBE PRN PRN Hypoglycemia Simple Syrup 30 ml 07/05/22 11:00 Simple Syrup 15 Ml FEEDTUBE PRN PRN Hypoglycemia Sodium Bicarbonate 325 mg 07/05/22 10:26 Sodium Bicarbonate 325 Mg Tab FEEDTUBE PRN PRN For Clogged Feeding Tube Sodium Bicarbonate 1,300 mg 07/05/22 14:00 07/05/22 22:19 Sodium Bicarbonate 650 Mg Tab FEEDTUBE 1,300 mg TID SHANTHI Administration Sodium Chloride 10 ml 06/28/22 10:00 07/04/22 22:44 Sodium Chloride 0.9% 10 Ml Flush Syringe IV 10 ml BID SHANTHI Administration Sodium Chloride 10 ml 06/28/22 03:09 Sodium Chloride 0.9% 10 Ml Flush Syringe IV PRN PRN LINE FLUSH Valproic Acid 250 mg 07/05/22 18:00 07/06/22 06:13 Valproic Acid 250 Mg/5 Ml Oral Liqd FEEDTUBE 250 mg Q6HR SHANTHI Administration
[2022-07-06] MEDS: NICOTINE 21 MG/24 HR PATCH TD SCH (09:39)
[2022-07-06] MEDS: INSULIN REGULAR, HUMAN 100 UNITS/1 ML SUB-Q SCH ×3 (09:40→18:19)
[2022-07-06] MEDS: SENNOSIDES/DOCUSATE SODIUM 8.6/50 MG TAB FEEDTUBE SCH ×2 (09:40→21:10)
[2022-07-06] MEDS: LANSOPRAZOLE 30 MG SOLUTAB FEEDTUBE SCH (09:40)
[2022-07-06] MEDS: LEVOTHYROXINE 112 MCG TAB FEEDTUBE SCH (09:40)
[2022-07-06] MEDS: SODIUM BICARBONATE 650 MG TAB FEEDTUBE SCH (09:40)
[2022-07-06] MEDS: APIXABAN 5 MG TAB FEEDTUBE SCH ×2 (09:40→21:10)
[2022-07-06] MEDS: HALOPERIDOL 5 MG TAB FEEDTUBE SCH ×2 (09:42→21:10)
[2022-07-06] MEDS: INSULIN NPH/REGULAR 70/30 INJ SUB-Q SCH ×3 (09:42→21:14)
--- NOTE | 2022-07-06 09:56 | Progress Note ---
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 Non-insulin dependent type II diabetes mellitus with hyperglycemia Hypertension Hyperlipidemia Hypothyroidism H/O COPD Bipolar Disorder Tobacco use disorder/Nicotine dependence Morbid obesity Cultures pending, give one dose of Vancomycin and Cefepime Can discontinue oral bicarbonate and monitor acidosis Await further vascular recommendations, she has preserved EF with right heart s train on surface echocardiogram -Titrate supplemental oxygen to keep SpO2 89-92% -VAP bundle addressed, aspiration precautions HOB>30 -Stress ulcer prophylaxis- Famotidine -VTE prophylaxis-on therapeutic Apixaban -Titrate Propofol to keep RASS 0 to -1 -Prn Fentanyl for analgesia, titrate to CPOT >3 -Daily SBT and SAT trials as tolerated, daily assessment for readiness to wean -ABG and CXR as clinically indicated -Enteric nutrition support, tube feeding -Mobility, off loading and frequent turning per facility protocol to prevent pressure ulcers -Trend temperature curve and WCC -Maintain euglycemia. Keep blood glucose 140-180mg/dL while critically ill. Avoid hypoglycemia -Monitor hemodynamics closely -Supportive transfusions as clinically indicated to keep HgB >7g/dL -Can continue Nicotine patch and nicotine withdrawal precautions -Avoid nephrotxins, recent recovery from STEFFANIE/ATN -PICC for vasoactive drug administration Discussed with respiratory care, nursing care and clinical pharmacist. CONDITION: CRITICAL PROGNOSIS: GUARDED CODE STATUS: FULL CODE The high probability of a clinically significant, sudden or life threatening deterioration of the [multiple] system(s) required my full and direct attention, intervention and personal management. The aggregate critical care time was [35] minutes. This time is in addition to time spent performing reported procedures but includes the following: [x] Data Review and interpretation [x] Patient assessment and monitoring of vital signs [x] Documentation [x] Medication orders and management Subjective Date of service: 07/06/22 Principal diagnosis: AHRF; DKA; Hyperkalemia; COPD; ? cellulitis; PVD; STEFFANIE; Morbid obesity; ?JACKLYN Interval history: Patient is seen today for: Acute hypoxemic respiratory failure; DKA; Hyperkalemi a; COPD; Possible cellulitis; PVD; STEFFANIE; Morbid obesity Seen and examined at bedside; 24hour events reviewed; nursing and respiratory care staff consulted; no adverse overnight events reported to me; s/p cardiac arrest ,asystole with ROSC. Intubated on MVS Off Propofol, Obeying some simple commands. Off Neosynephrine and Vasopressin Fevers Tmax 101.8 with ongoing leukocytosis, cultures pending Objective Vital Signs - 12hr 07/05/22 07/06/22 07/06/22 23:30 00:00 04:00 Temperature 99.4 F Pulse Rate 62 61 Respiratory 0 L 20 18 Rate Blood Pressure 108/45 115/58 O2 Sat by Pulse 99 99 90 Oximetry Constitutional: no acute distress, other (orally intubated) Eyes: non-icteric ENT: oropharynx moist Neck: supple, no lymphadenopathy, no JVD, other (large circumference) Effort: mildly labored Ascultation: Bilateral: clear, diminished breath sounds Percussion: Bilateral: not dull Cardiovascular: regular rate and rhythm, other (S1S2) Gastrointestinal: normoactive bowel sounds, non-tender, tender, non-distended Integumentary: rash (shins), other (erythema to shins) Extremities: no cyanosis, pink and warm, no ischemia or petechiae, edema (trace to 1+) Neurologic: non-focal exam (grossly), pupils equal and round CBC and BMP: 07/07/22 05:35 07/07/22 05:35 ABG, PT/INR, D-dimer: ABG ABG pH 7.404 pH Units (7.350-7.450) 07/06/22 03:33 ABG pCO2 47.3 mm Hg 07/06/22 03:33 ABG pO2 142.7 mm Hg (80.0-90.0) H 07/06/22 03:33 ABG O2 Saturation 98.7 % (95.0-99.0) 07/06/22 03:33 PT/INR, D-dimer PT 17.3 Sec. (12.2-14.9) H 07/02/22 20:28 INR 1.26 (0.87-1.13) H 07/02/22 20:28 Abnormal lab findings: Abnormal Labs 06/27/22 06/27/22 06/27/22 20:48 20:48 23:56 WBC 18.7 H RBC Hgb 15.1 H Hct 47.1 H Plt Count Lymph % (Auto) 6.3 L Loving % (Auto) Lymph # (Auto) Loving # (Auto) 0.9 H Seg Neutrophils % 88.6 H Seg Neuts % (Manual) Lymphocytes % (Manual) Seg Neutrophils # 16.5 H Seg Neutrophils # Man Lymphocytes # (Manual) PT INR APTT Heparin Anti-Xa Level ABG pH ABG pO2 ABG HCO3 ABG O2 Saturation ABG Base Excess ABG Hemoglobin Oxyhemoglobin Sodium 123 L 121 L Potassium 6.9 H* 6.4 H* Chloride 82.4 L 79.7 L Carbon Dioxide 7 L* 8 L* BUN 50 H 54 H Creatinine 2.2 H 2.5 H Glucose 578 H* 562 H* POC Glucose Hemoglobin A1c Calcium Phosphorus 10.40 H Magnesium 2.70 H 2.60 H AST 50 H Troponin T 0.080 H NT-Pro-B Natriuret Pep 4137 H Albumin 3.1 L Triglycerides 349 H LDL Cholesterol Direct 37 L HDL Cholesterol 38 L PTH Intact Urine Creatinine Urine Total Protein 06/28/22 06/28/22 06/28/22 01:45 03:17 03:35 WBC RBC Hgb Hct Plt Count Lymph % (Auto) Loving % (Auto) Lymph # (Auto) Loving # (Auto) Seg Neutrophils % Seg Neuts % (Manual) Lymphocytes % (Manual) Seg Neutrophils # Seg Neutrophils # Man Lymphocytes # (Manual) PT INR APTT Heparin Anti-Xa Level ABG pH ABG pO2 ABG HCO3 ABG O2 Saturation ABG Base Excess ABG Hemoglobin Oxyhemoglobin Sodium 120 L 121 L Potassium 6.2 H* 5.4 H Chloride 79.1 L 84.7 L Carbon Dioxide 7 L* 7 L* BUN 55 H 57 H Creatinine 2.6 H 2.6 H Glucose 551 H* 486 H POC Glucose 568 H Hemoglobin A1c Calcium 8.1 L 7.7 L Phosphorus Magnesium AST Troponin T NT-Pro-B Natriuret Pep Albumin Triglycerides LDL Cholesterol Direct HDL Cholesterol PTH Intact Urine Creatinine Urine Total Protein 06/28/22 06/28/22 06/28/22 03:35 04:05 05:13 WBC RBC Hgb Hct Plt Count Lymph % (Auto) Loving % (Auto) Lymph # (Auto) Loving # (Auto) Seg Neutrophils % Seg Neuts % (Manual) Lymphocytes % (Manual) Seg Neutrophils # Seg Neutrophils # Man Lymphocytes # (Manual) PT INR APTT Heparin Anti-Xa Level ABG pH ABG pO2 ABG HCO3 ABG O2 Saturation ABG Base Excess ABG Hemoglobin Oxyhemoglobin Sodium Potassium Chloride Carbon Dioxide BUN Creatinine Glucose POC Glucose 508 H 443 H Hemoglobin A1c Calcium Phosphorus 9.20 H Magnesium AST Troponin T NT-Pro-B Natriuret Pep Albumin Triglycerides LDL Cholesterol Direct HDL Cholesterol PTH Intact Urine Creatinine Urine Total Protein 06/28/22 06/28/22 06/28/22 05:40 06:30 07:39 WBC RBC Hgb Hct Plt Count Lymph % (Auto) Loving % (Auto) Lymph # (Auto) Loving # (Auto) Seg Neutrophils % Seg Neuts % (Manual) Lymphocytes % (Manual) Seg Neutrophils # Seg Neutrophils # Man Lymphocytes # (Manual) PT INR APTT Heparin Anti-Xa Level ABG pH ABG pO2 ABG HCO3 ABG O2 Saturation ABG Base Excess ABG Hemoglobin Oxyhemoglobin Sodium 124 L Potassium 5.1 H Chloride 86.5 L Carbon Dioxide 13 L BUN 59 H Creatinine 2.6 H Glucose 396 H POC Glucose 419 H 377 H Hemoglobin A1c Calcium 8.0 L Phosphorus Magnesium AST Troponin T NT-Pro-B Natriuret Pep Albumin Triglycerides LDL Cholesterol Direct HDL Cholesterol PTH Intact Urine Creatinine Urine Total Protein 06/28/22 06/28/22 06/28/22 08:10 08:18 09:32 WBC RBC Hgb Hct Plt Count Lymph % (Auto) Loving % (Auto) Lymph # (Auto) Loving # (Auto) Seg Neutrophils % Seg Neuts % (Manual) Lymphocytes % (Manual) Seg Neutrophils # Seg Neutrophils # Man Lymphocytes # (Manual) PT INR APTT Heparin Anti-Xa Level ABG pH ABG pO2 ABG HCO3 ABG O2 Saturation ABG Base Excess ABG Hemoglobin Oxyhemoglobin Sodium Potassium Chloride Carbon Dioxide BUN Creatinine Glucose POC Glucose 390 H 347 H Hemoglobin A1c Calcium Phosphorus Magnesium AST Troponin T NT-Pro-B Natriuret Pep Albumin Triglycerides LDL Cholesterol Direct HDL Cholesterol PTH Intact Urine Creatinine 85.4 H Urine Total Protein 49 H 06/28/22 06/28/22 06/28/22 10:46 11:40 12:40 WBC RBC Hgb Hct Plt Count Lymph % (Auto) Loving % (Auto) Lymph # (Auto) Loving # (Auto) Seg Neutrophils % Seg Neuts % (Manual) Lymphocytes % (Manual) Seg Neutrophils # Seg Neutrophils # Man Lymphocytes # (Manual) PT INR APTT Heparin Anti-Xa Level ABG pH ABG pO2 ABG HCO3 ABG O2 Saturation ABG Base Excess ABG Hemoglobin Oxyhemoglobin Sodium Potassium Chloride Carbon Dioxide BUN Creatinine Glucose POC Glucose 313 H 274 H 258 H Hemoglobin A1c Calcium Phosphorus Magnesium AST Troponin T NT-Pro-B Natriuret Pep Albumin Triglycerides LDL Cholesterol Direct HDL Cholesterol PTH Intact Urine Creatinine Urine Total Protein 06/28/22 06/28/22 06/28/22 13:38 14:13 14:13 WBC 19.7 H RBC 5.33 H Hgb 16.2 H Hct 49.4 H Plt Count Lymph % (Auto) Loving % (Auto) Lymph # (Auto) Loving # (Auto) Seg Neutrophils % Seg Neuts % (Manual) Lymphocytes % (Manual) Seg Neutrophils # Seg Neutrophils # Man Lymphocytes # (Manual) PT INR APTT Heparin Anti-Xa Level ABG pH ABG pO2 ABG HCO3 ABG O2 Saturation ABG Base Excess ABG Hemoglobin Oxyhemoglobin Sodium 125 L Potassium 5.4 H Chloride 87.6 L Carbon Dioxide 18 L BUN 58 H Creatinine 2.5 H Glucose 199 H POC Glucose 205 H Hemoglobin A1c Calcium Phosphorus 6.90 H D Magnesium AST Troponin T NT-Pro-B Natriuret Pep Albumin Triglycerides LDL Cholesterol Direct HDL Cholesterol PTH Intact Urine Creatinine Urine Total Protein 06/28/22 06/28/22 06/28/22 14:56 15:07 15:07 WBC RBC Hgb 15.5 H Hct 46.8 H Plt Count Lymph % (Auto) Loving % (Auto) Lymph # (Auto) Loving # (Auto) Seg Neutrophils % Seg Neuts % (Manual) Lymphocytes % (Manual) Seg Neutrophils # Seg Neutrophils # Man Lymphocytes # (Manual) PT INR APTT Heparin Anti-Xa Level ABG pH ABG pO2 ABG HCO3 ABG O2 Saturation ABG Base Excess ABG Hemoglobin Oxyhemoglobin Sodium 128 L Potassium 5.3 H Chloride 94.0 L Carbon Dioxide 14 L BUN 59 H Creatinine 2.4 H Glucose 183 H POC Glucose 194 H Hemoglobin A1c Calcium 7.8 L Phosphorus Magnesium AST Troponin T NT-Pro-B Natriuret Pep Albumin Triglycerides LDL Cholesterol Direct HDL Cholesterol PTH Intact Urine Creatinine Urine Total Protein 06/28/22 06/28/22 06/28/22 15:07 15:54 17:10 WBC RBC Hgb Hct Plt Count Lymph % (Auto) Loving % (Auto) Lymph # (Auto) Loving # (Auto) Seg Neutrophils % Seg Neuts % (Manual) Lymphocytes % (Manual) Seg Neutrophils # Seg Neutrophils # Man Lymphocytes # (Manual) PT 19.6 H INR 1.47 H APTT Heparin Anti-Xa Level ABG pH ABG pO2 ABG HCO3 ABG O2 Saturation ABG Base Excess ABG Hemoglobin Oxyhemoglobin Sodium Potassium Chloride Carbon Dioxide BUN Creatinine Glucose POC Glucose 189 H 216 H Hemoglobin A1c Calcium Phosphorus Magnesium AST Troponin T NT-Pro-B Natriuret Pep Albumin Triglycerides LDL Cholesterol Direct HDL Cholesterol PTH Intact Urine Creatinine Urine Total Protein 06/28/22 06/28/22 06/28/22 17:59 18:54 19:49 WBC RBC Hgb Hct Plt Count Lymph % (Auto) Loving % (Auto) Lymph # (Auto) Loving # (Auto) Seg Neutrophils % Seg Neuts % (Manual) Lymphocytes % (Manual) Seg Neutrophils # Seg Neutrophils # Man Lymphocytes # (Manual) PT INR APTT Heparin Anti-Xa Level ABG pH ABG pO2 ABG HCO3 ABG O2 Saturation ABG Base Excess ABG Hemoglobin Oxyhemoglobin Sodium Potassium Chloride Carbon Dioxide BUN Creatinine Glucose POC Glucose 195 H 178 H 166 H Hemoglobin A1c Calcium Phosphorus Magnesium AST Troponin T NT-Pro-B Natriuret Pep Albumin Triglycerides LDL Cholesterol Direct HDL Cholesterol PTH Intact Urine Creatinine Urine Total Protein 06/28/22 06/28/22 06/28/22 20:31 20:31 20:31 WBC RBC Hgb Hct Plt Count Lymph % (Auto) Loving % (Auto) Lymph # (Auto) Loving # (Auto) Seg Neutrophils % Seg Neuts % (Manual) Lymphocytes % (Manual) Seg Neutrophils # Seg Neutrophils # Man Lymphocytes # (Manual) PT INR APTT Heparin Anti-Xa Level 0.19 L ABG pH ABG pO2 ABG HCO3 ABG O2 Saturation ABG Base Excess ABG Hemoglobin Oxyhemoglobin Sodium 129 L Potassium 5.1 H Chloride 95.6 L Carbon Dioxide 15 L BUN 59 H Creatinine 2.4 H Glucose 145 H POC Glucose Hemoglobin A1c 9.7 H Calcium 8.0 L Phosphorus 6.40 H Magnesium AST Troponin T NT-Pro-B Natriuret Pep Albumin Triglycerides LDL Cholesterol Direct HDL Cholesterol PTH Intact Urine Creatinine Urine Total Protein 06/28/22 06/28/22 06/28/22 21:27 22:22 23:36 WBC RBC Hgb Hct Plt Count Lymph % (Auto) Loving % (Auto) Lymph # (Auto) Loving # (Auto) Seg Neutrophils % Seg Neuts % (Manual) Lymphocytes % (Manual) Seg Neutrophils # Seg Neutrophils # Man Lymphocytes # (Manual) PT INR APTT Heparin Anti-Xa Level ABG pH ABG pO2 ABG HCO3 ABG O2 Saturation ABG Base Excess ABG Hemoglobin Oxyhemoglobin Sodium Potassium Chloride Carbon Dioxide BUN Creatinine Glucose POC Glucose 131 H 148 H 146 H Hemoglobin A1c Calcium Phosphorus Magnesium AST Troponin T NT-Pro-B Natriuret Pep Albumin Triglycerides LDL Cholesterol Direct HDL Cholesterol PTH Intact Urine Creatinine Urine Total Protein 06/29/22 06/29/22 06/29/22 00:21 01:27 02:54 WBC RBC Hgb Hct Plt Count Lymph % (Auto) Loving % (Auto) Lymph # (Auto) Loving # (Auto) Seg Neutrophils % Seg Neuts % (Manual) Lymphocytes % (Manual) Seg Neutrophils # Seg Neutrophils # Man Lymphocytes # (Manual) PT INR APTT Heparin Anti-Xa Level ABG pH ABG pO2 ABG HCO3 ABG O2 Saturation ABG Base Excess ABG Hemoglobin Oxyhemoglobin Sodium Potassium Chloride Carbon Dioxide BUN Creatinine Glucose POC Glucose 149 H 172 H 172 H Hemoglobin A1c Calcium Phosphorus Magnesium AST Troponin T NT-Pro-B Natriuret Pep Albumin Triglycerides LDL Cholesterol Direct HDL Cholesterol PTH Intact Urine Creatinine Urine Total Protein 06/29/22 06/29/22 06/29/22 04:05 04:21 04:21 WBC 17.1 H RBC Hgb 14.6 H Hct 43.9 H Plt Count Lymph % (Auto) Loving % (Auto) Lymph # (Auto) Loving # (Auto) Seg Neutrophils % Seg Neuts % (Manual) Lymphocytes % (Manual) Seg Neutrophils # Seg Neutrophils # Man Lymphocytes # (Manual) PT INR APTT Heparin Anti-Xa Level ABG pH ABG pO2 ABG HCO3 ABG O2 Saturation ABG Base Excess ABG Hemoglobin Oxyhemoglobin Sodium 129 L Potassium Chloride 97.6 L Carbon Dioxide 15 L BUN 59 H Creatinine 2.1 H Glucose 140 H POC Glucose 167 H Hemoglobin A1c Calcium 8.0 L Phosphorus Magnesium AST Troponin T NT-Pro-B Natriuret Pep Albumin Triglycerides LDL Cholesterol Direct HDL Cholesterol PTH Intact Urine Creatinine Urine Total Protein 06/29/22 06/29/22 06/29/22 04:21 06:27 07:31 WBC RBC Hgb Hct Plt Count Lymph % (Auto) Loving % (Auto) Lymph # (Auto) Loving # (Auto) Seg Neutrophils % Seg Neuts % (Manual) Lymphocytes % (Manual) Seg Neutrophils # Seg Neutrophils # Man Lymphocytes # (Manual) PT INR APTT Heparin Anti-Xa Level ABG pH ABG pO2 ABG HCO3 ABG O2 Saturation ABG Base Excess ABG Hemoglobin Oxyhemoglobin Sodium Potassium Chloride Carbon Dioxide BUN Creatinine Glucose POC Glucose 138 H 142 H Hemoglobin A1c Calcium Phosphorus Magnesium AST Troponin T NT-Pro-B Natriuret Pep Albumin Triglycerides LDL Cholesterol Direct HDL Cholesterol PTH Intact 382.4 H Urine Creatinine Urine Total Protein 06/29/22 06/29/22 06/29/22 08:33 09:28 10:35 WBC RBC Hgb Hct Plt Count Lymph % (Auto) Loving % (Auto) Lymph # (Auto) Loving # (Auto) Seg Neutrophils % Seg Neuts % (Manual) Lymphocytes % (Manual) Seg Neutrophils # Seg Neutrophils # Man Lymphocytes # (Manual) PT INR APTT Heparin Anti-Xa Level ABG pH ABG pO2 ABG HCO3 ABG O2 Saturation ABG Base Excess ABG Hemoglobin Oxyhemoglobin Sodium Potassium Chloride Carbon Dioxide BUN Creatinine Glucose POC Glucose 141 H 167 H 152 H Hemoglobin A1c Calcium Phosphorus Magnesium AST Troponin T NT-Pro-B Natriuret Pep Albumin Triglycerides LDL Cholesterol Direct HDL Cholesterol PTH Intact Urine Creatinine Urine Total Protein 06/29/22 06/29/22 06/29/22 10:47 11:30 12:33 WBC RBC Hgb Hct Plt Count Lymph % (Auto) Loving % (Auto) Lymph # (Auto) Loving # (Auto) Seg Neutrophils % Seg Neuts % (Manual) Lymphocytes % (Manual) Seg Neutrophils # Seg Neutrophils # Man Lymphocytes # (Manual) PT INR APTT Heparin Anti-Xa Level ABG pH ABG pO2 ABG HCO3 ABG O2 Saturation ABG Base Excess ABG Hemoglobin Oxyhemoglobin Sodium 131 L Potassium Chloride 94.4 L Carbon Dioxide 15 L BUN 59 H Creatinine 2.2 H Glucose 149 H POC Glucose 134 H 146 H Hemoglobin A1c Calcium Phosphorus 5.80 H Magnesium AST Troponin T NT-Pro-B Natriuret Pep Albumin Triglycerides LDL Cholesterol Direct HDL Cholesterol PTH Intact Urine Creatinine Urine Total Protein 06/29/22 06/29/22 06/29/22 13:28 14:33 15:49 WBC RBC Hgb Hct Plt Count Lymph % (Auto) Loving % (Auto) Lymph # (Auto) Loving # (Auto) Seg Neutrophils % Seg Neuts % (Manual) Lymphocytes % (Manual) Seg Neutrophils # Seg Neutrophils # Man Lymphocytes # (Manual) PT INR APTT Heparin Anti-Xa Level ABG pH ABG pO2 ABG HCO3 ABG O2 Saturation ABG Base Excess ABG Hemoglobin Oxyhemoglobin Sodium Potassium Chloride Carbon Dioxide BUN Creatinine Glucose POC Glucose 170 H 188 H 155 H Hemoglobin A1c Calcium Phosphorus Magnesium AST Troponin T NT-Pro-B Natriuret Pep Albumin Triglycerides LDL Cholesterol Direct HDL Cholesterol PTH Intact Urine Creatinine Urine Total Protein 06/29/22 06/29/22 06/29/22 16:14 16:14 16:45 WBC RBC Hgb Hct Plt Count Lymph % (Auto) Loving % (Auto) Lymph # (Auto) Loving # (Auto) Seg Neutrophils % Seg Neuts % (Manual) Lymphocytes % (Manual) Seg Neutrophils # Seg Neutrophils # Man Lymphocytes # (Manual) PT INR APTT Heparin Anti-Xa Level 0.19 L ABG pH ABG pO2 ABG HCO3 ABG O2 Saturation ABG Base Excess ABG Hemoglobin Oxyhemoglobin Sodium 128 L Potassium Chloride 95.8 L Carbon Dioxide 15 L BUN 52 H Creatinine 1.8 H Glucose 138 H POC Glucose 135 H Hemoglobin A1c Calcium 7.9 L Phosphorus Magnesium AST Troponin T NT-Pro-B Natriuret Pep Albumin Triglycerides LDL Cholesterol Direct HDL Cholesterol PTH Intact Urine Creatinine Urine Total Protein 06/29/22 06/29/22 06/29/22 17:47 18:52 20:14 WBC RBC Hgb Hct Plt Count Lymph % (Auto) Loving % (Auto) Lymph # (Auto) Loving # (Auto) Seg Neutrophils % Seg Neuts % (Manual) Lymphocytes % (Manual) Seg Neutrophils # Seg Neutrophils # Man Lymphocytes # (Manual) PT INR APTT Heparin Anti-Xa Level ABG pH ABG pO2 ABG HCO3 ABG O2 Saturation ABG Base Excess ABG Hemoglobin Oxyhemoglobin Sodium Potassium Chloride Carbon Dioxide BUN Creatinine Glucose POC Glucose 150 H 123 H 155 H Hemoglobin A1c Calcium Phosphorus Magnesium AST Troponin T NT-Pro-B Natriuret Pep Albumin Triglycerides LDL Cholesterol Direct HDL Cholesterol PTH Intact Urine Creatinine Urine Total Protein 06/29/22 06/29/22 06/29/22 20:17 21:11 21:53 WBC RBC Hgb Hct Plt Count Lymph % (Auto) Loving % (Auto) Lymph # (Auto) Loving # (Auto) Seg Neutrophils % Seg Neuts % (Manual) Lymphocytes % (Manual) Seg Neutrophils # Seg Neutrophils # Man Lymphocytes # (Manual) PT INR APTT Heparin Anti-Xa Level ABG pH ABG pO2 ABG HCO3 ABG O2 Saturation ABG Base Excess ABG Hemoglobin Oxyhemoglobin Sodium 131 L Potassium 5.5 H D Chloride Carbon Dioxide 15 L BUN 56 H Creatinine 2.0 H Glucose 146 H POC Glucose 152 H 165 H Hemoglobin A1c Calcium Phosphorus 5.20 H Magnesium AST Troponin T NT-Pro-B Natriuret Pep Albumin Triglycerides LDL Cholesterol Direct HDL Cholesterol PTH Intact Urine Creatinine Urine Total Protein 06/29/22 06/30/22 06/30/22 23:07 00:18 00:58 WBC RBC Hgb Hct Plt Count Lymph % (Auto) Loving % (Auto) Lymph # (Auto) Loving # (Auto) Seg Neutrophils % Seg Neuts % (Manual) Lymphocytes % (Manual) Seg Neutrophils # Seg Neutrophils # Man Lymphocytes # (Manual) PT INR APTT Heparin Anti-Xa Level ABG pH ABG pO2 ABG HCO3 ABG O2 Saturation ABG Base Excess ABG Hemoglobin Oxyhemoglobin Sodium Potassium Chloride Carbon Dioxide BUN Creatinine Glucose POC Glucose 163 H 178 H 189 H Hemoglobin A1c Calcium Phosphorus Magnesium AST Troponin T NT-Pro-B Natriuret Pep Albumin Triglycerides LDL Cholesterol Direct HDL Cholesterol PTH Intact Urine Creatinine Urine Total Protein 06/30/22 06/30/22 06/30/22 01:57 02:59 03:53 WBC RBC Hgb Hct Plt Count Lymph % (Auto) Loving % (Auto) Lymph # (Auto) Loving # (Auto) Seg Neutrophils % Seg Neuts % (Manual) Lymphocytes % (Manual) Seg Neutrophils # Seg Neutrophils # Man Lymphocytes # (Manual) PT INR APTT Heparin Anti-Xa Level ABG pH ABG pO2 ABG HCO3 ABG O2 Saturation ABG Base Excess ABG Hemoglobin Oxyhemoglobin Sodium Potassium Chloride Carbon Dioxide BUN Creatinine Glucose POC Glucose 150 H 147 H 122 H Hemoglobin A1c Calcium Phosphorus Magnesium AST Troponin T NT-Pro-B Natriuret Pep Albumin Triglycerides LDL Cholesterol Direct HDL Cholesterol PTH Intact Urine Creatinine Urine Total Protein 06/30/22 06/30/22 06/30/22 04:56 05:25 05:52 WBC RBC Hgb Hct Plt Count Lymph % (Auto) Loving % (Auto) Lymph # (Auto) Loving # (Auto) Seg Neutrophils % Seg Neuts % (Manual) Lymphocytes % (Manual) Seg Neutrophils # Seg Neutrophils # Man Lymphocytes # (Manual) PT INR APTT Heparin Anti-Xa Level ABG pH ABG pO2 ABG HCO3 ABG O2 Saturation ABG Base Excess ABG Hemoglobin Oxyhemoglobin Sodium 132 L Potassium Chloride Carbon Dioxide 15 L BUN 53 H Creatinine 1.7 H Glucose 137 H POC Glucose 110 H 150 H Hemoglobin A1c Calcium Phosphorus Magnesium AST Troponin T NT-Pro-B Natriuret Pep Albumin Triglycerides LDL Cholesterol Direct HDL Cholesterol PTH Intact Urine Creatinine Urine Total Protein 06/30/22 06/30/22 06/30/22 07:25 08:20 09:20 WBC RBC Hgb Hct Plt Count Lymph % (Auto) Loving % (Auto) Lymph # (Auto) Loving # (Auto) Seg Neutrophils % Seg Neuts % (Manual) Lymphocytes % (Manual) Seg Neutrophils # Seg Neutrophils # Man Lymphocytes # (Manual) PT INR APTT Heparin Anti-Xa Level ABG pH ABG pO2 ABG HCO3 ABG O2 Saturation ABG Base Excess ABG Hemoglobin Oxyhemoglobin Sodium Potassium Chloride Carbon Dioxide BUN Creatinine Glucose POC Glucose 133 H 119 H 128 H Hemoglobin A1c Calcium Phosphorus Magnesium AST Troponin T NT-Pro-B Natriuret Pep Albumin Triglycerides LDL Cholesterol Direct HDL Cholesterol PTH Intact Urine Creatinine Urine Total Protein 06/30/22 06/30/22 06/30/22 10:21 10:59 11:25 WBC RBC Hgb Hct Plt Count Lymph % (Auto) Loving % (Auto) Lymph # (Auto) Loving # (Auto) Seg Neutrophils % Seg Neuts % (Manual) Lymphocytes % (Manual) Seg Neutrophils # Seg Neutrophils # Man Lymphocytes # (Manual) PT INR APTT Heparin Anti-Xa Level ABG pH ABG pO2 ABG HCO3 ABG O2 Saturation ABG Base Excess ABG Hemoglobin Oxyhemoglobin Sodium 132 L Potassium Chloride Carbon Dioxide 16 L BUN 49 H Creatinine 1.7 H Glucose 168 H POC Glucose 133 H 232 H Hemoglobin A1c Calcium 8.1 L Phosphorus Magnesium AST Troponin T NT-Pro-B Natriuret Pep Albumin Triglycerides LDL Cholesterol Direct HDL Cholesterol PTH Intact Urine Creatinine Urine Total Protein 06/30/22 06/30/22 07/01/22 16:15 21:30 05:10 WBC RBC Hgb Hct Plt Count Lymph % (Auto) Loving % (Auto) Lymph # (Auto) Loving # (Auto) Seg Neutrophils % Seg Neuts % (Manual) Lymphocytes % (Manual) Seg Neutrophils # Seg Neutrophils # Man Lymphocytes # (Manual) PT INR APTT Heparin Anti-Xa Level 0.24 L ABG pH ABG pO2 ABG HCO3 ABG O2 Saturation ABG Base Excess ABG Hemoglobin Oxyhemoglobin Sodium Potassium Chloride Carbon Dioxide BUN Creatinine Glucose POC Glucose 325 H 279 H Hemoglobin A1c Calcium Phosphorus Magnesium AST Troponin T NT-Pro-B Natriuret Pep Albumin Triglycerides LDL Cholesterol Direct HDL Cholesterol PTH Intact Urine Creatinine Urine Total Protein 07/01/22 07/01/22 07/01/22 05:10 07:38 09:13 WBC RBC Hgb Hct Plt Count Lymph % (Auto) Loving % (Auto) Lymph # (Auto) Loving # (Auto) Seg Neutrophils % Seg Neuts % (Manual) Lymphocytes % (Manual) Seg Neutrophils # Seg Neutrophils # Man Lymphocytes # (Manual) PT 15.9 H INR 1.14 H APTT Heparin Anti-Xa Level ABG pH ABG pO2 ABG HCO3 ABG O2 Saturation ABG Base Excess ABG Hemoglobin Oxyhemoglobin Sodium 132 L Potassium Chloride 97.8 L Carbon Dioxide 19 L BUN 34 H Creatinine 1.3 H Glucose 250 H POC Glucose 235 H Hemoglobin A1c Calcium Phosphorus Magnesium AST Troponin T NT-Pro-B Natriuret Pep Albumin Triglycerides LDL Cholesterol Direct HDL Cholesterol PTH Intact Urine Creatinine Urine Total Protein 07/01/22 07/01/22 07/01/22 12:03 13:42 16:32 WBC RBC Hgb Hct Plt Count Lymph % (Auto) Loving % (Auto) Lymph # (Auto) Loving # (Auto) Seg Neutrophils % Seg Neuts % (Manual) Lymphocytes % (Manual) Seg Neutrophils # Seg Neutrophils # Man Lymphocytes # (Manual) PT INR APTT Heparin Anti-Xa Level 0.25 L ABG pH ABG pO2 ABG HCO3 ABG O2 Saturation ABG Base Excess ABG Hemoglobin Oxyhemoglobin Sodium Potassium Chloride Carbon Dioxide BUN Creatinine Glucose POC Glucose 272 H 316 H Hemoglobin A1c Calcium Phosphorus Magnesium AST Troponin T NT-Pro-B Natriuret Pep Albumin Triglycerides LDL Cholesterol Direct HDL Cholesterol PTH Intact Urine Creatinine Urine Total Protein 07/01/22 07/01/22 07/02/22 21:21 23:14 07:41 WBC RBC Hgb Hct Plt Count Lymph % (Auto) Loving % (Auto) Lymph # (Auto) Loving # (Auto) Seg Neutrophils % Seg Neuts % (Manual) Lymphocytes % (Manual) Seg Neutrophils # Seg Neutrophils # Man Lymphocytes # (Manual) PT INR APTT Heparin Anti-Xa Level 0.27 L ABG pH ABG pO2 ABG HCO3 ABG O2 Saturation ABG Base Excess ABG Hemoglobin Oxyhemoglobin Sodium Potassium Chloride Carbon Dioxide BUN Creatinine Glucose POC Glucose 262 H 287 H Hemoglobin A1c Calcium Phosphorus Magnesium AST Troponin T NT-Pro-B Natriuret Pep Albumin Triglycerides LDL Cholesterol Direct HDL Cholesterol PTH Intact Urine Creatinine Urine Total Protein 07/02/22 07/02/22 07/02/22 08:12 08:12 20:28 WBC RBC Hgb 14.7 H Hct 46.3 H Plt Count 138 L Lymph % (Auto) Loving % (Auto) Lymph # (Auto) Loving # (Auto) Seg Neutrophils % Seg Neuts % (Manual) Lymphocytes % (Manual) Seg Neutrophils # Seg Neutrophils # Man Lymphocytes # (Manual) PT INR APTT Heparin Anti-Xa Level 0.21 L ABG pH ABG pO2 ABG HCO3 ABG O2 Saturation ABG Base Excess ABG Hemoglobin Oxyhemoglobin Sodium 129 L Potassium Chloride 95.7 L Carbon Dioxide 17 L BUN 24 H Creatinine Glucose 275 H POC Glucose Hemoglobin A1c Calcium Phosphorus 2.10 L D Magnesium AST Troponin T NT-Pro-B Natriuret Pep Albumin Triglycerides LDL Cholesterol Direct HDL Cholesterol PTH Intact Urine Creatinine Urine Total Protein 07/02/22 07/02/22 07/03/22 20:28 23:01 07:28 WBC RBC Hgb Hct Plt Count Lymph % (Auto) Loving % (Auto) Lymph # (Auto) Loving # (Auto) Seg Neutrophils % Seg Neuts % (Manual) Lymphocytes % (Manual) Seg Neutrophils # Seg Neutrophils # Man Lymphocytes # (Manual) PT 17.3 H INR 1.26 H APTT 24.1 L Heparin Anti-Xa Level ABG pH ABG pO2 ABG HCO3 ABG O2 Saturation ABG Base Excess ABG Hemoglobin Oxyhemoglobin Sodium Potassium Chloride Carbon Dioxide BUN Creatinine Glucose POC Glucose 340 H 261 H Hemoglobin A1c Calcium Phosphorus Magnesium AST Troponin T NT-Pro-B Natriuret Pep Albumin Triglycerides LDL Cholesterol Direct HDL Cholesterol PTH Intact Urine Creatinine Urine Total Protein 07/03/22 07/03/22 07/03/22 11:30 12:20 16:23 WBC RBC Hgb Hct Plt Count Lymph % (Auto) Loving % (Auto) Lymph # (Auto) Loving # (Auto) Seg Neutrophils % Seg Neuts % (Manual) Lymphocytes % (Manual) Seg Neutrophils # Seg Neutrophils # Man Lymphocytes # (Manual) PT INR APTT Heparin Anti-Xa Level ABG pH ABG pO2 ABG HCO3 ABG O2 Saturation ABG Base Excess ABG Hemoglobin Oxyhemoglobin Sodium 134 L Potassium Chloride Carbon Dioxide BUN 18 H Creatinine Glucose 271 H POC Glucose 292 H 255 H Hemoglobin A1c Calcium Phosphorus Magnesium AST Troponin T NT-Pro-B Natriuret Pep Albumin Triglycerides LDL Cholesterol Direct HDL Cholesterol PTH Intact Urine Creatinine Urine Total Protein 07/03/22 07/04/22 07/04/22 22:01 05:37 05:37 WBC RBC Hgb Hct Plt Count Lymph % (Auto) 8.4 L Loving % (Auto) 10.1 H Lymph # (Auto) 0.8 L Loving # (Auto) 1.0 H Seg Neutrophils % 80.6 H Seg Neuts % (Manual) Lymphocytes % (Manual) Seg Neutrophils # 8.0 H Seg Neutrophils # Man Lymphocytes # (Manual) PT INR APTT Heparin Anti-Xa Level ABG pH ABG pO2 ABG HCO3 ABG O2 Saturation ABG Base Excess ABG Hemoglobin Oxyhemoglobin Sodium Potassium Chloride Carbon Dioxide BUN Creatinine Glucose 217 H POC Glucose 281 H Hemoglobin A1c Calcium Phosphorus Magnesium AST Troponin T NT-Pro-B Natriuret Pep Albumin Triglycerides LDL Cholesterol Direct HDL Cholesterol PTH Intact Urine Creatinine Urine Total Protein 07/04/22 07/04/22 07/04/22 07:40 11:15 11:52 WBC RBC Hgb Hct Plt Count Lymph % (Auto) Loving % (Auto) Lymph # (Auto) Loving # (Auto) Seg Neutrophils % Seg Neuts % (Manual) Lymphocytes % (Manual) Seg Neutrophils # Seg Neutrophils # Man Lymphocytes # (Manual) PT INR APTT Heparin Anti-Xa Level ABG pH 7.303 L ABG pO2 64.6 L ABG HCO3 ABG O2 Saturation 92.9 L ABG Base Excess ABG Hemoglobin 11.9 L Oxyhemoglobin 90.6 L Sodium Potassium Chloride Carbon Dioxide BUN Creatinine Glucose POC Glucose 211 H 267 H Hemoglobin A1c Calcium Phosphorus Magnesium AST Troponin T NT-Pro-B Natriuret Pep Albumin Triglycerides LDL Cholesterol Direct HDL Cholesterol PTH Intact Urine Creatinine Urine Total Protein 07/04/22 07/04/22 07/05/22 16:51 22:03 07:48 WBC RBC Hgb Hct Plt Count Lymph % (Auto) Loving % (Auto) Lymph # (Auto) Loving # (Auto) Seg Neutrophils % Seg Neuts % (Manual) Lymphocytes % (Manual) Seg Neutrophils # Seg Neutrophils # Man Lymphocytes # (Manual) PT INR APTT Heparin Anti-Xa Level ABG pH ABG pO2 ABG HCO3 ABG O2 Saturation ABG Base Excess ABG Hemoglobin Oxyhemoglobin Sodium Potassium Chloride Carbon Dioxide BUN Creatinine Glucose POC Glucose 273 H 202 H 223 H Hemoglobin A1c Calcium Phosphorus Magnesium AST Troponin T NT-Pro-B Natriuret Pep Albumin Triglycerides LDL Cholesterol Direct HDL Cholesterol PTH Intact Urine Creatinine Urine Total Protein 07/05/22 07/05/22 07/05/22 11:06 18:03 Unknown WBC 16.5 H RBC Hgb Hct Plt Count Lymph % (Auto) Loving % (Auto) Lymph # (Auto) Loving # (Auto) Seg Neutrophils % Seg Neuts % (Manual) 91.0 H Lymphocytes % (Manual) 1.0 L Seg Neutrophils # Seg Neutrophils # Man 15.0 H Lymphocytes # (Manual) 0.2 L PT INR APTT Heparin Anti-Xa Level ABG pH 7.313 L ABG pO2 102.1 H ABG HCO3 27.2 H ABG O2 Saturation ABG Base Excess ABG Hemoglobin 10.6 L Oxyhemoglobin Sodium Potassium Chloride Carbon Dioxide BUN Creatinine Glucose POC Glucose 219 H Hemoglobin A1c Calcium Phosphorus Magnesium AST Troponin T NT-Pro-B Natriuret Pep Albumin Triglycerides LDL Cholesterol Direct HDL Cholesterol PTH Intact Urine Creatinine Urine Total Protein 07/05/22 07/06/22 07/06/22 Unknown 00:30 03:33 WBC RBC Hgb Hct Plt Count Lymph % (Auto) Loving % (Auto) Lymph # (Auto) Loving # (Auto) Seg Neutrophils % Seg Neuts % (Manual) Lymphocytes % (Manual) Seg Neutrophils # Seg Neutrophils # Man Lymphocytes # (Manual) PT INR APTT Heparin Anti-Xa Level ABG pH ABG pO2 142.7 H ABG HCO3 28.9 H ABG O2 Saturation ABG Base Excess 3.6 H ABG Hemoglobin 10.5 L Oxyhemoglobin Sodium Potassium Chloride Carbon Dioxide BUN Creatinine Glucose 290 H POC Glucose 199 H Hemoglobin A1c Calcium Phosphorus Magnesium AST Troponin T NT-Pro-B Natriuret Pep Albumin Triglycerides LDL Cholesterol Direct HDL Cholesterol PTH Intact Urine Creatinine Urine Total Protein 07/06/22 07/06/22 07/06/22 04:00 04:00 06:00 WBC 11.4 H RBC 3.55 L Hgb Hct Plt Count Lymph % (Auto) Loving % (Auto) Lymph # (Auto) Loving # (Auto) Seg Neutrophils % Seg Neuts % (Manual) Lymphocytes % (Manual) Seg Neutrophils # Seg Neutrophils # Man Lymphocytes # (Manual) PT INR APTT Heparin Anti-Xa Level ABG pH ABG pO2 ABG HCO3 ABG O2 Saturation ABG Base Excess ABG Hemoglobin Oxyhemoglobin Sodium Potassium Chloride Carbon Dioxide BUN 22 H Creatinine 1.3 H Glucose 173 H POC Glucose 180 H Hemoglobin A1c Calcium Phosphorus Magnesium AST Troponin T NT-Pro-B Natriuret Pep Albumin Triglycerides LDL Cholesterol Direct HDL Cholesterol PTH Intact Urine Creatinine Urine Total Protein Chest x-ray: image reviewed Allied health notes reviewed: RT
[2022-07-06] MEDS ORDERED: CEFEPIME/NS 2 GM/100 ML 2 GM/100 ML BAG IV SCH (10:00)
[2022-07-06] MEDS ORDERED: VANCOMYCIN 1,750 MG in SODIUM CHLORIDE 0.9% 500 ML 500 ML IV SCH (11:00)
--- NOTE | 2022-07-06 12:35 | Progress Note ---
Subjective - Reason for Consult Consult date: 07/06/22 Reason for consult: hx of bipolar - Chief Complaint Chief complaint: The patient was seen today. She is on a ventilator. The patient is resting and appears comfortable. The nurse caring for the patient states that she has been resting with no agitation or restlessness. She says the patient has been calm and cooperative. She also says the patient has been appropriate. ROS On ventilator MENTAL STATUS EXAMINATION General Appearance and Behavior: Intubated Cooperation: sedated Psychomotor Behavior: unable to assess Mood: unable to assess Affect and affective range: unable to assess Thought Process: unable to assess Thought Content: unable to assess Speech: patient intubated; unable to assess Suicidal Ideation: unable to assess Homicidal Ideation: unable to assess Hallucination: unable to assess Delusions: unable to assess Impulse Control: unable to assess Insight and Judgment: unable to assess Memory: unable to assess Attention: sedated Orientation: unable to assess ASSESSMENT Bipolar disorder TREATMENT Maintain haldol 5 mg BID Maintain Depakote 250 mg q6h Risks, benefits and alternatives of medications discussed with the patient, questions answered and consent obtained from patient. PSYCHOTHERAPY: Supportive psychotherapy provided MEDICAL: Per primary team DELIRIUM PRECAUTIONS: Please re-orient patient frequently, keep lights on during the day, and minimize benzodiazepines and opiates as these medications could worsen patient's confusion. MUSHROOM CULTIVATOR: Defer to primary DISPOSITION: Do not recommend acute inpatient psychiatric hospitalization at this time. FOLLOW-UP: Will sign off Thank you for the consult. Please contact with any questions and/or concerns. Case staffed with Dr. Andrews Mental Status Exam - Vital signs Last Vital Signs Temp 99.4 F 07/06/22 04:00 Pulse 98 H 07/06/22 11:00 Resp 33 H 07/06/22 11:00 BP 145/61 07/06/22 11:00 Pulse Ox 93 07/06/22 11:00
--- NOTE | 2022-07-06 13:50 | Progress Note ---
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 With history of recent extensive venous thromboembolism, most likely etiology to pursue is acute pulmonary embolism, in addition to other pulmonary etiologies such as sleep apnea, pulmonary atelectasis. Unlikely primary cardiac event. Defer to internal medicine and pulmonary for work-up of pulmonary causes of acute respiratory failure. Echocardiogram is pending for left ventricular function and right ventricular function assessment. (2) Paroxysmal atrial fibrillation Current Visit: Yes Status: Acute Plan to address problem: Patient has paroxysmal atrial fibrillation, with underlying right bundle branch block, findings are chronic. She is on long-term anticoagulation with Eliquis for her venous thromboembolism. Patient is currently in a stable sinus rhythm. We will direct further treatment for atrial fibrillation suppression as needed. Subjective Date of service: 07/06/22 Principal diagnosis: AHRF; DKA; Hyperkalemia; COPD; ? cellulitis; PVD; STEFFANIE; Morbid obesity; ?JACKLYN Interval history: Patient is awake on the vent, follows commands, no acute distress. 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 Objective Vital Signs Temp Pulse Resp BP Pulse Ox 07/06/22 11:00 98 H 33 H 145/61 93 07/06/22 10:00 87 26 H 139/62 90 07/06/22 09:00 78 25 H 143/63 89 07/06/22 08:10 99 07/06/22 08:00 75 25 H 118/49 91 07/06/22 07:00 69 24 120/50 93 07/06/22 06:00 69 25 H 107/50 93 07/06/22 05:00 48 L 24 96/48 91 07/06/22 04:00 99.4 F 64 24 102/43 99 07/06/22 03:00 63 24 109/52 100 07/06/22 02:00 55 L 24 108/51 99 07/06/22 01:00 60 24 100/49 99 07/06/22 00:00 62 24 101/45 98 07/05/22 23:30 62 0 L 108/45 99 07/05/22 23:00 61 24 107/44 100 07/05/22 22:00 60 24 100/44 100 07/05/22 21:00 73 22 82/53 100 07/05/22 20:00 101.8 F H 66 24 73/36 07/05/22 19:56 68 24 73/36 07/05/22 19:20 66 0 L 97/38 07/05/22 19:00 66 24 87/38 07/05/22 18:00 77 24 91/41 07/05/22 17:00 69 24 94/46 07/05/22 16:10 07/05/22 16:00 57 L 24 119/55 99 07/05/22 15:45 74 0 L 119/51 07/05/22 15:00 67 20 81/45 07/05/22 14:00 76 21 103/46 100 - Physical Examination General: Other (Awake, on the vent) HEENT: Positive: PERRL Neck: Positive: neck supple Cardiac: Positive: Reg Rate and Rhythm Lungs: Positive: Decreased Breath Sounds Neuro: Positive: Grossly Intact Abdomen: Positive: Soft Skin: Positive: Clear Extremities: Absent: edema - Labs and Meds CBC 07/05/22 07/06/22 Range/Units Unknown 04:00 WBC 16.5 H 11.4 H (4.5-11.0) K/mm3 RBC 3.73 3.55 L (3.65-5.03) M/mm3 Hgb 11.1 10.6 (10.1-14.3) gm/dl Hct 34.7 D 32.7 (30.3-42.9) % Plt Count 322 283 (140-440) K/mm3 Comprehensive Metabolic Panel 07/05/22 07/06/22 Range/Units Unknown 04:00 Sodium 139 137 (137-145) mmol/L Potassium 4.6 4.7 (3.6-5.0) mmol/L Chloride 103.2 101.9 (98-107) mmol/L Carbon Dioxide 26 27 (22-30) mmol/L BUN 16 22 H (7-17) mg/dL Creatinine 0.9 1.3 H (0.6-1.2) mg/dL Glucose 290 H 173 H (65-100) mg/dL Calcium 8.5 8.7 (8.4-10.2) mg/dL - Allied health notes Allied health notes reviewed: nursing
--- NOTE | 2022-07-06 18:47 | Progress Note ---
Assessment and Plan Assessment and plan: This is a 52-year-old female with DM, HTN, nicotine dependence, COPD, PE/DVT on Eliquis at home with IVC filter, medical noncompliance and bipolar disorder admitted with DKA and STEFFANIE Neuro: h/o medical noncompliance, bipolar disorder -Psych consulted, appreciate recommendations -Sedated with propofol and fentanyl -RASS goal 0 to -1 -Reorientation as needed -Maintain sleep-wake cycle -As needed analgesia -Per psych: Haldol, Depakote -Bilateral wrist restraints for safety Cardiac: s/p cardiac arrest on 07/05, h/o hypertension, HLD -Cardiology consulted, appreciate recommendations -Blood pressure monitoring per protocol -S/p vasopressor support with Levophed, pain epinephrine, vasopressin -MAP goal greater than 65 -Echocardiogram pending -Hold home hypertensive regimen of lisinopril and nifedipine -Continue home fenofibrate -Home medications: Lisinopril/hydrochlorothiazide 25/12.5 p.o. daily, fenofibrate 1 consistently grams daily -Echocardiogram shows LVEF 60 to 65%, RVSP 20 mmHg Respiratory: Acute hypoxic respiratory failure, -CCM consulted, appreciate recommendations -Intubated on 06/04 with 7.50 ETT at 22 at the lips -A.m. vent settings: Assist-control rate 24, tidal volume 450, PEEP 6, FiO2 30 -See RT notes for titration -A.m. ABG and CXR noted -VAP bundle -SPO2 monitoring GI: Morbid obese, moderate protein calorie malnutrition -PPI -NTR consulted for tube feedings : Acute kidney injury likely secondary to vasomotor nephropathy, hyponatremia, metabolic acidosis -Nephrology consulted, appreciate recommendations -Monitor intake and output -Renally dose medications -Avoid nephrotoxic medications -Trend BMP ID: Bilateral calf ulcers -General surgery consulted, appreciate recommendations -WOCN -Wound care per nursing -Infectious disease consulted, appreciate recommendation -Antibiotic therapy with cefepime/vancomycin x1 -f/u blood culture -Monitor WBC and temperature curve Endo: S/p DKA, h/o DM, hypothyroidism -Continue home Synthroid -Avoid hypoglycemia -SSI -Accu-Cheks q. every 6 -Long-acting insulin, titrate as needed -06/28 hemoglobin A1c 9.7 -Home regimen: Jardiance 5 mg daily, glimepiride 4 mg twice daily, Latuda 40 mg nightly, Ozempic 1 unit SQ per week Heme: Acute DVT h/o chronic right lower extremity DVT on Eliquis s/p IVC filter -Bilateral lower extremity Doppler ultrasound revealed bilateral lower extremity occlusive DVT with extension to IVC filter -S/p thrombectomy on 07/02 -/P Heparin drip -Eliquis p.o. -Trend CBC -Transfuse hemoglobin less than 7 -SCDs to BLE while in bed The high probability of a clinically significant, sudden or life threatening deterioration of the [multiple] system(s) required my full and direct attention, intervention and personal management. The aggregate critical care time was [60] minutes. This time is in addition to time spent performing reported procedures but includes the following: [x] Data Review and interpretation [x] Patient assessment and monitoring of vital signs [x] Documentation [x] Medication orders and management Disposition Plan: icu Total Time Spent with Patient (Minutes): 60 History Interval history: This is a 52-year-old female with DM, HTN, COPD, PE/DVT on Eliquis with IVC filter, medical noncompliance, bipolar, current nicotine abuse presented to the emergency department on 06/28 with complaints of shortness of breath, occasional palpitations. Work-up in the emergency department revealed hyperkalemia at 6.4, hyponatremia at 121, high anion gap metabolic acidosis with anion gap of 40, acute kidney injury with BUN/creatinine of 2.5/54 and hyperglycemia with glucose at 252. Patient was admitted to the hospitalist service with consults to CCM, nephrology and DKA on the DKA protocol. Hospital course to date: 06/28: Mentation improved, denied any abdominal pain, no nausea/vomiting. BG and anio gap still elevated. Continue insulin gtt and IVF resuscitation per protocol. Monitor and replace electrolytes as needed, serial Labs ordered. Transition to subQ once gap is closed. BLE ischemia noted, extremities are purple and cool to touch, palpable pedal pulses appreciated. Patient reported that she has a history of PE/DVT on Eliquis but she admitted that she has not been complaints with any of her medications for 3 days. 06/29: Anion Gap still greater than 20, and CO2 15 this am. 1amp of bcarb given, continue Insulin gtt and IVF resuscitation per protocol. repeat BMP ordered, will transition to subQ once gap is closed. BLE doppler noted with extensive BLE DVT, patient remains on the heparin gtt. Patient reported she was on PO Eliquis at home and had a IVF filter placed. Vascular Surgery is also following, appreciate recommendations. Hyponatremia improving, appreciate Nephrology's recs. 06/30: Remains stable. Still on the DKA protocol, BG level has been less than 200s for over 24hrs, anion gap still in the 20s this am, probably due to STEFFANIE. Will transition patient to Subq insulin. Patient remains on the heparin gtt. BLE is unchanged, CHRISTOPHER hose applied. Per vascular Surgery, possible interventions/thrombectomy once the patient is stabilized. 07/01: Transition to subQ insulin yesteday. Patient remains stable, tolerating PO intake. Insulin regimen adjusted for hyperglycemia, continue BG check ACHS and IVF hydration for now. Hyponatremia is improving, nephrology is following. Patient remains on heparin gtt per protocol for BLE ischemia. Possible interven tions/thrombectomy tomorrow per Vascular Surgery. 07/02: Patient seen and examined at the bedside. Remains stable on RA, VSS. Yesterday was transitioned to SubQ insulin, tolerating PO intake. BLE ischemia is unchanged with palpable pedal pulses. CHRISTOPHER Hose applied per Vascular Surgery. Discussed with vascular surgery today they are going to proceed with bilateral thrombectomy. We will continue on heparin drip at this time. Education provided to the patient on blood sugar control. Compliance discussion also had for 15 minutes counseling. Anticipate discharge in 24 to 48 hours postprocedure 07/03: Patient underwent thrombectomy of bilateral caval iliofemoral DVTs by vascular surgery on 07/02/2022. Patient tolerated the procedure well 07/04: No acute events overnight. 07/05: Cardiac arrest. Transferred to ICU. PICC line placed. Levophed, vasopressin, phenylephrine, intubated on ventilatory support. A-line placed 07/06: This morning patient was placed on CPAP trial which he failed, patient was started and titrated off. No changes to mental status. Echocardiogram read which showed no right heart strain. BUN/creatinine are increasing but we will continue to monitor. Given 1 dose of vancomycin and cefepime given leukocytosis and febrile illness. Bicarbonate drip discontinued. Hospitalist Physical - Constitutional Vitals: Temp Pulse Resp BP Pulse Ox 99.4 F 88 33 H 178/67 97 07/06/22 04:00 07/06/22 16:05 07/06/22 11:00 07/06/22 16:05 07/06/22 16:05 General appearance: Present: no acute distress, obese, other (Awake, on the vent, follows commands) - EENT Eyes: Present: PERRL, EOM intact ENT: hearing intact, clear oral mucosa, dentition normal - Neck Neck: Present: normal ROM - Respiratory Respiratory effort: normal Respiratory: bilateral: diminished - Cardiovascular Rhythm: regular Heart Sounds: Present: S1 & S2. Absent: systolic murmur, diastolic murmur - Extremities Extremities: no ischemia, pulses intact, pulses symmetrical, No edema, normal temperature, normal color Peripheral Pulses: within normal limits - Abdominal General gastrointestinal: soft, non-tender, non-distended, normal bowel sounds - Integumentary Integumentary: Present: warm, dry - Psychiatric Psychiatric: cooperative - Neurologic Neurologic: CNII-XII intact, no focal deficits, moves all extremities - Allied Health Allied health notes reviewed: nursing, RT, social work HEART Score - HEART Score Troponin: Troponin T 0.080 ng/mL (0.00-0.029) H 06/27/22 20:48 Results - Labs CBC & Chem 7: 07/06/22 04:00 07/06/22 04:00 Labs: Laboratory Last Values WBC 11.4 K/mm3 (4.5-11.0) H 07/06/22 04:00 RBC 3.55 M/mm3 (3.65-5.03) L 07/06/22 04:00 Hgb 10.6 gm/dl (10.1-14.3) 07/06/22 04:00 Hct 32.7 % (30.3-42.9) 07/06/22 04:00 MCV 92 fl (79-97) 07/06/22 04:00 MCH 30 pg (28-32) 07/06/22 04:00 MCHC 32 % (30-34) 07/06/22 04:00 RDW 14.8 % (13.2-15.2) 07/06/22 04:00 Plt Count 283 K/mm3 (140-440) 07/06/22 04:00 Lymph % (Auto) 8.4 % (13.4-35.0) L 07/04/22 05:37 Person % (Auto) 10.1 % (0.0-7.3) H 07/04/22 05:37 Eos % (Auto) 0.4 % (0.0-4.3) 07/04/22 05:37 Baso % (Auto) 0.5 % (0.0-1.8) 07/04/22 05:37 Lymph # (Auto) 0.8 K/mm3 (1.2-5.4) L 07/04/22 05:37 Person # (Auto) 1.0 K/mm3 (0.0-0.8) H 07/04/22 05:37 Eos # (Auto) 0.0 K/mm3 (0.0-0.4) 07/04/22 05:37 Baso # (Auto) 0.0 K/mm3 (0.0-0.1) 07/04/22 05:37 Add Manual Diff Complete 07/05/22 Unknown Total Counted 100 07/05/22 Unknown Seg Neutrophils % 80.6 % (40.0-70.0) H 07/04/22 05:37 Seg Neuts % (Manual) 91.0 % (40.0-70.0) H 07/05/22 Unknown Band Neutrophils % 0 % 07/05/22 Unknown Lymphocytes % (Manual) 1.0 % (13.4-35.0) L 07/05/22 Unknown Reactive Lymphs % (Man) 0 % 07/05/22 Unknown Monocytes % (Manual) 4.0 % (0.0-7.3) 07/05/22 Unknown Eosinophils % (Manual) 0 % (0.0-4.3) 07/05/22 Unknown Basophils % (Manual) 0 % (0.0-1.8) 07/05/22 Unknown Metamyelocytes % 3.0 % 07/05/22 Unknown Myelocytes % 1.0 % 07/05/22 Unknown Promyelocytes % 0 % 07/05/22 Unknown Blast Cells % 0 % 07/05/22 Unknown Nucleated RBC % Not Reportable 07/05/22 Unknown Seg Neutrophils # 8.0 K/mm3 (1.8-7.7) H 07/04/22 05:37 Seg Neutrophils # Man 15.0 K/mm3 (1.8-7.7) H 07/05/22 Unknown Band Neutrophils # 0.0 K/mm3 07/05/22 Unknown Lymphocytes # (Manual) 0.2 K/mm3 (1.2-5.4) L 07/05/22 Unknown Abs React Lymphs (Man) 0.0 K/mm3 07/05/22 Unknown Monocytes # (Manual) 0.7 K/mm3 (0.0-0.8) 07/05/22 Unknown Eosinophils # (Manual) 0.0 K/mm3 (0.0-0.4) 07/05/22 Unknown Basophils # (Manual) 0.0 K/mm3 (0.0-0.1) 07/05/22 Unknown Metamyelocytes # 0.5 K/mm3 07/05/22 Unknown Myelocytes # 0.2 K/mm3 07/05/22 Unknown Promyelocytes # 0.0 K/mm3 07/05/22 Unknown Blast Cells # 0.0 K/mm3 07/05/22 Unknown WBC Morphology Not Reportable 07/05/22 Unknown WBC Morphology TNR 07/05/22 Unknown Hypersegmented Neuts Not Reportable 07/05/22 Unknown Hyposegmented Neuts Not Reportable 07/05/22 Unknown Hypogranular Neuts Not Reportable 07/05/22 Unknown Smudge Cells Not Reportable 07/05/22 Unknown Toxic Granulation Not Reportable 07/05/22 Unknown Toxic Vacuolation Not Reportable 07/05/22 Unknown Dohle Bodies Not Reportable 07/05/22 Unknown Pelger-Huet Anomaly Not Reportable 07/05/22 Unknown Jesús Rods Not Reportable 07/05/22 Unknown Platelet Estimate Consistent w auto 07/05/22 Unknown Clumped Platelets Few 07/05/22 Unknown Plt Clumps, EDTA Not Reportable 07/05/22 Unknown Large Platelets Not Reportable 07/05/22 Unknown Giant Platelets Not Reportable 07/05/22 Unknown Platelet Satelliting Not Reportable 07/05/22 Unknown Plt Morphology Comment Not Reportable 07/05/22 Unknown RBC Morphology Normal 07/05/22 Unknown Dimorphic RBCs Not Reportable 07/05/22 Unknown Polychromasia Not Reportable 07/05/22 Unknown Hypochromasia Not Reportable 07/05/22 Unknown Poikilocytosis Not Reportable 07/05/22 Unknown Anisocytosis Not Reportable 07/05/22 Unknown Microcytosis Not Reportable 07/05/22 Unknown Macrocytosis Not Reportable 07/05/22 Unknown Spherocytes Not Reportable 07/05/22 Unknown Pappenheimer Bodies Not Reportable 07/05/22 Unknown Sickle Cells Not Reportable 07/05/22 Unknown Target Cells Not Reportable 07/05/22 Unknown Tear Drop Cells Not Reportable 07/05/22 Unknown Ovalocytes Not Reportable 07/05/22 Unknown Helmet Cells Not Reportable 07/05/22 Unknown Barnhart-Cranford Bodies Not Reportable 07/05/22 Unknown [place] Rings Not Reportable 07/05/22 Unknown [place] Cells Not Reportable 07/05/22 Unknown Bite Cells Not Reportable 07/05/22 Unknown Crenated Cell Not Reportable 07/05/22 Unknown Elliptocytes Not Reportable 07/05/22 Unknown Acanthocytes (Spur) Not Reportable 07/05/22 Unknown Rouleaux Not Reportable 07/05/22 Unknown Hemoglobin C Crystals Not Reportable 07/05/22 Unknown Schistocytes Not Reportable 07/05/22 Unknown Malaria parasites Not Reportable 07/05/22 Unknown Ellis Bodies Not Reportable 07/05/22 Unknown Hem Pathologist Commnt No 07/05/22 Unknown PT 17.3 Sec. (12.2-14.9) H 07/02/22 20:28 INR 1.26 (0.87-1.13) H 07/02/22 20:28 APTT 24.1 Sec. (24.2-36.6) L 07/02/22 20:28 Heparin Anti-Xa Level 0.21 U.I./ml (0.3-0.7) L 07/02/22 08:12 ABG pH 7.404 pH Units (7.350-7.450) 07/06/22 03:33 ABG pCO2 47.3 mm Hg 07/06/22 03:33 ABG pO2 142.7 mm Hg (80.0-90.0) H 07/06/22 03:33 ABG HCO3 28.9 mmol/L (20.0-26.0) H 07/06/22 03:33 ABG O2 Saturation 98.7 % (95.0-99.0) 07/06/22 03:33 ABG O2 Content 14.6 (0.0-44) 07/06/22 03:33 ABG Base Excess 3.6 mmol/L (-2.0-3.0) H 07/06/22 03:33 ABG Hemoglobin 10.5 gm/dl (12.0-16.0) L 07/06/22 03:33 ABG Carboxyhemoglobin 1.3 % (0.0-5.0) 07/06/22 03:33 ABG Methemoglobin 0.5 % (0.0-1.5) 07/06/22 03:33 Oxyhemoglobin 96.9 % (95.0-99.0) 07/06/22 03:33 FiO2 25 % 07/06/22 03:33 Sodium 137 mmol/L (137-145) 07/06/22 04:00 Potassium 4.7 mmol/L (3.6-5.0) 07/06/22 04:00 Chloride 101.9 mmol/L (98-107) 07/06/22 04:00 Carbon Dioxide 27 mmol/L (22-30) 07/06/22 04:00 Anion Gap 13 mmol/L 07/06/22 04:00 BUN 22 mg/dL (7-17) H 07/06/22 04:00 Creatinine 1.3 mg/dL (0.6-1.2) H 07/06/22 04:00 Estimated GFR 43 ml/min 07/06/22 04:00 BUN/Creatinine Ratio 17 % 07/06/22 04:00 Glucose 173 mg/dL (65-100) H 07/06/22 04:00 POC Glucose 179 mg/dL (70-105) H 07/06/22 12:39 Hemoglobin A1c 9.7 % (4-6) H 06/28/22 20:31 Lactic Acid 1.90 mmol/L (0.7-2.0) 06/29/22 10:47 Calcium 8.7 mg/dL (8.4-10.2) 07/06/22 04:00 Phosphorus 2.10 mg/dL (2.5-4.5) L D 07/02/22 08:12 Magnesium 2.00 mg/dL (1.7-2.3) 07/05/22 Unknown Total Bilirubin 0.90 mg/dL (0.1-1.2) 06/27/22 20:48 AST 50 units/L (5-40) H 06/27/22 20:48 ALT 28 units/L (7-56) 06/27/22 20:48 Alkaline Phosphatase 97 units/L (35-129) 06/27/22 20:48 Troponin T 0.080 ng/mL (0.00-0.029) H 06/27/22 20:48 NT-Pro-B Natriuret Pep 4137 pg/mL (0-900) H 06/27/22 20:48 Total Protein 7.0 g/dL (6.3-8.2) 06/27/22 20:48 Albumin 3.1 g/dL (3.9-5) L 06/27/22 20:48 Albumin/Globulin Ratio 0.8 % 06/27/22 20:48 Triglycerides 349 mg/dL (2-149) H 06/27/22 20:48 Cholesterol 156 mg/dL (50-199) 06/27/22 20:48 LDL Cholesterol Direct 37 mg/dL (50-130) L 06/27/22 20:48 HDL Cholesterol 38 mg/dL (40-59) L 06/27/22 20:48 Cholesterol/HDL Ratio 4.10 % 06/27/22 20:48 Procalcitonin 2.51 ng/mL (<0.15) 06/29/22 10:47 PTH Intact 382.4 pg/mL (15-65) H 06/29/22 04:21 Urine Creatinine 85.4 mg/dL (0.1-20.0) H 06/28/22 08:10 Protein/Creatinin Ratio 0.57 06/28/22 08:10 Urine Sodium 10 mmol/L 06/28/22 08:10 Urine Total Protein 49 mg/dL (5-11.8) H 06/28/22 08:10 Microbiology: Microbiology 07/05/22 11:07 Tracheal Aspirate Sputum Culture - Preliminary 07/05/22 15:15 Peripheral/Venous Blood Culture - Preliminary Culture in Progress 07/05/22 15:15 Peripheral/Venous Blood Culture - Preliminary Culture in Progress Tian/IV: Voiding Method External Female Catheter Active Medications - Current Medications Current Medications: Generic Name Dose Route Start Last Admin Trade Name Freq PRN Reason Stop Dose Admin Acetaminophen 650 mg 06/28/22 03:09 Acetaminophen 325 Mg Tab PO Q6H PRN Pain MILD(1-3)/Fever >100.5/MURILLO Lipase/Protease/Amylase 1 each 07/05/22 11:00 Lipase 10,500/Protease 25,000/Amylase 43,750 (Units) Dr Cap FEEDTUBE PRN PRN For Clogged Feeding Tube Apixaban 5 mg 07/10/22 10:00 Apixaban 5 Mg Tab FEEDTUBE Q12HR SHANTHI Protocol Apixaban 10 mg 07/05/22 12:00 07/06/22 09:40 Apixaban 5 Mg Tab FEEDTUBE 07/09/22 22:01 10 mg Q12HR SHANTHI Administration Protocol Atorvastatin Calcium 40 mg 07/05/22 10:38 07/05/22 22:20 Atorvastatin 40 Mg Tab FEEDTUBE 40 mg QHS SHANTHI Administration Dextrose 50 ml 06/30/22 09:00 Dextrose 50% In Water (25gm) 50 Ml Syringe IV Q30MIN PRN Hypoglycemia Protocol Haloperidol 5 mg 07/05/22 11:00 07/06/22 09:42 Haloperidol 5 Mg Tab FEEDTUBE 5 mg BID SHANTHI Administration Hydrophilic Ointment 1 applic 07/05/22 12:00 Lip Therapy Vaseline TP Q2H PRN Dry Lips Propofol 1,000 mg in 100 mls @ 4.188 mls/hr 07/05/22 10:00 07/06/22 12:00 Diprivan 10 Mg/Ml IV 5 mcg/kg/min TITR SHANTHI 4.188 mls/hr Titration Protocol 5 MCG/KG/MIN Phenylephrine HCl 100 mg/ 250 mls @ 10.47 mls/hr 07/05/22 10:45 07/06/22 08:45 Sodium Chloride IV 0 mcg/kg/min TITRATE SHANTHI 0 mls/hr Titration Protocol 0.5 MCG/KG/MIN Sodium Chloride 500 mls @ 1 mls/hr 07/05/22 12:00 Nacl 0.9% 500 Ml IV DIRECT PRN ARTERIAL LINE FLUSH Vasopressin 20 unit/ Sodium 101 mls @ 9.09 mls/hr 07/05/22 12:00 07/06/22 08:45 Chloride IV 0 units/min TITR SHANTHI 0 mls/hr Titration Protocol 0.03 UNITS/MIN Fentanyl Citrate 1,000 mcg in 100 mls @ 2.5 mls/hr 07/05/22 14:00 07/05/22 14:41 Fentanyl Drip Premix IV 25 mcg/hr TITR SHANTHI 2.5 mls/hr Administration Protocol 25 MCG/HR Insulin Human Isoph/Insulin Regular 30 unit 07/05/22 09:00 07/06/22 18:19 Insulin Nph/Regular 70/30 Inj SUB-Q 30 unit BIDDIAB SHANTHI Administration Insulin Human Regular 8 units 07/01/22 07:35 07/06/22 18:19 Insulin Regular, Human 100 Units/1 Ml SUB-Q Not Given AC SHANTHI Lansoprazole 30 mg 07/06/22 10:00 07/06/22 09:40 Lansoprazole 30 Mg Solutab FEEDTUBE 30 mg QDAY SHANTHI Administration Levothyroxine Sodium 112 mcg 07/05/22 12:00 07/06/22 09:40 Levothyroxine 112 Mcg Tab FEEDTUBE 112 mcg QAM SHANTHI Administration Multi-Ingred Cream/Lotion/Oil/Oint 1 applic 07/05/22 11:00 Mineral Oil/Petrolatum, White Ophth Oint 3.5 Gm OU Q4H PRN Dry Eye(s) Nicotine 21 mg 07/04/22 15:00 07/06/22 09:39 Nicotine 21 Mg/24 Hr Patch TD 21 mg QDAY SHANTHI Administration Ondansetron HCl 4 mg 06/28/22 03:09 06/28/22 05:44 Ondansetron 4 Mg/2 Ml Inj IV 4 mg Q8H PRN Administration Nausea And Vomiting Senna/Docusate Sodium 1 tab 07/05/22 11:00 07/06/22 09:40 Sennosides/Docusate Sodium 8.6/50 Mg Tab FEEDTUBE 1 tab BID SHANTHI Administration Simple Syrup 15 ml 07/05/22 11:00 Simple Syrup 15 Ml FEEDTUBE PRN PRN Hypoglycemia Simple Syrup 30 ml 07/05/22 11:00 Simple Syrup 15 Ml FEEDTUBE PRN PRN Hypoglycemia Sodium Bicarbonate 325 mg 07/05/22 10:26 Sodium Bicarbonate 325 Mg Tab FEEDTUBE PRN PRN For Clogged Feeding Tube Sodium Chloride 10 ml 06/28/22 10:00 07/06/22 13:33 Sodium Chloride 0.9% 10 Ml Flush Syringe IV 10 ml BID SHANTHI Administration Sodium Chloride 10 ml 06/28/22 03:09 Sodium Chloride 0.9% 10 Ml Flush Syringe IV PRN PRN LINE FLUSH Valproic Acid 250 mg 07/05/22 18:00 07/06/22 18:19 Valproic Acid 250 Mg/5 Ml Oral Liqd FEEDTUBE 250 mg Q6HR SHANTHI Administration Nutrition/Malnutrition Assess - Dietary Evaluation Nutrition/Malnutrition Findings: Nutrition Notes Start: 06/28/22 11:39 Freq: Status: Active Protocol: Document 07/05/22 11:15 CHRISTAL (Rec: 07/05/22 12:12 CHRISTAL [email or web address]) Nutrition Notes Initial or Follow up Reassessment Current Diagnosis COPD,Diabetes,Hypertension Other Pertinent Diagnosis S/p PEA/ROSC, s/p STEFFANIE, s/p DKA , DVT s/p LE Angioplasty. Current Diet TF-Vital High Protein @ 65 ml/ hr (from D 07/05). Labs/Tests 07/05: Glu 217. Pertinent Medications 07/05: Humulin R 8U, Levothyroxine, Vasopressin 20U , others nutritionally unremarkable. Height 5 ft 4 in Weight 139.6 kg [place] Body Weight (kg) 54.54 BMI 52.8 Weight change and time frame No body weight change reported in 1 week. Weight Status Morbidly Obese Subjective/Other Information RD consult for write/manage TF assessment. Pt currently on NPO. Code MET & Code BLUE were called on 07/05, Pt was transferred to [facility]1 and intubated emergently, according to RN notes. I will prescribe TF to provide Pt with energy/protein needs during LOS. Until D 07/04, Pt's PO intake of meals had been Good (100%) and well tolerated, according to ADL notes. Pt is on Mechanical Ventilation, O2 saturation @ 96%, according tu Mechanical Ventilation Assessment notes. Pt has missing teeth, according to Physical Assessment History notes. Pt presents Bilateral LE redness/echimosis as sign of concern for skin risk at the time, according to Physical Assessment History notes. Percent of energy/protein needs met: Prescribed TF-Vital High Protein @ 65 ml/hr provides for energy/protein needs (1, 550 Kcal/136 g) during LOS, Burn Absent Trauma Absent GI Symptoms None Food Allergy No Skin Integrity/Comment Bilateral LE redness/echimosis . Current % PO Other Minimum of two criteria No Fluid Accumulation N/A Reduced Equipment Analyst Strength N/A (non-severe) Protein-Calorie Malnutrition N\A #2 Nutrition Diagnosis Inadequate oral intake Etiology Pt is on Mechanical Ventilation. As Evidenced by Signs and Symptoms Pt is currently on NPO. #1 Nutrition Diagnosis Overweight/obesity Diagnosis Progress(for reassessment Continues documentation) Is patient on ventilator? Yes Is Patient Ambulatory and/or Out of Bed No REE-(Converse-St Jeor-confined to bed) 2392.512 Kcal/Kg value to use for calculation 11 Approximate Energy Requirements Using 1536 kcal/Kg Calculation Used for Recommendations Kcal/kg Additional Notes Protein: 1.2-2 g/Kg AdjBW; 115 -196 g/day. Fluids: 1 ml/Kcal, or as per MD. Nutrition Intervention Change Diet Order: Discontinued. Nutrition Support: Start TF-Vital High Protein @ 65 ml/hr. Flush: 50 ml Q 4 hr, or as per MD. Kcal 1,550 Protein (gm) 136 Carbohydrates (gm) 174 Fat (gm) 36 Fluid (mL) 1,296 Fiber (gm) 0 % RDI: 101% Kcal; 100% AA. Goal #1 Provide at least 75% of energy /protein needs through Enteral Feeding during LOS. Follow-Up By: 07/07/22 Additional Comments Start monitoring TF tolerance, ventilation status, and BM.
[2022-07-07] MEDS: VALPROIC ACID 250 MG/5 ML ORAL LIQD FEEDTUBE SCH ×5 (02:41→23:32)
[2022-07-07 04:49] LABS: ABG Base Excess 5.8 mmol/L (-2.0-3.0); ABG HCO3 29.9 mmol/L (20.0-26.0); ABG Methemoglobin 0.4 % (0.0-1.5); ABG Oxygen Saturation 97.5 % (95.0-99.0); ABG PCO2 41.8 mm Hg; ABG PH 7.473 pH Units (7.350-7.450); ABG PO2 93.4 mm Hg (80.0-90.0)
--- NOTE | 2022-07-07 05:15 | XRay Report ---
CHEST 1 VIEW 07/07/2022 3:52 AM INDICATION / CLINICAL INFORMATION: follow up respiratory failure. COMPARISON: chest radiograph performed yesterday FINDINGS: SUPPORT DEVICES: The support lines and tubes are in stable and appropriate position. HEART / MEDIASTINUM: Stable cardiomediastinal silhouette for AP technique. LUNGS / PLEURA: No pneumothorax. Stable pulmonary findings without interval detrimental change. ADDITIONAL FINDINGS: No significant additional findings. IMPRESSION: 1. Stable cardiopulmonary findings without pneumothorax or other interval detrimental change. 2. Stable satisfactory support line/tube position. Signer Name: Josh Menjivar MD Signed: 07/07/2022 5:11 AM Workstation Name: [id number]
[2022-07-07 06:02] LABS: Hematocrit 28.7 % (30.3-42.9); Hemoglobin 9.7 gm/dl (10.1-14.3); Mean Corpuscular HGB Conc 34 % (30-34); Mean Corpuscular Volume 92 fl (79-97); Platelet Count 180 K/mm3 (140-440); Red Blood Count 3.13 M/mm3 (3.65-5.03); Red Cell Distribution Width 14.8 % (13.2-15.2)
[2022-07-07 06:23] LABS: Calcium 8.5 mg/dL (8.4-10.2)
[2022-07-07] MEDS ORDERED: INSULIN REGULAR, HUMAN 100 UNITS/1 ML SUB-Q SCH ×2 (07:30→14:00)
[2022-07-07] MEDS ORDERED: SODIUM CHLORIDE 0.9% 1000 ML 1,000 ML ONE (08:22)
[2022-07-07] MEDS ORDERED: VANCOMYCIN PHARMACY TO DOSE IV SCH (09:00)
[2022-07-07] MEDS: INSULIN NPH/REGULAR 70/30 INJ SUB-Q SCH (09:16)
[2022-07-07] MEDS: HALOPERIDOL 5 MG TAB FEEDTUBE SCH ×2 (09:24→23:30)
[2022-07-07] MEDS: LANSOPRAZOLE 30 MG SOLUTAB FEEDTUBE SCH (09:24)
[2022-07-07] MEDS: LEVOTHYROXINE 112 MCG TAB FEEDTUBE SCH (09:24)
[2022-07-07] MEDS: APIXABAN 5 MG TAB FEEDTUBE SCH ×2 (09:24→23:31)
[2022-07-07] MEDS: NICOTINE 21 MG/24 HR PATCH TD SCH (09:24)
[2022-07-07] MEDS ORDERED: CEFEPIME/NS 2 GM/100 ML 2 GM/100 ML BAG IV SCH (10:00)
--- NOTE | 2022-07-07 11:05 | Progress Note ---
Subjective - Reason for Consult Consult date: 07/07/22 Reason for consult: hx of bipolar - Chief Complaint Chief complaint: The patient was seen today. She is on a ventilator. She is awake and able to answer questions. She does so by nodding or shaking her head or thumbs up. The patient says she is not comfortable when asked. She shakes her head. I ask from anxiety or pain, she shows two fingers. I said, both, she shakes her head. The patient says she has a history of bipolar and been off her meds for about two weeks. She nods her head when I ask her a series of question pertaining to her history. She shakes her head when I ask has she been sleeping well. She denies SI/HI or hallucinations. ROS On ventilator MENTAL STATUS EXAMINATION General Appearance and Behavior: Intubated Cooperation: cooperative Psychomotor Behavior: unable to assess Mood: Anxious Affect and affective range: congruent with stated mood Thought Process: unable to assess Thought Content: unable to assess Speech: patient intubated; unable to assess Suicidal Ideation: Denies Homicidal Ideation: Denies Hallucination: Denies Delusions: unable to assess Impulse Control: Normal Insight and Judgment: unable to assess Memory: Limited Attention: sedated Orientation: unable to assess ASSESSMENT Bipolar disorder TREATMENT Start Mirtazepine solutab 15mg po qhs to promote rest Maintain haldol 5 mg BID Maintain Depakote 250 mg q6h Risks, benefits and alternatives of medications discussed with the patient, questions answered and consent obtained from patient. PSYCHOTHERAPY: Supportive psychotherapy provided MEDICAL: Per primary team DELIRIUM PRECAUTIONS: Please re-orient patient frequently, keep lights on during the day, and minimize benzodiazepines and opiates as these medications could worsen patient's confusion. WAIST FITTER: Defer to primary DISPOSITION: Do not recommend acute inpatient psychiatric hospitalization at this time. FOLLOW-UP: Will follow Thank you for the consult. Please contact with any questions and/or concerns. Case staffed with Dr. Andrews Mental Status Exam - Vital signs Last Vital Signs Temp 98.6 F 07/07/22 08:00 Pulse 68 07/07/22 08:00 Resp 20 07/07/22 08:00 BP 143/64 07/07/22 04:15 Pulse Ox 98 07/07/22 08:00
[2022-07-07] MEDS: SENNOSIDES/DOCUSATE SODIUM 8.6/50 MG TAB FEEDTUBE SCH (12:28)
--- NOTE | 2022-07-07 12:57 | Progress Note ---
<JOSELUISMarvinLINETTEKatt - Last Filed: 07/07/22 12:57> Assessment and Plan Assessment and plan: This is a 52-year-old female with DM, HTN, nicotine dependence, COPD, PE/DVT on Eliquis at home with IVC filter, medical noncompliance and bipolar disorder admitted with DKA and STEFFANIE Neuro: h/o medical noncompliance, bipolar disorder -Psych consulted, appreciate recommendations -Sedated with propofol and fentanyl -RASS goal 0 to -1 -Reorientation as needed -Maintain sleep-wake cycle -As needed analgesia -Per psych: Haldol, Depakote -Bilateral wrist restraints for safety Cardiac: s/p cardiac arrest on 07/05, h/o hypertension, HLD -Cardiology consulted, appreciate recommendations -Blood pressure monitoring per protocol -S/p vasopressor support with Levophed, pain epinephrine, vasopressin -MAP goal greater than 65 -Hold home hypertensive regimen of lisinopril and nifedipine -Continue home fenofibrate -Home medications: Lisinopril/hydrochlorothiazide 25/12.5 p.o. daily, fe nofibrate 1 consistently grams daily -Echocardiogram shows LVEF 60 to 65%, RVSP 20 mmHg, no RV strain Respiratory: Acute hypoxic respiratory failure -CCM consulted, appreciate recommendations -Intubated on 06/04 with 7.50 ETT at 22 at the lips -A.m. vent settings: Assist-control rate 24, tidal volume 450, PEEP 6, FiO2 30 -See RT notes for titration -failed CPAP -A.m. ABG and CXR noted -VAP bundle -SPO2 monitoring GI: Morbid obese, moderate protein calorie malnutrition -PPI -NTR consulted for tube feedings : Acute kidney injury likely secondary to vasomotor nephropathy (resolved) -Nephrology consulted, appreciate recommendations -Monitor intake and output -Renally dose medications -Avoid nephrotoxic medications -Trend BMP ID: Bilateral calf ulcers -General surgery consulted, appreciate recommendations -WOCN -Wound care per nursing -Antibiotic therapy with cefepime/vancomycin x1 -f/u blood culture -Monitor WBC and temperature curve Endo: S/p DKA, h/o DM, hypothyroidism -Continue home Synthroid -Avoid hypoglycemia -SSI -Accu-Cheks q. every 6 -HOLD 70/30 insetting of hypoglycemia -06/28 hemoglobin A1c 9.7 -Home regimen: Jardiance 5 mg daily, glimepiride 4 mg twice daily, Latuda 40 mg nightly, Ozempic 1 unit SQ per week Heme: Acute DVT h/o chronic right lower extremity DVT on Eliquis s/p IVC filter -Bilateral lower extremity Doppler ultrasound revealed bilateral lower extremity occlusive DVT with extension to IVC filter -S/p thrombectomy on 07/02 -s/p Heparin drip -Eliquis p.o. -Trend CBC -Transfuse hemoglobin less than 7 -SCDs to BLE while in bed The high probability of a clinically significant, sudden or life threatening deterioration of the [multiple] system(s) required my full and direct attention, intervention and personal management. The aggregate critical care time was [60] minutes. This time is in addition to time spent performing reported procedures but includes the following: [x] Data Review and interpretation [x] Patient assessment and monitoring of vital signs [x] Documentation [x] Medication orders and management Disposition Plan: icu Total Time Spent with Patient (Minutes): 60 History Interval history: This is a 52-year-old female with DM, HTN, COPD, PE/DVT on Eliquis with IVC filter, medical noncompliance, bipolar, current nicotine abuse presented to the emergency department on 06/28 with complaints of shortness of breath, occasional palpitations. Work-up in the emergency department revealed hyperkalemia at 6.4, hyponatremia at 121, high anion gap metabolic acidosis with anion gap of 40, acute kidney injury with BUN/creatinine of 2.5/54 and hyperglycemia with glucose at 252. Patient was admitted to the hospitalist service with consults to CCM, nephrology and DKA on the DKA protocol. Hospital course to date: 06/28: Mentation improved, denied any abdominal pain, no nausea/vomiting. BG and anio gap still elevated. Continue insulin gtt and IVF resuscitation per protocol. Monitor and replace electrolytes as needed, serial Labs ordered. Transition to subQ once gap is closed. BLE ischemia noted, extremities are purple and cool to touch, palpable pedal pulses appreciated. Patient reported that she has a history of PE/DVT on Eliquis but she admitted that she has not been complaints with any of her medications for 3 days. 06/29: Anion Gap still greater than 20, and CO2 15 this am. 1amp of bcarb given, continue Insulin gtt and IVF resuscitation per protocol. repeat BMP ordered, will transition to subQ once gap is closed. BLE doppler noted with extensive BLE DVT, patient remains on the heparin gtt. Patient reported she was on PO Eliquis at home and had a IVF filter placed. Vascular Surgery is also following, appreciate recommendations. Hyponatremia improving, appreciate Nephrology's recs. 06/30: Remains stable. Still on the DKA protocol, BG level has been less than 200 s for over 24hrs, anion gap still in the 20s this am, probably due to STEFFANIE. Will transition patient to Subq insulin. Patient remains on the heparin gtt. BLE is unchanged, CHRISTOPHER hose applied. Per vascular Surgery, possible interventions/thrombectomy once the patient is stabilized. 07/01: Transition to subQ insulin yesteday. Patient remains stable, tolerating PO intake. Insulin regimen adjusted for hyperglycemia, continue BG check ACHS and IVF hydration for now. Hyponatremia is improving, nephrology is following. Patient remains on heparin gtt per protocol for BLE ischemia. Possible interventions/thrombectomy tomorrow per Vascular Surgery. 07/02: Patient seen and examined at the bedside. Remains stable on RA, VSS. Yesterday was transitioned to SubQ insulin, tolerating PO intake. BLE ischemia is unchanged with palpable pedal pulses. CHRISTOPHER Hose applied per Vascular Surgery. Discussed with vascular surgery today they are going to proceed with bilateral thrombectomy. We will continue on heparin drip at this time. Education provided to the patient on blood sugar control. Compliance discussion also had for 15 minutes counseling. Anticipate discharge in 24 to 48 hours postprocedure 07/03: Patient underwent thrombectomy of bilateral caval iliofemoral DVTs by vascular surgery on 07/02/2022. Patient tolerated the procedure well 07/04: No acute events overnight. 07/05: Cardiac arrest. Transferred to ICU. PICC line placed. Levophed, vasopressin, phenylephrine, intubated on ventilatory support. A-line placed 07/06: This morning patient was placed on CPAP trial which he failed, patient was started and titrated off. No changes to mental status. Echocardiogram read which showed no right heart strain. BUN/creatinine are increasing but we will continue to monitor. Given 1 dose of vancomycin and cefepime given leukocytosis and febrile illness. Bicarbonate drip discontinued. 07/07: Patient was placed on CPAP trial which he failed due to tachypnea. Decreased her insulin regimen due to hypoglycemia. Hospitalist Physical - Constitutional Vitals: Temp Pulse Resp BP Pulse Ox 98.6 F 78 35 H 101/63 92 07/07/22 08:00 07/07/22 12:00 07/07/22 09:00 07/07/22 11:50 07/07/22 11:50 General appearance: Present: no acute distress, obese, other (Awake, on the vent, follows commands) - EENT Eyes: Present: PERRL, EOM intact ENT: poor dentition - Neck Neck: Present: normal ROM - Respiratory Respiratory effort: normal Respiratory: bilateral: diminished - Cardiovascular Rhythm: regular Heart Sounds: Present: S1 & S2. Absent: systolic murmur, diastolic murmur - Extremities Extremities: no ischemia, pulses intact, pulses symmetrical, No edema, normal temperature, normal color, Full ROM Peripheral Pulses: within normal limits - Abdominal General gastrointestinal: soft, non-tender, non-distended, normal bowel sounds - Integumentary Integumentary: Present: warm, dry - Psychiatric Psychiatric: cooperative - Neurologic Neurologic: CNII-XII intact, no focal deficits, moves all extremities - Allied Health Allied health notes reviewed: nursing, RT, social work HEART Score - HEART Score Troponin: Troponin T 0.080 ng/mL (0.00-0.029) H 06/27/22 20:48 Results - Labs CBC & Chem 7: 07/07/22 05:35 07/07/22 05:35 Labs: Laboratory Last Values WBC 7.6 K/mm3 (4.5-11.0) 07/07/22 05:35 RBC 3.13 M/mm3 (3.65-5.03) L 07/07/22 05:35 Hgb 9.7 gm/dl (10.1-14.3) L 07/07/22 05:35 Hct 28.7 % (30.3-42.9) L 07/07/22 05:35 MCV 92 fl (79-97) 07/07/22 05:35 MCH 31 pg (28-32) 07/07/22 05:35 MCHC 34 % (30-34) 07/07/22 05:35 RDW 14.8 % (13.2-15.2) 07/07/22 05:35 Plt Count 180 K/mm3 (140-440) 07/07/22 05:35 Lymph % (Auto) 8.4 % (13.4-35.0) L 07/04/22 05:37 Wirt % (Auto) 10.1 % (0.0-7.3) H 07/04/22 05:37 Eos % (Auto) 0.4 % (0.0-4.3) 07/04/22 05:37 Baso % (Auto) 0.5 % (0.0-1.8) 07/04/22 05:37 Lymph # (Auto) 0.8 K/mm3 (1.2-5.4) L 07/04/22 05:37 Wirt # (Auto) 1.0 K/mm3 (0.0-0.8) H 07/04/22 05:37 Eos # (Auto) 0.0 K/mm3 (0.0-0.4) 07/04/22 05:37 Baso # (Auto) 0.0 K/mm3 (0.0-0.1) 07/04/22 05:37 Add Manual Diff Complete 07/05/22 Unknown Total Counted 100 07/05/22 Unknown Seg Neutrophils % 80.6 % (40.0-70.0) H 07/04/22 05:37 Seg Neuts % (Manual) 91.0 % (40.0-70.0) H 07/05/22 Unknown Band Neutrophils % 0 % 07/05/22 Unknown Lymphocytes % (Manual) 1.0 % (13.4-35.0) L 07/05/22 Unknown Reactive Lymphs % (Man) 0 % 07/05/22 Unknown Monocytes % (Manual) 4.0 % (0.0-7.3) 07/05/22 Unknown Eosinophils % (Manual) 0 % (0.0-4.3) 07/05/22 Unknown Basophils % (Manual) 0 % (0.0-1.8) 07/05/22 Unknown Metamyelocytes % 3.0 % 07/05/22 Unknown Myelocytes % 1.0 % 07/05/22 Unknown Promyelocytes % 0 % 07/05/22 Unknown Blast Cells % 0 % 07/05/22 Unknown Nucleated RBC % Not Reportable 07/05/22 Unknown Seg Neutrophils # 8.0 K/mm3 (1.8-7.7) H 07/04/22 05:37 Seg Neutrophils # Man 15.0 K/mm3 (1.8-7.7) H 07/05/22 Unknown Band Neutrophils # 0.0 K/mm3 07/05/22 Unknown Lymphocytes # (Manual) 0.2 K/mm3 (1.2-5.4) L 07/05/22 Unknown Abs React Lymphs (Man) 0.0 K/mm3 07/05/22 Unknown Monocytes # (Manual) 0.7 K/mm3 (0.0-0.8) 07/05/22 Unknown Eosinophils # (Manual) 0.0 K/mm3 (0.0-0.4) 07/05/22 Unknown Basophils # (Manual) 0.0 K/mm3 (0.0-0.1) 07/05/22 Unknown Metamyelocytes # 0.5 K/mm3 07/05/22 Unknown Myelocytes # 0.2 K/mm3 07/05/22 Unknown Promyelocytes # 0.0 K/mm3 07/05/22 Unknown Blast Cells # 0.0 K/mm3 07/05/22 Unknown WBC Morphology Not Reportable 07/05/22 Unknown WBC Morphology TNR 07/05/22 Unknown Hypersegmented Neuts Not Reportable 07/05/22 Unknown Hyposegmented Neuts Not Reportable 07/05/22 Unknown Hypogranular Neuts Not Reportable 07/05/22 Unknown Smudge Cells Not Reportable 07/05/22 Unknown Toxic Granulation Not Reportable 07/05/22 Unknown Toxic Vacuolation Not Reportable 07/05/22 Unknown Dohle Bodies Not Reportable 07/05/22 Unknown Pelger-Huet Anomaly Not Reportable 07/05/22 Unknown Jesús Rods Not Reportable 07/05/22 Unknown Platelet Estimate Consistent w auto 07/05/22 Unknown Clumped Platelets Few 07/05/22 Unknown Plt Clumps, EDTA Not Reportable 07/05/22 Unknown Large Platelets Not Reportable 07/05/22 Unknown Giant Platelets Not Reportable 07/05/22 Unknown Platelet Satelliting Not Reportable 07/05/22 Unknown Plt Morphology Comment Not Reportable 07/05/22 Unknown RBC Morphology Normal 07/05/22 Unknown Dimorphic RBCs Not Reportable 07/05/22 Unknown Polychromasia Not Reportable 07/05/22 Unknown Hypochromasia Not Reportable 07/05/22 Unknown Poikilocytosis Not Reportable 07/05/22 Unknown Anisocytosis Not Reportable 07/05/22 Unknown Microcytosis Not Reportable 07/05/22 Unknown Macrocytosis Not Reportable 07/05/22 Unknown Spherocytes Not Reportable 07/05/22 Unknown Pappenheimer Bodies Not Reportable 07/05/22 Unknown Sickle Cells Not Reportable 07/05/22 Unknown Target Cells Not Reportable 07/05/22 Unknown Tear Drop Cells Not Reportable 07/05/22 Unknown Ovalocytes Not Reportable 07/05/22 Unknown Helmet Cells Not Reportable 07/05/22 Unknown [place] Bodies Not Reportable 07/05/22 Unknown [place] Rings Not Reportable 07/05/22 Unknown Nelly Cells Not Reportable 07/05/22 Unknown Bite Cells Not Reportable 07/05/22 Unknown Crenated Cell Not Reportable 07/05/22 Unknown Elliptocytes Not Reportable 07/05/22 Unknown Acanthocytes (Spur) Not Reportable 07/05/22 Unknown Rouleaux Not Reportable 07/05/22 Unknown Hemoglobin C Crystals Not Reportable 07/05/22 Unknown Schistocytes Not Reportable 07/05/22 Unknown Malaria parasites Not Reportable 07/05/22 Unknown Ellis Bodies Not Reportable 07/05/22 Unknown Hem Pathologist Commnt No 07/05/22 Unknown PT 17.3 Sec. (12.2-14.9) H 07/02/22 20:28 INR 1.26 (0.87-1.13) H 07/02/22 20:28 APTT 24.1 Sec. (24.2-36.6) L 07/02/22 20:28 Heparin Anti-Xa Level 0.21 U.I./ml (0.3-0.7) L 07/02/22 08:12 ABG pH 7.473 pH Units (7.350-7.450) H 07/07/22 04:13 ABG pCO2 41.8 mm Hg 07/07/22 04:13 ABG pO2 93.4 mm Hg (80.0-90.0) H 07/07/22 04:13 ABG HCO3 29.9 mmol/L (20.0-26.0) H 07/07/22 04:13 ABG O2 Saturation 97.5 % (95.0-99.0) 07/07/22 04:13 ABG O2 Content 13.5 (0.0-44) 07/07/22 04:13 ABG Base Excess 5.8 mmol/L (-2.0-3.0) H 07/07/22 04:13 ABG Hemoglobin 10.0 gm/dl (12.0-16.0) L 07/07/22 04:13 ABG Carboxyhemoglobin 1.5 % (0.0-5.0) 07/07/22 04:13 ABG Methemoglobin 0.4 % (0.0-1.5) 07/07/22 04:13 Oxyhemoglobin 95.6 % (95.0-99.0) 07/07/22 04:13 FiO2 40 % 07/07/22 04:13 Sodium 141 mmol/L (137-145) 07/07/22 05:35 Potassium 3.9 mmol/L (3.6-5.0) 07/07/22 05:35 Chloride 104.7 mmol/L (98-107) 07/07/22 05:35 Carbon Dioxide 31 mmol/L (22-30) H 07/07/22 05:35 Anion Gap 9 mmol/L 07/07/22 05:35 BUN 21 mg/dL (7-17) H 07/07/22 05:35 Creatinine 1.1 mg/dL (0.6-1.2) 07/07/22 05:35 Estimated GFR 52 ml/min 07/07/22 05:35 BUN/Creatinine Ratio 19 % 07/07/22 05:35 Glucose 72 mg/dL (65-100) 07/07/22 05:35 POC Glucose 111 mg/dL (70-105) H 07/07/22 12:25 Hemoglobin A1c 9.7 % (4-6) H 06/28/22 20:31 Lactic Acid 1.90 mmol/L (0.7-2.0) 06/29/22 10:47 Calcium 8.5 mg/dL (8.4-10.2) 07/07/22 05:35 Phosphorus 2.10 mg/dL (2.5-4.5) L D 07/02/22 08:12 Magnesium 2.00 mg/dL (1.7-2.3) 07/05/22 Unknown Total Bilirubin 0.90 mg/dL (0.1-1.2) 06/27/22 20:48 AST 50 units/L (5-40) H 06/27/22 20:48 ALT 28 units/L (7-56) 06/27/22 20:48 Alkaline Phosphatase 97 units/L (35-129) 06/27/22 20:48 Troponin T 0.080 ng/mL (0.00-0.029) H 06/27/22 20:48 NT-Pro-B Natriuret Pep 4137 pg/mL (0-900) H 06/27/22 20:48 Total Protein 7.0 g/dL (6.3-8.2) 06/27/22 20:48 Albumin 3.1 g/dL (3.9-5) L 06/27/22 20:48 Albumin/Globulin Ratio 0.8 % 06/27/22 20:48 Triglycerides 349 mg/dL (2-149) H 06/27/22 20:48 Cholesterol 156 mg/dL (50-199) 06/27/22 20:48 LDL Cholesterol Direct 37 mg/dL (50-130) L 06/27/22 20:48 HDL Cholesterol 38 mg/dL (40-59) L 06/27/22 20:48 Cholesterol/HDL Ratio 4.10 % 06/27/22 20:48 Procalcitonin 2.51 ng/mL (<0.15) 06/29/22 10:47 PTH Intact 382.4 pg/mL (15-65) H 06/29/22 04:21 Urine Creatinine 85.4 mg/dL (0.1-20.0) H 06/28/22 08:10 Protein/Creatinin Ratio 0.57 06/28/22 08:10 Urine Sodium 10 mmol/L 06/28/22 08:10 Urine Total Protein 49 mg/dL (5-11.8) H 06/28/22 08:10 Microbiology: Microbiology 07/05/22 15:15 Peripheral/Venous Blood Culture - Preliminary NO GROWTH AFTER 24 HOURS 07/05/22 15:15 Peripheral/Venous Blood Culture - Preliminary NO GROWTH AFTER 24 HOURS 07/05/22 11:07 Tracheal Aspirate Sputum Culture - Preliminary Tian/IV: Voiding Method External Female Catheter Active Medications - Current Medications Current Medications: Generic Name Dose Route Start Last Admin Trade Name Freq PRN Reason Stop Dose Admin Acetaminophen 650 mg 06/28/22 03:09 Acetaminophen 325 Mg Tab PO Q6H PRN Pain MILD(1-3)/Fever >100.5/MURILLO Lipase/Protease/Amylase 1 each 07/05/22 11:00 Lipase 10,500/Protease 25,000/Amylase 43,750 (Units) Dr [place] FEEDTUBE PRN PRN For Clogged Feeding Tube Apixaban 5 mg 07/10/22 10:00 Apixaban 5 Mg Tab FEEDTUBE Q12HR SHANTHI Protocol Apixaban 10 mg 07/05/22 12:00 07/07/22 09:24 Apixaban 5 Mg Tab FEEDTUBE 07/09/22 22:01 10 mg Q12HR SHANTHI Administration Protocol Atorvastatin Calcium 40 mg 07/05/22 10:38 07/06/22 21:10 Atorvastatin 40 Mg Tab FEEDTUBE 40 mg QHS SHANTHI Administration Dextrose 50 ml 06/30/22 09:00 07/07/22 06:21 Dextrose 50% In Water (25gm) 50 Ml Syringe IV 50 ml Q30MIN PRN Administration Hypoglycemia Protocol Haloperidol 5 mg 07/05/22 11:00 07/07/22 09:24 Haloperidol 5 Mg Tab FEEDTUBE 5 mg BID SHANTHI Administration Hydrophilic Ointment 1 applic 07/05/22 12:00 Lip Therapy Vaseline TP Q2H PRN Dry Lips Propofol 1,000 mg in 100 mls @ 4.188 mls/hr 07/05/22 10:00 07/07/22 12:26 Diprivan 10 Mg/Ml IV 5 mcg/kg/min TITR SHANTHI 4.188 mls/hr Titration Protocol 5 MCG/KG/MIN Phenylephrine HCl 100 mg/ 250 mls @ 10.47 mls/hr 07/05/22 10:45 07/06/22 08:45 Sodium Chloride IV 0 mcg/kg/min TITRATE SHANTHI 0 mls/hr Titration Protocol 0.5 MCG/KG/MIN Sodium Chloride 500 mls @ 1 mls/hr 07/05/22 12:00 Nacl 0.9% 500 Ml IV DIRECT PRN ARTERIAL LINE FLUSH Vasopressin 20 unit/ Sodium 101 mls @ 9.09 mls/hr 07/05/22 12:00 07/06/22 08:45 Chloride IV 0 units/min TITR SHANTHI 0 mls/hr Titration Protocol 0.03 UNITS/MIN Fentanyl Citrate 1,000 mcg in 100 mls @ 2.5 mls/hr 07/05/22 14:00 07/05/22 14:41 Fentanyl Drip Premix IV 25 mcg/hr TITR SHANTHI 2.5 mls/hr Administration Protocol 25 MCG/HR Lansoprazole 30 mg 07/06/22 10:00 07/07/22 09:24 Lansoprazole 30 Mg Solutab FEEDTUBE 30 mg QDAY SHANTHI Administration Levothyroxine Sodium 112 mcg 07/05/22 12:00 07/07/22 09:24 Levothyroxine 112 Mcg Tab FEEDTUBE 112 mcg QAM SHANTIH Administration Mirtazapine 15 mg 07/07/22 22:00 Mirtazapine 15 Mg Solutab PO QHS SHANTHI Multi-Ingred Cream/Lotion/Oil/Oint 1 applic 07/05/22 11:00 Mineral Oil/Petrolatum, White Ophth Oint 3.5 Gm OU Q4H PRN Dry Eye(s) Nicotine 21 mg 07/04/22 15:00 07/07/22 09:24 Nicotine 21 Mg/24 Hr Patch TD 21 mg QDAY SHANTHI Administration Ondansetron HCl 4 mg 06/28/22 03:09 06/28/22 05:44 Ondansetron 4 Mg/2 Ml Inj IV 4 mg Q8H PRN Administration Nausea And Vomiting Senna/Docusate Sodium 1 tab 07/05/22 11:00 07/07/22 12:28 Sennosides/Docusate Sodium 8.6/50 Mg Tab FEEDTUBE Not Given BID SHANTHI Simple Syrup 15 ml 07/05/22 11:00 Simple Syrup 15 Ml FEEDTUBE PRN PRN Hypoglycemia Simple Syrup 30 ml 07/05/22 11:00 Simple Syrup 15 Ml FEEDTUBE PRN PRN Hypoglycemia Sodium Bicarbonate 325 mg 07/05/22 10:26 Sodium Bicarbonate 325 Mg Tab FEEDTUBE PRN PRN For Clogged Feeding Tube Sodium Chloride 10 ml 06/28/22 10:00 07/07/22 09:27 Sodium Chloride 0.9% 10 Ml Flush Syringe IV 10 ml BID SHANTHI Administration Sodium Chloride 10 ml 06/28/22 03:09 Sodium Chloride 0.9% 10 Ml Flush Syringe IV PRN PRN LINE FLUSH Valproic Acid 250 mg 07/05/22 18:00 07/07/22 12:41 Valproic Acid 250 Mg/5 Ml Oral Liqd FEEDTUBE 250 mg Q6HR SHANTHI Administration Nutrition/Malnutrition Assess - Dietary Evaluation Nutrition/Malnutrition Findings: Nutrition Notes Start: 06/28/22 11:39 Freq: Status: Active Protocol: Document 07/05/22 11:15 CHRISTAL (Rec: 07/05/22 12:12 CHRISTAL [id number]) Nutrition Notes Initial or Follow up Reassessment Current Diagnosis COPD,Diabetes,Hypertension Other Pertinent Diagnosis S/p PEA/ROSC, s/p STEFFANIE, s/p DKA , DVT s/p LE Angioplasty. Current Diet TF-Vital High Protein @ 65 ml/ hr (from D 07/05). Labs/Tests 07/05: Glu 217. Pertinent Medications 07/05: Humulin R 8U, Levothyroxine, Vasopressin 20U , others nutritionally unremarkable. Height 5 ft 4 in Weight 139.6 kg [place] Body Weight (kg) 54.54 BMI 52.8 Weight change and time frame No body weight change reported in 1 week. Weight Status Morbidly Obese Subjective/Other Information RD consult for write/manage TF assessment. Pt currently on NPO. Code MET & Code BLUE were called on 07/05, Pt was transferred to CC1 and intubated emergently, according to RN notes. I will prescribe TF to provide Pt with energy/protein needs during LOS. Until D 07/04, Pt's PO intake of meals had been Good (100%) and well tolerated, according to ADL notes. Pt is on Mechanical Ventilation, O2 saturation @ 96%, according tu Mechanical Ventilation Assessment notes. Pt has missing teeth, according to Physical Assessment History notes. Pt presents Bilateral LE redness/echimosis as sign of concern for skin risk at the time, according to Physical Assessment History notes. Percent of energy/protein needs met: Prescribed TF-Vital High Protein @ 65 ml/hr provides for energy/protein needs (1, 550 Kcal/136 g) during LOS, Burn Absent Trauma Absent GI Symptoms None Food Allergy No Skin Integrity/Comment Bilateral LE redness/echimosis . Current % PO Other Minimum of two criteria No Fluid Accumulation N/A Reduced Catering Manager Strength N/A (non-severe) Protein-Calorie Malnutrition N\A #2 Nutrition Diagnosis Inadequate oral intake Etiology Pt is on Mechanical Ventilation. As Evidenced by Signs and Symptoms Pt is currently on NPO. #1 Nutrition Diagnosis Overweight/obesity Diagnosis Progress(for reassessment Continues documentation) Is patient on ventilator? Yes Is Patient Ambulatory and/or Out of Bed No REE-([facility]-confined to bed) 2392.512 Kcal/Kg value to use for calculation 11 Approximate Energy Requirements Using 1536 kcal/Kg Calculation Used for Recommendations Kcal/kg Additional Notes Protein: 1.2-2 g/Kg AdjBW; 115 -196 g/day. Fluids: 1 ml/Kcal, or as per MD. Nutrition Intervention Change Diet Order: Discontinued. Nutrition Support: Start TF-Vital High Protein @ 65 ml/hr. Flush: 50 ml Q 4 hr, or as per MD. Kcal 1,550 Protein (gm) 136 Carbohydrates (gm) 174 Fat (gm) 36 Fluid (mL) 1,296 Fiber (gm) 0 % RDI: 101% Kcal; 100% AA. Goal #1 Provide at least 75% of energy /protein needs through Enteral Feeding during LOS. Follow-Up By: 07/07/22 Additional Comments Start monitoring TF tolerance, ventilation status, and BM. <MASON ANDRADE - Last Filed: 07/08/22 07:14> Assessment and Plan Assessment and plan: I saw and evaluated the patient. I agree with the findings and the plan of care as documented in the Nurse Practitioner's~note, with the following corrections a nd additions. Hospitalist Physical - Constitutional Vitals: Temp Pulse Resp BP Pulse Ox 100.6 F H 80 25 H 96/49 94 07/08/22 04:27 07/08/22 06:00 07/08/22 06:00 07/08/22 06:00 07/08/22 06:00 HEART Score - HEART Score Troponin: Troponin T 0.080 ng/mL (0.00-0.029) H 06/27/22 20:48 Results - Labs CBC & Chem 7: 07/08/22 05:00 07/08/22 05:00 Labs: Laboratory Last Values WBC 7.2 K/mm3 (4.5-11.0) 07/08/22 05:00 RBC 3.30 M/mm3 (3.65-5.03) L 07/08/22 05:00 Hgb 9.9 gm/dl (10.1-14.3) L 07/08/22 05:00 Hct 31.0 % (30.3-42.9) 07/08/22 05:00 MCV 94 fl (79-97) 07/08/22 05:00 MCH 30 pg (28-32) 07/08/22 05:00 MCHC 32 % (30-34) 07/08/22 05:00 RDW 15.2 % (13.2-15.2) 07/08/22 05:00 Plt Count 189 K/mm3 (140-440) 07/08/22 05:00 Lymph % (Auto) 8.4 % (13.4-35.0) L 07/04/22 05:37 Wirt % (Auto) 10.1 % (0.0-7.3) H 07/04/22 05:37 Eos % (Auto) 0.4 % (0.0-4.3) 07/04/22 05:37 Baso % (Auto) 0.5 % (0.0-1.8) 07/04/22 05:37 Lymph # (Auto) 0.8 K/mm3 (1.2-5.4) L 07/04/22 05:37 Wirt # (Auto) 1.0 K/mm3 (0.0-0.8) H 07/04/22 05:37 Eos # (Auto) 0.0 K/mm3 (0.0-0.4) 07/04/22 05:37 Baso # (Auto) 0.0 K/mm3 (0.0-0.1) 07/04/22 05:37 Add Manual Diff Complete 07/05/22 Unknown Total Counted 100 07/05/22 Unknown Seg Neutrophils % 80.6 % (40.0-70.0) H 07/04/22 05:37 Seg Neuts % (Manual) 91.0 % (40.0-70.0) H 07/05/22 Unknown Band Neutrophils % 0 % 07/05/22 Unknown Lymphocytes % (Manual) 1.0 % (13.4-35.0) L 07/05/22 Unknown Reactive Lymphs % (Man) 0 % 07/05/22 Unknown Monocytes % (Manual) 4.0 % (0.0-7.3) 07/05/22 Unknown Eosinophils % (Manual) 0 % (0.0-4.3) 07/05/22 Unknown Basophils % (Manual) 0 % (0.0-1.8) 07/05/22 Unknown Metamyelocytes % 3.0 % 07/05/22 Unknown Myelocytes % 1.0 % 07/05/22 Unknown Promyelocytes % 0 % 07/05/22 Unknown Blast Cells % 0 % 07/05/22 Unknown Nucleated RBC % Not Reportable 07/05/22 Unknown Seg Neutrophils # 8.0 K/mm3 (1.8-7.7) H 07/04/22 05:37 Seg Neutrophils # Man 15.0 K/mm3 (1.8-7.7) H 07/05/22 Unknown Band Neutrophils # 0.0 K/mm3 07/05/22 Unknown Lymphocytes # (Manual) 0.2 K/mm3 (1.2-5.4) L 07/05/22 Unknown Abs React Lymphs (Man) 0.0 K/mm3 07/05/22 Unknown Monocytes # (Manual) 0.7 K/mm3 (0.0-0.8) 07/05/22 Unknown Eosinophils # (Manual) 0.0 K/mm3 (0.0-0.4) 07/05/22 Unknown Basophils # (Manual) 0.0 K/mm3 (0.0-0.1) 07/05/22 Unknown Metamyelocytes # 0.5 K/mm3 07/05/22 Unknown Myelocytes # 0.2 K/mm3 07/05/22 Unknown Promyelocytes # 0.0 K/mm3 07/05/22 Unknown Blast Cells # 0.0 K/mm3 07/05/22 Unknown WBC Morphology Not Reportable 07/05/22 Unknown WBC Morphology TNR 07/05/22 Unknown Hypersegmented Neuts Not Reportable 07/05/22 Unknown Hyposegmented Neuts Not Reportable 07/05/22 Unknown Hypogranular Neuts Not Reportable 07/05/22 Unknown Smudge Cells Not Reportable 07/05/22 Unknown Toxic Granulation Not Reportable 07/05/22 Unknown Toxic Vacuolation Not Reportable 07/05/22 Unknown Dohle Bodies Not Reportable 07/05/22 Unknown Pelger-Huet Anomaly Not Reportable 07/05/22 Unknown Jesús Rods Not Reportable 07/05/22 Unknown Platelet Estimate Consistent w auto 07/05/22 Unknown Clumped Platelets Few 07/05/22 Unknown Plt Clumps, EDTA Not Reportable 07/05/22 Unknown Large Platelets Not Reportable 07/05/22 Unknown Giant Platelets Not Reportable 07/05/22 Unknown Platelet Satelliting Not Reportable 07/05/22 Unknown Plt Morphology Comment Not Reportable 07/05/22 Unknown RBC Morphology Normal 07/05/22 Unknown Dimorphic RBCs Not Reportable 07/05/22 Unknown Polychromasia Not Reportable 07/05/22 Unknown Hypochromasia Not Reportable 07/05/22 Unknown Poikilocytosis Not Reportable 07/05/22 Unknown Anisocytosis Not Reportable 07/05/22 Unknown Microcytosis Not Reportable 07/05/22 Unknown Macrocytosis Not Reportable 07/05/22 Unknown Spherocytes Not Reportable 07/05/22 Unknown Pappenheimer Bodies Not Reportable 07/05/22 Unknown Sickle Cells Not Reportable 07/05/22 Unknown Target Cells Not Reportable 07/05/22 Unknown Tear Drop Cells Not Reportable 07/05/22 Unknown Ovalocytes Not Reportable 07/05/22 Unknown Helmet Cells Not Reportable 07/05/22 Unknown [place] Bodies Not Reportable 07/05/22 Unknown [place] Rings Not Reportable 07/05/22 Unknown [place] Cells Not Reportable 07/05/22 Unknown Bite Cells Not Reportable 07/05/22 Unknown Crenated Cell Not Reportable 07/05/22 Unknown Elliptocytes Not Reportable 07/05/22 Unknown Acanthocytes (Spur) Not Reportable 07/05/22 Unknown Rouleaux Not Reportable 07/05/22 Unknown Hemoglobin C Crystals Not Reportable 07/05/22 Unknown Schistocytes Not Reportable 07/05/22 Unknown Malaria parasites Not Reportable 07/05/22 Unknown Ellis Bodies Not Reportable 07/05/22 Unknown Hem Pathologist Commnt No 07/05/22 Unknown PT 17.3 Sec. (12.2-14.9) H 07/02/22 20:28 INR 1.26 (0.87-1.13) H 07/02/22 20:28 APTT 24.1 Sec. (24.2-36.6) L 07/02/22 20:28 Heparin Anti-Xa Level 0.21 U.I./ml (0.3-0.7) L 07/02/22 08:12 ABG pH 7.423 pH Units (7.350-7.450) 07/08/22 04:15 ABG pCO2 45.8 mm Hg 07/08/22 04:15 ABG pO2 63.4 mm Hg (80.0-90.0) L 07/08/22 04:15 ABG HCO3 29.2 mmol/L (20.0-26.0) H 07/08/22 04:15 ABG O2 Saturation 94.0 % (95.0-99.0) L 07/08/22 04:15 ABG O2 Content 13.0 (0.0-44) 07/08/22 04:15 ABG Base Excess 4.2 mmol/L (-2.0-3.0) H 07/08/22 04:15 ABG Hemoglobin 10.0 gm/dl (12.0-16.0) L 07/08/22 04:15 ABG Carboxyhemoglobin 1.8 % (0.0-5.0) 07/08/22 04:15 ABG Methemoglobin 0.5 % (0.0-1.5) 07/08/22 04:15 Oxyhemoglobin 91.8 % (95.0-99.0) L 07/08/22 04:15 FiO2 35 % 07/08/22 04:15 Sodium 141 mmol/L (137-145) 07/08/22 04:00 Potassium 4.7 mmol/L (3.6-5.0) D 07/08/22 04:00 Chloride 103.7 mmol/L (98-107) 07/08/22 04:00 Carbon Dioxide 28 mmol/L (22-30) 07/08/22 04:00 Anion Gap 14 mmol/L 07/08/22 04:00 BUN 26 mg/dL (7-17) H 07/08/22 04:00 Creatinine 1.1 mg/dL (0.6-1.2) 07/08/22 05:00 Estimated GFR 52 ml/min 07/08/22 05:00 BUN/Creatinine Ratio 24 % 07/08/22 04:00 Glucose 276 mg/dL (65-100) H 07/08/22 04:00 POC Glucose 167 mg/dL (70-105) H 07/07/22 18:36 Hemoglobin A1c 9.7 % (4-6) H 06/28/22 20:31 Lactic Acid 1.90 mmol/L (0.7-2.0) 06/29/22 10:47 Calcium 8.9 mg/dL (8.4-10.2) 07/08/22 04:00 Phosphorus 2.10 mg/dL (2.5-4.5) L D 07/02/22 08:12 Magnesium 2.00 mg/dL (1.7-2.3) 07/05/22 Unknown Total Bilirubin 0.90 mg/dL (0.1-1.2) 06/27/22 20:48 AST 50 units/L (5-40) H 06/27/22 20:48 ALT 28 units/L (7-56) 06/27/22 20:48 Alkaline Phosphatase 97 units/L (35-129) 06/27/22 20:48 Troponin T 0.080 ng/mL (0.00-0.029) H 06/27/22 20:48 NT-Pro-B Natriuret Pep 4137 pg/mL (0-900) H 06/27/22 20:48 Total Protein 7.0 g/dL (6.3-8.2) 06/27/22 20:48 Albumin 3.1 g/dL (3.9-5) L 06/27/22 20:48 Albumin/Globulin Ratio 0.8 % 06/27/22 20:48 Triglycerides 349 mg/dL (2-149) H 06/27/22 20:48 Cholesterol 156 mg/dL (50-199) 06/27/22 20:48 LDL Cholesterol Direct 37 mg/dL (50-130) L 06/27/22 20:48 HDL Cholesterol 38 mg/dL (40-59) L 06/27/22 20:48 Cholesterol/HDL Ratio 4.10 % 06/27/22 20:48 Procalcitonin 2.51 ng/mL (<0.15) 06/29/22 10:47 PTH Intact 382.4 pg/mL (15-65) H 06/29/22 04:21 Urine Creatinine 85.4 mg/dL (0.1-20.0) H 06/28/22 08:10 Protein/Creatinin Ratio 0.57 06/28/22 08:10 Urine Sodium 10 mmol/L 06/28/22 08:10 Urine Total Protein 49 mg/dL (5-11.8) H 06/28/22 08:10 Microbiology: Microbiology 07/05/22 15:15 Peripheral/Venous Blood Culture - Preliminary NO GROWTH AFTER 48 HOURS 07/05/22 15:15 Peripheral/Venous Blood Culture - Preliminary NO GROWTH AFTER 48 HOURS 07/07/22 14:29 Peripheral/Venous Blood Culture - Preliminary Culture in Progress 07/07/22 14:29 Peripheral/Venous Blood Culture - Preliminary Culture in Progress Tian/IV: Voiding Method External Female Catheter Active Medications - Current Medications Current Medications: Generic Name Dose Route Start Last Admin Trade Name Freq PRN Reason Stop Dose Admin Acetaminophen 650 mg 06/28/22 03:09 Acetaminophen 325 Mg Tab PO Q6H PRN Pain MILD(1-3)/Fever >100.5/MURILLO Lipase/Protease/Amylase 1 each 07/05/22 11:00 Lipase 10,500/Protease 25,000/Amylase 43,750 (Units) Dr [place] FEEDTUBE PRN PRN For Clogged Feeding Tube Apixaban 5 mg 07/10/22 10:00 Apixaban 5 Mg Tab FEEDTUBE Q12HR SHANTHI Protocol Apixaban 10 mg 07/05/22 12:00 07/07/22 23:31 Apixaban 5 Mg Tab FEEDTUBE 07/09/22 22:01 10 mg Q12HR SHANTHI Administration Protocol Atorvastatin Calcium 40 mg 07/05/22 10:38 07/07/22 23:31 Atorvastatin 40 Mg Tab FEEDTUBE 40 mg QHS SHANTHI Administration Dextrose 50 ml 06/30/22 09:00 07/07/22 06:21 Dextrose 50% In Water (25gm) 50 Ml Syringe IV 50 ml Q30MIN PRN Administration Hypoglycemia Protocol Haloperidol 5 mg 07/05/22 11:00 07/07/22 23:30 Haloperidol 5 Mg Tab FEEDTUBE 5 mg BID SHANTHI Administration Hydrophilic Ointment 1 applic 07/05/22 12:00 Lip Therapy Vaseline TP Q2H PRN Dry Lips Propofol 1,000 mg in 100 mls @ 4.188 mls/hr 07/05/22 10:00 07/07/22 13:44 Diprivan 10 Mg/Ml IV 5 mcg/kg/min TITR SHANTHI 4.188 mls/hr Administration Protocol 5 MCG/KG/MIN Phenylephrine HCl 100 mg/ 250 mls @ 10.47 mls/hr 07/05/22 10:45 07/06/22 08:45 Sodium Chloride IV 0 mcg/kg/min TITRATE SHANTHI 0 mls/hr Titration Protocol 0.5 MCG/KG/MIN Sodium Chloride 500 mls @ 1 mls/hr 07/05/22 12:00 Nacl 0.9% 500 Ml IV DIRECT PRN ARTERIAL LINE FLUSH Vasopressin 20 unit/ Sodium 101 mls @ 9.09 mls/hr 07/05/22 12:00 07/06/22 08:45 Chloride IV 0 units/min TITR SHANTHI 0 mls/hr Titration Protocol 0.03 UNITS/MIN Fentanyl Citrate 1,000 mcg in 100 mls @ 2.5 mls/hr 07/05/22 14:00 07/05/22 14:41 Fentanyl Drip Premix IV 25 mcg/hr TITR SHANTHI 2.5 mls/hr Administration Protocol 25 MCG/HR Lansoprazole 30 mg 07/06/22 10:00 07/07/22 09:24 Lansoprazole 30 Mg Solutab FEEDTUBE 30 mg QDAY SHANTHI Administration Levothyroxine Sodium 112 mcg 07/05/22 12:00 07/07/22 09:24 Levothyroxine 112 Mcg Tab FEEDTUBE 112 mcg QAM SHANTHI Administration Mirtazapine 15 mg 07/07/22 22:00 07/07/22 23:32 Mirtazapine 15 Mg Solutab PO 15 mg QHS SHANTHI Administration Multi-Ingred Cream/Lotion/Oil/Oint 1 applic 07/05/22 11:00 Mineral Oil/Petrolatum, White Ophth Oint 3.5 Gm OU Q4H PRN Dry Eye(s) Nicotine 21 mg 07/04/22 15:00 07/07/22 09:24 Nicotine 21 Mg/24 Hr Patch TD 21 mg QDAY SHANTHI Administration Ondansetron HCl 4 mg 06/28/22 03:09 06/28/22 05:44 Ondansetron 4 Mg/2 Ml Inj IV 4 mg Q8H PRN Administration Nausea And Vomiting Senna/Docusate Sodium 1 tab 07/05/22 11:00 07/07/22 12:28 Sennosides/Docusate Sodium 8.6/50 Mg Tab FEEDTUBE Not Given BID SHANTHI Simple Syrup 15 ml 07/05/22 11:00 Simple Syrup 15 Ml FEEDTUBE PRN PRN Hypoglycemia Simple Syrup 30 ml 07/05/22 11:00 Simple Syrup 15 Ml FEEDTUBE PRN PRN Hypoglycemia Sodium Bicarbonate 325 mg 07/05/22 10:26 Sodium Bicarbonate 325 Mg Tab FEEDTUBE PRN PRN For Clogged Feeding Tube Sodium Chloride 10 ml 06/28/22 10:00 07/07/22 09:27 Sodium Chloride 0.9% 10 Ml Flush Syringe IV 10 ml BID SHANTHI Administration Sodium Chloride 10 ml 06/28/22 03:09 Sodium Chloride 0.9% 10 Ml Flush Syringe IV PRN PRN LINE FLUSH Valproic Acid 250 mg 07/05/22 18:00 07/08/22 06:07 Valproic Acid 250 Mg/5 Ml Oral Liqd FEEDTUBE 250 mg Q6HR SHANTHI Administration Nutrition/Malnutrition Assess - Dietary Evaluation Nutrition/Malnutrition Findings: Nutrition Notes Start: 06/28/22 11:39 Freq: Status: Active Protocol: Document 07/07/22 13:47 CHRISTAL (Rec: 07/07/22 14:11 CHRISTAL [id number]) Nutrition Notes Initial or Follow up Reassessment Current Diagnosis COPD,Diabetes,Hypertension Other Pertinent Diagnosis S/p PEA/ROSC, s/p STEFFANIE, s/p DKA , DVT s/p LE Angioplasty. Current Diet TF-Vital High Protein @ 65 ml/ hr (from D 07/05). Labs/Tests 07/07: CO2 31, BUN 21. Pertinent Medications 07/07: Levothyroxine, Propofol @ 4.188 ml/hr (111Kcal), others nutritionally unremarkable. Height 5 ft 4 in Weight 139.6 kg [place] Body Weight (kg) 54.54 BMI 52.8 Weight change and time frame No body weight change reported in 9 days. Weight Status Morbidly Obese Subjective/Other Information RD consult for TF tolerance/ continuation assessment. TF continues as prescribed, no further information on TF tolerance at the time, will assess aF/U. Pt continues on Mechanical Ventilation, O2 saturation @ 98%, and will continue off sedation, according to Physical Assessment History notes. Pt has been producing 1 BM daily no more constipation at the time, according to Physical Assessment History notes. Percent of energy/protein needs met: Prescribed TF-Vital High Protein @ 65 ml/hr provides for energy/protein needs (1, 550 Kcal/136 g) during LOS, 101% Kcal; 100% AA. Burn Absent Trauma Absent GI Symptoms None Food Allergy No Skin Integrity/Comment Bilateral LE redness/echimosis . Current % PO Other Minimum of two criteria No Fluid Accumulation N/A Reduced Catering Manager Strength N/A (non-severe) Protein-Calorie Malnutrition N\A #2 Nutrition Diagnosis Inadequate oral intake Diagnosis Progress(for reassessment Continues documentation) #1 Nutrition Diagnosis Overweight/obesity Diagnosis Progress(for reassessment Continues documentation) Is patient on ventilator? Yes Is Patient Ambulatory and/or Out of Bed No REE-([facility]-confined to bed) 2392.512 Kcal/Kg value to use for calculation 11 Approximate Energy Requirements Using 1536 kcal/Kg Calculation Used for Recommendations Kcal/kg Additional Notes Protein: 1.2-2 g/Kg AdjBW; 115 -196 g/day. Fluids: 1 ml/Kcal, or as per MD. Nutrition Intervention Nutrition Support: Continue TF-Vital High Protein @ 65 ml/hr. Flush: 50 ml Q 4 hr, or as per MD. Kcal 1,550 Protein (gm) 136 Carbohydrates (gm) 174 Fat (gm) 36 Fluid (mL) 1,296 Fiber (gm) 0 % RDI: 101% Kcal; 100% AA. Goal #1 Provide at least 75% of energy /protein needs through Enteral Feeding during LOS. Follow-Up By: 07/13/22 Additional Comments Start monitoring TF tolerance, ventilation status, and BM.
--- NOTE | 2022-07-07 13:12 | Progress Note ---
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 Non-insulin dependent type II diabetes mellitus with hyperglycemia Hypertension Hyperlipidemia Hypothyroidism H/O COPD Bipolar Disorder Tobacco use disorder/Nicotine dependence Morbid obesity Daily SBTs as tolerated. When appropriate, plan to liberate from MVS CTA ordered by Vascular, pending -Titrate supplemental oxygen to keep SpO2 89-92% -VAP bundle addressed, aspiration precautions HOB>30 -Stress ulcer prophylaxis- Famotidine -VTE prophylaxis-on therapeutic Apixaban -Titrate Propofol to keep RASS 0 to -1 -Prn Fentanyl for analgesia, titrate to CPOT >3 -Daily SBT and SAT trials as tolerated, daily assessment for readiness to wean -ABG and CXR as clinically indicated -Enteric nutrition support, tube feeding -Mobility, off loading and frequent turning per facility protocol to prevent pressure ulcers -Trend temperature curve and WCC -Maintain euglycemia. Keep blood glucose 140-180mg/dL while critically ill. Avoid hypoglycemia -Monitor hemodynamics closely -Supportive transfusions as clinically indicated to keep HgB >7g/dL -Continue Nicotine patch and nicotine withdrawal precautions -Avoid nephrotxins, recent recovery from STEFFANIE/ATN -PICC for vasoactive drug administration Discussed with respiratory care, nursing care CONDITION: CRITICAL PROGNOSIS: GUARDED CODE STATUS: FULL CODE The high probability of a clinically significant, sudden or life threatening deterioration of the [multiple] system(s) required my full and direct attention, intervention and personal management. The aggregate critical care time was [35] minutes. This time is in addition to time spent performing reported procedures but includes the following: [x] Data Review and interpretation [x] Patient assessment and monitoring of vital signs [x] Documentation [x] Medication orders and management Subjective Date of service: 07/07/22 Principal diagnosis: AHRF; DKA; Hyperkalemia; COPD; ? cellulitis; PVD; STEFFANIE; Morbid obesity; ?JACKLYN Interval history: Patient is seen today for: Acute hypoxemic respiratory failure; DKA; Hyperkalemia; COPD; Possible cellulitis; PVD; STEFFANIE; Morbid obesity Seen and examined at bedside; 24hour events reviewed; nursing and respiratory care staff consulted; no adverse overnight events reported to me; s/p cardiac arrest ,asystole with ROSC. Intubated on MVS Off Propofol, Obeying some simple commands. Off Neosynephrine and Vasopressin Tolerated 2 hours od PSV at Psupp12, then became tachypnic, tachycardic with desaturations and placed back on full support Objective Vital Signs - 12hr 07/07/22 07/07/22 07/07/22 04:00 04:15 08:00 Temperature 98.6 F Pulse Rate 79 71 72 Pulse Rate [ 78 68 From Monitor] Respiratory 18 20 Rate Blood Pressure 143/64 104/52 O2 Sat by Pulse 98 94 98 Oximetry 07/07/22 07/07/22 07/07/22 09:00 11:50 12:00 Temperature Pulse Rate 76 84 78 Pulse Rate [ From Monitor] Respiratory 35 H Rate Blood Pressure 134/64 101/63 O2 Sat by Pulse 94 92 Oximetry Constitutional: no acute distress, other (orally intubated) Eyes: non-icteric ENT: oropharynx moist Neck: supple, no lymphadenopathy, no JVD, other (large circumference) Effort: mildly labored Ascultation: Bilateral: clear, diminished breath sounds Percussion: Bilateral: not dull Cardiovascular: regular rate and rhythm, other (S1S2) Gastrointestinal: normoactive bowel sounds, non-tender, tender, non-distended Integumentary: rash (shins), other (erythema to shins) Extremities: no cyanosis, pink and warm, no ischemia or petechiae, edema (trace to 1+) Neurologic: non-focal exam (grossly), pupils equal and round Psychiatric: mood appropriate, affect normal CBC and BMP: 07/08/22 05:00 07/08/22 05:00 ABG, PT/INR, D-dimer: ABG ABG pH 7.473 pH Units (7.350-7.450) H 07/07/22 04:13 ABG pCO2 41.8 mm Hg 07/07/22 04:13 ABG pO2 93.4 mm Hg (80.0-90.0) H 07/07/22 04:13 ABG O2 Saturation 97.5 % (95.0-99.0) 07/07/22 04:13 PT/INR, D-dimer PT 17.3 Sec. (12.2-14.9) H 07/02/22 20:28 INR 1.26 (0.87-1.13) H 07/02/22 20:28 Abnormal lab findings: Abnormal Labs 06/27/22 06/27/22 06/27/22 20:48 20:48 23:56 WBC 18.7 H RBC Hgb 15.1 H Hct 47.1 H Plt Count Lymph % (Auto) 6.3 L [place] % (Auto) Lymph # (Auto) [place] # (Auto) 0.9 H Seg Neutrophils % 88.6 H Seg Neuts % (Manual) Lymphocytes % (Manual) Seg Neutrophils # 16.5 H Seg Neutrophils # Man Lymphocytes # (Manual) PT INR APTT Heparin Anti-Xa Level ABG pH ABG pO2 ABG HCO3 ABG O2 Saturation ABG Base Excess ABG Hemoglobin Oxyhemoglobin Sodium 123 L 121 L Potassium 6.9 H* 6.4 H* Chloride 82.4 L 79.7 L Carbon Dioxide 7 L* 8 L* BUN 50 H 54 H Creatinine 2.2 H 2.5 H Glucose 578 H* 562 H* POC Glucose Hemoglobin A1c Calcium Phosphorus 10.40 H Magnesium 2.70 H 2.60 H AST 50 H Troponin T 0.080 H NT-Pro-B Natriuret Pep 4137 H Albumin 3.1 L Triglycerides 349 H LDL Cholesterol Direct 37 L HDL Cholesterol 38 L PTH Intact Urine Creatinine Urine Total Protein 06/28/22 06/28/22 06/28/22 01:45 03:17 03:35 WBC RBC Hgb Hct Plt Count Lymph % (Auto) [place] % (Auto) Lymph # (Auto) [place] # (Auto) Seg Neutrophils % Seg Neuts % (Manual) Lymphocytes % (Manual) Seg Neutrophils # Seg Neutrophils # Man Lymphocytes # (Manual) PT INR APTT Heparin Anti-Xa Level ABG pH ABG pO2 ABG HCO3 ABG O2 Saturation ABG Base Excess ABG Hemoglobin Oxyhemoglobin Sodium 120 L 121 L Potassium 6.2 H* 5.4 H Chloride 79.1 L 84.7 L Carbon Dioxide 7 L* 7 L* BUN 55 H 57 H Creatinine 2.6 H 2.6 H Glucose 551 H* 486 H POC Glucose 568 H Hemoglobin A1c Calcium 8.1 L 7.7 L Phosphorus Magnesium AST Troponin T NT-Pro-B Natriuret Pep Albumin Triglycerides LDL Cholesterol Direct HDL Cholesterol PTH Intact Urine Creatinine Urine Total Protein 09/15/22 09/15/22 09/15/22 03:35 04:05 05:13 WBC RBC Hgb Hct Plt Count Lymph % (Auto) [place] % (Auto) Lymph # (Auto) [place] # (Auto) Seg Neutrophils % Seg Neuts % (Manual) Lymphocytes % (Manual) Seg Neutrophils # Seg Neutrophils # Man Lymphocytes # (Manual) PT INR APTT Heparin Anti-Xa Level ABG pH ABG pO2 ABG HCO3 ABG O2 Saturation ABG Base Excess ABG Hemoglobin Oxyhemoglobin Sodium Potassium Chloride Carbon Dioxide BUN Creatinine Glucose POC Glucose 508 H 443 H Hemoglobin A1c Calcium Phosphorus 9.20 H Magnesium AST Troponin T NT-Pro-B Natriuret Pep Albumin Triglycerides LDL Cholesterol Direct HDL Cholesterol PTH Intact Urine Creatinine Urine Total Protein 06/28/22 06/28/22 06/28/22 05:40 06:30 07:39 WBC RBC Hgb Hct Plt Count Lymph % (Auto) [place] % (Auto) Lymph # (Auto) [place] # (Auto) Seg Neutrophils % Seg Neuts % (Manual) Lymphocytes % (Manual) Seg Neutrophils # Seg Neutrophils # Man Lymphocytes # (Manual) PT INR APTT Heparin Anti-Xa Level ABG pH ABG pO2 ABG HCO3 ABG O2 Saturation ABG Base Excess ABG Hemoglobin Oxyhemoglobin Sodium 124 L Potassium 5.1 H Chloride 86.5 L Carbon Dioxide 13 L BUN 59 H Creatinine 2.6 H Glucose 396 H POC Glucose 419 H 377 H Hemoglobin A1c Calcium 8.0 L Phosphorus Magnesium AST Troponin T NT-Pro-B Natriuret Pep Albumin Triglycerides LDL Cholesterol Direct HDL Cholesterol PTH Intact Urine Creatinine Urine Total Protein 06/28/22 06/28/22 06/28/22 08:10 08:18 09:32 WBC RBC Hgb Hct Plt Count Lymph % (Auto) [place] % (Auto) Lymph # (Auto) [place] # (Auto) Seg Neutrophils % Seg Neuts % (Manual) Lymphocytes % (Manual) Seg Neutrophils # Seg Neutrophils # Man Lymphocytes # (Manual) PT INR APTT Heparin Anti-Xa Level ABG pH ABG pO2 ABG HCO3 ABG O2 Saturation ABG Base Excess ABG Hemoglobin Oxyhemoglobin Sodium Potassium Chloride Carbon Dioxide BUN Creatinine Glucose POC Glucose 390 H 347 H Hemoglobin A1c Calcium Phosphorus Magnesium AST Troponin T NT-Pro-B Natriuret Pep Albumin Triglycerides LDL Cholesterol Direct HDL Cholesterol PTH Intact Urine Creatinine 85.4 H Urine Total Protein 49 H 06/28/22 06/28/22 06/28/22 10:46 11:40 12:40 WBC RBC Hgb Hct Plt Count Lymph % (Auto) [place] % (Auto) Lymph # (Auto) [place] # (Auto) Seg Neutrophils % Seg Neuts % (Manual) Lymphocytes % (Manual) Seg Neutrophils # Seg Neutrophils # Man Lymphocytes # (Manual) PT INR APTT Heparin Anti-Xa Level ABG pH ABG pO2 ABG HCO3 ABG O2 Saturation ABG Base Excess ABG Hemoglobin Oxyhemoglobin Sodium Potassium Chloride Carbon Dioxide BUN Creatinine Glucose POC Glucose 313 H 274 H 258 H Hemoglobin A1c Calcium Phosphorus Magnesium AST Troponin T NT-Pro-B Natriuret Pep Albumin Triglycerides LDL Cholesterol Direct HDL Cholesterol PTH Intact Urine Creatinine Urine Total Protein 06/28/22 06/28/22 06/28/22 13:38 14:13 14:13 WBC 19.7 H RBC 5.33 H Hgb 16.2 H Hct 49.4 H Plt Count Lymph % (Auto) [place] % (Auto) Lymph # (Auto) [place] # (Auto) Seg Neutrophils % Seg Neuts % (Manual) Lymphocytes % (Manual) Seg Neutrophils # Seg Neutrophils # Man Lymphocytes # (Manual) PT INR APTT Heparin Anti-Xa Level ABG pH ABG pO2 ABG HCO3 ABG O2 Saturation ABG Base Excess ABG Hemoglobin Oxyhemoglobin Sodium 125 L Potassium 5.4 H Chloride 87.6 L Carbon Dioxide 18 L BUN 58 H Creatinine 2.5 H Glucose 199 H POC Glucose 205 H Hemoglobin A1c Calcium Phosphorus 6.90 H D Magnesium AST Troponin T NT-Pro-B Natriuret Pep Albumin Triglycerides LDL Cholesterol Direct HDL Cholesterol PTH Intact Urine Creatinine Urine Total Protein 06/28/22 06/28/22 06/28/22 14:56 15:07 15:07 WBC RBC Hgb 15.5 H Hct 46.8 H Plt Count Lymph % (Auto) [place] % (Auto) Lymph # (Auto) [place] # (Auto) Seg Neutrophils % Seg Neuts % (Manual) Lymphocytes % (Manual) Seg Neutrophils # Seg Neutrophils # Man Lymphocytes # (Manual) PT INR APTT Heparin Anti-Xa Level ABG pH ABG pO2 ABG HCO3 ABG O2 Saturation ABG Base Excess ABG Hemoglobin Oxyhemoglobin Sodium 128 L Potassium 5.3 H Chloride 94.0 L Carbon Dioxide 14 L BUN 59 H Creatinine 2.4 H Glucose 183 H POC Glucose 194 H Hemoglobin A1c Calcium 7.8 L Phosphorus Magnesium AST Troponin T NT-Pro-B Natriuret Pep Albumin Triglycerides LDL Cholesterol Direct HDL Cholesterol PTH Intact Urine Creatinine Urine Total Protein 06/28/22 06/28/22 06/28/22 15:07 15:54 17:10 WBC RBC Hgb Hct Plt Count Lymph % (Auto) [place] % (Auto) Lymph # (Auto) [place] # (Auto) Seg Neutrophils % Seg Neuts % (Manual) Lymphocytes % (Manual) Seg Neutrophils # Seg Neutrophils # Man Lymphocytes # (Manual) PT 19.6 H INR 1.47 H APTT Heparin Anti-Xa Level ABG pH ABG pO2 ABG HCO3 ABG O2 Saturation ABG Base Excess ABG Hemoglobin Oxyhemoglobin Sodium Potassium Chloride Carbon Dioxide BUN Creatinine Glucose POC Glucose 189 H 216 H Hemoglobin A1c Calcium Phosphorus Magnesium AST Troponin T NT-Pro-B Natriuret Pep Albumin Triglycerides LDL Cholesterol Direct HDL Cholesterol PTH Intact Urine Creatinine Urine Total Protein 06/28/22 06/28/22 06/28/22 17:59 18:54 19:49 WBC RBC Hgb Hct Plt Count Lymph % (Auto) [place] % (Auto) Lymph # (Auto) [place] # (Auto) Seg Neutrophils % Seg Neuts % (Manual) Lymphocytes % (Manual) Seg Neutrophils # Seg Neutrophils # Man Lymphocytes # (Manual) PT INR APTT Heparin Anti-Xa Level ABG pH ABG pO2 ABG HCO3 ABG O2 Saturation ABG Base Excess ABG Hemoglobin Oxyhemoglobin Sodium Potassium Chloride Carbon Dioxide BUN Creatinine Glucose POC Glucose 195 H 178 H 166 H Hemoglobin A1c Calcium Phosphorus Magnesium AST Troponin T NT-Pro-B Natriuret Pep Albumin Triglycerides LDL Cholesterol Direct HDL Cholesterol PTH Intact Urine Creatinine Urine Total Protein 06/28/22 06/28/22 06/28/22 20:31 20:31 20:31 WBC RBC Hgb Hct Plt Count Lymph % (Auto) [place] % (Auto) Lymph # (Auto) [place] # (Auto) Seg Neutrophils % Seg Neuts % (Manual) Lymphocytes % (Manual) Seg Neutrophils # Seg Neutrophils # Man Lymphocytes # (Manual) PT INR APTT Heparin Anti-Xa Level 0.19 L ABG pH ABG pO2 ABG HCO3 ABG O2 Saturation ABG Base Excess ABG Hemoglobin Oxyhemoglobin Sodium 129 L Potassium 5.1 H Chloride 95.6 L Carbon Dioxide 15 L BUN 59 H Creatinine 2.4 H Glucose 145 H POC Glucose Hemoglobin A1c 9.7 H Calcium 8.0 L Phosphorus 6.40 H Magnesium AST Troponin T NT-Pro-B Natriuret Pep Albumin Triglycerides LDL Cholesterol Direct HDL Cholesterol PTH Intact Urine Creatinine Urine Total Protein 06/28/22 06/28/22 06/28/22 21:27 22:22 23:36 WBC RBC Hgb Hct Plt Count Lymph % (Auto) [place] % (Auto) Lymph # (Auto) [place] # (Auto) Seg Neutrophils % Seg Neuts % (Manual) Lymphocytes % (Manual) Seg Neutrophils # Seg Neutrophils # Man Lymphocytes # (Manual) PT INR APTT Heparin Anti-Xa Level ABG pH ABG pO2 ABG HCO3 ABG O2 Saturation ABG Base Excess ABG Hemoglobin Oxyhemoglobin Sodium Potassium Chloride Carbon Dioxide BUN Creatinine Glucose POC Glucose 131 H 148 H 146 H Hemoglobin A1c Calcium Phosphorus Magnesium AST Troponin T NT-Pro-B Natriuret Pep Albumin Triglycerides LDL Cholesterol Direct HDL Cholesterol PTH Intact Urine Creatinine Urine Total Protein 06/29/22 06/29/22 06/29/22 00:21 01:27 02:54 WBC RBC Hgb Hct Plt Count Lymph % (Auto) [place] % (Auto) Lymph # (Auto) [place] # (Auto) Seg Neutrophils % Seg Neuts % (Manual) Lymphocytes % (Manual) Seg Neutrophils # Seg Neutrophils # Man Lymphocytes # (Manual) PT INR APTT Heparin Anti-Xa Level ABG pH ABG pO2 ABG HCO3 ABG O2 Saturation ABG Base Excess ABG Hemoglobin Oxyhemoglobin Sodium Potassium Chloride Carbon Dioxide BUN Creatinine Glucose POC Glucose 149 H 172 H 172 H Hemoglobin A1c Calcium Phosphorus Magnesium AST Troponin T NT-Pro-B Natriuret Pep Albumin Triglycerides LDL Cholesterol Direct HDL Cholesterol PTH Intact Urine Creatinine Urine Total Protein 06/29/22 06/29/22 06/29/22 04:05 04:21 04:21 WBC 17.1 H RBC Hgb 14.6 H Hct 43.9 H Plt Count Lymph % (Auto) [place] % (Auto) Lymph # (Auto) [place] # (Auto) Seg Neutrophils % Seg Neuts % (Manual) Lymphocytes % (Manual) Seg Neutrophils # Seg Neutrophils # Man Lymphocytes # (Manual) PT INR APTT Heparin Anti-Xa Level ABG pH ABG pO2 ABG HCO3 ABG O2 Saturation ABG Base Excess ABG Hemoglobin Oxyhemoglobin Sodium 129 L Potassium Chloride 97.6 L Carbon Dioxide 15 L BUN 59 H Creatinine 2.1 H Glucose 140 H POC Glucose 167 H Hemoglobin A1c Calcium 8.0 L Phosphorus Magnesium AST Troponin T NT-Pro-B Natriuret Pep Albumin Triglycerides LDL Cholesterol Direct HDL Cholesterol PTH Intact Urine Creatinine Urine Total Protein 06/29/22 06/29/22 06/29/22 04:21 06:27 07:31 WBC RBC Hgb Hct Plt Count Lymph % (Auto) [place] % (Auto) Lymph # (Auto) [place] # (Auto) Seg Neutrophils % Seg Neuts % (Manual) Lymphocytes % (Manual) Seg Neutrophils # Seg Neutrophils # Man Lymphocytes # (Manual) PT INR APTT Heparin Anti-Xa Level ABG pH ABG pO2 ABG HCO3 ABG O2 Saturation ABG Base Excess ABG Hemoglobin Oxyhemoglobin Sodium Potassium Chloride Carbon Dioxide BUN Creatinine Glucose POC Glucose 138 H 142 H Hemoglobin A1c Calcium Phosphorus Magnesium AST Troponin T NT-Pro-B Natriuret Pep Albumin Triglycerides LDL Cholesterol Direct HDL Cholesterol PTH Intact 382.4 H Urine Creatinine Urine Total Protein 06/29/22 06/29/22 06/29/22 08:33 09:28 10:35 WBC RBC Hgb Hct Plt Count Lymph % (Auto) [place] % (Auto) Lymph # (Auto) [place] # (Auto) Seg Neutrophils % Seg Neuts % (Manual) Lymphocytes % (Manual) Seg Neutrophils # Seg Neutrophils # Man Lymphocytes # (Manual) PT INR APTT Heparin Anti-Xa Level ABG pH ABG pO2 ABG HCO3 ABG O2 Saturation ABG Base Excess ABG Hemoglobin Oxyhemoglobin Sodium Potassium Chloride Carbon Dioxide BUN Creatinine Glucose POC Glucose 141 H 167 H 152 H Hemoglobin A1c Calcium Phosphorus Magnesium AST Troponin T NT-Pro-B Natriuret Pep Albumin Triglycerides LDL Cholesterol Direct HDL Cholesterol PTH Intact Urine Creatinine Urine Total Protein 06/29/22 06/29/22 06/29/22 10:47 11:30 12:33 WBC RBC Hgb Hct Plt Count Lymph % (Auto) [place] % (Auto) Lymph # (Auto) [place] # (Auto) Seg Neutrophils % Seg Neuts % (Manual) Lymphocytes % (Manual) Seg Neutrophils # Seg Neutrophils # Man Lymphocytes # (Manual) PT INR APTT Heparin Anti-Xa Level ABG pH ABG pO2 ABG HCO3 ABG O2 Saturation ABG Base Excess ABG Hemoglobin Oxyhemoglobin Sodium 131 L Potassium Chloride 94.4 L Carbon Dioxide 15 L BUN 59 H Creatinine 2.2 H Glucose 149 H POC Glucose 134 H 146 H Hemoglobin A1c Calcium Phosphorus 5.80 H Magnesium AST Troponin T NT-Pro-B Natriuret Pep Albumin Triglycerides LDL Cholesterol Direct HDL Cholesterol PTH Intact Urine Creatinine Urine Total Protein 06/29/22 06/29/22 06/29/22 13:28 14:33 15:49 WBC RBC Hgb Hct Plt Count Lymph % (Auto) [place] % (Auto) Lymph # (Auto) [place] # (Auto) Seg Neutrophils % Seg Neuts % (Manual) Lymphocytes % (Manual) Seg Neutrophils # Seg Neutrophils # Man Lymphocytes # (Manual) PT INR APTT Heparin Anti-Xa Level ABG pH ABG pO2 ABG HCO3 ABG O2 Saturation ABG Base Excess ABG Hemoglobin Oxyhemoglobin Sodium Potassium Chloride Carbon Dioxide BUN Creatinine Glucose POC Glucose 170 H 188 H 155 H Hemoglobin A1c Calcium Phosphorus Magnesium AST Troponin T NT-Pro-B Natriuret Pep Albumin Triglycerides LDL Cholesterol Direct HDL Cholesterol PTH Intact Urine Creatinine Urine Total Protein 06/29/22 06/29/22 06/29/22 16:14 16:14 16:45 WBC RBC Hgb Hct Plt Count Lymph % (Auto) [place] % (Auto) Lymph # (Auto) [place] # (Auto) Seg Neutrophils % Seg Neuts % (Manual) Lymphocytes % (Manual) Seg Neutrophils # Seg Neutrophils # Man Lymphocytes # (Manual) PT INR APTT Heparin Anti-Xa Level 0.19 L ABG pH ABG pO2 ABG HCO3 ABG O2 Saturation ABG Base Excess ABG Hemoglobin Oxyhemoglobin Sodium 128 L Potassium Chloride 95.8 L Carbon Dioxide 15 L BUN 52 H Creatinine 1.8 H Glucose 138 H POC Glucose 135 H Hemoglobin A1c Calcium 7.9 L Phosphorus Magnesium AST Troponin T NT-Pro-B Natriuret Pep Albumin Triglycerides LDL Cholesterol Direct HDL Cholesterol PTH Intact Urine Creatinine Urine Total Protein 06/29/22 06/29/22 06/29/22 17:47 18:52 20:14 WBC RBC Hgb Hct Plt Count Lymph % (Auto) [place] % (Auto) Lymph # (Auto) [place] # (Auto) Seg Neutrophils % Seg Neuts % (Manual) Lymphocytes % (Manual) Seg Neutrophils # Seg Neutrophils # Man Lymphocytes # (Manual) PT INR APTT Heparin Anti-Xa Level ABG pH ABG pO2 ABG HCO3 ABG O2 Saturation ABG Base Excess ABG Hemoglobin Oxyhemoglobin Sodium Potassium Chloride Carbon Dioxide BUN Creatinine Glucose POC Glucose 150 H 123 H 155 H Hemoglobin A1c Calcium Phosphorus Magnesium AST Troponin T NT-Pro-B Natriuret Pep Albumin Triglycerides LDL Cholesterol Direct HDL Cholesterol PTH Intact Urine Creatinine Urine Total Protein 06/29/22 06/29/22 06/29/22 20:17 21:11 21:53 WBC RBC Hgb Hct Plt Count Lymph % (Auto) [place] % (Auto) Lymph # (Auto) [place] # (Auto) Seg Neutrophils % Seg Neuts % (Manual) Lymphocytes % (Manual) Seg Neutrophils # Seg Neutrophils # Man Lymphocytes # (Manual) PT INR APTT Heparin Anti-Xa Level ABG pH ABG pO2 ABG HCO3 ABG O2 Saturation ABG Base Excess ABG Hemoglobin Oxyhemoglobin Sodium 131 L Potassium 5.5 H D Chloride Carbon Dioxide 15 L BUN 56 H Creatinine 2.0 H Glucose 146 H POC Glucose 152 H 165 H Hemoglobin A1c Calcium Phosphorus 5.20 H Magnesium AST Troponin T NT-Pro-B Natriuret Pep Albumin Triglycerides LDL Cholesterol Direct HDL Cholesterol PTH Intact Urine Creatinine Urine Total Protein 06/29/22 06/30/22 06/30/22 23:07 00:18 00:58 WBC RBC Hgb Hct Plt Count Lymph % (Auto) [place] % (Auto) Lymph # (Auto) [place] # (Auto) Seg Neutrophils % Seg Neuts % (Manual) Lymphocytes % (Manual) Seg Neutrophils # Seg Neutrophils # Man Lymphocytes # (Manual) PT INR APTT Heparin Anti-Xa Level ABG pH ABG pO2 ABG HCO3 ABG O2 Saturation ABG Base Excess ABG Hemoglobin Oxyhemoglobin Sodium Potassium Chloride Carbon Dioxide BUN Creatinine Glucose POC Glucose 163 H 178 H 189 H Hemoglobin A1c Calcium Phosphorus Magnesium AST Troponin T NT-Pro-B Natriuret Pep Albumin Triglycerides LDL Cholesterol Direct HDL Cholesterol PTH Intact Urine Creatinine Urine Total Protein 06/30/22 06/30/22 06/30/22 01:57 02:59 03:53 WBC RBC Hgb Hct Plt Count Lymph % (Auto) [place] % (Auto) Lymph # (Auto) [place] # (Auto) Seg Neutrophils % Seg Neuts % (Manual) Lymphocytes % (Manual) Seg Neutrophils # Seg Neutrophils # Man Lymphocytes # (Manual) PT INR APTT Heparin Anti-Xa Level ABG pH ABG pO2 ABG HCO3 ABG O2 Saturation ABG Base Excess ABG Hemoglobin Oxyhemoglobin Sodium Potassium Chloride Carbon Dioxide BUN Creatinine Glucose POC Glucose 150 H 147 H 122 H Hemoglobin A1c Calcium Phosphorus Magnesium AST Troponin T NT-Pro-B Natriuret Pep Albumin Triglycerides LDL Cholesterol Direct HDL Cholesterol PTH Intact Urine Creatinine Urine Total Protein 06/30/22 06/30/22 06/30/22 04:56 05:25 05:52 WBC RBC Hgb Hct Plt Count Lymph % (Auto) [place] % (Auto) Lymph # (Auto) [place] # (Auto) Seg Neutrophils % Seg Neuts % (Manual) Lymphocytes % (Manual) Seg Neutrophils # Seg Neutrophils # Man Lymphocytes # (Manual) PT INR APTT Heparin Anti-Xa Level ABG pH ABG pO2 ABG HCO3 ABG O2 Saturation ABG Base Excess ABG Hemoglobin Oxyhemoglobin Sodium 132 L Potassium Chloride Carbon Dioxide 15 L BUN 53 H Creatinine 1.7 H Glucose 137 H POC Glucose 110 H 150 H Hemoglobin A1c Calcium Phosphorus Magnesium AST Troponin T NT-Pro-B Natriuret Pep Albumin Triglycerides LDL Cholesterol Direct HDL Cholesterol PTH Intact Urine Creatinine Urine Total Protein 06/30/22 06/30/22 06/30/22 07:25 08:20 09:20 WBC RBC Hgb Hct Plt Count Lymph % (Auto) [place] % (Auto) Lymph # (Auto) [place] # (Auto) Seg Neutrophils % Seg Neuts % (Manual) Lymphocytes % (Manual) Seg Neutrophils # Seg Neutrophils # Man Lymphocytes # (Manual) PT INR APTT Heparin Anti-Xa Level ABG pH ABG pO2 ABG HCO3 ABG O2 Saturation ABG Base Excess ABG Hemoglobin Oxyhemoglobin Sodium Potassium Chloride Carbon Dioxide BUN Creatinine Glucose POC Glucose 133 H 119 H 128 H Hemoglobin A1c Calcium Phosphorus Magnesium AST Troponin T NT-Pro-B Natriuret Pep Albumin Triglycerides LDL Cholesterol Direct HDL Cholesterol PTH Intact Urine Creatinine Urine Total Protein 06/30/22 06/30/22 06/30/22 10:21 10:59 11:25 WBC RBC Hgb Hct Plt Count Lymph % (Auto) [place] % (Auto) Lymph # (Auto) [place] # (Auto) Seg Neutrophils % Seg Neuts % (Manual) Lymphocytes % (Manual) Seg Neutrophils # Seg Neutrophils # Man Lymphocytes # (Manual) PT INR APTT Heparin Anti-Xa Level ABG pH ABG pO2 ABG HCO3 ABG O2 Saturation ABG Base Excess ABG Hemoglobin Oxyhemoglobin Sodium 132 L Potassium Chloride Carbon Dioxide 16 L BUN 49 H Creatinine 1.7 H Glucose 168 H POC Glucose 133 H 232 H Hemoglobin A1c Calcium 8.1 L Phosphorus Magnesium AST Troponin T NT-Pro-B Natriuret Pep Albumin Triglycerides LDL Cholesterol Direct HDL Cholesterol PTH Intact Urine Creatinine Urine Total Protein 06/30/22 06/30/22 07/01/22 16:15 21:30 05:10 WBC RBC Hgb Hct Plt Count Lymph % (Auto) [place] % (Auto) Lymph # (Auto) [place] # (Auto) Seg Neutrophils % Seg Neuts % (Manual) Lymphocytes % (Manual) Seg Neutrophils # Seg Neutrophils # Man Lymphocytes # (Manual) PT INR APTT Heparin Anti-Xa Level 0.24 L ABG pH ABG pO2 ABG HCO3 ABG O2 Saturation ABG Base Excess ABG Hemoglobin Oxyhemoglobin Sodium Potassium Chloride Carbon Dioxide BUN Creatinine Glucose POC Glucose 325 H 279 H Hemoglobin A1c Calcium Phosphorus Magnesium AST Troponin T NT-Pro-B Natriuret Pep Albumin Triglycerides LDL Cholesterol Direct HDL Cholesterol PTH Intact Urine Creatinine Urine Total Protein 07/01/22 07/01/22 07/01/22 05:10 07:38 09:13 WBC RBC Hgb Hct Plt Count Lymph % (Auto) [place] % (Auto) Lymph # (Auto) [place] # (Auto) Seg Neutrophils % Seg Neuts % (Manual) Lymphocytes % (Manual) Seg Neutrophils # Seg Neutrophils # Man Lymphocytes # (Manual) PT 15.9 H INR 1.14 H APTT Heparin Anti-Xa Level ABG pH ABG pO2 ABG HCO3 ABG O2 Saturation ABG Base Excess ABG Hemoglobin Oxyhemoglobin Sodium 132 L Potassium Chloride 97.8 L Carbon Dioxide 19 L BUN 34 H Creatinine 1.3 H Glucose 250 H POC Glucose 235 H Hemoglobin A1c Calcium Phosphorus Magnesium AST Troponin T NT-Pro-B Natriuret Pep Albumin Triglycerides LDL Cholesterol Direct HDL Cholesterol PTH Intact Urine Creatinine Urine Total Protein 07/01/22 07/01/22 07/01/22 12:03 13:42 16:32 WBC RBC Hgb Hct Plt Count Lymph % (Auto) [place] % (Auto) Lymph # (Auto) [place] # (Auto) Seg Neutrophils % Seg Neuts % (Manual) Lymphocytes % (Manual) Seg Neutrophils # Seg Neutrophils # Man Lymphocytes # (Manual) PT INR APTT Heparin Anti-Xa Level 0.25 L ABG pH ABG pO2 ABG HCO3 ABG O2 Saturation ABG Base Excess ABG Hemoglobin Oxyhemoglobin Sodium Potassium Chloride Carbon Dioxide BUN Creatinine Glucose POC Glucose 272 H 316 H Hemoglobin A1c Calcium Phosphorus Magnesium AST Troponin T NT-Pro-B Natriuret Pep Albumin Triglycerides LDL Cholesterol Direct HDL Cholesterol PTH Intact Urine Creatinine Urine Total Protein 07/01/22 07/01/22 07/02/22 21:21 23:14 07:41 WBC RBC Hgb Hct Plt Count Lymph % (Auto) [place] % (Auto) Lymph # (Auto) [place] # (Auto) Seg Neutrophils % Seg Neuts % (Manual) Lymphocytes % (Manual) Seg Neutrophils # Seg Neutrophils # Man Lymphocytes # (Manual) PT INR APTT Heparin Anti-Xa Level 0.27 L ABG pH ABG pO2 ABG HCO3 ABG O2 Saturation ABG Base Excess ABG Hemoglobin Oxyhemoglobin Sodium Potassium Chloride Carbon Dioxide BUN Creatinine Glucose POC Glucose 262 H 287 H Hemoglobin A1c Calcium Phosphorus Magnesium AST Troponin T NT-Pro-B Natriuret Pep Albumin Triglycerides LDL Cholesterol Direct HDL Cholesterol PTH Intact Urine Creatinine Urine Total Protein 07/02/22 07/02/22 07/02/22 08:12 08:12 20:28 WBC RBC Hgb 14.7 H Hct 46.3 H Plt Count 138 L Lymph % (Auto) [place] % (Auto) Lymph # (Auto) [place] # (Auto) Seg Neutrophils % Seg Neuts % (Manual) Lymphocytes % (Manual) Seg Neutrophils # Seg Neutrophils # Man Lymphocytes # (Manual) PT INR APTT Heparin Anti-Xa Level 0.21 L ABG pH ABG pO2 ABG HCO3 ABG O2 Saturation ABG Base Excess ABG Hemoglobin Oxyhemoglobin Sodium 129 L Potassium Chloride 95.7 L Carbon Dioxide 17 L BUN 24 H Creatinine Glucose 275 H POC Glucose Hemoglobin A1c Calcium Phosphorus 2.10 L D Magnesium AST Troponin T NT-Pro-B Natriuret Pep Albumin Triglycerides LDL Cholesterol Direct HDL Cholesterol PTH Intact Urine Creatinine Urine Total Protein 07/02/22 07/02/22 07/03/22 20:28 23:01 07:28 WBC RBC Hgb Hct Plt Count Lymph % (Auto) [place] % (Auto) Lymph # (Auto) [place] # (Auto) Seg Neutrophils % Seg Neuts % (Manual) Lymphocytes % (Manual) Seg Neutrophils # Seg Neutrophils # Man Lymphocytes # (Manual) PT 17.3 H INR 1.26 H APTT 24.1 L Heparin Anti-Xa Level ABG pH ABG pO2 ABG HCO3 ABG O2 Saturation ABG Base Excess ABG Hemoglobin Oxyhemoglobin Sodium Potassium Chloride Carbon Dioxide BUN Creatinine Glucose POC Glucose 340 H 261 H Hemoglobin A1c Calcium Phosphorus Magnesium AST Troponin T NT-Pro-B Natriuret Pep Albumin Triglycerides LDL Cholesterol Direct HDL Cholesterol PTH Intact Urine Creatinine Urine Total Protein 07/03/22 07/03/22 07/03/22 11:30 12:20 16:23 WBC RBC Hgb Hct Plt Count Lymph % (Auto) [place] % (Auto) Lymph # (Auto) [place] # (Auto) Seg Neutrophils % Seg Neuts % (Manual) Lymphocytes % (Manual) Seg Neutrophils # Seg Neutrophils # Man Lymphocytes # (Manual) PT INR APTT Heparin Anti-Xa Level ABG pH ABG pO2 ABG HCO3 ABG O2 Saturation ABG Base Excess ABG Hemoglobin Oxyhemoglobin Sodium 134 L Potassium Chloride Carbon Dioxide BUN 18 H Creatinine Glucose 271 H POC Glucose 292 H 255 H Hemoglobin A1c Calcium Phosphorus Magnesium AST Troponin T NT-Pro-B Natriuret Pep Albumin Triglycerides LDL Cholesterol Direct HDL Cholesterol PTH Intact Urine Creatinine Urine Total Protein 07/03/22 07/04/22 07/04/22 22:01 05:37 05:37 WBC RBC Hgb Hct Plt Count Lymph % (Auto) 8.4 L [place] % (Auto) 10.1 H Lymph # (Auto) 0.8 L [place] # (Auto) 1.0 H Seg Neutrophils % 80.6 H Seg Neuts % (Manual) Lymphocytes % (Manual) Seg Neutrophils # 8.0 H Seg Neutrophils # Man Lymphocytes # (Manual) PT INR APTT Heparin Anti-Xa Level ABG pH ABG pO2 ABG HCO3 ABG O2 Saturation ABG Base Excess ABG Hemoglobin Oxyhemoglobin Sodium Potassium Chloride Carbon Dioxide BUN Creatinine Glucose 217 H POC Glucose 281 H Hemoglobin A1c Calcium Phosphorus Magnesium AST Troponin T NT-Pro-B Natriuret Pep Albumin Triglycerides LDL Cholesterol Direct HDL Cholesterol PTH Intact Urine Creatinine Urine Total Protein 07/04/22 07/04/22 07/04/22 07:40 11:15 11:52 WBC RBC Hgb Hct Plt Count Lymph % (Auto) [place] % (Auto) Lymph # (Auto) [place] # (Auto) Seg Neutrophils % Seg Neuts % (Manual) Lymphocytes % (Manual) Seg Neutrophils # Seg Neutrophils # Man Lymphocytes # (Manual) PT INR APTT Heparin Anti-Xa Level ABG pH 7.303 L ABG pO2 64.6 L ABG HCO3 ABG O2 Saturation 92.9 L ABG Base Excess ABG Hemoglobin 11.9 L Oxyhemoglobin 90.6 L Sodium Potassium Chloride Carbon Dioxide BUN Creatinine Glucose POC Glucose 211 H 267 H Hemoglobin A1c Calcium Phosphorus Magnesium AST Troponin T NT-Pro-B Natriuret Pep Albumin Triglycerides LDL Cholesterol Direct HDL Cholesterol PTH Intact Urine Creatinine Urine Total Protein 07/04/22 07/04/22 07/05/22 16:51 22:03 07:48 WBC RBC Hgb Hct Plt Count Lymph % (Auto) [place] % (Auto) Lymph # (Auto) [place] # (Auto) Seg Neutrophils % Seg Neuts % (Manual) Lymphocytes % (Manual) Seg Neutrophils # Seg Neutrophils # Man Lymphocytes # (Manual) PT INR APTT Heparin Anti-Xa Level ABG pH ABG pO2 ABG HCO3 ABG O2 Saturation ABG Base Excess ABG Hemoglobin Oxyhemoglobin Sodium Potassium Chloride Carbon Dioxide BUN Creatinine Glucose POC Glucose 273 H 202 H 223 H Hemoglobin A1c Calcium Phosphorus Magnesium AST Troponin T NT-Pro-B Natriuret Pep Albumin Triglycerides LDL Cholesterol Direct HDL Cholesterol PTH Intact Urine Creatinine Urine Total Protein 07/05/22 07/05/22 07/05/22 11:06 18:03 Unknown WBC 16.5 H RBC Hgb Hct Plt Count Lymph % (Auto) [place] % (Auto) Lymph # (Auto) [place] # (Auto) Seg Neutrophils % Seg Neuts % (Manual) 91.0 H Lymphocytes % (Manual) 1.0 L Seg Neutrophils # Seg Neutrophils # Man 15.0 H Lymphocytes # (Manual) 0.2 L PT INR APTT Heparin Anti-Xa Level ABG pH 7.313 L ABG pO2 102.1 H ABG HCO3 27.2 H ABG O2 Saturation ABG Base Excess ABG Hemoglobin 10.6 L Oxyhemoglobin Sodium Potassium Chloride Carbon Dioxide BUN Creatinine Glucose POC Glucose 219 H Hemoglobin A1c Calcium Phosphorus Magnesium AST Troponin T NT-Pro-B Natriuret Pep Albumin Triglycerides LDL Cholesterol Direct HDL Cholesterol PTH Intact Urine Creatinine Urine Total Protein 07/05/22 07/06/22 07/06/22 Unknown 00:30 03:33 WBC RBC Hgb Hct Plt Count Lymph % (Auto) [place] % (Auto) Lymph # (Auto) [place] # (Auto) Seg Neutrophils % Seg Neuts % (Manual) Lymphocytes % (Manual) Seg Neutrophils # Seg Neutrophils # Man Lymphocytes # (Manual) PT INR APTT Heparin Anti-Xa Level ABG pH ABG pO2 142.7 H ABG HCO3 28.9 H ABG O2 Saturation ABG Base Excess 3.6 H ABG Hemoglobin 10.5 L Oxyhemoglobin Sodium Potassium Chloride Carbon Dioxide BUN Creatinine Glucose 290 H POC Glucose 199 H Hemoglobin A1c Calcium Phosphorus Magnesium AST Troponin T NT-Pro-B Natriuret Pep Albumin Triglycerides LDL Cholesterol Direct HDL Cholesterol PTH Intact Urine Creatinine Urine Total Protein 07/06/22 07/06/22 07/06/22 04:00 04:00 06:00 WBC 11.4 H RBC 3.55 L Hgb Hct Plt Count Lymph % (Auto) [place] % (Auto) Lymph # (Auto) [place] # (Auto) Seg Neutrophils % Seg Neuts % (Manual) Lymphocytes % (Manual) Seg Neutrophils # Seg Neutrophils # Man Lymphocytes # (Manual) PT INR APTT Heparin Anti-Xa Level ABG pH ABG pO2 ABG HCO3 ABG O2 Saturation ABG Base Excess ABG Hemoglobin Oxyhemoglobin Sodium Potassium Chloride Carbon Dioxide BUN 22 H Creatinine 1.3 H Glucose 173 H POC Glucose 180 H Hemoglobin A1c Calcium Phosphorus Magnesium AST Troponin T NT-Pro-B Natriuret Pep Albumin Triglycerides LDL Cholesterol Direct HDL Cholesterol PTH Intact Urine Creatinine Urine Total Protein 07/06/22 07/06/22 07/06/22 09:19 12:39 17:30 WBC RBC Hgb Hct Plt Count Lymph % (Auto) [place] % (Auto) Lymph # (Auto) [place] # (Auto) Seg Neutrophils % Seg Neuts % (Manual) Lymphocytes % (Manual) Seg Neutrophils # Seg Neutrophils # Man Lymphocytes # (Manual) PT INR APTT Heparin Anti-Xa Level ABG pH ABG pO2 ABG HCO3 ABG O2 Saturation ABG Base Excess ABG Hemoglobin Oxyhemoglobin Sodium Potassium Chloride Carbon Dioxide BUN Creatinine Glucose POC Glucose 198 H 179 H 106 H Hemoglobin A1c Calcium Phosphorus Magnesium AST Troponin T NT-Pro-B Natriuret Pep Albumin Triglycerides LDL Cholesterol Direct HDL Cholesterol PTH Intact Urine Creatinine Urine Total Protein 07/06/22 07/06/22 07/07/22 20:59 23:30 03:02 WBC RBC Hgb Hct Plt Count Lymph % (Auto) [place] % (Auto) Lymph # (Auto) [place] # (Auto) Seg Neutrophils % Seg Neuts % (Manual) Lymphocytes % (Manual) Seg Neutrophils # Seg Neutrophils # Man Lymphocytes # (Manual) PT INR APTT Heparin Anti-Xa Level ABG pH ABG pO2 ABG HCO3 ABG O2 Saturation ABG Base Excess ABG Hemoglobin Oxyhemoglobin Sodium Potassium Chloride Carbon Dioxide BUN Creatinine Glucose POC Glucose 152 H 126 H 135 H Hemoglobin A1c Calcium Phosphorus Magnesium AST Troponin T NT-Pro-B Natriuret Pep Albumin Triglycerides LDL Cholesterol Direct HDL Cholesterol PTH Intact Urine Creatinine Urine Total Protein 07/07/22 07/07/22 07/07/22 04:13 05:35 05:35 WBC RBC 3.13 L Hgb 9.7 L Hct 28.7 L Plt Count Lymph % (Auto) [place] % (Auto) Lymph # (Auto) [place] # (Auto) Seg Neutrophils % Seg Neuts % (Manual) Lymphocytes % (Manual) Seg Neutrophils # Seg Neutrophils # Man Lymphocytes # (Manual) PT INR APTT Heparin Anti-Xa Level ABG pH 7.473 H ABG pO2 93.4 H ABG HCO3 29.9 H ABG O2 Saturation ABG Base Excess 5.8 H ABG Hemoglobin 10.0 L Oxyhemoglobin Sodium Potassium Chloride Carbon Dioxide 31 H BUN 21 H Creatinine Glucose POC Glucose Hemoglobin A1c Calcium Phosphorus Magnesium AST Troponin T NT-Pro-B Natriuret Pep Albumin Triglycerides LDL Cholesterol Direct HDL Cholesterol PTH Intact Urine Creatinine Urine Total Protein 07/07/22 07/07/22 06:15 12:25 WBC RBC Hgb Hct Plt Count Lymph % (Auto) [place] % (Auto) Lymph # (Auto) [place] # (Auto) Seg Neutrophils % Seg Neuts % (Manual) Lymphocytes % (Manual) Seg Neutrophils # Seg Neutrophils # Man Lymphocytes # (Manual) PT INR APTT Heparin Anti-Xa Level ABG pH ABG pO2 ABG HCO3 ABG O2 Saturation ABG Base Excess ABG Hemoglobin Oxyhemoglobin Sodium Potassium Chloride Carbon Dioxide BUN Creatinine Glucose POC Glucose 67 L 111 H Hemoglobin A1c Calcium Phosphorus Magnesium AST Troponin T NT-Pro-B Natriuret Pep Albumin Triglycerides LDL Cholesterol Direct HDL Cholesterol PTH Intact Urine Creatinine Urine Total Protein Allied health notes reviewed: RT
--- NOTE | 2022-07-07 14:01 | Progress Note ---
Assessment and Plan - Patient Problems (1) Cardiopulmonary arrest Current Visit: Yes Status: Acute Plan to address problem: Patient was on virtual reality specialist at the time of her respiratory decompensation, no primary cardiac arrhythmias were noted. With history of recent extensive venous thromboembolism, most likely etiology to pursue is acute pulmonary embolism, in addition to other pulmonary etiologies such as sleep apnea, pulmonary atelectasis. Unlikely primary cardiac event. Defer to internal medicine and pulmonary for work-up of pulmonary causes of acute respiratory failure. Echocardiogram is pending for left ventricular function and right ventricular function assessment. (2) Paroxysmal atrial fibrillation Current Visit: Yes Status: Acute Plan to address problem: Patient has paroxysmal atrial fibrillation, with underlying right bundle branch block, findings are chronic. She is on long-term anticoagulation with Eliquis for her venous thromboembolism. Patient is currently in a stable sinus rhythm. We will direct further treatment for atrial fibrillation suppression as needed. Subjective Date of service: 07/07/22 Principal diagnosis: AHRF; DKA; Hyperkalemia; COPD; ? cellulitis; PVD; STEFFANIE; Morbid obesity; ?JACKLYN Interval history: Patient is awake on the vent, follows commands, no acute distress. On virtual reality specialist there is a stable sinus rhythm, blood pressure is stable. Objective Vital Signs Temp Pulse Pulse Resp BP Pulse Ox 07/07/22 12:00 78 75 22 98 07/07/22 11:50 84 101/63 92 07/07/22 09:00 76 35 H 134/64 94 07/07/22 08:00 98.6 F 72 68 20 104/52 98 07/07/22 04:15 71 143/64 94 07/07/22 04:00 79 78 18 98 07/07/22 00:00 74 74 16 132/49 97 07/06/22 20:20 74 98 07/06/22 20:00 85 85 23 96 07/06/22 16:05 88 178/67 97 07/06/22 16:00 85 96 - Physical Examination General: Other (Awake, on the vent) HEENT: Positive: PERRL Neck: Positive: neck supple Cardiac: Positive: Reg Rate and Rhythm Lungs: Positive: Decreased Breath Sounds Neuro: Positive: Grossly Intact Abdomen: Positive: Soft Skin: Positive: Clear Extremities: Absent: edema - Labs and Meds CBC 07/07/22 Range/Units 05:35 WBC 7.6 (4.5-11.0) K/mm3 RBC 3.13 L (3.65-5.03) M/mm3 Hgb 9.7 L (10.1-14.3) gm/dl Hct 28.7 L (30.3-42.9) % Plt Count 180 (140-440) K/mm3 Comprehensive Metabolic Panel 07/07/22 Range/Units 05:35 Sodium 141 (137-145) mmol/L Potassium 3.9 (3.6-5.0) mmol/L Chloride 104.7 (98-107) mmol/L Carbon Dioxide 31 H (22-30) mmol/L BUN 21 H (7-17) mg/dL Creatinine 1.1 (0.6-1.2) mg/dL Glucose 72 (65-100) mg/dL Calcium 8.5 (8.4-10.2) mg/dL - Allied health notes Allied health notes reviewed: RT
--- NOTE | 2022-07-07 14:41 | Progress Note ---
Assessment and Plan 1. Acute kidney injury: Suspect vasomotor STEFFANIE in the setting of DKA/volume depletion. Renal US negative for hydro/stone. Monitor renal function. Creatinine leveled off. Avoid nephrotoxic agents. Meds dosage based on GFR. 2. FEN: Hyperkalemia, improved. Anion-gap Metabolic acidosis, 2/2 DKA, improved, monitor. Replete lytes as needed. Monitor lytes and volume status. 3. S/p Cardiac arrest 07/05: Currently in ICU. Followed by Cards. 4. Resp failure: Currently on MV. 5. A.fib with RVR: SR now. Followed by Cards. 6. DKA: Admits to stop taking meds at home. S/p Insulin drip. Improved. Monitor. 7. Acute DVT involving the external iliac veins bilaterally with thrombus extending distally bilaterally: S/p LE angioplsty Followed by Vascular. 8. Hyotension: Off pressors. Monitor BP. 9. H/o COPD. Subjective: Patient was seen and examined at the bedside. Mother and Aunt at the bedside. Examination: General appearance: well-developed, obese, appears stated age, intubated, on MV HEENT: atraumatic, no icterus Neck: trachea midline Respiratory: coarse breath sounds heard Heart: S1S2, regular, no murmur Abdomen: soft, obese, bowel sounds heard, NT Integumentary: LE dressing noted Neurologic: stuporous Ext: trace Ext and dependent edema Subjective Date of service: 07/07/22 Principal diagnosis: AHRF; DKA; Hyperkalemia; COPD; ? cellulitis; PVD; STEFFANIE; Morbid obesity; ?JACKLYN Objective - Vital Signs Vital signs: Vital Signs - 12hr 07/07/22 07/07/22 07/07/22 04:00 04:15 08:00 Temperature 98.6 F Pulse Rate 79 71 72 Pulse Rate [ 78 68 From Monitor] Respiratory 18 20 Rate Blood Pressure 143/64 104/52 O2 Sat by Pulse 98 94 98 Oximetry 07/07/22 07/07/22 07/07/22 09:00 11:50 12:00 Temperature Pulse Rate 76 84 78 Pulse Rate [ 75 From Monitor] Respiratory 35 H 22 Rate Blood Pressure 134/64 101/63 O2 Sat by Pulse 94 92 98 Oximetry - Lab 07/08/22 05:00 07/08/22 05:00 Most recent lab results ABG pH 7.473 pH Units (7.350-7.450) H 07/07/22 04:13 ABG pCO2 41.8 mm Hg 07/07/22 04:13 ABG pO2 93.4 mm Hg (80.0-90.0) H 07/07/22 04:13 ABG HCO3 29.9 mmol/L (20.0-26.0) H 07/07/22 04:13 ABG O2 Saturation 97.5 % (95.0-99.0) 07/07/22 04:13 Calcium 8.5 mg/dL (8.4-10.2) 07/07/22 05:35 Phosphorus 2.10 mg/dL (2.5-4.5) L D 07/02/22 08:12 Magnesium 2.00 mg/dL (1.7-2.3) 07/05/22 Unknown Urine Creatinine 85.4 mg/dL (0.1-20.0) H 06/28/22 08:10 Urine Sodium 10 mmol/L 06/28/22 08:10 Urine Total Protein 49 mg/dL (5-11.8) H 06/28/22 08:10 Medications & Allergies - Medications Allergies/Adverse Reactions: Allergies ciprofloxacin [From Cipro] Allergy (Verified 05/28/22 12:07) Unknown Penicillins Allergy (Verified 05/28/22 12:07) Unknown Home Medications: Home Medications Medication Instructions Recorded Confirmed Last Taken Type Apixaban [Eliquis] 5 mg PO BID 04/13/21 06/28/22 Unknown History Empagliflozin [Jardiance] 25 mg DAILY 04/13/21 06/28/22 Unknown History Fenofibrate 160 mg PO DAILY 04/13/21 06/28/22 Unknown History Glimepiride 4 mg BID 04/13/21 06/28/22 Unknown History Insulin Aspart (Nf) [NovoLOG 100 unit SQ PRN PRN 04/13/21 06/28/22 Unknown History Flexpen] Levothyroxine [Synthroid] 112 mcg PO QAM 04/13/21 06/28/22 Unknown History Lisinopril/Hydrochlorothiazide 1 tab PO QDAY 04/13/21 06/28/22 Unknown History [Zestoretic 20-12.5 mg] [place] Carbonate 600 mg PO QHS 04/13/21 06/28/22 Unknown History [place] Carbonate [Eskalith] 150 mg PO QAM 04/13/21 06/28/22 Unknown History Lurasidone [Latuda] 40 mg QHS 04/13/21 06/28/22 Unknown History Oxybutynin Chloride [Ditropan Xl] 15 mg PO QDAY 04/13/21 06/28/22 Unknown History Semaglutide [Ozempic] 1 unit SQ 1XW 04/13/21 06/28/22 Unknown History Venlafaxine HCl [Venlafaxine HCl 150 mg DAILY 04/13/21 06/28/22 Unknown History ER] buPROPion SR [Wellbutrin SR] 100 mg PO DAILY 04/13/21 06/28/22 Unknown History Doxycycline Hyclate [Doxycycline 100 mg PO Q12HR 7 Days #14 04/14/21 06/28/22 Unknown Rx Hyclate TAB] Active Medications: Generic Name Dose Route Start Last Admin Trade Name Freq PRN Reason Stop Dose Admin Acetaminophen 650 mg 06/28/22 03:09 Acetaminophen 325 Mg Tab PO Q6H PRN Pain MILD(1-3)/Fever >100.5/[place] Lipase/Protease/Amylase 1 each 07/05/22 11:00 Lipase 10,500/Protease 25,000/Amylase 43,750 (Units) Dr [place] FEEDTUBE PRN PRN For Clogged Feeding Tube Apixaban 5 mg 07/10/22 10:00 Apixaban 5 Mg Tab FEEDTUBE Q12HR SHANTHI Protocol Apixaban 10 mg 07/05/22 12:00 07/07/22 09:24 Apixaban 5 Mg Tab FEEDTUBE 07/09/22 22:01 10 mg Q12HR SHANTHI Administration Protocol Atorvastatin Calcium 40 mg 07/05/22 10:38 07/06/22 21:10 Atorvastatin 40 Mg Tab FEEDTUBE 40 mg QHS SHANTHI Administration Dextrose 50 ml 06/30/22 09:00 07/07/22 06:21 Dextrose 50% In Water (25gm) 50 Ml Syringe IV 50 ml Q30MIN PRN Administration Hypoglycemia Protocol Haloperidol 5 mg 07/05/22 11:00 07/07/22 09:24 Haloperidol 5 Mg Tab FEEDTUBE 5 mg BID SHANTHI Administration Hydrophilic Ointment 1 applic 07/05/22 12:00 Lip Therapy Vaseline TP Q2H PRN Dry Lips Propofol 1,000 mg in 100 mls @ 4.188 mls/hr 07/05/22 10:00 07/07/22 13:44 Diprivan 10 Mg/Ml IV 5 mcg/kg/min TITR SHANTHI 4.188 mls/hr Administration Protocol 5 MCG/KG/MIN Phenylephrine HCl 100 mg/ 250 mls @ 10.47 mls/hr 07/05/22 10:45 07/06/22 08:45 Sodium Chloride IV 0 mcg/kg/min TITRATE SHANTHI 0 mls/hr Titration Protocol 0.5 MCG/KG/MIN Sodium Chloride 500 mls @ 1 mls/hr 07/05/22 12:00 Nacl 0.9% 500 Ml IV DIRECT PRN ARTERIAL LINE FLUSH Vasopressin 20 unit/ Sodium 101 mls @ 9.09 mls/hr 07/05/22 12:00 07/06/22 08:45 Chloride IV 0 units/min TITR SHANTHI 0 mls/hr Titration Protocol 0.03 UNITS/MIN Fentanyl Citrate 1,000 mcg in 100 mls @ 2.5 mls/hr 07/05/22 14:00 07/05/22 14:41 Fentanyl Drip Premix IV 25 mcg/hr TITR SHANTHI 2.5 mls/hr Administration Protocol 25 MCG/HR Lansoprazole 30 mg 07/06/22 10:00 07/07/22 09:24 Lansoprazole 30 Mg Solutab FEEDTUBE 30 mg QDAY SHANTHI Administration Levothyroxine Sodium 112 mcg 07/05/22 12:00 07/07/22 09:24 Levothyroxine 112 Mcg Tab FEEDTUBE 112 mcg QAM SHANTHI Administration Mirtazapine 15 mg 07/07/22 22:00 Mirtazapine 15 Mg Solutab PO QHS SHANTHI Multi-Ingred Cream/Lotion/Oil/Oint 1 applic 07/05/22 11:00 Mineral Oil/Petrolatum, White Ophth Oint 3.5 Gm OU Q4H PRN Dry Eye(s) Nicotine 21 mg 07/04/22 15:00 07/07/22 09:24 Nicotine 21 Mg/24 Hr Patch TD 21 mg QDAY SHANTHI Administration Ondansetron HCl 4 mg 06/28/22 03:09 06/28/22 05:44 Ondansetron 4 Mg/2 Ml Inj IV 4 mg Q8H PRN Administration Nausea And Vomiting Senna/Docusate Sodium 1 tab 07/05/22 11:00 07/07/22 12:28 Sennosides/Docusate Sodium 8.6/50 Mg Tab FEEDTUBE Not Given BID SHANTHI Simple Syrup 15 ml 07/05/22 11:00 Simple Syrup 15 Ml FEEDTUBE PRN PRN Hypoglycemia Simple Syrup 30 ml 07/05/22 11:00 Simple Syrup 15 Ml FEEDTUBE PRN PRN Hypoglycemia Sodium Bicarbonate 325 mg 07/05/22 10:26 Sodium Bicarbonate 325 Mg Tab FEEDTUBE PRN PRN For Clogged Feeding Tube Sodium Chloride 10 ml 06/28/22 10:00 07/07/22 09:27 Sodium Chloride 0.9% 10 Ml Flush Syringe IV 10 ml BID SHANTHI Administration Sodium Chloride 10 ml 06/28/22 03:09 Sodium Chloride 0.9% 10 Ml Flush Syringe IV PRN PRN LINE FLUSH Valproic Acid 250 mg 07/05/22 18:00 07/07/22 12:41 Valproic Acid 250 Mg/5 Ml Oral Liqd FEEDTUBE 250 mg Q6HR SHANTHI Administration
--- NOTE | 2022-07-07 18:12 | Cat Scan Report ---
CTA CHEST WITH CONTRAST INDICATION / CLINICAL INFORMATION: Status post code blue, possible pulmonary embolism. TECHNIQUE: Axial CT images were obtained through the chest after injection of 95 cc Omnipaque 350 IV contrast. 3 plane MIP and/or 3D reconstructions were produced. All CT scans at this location are perf ormed using CT dose reduction for ALARA by means of automated exposure control. COMPARISON: One view of the chest performed today. FINDINGS: PULMONARY EMBOLUS: There is evidence of right lower lobe segmental and subsegmental PTE. No central p ulmonary emboli are seen. THORACIC AORTA: No significant abnormality. HEART: No significant abnormality. CORONARY ARTERY CALCIFICATION: Absent -- None. MEDIASTINUM / CURT: No significant abnormality. PLEURA: There are trace pleural effusions. No pneumothorax. LUNGS: Scattered bilateral ground glass opacities are noted with more dense areas of consolidation se en along the lower lobes, left greater than right. ADDITIONAL FINDINGS: There is expected positioning of ET and esophagogastric tubes. UPPER ABDOMEN: No acute findings. There are multiple bilateral probable renal cysts. SKELETAL STRUCTURES: No significant osseous abnormality. IMPRESSION: 1. Acute pulmonary emboli as above with bilateral lower lobe atelectasis versus pneumonia. 2. Additional findings as above. CRITICAL RESULT: Time of Discovery (CLARK DRIVER/CDT): 17:00 Time of Communication (CLARK DRIVER/CDT): 17:07 Licensed Practitioner Receiving Report: CITLALY JuárezU staff Read-Back Performed: Yes. Signer Name: Tristian Willis MD Signed: 07/07/2022 6:08 PM Workstation Name: [id number]
--- NOTE | 2022-07-07 19:15 | Event Note ---
Date: 07/07/22 CT pulmonary angiogram performed. There a few small subsegmental right lower lobe and a single distal small segmental right lower lobar pulmonary embolism. This is a minimal thrombus burden. This is unlikely to represent a cause of acute respiratory arrest. This would typically have minimal to no symptoms. There is consolidation of the left lower lobe which appears to be at least mostly atelectatic due to volume loss. There could be a component of infection. There is no evidence of any significant pulmonary emboli which would require intervention. US of the lower extremities pending.
[2022-07-07] MEDS: MIRTAZAPINE 15 MG SOLUTAB PO SCH (23:32)
[2022-07-08 04:29] LABS: ABG Base Excess 4.2 mmol/L (-2.0-3.0); ABG HCO3 29.2 mmol/L (20.0-26.0); ABG Methemoglobin 0.5 % (0.0-1.5); ABG PCO2 45.8 mm Hg; ABG PH 7.423 pH Units (7.350-7.450); ABG PO2 63.4 mm Hg (80.0-90.0)
--- NOTE | 2022-07-08 04:30 | XRay Report ---
CHEST 1 VIEW 07/08/2022 3:45 AM INDICATION / CLINICAL INFORMATION: follow up respiratory failure. COMPARISON: chest radiograph performed yesterday FINDINGS: SUPPORT DEVICES: The support lines and tubes are in stable and appropriate position. HEART / MEDIASTINUM: Stable cardiomediastinal silhouette for AP technique. LUNGS / PLEURA: No pneumothorax. Stable small left greater than right pleural effusions and confluent left lower lobe consolidation/atelectasis. ADDITIONAL FINDINGS: No significant additional findings. IMPRESSION: 1. Stable small left greater than right pleural effusions and confluent left lower lobe consolidation /atelectasis. 2. Stable satisfactory support line/tube position. Signer Name: Josh Menjivar MD Signed: 07/08/2022 4:25 AM Workstation Name: [id number]
[2022-07-08 05:50] LABS: Calcium 8.9 mg/dL (8.4-10.2)
[2022-07-08 05:53] LABS: Hemoglobin 9.9 gm/dl (10.1-14.3); Mean Corpuscular HGB Conc 32 % (30-34); Mean Corpuscular Volume 94 fl (79-97); Platelet Count 189 K/mm3 (140-440); Red Cell Distribution Width 15.2 % (13.2-15.2)
[2022-07-08] MEDS: VALPROIC ACID 250 MG/5 ML ORAL LIQD FEEDTUBE SCH ×2 (06:07→18:44)
--- NOTE | 2022-07-08 09:21 | Progress Note ---
<LUDYLINETTE GreenKatt - Last Filed: 07/08/22 09:18> Assessment and Plan Assessment and plan: This is a 52-year-old female with DM, HTN, nicotine dependence, COPD, PE/DVT on Eliquis at home with IVC filter, medical noncompliance and bipolar disorder admitted with DKA and STEFFANIE Neuro: h/o medical noncompliance, bipolar disorder -Psych consulted, appreciate recommendations -Sedated with propofol and fentanyl -RASS goal 0 to -1 -Reorientation as needed -Maintain sleep-wake cycle -As needed analgesia -Per psych: Haldol, Depakote -Bilateral wrist restraints for safety Cardiac: s/p cardiac arrest on 07/05, h/o hypertension, HLD -Cardiology consulted, appreciate recommendations -Blood pressure monitoring per protocol -S/p vasopressor support with Levophed, pheynlepinephrine, vasopressin -MAP goal greater than 65 -Hold home hypertensive regimen of lisinopril and nifedipine -Continue home fenofibrate -Home medications: Lisinopril/hydrochlorothiazide 25/12.5 p.o. daily, f enofibrate 1 consistently grams daily -Echocardiogram shows LVEF 60 to 65%, RVSP 20 mmHg, no RV strain Respiratory: Acute hypoxic respiratory failure -CCM consulted, appreciate recommendations -Intubated on 06/04 with 7.50 ETT at 22 at the lips -A.m. vent settings: Assist-control rate 20, tidal volume 450, PEEP 6, FiO2 40 -See RT notes for titration -Trial CPAP -A.m. ABG and CXR noted -VAP bundle -SPO2 monitoring GI: Morbid obese, moderate protein calorie malnutrition -PPI -NTR consulted for tube feedings : Acute kidney injury likely secondary to vasomotor nephropathy (resolved) -Nephrology consulted, appreciate recommendations -Monitor intake and output -Renally dose medications -Avoid nephrotoxic medications -Trend BMP ID: Bilateral calf ulcers -General surgery consulted, appreciate recommendations -WOCN -Wound care per nursing -Antibiotic therapy with cefepime/vancomycin x1 -f/u blood culture -Monitor WBC and temperature curve Endo: S/p DKA, h/o DM, hypothyroidism -Continue home Synthroid -Avoid hypoglycemia -SSI -Accu-Cheks q. every 6 -HOLD 70/30 insetting of hypoglycemia -06/28 hemoglobin A1c 9.7 -Home regimen: Jardiance 5 mg daily, glimepiride 4 mg twice daily, Latuda 40 mg nightly, Ozempic 1 unit SQ per week Heme: Acute PE, Acute DVT h/o chronic right lower extremity DVT on Eliquis s/p IVC filter -Bilateral lower extremity Doppler ultrasound revealed bilateral lower extremity occlusive DVT with extension to IVC filter -07/07 CTA chest showed few small subsegmental right lower lobe and single distal small segmental right lower lobe pulmonary embolism, consolidation of the left lower lobe -Bilateral lower extremity ultrasound pending -Per vascular surgery minimal thrombus burden, unlikely to represent a cause of acute respiratory arrest, this would typically have minimal to no symptoms, no evidence of significant pulmonary emboli which would require intervention -S/p thrombectomy on 07/02 -s/p Heparin drip -Eliquis p.o. -Trend CBC -Transfuse hemoglobin less than 7 -SCDs to BLE while in bed The high probability of a clinically significant, sudden or life threatening deterioration of the [multiple] system(s) required my full and direct attention, intervention and personal management. The aggregate critical care time was [60] minutes. This time is in addition to time spent performing reported procedures but includes the following: [x] Data Review and interpretation [x] Patient assessment and monitoring of vital signs [x] Documentation [x] Medication orders and management Disposition Plan: icu Total Time Spent with Patient (Minutes): 60 History Interval history: This is a 52-year-old female with DM, HTN, COPD, PE/DVT on Eliquis with IVC filter, medical noncompliance, bipolar, current nicotine abuse presented to the emergency department on 06/28 with complaints of shortness of breath, occasional palpitations. Work-up in the emergency department revealed hyperkalemia at 6.4, hyponatremia at 121, high anion gap metabolic acidosis with anion gap of 40, acute kidney injury with BUN/creatinine of 2.5/54 and hyperglycemia with glucose at 252. Patient was admitted to the hospitalist service with consults to [facility], nephrology and DKA on the DKA protocol. Hospital course to date: 06/28: Mentation improved, denied any abdominal pain, no nausea/vomiting. BG and anio gap still elevated. Continue insulin gtt and IVF resuscitation per protocol. Monitor and replace electrolytes as needed, serial Labs ordered. Transition to subQ once gap is closed. BLE ischemia noted, extremities are purple and cool to touch, palpable pedal pulses appreciated. Patient reported that she has a history of PE/DVT on Eliquis but she admitted that she has not been complaints with any of her medications for 3 days. 06/29: Anion Gap still greater than 20, and CO2 15 this am. 1amp of bcarb given, continue Insulin gtt and IVF resuscitation per protocol. repeat BMP ordered, will transition to subQ once gap is closed. BLE doppler noted with extensive BLE DVT, patient remains on the heparin gtt. Patient reported she was on PO Eliquis at home and had a IVF filter placed. Vascular Surgery is also following, genna reciate recommendations. Hyponatremia improving, appreciate Nephrology's recs. 06/30: Remains stable. Still on the DKA protocol, BG level has been less than 200s for over 24hrs, anion gap still in the 20s this am, probably due to STEFFANIE. Will transition patient to Subq insulin. Patient remains on the heparin gtt. BLE is unchanged, CHRISTOPHER hose applied. Per vascular Surgery, possible interventions/thrombectomy once the patient is stabilized. 07/01: Transition to subQ insulin yesteday. Patient remains stable, tolerating PO intake. Insulin regimen adjusted for hyperglycemia, continue BG check ACHS and IVF hydration for now. Hyponatremia is improving, nephrology is following. Patient remains on heparin gtt per protocol for BLE ischemia. Possible interventions/thrombectomy tomorrow per Vascular Surgery. 07/02: Patient seen and examined at the bedside. Remains stable on RA, VSS. Yesterday was transitioned to SubQ insulin, tolerating PO intake. BLE ischemia is unchanged with palpable pedal pulses. CHRISTOPHER Hose applied per Vascular Surgery. Discussed with vascular surgery today they are going to proceed with bilateral thrombectomy. We will continue on heparin drip at this time. Education provide d to the patient on blood sugar control. Compliance discussion also had for 15 minutes counseling. Anticipate discharge in 24 to 48 hours postprocedure 07/03: Patient underwent thrombectomy of bilateral caval iliofemoral DVTs by vascular surgery on 07/02/2022. Patient tolerated the procedure well 07/04: No acute events overnight. 07/05: Cardiac arrest. Transferred to ICU. PICC line placed. Levophed, vasopressin, phenylephrine, intubated on ventilatory support. A-line placed 07/06: This morning patient was placed on CPAP trial which he failed, patient was started and titrated off. No changes to mental status. Echocardiogram read which showed no right heart strain. BUN/creatinine are increasing but we will continue to monitor. Given 1 dose of vancomycin and cefepime given leukocytosis and febrile illness. Bicarbonate drip discontinued. 07/07: Patient was placed on CPAP trial which he failed due to tachypnea. Decreased her insulin regimen due to hypoglycemia. 07/08: No acute events reported overnight, remains on propofol. RT to trial CPAP. Small PE noted on CTA chest which vascular surgery stated would not require intervention and would typically have minimal to no symptoms. Hospitalist Physical - Constitutional Vitals: Temp Pulse Resp BP Pulse Ox 99.5 F 77 25 H 119/62 94 07/08/22 07:26 07/08/22 08:50 07/08/22 08:50 07/08/22 08:50 07/08/22 08:50 General appearance: Present: no acute distress, obese, other (Awake, on the vent, follows commands) - EENT Eyes: Present: PERRL, EOM intact ENT: poor dentition - Neck Neck: Present: normal ROM - Respiratory Respiratory effort: normal Respiratory: bilateral: diminished - Cardiovascular Rhythm: regular Heart Sounds: Present: S1 & S2 - Extremities Extremities: no ischemia, pulses intact, pulses symmetrical, No edema, normal temperature, normal color Peripheral Pulses: within normal limits - Abdominal General gastrointestinal: soft, non-tender, non-distended, normal bowel sounds - Integumentary Integumentary: Present: warm, dry - Psychiatric Psychiatric: cooperative - Neurologic Neurologic: moves all extremities - Allied Health Allied health notes reviewed: nursing, RT HEART Score - HEART Score Troponin: Troponin T 0.080 ng/mL (0.00-0.029) H 06/27/22 20:48 Results - Labs CBC & Chem 7: 07/08/22 05:00 07/08/22 05:00 Labs: Laboratory Last Values WBC 7.2 K/mm3 (4.5-11.0) 07/08/22 05:00 RBC 3.30 M/mm3 (3.65-5.03) L 07/08/22 05:00 Hgb 9.9 gm/dl (10.1-14.3) L 07/08/22 05:00 Hct 31.0 % (30.3-42.9) 07/08/22 05:00 MCV 94 fl (79-97) 07/08/22 05:00 MCH 30 pg (28-32) 07/08/22 05:00 MCHC 32 % (30-34) 07/08/22 05:00 RDW 15.2 % (13.2-15.2) 07/08/22 05:00 Plt Count 189 K/mm3 (140-440) 07/08/22 05:00 Lymph % (Auto) 8.4 % (13.4-35.0) L 07/04/22 05:37 [place] % (Auto) 10.1 % (0.0-7.3) H 07/04/22 05:37 Eos % (Auto) 0.4 % (0.0-4.3) 07/04/22 05:37 Baso % (Auto) 0.5 % (0.0-1.8) 07/04/22 05:37 Lymph # (Auto) 0.8 K/mm3 (1.2-5.4) L 07/04/22 05:37 [place] # (Auto) 1.0 K/mm3 (0.0-0.8) H 07/04/22 05:37 Eos # (Auto) 0.0 K/mm3 (0.0-0.4) 07/04/22 05:37 Baso # (Auto) 0.0 K/mm3 (0.0-0.1) 07/04/22 05:37 Add Manual Diff Complete 07/05/22 Unknown Total Counted 100 07/05/22 Unknown Seg Neutrophils % 80.6 % (40.0-70.0) H 07/04/22 05:37 Seg Neuts % (Manual) 91.0 % (40.0-70.0) H 07/05/22 Unknown Band Neutrophils % 0 % 07/05/22 Unknown Lymphocytes % (Manual) 1.0 % (13.4-35.0) L 07/05/22 Unknown Reactive Lymphs % (Man) 0 % 07/05/22 Unknown Monocytes % (Manual) 4.0 % (0.0-7.3) 07/05/22 Unknown Eosinophils % (Manual) 0 % (0.0-4.3) 07/05/22 Unknown Basophils % (Manual) 0 % (0.0-1.8) 07/05/22 Unknown Metamyelocytes % 3.0 % 07/05/22 Unknown Myelocytes % 1.0 % 07/05/22 Unknown Promyelocytes % 0 % 07/05/22 Unknown Blast Cells % 0 % 07/05/22 Unknown Nucleated RBC % Not Reportable 07/05/22 Unknown Seg Neutrophils # 8.0 K/mm3 (1.8-7.7) H 07/04/22 05:37 Seg Neutrophils # Man 15.0 K/mm3 (1.8-7.7) H 07/05/22 Unknown Band Neutrophils # 0.0 K/mm3 07/05/22 Unknown Lymphocytes # (Manual) 0.2 K/mm3 (1.2-5.4) L 07/05/22 Unknown Abs React Lymphs (Man) 0.0 K/mm3 07/05/22 Unknown Monocytes # (Manual) 0.7 K/mm3 (0.0-0.8) 07/05/22 Unknown Eosinophils # (Manual) 0.0 K/mm3 (0.0-0.4) 07/05/22 Unknown Basophils # (Manual) 0.0 K/mm3 (0.0-0.1) 07/05/22 Unknown Metamyelocytes # 0.5 K/mm3 07/05/22 Unknown Myelocytes # 0.2 K/mm3 07/05/22 Unknown Promyelocytes # 0.0 K/mm3 07/05/22 Unknown Blast Cells # 0.0 K/mm3 07/05/22 Unknown WBC Morphology Not Reportable 07/05/22 Unknown WBC Morphology TNR 07/05/22 Unknown Hypersegmented Neuts Not Reportable 07/05/22 Unknown Hyposegmented Neuts Not Reportable 07/05/22 Unknown Hypogranular Neuts Not Reportable 07/05/22 Unknown Smudge Cells Not Reportable 07/05/22 Unknown Toxic Granulation Not Reportable 07/05/22 Unknown Toxic Vacuolation Not Reportable 07/05/22 Unknown Dohle Bodies Not Reportable 07/05/22 Unknown Pelger-Huet Anomaly Not Reportable 07/05/22 Unknown Jesús Rods Not Reportable 07/05/22 Unknown Platelet Estimate Consistent w auto 07/05/22 Unknown Clumped Platelets Few 07/05/22 Unknown Plt Clumps, EDTA Not Reportable 07/05/22 Unknown Large Platelets Not Reportable 07/05/22 Unknown Giant Platelets Not Reportable 07/05/22 Unknown Platelet Satelliting Not Reportable 07/05/22 Unknown Plt Morphology Comment Not Reportable 07/05/22 Unknown RBC Morphology Normal 07/05/22 Unknown Dimorphic RBCs Not Reportable 07/05/22 Unknown Polychromasia Not Reportable 07/05/22 Unknown Hypochromasia Not Reportable 07/05/22 Unknown Poikilocytosis Not Reportable 07/05/22 Unknown Anisocytosis Not Reportable 07/05/22 Unknown Microcytosis Not Reportable 07/05/22 Unknown Macrocytosis Not Reportable 07/05/22 Unknown Spherocytes Not Reportable 07/05/22 Unknown Pappenheimer Bodies Not Reportable 07/05/22 Unknown Sickle Cells Not Reportable 07/05/22 Unknown Target Cells Not Reportable 07/05/22 Unknown Tear Drop Cells Not Reportable 07/05/22 Unknown Ovalocytes Not Reportable 07/05/22 Unknown Helmet Cells Not Reportable 07/05/22 Unknown [place] Bodies Not Reportable 07/05/22 Unknown [place] Rings Not Reportable 07/05/22 Unknown Nelly Cells Not Reportable 07/05/22 Unknown Bite Cells Not Reportable 07/05/22 Unknown Crenated Cell Not Reportable 07/05/22 Unknown Elliptocytes Not Reportable 07/05/22 Unknown Acanthocytes (Spur) Not Reportable 07/05/22 Unknown Rouleaux Not Reportable 07/05/22 Unknown Hemoglobin C Crystals Not Reportable 07/05/22 Unknown Schistocytes Not Reportable 07/05/22 Unknown Malaria parasites Not Reportable 07/05/22 Unknown Ellis Bodies Not Reportable 07/05/22 Unknown Hem Pathologist Commnt No 07/05/22 Unknown PT 17.3 Sec. (12.2-14.9) H 07/02/22 20:28 INR 1.26 (0.87-1.13) H 07/02/22 20:28 APTT 24.1 Sec. (24.2-36.6) L 07/02/22 20:28 Heparin Anti-Xa Level 0.21 U.I./ml (0.3-0.7) L 07/02/22 08:12 ABG pH 7.423 pH Units (7.350-7.450) 07/08/22 04:15 ABG pCO2 45.8 mm Hg 07/08/22 04:15 ABG pO2 63.4 mm Hg (80.0-90.0) L 07/08/22 04:15 ABG HCO3 29.2 mmol/L (20.0-26.0) H 07/08/22 04:15 ABG O2 Saturation 94.0 % (95.0-99.0) L 07/08/22 04:15 ABG O2 Content 13.0 (0.0-44) 07/08/22 04:15 ABG Base Excess 4.2 mmol/L (-2.0-3.0) H 07/08/22 04:15 ABG Hemoglobin 10.0 gm/dl (12.0-16.0) L 07/08/22 04:15 ABG Carboxyhemoglobin 1.8 % (0.0-5.0) 07/08/22 04:15 ABG Methemoglobin 0.5 % (0.0-1.5) 07/08/22 04:15 Oxyhemoglobin 91.8 % (95.0-99.0) L 07/08/22 04:15 FiO2 35 % 07/08/22 04:15 Sodium 141 mmol/L (137-145) 07/08/22 04:00 Potassium 4.7 mmol/L (3.6-5.0) D 07/08/22 04:00 Chloride 103.7 mmol/L (98-107) 07/08/22 04:00 Carbon Dioxide 28 mmol/L (22-30) 07/08/22 04:00 Anion Gap 14 mmol/L 07/08/22 04:00 BUN 26 mg/dL (7-17) H 07/08/22 04:00 Creatinine 1.1 mg/dL (0.6-1.2) 07/08/22 05:00 Estimated GFR 52 ml/min 07/08/22 05:00 BUN/Creatinine Ratio 24 % 07/08/22 04:00 Glucose 276 mg/dL (65-100) H 07/08/22 04:00 POC Glucose 167 mg/dL (70-105) H 07/07/22 18:36 Hemoglobin A1c 9.7 % (4-6) H 06/28/22 20:31 Lactic Acid 1.90 mmol/L (0.7-2.0) 06/29/22 10:47 Calcium 8.9 mg/dL (8.4-10.2) 07/08/22 04:00 Phosphorus 2.10 mg/dL (2.5-4.5) L D 07/02/22 08:12 Magnesium 2.00 mg/dL (1.7-2.3) 07/05/22 Unknown Total Bilirubin 0.90 mg/dL (0.1-1.2) 06/27/22 20:48 AST 50 units/L (5-40) H 06/27/22 20:48 ALT 28 units/L (7-56) 06/27/22 20:48 Alkaline Phosphatase 97 units/L (35-129) 06/27/22 20:48 Troponin T 0.080 ng/mL (0.00-0.029) H 06/27/22 20:48 NT-Pro-B Natriuret Pep 4137 pg/mL (0-900) H 06/27/22 20:48 Total Protein 7.0 g/dL (6.3-8.2) 06/27/22 20:48 Albumin 3.1 g/dL (3.9-5) L 06/27/22 20:48 Albumin/Globulin Ratio 0.8 % 06/27/22 20:48 Triglycerides 349 mg/dL (2-149) H 06/27/22 20:48 Cholesterol 156 mg/dL (50-199) 06/27/22 20:48 LDL Cholesterol Direct 37 mg/dL (50-130) L 06/27/22 20:48 HDL Cholesterol 38 mg/dL (40-59) L 06/27/22 20:48 Cholesterol/HDL Ratio 4.10 % 06/27/22 20:48 Procalcitonin 2.51 ng/mL (<0.15) 06/29/22 10:47 PTH Intact 382.4 pg/mL (15-65) H 06/29/22 04:21 Urine Creatinine 85.4 mg/dL (0.1-20.0) H 06/28/22 08:10 Protein/Creatinin Ratio 0.57 06/28/22 08:10 Urine Sodium 10 mmol/L 06/28/22 08:10 Urine Total Protein 49 mg/dL (5-11.8) H 06/28/22 08:10 Microbiology: Microbiology 07/05/22 15:15 Peripheral/Venous Blood Culture - Preliminary NO GROWTH AFTER 48 HOURS 07/05/22 15:15 Peripheral/Venous Blood Culture - Preliminary NO GROWTH AFTER 48 HOURS 07/07/22 14:29 Peripheral/Venous Blood Culture - Preliminary Culture in Progress 07/07/22 14:29 Peripheral/Venous Blood Culture - Preliminary Culture in Progress Tian/IV: Voiding Method External Female Catheter Active Medications - Current Medications Current Medications: Generic Name Dose Route Start Last Admin Trade Name Freq PRN Reason Stop Dose Admin Acetaminophen 650 mg 06/28/22 03:09 Acetaminophen 325 Mg Tab PO Q6H PRN Pain MILD(1-3)/Fever >100.5/MURILLO Lipase/Protease/Amylase 1 each 07/05/22 11:00 Lipase 10,500/Protease 25,000/Amylase 43,750 (Units) Dr [place] FEEDTUBE PRN PRN For Clogged Feeding Tube Apixaban 5 mg 07/10/22 10:00 Apixaban 5 Mg Tab FEEDTUBE Q12HR SHANTHI Protocol Apixaban 10 mg 07/05/22 12:00 07/07/22 23:31 Apixaban 5 Mg Tab FEEDTUBE 07/09/22 22:01 10 mg Q12HR SHANTHI Administration Protocol Atorvastatin Calcium 40 mg 07/05/22 10:38 07/07/22 23:31 Atorvastatin 40 Mg Tab FEEDTUBE 40 mg QHS SHANTHI Administration Dextrose 50 ml 06/30/22 09:00 07/07/22 06:21 Dextrose 50% In Water (25gm) 50 Ml Syringe IV 50 ml Q30MIN PRN Administration Hypoglycemia Protocol Haloperidol 5 mg 07/05/22 11:00 07/07/22 23:30 Haloperidol 5 Mg Tab FEEDTUBE 5 mg BID SHANTHI Administration Hydrophilic Ointment 1 applic 07/05/22 12:00 Lip Therapy Vaseline TP Q2H PRN Dry Lips Propofol 1,000 mg in 100 mls @ 4.188 mls/hr 07/05/22 10:00 07/07/22 13:44 Diprivan 10 Mg/Ml IV 5 mcg/kg/min TITR SHANTHI 4.188 mls/hr Administration Protocol 5 MCG/KG/MIN Phenylephrine HCl 100 mg/ 250 mls @ 10.47 mls/hr 07/05/22 10:45 07/06/22 08:45 Sodium Chloride IV 0 mcg/kg/min TITRATE SHANTHI 0 mls/hr Titration Protocol 0.5 MCG/KG/MIN Sodium Chloride 500 mls @ 1 mls/hr 07/05/22 12:00 Nacl 0.9% 500 Ml IV DIRECT PRN ARTERIAL LINE FLUSH Vasopressin 20 unit/ Sodium 101 mls @ 9.09 mls/hr 07/05/22 12:00 07/06/22 08:45 Chloride IV 0 units/min TITR SHANTHI 0 mls/hr Titration Protocol 0.03 UNITS/MIN Fentanyl Citrate 1,000 mcg in 100 mls @ 2.5 mls/hr 07/05/22 14:00 07/05/22 14:41 Fentanyl Drip Premix IV 25 mcg/hr TITR SHANTHI 2.5 mls/hr Administration Protocol 25 MCG/HR Lansoprazole 30 mg 07/06/22 10:00 07/07/22 09:24 Lansoprazole 30 Mg Solutab FEEDTUBE 30 mg QDAY SHANTHI Administration Levothyroxine Sodium 112 mcg 07/05/22 12:00 07/07/22 09:24 Levothyroxine 112 Mcg Tab FEEDTUBE 112 mcg QAM SHANTHI Administration Mirtazapine 15 mg 07/07/22 22:00 07/07/22 23:32 Mirtazapine 15 Mg Solutab PO 15 mg QHS SHANTHI Administration Multi-Ingred Cream/Lotion/Oil/Oint 1 applic 07/05/22 11:00 Mineral Oil/Petrolatum, White Ophth Oint 3.5 Gm OU Q4H PRN Dry Eye(s) Nicotine 21 mg 07/04/22 15:00 07/07/22 09:24 Nicotine 21 Mg/24 Hr Patch TD 21 mg QDAY SHANTHI Administration Ondansetron HCl 4 mg 06/28/22 03:09 06/28/22 05:44 Ondansetron 4 Mg/2 Ml Inj IV 4 mg Q8H PRN Administration Nausea And Vomiting Senna/Docusate Sodium 1 tab 07/05/22 11:00 07/07/22 12:28 Sennosides/Docusate Sodium 8.6/50 Mg Tab FEEDTUBE Not Given BID SHANTHI Simple Syrup 15 ml 07/05/22 11:00 Simple Syrup 15 Ml FEEDTUBE PRN PRN Hypoglycemia Simple Syrup 30 ml 07/05/22 11:00 Simple Syrup 15 Ml FEEDTUBE PRN PRN Hypoglycemia Sodium Bicarbonate 325 mg 07/05/22 10:26 Sodium Bicarbonate 325 Mg Tab FEEDTUBE PRN PRN For Clogged Feeding Tube Sodium Chloride 10 ml 06/28/22 10:00 07/07/22 09:27 Sodium Chloride 0.9% 10 Ml Flush Syringe IV 10 ml BID SHANTHI Administration Sodium Chloride 10 ml 06/28/22 03:09 Sodium Chloride 0.9% 10 Ml Flush Syringe IV PRN PRN LINE FLUSH Valproic Acid 250 mg 07/05/22 18:00 07/08/22 06:07 Valproic Acid 250 Mg/5 Ml Oral Liqd FEEDTUBE 250 mg Q6HR SHANTHI Administration Nutrition/Malnutrition Assess - Dietary Evaluation Nutrition/Malnutrition Findings: Nutrition Notes Start: 06/28/22 11:39 Freq: Status: Active Protocol: Document 07/07/22 13:47 CHRISTAL (Rec: 07/07/22 14:11 CHRISTAL [id number]) Nutrition Notes Initial or Follow up Reassessment Current Diagnosis COPD,Diabetes,Hypertension Other Pertinent Diagnosis S/p PEA/ROSC, s/p STEFFANIE, s/p DKA , DVT s/p LE Angioplasty. Current Diet TF-Vital High Protein @ 65 ml/ hr (from D 07/05). Labs/Tests 07/07: CO2 31, BUN 21. Pertinent Medications 07/07: Levothyroxine, Propofol @ 4.188 ml/hr (111Kcal), others nutritionally unremarkable. Height 5 ft 4 in Weight 139.6 kg [place] Body Weight (kg) 54.54 BMI 52.8 Weight change and time frame No body weight change reported in 9 days. Weight Status Morbidly Obese Subjective/Other Information RD consult for TF tolerance/ continuation assessment. TF continues as prescribed, no further information on TF tolerance at the time, will assess aF/U. Pt continues on Mechanical Ventilation, O2 saturation @ 98%, and will continue off sedation, according to Physical Assessment History notes. Pt has been producing 1 BM daily no more constipation at the time, according to Physical Assessment History notes. Percent of energy/protein needs met: Prescribed TF-Vital High Protein @ 65 ml/hr provides for energy/protein needs (1, 550 Kcal/136 g) during LOS, 101% Kcal; 100% AA. Burn Absent Trauma Absent GI Symptoms None Food Allergy No Skin Integrity/Comment Bilateral LE redness/echimosis . Current % PO Other Minimum of two criteria No Fluid Accumulation N/A Reduced Vp Of Product Strength N/A (non-severe) Protein-Calorie Malnutrition N\A #2 Nutrition Diagnosis Inadequate oral intake Diagnosis Progress(for reassessment Continues documentation) #1 Nutrition Diagnosis Overweight/obesity Diagnosis Progress(for reassessment Continues documentation) Is patient on ventilator? Yes Is Patient Ambulatory and/or Out of Bed No REE-([facility] Jetn-confined to bed) 2392.512 Kcal/Kg value to use for calculation 11 Approximate Energy Requirements Using 1536 kcal/Kg Calculation Used for Recommendations Kcal/kg Additional Notes Protein: 1.2-2 g/Kg AdjBW; 115 -196 g/day. Fluids: 1 ml/Kcal, or as per MD. Nutrition Intervention Nutrition Support: Continue TF-Vital High Protein @ 65 ml/hr. Flush: 50 ml Q 4 hr, or as per MD. Kcal 1,550 Protein (gm) 136 Carbohydrates (gm) 174 Fat (gm) 36 Fluid (mL) 1,296 Fiber (gm) 0 % RDI: 101% Kcal; 100% AA. Goal #1 Provide at least 75% of energy /protein needs through Enteral Feeding during LOS. Follow-Up By: 07/13/22 Additional Comments Start monitoring TF tolerance, ventilation status, and BM. <MASON ANDRADE E - Last Filed: 07/08/22 23:31> Assessment and Plan Assessment and plan: I saw and evaluated the patient. I agree with the findings and the plan of care as documented in the Nurse Practitioner's~note, with the following corrections and additions. Hospitalist Physical - Constitutional Vitals: Temp Pulse Resp BP Pulse Ox 99.8 F H 75 23 125/70 95 07/08/22 19:45 07/08/22 22:00 07/08/22 22:00 07/08/22 22:00 07/08/22 22:00 HEART Score - HEART Score Troponin: Troponin T 0.080 ng/mL (0.00-0.029) H 06/27/22 20:48 Results - Labs CBC & Chem 7: 07/08/22 05:00 07/08/22 05:00 Labs: Laboratory Last Values WBC 7.2 K/mm3 (4.5-11.0) 07/08/22 05:00 RBC 3.30 M/mm3 (3.65-5.03) L 07/08/22 05:00 Hgb 9.9 gm/dl (10.1-14.3) L 07/08/22 05:00 Hct 31.0 % (30.3-42.9) 07/08/22 05:00 MCV 94 fl (79-97) 07/08/22 05:00 MCH 30 pg (28-32) 07/08/22 05:00 MCHC 32 % (30-34) 07/08/22 05:00 RDW 15.2 % (13.2-15.2) 07/08/22 05:00 Plt Count 189 K/mm3 (140-440) 07/08/22 05:00 Lymph % (Auto) 8.4 % (13.4-35.0) L 07/04/22 05:37 [place] % (Auto) 10.1 % (0.0-7.3) H 07/04/22 05:37 Eos % (Auto) 0.4 % (0.0-4.3) 07/04/22 05:37 Baso % (Auto) 0.5 % (0.0-1.8) 07/04/22 05:37 Lymph # (Auto) 0.8 K/mm3 (1.2-5.4) L 07/04/22 05:37 [place] # (Auto) 1.0 K/mm3 (0.0-0.8) H 07/04/22 05:37 Eos # (Auto) 0.0 K/mm3 (0.0-0.4) 07/04/22 05:37 Baso # (Auto) 0.0 K/mm3 (0.0-0.1) 07/04/22 05:37 Add Manual Diff Complete 07/05/22 Unknown Total Counted 100 07/05/22 Unknown Seg Neutrophils % 80.6 % (40.0-70.0) H 07/04/22 05:37 Seg Neuts % (Manual) 91.0 % (40.0-70.0) H 07/05/22 Unknown Band Neutrophils % 0 % 07/05/22 Unknown Lymphocytes % (Manual) 1.0 % (13.4-35.0) L 07/05/22 Unknown Reactive Lymphs % (Man) 0 % 07/05/22 Unknown Monocytes % (Manual) 4.0 % (0.0-7.3) 07/05/22 Unknown Eosinophils % (Manual) 0 % (0.0-4.3) 07/05/22 Unknown Basophils % (Manual) 0 % (0.0-1.8) 07/05/22 Unknown Metamyelocytes % 3.0 % 07/05/22 Unknown Myelocytes % 1.0 % 07/05/22 Unknown Promyelocytes % 0 % 07/05/22 Unknown Blast Cells % 0 % 07/05/22 Unknown Nucleated RBC % Not Reportable 07/05/22 Unknown Seg Neutrophils # 8.0 K/mm3 (1.8-7.7) H 07/04/22 05:37 Seg Neutrophils # Man 15.0 K/mm3 (1.8-7.7) H 07/05/22 Unknown Band Neutrophils # 0.0 K/mm3 07/05/22 Unknown Lymphocytes # (Manual) 0.2 K/mm3 (1.2-5.4) L 07/05/22 Unknown Abs React Lymphs (Man) 0.0 K/mm3 07/05/22 Unknown Monocytes # (Manual) 0.7 K/mm3 (0.0-0.8) 07/05/22 Unknown Eosinophils # (Manual) 0.0 K/mm3 (0.0-0.4) 07/05/22 Unknown Basophils # (Manual) 0.0 K/mm3 (0.0-0.1) 07/05/22 Unknown Metamyelocytes # 0.5 K/mm3 07/05/22 Unknown Myelocytes # 0.2 K/mm3 07/05/22 Unknown Promyelocytes # 0.0 K/mm3 07/05/22 Unknown Blast Cells # 0.0 K/mm3 07/05/22 Unknown WBC Morphology Not Reportable 07/05/22 Unknown WBC Morphology TNR 07/05/22 Unknown Hypersegmented Neuts Not Reportable 07/05/22 Unknown Hyposegmented Neuts Not Reportable 07/05/22 Unknown Hypogranular Neuts Not Reportable 07/05/22 Unknown Smudge Cells Not Reportable 07/05/22 Unknown Toxic Granulation Not Reportable 07/05/22 Unknown Toxic Vacuolation Not Reportable 07/05/22 Unknown Dohle Bodies Not Reportable 07/05/22 Unknown Pelger-Huet Anomaly Not Reportable 07/05/22 Unknown Jesús Rods Not Reportable 07/05/22 Unknown Platelet Estimate Consistent w auto 07/05/22 Unknown Clumped Platelets Few 07/05/22 Unknown Plt Clumps, EDTA Not Reportable 07/05/22 Unknown Large Platelets Not Reportable 07/05/22 Unknown Giant Platelets Not Reportable 07/05/22 Unknown Platelet Satelliting Not Reportable 07/05/22 Unknown Plt Morphology Comment Not Reportable 07/05/22 Unknown RBC Morphology Normal 07/05/22 Unknown Dimorphic RBCs Not Reportable 07/05/22 Unknown Polychromasia Not Reportable 07/05/22 Unknown Hypochromasia Not Reportable 07/05/22 Unknown Poikilocytosis Not Reportable 07/05/22 Unknown Anisocytosis Not Reportable 07/05/22 Unknown Microcytosis Not Reportable 07/05/22 Unknown Macrocytosis Not Reportable 07/05/22 Unknown Spherocytes Not Reportable 07/05/22 Unknown Pappenheimer Bodies Not Reportable 07/05/22 Unknown Sickle Cells Not Reportable 07/05/22 Unknown Target Cells Not Reportable 07/05/22 Unknown Tear Drop Cells Not Reportable 07/05/22 Unknown Ovalocytes Not Reportable 07/05/22 Unknown Helmet Cells Not Reportable 07/05/22 Unknown [place] Bodies Not Reportable 07/05/22 Unknown [place] Rings Not Reportable 07/05/22 Unknown Canon Cells Not Reportable 07/05/22 Unknown Bite Cells Not Reportable 07/05/22 Unknown Crenated Cell Not Reportable 07/05/22 Unknown Elliptocytes Not Reportable 07/05/22 Unknown Acanthocytes (Spur) Not Reportable 07/05/22 Unknown Rouleaux Not Reportable 07/05/22 Unknown Hemoglobin C Crystals Not Reportable 07/05/22 Unknown Schistocytes Not Reportable 07/05/22 Unknown Malaria parasites Not Reportable 07/05/22 Unknown Ellis Bodies Not Reportable 07/05/22 Unknown Hem Pathologist Commnt No 07/05/22 Unknown PT 17.3 Sec. (12.2-14.9) H 07/02/22 20:28 INR 1.26 (0.87-1.13) H 07/02/22 20:28 APTT 24.1 Sec. (24.2-36.6) L 07/02/22 20:28 Heparin Anti-Xa Level 0.21 U.I./ml (0.3-0.7) L 07/02/22 08:12 ABG pH 7.423 pH Units (7.350-7.450) 07/08/22 04:15 ABG pCO2 45.8 mm Hg 07/08/22 04:15 ABG pO2 63.4 mm Hg (80.0-90.0) L 07/08/22 04:15 ABG HCO3 29.2 mmol/L (20.0-26.0) H 07/08/22 04:15 ABG O2 Saturation 94.0 % (95.0-99.0) L 07/08/22 04:15 ABG O2 Content 13.0 (0.0-44) 07/08/22 04:15 ABG Base Excess 4.2 mmol/L (-2.0-3.0) H 07/08/22 04:15 ABG Hemoglobin 10.0 gm/dl (12.0-16.0) L 07/08/22 04:15 ABG Carboxyhemoglobin 1.8 % (0.0-5.0) 07/08/22 04:15 ABG Methemoglobin 0.5 % (0.0-1.5) 07/08/22 04:15 Oxyhemoglobin 91.8 % (95.0-99.0) L 07/08/22 04:15 FiO2 35 % 07/08/22 04:15 Sodium 141 mmol/L (137-145) 07/08/22 04:00 Potassium 4.7 mmol/L (3.6-5.0) D 07/08/22 04:00 Chloride 103.7 mmol/L (98-107) 07/08/22 04:00 Carbon Dioxide 28 mmol/L (22-30) 07/08/22 04:00 Anion Gap 14 mmol/L 07/08/22 04:00 BUN 26 mg/dL (7-17) H 07/08/22 04:00 Creatinine 1.1 mg/dL (0.6-1.2) 07/08/22 05:00 Estimated GFR 52 ml/min 07/08/22 05:00 BUN/Creatinine Ratio 24 % 07/08/22 04:00 Glucose 276 mg/dL (65-100) H 07/08/22 04:00 POC Glucose 389 mg/dL (70-105) H 07/08/22 22:12 Hemoglobin A1c 9.7 % (4-6) H 06/28/22 20:31 Lactic Acid 1.90 mmol/L (0.7-2.0) 06/29/22 10:47 Calcium 8.9 mg/dL (8.4-10.2) 07/08/22 04:00 Phosphorus 2.10 mg/dL (2.5-4.5) L D 07/02/22 08:12 Magnesium 2.00 mg/dL (1.7-2.3) 07/05/22 Unknown Total Bilirubin 0.90 mg/dL (0.1-1.2) 06/27/22 20:48 AST 50 units/L (5-40) H 06/27/22 20:48 ALT 28 units/L (7-56) 06/27/22 20:48 Alkaline Phosphatase 97 units/L (35-129) 06/27/22 20:48 Troponin T 0.080 ng/mL (0.00-0.029) H 06/27/22 20:48 NT-Pro-B Natriuret Pep 4137 pg/mL (0-900) H 06/27/22 20:48 Total Protein 7.0 g/dL (6.3-8.2) 06/27/22 20:48 Albumin 3.1 g/dL (3.9-5) L 06/27/22 20:48 Albumin/Globulin Ratio 0.8 % 06/27/22 20:48 Triglycerides 349 mg/dL (2-149) H 06/27/22 20:48 Cholesterol 156 mg/dL (50-199) 06/27/22 20:48 LDL Cholesterol Direct 37 mg/dL (50-130) L 06/27/22 20:48 HDL Cholesterol 38 mg/dL (40-59) L 06/27/22 20:48 Cholesterol/HDL Ratio 4.10 % 06/27/22 20:48 Procalcitonin 2.51 ng/mL (<0.15) 06/29/22 10:47 PTH Intact 382.4 pg/mL (15-65) H 06/29/22 04:21 Urine Creatinine 85.4 mg/dL (0.1-20.0) H 06/28/22 08:10 Protein/Creatinin Ratio 0.57 06/28/22 08:10 Urine Sodium 10 mmol/L 06/28/22 08:10 Urine Total Protein 49 mg/dL (5-11.8) H 06/28/22 08:10 Microbiology: Microbiology 07/05/22 15:15 Peripheral/Venous Blood Culture - Preliminary NO GROWTH AFTER 72 HOURS 07/05/22 15:15 Peripheral/Venous Blood Culture - Preliminary NO GROWTH AFTER 72 HOURS 07/07/22 14:29 Peripheral/Venous Blood Culture - Preliminary NO GROWTH AFTER 24 HOURS 07/07/22 14:29 Peripheral/Venous Blood Culture - Preliminary NO GROWTH AFTER 24 HOURS Tian/IV: Voiding Method External Female Catheter Active Medications - Current Medications Current Medications: Generic Name Dose Route Start Last Admin Trade Name Freq PRN Reason Stop Dose Admin Acetaminophen 650 mg 06/28/22 03:09 Acetaminophen 325 Mg Tab PO Q6H PRN Pain MILD(1-3)/Fever >100.5/MURILLO Lipase/Protease/Amylase 1 each 07/05/22 11:00 Lipase 10,500/Protease 25,000/Amylase 43,750 (Units) Dr [place] FEEDTUBE PRN PRN For Clogged Feeding Tube Apixaban 5 mg 07/10/22 10:00 Apixaban 5 Mg Tab FEEDTUBE Q12HR SHANTHI Protocol Apixaban 10 mg 07/05/22 12:00 07/08/22 22:13 Apixaban 5 Mg Tab FEEDTUBE 07/09/22 22:01 10 mg Q12HR SHANTHI Administration Protocol Atorvastatin Calcium 40 mg 07/05/22 10:38 07/08/22 22:15 Atorvastatin 40 Mg Tab FEEDTUBE 40 mg QHS SHANTHI Administration Dextrose 50 ml 06/30/22 09:00 07/07/22 06:21 Dextrose 50% In Water (25gm) 50 Ml Syringe IV 50 ml Q30MIN PRN Administration Hypoglycemia Protocol Haloperidol 5 mg 07/05/22 11:00 07/08/22 22:14 Haloperidol 5 Mg Tab FEEDTUBE 5 mg BID SHANTHI Administration Hydrophilic Ointment 1 applic 07/05/22 12:00 Lip Therapy Vaseline TP Q2H PRN Dry Lips Propofol 1,000 mg in 100 mls @ 4.188 mls/hr 07/05/22 10:00 07/08/22 20:16 Diprivan 10 Mg/Ml IV 5.97 mcg/kg/min TITR SHANTHI 5 mls/hr Titration Protocol 5 MCG/KG/MIN Phenylephrine HCl 100 mg/ 250 mls @ 10.47 mls/hr 07/05/22 10:45 07/06/22 08:45 Sodium Chloride IV 0 mcg/kg/min TITRATE SHANTHI 0 mls/hr Titration Protocol 0.5 MCG/KG/MIN Sodium Chloride 500 mls @ 1 mls/hr 07/05/22 12:00 Nacl 0.9% 500 Ml IV DIRECT PRN ARTERIAL LINE FLUSH Vasopressin 20 unit/ Sodium 101 mls @ 9.09 mls/hr 07/05/22 12:00 07/06/22 08:45 Chloride IV 0 units/min TITR SHANTHI 0 mls/hr Titration Protocol 0.03 UNITS/MIN Fentanyl Citrate 1,000 mcg in 100 mls @ 2.5 mls/hr 07/05/22 14:00 07/05/22 14:41 Fentanyl Drip Premix IV 25 mcg/hr TITR SHANTHI 2.5 mls/hr Administration Protocol 25 MCG/HR Insulin Glargine 5 units 07/08/22 22:00 07/08/22 22:15 Insulin Glargine 100 Units/Ml SUB-Q 5 units QHS SHANTHI Administration Lansoprazole 30 mg 07/06/22 10:00 07/08/22 10:07 Lansoprazole 30 Mg Solutab FEEDTUBE 30 mg QDAY SHANTHI Administration Levothyroxine Sodium 112 mcg 07/05/22 12:00 07/08/22 10:08 Levothyroxine 112 Mcg Tab FEEDTUBE 112 mcg QAM SHANTHI Administration Mirtazapine 15 mg 07/07/22 22:00 07/08/22 22:15 Mirtazapine 15 Mg Solutab PO 15 mg QHS SHANTHI Administration Multi-Ingred Cream/Lotion/Oil/Oint 1 applic 07/05/22 11:00 Mineral Oil/Petrolatum, White Ophth Oint 3.5 Gm OU Q4H PRN Dry Eye(s) Nicotine 21 mg 07/04/22 15:00 07/08/22 10:09 Nicotine 21 Mg/24 Hr Patch TD 21 mg QDAY SHANTHI Administration Ondansetron HCl 4 mg 06/28/22 03:09 06/28/22 05:44 Ondansetron 4 Mg/2 Ml Inj IV 4 mg Q8H PRN Administration Nausea And Vomiting Senna/Docusate Sodium 1 tab 07/05/22 11:00 07/08/22 22:13 Sennosides/Docusate Sodium 8.6/50 Mg Tab FEEDTUBE 1 tab BID SHANTHI Administration Simple Syrup 15 ml 07/05/22 11:00 Simple Syrup 15 Ml FEEDTUBE PRN PRN Hypoglycemia Simple Syrup 30 ml 07/05/22 11:00 Simple Syrup 15 Ml FEEDTUBE PRN PRN Hypoglycemia Sodium Bicarbonate 325 mg 07/05/22 10:26 Sodium Bicarbonate 325 Mg Tab FEEDTUBE PRN PRN For Clogged Feeding Tube Sodium Chloride 10 ml 06/28/22 10:00 07/08/22 22:47 Sodium Chloride 0.9% 10 Ml Flush Syringe IV 10 ml BID SHANTHI Administration Sodium Chloride 10 ml 06/28/22 03:09 Sodium Chloride 0.9% 10 Ml Flush Syringe IV PRN PRN LINE FLUSH Valproic Acid 250 mg 07/08/22 18:00 07/08/22 18:44 Valproic Acid 250 Mg/5 Ml Oral Liqd FEEDTUBE 250 mg Q6HR SHANTHI Administration Nutrition/Malnutrition Assess - Dietary Evaluation Nutrition/Malnutrition Findings: Nutrition Notes Start: 06/28/22 11:39 Freq: Status: Active Protocol: Document 07/07/22 13:47 CHRISTAL (Rec: 07/07/22 14:11 CHRISTAL [id number]) Nutrition Notes Initial or Follow up Reassessment Current Diagnosis COPD,Diabetes,Hypertension Other Pertinent Diagnosis S/p PEA/ROSC, s/p STEFFANIE, s/p DKA , DVT s/p LE Angioplasty. Current Diet TF-Vital High Protein @ 65 ml/ hr (from D 07/05). Labs/Tests 07/07: CO2 31, BUN 21. Pertinent Medications 07/07: Levothyroxine, Propofol @ 4.188 ml/hr (111Kcal), others nutritionally unremarkable. Height 5 ft 4 in Weight 139.6 kg [place] Body Weight (kg) 54.54 BMI 52.8 Weight change and time frame No body weight change reported in 9 days. Weight Status Morbidly Obese Subjective/Other Information RD consult for TF tolerance/ continuation assessment. TF continues as prescribed, no further information on TF tolerance at the time, will assess aF/U. Pt continues on Mechanical Ventilation, O2 saturation @ 98%, and will continue off sedation, according to Physical Assessment History notes. Pt has been producing 1 BM daily no more constipation at the time, according to Physical Assessment History notes. Percent of energy/protein needs met: Prescribed TF-Vital High Protein @ 65 ml/hr provides for energy/protein needs (1, 550 Kcal/136 g) during LOS, 101% Kcal; 100% AA. Burn Absent Trauma Absent GI Symptoms None Food Allergy No Skin Integrity/Comment Bilateral LE redness/echimosis . Current % PO Other Minimum of two criteria No Fluid Accumulation N/A Reduced Vp Of Product Strength N/A (non-severe) Protein-Calorie Malnutrition N\A #2 Nutrition Diagnosis Inadequate oral intake Diagnosis Progress(for reassessment Continues documentation) #1 Nutrition Diagnosis Overweight/obesity Diagnosis Progress(for reassessment Continues documentation) Is patient on ventilator? Yes Is Patient Ambulatory and/or Out of Bed No REE-([facility]-confined to bed) 2392.512 Kcal/Kg value to use for calculation 11 Approximate Energy Requirements Using 1536 kcal/Kg Calculation Used for Recommendations Kcal/kg Additional Notes Protein: 1.2-2 g/Kg AdjBW; 115 -196 g/day. Fluids: 1 ml/Kcal, or as per MD. Nutrition Intervention Nutrition Support: Continue TF-Vital High Protein @ 65 ml/hr. Flush: 50 ml Q 4 hr, or as per MD. Kcal 1,550 Protein (gm) 136 Carbohydrates (gm) 174 Fat (gm) 36 Fluid (mL) 1,296 Fiber (gm) 0 % RDI: 101% Kcal; 100% AA. Goal #1 Provide at least 75% of energy /protein needs through Enteral Feeding during LOS. Follow-Up By: 07/13/22 Additional Comments Start monitoring TF tolerance, ventilation status, and BM.
[2022-07-08] MEDS: HALOPERIDOL 5 MG TAB FEEDTUBE SCH ×2 (10:07→22:14)
[2022-07-08] MEDS: LANSOPRAZOLE 30 MG SOLUTAB FEEDTUBE SCH (10:07)
[2022-07-08] MEDS: LEVOTHYROXINE 112 MCG TAB FEEDTUBE SCH (10:08)
[2022-07-08] MEDS: SENNOSIDES/DOCUSATE SODIUM 8.6/50 MG TAB FEEDTUBE SCH ×3 (10:08→22:13)
[2022-07-08] MEDS: APIXABAN 5 MG TAB FEEDTUBE SCH ×2 (10:08→22:13)
[2022-07-08] MEDS: NICOTINE 21 MG/24 HR PATCH TD SCH (10:09)
--- NOTE | 2022-07-08 11:14 | Progress Note ---
Assessment and Plan 1. Acute kidney injury: Suspect vasomotor STEFFANIE in the setting of DKA/volume depletion. Renal US negative for hydro/stone. Monitor renal function. Creatinine leveled off. Avoid nephrotoxic agents. Meds dosage based on GFR. 2. FEN: Hyperkalemia, improved. Anion-gap Metabolic acidosis, 2/2 DKA, improved, monitor. Replete lytes as needed. Monitor lytes and volume status. 3. S/p Cardiac arrest 07/05: Currently in ICU. Followed by Cards. 4. Resp failure: Currently on MV. 5. A.fib with RVR: SR now. Followed by Cards. 6. DKA: Admits to stop taking meds at home. S/p Insulin drip. Improved. Monitor. 7. Acute DVT involving the external iliac veins bilaterally with thrombus extending distally bilaterally: S/p LE angioplsty Followed by Vascular. 8. Hyotension: Off pressors. Monitor BP. 9. H/o COPD. Subjective: Patient was seen and examined at the bedside. Examination: General appearance: well-developed, obese, appears stated age, intubated, on MV HEENT: atraumatic, no icterus Neck: trachea midline Respiratory: coarse breath sounds heard Heart: S1S2, regular, no murmur Abdomen: soft, obese, bowel sounds heard, NT Integumentary: LE dressing noted Neurologic: opens eyes Ext: trace Ext and dependent edema Subjective Date of service: 07/08/22 Principal diagnosis: AHRF; DKA; Hyperkalemia; COPD; ? cellulitis; PVD; STEFFANIE; Morbid obesity; ?JACKLYN Objective - Vital Signs Vital signs: Vital Signs - 12hr 07/08/22 07/08/22 07/08/22 00:00 00:12 00:20 Temperature 100.6 F H Pulse Rate 86 83 Pulse Rate [ 81 From Monitor] Respiratory 23 Rate Blood Pressure 93/45 84/48 O2 Sat by Pulse 95 95 Oximetry 07/08/22 07/08/22 07/08/22 01:00 02:00 03:00 Temperature Pulse Rate 77 73 76 Pulse Rate [ From Monitor] Respiratory 23 21 23 Rate Blood Pressure 98/53 97/52 98/53 O2 Sat by Pulse 92 92 92 Oximetry 07/08/22 07/08/22 07/08/22 04:00 04:20 04:27 Temperature 100.6 F H Pulse Rate 82 75 Pulse Rate [ 76 From Monitor] Respiratory 25 H Rate Blood Pressure 110/59 102/52 O2 Sat by Pulse 90 92 Oximetry 07/08/22 07/08/22 07/08/22 05:00 06:00 07:00 Temperature Pulse Rate 77 80 77 Pulse Rate [ From Monitor] Respiratory 24 25 H 22 Rate Blood Pressure 96/49 96/49 123/65 O2 Sat by Pulse 92 94 93 Oximetry 07/08/22 07/08/22 07/08/22 07:26 08:00 08:50 Temperature 99.5 F Pulse Rate 73 77 Pulse Rate [ 73 From Monitor] Respiratory 22 25 H Rate Blood Pressure 119/62 119/62 O2 Sat by Pulse 94 94 Oximetry 07/08/22 07/08/22 09:00 10:00 Temperature Pulse Rate 79 83 Pulse Rate [ From Monitor] Respiratory 26 H 29 H Rate Blood Pressure 107/71 107/71 O2 Sat by Pulse 94 94 Oximetry - Lab 07/08/22 05:00 07/08/22 05:00 Most recent lab results ABG pH 7.423 pH Units (7.350-7.450) 07/08/22 04:15 ABG pCO2 45.8 mm Hg 07/08/22 04:15 ABG pO2 63.4 mm Hg (80.0-90.0) L 07/08/22 04:15 ABG HCO3 29.2 mmol/L (20.0-26.0) H 07/08/22 04:15 ABG O2 Saturation 94.0 % (95.0-99.0) L 07/08/22 04:15 Calcium 8.9 mg/dL (8.4-10.2) 07/08/22 04:00 Phosphorus 2.10 mg/dL (2.5-4.5) L D 07/02/22 08:12 Magnesium 2.00 mg/dL (1.7-2.3) 07/05/22 Unknown Urine Creatinine 85.4 mg/dL (0.1-20.0) H 06/28/22 08:10 Urine Sodium 10 mmol/L 06/28/22 08:10 Urine Total Protein 49 mg/dL (5-11.8) H 06/28/22 08:10 Medications & Allergies - Medications Allergies/Adverse Reactions: Allergies ciprofloxacin [From Cipro] Allergy (Verified 08/15/22 12:07) Unknown Penicillins Allergy (Verified 05/28/22 12:07) Unknown Home Medications: Home Medications Medication Instructions Recorded Confirmed Last Taken Type Apixaban [Eliquis] 5 mg PO BID 04/13/21 06/28/22 Unknown History Empagliflozin [Jardiance] 25 mg DAILY 04/13/21 06/28/22 Unknown History Fenofibrate 160 mg PO DAILY 04/13/21 06/28/22 Unknown History Glimepiride 4 mg BID 04/13/21 06/28/22 Unknown History Insulin Aspart (Nf) [NovoLOG 100 unit SQ PRN PRN 04/13/21 06/28/22 Unknown History Flexpen] Levothyroxine [Synthroid] 112 mcg PO QAM 04/13/21 06/28/22 Unknown History Lisinopril/Hydrochlorothiazide 1 tab PO QDAY 04/13/21 06/28/22 Unknown History [Zestoretic 20-12.5 mg] [place] Carbonate 600 mg PO QHS 04/13/21 06/28/22 Unknown History [place] Carbonate [Eskalith] 150 mg PO QAM 04/13/21 06/28/22 Unknown History Lurasidone [Latuda] 40 mg QHS 04/13/21 06/28/22 Unknown History Oxybutynin Chloride [Ditropan Xl] 15 mg PO QDAY 04/13/21 06/28/22 Unknown History Semaglutide [Ozempic] 1 unit SQ 1XW 04/13/21 06/28/22 Unknown History Venlafaxine HCl [Venlafaxine HCl 150 mg DAILY 04/13/21 06/28/22 Unknown History ER] buPROPion SR [Wellbutrin SR] 100 mg PO DAILY 04/13/21 06/28/22 Unknown History Doxycycline Hyclate [Doxycycline 100 mg PO Q12HR 7 Days #14 04/14/21 06/28/22 Unknown Rx Hyclate TAB] Active Medications: Generic Name Dose Route Start Last Admin Trade Name Freq PRN Reason Stop Dose Admin Acetaminophen 650 mg 06/28/22 03:09 Acetaminophen 325 Mg Tab PO Q6H PRN Pain MILD(1-3)/Fever >100.5/MURILLO Lipase/Protease/Amylase 1 each 07/05/22 11:00 Lipase 10,500/Protease 25,000/Amylase 43,750 (Units) Dr [place] FEEDTUBE PRN PRN For Clogged Feeding Tube Apixaban 5 mg 07/10/22 10:00 Apixaban 5 Mg Tab FEEDTUBE Q12HR SHANTHI Protocol Apixaban 10 mg 07/05/22 12:00 07/08/22 10:08 Apixaban 5 Mg Tab FEEDTUBE 07/09/22 22:01 10 mg Q12HR SHANTHI Administration Protocol Atorvastatin Calcium 40 mg 07/05/22 10:38 07/07/22 23:31 Atorvastatin 40 Mg Tab FEEDTUBE 40 mg QHS SHANTHI Administration Dextrose 50 ml 06/30/22 09:00 07/07/22 06:21 Dextrose 50% In Water (25gm) 50 Ml Syringe IV 50 ml Q30MIN PRN Administration Hypoglycemia Protocol Haloperidol 5 mg 07/05/22 11:00 07/08/22 10:07 Haloperidol 5 Mg Tab FEEDTUBE 5 mg BID SHANTHI Administration Hydrophilic Ointment 1 applic 07/05/22 12:00 Lip Therapy Vaseline TP Q2H PRN Dry Lips Propofol 1,000 mg in 100 mls @ 4.188 mls/hr 07/05/22 10:00 07/08/22 09:45 Diprivan 10 Mg/Ml IV 0 mcg/kg/min TITR SHANTHI 0 mls/hr Titration Protocol 5 MCG/KG/MIN Phenylephrine HCl 100 mg/ 250 mls @ 10.47 mls/hr 07/05/22 10:45 07/06/22 08:45 Sodium Chloride IV 0 mcg/kg/min TITRATE SHANTHI 0 mls/hr Titration Protocol 0.5 MCG/KG/MIN Sodium Chloride 500 mls @ 1 mls/hr 07/05/22 12:00 Nacl 0.9% 500 Ml IV DIRECT PRN ARTERIAL LINE FLUSH Vasopressin 20 unit/ Sodium 101 mls @ 9.09 mls/hr 07/05/22 12:00 07/06/22 08:45 Chloride IV 0 units/min TITR SHANTHI 0 mls/hr Titration Protocol 0.03 UNITS/MIN Fentanyl Citrate 1,000 mcg in 100 mls @ 2.5 mls/hr 07/05/22 14:00 07/05/22 14:41 Fentanyl Drip Premix IV 25 mcg/hr TITR SHANTHI 2.5 mls/hr Administration Protocol 25 MCG/HR Lansoprazole 30 mg 07/06/22 10:00 07/08/22 10:07 Lansoprazole 30 Mg Solutab FEEDTUBE 30 mg QDAY SHANTHI Administration Levothyroxine Sodium 112 mcg 07/05/22 12:00 07/08/22 10:08 Levothyroxine 112 Mcg Tab FEEDTUBE 112 mcg QAM SHANTHI Administration Mirtazapine 15 mg 07/07/22 22:00 07/07/22 23:32 Mirtazapine 15 Mg Solutab PO 15 mg QHS SHANTHI Administration Multi-Ingred Cream/Lotion/Oil/Oint 1 applic 07/05/22 11:00 Mineral Oil/Petrolatum, White Ophth Oint 3.5 Gm OU Q4H PRN Dry Eye(s) Nicotine 21 mg 07/04/22 15:00 07/08/22 10:09 Nicotine 21 Mg/24 Hr Patch TD 21 mg QDAY SHANTHI Administration Ondansetron HCl 4 mg 06/28/22 03:09 06/28/22 05:44 Ondansetron 4 Mg/2 Ml Inj IV 4 mg Q8H PRN Administration Nausea And Vomiting Senna/Docusate Sodium 1 tab 07/05/22 11:00 07/08/22 10:08 Sennosides/Docusate Sodium 8.6/50 Mg Tab FEEDTUBE 1 tab BID SHANTHI Administration Simple Syrup 15 ml 07/05/22 11:00 Simple Syrup 15 Ml FEEDTUBE PRN PRN Hypoglycemia Simple Syrup 30 ml 07/05/22 11:00 Simple Syrup 15 Ml FEEDTUBE PRN PRN Hypoglycemia Sodium Bicarbonate 325 mg 07/05/22 10:26 Sodium Bicarbonate 325 Mg Tab FEEDTUBE PRN PRN For Clogged Feeding Tube Sodium Chloride 10 ml 06/28/22 10:00 07/08/22 10:07 Sodium Chloride 0.9% 10 Ml Flush Syringe IV 10 ml BID SHANTHI Administration Sodium Chloride 10 ml 06/28/22 03:09 Sodium Chloride 0.9% 10 Ml Flush Syringe IV PRN PRN LINE FLUSH Valproic Acid 250 mg 07/05/22 18:00 07/08/22 06:07 Valproic Acid 250 Mg/5 Ml Oral Liqd FEEDTUBE 250 mg Q6HR SHANTHI Administration
--- NOTE | 2022-07-08 12:19 | Progress Note ---
Subjective - Reason for Consult Consult date: 07/08/22 Reason for consult: hx of bipolar - Chief Complaint Chief complaint: The patient was seen today. She is on a ventilator. She is awake and able to answer questions. She is now in restraints. I ask her was she trying to pull things out, she nods her head. The patient nods her head again when I ask her if the medication I gave her helped. When asking about SI/HI or hallucinations, she shakes her head. ROS On ventilator MENTAL STATUS EXAMINATION General Appearance and Behavior: Intubated Cooperation: cooperative Psychomotor Behavior: unable to assess Mood: Anxious Affect and affective range: congruent with stated mood Thought Process: unable to assess Thought Content: unable to assess Speech: patient intubated; unable to assess Suicidal Ideation: Denies Homicidal Ideation: Denies Hallucination: Denies Delusions: unable to assess Impulse Control: Normal Insight and Judgment: unable to assess Memory: Limited Attention: sedated Orientation: unable to assess ASSESSMENT Bipolar disorder TREATMENT Mirtazepine solutab 15mg po qhs to promote rest Maintain haldol 5 mg BID Changed to Valproic sodium IV q12h Risks, benefits and alternatives of medications discussed with the patient, questions answered and consent obtained from patient. PSYCHOTHERAPY: Supportive psychotherapy provided MEDICAL: Per primary team DELIRIUM PRECAUTIONS: Please re-orient patient frequently, keep lights on during the day, and minimize benzodiazepines and opiates as these medications could worsen patient's confusion. CONSERVATION OR HERITAGE ARCHITECT: Defer to primary DISPOSITION: Do not recommend acute inpatient psychiatric hospitalization at this time. FOLLOW-UP: Will follow Thank you for the consult. Please contact with any questions and/or concerns. Case staffed with Dr. Andrews Mental Status Exam - Vital signs Last Vital Signs Temp 100.0 F H 07/08/22 12:12 Pulse 83 07/08/22 10:00 Resp 29 H 07/08/22 10:00 BP 107/71 07/08/22 10:00 Pulse Ox 94 07/08/22 10:00
--- NOTE | 2022-07-08 14:03 | Progress Note ---
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 Non-insulin dependent type II diabetes mellitus with hyperglycemia Hypertension Hyperlipidemia Hypothyroidism H/O COPD Bipolar Disorder Tobacco use disorder/Nicotine dependence Morbid obesity Daily SBTs as tolerated. When appropriate, plan to liberate from MVS Give one dose of Furosemide, appears to be volume up Updated the family at the bedside Adjust insulin therapy for better glycemic control -Titrate supplemental oxygen to keep SpO2 89-92% -VAP bundle addressed, aspiration precautions HOB>30 -Stress ulcer prophylaxis- Famotidine -VTE prophylaxis-on therapeutic Apixaban -Titrate Propofol to keep RASS 0 to -1 -Prn Fentanyl for analgesia, titrate to CPOT >3 -Daily SBT and SAT trials as tolerated, daily assessment for readiness to wean -ABG and CXR as clinically indicated -Enteric nutrition support, tube feeding -Mobility, off loading and frequent turning per facility protocol to prevent pressure ulcers -Trend temperature curve and WCC -Maintain euglycemia. Keep blood glucose 140-180mg/dL while critically ill. Avoid hypoglycemia -Monitor hemodynamics closely -Supportive transfusions as clinically indicated to keep HgB >7g/dL -Continue Nicotine patch and nicotine withdrawal precautions -Avoid nephrotxins, recent recovery from STEFFANIE/ATN -PICC for vasoactive drug administration Discussed with respiratory care, nursing care CONDITION: CRITICAL PROGNOSIS: GUARDED CODE STATUS: FULL CODE The high probability of a clinically significant, sudden or life threatening deterioration of the [multiple] system(s) required my full and direct attention, intervention and personal management. The aggregate critical care time was [35] minutes. This time is in addition to time spent performing reported procedures but includes the following: [x] Data Review and interpretation [x] Patient assessment and monitoring of vital signs [x] Documentation [x] Medication orders and management Subjective Date of service: 07/08/22 Principal diagnosis: AHRF; DKA; Hyperkalemia; COPD; ? cellulitis; PVD; STEFFANIE; Morb id obesity; ?JACKLYN Interval history: Patient is seen today for: Acute hypoxemic respiratory failure; DKA; Hyperkalemia; COPD; Possible cellulitis; PVD; STEFFANIE; Morbid obesity Seen and examined at bedside; 24hour events reviewed; nursing and respiratory care staff consulted; no adverse overnight events reported to me; s/p cardiac arrest ,asystole with ROSC. Intubated on MVS Obeying some simple commands, on SBT but had increased work of breathing 3 hours into the trial. Sister and nice visiting at the bedside CTA shows small PE-discussed with Vascular. Still unclear why she had the cardiac arrest.. Objective Vital Signs - 12hr 07/08/22 07/08/22 07/08/22 03:00 04:00 04:20 Temperature Pulse Rate 76 82 75 Pulse Rate [ 76 From Monitor] Respiratory 23 25 H Rate Blood Pressure 98/53 110/59 102/52 O2 Sat by Pulse 92 90 92 Oximetry 07/08/22 07/08/22 07/08/22 04:27 05:00 06:00 Temperature 100.6 F H Pulse Rate 77 80 Pulse Rate [ From Monitor] Respiratory 24 25 H Rate Blood Pressure 96/49 96/49 O2 Sat by Pulse 92 94 Oximetry 07/08/22 07/08/22 07/08/22 07:00 07:26 08:00 Temperature 99.5 F Pulse Rate 77 73 Pulse Rate [ 73 From Monitor] Respiratory 22 22 Rate Blood Pressure 123/65 119/62 O2 Sat by Pulse 93 94 Oximetry 07/08/22 07/08/22 07/08/22 08:50 09:00 10:00 Temperature Pulse Rate 77 79 83 Pulse Rate [ From Monitor] Respiratory 25 H 26 H 29 H Rate Blood Pressure 119/62 107/71 107/71 O2 Sat by Pulse 94 94 94 Oximetry 07/08/22 07/08/22 07/08/22 11:00 12:00 12:12 Temperature 100.0 F H Pulse Rate 79 77 Pulse Rate [ 87 From Monitor] Respiratory 27 H 24 Rate Blood Pressure 131/68 126/62 O2 Sat by Pulse 94 93 Oximetry Constitutional: no acute distress, other (orally intubated) Eyes: non-icteric ENT: oropharynx moist Neck: supple, no lymphadenopathy, no JVD, other (large circumference) Effort: mildly labored Ascultation: Bilateral: clear, diminished breath sounds Percussion: Bilateral: not dull Cardiovascular: regular rate and rhythm, other (S1S2) Gastrointestinal: normoactive bowel sounds, non-tender, tender, non-distended Integumentary: rash (shins), other (erythema to shins) Extremities: no cyanosis, pink and warm, no ischemia or petechiae, edema (trace to 1+) Neurologic: non-focal exam (grossly), pupils equal and round Psychiatric: mood appropriate, affect normal CBC and BMP: 07/08/22 05:00 07/08/22 05:00 ABG, PT/INR, D-dimer: ABG ABG pH 7.423 pH Units (7.350-7.450) 07/08/22 04:15 ABG pCO2 45.8 mm Hg 07/08/22 04:15 ABG pO2 63.4 mm Hg (80.0-90.0) L 07/08/22 04:15 ABG O2 Saturation 94.0 % (95.0-99.0) L 07/08/22 04:15 PT/INR, D-dimer PT 17.3 Sec. (12.2-14.9) H 07/02/22 20:28 INR 1.26 (0.87-1.13) H 07/02/22 20:28 Abnormal lab findings: Abnormal Labs 06/27/22 06/27/22 06/27/22 20:48 20:48 23:56 WBC 18.7 H RBC Hgb 15.1 H Hct 47.1 H Plt Count Lymph % (Auto) 6.3 L [place] % (Auto) Lymph # (Auto) [place] # (Auto) 0.9 H Seg Neutrophils % 88.6 H Seg Neuts % (Manual) Lymphocytes % (Manual) Seg Neutrophils # 16.5 H Seg Neutrophils # Man Lymphocytes # (Manual) PT INR APTT Heparin Anti-Xa Level ABG pH ABG pO2 ABG HCO3 ABG O2 Saturation ABG Base Excess ABG Hemoglobin Oxyhemoglobin Sodium 123 L 121 L Potassium 6.9 H* 6.4 H* Chloride 82.4 L 79.7 L Carbon Dioxide 7 L* 8 L* BUN 50 H 54 H Creatinine 2.2 H 2.5 H Glucose 578 H* 562 H* POC Glucose Hemoglobin A1c Calcium Phosphorus 10.40 H Magnesium 2.70 H 2.60 H AST 50 H Troponin T 0.080 H NT-Pro-B Natriuret Pep 4137 H Albumin 3.1 L Triglycerides 349 H LDL Cholesterol Direct 37 L HDL Cholesterol 38 L PTH Intact Urine Creatinine Urine Total Protein 06/28/22 06/28/22 06/28/22 01:45 03:17 03:35 WBC RBC Hgb Hct Plt Count Lymph % (Auto) [place] % (Auto) Lymph # (Auto) [place] # (Auto) Seg Neutrophils % Seg Neuts % (Manual) Lymphocytes % (Manual) Seg Neutrophils # Seg Neutrophils # Man Lymphocytes # (Manual) PT INR APTT Heparin Anti-Xa Level ABG pH ABG pO2 ABG HCO3 ABG O2 Saturation ABG Base Excess ABG Hemoglobin Oxyhemoglobin Sodium 120 L 121 L Potassium 6.2 H* 5.4 H Chloride 79.1 L 84.7 L Carbon Dioxide 7 L* 7 L* BUN 55 H 57 H Creatinine 2.6 H 2.6 H Glucose 551 H* 486 H POC Glucose 568 H Hemoglobin A1c Calcium 8.1 L 7.7 L Phosphorus Magnesium AST Troponin T NT-Pro-B Natriuret Pep Albumin Triglycerides LDL Cholesterol Direct HDL Cholesterol PTH Intact Urine Creatinine Urine Total Protein 06/28/22 06/28/22 06/28/22 03:35 04:05 05:13 WBC RBC Hgb Hct Plt Count Lymph % (Auto) [place] % (Auto) Lymph # (Auto) [place] # (Auto) Seg Neutrophils % Seg Neuts % (Manual) Lymphocytes % (Manual) Seg Neutrophils # Seg Neutrophils # Man Lymphocytes # (Manual) PT INR APTT Heparin Anti-Xa Level ABG pH ABG pO2 ABG HCO3 ABG O2 Saturation ABG Base Excess ABG Hemoglobin Oxyhemoglobin Sodium Potassium Chloride Carbon Dioxide BUN Creatinine Glucose POC Glucose 508 H 443 H Hemoglobin A1c Calcium Phosphorus 9.20 H Magnesium AST Troponin T NT-Pro-B Natriuret Pep Albumin Triglycerides LDL Cholesterol Direct HDL Cholesterol PTH Intact Urine Creatinine Urine Total Protein 06/28/22 06/28/22 06/28/22 05:40 06:30 07:39 WBC RBC Hgb Hct Plt Count Lymph % (Auto) [place] % (Auto) Lymph # (Auto) [place] # (Auto) Seg Neutrophils % Seg Neuts % (Manual) Lymphocytes % (Manual) Seg Neutrophils # Seg Neutrophils # Man Lymphocytes # (Manual) PT INR APTT Heparin Anti-Xa Level ABG pH ABG pO2 ABG HCO3 ABG O2 Saturation ABG Base Excess ABG Hemoglobin Oxyhemoglobin Sodium 124 L Potassium 5.1 H Chloride 86.5 L Carbon Dioxide 13 L BUN 59 H Creatinine 2.6 H Glucose 396 H POC Glucose 419 H 377 H Hemoglobin A1c Calcium 8.0 L Phosphorus Magnesium AST Troponin T NT-Pro-B Natriuret Pep Albumin Triglycerides LDL Cholesterol Direct HDL Cholesterol PTH Intact Urine Creatinine Urine Total Protein 06/28/22 06/28/22 06/28/22 08:10 08:18 09:32 WBC RBC Hgb Hct Plt Count Lymph % (Auto) [place] % (Auto) Lymph # (Auto) [place] # (Auto) Seg Neutrophils % Seg Neuts % (Manual) Lymphocytes % (Manual) Seg Neutrophils # Seg Neutrophils # Man Lymphocytes # (Manual) PT INR APTT Heparin Anti-Xa Level ABG pH ABG pO2 ABG HCO3 ABG O2 Saturation ABG Base Excess ABG Hemoglobin Oxyhemoglobin Sodium Potassium Chloride Carbon Dioxide BUN Creatinine Glucose POC Glucose 390 H 347 H Hemoglobin A1c Calcium Phosphorus Magnesium AST Troponin T NT-Pro-B Natriuret Pep Albumin Triglycerides LDL Cholesterol Direct HDL Cholesterol PTH Intact Urine Creatinine 85.4 H Urine Total Protein 49 H 06/28/22 06/28/22 06/28/22 10:46 11:40 12:40 WBC RBC Hgb Hct Plt Count Lymph % (Auto) [place] % (Auto) Lymph # (Auto) [place] # (Auto) Seg Neutrophils % Seg Neuts % (Manual) Lymphocytes % (Manual) Seg Neutrophils # Seg Neutrophils # Man Lymphocytes # (Manual) PT INR APTT Heparin Anti-Xa Level ABG pH ABG pO2 ABG HCO3 ABG O2 Saturation ABG Base Excess ABG Hemoglobin Oxyhemoglobin Sodium Potassium Chloride Carbon Dioxide BUN Creatinine Glucose POC Glucose 313 H 274 H 258 H Hemoglobin A1c Calcium Phosphorus Magnesium AST Troponin T NT-Pro-B Natriuret Pep Albumin Triglycerides LDL Cholesterol Direct HDL Cholesterol PTH Intact Urine Creatinine Urine Total Protein 06/28/22 06/28/22 06/28/22 13:38 14:13 14:13 WBC 19.7 H RBC 5.33 H Hgb 16.2 H Hct 49.4 H Plt Count Lymph % (Auto) [place] % (Auto) Lymph # (Auto) [place] # (Auto) Seg Neutrophils % Seg Neuts % (Manual) Lymphocytes % (Manual) Seg Neutrophils # Seg Neutrophils # Man Lymphocytes # (Manual) PT INR APTT Heparin Anti-Xa Level ABG pH ABG pO2 ABG HCO3 ABG O2 Saturation ABG Base Excess ABG Hemoglobin Oxyhemoglobin Sodium 125 L Potassium 5.4 H Chloride 87.6 L Carbon Dioxide 18 L BUN 58 H Creatinine 2.5 H Glucose 199 H POC Glucose 205 H Hemoglobin A1c Calcium Phosphorus 6.90 H D Magnesium AST Troponin T NT-Pro-B Natriuret Pep Albumin Triglycerides LDL Cholesterol Direct HDL Cholesterol PTH Intact Urine Creatinine Urine Total Protein 06/28/22 06/28/22 06/28/22 14:56 15:07 15:07 WBC RBC Hgb 15.5 H Hct 46.8 H Plt Count Lymph % (Auto) [place] % (Auto) Lymph # (Auto) [place] # (Auto) Seg Neutrophils % Seg Neuts % (Manual) Lymphocytes % (Manual) Seg Neutrophils # Seg Neutrophils # Man Lymphocytes # (Manual) PT INR APTT Heparin Anti-Xa Level ABG pH ABG pO2 ABG HCO3 ABG O2 Saturation ABG Base Excess ABG Hemoglobin Oxyhemoglobin Sodium 128 L Potassium 5.3 H Chloride 94.0 L Carbon Dioxide 14 L BUN 59 H Creatinine 2.4 H Glucose 183 H POC Glucose 194 H Hemoglobin A1c Calcium 7.8 L Phosphorus Magnesium AST Troponin T NT-Pro-B Natriuret Pep Albumin Triglycerides LDL Cholesterol Direct HDL Cholesterol PTH Intact Urine Creatinine Urine Total Protein 06/28/22 06/28/22 06/28/22 15:07 15:54 17:10 WBC RBC Hgb Hct Plt Count Lymph % (Auto) [place] % (Auto) Lymph # (Auto) [place] # (Auto) Seg Neutrophils % Seg Neuts % (Manual) Lymphocytes % (Manual) Seg Neutrophils # Seg Neutrophils # Man Lymphocytes # (Manual) PT 19.6 H INR 1.47 H APTT Heparin Anti-Xa Level ABG pH ABG pO2 ABG HCO3 ABG O2 Saturation ABG Base Excess ABG Hemoglobin Oxyhemoglobin Sodium Potassium Chloride Carbon Dioxide BUN Creatinine Glucose POC Glucose 189 H 216 H Hemoglobin A1c Calcium Phosphorus Magnesium AST Troponin T NT-Pro-B Natriuret Pep Albumin Triglycerides LDL Cholesterol Direct HDL Cholesterol PTH Intact Urine Creatinine Urine Total Protein 06/28/22 06/28/22 06/28/22 17:59 18:54 19:49 WBC RBC Hgb Hct Plt Count Lymph % (Auto) [place] % (Auto) Lymph # (Auto) [place] # (Auto) Seg Neutrophils % Seg Neuts % (Manual) Lymphocytes % (Manual) Seg Neutrophils # Seg Neutrophils # Man Lymphocytes # (Manual) PT INR APTT Heparin Anti-Xa Level ABG pH ABG pO2 ABG HCO3 ABG O2 Saturation ABG Base Excess ABG Hemoglobin Oxyhemoglobin Sodium Potassium Chloride Carbon Dioxide BUN Creatinine Glucose POC Glucose 195 H 178 H 166 H Hemoglobin A1c Calcium Phosphorus Magnesium AST Troponin T NT-Pro-B Natriuret Pep Albumin Triglycerides LDL Cholesterol Direct HDL Cholesterol PTH Intact Urine Creatinine Urine Total Protein 06/28/22 06/28/22 06/28/22 20:31 20:31 20:31 WBC RBC Hgb Hct Plt Count Lymph % (Auto) [place] % (Auto) Lymph # (Auto) [place] # (Auto) Seg Neutrophils % Seg Neuts % (Manual) Lymphocytes % (Manual) Seg Neutrophils # Seg Neutrophils # Man Lymphocytes # (Manual) PT INR APTT Heparin Anti-Xa Level 0.19 L ABG pH ABG pO2 ABG HCO3 ABG O2 Saturation ABG Base Excess ABG Hemoglobin Oxyhemoglobin Sodium 129 L Potassium 5.1 H Chloride 95.6 L Carbon Dioxide 15 L BUN 59 H Creatinine 2.4 H Glucose 145 H POC Glucose Hemoglobin A1c 9.7 H Calcium 8.0 L Phosphorus 6.40 H Magnesium AST Troponin T NT-Pro-B Natriuret Pep Albumin Triglycerides LDL Cholesterol Direct HDL Cholesterol PTH Intact Urine Creatinine Urine Total Protein 06/28/22 06/28/22 06/28/22 21:27 22:22 23:36 WBC RBC Hgb Hct Plt Count Lymph % (Auto) [place] % (Auto) Lymph # (Auto) [place] # (Auto) Seg Neutrophils % Seg Neuts % (Manual) Lymphocytes % (Manual) Seg Neutrophils # Seg Neutrophils # Man Lymphocytes # (Manual) PT INR APTT Heparin Anti-Xa Level ABG pH ABG pO2 ABG HCO3 ABG O2 Saturation ABG Base Excess ABG Hemoglobin Oxyhemoglobin Sodium Potassium Chloride Carbon Dioxide BUN Creatinine Glucose POC Glucose 131 H 148 H 146 H Hemoglobin A1c Calcium Phosphorus Magnesium AST Troponin T NT-Pro-B Natriuret Pep Albumin Triglycerides LDL Cholesterol Direct HDL Cholesterol PTH Intact Urine Creatinine Urine Total Protein 06/29/22 06/29/22 06/29/22 00:21 01:27 02:54 WBC RBC Hgb Hct Plt Count Lymph % (Auto) [place] % (Auto) Lymph # (Auto) [place] # (Auto) Seg Neutrophils % Seg Neuts % (Manual) Lymphocytes % (Manual) Seg Neutrophils # Seg Neutrophils # Man Lymphocytes # (Manual) PT INR APTT Heparin Anti-Xa Level ABG pH ABG pO2 ABG HCO3 ABG O2 Saturation ABG Base Excess ABG Hemoglobin Oxyhemoglobin Sodium Potassium Chloride Carbon Dioxide BUN Creatinine Glucose POC Glucose 149 H 172 H 172 H Hemoglobin A1c Calcium Phosphorus Magnesium AST Troponin T NT-Pro-B Natriuret Pep Albumin Triglycerides LDL Cholesterol Direct HDL Cholesterol PTH Intact Urine Creatinine Urine Total Protein 06/29/22 06/29/22 06/29/22 04:05 04:21 04:21 WBC 17.1 H RBC Hgb 14.6 H Hct 43.9 H Plt Count Lymph % (Auto) [place] % (Auto) Lymph # (Auto) [place] # (Auto) Seg Neutrophils % Seg Neuts % (Manual) Lymphocytes % (Manual) Seg Neutrophils # Seg Neutrophils # Man Lymphocytes # (Manual) PT INR APTT Heparin Anti-Xa Level ABG pH ABG pO2 ABG HCO3 ABG O2 Saturation ABG Base Excess ABG Hemoglobin Oxyhemoglobin Sodium 129 L Potassium Chloride 97.6 L Carbon Dioxide 15 L BUN 59 H Creatinine 2.1 H Glucose 140 H POC Glucose 167 H Hemoglobin A1c Calcium 8.0 L Phosphorus Magnesium AST Troponin T NT-Pro-B Natriuret Pep Albumin Triglycerides LDL Cholesterol Direct HDL Cholesterol PTH Intact Urine Creatinine Urine Total Protein 06/29/22 06/29/22 06/29/22 04:21 06:27 07:31 WBC RBC Hgb Hct Plt Count Lymph % (Auto) [place] % (Auto) Lymph # (Auto) [place] # (Auto) Seg Neutrophils % Seg Neuts % (Manual) Lymphocytes % (Manual) Seg Neutrophils # Seg Neutrophils # Man Lymphocytes # (Manual) PT INR APTT Heparin Anti-Xa Level ABG pH ABG pO2 ABG HCO3 ABG O2 Saturation ABG Base Excess ABG Hemoglobin Oxyhemoglobin Sodium Potassium Chloride Carbon Dioxide BUN Creatinine Glucose POC Glucose 138 H 142 H Hemoglobin A1c Calcium Phosphorus Magnesium AST Troponin T NT-Pro-B Natriuret Pep Albumin Triglycerides LDL Cholesterol Direct HDL Cholesterol PTH Intact 382.4 H Urine Creatinine Urine Total Protein 06/29/22 06/29/22 06/29/22 08:33 09:28 10:35 WBC RBC Hgb Hct Plt Count Lymph % (Auto) [place] % (Auto) Lymph # (Auto) [place] # (Auto) Seg Neutrophils % Seg Neuts % (Manual) Lymphocytes % (Manual) Seg Neutrophils # Seg Neutrophils # Man Lymphocytes # (Manual) PT INR APTT Heparin Anti-Xa Level ABG pH ABG pO2 ABG HCO3 ABG O2 Saturation ABG Base Excess ABG Hemoglobin Oxyhemoglobin Sodium Potassium Chloride Carbon Dioxide BUN Creatinine Glucose POC Glucose 141 H 167 H 152 H Hemoglobin A1c Calcium Phosphorus Magnesium AST Troponin T NT-Pro-B Natriuret Pep Albumin Triglycerides LDL Cholesterol Direct HDL Cholesterol PTH Intact Urine Creatinine Urine Total Protein 06/29/22 06/29/22 06/29/22 10:47 11:30 12:33 WBC RBC Hgb Hct Plt Count Lymph % (Auto) [place] % (Auto) Lymph # (Auto) [place] # (Auto) Seg Neutrophils % Seg Neuts % (Manual) Lymphocytes % (Manual) Seg Neutrophils # Seg Neutrophils # Man Lymphocytes # (Manual) PT INR APTT Heparin Anti-Xa Level ABG pH ABG pO2 ABG HCO3 ABG O2 Saturation ABG Base Excess ABG Hemoglobin Oxyhemoglobin Sodium 131 L Potassium Chloride 94.4 L Carbon Dioxide 15 L BUN 59 H Creatinine 2.2 H Glucose 149 H POC Glucose 134 H 146 H Hemoglobin A1c Calcium Phosphorus 5.80 H Magnesium AST Troponin T NT-Pro-B Natriuret Pep Albumin Triglycerides LDL Cholesterol Direct HDL Cholesterol PTH Intact Urine Creatinine Urine Total Protein 06/29/22 06/29/22 06/29/22 13:28 14:33 15:49 WBC RBC Hgb Hct Plt Count Lymph % (Auto) [place] % (Auto) Lymph # (Auto) [place] # (Auto) Seg Neutrophils % Seg Neuts % (Manual) Lymphocytes % (Manual) Seg Neutrophils # Seg Neutrophils # Man Lymphocytes # (Manual) PT INR APTT Heparin Anti-Xa Level ABG pH ABG pO2 ABG HCO3 ABG O2 Saturation ABG Base Excess ABG Hemoglobin Oxyhemoglobin Sodium Potassium Chloride Carbon Dioxide BUN Creatinine Glucose POC Glucose 170 H 188 H 155 H Hemoglobin A1c Calcium Phosphorus Magnesium AST Troponin T NT-Pro-B Natriuret Pep Albumin Triglycerides LDL Cholesterol Direct HDL Cholesterol PTH Intact Urine Creatinine Urine Total Protein 06/29/22 06/29/22 06/29/22 16:14 16:14 16:45 WBC RBC Hgb Hct Plt Count Lymph % (Auto) [place] % (Auto) Lymph # (Auto) [place] # (Auto) Seg Neutrophils % Seg Neuts % (Manual) Lymphocytes % (Manual) Seg Neutrophils # Seg Neutrophils # Man Lymphocytes # (Manual) PT INR APTT Heparin Anti-Xa Level 0.19 L ABG pH ABG pO2 ABG HCO3 ABG O2 Saturation ABG Base Excess ABG Hemoglobin Oxyhemoglobin Sodium 128 L Potassium Chloride 95.8 L Carbon Dioxide 15 L BUN 52 H Creatinine 1.8 H Glucose 138 H POC Glucose 135 H Hemoglobin A1c Calcium 7.9 L Phosphorus Magnesium AST Troponin T NT-Pro-B Natriuret Pep Albumin Triglycerides LDL Cholesterol Direct HDL Cholesterol PTH Intact Urine Creatinine Urine Total Protein 06/29/22 06/29/22 06/29/22 17:47 18:52 20:14 WBC RBC Hgb Hct Plt Count Lymph % (Auto) [place] % (Auto) Lymph # (Auto) [place] # (Auto) Seg Neutrophils % Seg Neuts % (Manual) Lymphocytes % (Manual) Seg Neutrophils # Seg Neutrophils # Man Lymphocytes # (Manual) PT INR APTT Heparin Anti-Xa Level ABG pH ABG pO2 ABG HCO3 ABG O2 Saturation ABG Base Excess ABG Hemoglobin Oxyhemoglobin Sodium Potassium Chloride Carbon Dioxide BUN Creatinine Glucose POC Glucose 150 H 123 H 155 H Hemoglobin A1c Calcium Phosphorus Magnesium AST Troponin T NT-Pro-B Natriuret Pep Albumin Triglycerides LDL Cholesterol Direct HDL Cholesterol PTH Intact Urine Creatinine Urine Total Protein 06/29/22 06/29/22 06/29/22 20:17 21:11 21:53 WBC RBC Hgb Hct Plt Count Lymph % (Auto) [place] % (Auto) Lymph # (Auto) [place] # (Auto) Seg Neutrophils % Seg Neuts % (Manual) Lymphocytes % (Manual) Seg Neutrophils # Seg Neutrophils # Man Lymphocytes # (Manual) PT INR APTT Heparin Anti-Xa Level ABG pH ABG pO2 ABG HCO3 ABG O2 Saturation ABG Base Excess ABG Hemoglobin Oxyhemoglobin Sodium 131 L Potassium 5.5 H D Chloride Carbon Dioxide 15 L BUN 56 H Creatinine 2.0 H Glucose 146 H POC Glucose 152 H 165 H Hemoglobin A1c Calcium Phosphorus 5.20 H Magnesium AST Troponin T NT-Pro-B Natriuret Pep Albumin Triglycerides LDL Cholesterol Direct HDL Cholesterol PTH Intact Urine Creatinine Urine Total Protein 06/29/22 06/30/22 06/30/22 23:07 00:18 00:58 WBC RBC Hgb Hct Plt Count Lymph % (Auto) [place] % (Auto) Lymph # (Auto) [place] # (Auto) Seg Neutrophils % Seg Neuts % (Manual) Lymphocytes % (Manual) Seg Neutrophils # Seg Neutrophils # Man Lymphocytes # (Manual) PT INR APTT Heparin Anti-Xa Level ABG pH ABG pO2 ABG HCO3 ABG O2 Saturation ABG Base Excess ABG Hemoglobin Oxyhemoglobin Sodium Potassium Chloride Carbon Dioxide BUN Creatinine Glucose POC Glucose 163 H 178 H 189 H Hemoglobin A1c Calcium Phosphorus Magnesium AST Troponin T NT-Pro-B Natriuret Pep Albumin Triglycerides LDL Cholesterol Direct HDL Cholesterol PTH Intact Urine Creatinine Urine Total Protein 06/30/22 06/30/22 06/30/22 01:57 02:59 03:53 WBC RBC Hgb Hct Plt Count Lymph % (Auto) [place] % (Auto) Lymph # (Auto) [place] # (Auto) Seg Neutrophils % Seg Neuts % (Manual) Lymphocytes % (Manual) Seg Neutrophils # Seg Neutrophils # Man Lymphocytes # (Manual) PT INR APTT Heparin Anti-Xa Level ABG pH ABG pO2 ABG HCO3 ABG O2 Saturation ABG Base Excess ABG Hemoglobin Oxyhemoglobin Sodium Potassium Chloride Carbon Dioxide BUN Creatinine Glucose POC Glucose 150 H 147 H 122 H Hemoglobin A1c Calcium Phosphorus Magnesium AST Troponin T NT-Pro-B Natriuret Pep Albumin Triglycerides LDL Cholesterol Direct HDL Cholesterol PTH Intact Urine Creatinine Urine Total Protein 06/30/22 06/30/22 06/30/22 04:56 05:25 05:52 WBC RBC Hgb Hct Plt Count Lymph % (Auto) [place] % (Auto) Lymph # (Auto) [place] # (Auto) Seg Neutrophils % Seg Neuts % (Manual) Lymphocytes % (Manual) Seg Neutrophils # Seg Neutrophils # Man Lymphocytes # (Manual) PT INR APTT Heparin Anti-Xa Level ABG pH ABG pO2 ABG HCO3 ABG O2 Saturation ABG Base Excess ABG Hemoglobin Oxyhemoglobin Sodium 132 L Potassium Chloride Carbon Dioxide 15 L BUN 53 H Creatinine 1.7 H Glucose 137 H POC Glucose 110 H 150 H Hemoglobin A1c Calcium Phosphorus Magnesium AST Troponin T NT-Pro-B Natriuret Pep Albumin Triglycerides LDL Cholesterol Direct HDL Cholesterol PTH Intact Urine Creatinine Urine Total Protein 06/30/22 06/30/22 06/30/22 07:25 08:20 09:20 WBC RBC Hgb Hct Plt Count Lymph % (Auto) [place] % (Auto) Lymph # (Auto) [place] # (Auto) Seg Neutrophils % Seg Neuts % (Manual) Lymphocytes % (Manual) Seg Neutrophils # Seg Neutrophils # Man Lymphocytes # (Manual) PT INR APTT Heparin Anti-Xa Level ABG pH ABG pO2 ABG HCO3 ABG O2 Saturation ABG Base Excess ABG Hemoglobin Oxyhemoglobin Sodium Potassium Chloride Carbon Dioxide BUN Creatinine Glucose POC Glucose 133 H 119 H 128 H Hemoglobin A1c Calcium Phosphorus Magnesium AST Troponin T NT-Pro-B Natriuret Pep Albumin Triglycerides LDL Cholesterol Direct HDL Cholesterol PTH Intact Urine Creatinine Urine Total Protein 06/30/22 06/30/22 06/30/22 10:21 10:59 11:25 WBC RBC Hgb Hct Plt Count Lymph % (Auto) [place] % (Auto) Lymph # (Auto) [place] # (Auto) Seg Neutrophils % Seg Neuts % (Manual) Lymphocytes % (Manual) Seg Neutrophils # Seg Neutrophils # Man Lymphocytes # (Manual) PT INR APTT Heparin Anti-Xa Level ABG pH ABG pO2 ABG HCO3 ABG O2 Saturation ABG Base Excess ABG Hemoglobin Oxyhemoglobin Sodium 132 L Potassium Chloride Carbon Dioxide 16 L BUN 49 H Creatinine 1.7 H Glucose 168 H POC Glucose 133 H 232 H Hemoglobin A1c Calcium 8.1 L Phosphorus Magnesium AST Troponin T NT-Pro-B Natriuret Pep Albumin Triglycerides LDL Cholesterol Direct HDL Cholesterol PTH Intact Urine Creatinine Urine Total Protein 06/30/22 06/30/22 07/01/22 16:15 21:30 05:10 WBC RBC Hgb Hct Plt Count Lymph % (Auto) [place] % (Auto) Lymph # (Auto) [place] # (Auto) Seg Neutrophils % Seg Neuts % (Manual) Lymphocytes % (Manual) Seg Neutrophils # Seg Neutrophils # Man Lymphocytes # (Manual) PT INR APTT Heparin Anti-Xa Level 0.24 L ABG pH ABG pO2 ABG HCO3 ABG O2 Saturation ABG Base Excess ABG Hemoglobin Oxyhemoglobin Sodium Potassium Chloride Carbon Dioxide BUN Creatinine Glucose POC Glucose 325 H 279 H Hemoglobin A1c Calcium Phosphorus Magnesium AST Troponin T NT-Pro-B Natriuret Pep Albumin Triglycerides LDL Cholesterol Direct HDL Cholesterol PTH Intact Urine Creatinine Urine Total Protein 07/01/22 07/01/22 07/01/22 05:10 07:38 09:13 WBC RBC Hgb Hct Plt Count Lymph % (Auto) [place] % (Auto) Lymph # (Auto) [place] # (Auto) Seg Neutrophils % Seg Neuts % (Manual) Lymphocytes % (Manual) Seg Neutrophils # Seg Neutrophils # Man Lymphocytes # (Manual) PT 15.9 H INR 1.14 H APTT Heparin Anti-Xa Level ABG pH ABG pO2 ABG HCO3 ABG O2 Saturation ABG Base Excess ABG Hemoglobin Oxyhemoglobin Sodium 132 L Potassium Chloride 97.8 L Carbon Dioxide 19 L BUN 34 H Creatinine 1.3 H Glucose 250 H POC Glucose 235 H Hemoglobin A1c Calcium Phosphorus Magnesium AST Troponin T NT-Pro-B Natriuret Pep Albumin Triglycerides LDL Cholesterol Direct HDL Cholesterol PTH Intact Urine Creatinine Urine Total Protein 07/01/22 07/01/22 07/01/22 12:03 13:42 16:32 WBC RBC Hgb Hct Plt Count Lymph % (Auto) [place] % (Auto) Lymph # (Auto) [place] # (Auto) Seg Neutrophils % Seg Neuts % (Manual) Lymphocytes % (Manual) Seg Neutrophils # Seg Neutrophils # Man Lymphocytes # (Manual) PT INR APTT Heparin Anti-Xa Level 0.25 L ABG pH ABG pO2 ABG HCO3 ABG O2 Saturation ABG Base Excess ABG Hemoglobin Oxyhemoglobin Sodium Potassium Chloride Carbon Dioxide BUN Creatinine Glucose POC Glucose 272 H 316 H Hemoglobin A1c Calcium Phosphorus Magnesium AST Troponin T NT-Pro-B Natriuret Pep Albumin Triglycerides LDL Cholesterol Direct HDL Cholesterol PTH Intact Urine Creatinine Urine Total Protein 07/01/22 07/01/22 07/02/22 21:21 23:14 07:41 WBC RBC Hgb Hct Plt Count Lymph % (Auto) [place] % (Auto) Lymph # (Auto) [place] # (Auto) Seg Neutrophils % Seg Neuts % (Manual) Lymphocytes % (Manual) Seg Neutrophils # Seg Neutrophils # Man Lymphocytes # (Manual) PT INR APTT Heparin Anti-Xa Level 0.27 L ABG pH ABG pO2 ABG HCO3 ABG O2 Saturation ABG Base Excess ABG Hemoglobin Oxyhemoglobin Sodium Potassium Chloride Carbon Dioxide BUN Creatinine Glucose POC Glucose 262 H 287 H Hemoglobin A1c Calcium Phosphorus Magnesium AST Troponin T NT-Pro-B Natriuret Pep Albumin Triglycerides LDL Cholesterol Direct HDL Cholesterol PTH Intact Urine Creatinine Urine Total Protein 07/02/22 07/02/22 07/02/22 08:12 08:12 20:28 WBC RBC Hgb 14.7 H Hct 46.3 H Plt Count 138 L Lymph % (Auto) [place] % (Auto) Lymph # (Auto) [place] # (Auto) Seg Neutrophils % Seg Neuts % (Manual) Lymphocytes % (Manual) Seg Neutrophils # Seg Neutrophils # Man Lymphocytes # (Manual) PT INR APTT Heparin Anti-Xa Level 0.21 L ABG pH ABG pO2 ABG HCO3 ABG O2 Saturation ABG Base Excess ABG Hemoglobin Oxyhemoglobin Sodium 129 L Potassium Chloride 95.7 L Carbon Dioxide 17 L BUN 24 H Creatinine Glucose 275 H POC Glucose Hemoglobin A1c Calcium Phosphorus 2.10 L D Magnesium AST Troponin T NT-Pro-B Natriuret Pep Albumin Triglycerides LDL Cholesterol Direct HDL Cholesterol PTH Intact Urine Creatinine Urine Total Protein 07/02/22 07/02/22 07/03/22 20:28 23:01 07:28 WBC RBC Hgb Hct Plt Count Lymph % (Auto) [place] % (Auto) Lymph # (Auto) [place] # (Auto) Seg Neutrophils % Seg Neuts % (Manual) Lymphocytes % (Manual) Seg Neutrophils # Seg Neutrophils # Man Lymphocytes # (Manual) PT 17.3 H INR 1.26 H APTT 24.1 L Heparin Anti-Xa Level ABG pH ABG pO2 ABG HCO3 ABG O2 Saturation ABG Base Excess ABG Hemoglobin Oxyhemoglobin Sodium Potassium Chloride Carbon Dioxide BUN Creatinine Glucose POC Glucose 340 H 261 H Hemoglobin A1c Calcium Phosphorus Magnesium AST Troponin T NT-Pro-B Natriuret Pep Albumin Triglycerides LDL Cholesterol Direct HDL Cholesterol PTH Intact Urine Creatinine Urine Total Protein 07/03/22 07/03/22 07/03/22 11:30 12:20 16:23 WBC RBC Hgb Hct Plt Count Lymph % (Auto) [place] % (Auto) Lymph # (Auto) [place] # (Auto) Seg Neutrophils % Seg Neuts % (Manual) Lymphocytes % (Manual) Seg Neutrophils # Seg Neutrophils # Man Lymphocytes # (Manual) PT INR APTT Heparin Anti-Xa Level ABG pH ABG pO2 ABG HCO3 ABG O2 Saturation ABG Base Excess ABG Hemoglobin Oxyhemoglobin Sodium 134 L Potassium Chloride Carbon Dioxide BUN 18 H Creatinine Glucose 271 H POC Glucose 292 H 255 H Hemoglobin A1c Calcium Phosphorus Magnesium AST Troponin T NT-Pro-B Natriuret Pep Albumin Triglycerides LDL Cholesterol Direct HDL Cholesterol PTH Intact Urine Creatinine Urine Total Protein 07/03/22 07/04/22 07/04/22 22:01 05:37 05:37 WBC RBC Hgb Hct Plt Count Lymph % (Auto) 8.4 L [place] % (Auto) 10.1 H Lymph # (Auto) 0.8 L [place] # (Auto) 1.0 H Seg Neutrophils % 80.6 H Seg Neuts % (Manual) Lymphocytes % (Manual) Seg Neutrophils # 8.0 H Seg Neutrophils # Man Lymphocytes # (Manual) PT INR APTT Heparin Anti-Xa Level ABG pH ABG pO2 ABG HCO3 ABG O2 Saturation ABG Base Excess ABG Hemoglobin Oxyhemoglobin Sodium Potassium Chloride Carbon Dioxide BUN Creatinine Glucose 217 H POC Glucose 281 H Hemoglobin A1c Calcium Phosphorus Magnesium AST Troponin T NT-Pro-B Natriuret Pep Albumin Triglycerides LDL Cholesterol Direct HDL Cholesterol PTH Intact Urine Creatinine Urine Total Protein 07/04/22 07/04/22 07/04/22 07:40 11:15 11:52 WBC RBC Hgb Hct Plt Count Lymph % (Auto) [place] % (Auto) Lymph # (Auto) [place] # (Auto) Seg Neutrophils % Seg Neuts % (Manual) Lymphocytes % (Manual) Seg Neutrophils # Seg Neutrophils # Man Lymphocytes # (Manual) PT INR APTT Heparin Anti-Xa Level ABG pH 7.303 L ABG pO2 64.6 L ABG HCO3 ABG O2 Saturation 92.9 L ABG Base Excess ABG Hemoglobin 11.9 L Oxyhemoglobin 90.6 L Sodium Potassium Chloride Carbon Dioxide BUN Creatinine Glucose POC Glucose 211 H 267 H Hemoglobin A1c Calcium Phosphorus Magnesium AST Troponin T NT-Pro-B Natriuret Pep Albumin Triglycerides LDL Cholesterol Direct HDL Cholesterol PTH Intact Urine Creatinine Urine Total Protein 07/04/22 07/04/22 07/05/22 16:51 22:03 07:48 WBC RBC Hgb Hct Plt Count Lymph % (Auto) [place] % (Auto) Lymph # (Auto) [place] # (Auto) Seg Neutrophils % Seg Neuts % (Manual) Lymphocytes % (Manual) Seg Neutrophils # Seg Neutrophils # Man Lymphocytes # (Manual) PT INR APTT Heparin Anti-Xa Level ABG pH ABG pO2 ABG HCO3 ABG O2 Saturation ABG Base Excess ABG Hemoglobin Oxyhemoglobin Sodium Potassium Chloride Carbon Dioxide BUN Creatinine Glucose POC Glucose 273 H 202 H 223 H Hemoglobin A1c Calcium Phosphorus Magnesium AST Troponin T NT-Pro-B Natriuret Pep Albumin Triglycerides LDL Cholesterol Direct HDL Cholesterol PTH Intact Urine Creatinine Urine Total Protein 07/05/22 07/05/22 07/05/22 11:06 18:03 Unknown WBC 16.5 H RBC Hgb Hct Plt Count Lymph % (Auto) [place] % (Auto) Lymph # (Auto) [place] # (Auto) Seg Neutrophils % Seg Neuts % (Manual) 91.0 H Lymphocytes % (Manual) 1.0 L Seg Neutrophils # Seg Neutrophils # Man 15.0 H Lymphocytes # (Manual) 0.2 L PT INR APTT Heparin Anti-Xa Level ABG pH 7.313 L ABG pO2 102.1 H ABG HCO3 27.2 H ABG O2 Saturation ABG Base Excess ABG Hemoglobin 10.6 L Oxyhemoglobin Sodium Potassium Chloride Carbon Dioxide BUN Creatinine Glucose POC Glucose 219 H Hemoglobin A1c Calcium Phosphorus Magnesium AST Troponin T NT-Pro-B Natriuret Pep Albumin Triglycerides LDL Cholesterol Direct HDL Cholesterol PTH Intact Urine Creatinine Urine Total Protein 07/05/22 07/06/22 07/06/22 Unknown 00:30 03:33 WBC RBC Hgb Hct Plt Count Lymph % (Auto) [place] % (Auto) Lymph # (Auto) [place] # (Auto) Seg Neutrophils % Seg Neuts % (Manual) Lymphocytes % (Manual) Seg Neutrophils # Seg Neutrophils # Man Lymphocytes # (Manual) PT INR APTT Heparin Anti-Xa Level ABG pH ABG pO2 142.7 H ABG HCO3 28.9 H ABG O2 Saturation ABG Base Excess 3.6 H ABG Hemoglobin 10.5 L Oxyhemoglobin Sodium Potassium Chloride Carbon Dioxide BUN Creatinine Glucose 290 H POC Glucose 199 H Hemoglobin A1c Calcium Phosphorus Magnesium AST Troponin T NT-Pro-B Natriuret Pep Albumin Triglycerides LDL Cholesterol Direct HDL Cholesterol PTH Intact Urine Creatinine Urine Total Protein 07/06/22 07/06/22 07/06/22 04:00 04:00 06:00 WBC 11.4 H RBC 3.55 L Hgb Hct Plt Count Lymph % (Auto) [place] % (Auto) Lymph # (Auto) [place] # (Auto) Seg Neutrophils % Seg Neuts % (Manual) Lymphocytes % (Manual) Seg Neutrophils # Seg Neutrophils # Man Lymphocytes # (Manual) PT INR APTT Heparin Anti-Xa Level ABG pH ABG pO2 ABG HCO3 ABG O2 Saturation ABG Base Excess ABG Hemoglobin Oxyhemoglobin Sodium Potassium Chloride Carbon Dioxide BUN 22 H Creatinine 1.3 H Glucose 173 H POC Glucose 180 H Hemoglobin A1c Calcium Phosphorus Magnesium AST Troponin T NT-Pro-B Natriuret Pep Albumin Triglycerides LDL Cholesterol Direct HDL Cholesterol PTH Intact Urine Creatinine Urine Total Protein 07/06/22 07/06/22 07/06/22 09:19 12:39 17:30 WBC RBC Hgb Hct Plt Count Lymph % (Auto) [place] % (Auto) Lymph # (Auto) [place] # (Auto) Seg Neutrophils % Seg Neuts % (Manual) Lymphocytes % (Manual) Seg Neutrophils # Seg Neutrophils # Man Lymphocytes # (Manual) PT INR APTT Heparin Anti-Xa Level ABG pH ABG pO2 ABG HCO3 ABG O2 Saturation ABG Base Excess ABG Hemoglobin Oxyhemoglobin Sodium Potassium Chloride Carbon Dioxide BUN Creatinine Glucose POC Glucose 198 H 179 H 106 H Hemoglobin A1c Calcium Phosphorus Magnesium AST Troponin T NT-Pro-B Natriuret Pep Albumin Triglycerides LDL Cholesterol Direct HDL Cholesterol PTH Intact Urine Creatinine Urine Total Protein 07/06/22 07/06/22 07/07/22 20:59 23:30 03:02 WBC RBC Hgb Hct Plt Count Lymph % (Auto) [place] % (Auto) Lymph # (Auto) [place] # (Auto) Seg Neutrophils % Seg Neuts % (Manual) Lymphocytes % (Manual) Seg Neutrophils # Seg Neutrophils # Man Lymphocytes # (Manual) PT INR APTT Heparin Anti-Xa Level ABG pH ABG pO2 ABG HCO3 ABG O2 Saturation ABG Base Excess ABG Hemoglobin Oxyhemoglobin Sodium Potassium Chloride Carbon Dioxide BUN Creatinine Glucose POC Glucose 152 H 126 H 135 H Hemoglobin A1c Calcium Phosphorus Magnesium AST Troponin T NT-Pro-B Natriuret Pep Albumin Triglycerides LDL Cholesterol Direct HDL Cholesterol PTH Intact Urine Creatinine Urine Total Protein 07/07/22 07/07/22 07/07/22 04:13 05:35 05:35 WBC RBC 3.13 L Hgb 9.7 L Hct 28.7 L Plt Count Lymph % (Auto) [place] % (Auto) Lymph # (Auto) [place] # (Auto) Seg Neutrophils % Seg Neuts % (Manual) Lymphocytes % (Manual) Seg Neutrophils # Seg Neutrophils # Man Lymphocytes # (Manual) PT INR APTT Heparin Anti-Xa Level ABG pH 7.473 H ABG pO2 93.4 H ABG HCO3 29.9 H ABG O2 Saturation ABG Base Excess 5.8 H ABG Hemoglobin 10.0 L Oxyhemoglobin Sodium Potassium Chloride Carbon Dioxide 31 H BUN 21 H Creatinine Glucose POC Glucose Hemoglobin A1c Calcium Phosphorus Magnesium AST Troponin T NT-Pro-B Natriuret Pep Albumin Triglycerides LDL Cholesterol Direct HDL Cholesterol PTH Intact Urine Creatinine Urine Total Protein 07/07/22 07/07/22 07/07/22 06:15 12:25 18:36 WBC RBC Hgb Hct Plt Count Lymph % (Auto) [place] % (Auto) Lymph # (Auto) [place] # (Auto) Seg Neutrophils % Seg Neuts % (Manual) Lymphocytes % (Manual) Seg Neutrophils # Seg Neutrophils # Man Lymphocytes # (Manual) PT INR APTT Heparin Anti-Xa Level ABG pH ABG pO2 ABG HCO3 ABG O2 Saturation ABG Base Excess ABG Hemoglobin Oxyhemoglobin Sodium Potassium Chloride Carbon Dioxide BUN Creatinine Glucose POC Glucose 67 L 111 H 167 H Hemoglobin A1c Calcium Phosphorus Magnesium AST Troponin T NT-Pro-B Natriuret Pep Albumin Triglycerides LDL Cholesterol Direct HDL Cholesterol PTH Intact Urine Creatinine Urine Total Protein 07/08/22 07/08/22 07/08/22 04:00 04:15 05:00 WBC RBC 3.30 L Hgb 9.9 L Hct Plt Count Lymph % (Auto) [place] % (Auto) Lymph # (Auto) [place] # (Auto) Seg Neutrophils % Seg Neuts % (Manual) Lymphocytes % (Manual) Seg Neutrophils # Seg Neutrophils # Man Lymphocytes # (Manual) PT INR APTT Heparin Anti-Xa Level ABG pH ABG pO2 63.4 L ABG HCO3 29.2 H ABG O2 Saturation 94.0 L ABG Base Excess 4.2 H ABG Hemoglobin 10.0 L Oxyhemoglobin 91.8 L Sodium Potassium Chloride Carbon Dioxide BUN 26 H Creatinine Glucose 276 H POC Glucose Hemoglobin A1c Calcium Phosphorus Magnesium AST Troponin T NT-Pro-B Natriuret Pep Albumin Triglycerides LDL Cholesterol Direct HDL Cholesterol PTH Intact Urine Creatinine Urine Total Protein Allied health notes reviewed: RT
--- NOTE | 2022-07-08 18:18 | Progress Note ---
Assessment and Plan - Patient Problems (1) Cardiopulmonary arrest Current Visit: Yes Status: Acute Plan to address problem: Patient was on patient monitor at the time of her respiratory decompensation, no primary cardiac arrhythmias were noted. With history of recent extensive venous thromboembolism, most likely etiology to pursue is acute pulmonary embolism, in addition to other pulmonary etiologies such as sleep apnea, pulmonary atelectasis. Unlikely primary cardiac event. Defer to internal medicine and pulmonary for work-up of pulmonary causes of acute respiratory failure. Echocardiogram is pending for left ventricular function and right ventricular function assessment. (2) Paroxysmal atrial fibrillation Current Visit: Yes Status: Acute Plan to address problem: Patient has paroxysmal atrial fibrillation, with underlying right bundle branch block, findings are chronic. She is on long-term anticoagulation with Eliquis for her venous thromboembolism. Patient is currently in a stable sinus rhythm. We will direct further treatment for atrial fibrillation suppression as needed. Subjective Date of service: 07/08/22 Principal diagnosis: AHRF; DKA; Hyperkalemia; COPD; ? cellulitis; PVD; STEFFANIE; Morbid obesity; ?JACKLYN Interval history: Patient is on the vent, no acute distress. On patient monitor there is a stable sinus rhythm, blood pressure is stable. Objective Vital Signs Temp Pulse Pulse Resp BP Pulse Ox 07/08/22 16:30 79 26 H 131/63 96 07/08/22 16:24 99.8 F H 07/08/22 16:00 83 83 28 H 131/63 96 07/08/22 15:00 81 28 H 133/65 95 07/08/22 14:00 83 27 H 124/64 95 07/08/22 13:00 82 27 H 128/63 94 07/08/22 12:12 100.0 F H 07/08/22 12:00 77 87 24 126/62 93 07/08/22 11:00 79 27 H 131/68 94 07/08/22 10:00 83 29 H 107/71 94 07/08/22 09:00 79 26 H 107/71 94 07/08/22 08:50 77 25 H 119/62 94 07/08/22 08:00 73 73 22 119/62 94 07/08/22 07:26 99.5 F 07/08/22 07:00 77 22 123/65 93 07/08/22 06:00 80 25 H 96/49 94 07/08/22 05:00 77 24 96/49 92 07/08/22 04:27 100.6 F H 07/08/22 04:20 75 102/52 92 07/08/22 04:00 82 76 25 H 110/59 90 07/08/22 03:00 76 23 98/53 92 07/08/22 02:00 73 21 97/52 92 07/08/22 01:00 77 23 98/53 92 07/08/22 00:20 100.6 F H 07/08/22 00:12 83 84/48 95 07/08/22 00:00 86 81 23 93/45 95 07/07/22 23:00 85 24 80/41 94 07/07/22 22:00 83 25 H 125/70 95 07/07/22 21:00 88 26 H 125/70 94 07/07/22 20:33 81 114/55 95 07/07/22 20:12 97.9 F 07/07/22 20:00 79 82 24 110/58 94 07/07/22 19:00 81 24 105/59 94 - Physical Examination General: Other (Awake, on the vent) HEENT: Positive: PERRL Neck: Positive: neck supple Cardiac: Positive: Reg Rate and Rhythm Lungs: Positive: Decreased Breath Sounds Neuro: Positive: Grossly Intact Abdomen: Positive: Soft Skin: Positive: Clear Extremities: Absent: edema - Labs and Meds CBC 07/08/22 Range/Units 05:00 WBC 7.2 (4.5-11.0) K/mm3 RBC 3.30 L (3.65-5.03) M/mm3 Hgb 9.9 L (10.1-14.3) gm/dl Hct 31.0 (30.3-42.9) % Plt Count 189 (140-440) K/mm3 Comprehensive Metabolic Panel 07/08/22 07/08/22 Range/Units 04:00 05:00 Sodium 141 (137-145) mmol/L Potassium 4.7 D (3.6-5.0) mmol/L Chloride 103.7 (98-107) mmol/L Carbon Dioxide 28 (22-30) mmol/L BUN 26 H (7-17) mg/dL Creatinine 1.1 1.1 (0.6-1.2) mg/dL Glucose 276 H (65-100) mg/dL Calcium 8.9 (8.4-10.2) mg/dL - Allied health notes Allied health notes reviewed: RT
[2022-07-08] MEDS ORDERED: FUROSEMIDE 40 MG/4 ML INJ IV ONE (18:44)
[2022-07-08] MEDS ORDERED: VALPROATE SODIUM 500 MG in SODIUM CHLORIDE 0.9% 100 ML IV SCH (22:00)
[2022-07-08] MEDS ORDERED: INSULIN GLARGINE 100 UNITS/ML SUB-Q SCH (22:00)
[2022-07-08] MEDS: MIRTAZAPINE 15 MG SOLUTAB PO SCH (22:15)
[2022-07-09] MEDS: VALPROIC ACID 250 MG/5 ML ORAL LIQD FEEDTUBE SCH ×4 (00:50→18:07)
[2022-07-09] MEDS: INSULIN LISPRO 100 UNIT/ML SUB-Q SCH ×5 (01:21→22:00)
--- NOTE | 2022-07-09 03:02 | XRay Report ---
CHEST 1 VIEW 07/09/2022 1:42 AM INDICATION / CLINICAL INFORMATION: follow up respiratory failure. COMPARISON: chest radiograph performed yesterday FINDINGS: SUPPORT DEVICES: The support lines and tubes are in stable and appropriate position. HEART / MEDIASTINUM: Stable cardiomediastinal silhouette for AP technique. LUNGS / PLEURA: No pneumothorax. Stable pulmonary findings without interval detrimental change. ADDITIONAL FINDINGS: No significant additional findings. IMPRESSION: 1. Stable cardiopulmonary findings without pneumothorax or other interval detrimental change. 2. Stable satisfactory endotracheal tube, nasogastric tube and right upper extremity PICC position. Signer Name: Josh Menjivar MD Signed: 07/09/2022 2:57 AM Workstation Name: [employer]
[2022-07-09 05:17] LABS: Hematocrit 30.7 % (30.3-42.9); Hemoglobin 9.9 gm/dl (10.1-14.3); Mean Corpuscular HGB Conc 32 % (30-34); Mean Corpuscular Volume 93 fl (79-97); Platelet Count 187 K/mm3 (140-440); Red Cell Distribution Width 15.2 % (13.2-15.2)
[2022-07-09 05:27] LABS: Calcium 9.3 mg/dL (8.4-10.2)
--- NOTE | 2022-07-09 08:06 | Vascular Lab Report ---
DUPLEX DOPPLER LOWER EXTREMITY VEINS, BILATERAL INDICATION: dvt and ivc filter s/p thrombectomy. TECHNIQUE: Duplex doppler imaging was performed through the veins of both lower extremities using ve nous compression and other maneuvers. COMPARISON: No relevant prior imaging study available. FINDINGS: Right Common femoral vein: Negative. Right Superficial femoral vein: Negative. Right Popliteal vein: Negative. Right Calf veins: Not visualized. Left Common femoral vein: Negative. Left Superficial femoral vein: Negative. Left Popliteal vein: Negative. Left Calf veins: Not visualized. Additional findings: Positive for acute appearing superficial venous thrombosis in the bilateral grea ter saphenous veins. IMPRESSION: The technologist notes a technically difficult study. The bilateral calf veins could not be visualiz ed due to patient body habitus and positioning. No DVT is appreciated in the femoral or popliteal vei ns bilaterally. Positive for superficial venous thrombosis in the bilateral greater saphenous veins. Signer Name: Christiano George Jr, MD Signed: 07/09/2022 8:02 AM Workstation Name: [id number]
--- NOTE | 2022-07-09 08:57 | Progress Note ---
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 Non-insulin dependent type II diabetes mellitus with hyperglycemia Hypertension Hyperlipidemia Hypothyroidism H/O COPD Bipolar Disorder Tobacco use disorder/Nicotine dependence Morbid obesity Hypernatremia SBT, get weaning parameters. If appropriate and acceptable, will plan to liberate from MVS Will need BIPAP support at night, she probably has undiagnosed and untreated JACKLYN Intermittent diuretic therapy, keep negative balance as tolerated by renal function and hemodynamics Treat hypernatremia- increase free water flushes. Adjust insulin therapy for better glycemic control -Titrate supplemental oxygen to keep SpO2 89-92% -VAP bundle addressed, aspiration precautions HOB>30 -Stress ulcer prophylaxis- Famotidine -VTE prophylaxis-on therapeutic Apixaban -Titrate Propofol to keep RASS 0 to -1 -Prn Fentanyl for analgesia, titrate to CPOT >3 -Daily SBT and SAT trials as tolerated, daily assessment for readiness to wean -ABG and CXR as clinically indicated -Enteric nutrition support, tube feeding -Mobility, off loading and frequent turning per facility protocol to prevent pressure ulcers -Trend temperature curve and WCC -Maintain euglycemia. Keep blood glucose 140-180mg/dL while critically ill. Avoid hypoglycemia -Monitor hemodynamics closely -Supportive transfusions as clinically indicated to keep HgB >7g/dL -Continue Nicotine patch and nicotine withdrawal precautions -Avoid nephrotxins, recent recovery from STEFFANIE/ATN -PICC for vasoactive drug administration Discussed with respiratory care, nursing care CONDITION: CRITICAL PROGNOSIS: GUARDED CODE STATUS: FULL CODE The high probability of a clinically significant, sudden or life threatening deterioration of the [multiple] system(s) required my full and direct attention, intervention and personal management. The aggregate critical care time was [35] minutes. This time is in addition to time spent performing reported procedures but includes the following: [x] Data Review and interpretation [x] Patient assessment and monitoring of vital signs [x] Documentation [x] Medication orders and management Subjective Date of service: 07/09/22 Principal diagnosis: AHRF; DKA; Hyperkalemia; COPD; ? cellulitis; PVD; STEFFANIE; Morbid obesity; ?JACKLYN Interval history: Patient is seen today for: Acute hypoxemic respiratory failure; DKA; Hyperkalemia; COPD; Possible cellulitis; PVD; STEFFANIE; Morbid obesity Seen and examined at bedside; 24hour events reviewed; nursing and respiratory care staff consulted; no adverse overnight events reported to me; s/p cardiac ar rest ,asystole with ROSC. Intubated on MVS Obeying some simple commands Objective Vital Signs - 12hr 07/08/22 07/08/22 07/08/22 21:00 22:00 22:48 Temperature Pulse Rate 81 75 75 Pulse Rate [ From Monitor] Respiratory 33 H 23 21 Rate Blood Pressure 128/71 125/70 125/70 O2 Sat by Pulse 87 95 96 Oximetry 07/08/22 07/08/22 07/09/22 23:00 23:50 00:00 Temperature Pulse Rate 73 76 77 Pulse Rate [ 92 H From Monitor] Respiratory 19 10 L 20 Rate Blood Pressure 114/69 114/69 133/68 O2 Sat by Pulse 95 95 96 Oximetry 07/09/22 07/09/22 07/09/22 00:41 01:00 02:00 Temperature 99.2 F Pulse Rate 71 72 Pulse Rate [ From Monitor] Respiratory 16 19 Rate Blood Pressure 133/68 139/68 O2 Sat by Pulse 96 95 Oximetry 07/09/22 07/09/22 07/09/22 03:00 03:35 04:00 Temperature 99.4 F Pulse Rate 74 70 Pulse Rate [ 98 H From Monitor] Respiratory 22 19 Rate Blood Pressure 139/68 153/74 O2 Sat by Pulse 94 95 Oximetry 07/09/22 07/09/22 07/09/22 04:25 05:00 06:00 Temperature Pulse Rate 71 67 70 Pulse Rate [ From Monitor] Respiratory 11 L 14 19 Rate Blood Pressure 139/76 127/69 139/69 O2 Sat by Pulse 95 95 95 Oximetry 07/09/22 07/09/22 07/09/22 07:00 07:25 08:00 Temperature 99.5 F Pulse Rate 59 L 66 Pulse Rate [ From Monitor] Respiratory 13 19 Rate Blood Pressure 139/69 146/69 O2 Sat by Pulse 94 96 Oximetry Constitutional: no acute distress, other (orally intubated) Eyes: non-icteric ENT: oropharynx moist Neck: supple, no lymphadenopathy, no JVD, other (large circumference) Effort: mildly labored Ascultation: Bilateral: clear, diminished breath sounds Percussion: Bilateral: not dull Cardiovascular: regular rate and rhythm, other (S1S2) Gastrointestinal: normoactive bowel sounds, non-tender, tender, non-distended Integumentary: rash (shins), other (erythema to shins) Extremities: no cyanosis, pink and warm, no ischemia or petechiae, edema (trace to 1+) Neurologic: non-focal exam (grossly), pupils equal and round Psychiatric: mood appropriate, affect normal CBC and BMP: 07/10/22 04:21 07/11/22 04:00 ABG, PT/INR, D-dimer: ABG ABG pH 7.423 pH Units (7.350-7.450) 07/08/22 04:15 ABG pCO2 45.8 mm Hg 07/08/22 04:15 ABG pO2 63.4 mm Hg (80.0-90.0) L 07/08/22 04:15 ABG O2 Saturation 94.0 % (95.0-99.0) L 07/08/22 04:15 PT/INR, D-dimer PT 17.3 Sec. (12.2-14.9) H 07/02/22 20:28 INR 1.26 (0.87-1.13) H 07/02/22 20:28 Abnormal lab findings: Abnormal Labs 06/27/22 06/27/22 06/27/22 20:48 20:48 23:56 WBC 18.7 H RBC Hgb 15.1 H Hct 47.1 H Plt Count Lymph % (Auto) 6.[address] [place] % (Auto) Lymph # (Auto) [place] # (Auto) 0.9 H Seg Neutrophils % 88.6 H Seg Neuts % (Manual) Lymphocytes % (Manual) Seg Neutrophils # 16.5 H Seg Neutrophils # Man Lymphocytes # (Manual) PT INR APTT Heparin Anti-Xa Level ABG pH ABG pO2 ABG HCO3 ABG O2 Saturation ABG Base Excess ABG Hemoglobin Oxyhemoglobin Sodium 123 L 121 L Potassium 6.9 H* 6.4 H* Chloride 82.4 L 79.7 L Carbon Dioxide 7 L* 8 L* BUN 50 H 54 H Creatinine 2.2 H 2.5 H Glucose 578 H* 562 H* POC Glucose Hemoglobin A1c Calcium Phosphorus 10.40 H Magnesium 2.70 H 2.60 H AST 50 H Troponin T 0.080 H NT-Pro-B Natriuret Pep 4137 H Albumin 3.1 L Triglycerides 349 H LDL Cholesterol Direct 37 L HDL Cholesterol 38 L PTH Intact Urine Creatinine Urine Total Protein 06/28/22 06/28/22 06/28/22 01:45 03:17 03:35 WBC RBC Hgb Hct Plt Count Lymph % (Auto) [place] % (Auto) Lymph # (Auto) [place] # (Auto) Seg Neutrophils % Seg Neuts % (Manual) Lymphocytes % (Manual) Seg Neutrophils # Seg Neutrophils # Man Lymphocytes # (Manual) PT INR APTT Heparin Anti-Xa Level ABG pH ABG pO2 ABG HCO3 ABG O2 Saturation ABG Base Excess ABG Hemoglobin Oxyhemoglobin Sodium 120 L 121 L Potassium 6.2 H* 5.4 H Chloride 79.1 L 84.7 L Carbon Dioxide 7 L* 7 L* BUN 55 H 57 H Creatinine 2.6 H 2.6 H Glucose 551 H* 486 H POC Glucose 568 H Hemoglobin A1c Calcium 8.1 L 7.7 L Phosphorus Magnesium AST Troponin T NT-Pro-B Natriuret Pep Albumin Triglycerides LDL Cholesterol Direct HDL Cholesterol PTH Intact Urine Creatinine Urine Total Protein 06/28/22 06/28/22 06/28/22 03:35 04:05 05:13 WBC RBC Hgb Hct Plt Count Lymph % (Auto) [place] % (Auto) Lymph # (Auto) [place] # (Auto) Seg Neutrophils % Seg Neuts % (Manual) Lymphocytes % (Manual) Seg Neutrophils # Seg Neutrophils # Man Lymphocytes # (Manual) PT INR APTT Heparin Anti-Xa Level ABG pH ABG pO2 ABG HCO3 ABG O2 Saturation ABG Base Excess ABG Hemoglobin Oxyhemoglobin Sodium Potassium Chloride Carbon Dioxide BUN Creatinine Glucose POC Glucose 508 H 443 H Hemoglobin A1c Calcium Phosphorus 9.20 H Magnesium AST Troponin T NT-Pro-B Natriuret Pep Albumin Triglycerides LDL Cholesterol Direct HDL Cholesterol PTH Intact Urine Creatinine Urine Total Protein 06/28/22 06/28/22 06/28/22 05:40 06:30 07:39 WBC RBC Hgb Hct Plt Count Lymph % (Auto) [place] % (Auto) Lymph # (Auto) [place] # (Auto) Seg Neutrophils % Seg Neuts % (Manual) Lymphocytes % (Manual) Seg Neutrophils # Seg Neutrophils # Man Lymphocytes # (Manual) PT INR APTT Heparin Anti-Xa Level ABG pH ABG pO2 ABG HCO3 ABG O2 Saturation ABG Base Excess ABG Hemoglobin Oxyhemoglobin Sodium 124 L Potassium 5.1 H Chloride 86.5 L Carbon Dioxide 13 L BUN 59 H Creatinine 2.6 H Glucose 396 H POC Glucose 419 H 377 H Hemoglobin A1c Calcium 8.0 L Phosphorus Magnesium AST Troponin T NT-Pro-B Natriuret Pep Albumin Triglycerides LDL Cholesterol Direct HDL Cholesterol PTH Intact Urine Creatinine Urine Total Protein 06/28/22 06/28/22 06/28/22 08:10 08:18 09:32 WBC RBC Hgb Hct Plt Count Lymph % (Auto) [facility] % (Auto) Lymph # (Auto) [facility] # (Auto) Seg Neutrophils % Seg Neuts % (Manual) Lymphocytes % (Manual) Seg Neutrophils # Seg Neutrophils # Man Lymphocytes # (Manual) PT INR APTT Heparin Anti-Xa Level ABG pH ABG pO2 ABG HCO3 ABG O2 Saturation ABG Base Excess ABG Hemoglobin Oxyhemoglobin Sodium Potassium Chloride Carbon Dioxide BUN Creatinine Glucose POC Glucose 390 H 347 H Hemoglobin A1c Calcium Phosphorus Magnesium AST Troponin T NT-Pro-B Natriuret Pep Albumin Triglycerides LDL Cholesterol Direct HDL Cholesterol PTH Intact Urine Creatinine 85.4 H Urine Total Protein 49 H 06/28/22 06/28/22 06/28/22 10:46 11:40 12:40 WBC RBC Hgb Hct Plt Count Lymph % (Auto) [facility] % (Auto) Lymph # (Auto) [facility] # (Auto) Seg Neutrophils % Seg Neuts % (Manual) Lymphocytes % (Manual) Seg Neutrophils # Seg Neutrophils # Man Lymphocytes # (Manual) PT INR APTT Heparin Anti-Xa Level ABG pH ABG pO2 ABG HCO3 ABG O2 Saturation ABG Base Excess ABG Hemoglobin Oxyhemoglobin Sodium Potassium Chloride Carbon Dioxide BUN Creatinine Glucose POC Glucose 313 H 274 H 258 H Hemoglobin A1c Calcium Phosphorus Magnesium AST Troponin T NT-Pro-B Natriuret Pep Albumin Triglycerides LDL Cholesterol Direct HDL Cholesterol PTH Intact Urine Creatinine Urine Total Protein 06/28/22 06/28/22 06/28/22 13:38 14:13 14:13 WBC 19.7 H RBC 5.33 H Hgb 16.2 H Hct 49.4 H Plt Count Lymph % (Auto) [facility] % (Auto) Lymph # (Auto) [facility] # (Auto) Seg Neutrophils % Seg Neuts % (Manual) Lymphocytes % (Manual) Seg Neutrophils # Seg Neutrophils # Man Lymphocytes # (Manual) PT INR APTT Heparin Anti-Xa Level ABG pH ABG pO2 ABG HCO3 ABG O2 Saturation ABG Base Excess ABG Hemoglobin Oxyhemoglobin Sodium 125 L Potassium 5.4 H Chloride 87.6 L Carbon Dioxide 18 L BUN 58 H Creatinine 2.5 H Glucose 199 H POC Glucose 205 H Hemoglobin A1c Calcium Phosphorus 6.90 H D Magnesium AST Troponin T NT-Pro-B Natriuret Pep Albumin Triglycerides LDL Cholesterol Direct HDL Cholesterol PTH Intact Urine Creatinine Urine Total Protein 06/28/22 06/28/22 06/28/22 14:56 15:07 15:07 WBC RBC Hgb 15.5 H Hct 46.8 H Plt Count Lymph % (Auto) [facility] % (Auto) Lymph # (Auto) [facility] # (Auto) Seg Neutrophils % Seg Neuts % (Manual) Lymphocytes % (Manual) Seg Neutrophils # Seg Neutrophils # Man Lymphocytes # (Manual) PT INR APTT Heparin Anti-Xa Level ABG pH ABG pO2 ABG HCO3 ABG O2 Saturation ABG Base Excess ABG Hemoglobin Oxyhemoglobin Sodium 128 L Potassium 5.3 H Chloride 94.0 L Carbon Dioxide 14 L BUN 59 H Creatinine 2.4 H Glucose 183 H POC Glucose 194 H Hemoglobin A1c Calcium 7.8 L Phosphorus Magnesium AST Troponin T NT-Pro-B Natriuret Pep Albumin Triglycerides LDL Cholesterol Direct HDL Cholesterol PTH Intact Urine Creatinine Urine Total Protein 06/28/22 06/28/22 06/28/22 15:07 15:54 17:10 WBC RBC Hgb Hct Plt Count Lymph % (Auto) [facility] % (Auto) Lymph # (Auto) [facility] # (Auto) Seg Neutrophils % Seg Neuts % (Manual) Lymphocytes % (Manual) Seg Neutrophils # Seg Neutrophils # Man Lymphocytes # (Manual) PT 19.6 H INR 1.47 H APTT Heparin Anti-Xa Level ABG pH ABG pO2 ABG HCO3 ABG O2 Saturation ABG Base Excess ABG Hemoglobin Oxyhemoglobin Sodium Potassium Chloride Carbon Dioxide BUN Creatinine Glucose POC Glucose 189 H 216 H Hemoglobin A1c Calcium Phosphorus Magnesium AST Troponin T NT-Pro-B Natriuret Pep Albumin Triglycerides LDL Cholesterol Direct HDL Cholesterol PTH Intact Urine Creatinine Urine Total Protein 06/28/22 06/28/22 06/28/22 17:59 18:54 19:49 WBC RBC Hgb Hct Plt Count Lymph % (Auto) [facility] % (Auto) Lymph # (Auto) [facility] # (Auto) Seg Neutrophils % Seg Neuts % (Manual) Lymphocytes % (Manual) Seg Neutrophils # Seg Neutrophils # Man Lymphocytes # (Manual) PT INR APTT Heparin Anti-Xa Level ABG pH ABG pO2 ABG HCO3 ABG O2 Saturation ABG Base Excess ABG Hemoglobin Oxyhemoglobin Sodium Potassium Chloride Carbon Dioxide BUN Creatinine Glucose POC Glucose 195 H 178 H 166 H Hemoglobin A1c Calcium Phosphorus Magnesium AST Troponin T NT-Pro-B Natriuret Pep Albumin Triglycerides LDL Cholesterol Direct HDL Cholesterol PTH Intact Urine Creatinine Urine Total Protein 06/28/22 06/28/22 06/28/22 20:31 20:31 20:31 WBC RBC Hgb Hct Plt Count Lymph % (Auto) [facility] % (Auto) Lymph # (Auto) [facility] # (Auto) Seg Neutrophils % Seg Neuts % (Manual) Lymphocytes % (Manual) Seg Neutrophils # Seg Neutrophils # Man Lymphocytes # (Manual) PT INR APTT Heparin Anti-Xa Level 0.19 L ABG pH ABG pO2 ABG HCO3 ABG O2 Saturation ABG Base Excess ABG Hemoglobin Oxyhemoglobin Sodium 129 L Potassium 5.1 H Chloride 95.6 L Carbon Dioxide 15 L BUN 59 H Creatinine 2.4 H Glucose 145 H POC Glucose Hemoglobin A1c 9.7 H Calcium 8.0 L Phosphorus 6.40 H Magnesium AST Troponin T NT-Pro-B Natriuret Pep Albumin Triglycerides LDL Cholesterol Direct HDL Cholesterol PTH Intact Urine Creatinine Urine Total Protein 06/28/22 06/28/22 06/28/22 21:27 22:22 23:36 WBC RBC Hgb Hct Plt Count Lymph % (Auto) [facility] % (Auto) Lymph # (Auto) [facility] # (Auto) Seg Neutrophils % Seg Neuts % (Manual) Lymphocytes % (Manual) Seg Neutrophils # Seg Neutrophils # Man Lymphocytes # (Manual) PT INR APTT Heparin Anti-Xa Level ABG pH ABG pO2 ABG HCO3 ABG O2 Saturation ABG Base Excess ABG Hemoglobin Oxyhemoglobin Sodium Potassium Chloride Carbon Dioxide BUN Creatinine Glucose POC Glucose 131 H 148 H 146 H Hemoglobin A1c Calcium Phosphorus Magnesium AST Troponin T NT-Pro-B Natriuret Pep Albumin Triglycerides LDL Cholesterol Direct HDL Cholesterol PTH Intact Urine Creatinine Urine Total Protein 06/29/22 06/29/22 06/29/22 00:21 01:27 02:54 WBC RBC Hgb Hct Plt Count Lymph % (Auto) [facility] % (Auto) Lymph # (Auto) [facility] # (Auto) Seg Neutrophils % Seg Neuts % (Manual) Lymphocytes % (Manual) Seg Neutrophils # Seg Neutrophils # Man Lymphocytes # (Manual) PT INR APTT Heparin Anti-Xa Level ABG pH ABG pO2 ABG HCO3 ABG O2 Saturation ABG Base Excess ABG Hemoglobin Oxyhemoglobin Sodium Potassium Chloride Carbon Dioxide BUN Creatinine Glucose POC Glucose 149 H 172 H 172 H Hemoglobin A1c Calcium Phosphorus Magnesium AST Troponin T NT-Pro-B Natriuret Pep Albumin Triglycerides LDL Cholesterol Direct HDL Cholesterol PTH Intact Urine Creatinine Urine Total Protein 06/29/22 06/29/22 06/29/22 04:05 04:21 04:21 WBC 17.1 H RBC Hgb 14.6 H Hct 43.9 H Plt Count Lymph % (Auto) [facility] % (Auto) Lymph # (Auto) [facility] # (Auto) Seg Neutrophils % Seg Neuts % (Manual) Lymphocytes % (Manual) Seg Neutrophils # Seg Neutrophils # Man Lymphocytes # (Manual) PT INR APTT Heparin Anti-Xa Level ABG pH ABG pO2 ABG HCO3 ABG O2 Saturation ABG Base Excess ABG Hemoglobin Oxyhemoglobin Sodium 129 L Potassium Chloride 97.6 L Carbon Dioxide 15 L BUN 59 H Creatinine 2.1 H Glucose 140 H POC Glucose 167 H Hemoglobin A1c Calcium 8.0 L Phosphorus Magnesium AST Troponin T NT-Pro-B Natriuret Pep Albumin Triglycerides LDL Cholesterol Direct HDL Cholesterol PTH Intact Urine Creatinine Urine Total Protein 06/29/22 06/29/22 06/29/22 04:21 06:27 07:31 WBC RBC Hgb Hct Plt Count Lymph % (Auto) [facility] % (Auto) Lymph # (Auto) [facility] # (Auto) Seg Neutrophils % Seg Neuts % (Manual) Lymphocytes % (Manual) Seg Neutrophils # Seg Neutrophils # Man Lymphocytes # (Manual) PT INR APTT Heparin Anti-Xa Level ABG pH ABG pO2 ABG HCO3 ABG O2 Saturation ABG Base Excess ABG Hemoglobin Oxyhemoglobin Sodium Potassium Chloride Carbon Dioxide BUN Creatinine Glucose POC Glucose 138 H 142 H Hemoglobin A1c Calcium Phosphorus Magnesium AST Troponin T NT-Pro-B Natriuret Pep Albumin Triglycerides LDL Cholesterol Direct HDL Cholesterol PTH Intact 382.4 H Urine Creatinine Urine Total Protein 06/29/22 06/29/22 06/29/22 08:33 09:28 10:35 WBC RBC Hgb Hct Plt Count Lymph % (Auto) [facility] % (Auto) Lymph # (Auto) [facility] # (Auto) Seg Neutrophils % Seg Neuts % (Manual) Lymphocytes % (Manual) Seg Neutrophils # Seg Neutrophils # Man Lymphocytes # (Manual) PT INR APTT Heparin Anti-Xa Level ABG pH ABG pO2 ABG HCO3 ABG O2 Saturation ABG Base Excess ABG Hemoglobin Oxyhemoglobin Sodium Potassium Chloride Carbon Dioxide BUN Creatinine Glucose POC Glucose 141 H 167 H 152 H Hemoglobin A1c Calcium Phosphorus Magnesium AST Troponin T NT-Pro-B Natriuret Pep Albumin Triglycerides LDL Cholesterol Direct HDL Cholesterol PTH Intact Urine Creatinine Urine Total Protein 06/29/22 06/29/22 06/29/22 10:47 11:30 12:33 WBC RBC Hgb Hct Plt Count Lymph % (Auto) [facility] % (Auto) Lymph # (Auto) [facility] # (Auto) Seg Neutrophils % Seg Neuts % (Manual) Lymphocytes % (Manual) Seg Neutrophils # Seg Neutrophils # Man Lymphocytes # (Manual) PT INR APTT Heparin Anti-Xa Level ABG pH ABG pO2 ABG HCO3 ABG O2 Saturation ABG Base Excess ABG Hemoglobin Oxyhemoglobin Sodium 131 L Potassium Chloride 94.4 L Carbon Dioxide 15 L BUN 59 H Creatinine 2.2 H Glucose 149 H POC Glucose 134 H 146 H Hemoglobin A1c Calcium Phosphorus 5.80 H Magnesium AST Troponin T NT-Pro-B Natriuret Pep Albumin Triglycerides LDL Cholesterol Direct HDL Cholesterol PTH Intact Urine Creatinine Urine Total Protein 06/29/22 06/29/22 06/29/22 13:28 14:33 15:49 WBC RBC Hgb Hct Plt Count Lymph % (Auto) [facility] % (Auto) Lymph # (Auto) [facility] # (Auto) Seg Neutrophils % Seg Neuts % (Manual) Lymphocytes % (Manual) Seg Neutrophils # Seg Neutrophils # Man Lymphocytes # (Manual) PT INR APTT Heparin Anti-Xa Level ABG pH ABG pO2 ABG HCO3 ABG O2 Saturation ABG Base Excess ABG Hemoglobin Oxyhemoglobin Sodium Potassium Chloride Carbon Dioxide BUN Creatinine Glucose POC Glucose 170 H 188 H 155 H Hemoglobin A1c Calcium Phosphorus Magnesium AST Troponin T NT-Pro-B Natriuret Pep Albumin Triglycerides LDL Cholesterol Direct HDL Cholesterol PTH Intact Urine Creatinine Urine Total Protein 06/29/22 06/29/22 06/29/22 16:14 16:14 16:45 WBC RBC Hgb Hct Plt Count Lymph % (Auto) [facility] % (Auto) Lymph # (Auto) [facility] # (Auto) Seg Neutrophils % Seg Neuts % (Manual) Lymphocytes % (Manual) Seg Neutrophils # Seg Neutrophils # Man Lymphocytes # (Manual) PT INR APTT Heparin Anti-Xa Level 0.19 L ABG pH ABG pO2 ABG HCO3 ABG O2 Saturation ABG Base Excess ABG Hemoglobin Oxyhemoglobin Sodium 128 L Potassium Chloride 95.8 L Carbon Dioxide 15 L BUN 52 H Creatinine 1.8 H Glucose 138 H POC Glucose 135 H Hemoglobin A1c Calcium 7.9 L Phosphorus Magnesium AST Troponin T NT-Pro-B Natriuret Pep Albumin Triglycerides LDL Cholesterol Direct HDL Cholesterol PTH Intact Urine Creatinine Urine Total Protein 06/29/22 06/29/22 06/29/22 17:47 18:52 20:14 WBC RBC Hgb Hct Plt Count Lymph % (Auto) [facility] % (Auto) Lymph # (Auto) [facility] # (Auto) Seg Neutrophils % Seg Neuts % (Manual) Lymphocytes % (Manual) Seg Neutrophils # Seg Neutrophils # Man Lymphocytes # (Manual) PT INR APTT Heparin Anti-Xa Level ABG pH ABG pO2 ABG HCO3 ABG O2 Saturation ABG Base Excess ABG Hemoglobin Oxyhemoglobin Sodium Potassium Chloride Carbon Dioxide BUN Creatinine Glucose POC Glucose 150 H 123 H 155 H Hemoglobin A1c Calcium Phosphorus Magnesium AST Troponin T NT-Pro-B Natriuret Pep Albumin Triglycerides LDL Cholesterol Direct HDL Cholesterol PTH Intact Urine Creatinine Urine Total Protein 06/29/22 06/29/22 06/29/22 20:17 21:11 21:53 WBC RBC Hgb Hct Plt Count Lymph % (Auto) [facility] % (Auto) Lymph # (Auto) [facility] # (Auto) Seg Neutrophils % Seg Neuts % (Manual) Lymphocytes % (Manual) Seg Neutrophils # Seg Neutrophils # Man Lymphocytes # (Manual) PT INR APTT Heparin Anti-Xa Level ABG pH ABG pO2 ABG HCO3 ABG O2 Saturation ABG Base Excess ABG Hemoglobin Oxyhemoglobin Sodium 131 L Potassium 5.5 H D Chloride Carbon Dioxide 15 L BUN 56 H Creatinine 2.0 H Glucose 146 H POC Glucose 152 H 165 H Hemoglobin A1c Calcium Phosphorus 5.20 H Magnesium AST Troponin T NT-Pro-B Natriuret Pep Albumin Triglycerides LDL Cholesterol Direct HDL Cholesterol PTH Intact Urine Creatinine Urine Total Protein 06/29/22 06/30/22 06/30/22 23:07 00:18 00:58 WBC RBC Hgb Hct Plt Count Lymph % (Auto) [facility] % (Auto) Lymph # (Auto) [facility] # (Auto) Seg Neutrophils % Seg Neuts % (Manual) Lymphocytes % (Manual) Seg Neutrophils # Seg Neutrophils # Man Lymphocytes # (Manual) PT INR APTT Heparin Anti-Xa Level ABG pH ABG pO2 ABG HCO3 ABG O2 Saturation ABG Base Excess ABG Hemoglobin Oxyhemoglobin Sodium Potassium Chloride Carbon Dioxide BUN Creatinine Glucose POC Glucose 163 H 178 H 189 H Hemoglobin A1c Calcium Phosphorus Magnesium AST Troponin T NT-Pro-B Natriuret Pep Albumin Triglycerides LDL Cholesterol Direct HDL Cholesterol PTH Intact Urine Creatinine Urine Total Protein 06/30/22 06/30/22 06/30/22 01:57 02:59 03:53 WBC RBC Hgb Hct Plt Count Lymph % (Auto) [facility] % (Auto) Lymph # (Auto) [facility] # (Auto) Seg Neutrophils % Seg Neuts % (Manual) Lymphocytes % (Manual) Seg Neutrophils # Seg Neutrophils # Man Lymphocytes # (Manual) PT INR APTT Heparin Anti-Xa Level ABG pH ABG pO2 ABG HCO3 ABG O2 Saturation ABG Base Excess ABG Hemoglobin Oxyhemoglobin Sodium Potassium Chloride Carbon Dioxide BUN Creatinine Glucose POC Glucose 150 H 147 H 122 H Hemoglobin A1c Calcium Phosphorus Magnesium AST Troponin T NT-Pro-B Natriuret Pep Albumin Triglycerides LDL Cholesterol Direct HDL Cholesterol PTH Intact Urine Creatinine Urine Total Protein 06/30/22 06/30/22 06/30/22 04:56 05:25 05:52 WBC RBC Hgb Hct Plt Count Lymph % (Auto) [facility] % (Auto) Lymph # (Auto) [facility] # (Auto) Seg Neutrophils % Seg Neuts % (Manual) Lymphocytes % (Manual) Seg Neutrophils # Seg Neutrophils # Man Lymphocytes # (Manual) PT INR APTT Heparin Anti-Xa Level ABG pH ABG pO2 ABG HCO3 ABG O2 Saturation ABG Base Excess ABG Hemoglobin Oxyhemoglobin Sodium 132 L Potassium Chloride Carbon Dioxide 15 L BUN 53 H Creatinine 1.7 H Glucose 137 H POC Glucose 110 H 150 H Hemoglobin A1c Calcium Phosphorus Magnesium AST Troponin T NT-Pro-B Natriuret Pep Albumin Triglycerides LDL Cholesterol Direct HDL Cholesterol PTH Intact Urine Creatinine Urine Total Protein 06/30/22 06/30/22 06/30/22 07:25 08:20 09:20 WBC RBC Hgb Hct Plt Count Lymph % (Auto) [facility] % (Auto) Lymph # (Auto) [facility] # (Auto) Seg Neutrophils % Seg Neuts % (Manual) Lymphocytes % (Manual) Seg Neutrophils # Seg Neutrophils # Man Lymphocytes # (Manual) PT INR APTT Heparin Anti-Xa Level ABG pH ABG pO2 ABG HCO3 ABG O2 Saturation ABG Base Excess ABG Hemoglobin Oxyhemoglobin Sodium Potassium Chloride Carbon Dioxide BUN Creatinine Glucose POC Glucose 133 H 119 H 128 H Hemoglobin A1c Calcium Phosphorus Magnesium AST Troponin T NT-Pro-B Natriuret Pep Albumin Triglycerides LDL Cholesterol Direct HDL Cholesterol PTH Intact Urine Creatinine Urine Total Protein 06/30/22 06/30/22 06/30/22 10:21 10:59 11:25 WBC RBC Hgb Hct Plt Count Lymph % (Auto) [facility] % (Auto) Lymph # (Auto) [facility] # (Auto) Seg Neutrophils % Seg Neuts % (Manual) Lymphocytes % (Manual) Seg Neutrophils # Seg Neutrophils # Man Lymphocytes # (Manual) PT INR APTT Heparin Anti-Xa Level ABG pH ABG pO2 ABG HCO3 ABG O2 Saturation ABG Base Excess ABG Hemoglobin Oxyhemoglobin Sodium 132 L Potassium Chloride Carbon Dioxide 16 L BUN 49 H Creatinine 1.7 H Glucose 168 H POC Glucose 133 H 232 H Hemoglobin A1c Calcium 8.1 L Phosphorus Magnesium AST Troponin T NT-Pro-B Natriuret Pep Albumin Triglycerides LDL Cholesterol Direct HDL Cholesterol PTH Intact Urine Creatinine Urine Total Protein 06/30/22 06/30/22 07/01/22 16:15 21:30 05:10 WBC RBC Hgb Hct Plt Count Lymph % (Auto) [facility] % (Auto) Lymph # (Auto) [facility] # (Auto) Seg Neutrophils % Seg Neuts % (Manual) Lymphocytes % (Manual) Seg Neutrophils # Seg Neutrophils # Man Lymphocytes # (Manual) PT INR APTT Heparin Anti-Xa Level 0.24 L ABG pH ABG pO2 ABG HCO3 ABG O2 Saturation ABG Base Excess ABG Hemoglobin Oxyhemoglobin Sodium Potassium Chloride Carbon Dioxide BUN Creatinine Glucose POC Glucose 325 H 279 H Hemoglobin A1c Calcium Phosphorus Magnesium AST Troponin T NT-Pro-B Natriuret Pep Albumin Triglycerides LDL Cholesterol Direct HDL Cholesterol PTH Intact Urine Creatinine Urine Total Protein 07/01/22 07/01/22 07/01/22 05:10 07:38 09:13 WBC RBC Hgb Hct Plt Count Lymph % (Auto) [place] % (Auto) Lymph # (Auto) [place] # (Auto) Seg Neutrophils % Seg Neuts % (Manual) Lymphocytes % (Manual) Seg Neutrophils # Seg Neutrophils # Man Lymphocytes # (Manual) PT 15.9 H INR 1.14 H APTT Heparin Anti-Xa Level ABG pH ABG pO2 ABG HCO3 ABG O2 Saturation ABG Base Excess ABG Hemoglobin Oxyhemoglobin Sodium 132 L Potassium Chloride 97.8 L Carbon Dioxide 19 L BUN 34 H Creatinine 1.3 H Glucose 250 H POC Glucose 235 H Hemoglobin A1c Calcium Phosphorus Magnesium AST Troponin T NT-Pro-B Natriuret Pep Albumin Triglycerides LDL Cholesterol Direct HDL Cholesterol PTH Intact Urine Creatinine Urine Total Protein 07/01/22 07/01/22 07/01/22 12:03 13:42 16:32 WBC RBC Hgb Hct Plt Count Lymph % (Auto) [place] % (Auto) Lymph # (Auto) [place] # (Auto) Seg Neutrophils % Seg Neuts % (Manual) Lymphocytes % (Manual) Seg Neutrophils # Seg Neutrophils # Man Lymphocytes # (Manual) PT INR APTT Heparin Anti-Xa Level 0.25 L ABG pH ABG pO2 ABG HCO3 ABG O2 Saturation ABG Base Excess ABG Hemoglobin Oxyhemoglobin Sodium Potassium Chloride Carbon Dioxide BUN Creatinine Glucose POC Glucose 272 H 316 H Hemoglobin A1c Calcium Phosphorus Magnesium AST Troponin T NT-Pro-B Natriuret Pep Albumin Triglycerides LDL Cholesterol Direct HDL Cholesterol PTH Intact Urine Creatinine Urine Total Protein 07/01/22 07/01/22 07/02/22 21:21 23:14 07:41 WBC RBC Hgb Hct Plt Count Lymph % (Auto) [place] % (Auto) Lymph # (Auto) [place] # (Auto) Seg Neutrophils % Seg Neuts % (Manual) Lymphocytes % (Manual) Seg Neutrophils # Seg Neutrophils # Man Lymphocytes # (Manual) PT INR APTT Heparin Anti-Xa Level 0.27 L ABG pH ABG pO2 ABG HCO3 ABG O2 Saturation ABG Base Excess ABG Hemoglobin Oxyhemoglobin Sodium Potassium Chloride Carbon Dioxide BUN Creatinine Glucose POC Glucose 262 H 287 H Hemoglobin A1c Calcium Phosphorus Magnesium AST Troponin T NT-Pro-B Natriuret Pep Albumin Triglycerides LDL Cholesterol Direct HDL Cholesterol PTH Intact Urine Creatinine Urine Total Protein 07/02/22 07/02/22 07/02/22 08:12 08:12 20:28 WBC RBC Hgb 14.7 H Hct 46.3 H Plt Count 138 L Lymph % (Auto) [place] % (Auto) Lymph # (Auto) [place] # (Auto) Seg Neutrophils % Seg Neuts % (Manual) Lymphocytes % (Manual) Seg Neutrophils # Seg Neutrophils # Man Lymphocytes # (Manual) PT INR APTT Heparin Anti-Xa Level 0.21 L ABG pH ABG pO2 ABG HCO3 ABG O2 Saturation ABG Base Excess ABG Hemoglobin Oxyhemoglobin Sodium 129 L Potassium Chloride 95.7 L Carbon Dioxide 17 L BUN 24 H Creatinine Glucose 275 H POC Glucose Hemoglobin A1c Calcium Phosphorus 2.10 L D Magnesium AST Troponin T NT-Pro-B Natriuret Pep Albumin Triglycerides LDL Cholesterol Direct HDL Cholesterol PTH Intact Urine Creatinine Urine Total Protein 07/02/22 07/02/22 07/03/22 20:28 23:01 07:28 WBC RBC Hgb Hct Plt Count Lymph % (Auto) [place] % (Auto) Lymph # (Auto) [place] # (Auto) Seg Neutrophils % Seg Neuts % (Manual) Lymphocytes % (Manual) Seg Neutrophils # Seg Neutrophils # Man Lymphocytes # (Manual) PT 17.3 H INR 1.26 H APTT 24.1 L Heparin Anti-Xa Level ABG pH ABG pO2 ABG HCO3 ABG O2 Saturation ABG Base Excess ABG Hemoglobin Oxyhemoglobin Sodium Potassium Chloride Carbon Dioxide BUN Creatinine Glucose POC Glucose 340 H 261 H Hemoglobin A1c Calcium Phosphorus Magnesium AST Troponin T NT-Pro-B Natriuret Pep Albumin Triglycerides LDL Cholesterol Direct HDL Cholesterol PTH Intact Urine Creatinine Urine Total Protein 07/03/22 07/03/22 07/03/22 11:30 12:20 16:23 WBC RBC Hgb Hct Plt Count Lymph % (Auto) [place] % (Auto) Lymph # (Auto) [place] # (Auto) Seg Neutrophils % Seg Neuts % (Manual) Lymphocytes % (Manual) Seg Neutrophils # Seg Neutrophils # Man Lymphocytes # (Manual) PT INR APTT Heparin Anti-Xa Level ABG pH ABG pO2 ABG HCO3 ABG O2 Saturation ABG Base Excess ABG Hemoglobin Oxyhemoglobin Sodium 134 L Potassium Chloride Carbon Dioxide BUN 18 H Creatinine Glucose 271 H POC Glucose 292 H 255 H Hemoglobin A1c Calcium Phosphorus Magnesium AST Troponin T NT-Pro-B Natriuret Pep Albumin Triglycerides LDL Cholesterol Direct HDL Cholesterol PTH Intact Urine Creatinine Urine Total Protein 07/03/22 07/04/22 07/04/22 22:01 05:37 05:37 WBC RBC Hgb Hct Plt Count Lymph % (Auto) 8.[address] % (Auto) 10.1 H Lymph # (Auto) 0.[address] # (Auto) 1.0 H Seg Neutrophils % 80.6 H Seg Neuts % (Manual) Lymphocytes % (Manual) Seg Neutrophils # 8.0 H Seg Neutrophils # Man Lymphocytes # (Manual) PT INR APTT Heparin Anti-Xa Level ABG pH ABG pO2 ABG HCO3 ABG O2 Saturation ABG Base Excess ABG Hemoglobin Oxyhemoglobin Sodium Potassium Chloride Carbon Dioxide BUN Creatinine Glucose 217 H POC Glucose 281 H Hemoglobin A1c Calcium Phosphorus Magnesium AST Troponin T NT-Pro-B Natriuret Pep Albumin Triglycerides LDL Cholesterol Direct HDL Cholesterol PTH Intact Urine Creatinine Urine Total Protein 07/04/22 07/04/22 07/04/22 07:40 11:15 11:52 WBC RBC Hgb Hct Plt Count Lymph % (Auto) [facility] % (Auto) Lymph # (Auto) [place] # (Auto) Seg Neutrophils % Seg Neuts % (Manual) Lymphocytes % (Manual) Seg Neutrophils # Seg Neutrophils # Man Lymphocytes # (Manual) PT INR APTT Heparin Anti-Xa Level ABG pH 7.303 L ABG pO2 64.6 L ABG HCO3 ABG O2 Saturation 92.9 L ABG Base Excess ABG Hemoglobin 11.9 L Oxyhemoglobin 90.6 L Sodium Potassium Chloride Carbon Dioxide BUN Creatinine Glucose POC Glucose 211 H 267 H Hemoglobin A1c Calcium Phosphorus Magnesium AST Troponin T NT-Pro-B Natriuret Pep Albumin Triglycerides LDL Cholesterol Direct HDL Cholesterol PTH Intact Urine Creatinine Urine Total Protein 07/04/22 07/04/22 07/05/22 16:51 22:03 07:48 WBC RBC Hgb Hct Plt Count Lymph % (Auto) [place] % (Auto) Lymph # (Auto) [place] # (Auto) Seg Neutrophils % Seg Neuts % (Manual) Lymphocytes % (Manual) Seg Neutrophils # Seg Neutrophils # Man Lymphocytes # (Manual) PT INR APTT Heparin Anti-Xa Level ABG pH ABG pO2 ABG HCO3 ABG O2 Saturation ABG Base Excess ABG Hemoglobin Oxyhemoglobin Sodium Potassium Chloride Carbon Dioxide BUN Creatinine Glucose POC Glucose 273 H 202 H 223 H Hemoglobin A1c Calcium Phosphorus Magnesium AST Troponin T NT-Pro-B Natriuret Pep Albumin Triglycerides LDL Cholesterol Direct HDL Cholesterol PTH Intact Urine Creatinine Urine Total Protein 07/05/22 07/05/22 07/05/22 11:06 18:03 Unknown WBC 16.5 H RBC Hgb Hct Plt Count Lymph % (Auto) [place] % (Auto) Lymph # (Auto) [place] # (Auto) Seg Neutrophils % Seg Neuts % (Manual) 91.0 H Lymphocytes % (Manual) 1.0 L Seg Neutrophils # Seg Neutrophils # Man 15.0 H Lymphocytes # (Manual) 0.2 L PT INR APTT Heparin Anti-Xa Level ABG pH 7.313 L ABG pO2 102.1 H ABG HCO3 27.2 H ABG O2 Saturation ABG Base Excess ABG Hemoglobin 10.6 L Oxyhemoglobin Sodium Potassium Chloride Carbon Dioxide BUN Creatinine Glucose POC Glucose 219 H Hemoglobin A1c Calcium Phosphorus Magnesium AST Troponin T NT-Pro-B Natriuret Pep Albumin Triglycerides LDL Cholesterol Direct HDL Cholesterol PTH Intact Urine Creatinine Urine Total Protein 07/05/22 07/06/22 07/06/22 Unknown 00:30 03:33 WBC RBC Hgb Hct Plt Count Lymph % (Auto) [facility] % (Auto) Lymph # (Auto) [place] # (Auto) Seg Neutrophils % Seg Neuts % (Manual) Lymphocytes % (Manual) Seg Neutrophils # Seg Neutrophils # Man Lymphocytes # (Manual) PT INR APTT Heparin Anti-Xa Level ABG pH ABG pO2 142.7 H ABG HCO3 28.9 H ABG O2 Saturation ABG Base Excess 3.6 H ABG Hemoglobin 10.5 L Oxyhemoglobin Sodium Potassium Chloride Carbon Dioxide BUN Creatinine Glucose 290 H POC Glucose 199 H Hemoglobin A1c Calcium Phosphorus Magnesium AST Troponin T NT-Pro-B Natriuret Pep Albumin Triglycerides LDL Cholesterol Direct HDL Cholesterol PTH Intact Urine Creatinine Urine Total Protein 07/06/22 07/06/22 07/06/22 04:00 04:00 06:00 WBC 11.4 H RBC 3.55 L Hgb Hct Plt Count Lymph % (Auto) [facility] % (Auto) Lymph # (Auto) [facility] # (Auto) Seg Neutrophils % Seg Neuts % (Manual) Lymphocytes % (Manual) Seg Neutrophils # Seg Neutrophils # Man Lymphocytes # (Manual) PT INR APTT Heparin Anti-Xa Level ABG pH ABG pO2 ABG HCO3 ABG O2 Saturation ABG Base Excess ABG Hemoglobin Oxyhemoglobin Sodium Potassium Chloride Carbon Dioxide BUN 22 H Creatinine 1.3 H Glucose 173 H POC Glucose 180 H Hemoglobin A1c Calcium Phosphorus Magnesium AST Troponin T NT-Pro-B Natriuret Pep Albumin Triglycerides LDL Cholesterol Direct HDL Cholesterol PTH Intact Urine Creatinine Urine Total Protein 07/06/22 07/06/22 07/06/22 09:19 12:39 17:30 WBC RBC Hgb Hct Plt Count Lymph % (Auto) [facility] % (Auto) Lymph # (Auto) [facility] # (Auto) Seg Neutrophils % Seg Neuts % (Manual) Lymphocytes % (Manual) Seg Neutrophils # Seg Neutrophils # Man Lymphocytes # (Manual) PT INR APTT Heparin Anti-Xa Level ABG pH ABG pO2 ABG HCO3 ABG O2 Saturation ABG Base Excess ABG Hemoglobin Oxyhemoglobin Sodium Potassium Chloride Carbon Dioxide BUN Creatinine Glucose POC Glucose 198 H 179 H 106 H Hemoglobin A1c Calcium Phosphorus Magnesium AST Troponin T NT-Pro-B Natriuret Pep Albumin Triglycerides LDL Cholesterol Direct HDL Cholesterol PTH Intact Urine Creatinine Urine Total Protein 07/06/22 07/06/22 07/07/22 20:59 23:30 03:02 WBC RBC Hgb Hct Plt Count Lymph % (Auto) [facility] % (Auto) Lymph # (Auto) [facility] # (Auto) Seg Neutrophils % Seg Neuts % (Manual) Lymphocytes % (Manual) Seg Neutrophils # Seg Neutrophils # Man Lymphocytes # (Manual) PT INR APTT Heparin Anti-Xa Level ABG pH ABG pO2 ABG HCO3 ABG O2 Saturation ABG Base Excess ABG Hemoglobin Oxyhemoglobin Sodium Potassium Chloride Carbon Dioxide BUN Creatinine Glucose POC Glucose 152 H 126 H 135 H Hemoglobin A1c Calcium Phosphorus Magnesium AST Troponin T NT-Pro-B Natriuret Pep Albumin Triglycerides LDL Cholesterol Direct HDL Cholesterol PTH Intact Urine Creatinine Urine Total Protein 07/07/22 07/07/22 07/07/22 04:13 05:35 05:35 WBC RBC 3.13 L Hgb 9.7 L Hct 28.7 L Plt Count Lymph % (Auto) [facility] % (Auto) Lymph # (Auto) [facility] # (Auto) Seg Neutrophils % Seg Neuts % (Manual) Lymphocytes % (Manual) Seg Neutrophils # Seg Neutrophils # Man Lymphocytes # (Manual) PT INR APTT Heparin Anti-Xa Level ABG pH 7.473 H ABG pO2 93.4 H ABG HCO3 29.9 H ABG O2 Saturation ABG Base Excess 5.8 H ABG Hemoglobin 10.0 L Oxyhemoglobin Sodium Potassium Chloride Carbon Dioxide 31 H BUN 21 H Creatinine Glucose POC Glucose Hemoglobin A1c Calcium Phosphorus Magnesium AST Troponin T NT-Pro-B Natriuret Pep Albumin Triglycerides LDL Cholesterol Direct HDL Cholesterol PTH Intact Urine Creatinine Urine Total Protein 07/07/22 07/07/22 07/07/22 06:15 12:25 18:36 WBC RBC Hgb Hct Plt Count Lymph % (Auto) [facility] % (Auto) Lymph # (Auto) [facility] # (Auto) Seg Neutrophils % Seg Neuts % (Manual) Lymphocytes % (Manual) Seg Neutrophils # Seg Neutrophils # Man Lymphocytes # (Manual) PT INR APTT Heparin Anti-Xa Level ABG pH ABG pO2 ABG HCO3 ABG O2 Saturation ABG Base Excess ABG Hemoglobin Oxyhemoglobin Sodium Potassium Chloride Carbon Dioxide BUN Creatinine Glucose POC Glucose 67 L 111 H 167 H Hemoglobin A1c Calcium Phosphorus Magnesium AST Troponin T NT-Pro-B Natriuret Pep Albumin Triglycerides LDL Cholesterol Direct HDL Cholesterol PTH Intact Urine Creatinine Urine Total Protein 07/07/22 07/08/22 07/08/22 23:38 04:00 04:15 WBC RBC Hgb Hct Plt Count Lymph % (Auto) [facility] % (Auto) Lymph # (Auto) [facility] # (Auto) Seg Neutrophils % Seg Neuts % (Manual) Lymphocytes % (Manual) Seg Neutrophils # Seg Neutrophils # Man Lymphocytes # (Manual) PT INR APTT Heparin Anti-Xa Level ABG pH ABG pO2 63.4 L ABG HCO3 29.2 H ABG O2 Saturation 94.0 L ABG Base Excess 4.2 H ABG Hemoglobin 10.0 L Oxyhemoglobin 91.8 L Sodium Potassium Chloride Carbon Dioxide BUN 26 H Creatinine Glucose 276 H POC Glucose 243 H Hemoglobin A1c Calcium Phosphorus Magnesium AST Troponin T NT-Pro-B Natriuret Pep Albumin Triglycerides LDL Cholesterol Direct HDL Cholesterol PTH Intact Urine Creatinine Urine Total Protein 07/08/22 07/08/22 07/08/22 05:00 05:07 11:33 WBC RBC 3.30 L Hgb 9.9 L Hct Plt Count Lymph % (Auto) [facility] % (Auto) Lymph # (Auto) [facility] # (Auto) Seg Neutrophils % Seg Neuts % (Manual) Lymphocytes % (Manual) Seg Neutrophils # Seg Neutrophils # Man Lymphocytes # (Manual) PT INR APTT Heparin Anti-Xa Level ABG pH ABG pO2 ABG HCO3 ABG O2 Saturation ABG Base Excess ABG Hemoglobin Oxyhemoglobin Sodium Potassium Chloride Carbon Dioxide BUN Creatinine Glucose POC Glucose 282 H 315 H Hemoglobin A1c Calcium Phosphorus Magnesium AST Troponin T NT-Pro-B Natriuret Pep Albumin Triglycerides LDL Cholesterol Direct HDL Cholesterol PTH Intact Urine Creatinine Urine Total Protein 07/08/22 07/08/22 07/08/22 15:56 22:12 23:33 WBC RBC Hgb Hct Plt Count Lymph % (Auto) [facility] % (Auto) Lymph # (Auto) [facility] # (Auto) Seg Neutrophils % Seg Neuts % (Manual) Lymphocytes % (Manual) Seg Neutrophils # Seg Neutrophils # Man Lymphocytes # (Manual) PT INR APTT Heparin Anti-Xa Level ABG pH ABG pO2 ABG HCO3 ABG O2 Saturation ABG Base Excess ABG Hemoglobin Oxyhemoglobin Sodium Potassium Chloride Carbon Dioxide BUN Creatinine Glucose POC Glucose 378 H 389 H 390 H Hemoglobin A1c Calcium Phosphorus Magnesium AST Troponin T NT-Pro-B Natriuret Pep Albumin Triglycerides LDL Cholesterol Direct HDL Cholesterol PTH Intact Urine Creatinine Urine Total Protein 07/09/22 07/09/22 04:00 04:00 WBC RBC 3.30 L Hgb 9.9 L Hct Plt Count Lymph % (Auto) [facility] % (Auto) Lymph # (Auto) [facility] # (Auto) Seg Neutrophils % Seg Neuts % (Manual) Lymphocytes % (Manual) Seg Neutrophils # Seg Neutrophils # Man Lymphocytes # (Manual) PT INR APTT Heparin Anti-Xa Level ABG pH ABG pO2 ABG HCO3 ABG O2 Saturation ABG Base Excess ABG Hemoglobin Oxyhemoglobin Sodium 146 H Potassium Chloride Carbon Dioxide BUN 36 H Creatinine Glucose 365 H POC Glucose Hemoglobin A1c Calcium Phosphorus Magnesium AST Troponin T NT-Pro-B Natriuret Pep Albumin Triglycerides LDL Cholesterol Direct HDL Cholesterol PTH Intact Urine Creatinine Urine Total Protein Allied health notes reviewed: RT
--- NOTE | 2022-07-09 10:02 | Event Note ---
Date: 07/09/22 CT PA demonstrates minimal thrombus burden with a few subsegmental pulmonary emboli in the right lower lobe and a distal segmental pulmonary emboli. This usually causes minimal to no symptoms. This would not lead to cardiopulmonary arrest. US LE demonstrates evidence of continued successful thrombectomy of the bilateral lower extremities. No residual DVT. From vascular perspective, no active issues requiring intervention. Recommend continuation of Eliquis anticoagulation. Unclear why patient had episode of arrest. Not due to thromboembolic phenomenon based on imaging. There is consolidation of the left lower lobe.
--- NOTE | 2022-07-09 10:39 | Progress Note ---
Assessment and Plan Assessment and plan: This is a 52-year-old female with known past medical history of type 2 diabetes mellitus, hypertension, Nicotine dependence, COPD, PE/DVT was on Eliquis at home, medical noncompliance, and bipolar disorder intially admitted for DKA, STEFFANIE, and extensive BLE DVT s/p DKA protocol and bilateral caval iliofemoral thrombectomy. Patient was transferred back to the ICU on 07/05 s/p Cardiac Arrest with ROSC. Hospital Course to Date: 06/28: Mentation improved, denied any abdominal pain, no nausea/vomiting. BG and anio gap still elevated. Continue insulin gtt and IVF resuscitation per protocol. Monitor and replace electrolytes as needed, serial Labs ordered. Transition to subQ once gap is closed. BLE ischemia noted, extremities are purple and cool to touch, palpable pedal pulses appreciated. Patient reported that she has a history of PE/DVT on Eliquis but she admitted that she has not been complaints with any of her medications for 3 days. 06/29: Anion Gap still greater than 20, and CO2 15 this am. 1amp of bcarb given, continue Insulin gtt and IVF resuscitation per protocol. repeat BMP ordered, will transition to subQ once gap is closed. BLE doppler noted with extensive BLE DVT, patient remains on the heparin gtt. Patient reported she was on PO Eliquis at home and had a IVF filter placed. Vascular Surgery is also following, appreciate recommendations. Hyponatremia improving, appreciate Nephrology's recs. 06/30: Remains stable. Still on the DKA protocol, BG level has been less than 200s for over 24hrs, anion gap still in the 20s this am, probably due to STEFFANIE. Will transition patient to Subq insulin. Patient remains on the heparin gtt. BLE is unchanged, CHRISTOPHER holbrook applied. Per vascular Surgery, possible interventions/thrombectomy once the patient is stabilized. 07/01: Transition to subQ insulin yesteday. Patient remains stable, tolerating PO intake. Insulin regimen adjusted for hyperglycemia, continue BG check ACHS and IVF hydration for now. Hyponatremia is improving, nephrology is following. Patient remains on heparin gtt per protocol for BLE ischemia. Possible interventions/thrombectomy tomorrow per Vascular Surgery. 07/02: Patient seen and examined at the bedside. Remains stable on RA, VSS. Yesterday was transitioned to SubQ insulin, tolerating PO intake. BLE ischemia is unchanged with palpable pedal pulses. CHRISTOPHER Holbrook applied per Vascular Surgery. Discussed with vascular surgery today they are going to proceed with bilateral thrombectomy. We will continue on heparin drip at this time. Education provided to the patient on blood sugar control. Compliance discussion also had for 15 minutes counseling. Anticipate discharge in 24 to 48 hours postprocedure 07/03: Patient underwent thrombectomy of bilateral caval iliofemoral DVTs by vascular surgery on 07/02/2022. Patient tolerated the procedure well 07/04: No acute events overnight. 07/05: Cardiac arrest. Transferred to ICU. PICC line placed. Levophed, vasopressin, phenylephrine, intubated on ventilatory support. A-line placed 07/06: This morning patient was placed on CPAP trial which he failed, patient was started and titrated off. No changes to mental status. Echocardiogram read which showed no right heart strain. BUN/creatinine are increasing but we will continue to monitor. Given 1 dose of vancomycin and cefepime given leukocytosis and febrile illness. Bicarbonate drip discontinued. 07/07: Patient was placed on CPAP trial which he failed due to tachypnea. Decreased her insulin regimen due to hypoglycemia. 07/08: No acute events reported overnight, remains on propofol. RT to trial CPAP. Small PE noted on CTA chest which vascular surgery stated would not require intervention and would typically have minimal to no symptoms. 07/09: KARINA overnight. Awake and appropriate, following commands. Tolerating PSV trial, plan for possible extubation per CCM. Hyperglycemic this am, SSI and Lantus adjusted. Repeat BLE doppler noted, no evidence of DVT, however positive acute superficial thrombosus in BLE. No intervention warranted at this time per Vascular Surgery, continue PO Eliquis. Neuro: h/o medical noncompliance, bipolar disorder -Psych consulted, appreciate recommendations -Sedated with propofol and fentanyl -RASS goal 0 to -1 -Reorientation as needed -Maintain sleep-wake cycle -As needed analgesia -Per psych: Haldol, Depakote -Bilateral wrist restraints for safety Cardiac: s/p cardiac arrest on 07/05, h/o hypertension, HLD -Cardiology consulted, appreciate recommendations -Blood pressure monitoring per protocol -S/p vasopressor support with Levophed, pheynlepinephrine, vasopressin -MAP goal greater than 65 -Hold home hypertensive regimen of lisinopril and nifedipine -Continue home fenofibrate -Home medications: Lisinopril/hydrochlorothiazide 25/12.5 p.o. daily, fenofibrate 1 consistently grams daily -Echocardiogram shows LVEF 60 to 65%, RVSP 20 mmHg, no RV strain Respiratory: Acute hypoxic respiratory failure -CCM consulted, appreciate recommendations -Intubated on 06/04 with 7.50 ETT at 22 at the lips -A.m. vent settings:PSV- 40%, 6, PS-8 -A.m. ABG and CXR noted -VAP bundle -SPO2 monitoring GI: Morbid obese, moderate protein calorie malnutrition -PPI -NTR consulted for tube feedings : Acute kidney injury likely secondary to vasomotor nephropathy (resolved) -Nephrology consulted, appreciate recommendations -Monitor intake and output -Renally dose medications -Avoid nephrotoxic medications -Trend BMP ID: Bilateral calf ulcers -General surgery consulted, appreciate recommendations -WOCN -Wound care per nursing -Antibiotic therapy with cefepime/vancomycin x1 -f/u blood culture -Monitor WBC and temperature curve Endo: Diabetes Mellitus with hyperglycemia s/p DKA, hypothyroidism -06/28 hemoglobin A1c 9.7 -SSI and lantus adjusted -Continue home Synthroid -Avoid hypoglycemia -Home regimen: Jardiance 5 mg daily, glimepiride 4 mg twice daily, Latuda 40 mg nightly, Ozempic 1 unit SQ per week Heme: Acute PE, Acute DVT h/o chronic right lower extremity DVT on Eliquis s/p IVC filter -Bilateral lower extremity Doppler ultrasound revealed bilateral lower extremity occlusive DVT with extension to IVC filter -07/07 CTA chest showed few small subsegmental right lower lobe and single distal small segmental right lower lobe pulmonary embolism, consolidation of the left lower lobe -Bilateral lower extremity ultrasound pending -Per vascular surgery minimal thrombus burden, unlikely to represent a cause of acute respiratory arrest, this would typically have minimal to no symptoms, no evidence of significant pulmonary emboli which would require intervention -S/p thrombectomy on 07/02 -s/p Heparin drip -Eliquis p.o. -Trend CBC -Transfuse hemoglobin less than 7 -SCDs to BLE while in bed The high probability of a clinically significant, sudden or life threatening deterioration of the [multiple] system(s) required my full and direct attention, intervention and personal management. The aggregate critical care time was [60] minutes. This time is in addition to time spent performing reported procedures but includes the following: [x] Data Review and interpretation [x] Patient assessment and monitoring of vital signs [x] Documentation [x] Medication orders and management Disposition Plan: ICU Total Time Spent with Patient (Minutes): 60 History Interval history: Patient seen and examined at the bedside. Intubated, off sedations. Following commands and appropriate. Tolerating PSV trial. SR on the monitor, VSS. KARINA [facility] Hospitalist Physical - Constitutional Vitals: Temp Pulse Resp BP Pulse Ox 99.5 F 67 19 146/69 96 07/09/22 07:25 07/09/22 08:00 07/09/22 08:00 07/09/22 08:00 07/09/22 08:00 General appearance: Present: no acute distress, well-nourished, obese, other (Awake, on the vent, follows commands) - EENT Eyes: Present: PERRL, EOM intact ENT: hearing intact - Neck Neck: Present: normal ROM - Respiratory Respiratory effort: normal Respiratory: bilateral: rhonchi - Cardiovascular Rhythm: regular Heart Sounds: Present: S1 & S2 - Extremities Extremities: no ischemia, pulses intact, pulses symmetrical, abnormal (BLE discoloration) Extremity abnormal: edema - Peripheral Assessment Generalized Edema Type: Non-pitting Edema Degree: 4+ Capillary Refill: < 3 seconds Skin Temperature: Warm Peripheral Pulses: within normal limits - Abdominal General gastrointestinal: soft, non-distended, normal bowel sounds - Integumentary Integumentary: Present: warm, dry HEART Score - HEART Score Troponin: Troponin T 0.080 ng/mL (0.00-0.029) H 06/27/22 20:48 Results - Labs CBC & Chem 7: 07/09/22 04:00 07/09/22 04:00 Labs: Laboratory Last Values WBC 6.8 K/mm3 (4.5-11.0) 07/09/22 04:00 RBC 3.30 M/mm3 (3.65-5.03) L 07/09/22 04:00 Hgb 9.9 gm/dl (10.1-14.3) L 07/09/22 04:00 Hct 30.7 % (30.3-42.9) 07/09/22 04:00 MCV 93 fl (79-97) 07/09/22 04:00 MCH 30 pg (28-32) 07/09/22 04:00 MCHC 32 % (30-34) 07/09/22 04:00 RDW 15.2 % (13.2-15.2) 07/09/22 04:00 Plt Count 187 K/mm3 (140-440) 07/09/22 04:00 Lymph % (Auto) 8.4 % (13.4-35.0) L 07/04/22 05:37 Irion % (Auto) 10.1 % (0.0-7.3) H 07/04/22 05:37 Eos % (Auto) 0.4 % (0.0-4.3) 07/04/22 05:37 Baso % (Auto) 0.5 % (0.0-1.8) 07/04/22 05:37 Lymph # (Auto) 0.8 K/mm3 (1.2-5.4) L 07/04/22 05:37 Irion # (Auto) 1.0 K/mm3 (0.0-0.8) H 07/04/22 05:37 Eos # (Auto) 0.0 K/mm3 (0.0-0.4) 07/04/22 05:37 Baso # (Auto) 0.0 K/mm3 (0.0-0.1) 07/04/22 05:37 Add Manual Diff Complete 07/05/22 Unknown Total Counted 100 07/05/22 Unknown Seg Neutrophils % 80.6 % (40.0-70.0) H 07/04/22 05:37 Seg Neuts % (Manual) 91.0 % (40.0-70.0) H 07/05/22 Unknown Band Neutrophils % 0 % 07/05/22 Unknown Lymphocytes % (Manual) 1.0 % (13.4-35.0) L 07/05/22 Unknown Reactive Lymphs % (Man) 0 % 07/05/22 Unknown Monocytes % (Manual) 4.0 % (0.0-7.3) 07/05/22 Unknown Eosinophils % (Manual) 0 % (0.0-4.3) 07/05/22 Unknown Basophils % (Manual) 0 % (0.0-1.8) 07/05/22 Unknown Metamyelocytes % 3.0 % 07/05/22 Unknown Myelocytes % 1.0 % 07/05/22 Unknown Promyelocytes % 0 % 07/05/22 Unknown Blast Cells % 0 % 07/05/22 Unknown Nucleated RBC % Not Reportable 07/05/22 Unknown Seg Neutrophils # 8.0 K/mm3 (1.8-7.7) H 07/04/22 05:37 Seg Neutrophils # Man 15.0 K/mm3 (1.8-7.7) H 07/05/22 Unknown Band Neutrophils # 0.0 K/mm3 07/05/22 Unknown Lymphocytes # (Manual) 0.2 K/mm3 (1.2-5.4) L 07/05/22 Unknown Abs React Lymphs (Man) 0.0 K/mm3 07/05/22 Unknown Monocytes # (Manual) 0.7 K/mm3 (0.0-0.8) 07/05/22 Unknown Eosinophils # (Manual) 0.0 K/mm3 (0.0-0.4) 07/05/22 Unknown Basophils # (Manual) 0.0 K/mm3 (0.0-0.1) 07/05/22 Unknown Metamyelocytes # 0.5 K/mm3 07/05/22 Unknown Myelocytes # 0.2 K/mm3 07/05/22 Unknown Promyelocytes # 0.0 K/mm3 07/05/22 Unknown Blast Cells # 0.0 K/mm3 07/05/22 Unknown WBC Morphology Not Reportable 07/05/22 Unknown WBC Morphology TNR 07/05/22 Unknown Hypersegmented Neuts Not Reportable 07/05/22 Unknown Hyposegmented Neuts Not Reportable 07/05/22 Unknown Hypogranular Neuts Not Reportable 07/05/22 Unknown Smudge Cells Not Reportable 07/05/22 Unknown Toxic Granulation Not Reportable 07/05/22 Unknown Toxic Vacuolation Not Reportable 07/05/22 Unknown Dohle Bodies Not Reportable 07/05/22 Unknown Pelger-Huet Anomaly Not Reportable 07/05/22 Unknown Jesús Rods Not Reportable 07/05/22 Unknown Platelet Estimate Consistent w auto 07/05/22 Unknown Clumped Platelets Few 07/05/22 Unknown Plt Clumps, EDTA Not Reportable 07/05/22 Unknown Large Platelets Not Reportable 07/05/22 Unknown Giant Platelets Not Reportable 07/05/22 Unknown Platelet Satelliting Not Reportable 07/05/22 Unknown Plt Morphology Comment Not Reportable 07/05/22 Unknown RBC Morphology Normal 07/05/22 Unknown Dimorphic RBCs Not Reportable 07/05/22 Unknown Polychromasia Not Reportable 07/05/22 Unknown Hypochromasia Not Reportable 07/05/22 Unknown Poikilocytosis Not Reportable 07/05/22 Unknown Anisocytosis Not Reportable 07/05/22 Unknown Microcytosis Not Reportable 07/05/22 Unknown Macrocytosis Not Reportable 07/05/22 Unknown Spherocytes Not Reportable 07/05/22 Unknown Pappenheimer Bodies Not Reportable 07/05/22 Unknown Sickle Cells Not Reportable 07/05/22 Unknown Target Cells Not Reportable 07/05/22 Unknown Tear Drop Cells Not Reportable 07/05/22 Unknown Ovalocytes Not Reportable 07/05/22 Unknown Helmet Cells Not Reportable 07/05/22 Unknown Barnhart-Bells Bodies Not Reportable 07/05/22 Unknown [place] Rings Not Reportable 07/05/22 Unknown [place] Cells Not Reportable 07/05/22 Unknown Bite Cells Not Reportable 07/05/22 Unknown Crenated Cell Not Reportable 07/05/22 Unknown Elliptocytes Not Reportable 07/05/22 Unknown Acanthocytes (Spur) Not Reportable 07/05/22 Unknown Rouleaux Not Reportable 07/05/22 Unknown Hemoglobin C Crystals Not Reportable 07/05/22 Unknown Schistocytes Not Reportable 07/05/22 Unknown Malaria parasites Not Reportable 07/05/22 Unknown Ellis Bodies Not Reportable 07/05/22 Unknown Hem Pathologist Commnt No 07/05/22 Unknown PT 17.3 Sec. (12.2-14.9) H 07/02/22 20:28 INR 1.26 (0.87-1.13) H 07/02/22 20:28 APTT 24.1 Sec. (24.2-36.6) L 07/02/22 20:28 Heparin Anti-Xa Level 0.21 U.I./ml (0.3-0.7) L 07/02/22 08:12 ABG pH 7.423 pH Units (7.350-7.450) 07/08/22 04:15 ABG pCO2 45.8 mm Hg 07/08/22 04:15 ABG pO2 63.4 mm Hg (80.0-90.0) L 07/08/22 04:15 ABG HCO3 29.2 mmol/L (20.0-26.0) H 07/08/22 04:15 ABG O2 Saturation 94.0 % (95.0-99.0) L 07/08/22 04:15 ABG O2 Content 13.0 (0.0-44) 07/08/22 04:15 ABG Base Excess 4.2 mmol/L (-2.0-3.0) H 07/08/22 04:15 ABG Hemoglobin 10.0 gm/dl (12.0-16.0) L 07/08/22 04:15 ABG Carboxyhemoglobin 1.8 % (0.0-5.0) 07/08/22 04:15 ABG Methemoglobin 0.5 % (0.0-1.5) 07/08/22 04:15 Oxyhemoglobin 91.8 % (95.0-99.0) L 07/08/22 04:15 FiO2 35 % 07/08/22 04:15 Sodium 146 mmol/L (137-145) H 07/09/22 04:00 Potassium 4.6 mmol/L (3.6-5.0) 07/09/22 04:00 Chloride 105.1 mmol/L (98-107) 07/09/22 04:00 Carbon Dioxide 30 mmol/L (22-30) 07/09/22 04:00 Anion Gap 16 mmol/L 07/09/22 04:00 BUN 36 mg/dL (7-17) H 07/09/22 04:00 Creatinine 1.0 mg/dL (0.6-1.2) 07/09/22 04:00 Estimated GFR 58 ml/min 07/09/22 04:00 BUN/Creatinine Ratio 36 % 07/09/22 04:00 Glucose 365 mg/dL (65-100) H 07/09/22 04:00 POC Glucose 390 mg/dL (70-105) H 07/08/22 23:33 Hemoglobin A1c 9.7 % (4-6) H 06/28/22 20:31 Lactic Acid 1.90 mmol/L (0.7-2.0) 06/29/22 10:47 Calcium 9.3 mg/dL (8.4-10.2) 07/09/22 04:00 Phosphorus 2.10 mg/dL (2.5-4.5) L D 07/02/22 08:12 Magnesium 2.00 mg/dL (1.7-2.3) 07/05/22 Unknown Total Bilirubin 0.90 mg/dL (0.1-1.2) 06/27/22 20:48 AST 50 units/L (5-40) H 06/27/22 20:48 ALT 28 units/L (7-56) 06/27/22 20:48 Alkaline Phosphatase 97 units/L (35-129) 06/27/22 20:48 Troponin T 0.080 ng/mL (0.00-0.029) H 06/27/22 20:48 NT-Pro-B Natriuret Pep 4137 pg/mL (0-900) H 06/27/22 20:48 Total Protein 7.0 g/dL (6.3-8.2) 06/27/22 20:48 Albumin 3.1 g/dL (3.9-5) L 06/27/22 20:48 Albumin/Globulin Ratio 0.8 % 06/27/22 20:48 Triglycerides 349 mg/dL (2-149) H 06/27/22 20:48 Cholesterol 156 mg/dL (50-199) 06/27/22 20:48 LDL Cholesterol Direct 37 mg/dL (50-130) L 06/27/22 20:48 HDL Cholesterol 38 mg/dL (40-59) L 06/27/22 20:48 Cholesterol/HDL Ratio 4.10 % 06/27/22 20:48 Procalcitonin 2.51 ng/mL (<0.15) 06/29/22 10:47 PTH Intact 382.4 pg/mL (15-65) H 06/29/22 04:21 Urine Creatinine 85.4 mg/dL (0.1-20.0) H 06/28/22 08:10 Protein/Creatinin Ratio 0.57 06/28/22 08:10 Urine Sodium 10 mmol/L 06/28/22 08:10 Urine Total Protein 49 mg/dL (5-11.8) H 06/28/22 08:10 Microbiology: Microbiology 07/05/22 15:15 Peripheral/Venous Blood Culture - Preliminary NO GROWTH AFTER 72 HOURS 07/05/22 15:15 Peripheral/Venous Blood Culture - Preliminary NO GROWTH AFTER 72 HOURS 07/07/22 14:29 Peripheral/Venous Blood Culture - Preliminary NO GROWTH AFTER 24 HOURS 07/07/22 14:29 Peripheral/Venous Blood Culture - Preliminary NO GROWTH AFTER 24 HOURS Tian/IV: Voiding Method External Female Catheter Active Medications - Current Medications Current Medications: Generic Name Dose Route Start Last Admin Trade Name Freq PRN Reason Stop Dose Admin Acetaminophen 650 mg 06/28/22 03:09 Acetaminophen 325 Mg Tab PO Q6H PRN Pain MILD(1-3)/Fever >100.5/MURILLO Lipase/Protease/Amylase 1 each 07/05/22 11:00 Lipase 10,500/Protease 25,000/Amylase 43,750 (Units) Dr [place] FEEDTUBE PRN PRN For Clogged Feeding Tube Apixaban 5 mg 07/10/22 10:00 Apixaban 5 Mg Tab FEEDTUBE Q12HR SHANTHI Protocol Apixaban 10 mg 07/05/22 12:00 07/08/22 22:13 Apixaban 5 Mg Tab FEEDTUBE 07/09/22 22:01 10 mg Q12HR SHANTHI Administration Protocol Atorvastatin Calcium 40 mg 07/05/22 10:38 07/08/22 22:15 Atorvastatin 40 Mg Tab FEEDTUBE 40 mg QHS SHANTHI Administration Dextrose 50 ml 06/30/22 09:00 07/07/22 06:21 Dextrose 50% In Water (25gm) 50 Ml Syringe IV 50 ml Q30MIN PRN Administration Hypoglycemia Protocol Haloperidol 5 mg 07/05/22 11:00 07/08/22 22:14 Haloperidol 5 Mg Tab FEEDTUBE 5 mg BID SHANTHI Administration Hydrophilic Ointment 1 applic 07/05/22 12:00 Lip Therapy Vaseline TP Q2H PRN Dry Lips Propofol 1,000 mg in 100 mls @ 4.188 mls/hr 07/05/22 10:00 07/08/22 20:16 Diprivan 10 Mg/Ml IV 5.97 mcg/kg/min TITR SHANTHI 5 mls/hr Titration Protocol 5 MCG/KG/MIN Phenylephrine HCl 100 mg/ 250 mls @ 10.47 mls/hr 07/05/22 10:45 07/06/22 08:45 Sodium Chloride IV 0 mcg/kg/min TITRATE SHANTHI 0 mls/hr Titration Protocol 0.5 MCG/KG/MIN Sodium Chloride 500 mls @ 1 mls/hr 07/05/22 12:00 Nacl 0.9% 500 Ml IV DIRECT PRN ARTERIAL LINE FLUSH Vasopressin 20 unit/ Sodium 101 mls @ 9.09 mls/hr 07/05/22 12:00 07/06/22 08:45 Chloride IV 0 units/min TITR SHANTHI 0 mls/hr Titration Protocol 0.03 UNITS/MIN Fentanyl Citrate 1,000 mcg in 100 mls @ 2.5 mls/hr 07/05/22 14:00 07/05/22 14:41 Fentanyl Drip Premix IV 25 mcg/hr TITR SHANTHI 2.5 mls/hr Administration Protocol 25 MCG/HR Insulin Glargine 20 units 07/09/22 22:00 Insulin Glargine 100 Units/Ml SUB-Q QHS SHANTHI Insulin Human Lispro 0 unit 07/09/22 10:00 Insulin Lispro 100 Unit/Ml SUB-Q Q4HR SHANTHI Protocol Lansoprazole 30 mg 07/06/22 10:00 07/08/22 10:07 Lansoprazole 30 Mg Solutab FEEDTUBE 30 mg QDAY SHANTHI Administration Levothyroxine Sodium 112 mcg 07/05/22 12:00 07/08/22 10:08 Levothyroxine 112 Mcg Tab FEEDTUBE 112 mcg QAM SHANTHI Administration Mirtazapine 15 mg 07/07/22 22:00 07/08/22 22:15 Mirtazapine 15 Mg Solutab PO 15 mg QHS SHANTHI Administration Multi-Ingred Cream/Lotion/Oil/Oint 1 applic 07/05/22 11:00 Mineral Oil/Petrolatum, White Ophth Oint 3.5 Gm OU Q4H PRN Dry Eye(s) Nicotine 21 mg 07/04/22 15:00 07/08/22 10:09 Nicotine 21 Mg/24 Hr Patch TD 21 mg QDAY SHANTHI Administration Ondansetron HCl 4 mg 06/28/22 03:09 06/28/22 05:44 Ondansetron 4 Mg/2 Ml Inj IV 4 mg Q8H PRN Administration Nausea And Vomiting Senna/Docusate Sodium 1 tab 07/05/22 11:00 07/08/22 22:13 Sennosides/Docusate Sodium 8.6/50 Mg Tab FEEDTUBE 1 tab BID SHANTHI Administration Simple Syrup 15 ml 07/05/22 11:00 Simple Syrup 15 Ml FEEDTUBE PRN PRN Hypoglycemia Simple Syrup 30 ml 07/05/22 11:00 Simple Syrup 15 Ml FEEDTUBE PRN PRN Hypoglycemia Sodium Bicarbonate 325 mg 07/05/22 10:26 Sodium Bicarbonate 325 Mg Tab FEEDTUBE PRN PRN For Clogged Feeding Tube Sodium Chloride 10 ml 06/28/22 10:00 07/08/22 22:47 Sodium Chloride 0.9% 10 Ml Flush Syringe IV 10 ml BID SHANTHI Administration Sodium Chloride 10 ml 06/28/22 03:09 Sodium Chloride 0.9% 10 Ml Flush Syringe IV PRN PRN LINE FLUSH Valproic Acid 250 mg 07/08/22 18:00 07/09/22 06:18 Valproic Acid 250 Mg/5 Ml Oral Liqd FEEDTUBE 250 mg Q6HR SHANTHI Administration Nutrition/Malnutrition Assess - Dietary Evaluation Nutrition/Malnutrition Findings: Nutrition Notes Start: 06/28/22 11:39 Freq: Status: Active Protocol: Document 07/07/22 13:47 CHRISTAL (Rec: 07/07/22 14:11 CHRISTAL [id number]) Nutrition Notes Initial or Follow up Reassessment Current Diagnosis COPD,Diabetes,Hypertension Other Pertinent Diagnosis S/p PEA/ROSC, s/p STEFFANIE, s/p DKA , DVT s/p LE Angioplasty. Current Diet TF-Vital High Protein @ 65 ml/ hr (from D 07/05). Labs/Tests 07/07: CO2 31, BUN 21. Pertinent Medications 07/07: Levothyroxine, Propofol @ 4.188 ml/hr (111Kcal), others nutritionally unremarkable. Height 5 ft 4 in Weight 139.6 kg [place] Body Weight (kg) 54.54 BMI 52.8 Weight change and time frame No body weight change reported in 9 days. Weight Status Morbidly Obese Subjective/Other Information RD consult for TF tolerance/ continuation assessment. TF continues as prescribed, no further information on TF tolerance at the time, will assess aF/U. Pt continues on Mechanical Ventilation, O2 saturation @ 98%, and will continue off sedation, according to Physical Assessment History notes. Pt has been producing 1 BM daily no more constipation at the time, according to Physical Assessment History notes. Percent of energy/protein needs met: Prescribed TF-Vital High Protein @ 65 ml/hr provides for energy/protein needs (1, 550 Kcal/136 g) during LOS, 101% Kcal; 100% AA. Burn Absent Trauma Absent GI Symptoms None Food Allergy No Skin Integrity/Comment Bilateral LE redness/echimosis . Current % PO Other Minimum of two criteria No Fluid Accumulation N/A Reduced [employer] Strength N/A (non-severe) Protein-Calorie Malnutrition N\A #2 Nutrition Diagnosis Inadequate oral intake Diagnosis Progress(for reassessment Continues documentation) #1 Nutrition Diagnosis Overweight/obesity Diagnosis Progress(for reassessment Continues documentation) Is patient on ventilator? Yes Is Patient Ambulatory and/or Out of Bed No REE-([facility]-confined to bed) 2392.512 Kcal/Kg value to use for calculation 11 Approximate Energy Requirements Using 1536 kcal/Kg Calculation Used for Recommendations Kcal/kg Additional Notes Protein: 1.2-2 g/Kg AdjBW; 115 -196 g/day. Fluids: 1 ml/Kcal, or as per MD. Nutrition Intervention Nutrition Support: Continue TF-Vital High Protein @ 65 ml/hr. Flush: 50 ml Q 4 hr, or as per MD. Kcal 1,550 Protein (gm) 136 Carbohydrates (gm) 174 Fat (gm) 36 Fluid (mL) 1,296 Fiber (gm) 0 % RDI: 101% Kcal; 100% AA. Goal #1 Provide at least 75% of energy /protein needs through Enteral Feeding during LOS. Follow-Up By: 07/13/22 Additional Comments Start monitoring TF tolerance, ventilation status, and BM.
[2022-07-09] MEDS: LEVOTHYROXINE 112 MCG TAB FEEDTUBE SCH (10:56)
[2022-07-09] MEDS: LANSOPRAZOLE 30 MG SOLUTAB FEEDTUBE SCH (10:56)
[2022-07-09] MEDS: HALOPERIDOL 5 MG TAB FEEDTUBE SCH ×2 (10:56→21:45)
[2022-07-09] MEDS: NICOTINE 21 MG/24 HR PATCH TD SCH (10:56)
[2022-07-09] MEDS: APIXABAN 5 MG TAB FEEDTUBE SCH ×2 (10:56→21:45)
[2022-07-09] MEDS: SENNOSIDES/DOCUSATE SODIUM 8.6/50 MG TAB FEEDTUBE SCH ×2 (10:56→21:45)
--- NOTE | 2022-07-09 11:12 | Progress Note ---
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 With history of recent extensive venous thromboembolism, most likely etiology to pursue is acute pulmonary embolism, in addition to other pulmonary etiologies such as sleep apnea, pulmonary atelectasis. Unlikely primary cardiac event. Defer to internal medicine and pulmonary for work-up of pulmonary causes of acute respiratory failure. Echocardiogram shows normal left ventricular chamber size and systolic function with ejection fraction 60 to 65%. Conversely, there is moderate dilatation of the right heart chambers, with normal pulmonary artery pressure. Vascular assessment regarding the episode of apnea/ respiratory failure, etiology is still uncertain. However, it will be noted that the CT angiogram was done on 07/07, a full 2 days following the acute apneic episode. Could an immediate angiogram have a better likelihood of detecting a proximal pulmonary thrombus before possible distal embolization. (2) Paroxysmal atrial fibrillation Current Visit: Yes Status: Acute Plan to address problem: Patient has paroxysmal atrial fibrillation, with underlying right bundle branch block, findings are chronic. She is on long-term anticoagulation with Eliquis for her venous thromboembolism. Patient is currently in a stable sinus rhythm. Continue current management. Subjective Date of service: 07/09/22 Principal diagnosis: AHRF; DKA; Hyperkalemia; COPD; ? cellulitis; PVD; STEFFANIE; Morbid obesity; ?JACKLYN Interval history: Patient is on the vent, no acute distress. No new cardiac events reported. Objective Vital Signs Temp Pulse Pulse Pulse Pulse Resp BP 07/09/22 08:00 66 67 66 66 19 146/69 07/09/22 07:25 99.5 F 07/09/22 07:00 59 L 13 139/69 07/09/22 06:00 70 19 139/69 07/09/22 05:00 67 14 127/69 07/09/22 04:25 71 11 L 139/76 07/09/22 04:00 70 98 H 19 153/74 07/09/22 03:35 99.4 F 07/09/22 03:00 74 22 139/68 07/09/22 02:00 72 19 139/68 07/09/22 01:00 71 16 133/68 07/09/22 00:41 99.2 F 07/09/22 00:00 77 92 H 20 133/68 07/08/22 23:50 76 10 L 114/69 07/08/22 23:00 73 19 114/69 07/08/22 22:48 75 21 125/70 07/08/22 22:00 75 23 125/70 07/08/22 21:00 81 33 H 128/71 07/08/22 20:55 07/08/22 20:50 77 28 H 115/57 07/08/22 20:00 88 88 18 145/73 07/08/22 19:45 99.8 F H 07/08/22 19:00 85 28 H 141/76 07/08/22 18:00 84 36 H 141/76 07/08/22 17:00 78 25 H 137/64 07/08/22 16:30 79 26 H 131/63 07/08/22 16:24 99.8 F H 07/08/22 16:00 83 83 28 H 131/63 07/08/22 15:00 81 28 H 133/65 07/08/22 14:00 83 27 H 124/64 07/08/22 13:00 82 27 H 128/63 07/08/22 12:12 100.0 F H 07/08/22 12:00 77 87 24 126/62 Pulse Ox 07/09/22 08:00 96 07/09/22 07:25 07/09/22 07:00 94 07/09/22 06:00 95 07/09/22 05:00 95 07/09/22 04:25 95 07/09/22 04:00 95 07/09/22 03:35 07/09/22 03:00 94 07/09/22 02:00 95 07/09/22 01:00 96 07/09/22 00:41 07/09/22 00:00 96 07/08/22 23:50 95 07/08/22 23:00 95 07/08/22 22:48 96 07/08/22 22:00 95 07/08/22 21:00 87 07/08/22 20:55 95 07/08/22 20:50 94 07/08/22 20:00 96 07/08/22 19:45 07/08/22 19:00 94 07/08/22 18:00 100 07/08/22 17:00 96 07/08/22 16:30 96 07/08/22 16:24 07/08/22 16:00 96 07/08/22 15:00 95 07/08/22 14:00 95 07/08/22 13:00 94 07/08/22 12:12 07/08/22 12:00 93 - Physical Examination General: Other (Awake, on the vent) HEENT: Positive: PERRL Neck: Positive: neck supple Cardiac: Positive: Reg Rate and Rhythm Lungs: Positive: Decreased Breath Sounds Neuro: Positive: Grossly Intact Abdomen: Positive: Soft Skin: Positive: Clear Extremities: Absent: edema - Labs and Meds CBC 07/09/22 Range/Units 04:00 WBC 6.8 (4.5-11.0) K/mm3 RBC 3.30 L (3.65-5.03) M/mm3 Hgb 9.9 L (10.1-14.3) gm/dl Hct 30.7 (30.3-42.9) % Plt Count 187 (140-440) K/mm3 Comprehensive Metabolic Panel 07/09/22 Range/Units 04:00 Sodium 146 H (137-145) mmol/L Potassium 4.6 (3.6-5.0) mmol/L Chloride 105.1 (98-107) mmol/L Carbon Dioxide 30 (22-30) mmol/L BUN 36 H (7-17) mg/dL Creatinine 1.0 (0.6-1.2) mg/dL Glucose 365 H (65-100) mg/dL Calcium 9.3 (8.4-10.2) mg/dL - Allied health notes Allied health notes reviewed: RT
[2022-07-09] MEDS ORDERED: METOPROLOL TARTRATE 5 MG/5 ML INJ IV SCH (11:26)
[2022-07-09 11:45] LABS: ABG Base Excess 4.6 mmol/L (-2.0-3.0); ABG HCO3 31.4 mmol/L (20.0-26.0); ABG Methemoglobin 0.4 % (0.0-1.5); ABG Oxygen Saturation 95.2 % (95.0-99.0); ABG PCO2 57.9 mm Hg; ABG PH 7.352 pH Units (7.350-7.450)
--- NOTE | 2022-07-09 16:34 | Progress Note ---
Assessment and Plan 1. Acute kidney injury: Suspect vasomotor STEFFANIE in the setting of DKA/volume depletion. Renal US negative for hydro/stone. Monitor renal function. Creatinine leveled off. Avoid nephrotoxic agents. Meds dosage based on GFR. 2. FEN: Hyperkalemia, improved. Anion-gap Metabolic acidosis, 2/2 DKA, improved, monitor. Replete lytes as needed. Monitor lytes and volume status. 3. S/p Cardiac arrest 07/05: Currently in ICU. Followed by Cards. 4. Resp failure: S/p exubated. On NC O2. 5. A.fib with RVR: SR now. Followed by Cards. 6. DKA: Admits to stop taking meds at home. S/p Insulin drip. Improved. Monitor. 7. Acute DVT involving the external iliac veins bilaterally with thrombus extending distally bilaterally: S/p LE angioplsty Followed by Vascular. 8. Hyotension: Off pressors. Monitor BP. 9. H/o COPD. Will see patient as needed. Subjective: Patient was seen and examined at the bedside. Examination: General appearance: well-developed, obese, appears stated age, on NC O2 HEENT: atraumatic, no icterus Neck: trachea midline Respiratory: diminished breath sounds heard Heart: S1S2, regular, no murmur Abdomen: soft, obese, bowel sounds heard, NT Integumentary: LE dressing noted Neurologic: lethargic Ext: trace Ext and dependent edema Subjective Date of service: 07/09/22 Principal diagnosis: AHRF; DKA; Hyperkalemia; COPD; ? cellulitis; PVD; STEFFANIE; Morbid obesity; ?JACKLYN Objective - Vital Signs Vital signs: Vital Signs - 12hr 07/09/22 07/09/22 07/09/22 05:00 06:00 07:00 Temperature Pulse Rate 67 70 59 L Pulse Rate [ From Monitor] Pulse Rate [ Left Dorsalis Pedis] Pulse Rate [ Right Dorsalis Pedis] Respiratory 14 19 13 Rate Blood Pressure 127/69 139/69 139/69 O2 Sat by Pulse 95 95 94 Oximetry 07/09/22 07/09/22 07/09/22 07:25 08:00 09:00 Temperature 99.5 F Pulse Rate 66 72 Pulse Rate [ 67 From Monitor] Pulse Rate [ 66 Left Dorsalis Pedis] Pulse Rate [ 66 Right Dorsalis Pedis] Respiratory 19 24 Rate Blood Pressure 146/69 157/74 O2 Sat by Pulse 96 94 Oximetry 07/09/22 07/09/22 07/09/22 10:00 11:00 11:29 Temperature 98.0 F Pulse Rate 73 142 H Pulse Rate [ From Monitor] Pulse Rate [ Left Dorsalis Pedis] Pulse Rate [ Right Dorsalis Pedis] Respiratory 27 H 31 H Rate Blood Pressure 157/74 160/66 O2 Sat by Pulse 96 94 Oximetry 07/09/22 07/09/22 07/09/22 11:56 12:00 13:00 Temperature Pulse Rate 142 H 136 H 70 Pulse Rate [ 136 H From Monitor] Pulse Rate [ Left Dorsalis Pedis] Pulse Rate [ Right Dorsalis Pedis] Respiratory 27 H 24 Rate Blood Pressure 124/78 124/78 109/57 O2 Sat by Pulse 96 97 Oximetry 07/09/22 14:54 Temperature Pulse Rate Pulse Rate [ From Monitor] Pulse Rate [ Left Dorsalis Pedis] Pulse Rate [ Right Dorsalis Pedis] Respiratory Rate Blood Pressure O2 Sat by Pulse 98 Oximetry - Lab 07/09/22 04:00 07/09/22 04:00 Most recent lab results ABG pH 7.352 pH Units (7.350-7.450) 07/09/22 11:35 ABG pCO2 57.9 mm Hg 07/09/22 11:35 ABG pO2 74.0 mm Hg (80.0-90.0) L 07/09/22 11:35 ABG HCO3 31.4 mmol/L (20.0-26.0) H 07/09/22 11:35 ABG O2 Saturation 95.2 % (95.0-99.0) 07/09/22 11:35 Calcium 9.3 mg/dL (8.4-10.2) 07/09/22 04:00 Phosphorus 2.10 mg/dL (2.5-4.5) L D 07/02/22 08:12 Magnesium 2.00 mg/dL (1.7-2.3) 07/05/22 Unknown Urine Creatinine 85.4 mg/dL (0.1-20.0) H 06/28/22 08:10 Urine Sodium 10 mmol/L 06/28/22 08:10 Urine Total Protein 49 mg/dL (5-11.8) H 06/28/22 08:10 Medications & Allergies - Medications Allergies/Adverse Reactions: Allergies ciprofloxacin [From Cipro] Allergy (Verified 05/28/22 12:07) Unknown Penicillins Allergy (Verified 05/28/22 12:07) Unknown Home Medications: Home Medications Medication Instructions Recorded Confirmed Last Taken Type Apixaban [Eliquis] 5 mg PO BID 04/13/21 06/28/22 Unknown History Empagliflozin [Jardiance] 25 mg DAILY 04/13/21 06/28/22 Unknown History Fenofibrate 160 mg PO DAILY 04/13/21 06/28/22 Unknown History Glimepiride 4 mg BID 04/13/21 06/28/22 Unknown History Insulin Aspart (Nf) [NovoLOG 100 unit SQ PRN PRN 04/13/21 06/28/22 Unknown Histo ry Flexpen] Levothyroxine [Synthroid] 112 mcg PO QAM 04/13/21 06/28/22 Unknown History Lisinopril/Hydrochlorothiazide 1 tab PO QDAY 04/13/21 06/28/22 Unknown History [Zestoretic 20-12.5 mg] [place] Carbonate 600 mg PO QHS 04/13/21 06/28/22 Unknown History [place] Carbonate [Eskalith] 150 mg PO QAM 04/13/21 06/28/22 Unknown History Lurasidone [Latuda] 40 mg QHS 04/13/21 06/28/22 Unknown History Oxybutynin Chloride [Ditropan Xl] 15 mg PO QDAY 04/13/21 06/28/22 Unknown Histo ry Semaglutide [Ozempic] 1 unit SQ 1XW 04/13/21 06/28/22 Unknown History Venlafaxine HCl [Venlafaxine HCl 150 mg DAILY 04/13/21 06/28/22 Unknown History ER] buPROPion SR [Wellbutrin SR] 100 mg PO DAILY 04/13/21 06/28/22 Unknown History Doxycycline Hyclate [Doxycycline 100 mg PO Q12HR 7 Days #14 04/14/21 06/28/22 Unknown Rx Hyclate TAB] Active Medications: Generic Name Dose Route Start Last Admin Trade Name Freq PRN Reason Stop Dose Admin Acetaminophen 650 mg 06/28/22 03:09 Acetaminophen 325 Mg Tab PO Q6H PRN Pain MILD(1-3)/Fever >100.5/MURILLO Lipase/Protease/Amylase 1 each 07/05/22 11:00 Lipase 10,500/Protease 25,000/Amylase 43,750 (Units) Dr [place] FEEDTUBE PRN PRN For Clogged Feeding Tube Apixaban 5 mg 07/10/22 10:00 Apixaban 5 Mg Tab FEEDTUBE Q12HR SHANTHI Protocol Apixaban 10 mg 07/05/22 12:00 07/09/22 10:56 Apixaban 5 Mg Tab FEEDTUBE 07/09/22 22:01 10 mg Q12HR SHANTHI Administration Protocol Atorvastatin Calcium 40 mg 07/05/22 10:38 07/08/22 22:15 Atorvastatin 40 Mg Tab FEEDTUBE 40 mg QHS SHANTHI Administration Dextrose 50 ml 06/30/22 09:00 07/07/22 06:21 Dextrose 50% In Water (25gm) 50 Ml Syringe IV 50 ml Q30MIN PRN Administration Hypoglycemia Protocol Haloperidol 5 mg 07/05/22 11:00 07/09/22 10:56 Haloperidol 5 Mg Tab FEEDTUBE 5 mg BID SHANTHI Administration Hydrophilic Ointment 1 applic 07/05/22 12:00 Lip Therapy Vaseline TP Q2H PRN Dry Lips Propofol 1,000 mg in 100 mls @ 4.188 mls/hr 07/05/22 10:00 07/08/22 20:16 Diprivan 10 Mg/Ml IV 5.97 mcg/kg/min TITR SHANTHI 5 mls/hr Titration Protocol 5 MCG/KG/MIN Insulin Glargine 20 units 07/09/22 22:00 Insulin Glargine 100 Units/Ml SUB-Q QHS SHANTHI Insulin Human Lispro 0 unit 07/09/22 10:00 07/09/22 16:30 Insulin Lispro 100 Unit/Ml SUB-Q 6 unit Q4HR SHANTHI Administration Protocol Lansoprazole 30 mg 07/06/22 10:00 07/09/22 10:56 Lansoprazole 30 Mg Solutab FEEDTUBE 30 mg QDAY SHANTHI Administration Levothyroxine Sodium 112 mcg 07/05/22 12:00 07/09/22 10:56 Levothyroxine 112 Mcg Tab FEEDTUBE 112 mcg QAM SHANTHI Administration Metoprolol Tartrate 2.5 mg 07/09/22 11:26 07/09/22 11:56 Metoprolol Tartrate 5 Mg/5 Ml Inj IV 2.5 mg ONCE SHANTHI Administration Mirtazapine 15 mg 07/07/22 22:00 07/08/22 22:15 Mirtazapine 15 Mg Solutab PO 15 mg QHS SHANTHI Administration Multi-Ingred Cream/Lotion/Oil/Oint 1 applic 07/05/22 11:00 Mineral Oil/Petrolatum, White Ophth Oint 3.5 Gm OU Q4H PRN Dry Eye(s) Nicotine 21 mg 07/04/22 15:00 07/09/22 10:56 Nicotine 21 Mg/24 Hr Patch TD 21 mg QDAY SHANTHI Administration Ondansetron HCl 4 mg 06/28/22 03:09 06/28/22 05:44 Ondansetron 4 Mg/2 Ml Inj IV 4 mg Q8H PRN Administration Nausea And Vomiting Senna/Docusate Sodium 1 tab 07/05/22 11:00 07/09/22 10:56 Sennosides/Docusate Sodium 8.6/50 Mg Tab FEEDTUBE 1 tab BID SHANTHI Administration Simple Syrup 15 ml 07/05/22 11:00 Simple Syrup 15 Ml FEEDTUBE PRN PRN Hypoglycemia Simple Syrup 30 ml 07/05/22 11:00 Simple Syrup 15 Ml FEEDTUBE PRN PRN Hypoglycemia Sodium Bicarbonate 325 mg 07/05/22 10:26 Sodium Bicarbonate 325 Mg Tab FEEDTUBE PRN PRN For Clogged Feeding Tube Sodium Chloride 10 ml 06/28/22 10:00 07/08/22 22:47 Sodium Chloride 0.9% 10 Ml Flush Syringe IV 10 ml BID SHANTHI Administration Sodium Chloride 10 ml 06/28/22 03:09 Sodium Chloride 0.9% 10 Ml Flush Syringe IV PRN PRN LINE FLUSH Valproic Acid 250 mg 07/08/22 18:00 07/09/22 13:00 Valproic Acid 250 Mg/5 Ml Oral Liqd FEEDTUBE 250 mg Q6HR SHANTHI Administration
--- NOTE | 2022-07-09 17:13 | Electrocardiograph Report ---
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
[2022-07-09] MEDS: MIRTAZAPINE 15 MG SOLUTAB PO SCH (22:00)
[2022-07-09] MEDS ORDERED: INSULIN GLARGINE 100 UNITS/ML SUB-Q SCH (22:00)
[2022-07-10] MEDS: INSULIN LISPRO 100 UNIT/ML SUB-Q SCH ×7 (03:19→22:33)
[2022-07-10 05:05] LABS: Hematocrit 33.3 % (30.3-42.9); Hemoglobin 10.6 gm/dl (10.1-14.3); Mean Corpuscular HGB Conc 32 % (30-34); Mean Corpuscular Volume 94 fl (79-97); Platelet Count 191 K/mm3 (140-440); Red Blood Count 3.55 M/mm3 (3.65-5.03); Red Cell Distribution Width 14.9 % (13.2-15.2)
[2022-07-10 05:20] LABS: Alanine Aminotransferase 30 units/L (7-56); Albumin 2.9 g/dL (3.9-5); BUN/Creatinine Ratio 34; Blood Urea Nitrogen 31 mg/dL (7-17); Calcium 9.7 mg/dL (8.4-10.2); Hemolysis Index 1
[2022-07-10] MEDS: VALPROIC ACID 250 MG/5 ML ORAL LIQD FEEDTUBE SCH ×5 (06:01→23:11)
--- NOTE | 2022-07-10 09:32 | Progress Note ---
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 Non-insulin dependent type II diabetes mellitus with hyperglycemia Hypertension Hyperlipidemia Hypothyroidism H/O COPD Bipolar Disorder Tobacco use disorder/Nicotine dependence Morbid obesity Hypernatremia SBT, get weaning parameters. If appropriate and acceptable, will plan to liberate from MVS Will need BIPAP support at night, she probably has undiagnosed and untreated JACKLYN Intermittent diuretic therapy, keep negative balance as tolerated by renal function and hemodynamics Treat hypernatremia- increase free water flushes. Adjust insulin therapy for better glycemic control -Titrate supplemental oxygen to keep SpO2 89-92% -VAP bundle addressed, aspiration precautions HOB>30 -Stress ulcer prophylaxis- Famotidine -VTE prophylaxis-on therapeutic Apixaban -Titrate Propofol to keep RASS 0 to -1 -Prn Fentanyl for analgesia, titrate to CPOT >3 -Daily SBT and SAT trials as tolerated, daily assessment for readiness to wean -ABG and CXR as clinically indicated -Enteric nutrition support, tube feeding -Mobility, off loading and frequent turning per facility protocol to prevent pressure ulcers -Trend temperature curve and WCC -Maintain euglycemia. Keep blood glucose 140-180mg/dL while critically ill. Avoid hypoglycemia -Monitor hemodynamics closely -Supportive transfusions as clinically indicated to keep HgB >7g/dL -Continue Nicotine patch and nicotine withdrawal precautions -Avoid nephrotxins, recent recovery from STEFFANIE/ATN -PICC for vasoactive drug administration Discussed with respiratory care, nursing care CONDITION: CRITICAL PROGNOSIS: GUARDED CODE STATUS: FULL CODE The high probability of a clinically significant, sudden or life threatening deterioration of the [multiple] system(s) required my full and direct attention, intervention and personal management. The aggregate critical care time was [35] minutes. This time is in addition to time spent performing reported procedures but includes the following: [x] Data Review and interpretation [x] Patient assessment and monitoring of vital signs [x] Documentation [x] Medication orders and management Subjective Date of service: 07/10/22 Principal diagnosis: AHRF; DKA; Hyperkalemia; COPD; ? cellulitis; PVD; STEFFANIE; Morbid obesity; ?JACKLYN Interval history: Patient is seen today for: Acute hypoxemic respiratory failure; DKA; Hyperkalemia; COPD; Possible cellulitis; PVD; STEFFANIE; Morbid obesity Seen and examined at bedside; 24hour events reviewed; nursing and respiratory care staff consulted; no adverse overnight events reported to me; s/p cardiac ar rest ,asystole with ROSC. Intubated on MVS Awake and appropriate, following commands. Tolerating SBT, No fevers, no vomiting Hyperglycemic, Repeat BLE doppler noted, no evidence of DVT, positive acute superficial thrombosis in BLE. Objective Vital Signs - 12hr 07/09/22 07/09/22 07/09/22 22:00 23:00 23:04 Temperature Pulse Rate 77 78 79 Pulse Rate [ From Monitor] Respiratory 25 H 27 H 28 H Rate Blood Pressure 135/67 147/68 147/68 O2 Sat by Pulse 97 98 96 Oximetry 07/10/22 07/10/22 07/10/22 00:00 00:59 01:00 Temperature 97.6 F Pulse Rate 78 77 Pulse Rate [ 78 From Monitor] Respiratory 27 H 26 H Rate Blood Pressure 157/68 155/69 O2 Sat by Pulse 97 94 Oximetry 07/10/22 07/10/22 07/10/22 02:00 03:00 04:00 Temperature Pulse Rate 78 75 74 Pulse Rate [ 74 From Monitor] Respiratory 29 H 29 H 28 H Rate Blood Pressure 155/69 130/59 125/66 O2 Sat by Pulse 97 95 96 Oximetry 07/10/22 07/10/22 07/10/22 05:00 06:00 07:00 Temperature Pulse Rate 71 73 68 Pulse Rate [ From Monitor] Respiratory 28 H 21 26 H Rate Blood Pressure 131/62 141/69 130/62 O2 Sat by Pulse 98 94 99 Oximetry 07/10/22 07/10/22 07/10/22 07:59 08:00 09:00 Temperature 98.1 F Pulse Rate 69 77 Pulse Rate [ 69 From Monitor] Respiratory 28 H 31 H Rate Blood Pressure 135/63 135/63 O2 Sat by Pulse 94 89 Oximetry Constitutional: no acute distress, alert, other (orally intubated) Eyes: non-icteric ENT: oropharynx moist Neck: supple, no lymphadenopathy, no JVD, other (large circumference) Effort: normal Ascultation: Bilateral: clear, diminished breath sounds Percussion: Bilateral: not dull Cardiovascular: regular rate and rhythm, other (S1S2) Gastrointestinal: normoactive bowel sounds, non-tender, tender, non-distended Integumentary: rash (shins), other (erythema to shins) Extremities: no cyanosis, pink and warm, no ischemia or petechiae, edema (trace to 1+) Neurologic: non-focal exam (grossly), pupils equal and round Psychiatric: mood appropriate, affect normal CBC and BMP: 07/10/22 04:21 07/10/22 04:21 ABG, PT/INR, D-dimer: ABG ABG pH 7.352 pH Units (7.350-7.450) 07/09/22 11:35 ABG pCO2 57.9 mm Hg 07/09/22 11:35 ABG pO2 74.0 mm Hg (80.0-90.0) L 07/09/22 11:35 ABG O2 Saturation 95.2 % (95.0-99.0) 07/09/22 11:35 PT/INR, D-dimer PT 17.3 Sec. (12.2-14.9) H 07/02/22 20:28 INR 1.26 (0.87-1.13) H 07/02/22 20:28 Abnormal lab findings: Abnormal Labs 06/27/22 06/27/22 06/27/22 20:48 20:48 23:56 WBC 18.7 H RBC Hgb 15.1 H Hct 47.1 H Plt Count Lymph % (Auto) 6.3 L [place] % (Auto) Lymph # (Auto) [place] # (Auto) 0.9 H Seg Neutrophils % 88.6 H Seg Neuts % (Manual) Lymphocytes % (Manual) Seg Neutrophils # 16.5 H Seg Neutrophils # Man Lymphocytes # (Manual) PT INR APTT Heparin Anti-Xa Level ABG pH ABG pO2 ABG HCO3 ABG O2 Saturation ABG Base Excess ABG Hemoglobin Oxyhemoglobin Sodium 123 L 121 L Potassium 6.9 H* 6.4 H* Chloride 82.4 L 79.7 L Carbon Dioxide 7 L* 8 L* BUN 50 H 54 H Creatinine 2.2 H 2.5 H Glucose 578 H* 562 H* POC Glucose Hemoglobin A1c Calcium Phosphorus 10.40 H Magnesium 2.70 H 2.60 H AST 50 H Troponin T 0.080 H NT-Pro-B Natriuret Pep 4137 H Total Protein Albumin 3.1 L Triglycerides 349 H LDL Cholesterol Direct 37 L HDL Cholesterol 38 L PTH Intact Urine Creatinine Urine Total Protein 06/28/22 06/28/22 06/28/22 01:45 03:17 03:35 WBC RBC Hgb Hct Plt Count Lymph % (Auto) [place] % (Auto) Lymph # (Auto) [place] # (Auto) Seg Neutrophils % Seg Neuts % (Manual) Lymphocytes % (Manual) Seg Neutrophils # Seg Neutrophils # Man Lymphocytes # (Manual) PT INR APTT Heparin Anti-Xa Level ABG pH ABG pO2 ABG HCO3 ABG O2 Saturation ABG Base Excess ABG Hemoglobin Oxyhemoglobin Sodium 120 L 121 L Potassium 6.2 H* 5.4 H Chloride 79.1 L 84.7 L Carbon Dioxide 7 L* 7 L* BUN 55 H 57 H Creatinine 2.6 H 2.6 H Glucose 551 H* 486 H POC Glucose 568 H Hemoglobin A1c Calcium 8.1 L 7.7 L Phosphorus Magnesium AST Troponin T NT-Pro-B Natriuret Pep Total Protein Albumin Triglycerides LDL Cholesterol Direct HDL Cholesterol PTH Intact Urine Creatinine Urine Total Protein 06/28/22 06/28/22 06/28/22 03:35 04:05 05:13 WBC RBC Hgb Hct Plt Count Lymph % (Auto) [place] % (Auto) Lymph # (Auto) [place] # (Auto) Seg Neutrophils % Seg Neuts % (Manual) Lymphocytes % (Manual) Seg Neutrophils # Seg Neutrophils # Man Lymphocytes # (Manual) PT INR APTT Heparin Anti-Xa Level ABG pH ABG pO2 ABG HCO3 ABG O2 Saturation ABG Base Excess ABG Hemoglobin Oxyhemoglobin Sodium Potassium Chloride Carbon Dioxide BUN Creatinine Glucose POC Glucose 508 H 443 H Hemoglobin A1c Calcium Phosphorus 9.20 H Magnesium AST Troponin T NT-Pro-B Natriuret Pep Total Protein Albumin Triglycerides LDL Cholesterol Direct HDL Cholesterol PTH Intact Urine Creatinine Urine Total Protein 06/28/22 06/28/22 06/28/22 05:40 06:30 07:39 WBC RBC Hgb Hct Plt Count Lymph % (Auto) [place] % (Auto) Lymph # (Auto) [place] # (Auto) Seg Neutrophils % Seg Neuts % (Manual) Lymphocytes % (Manual) Seg Neutrophils # Seg Neutrophils # Man Lymphocytes # (Manual) PT INR APTT Heparin Anti-Xa Level ABG pH ABG pO2 ABG HCO3 ABG O2 Saturation ABG Base Excess ABG Hemoglobin Oxyhemoglobin Sodium 124 L Potassium 5.1 H Chloride 86.5 L Carbon Dioxide 13 L BUN 59 H Creatinine 2.6 H Glucose 396 H POC Glucose 419 H 377 H Hemoglobin A1c Calcium 8.0 L Phosphorus Magnesium AST Troponin T NT-Pro-B Natriuret Pep Total Protein Albumin Triglycerides LDL Cholesterol Direct HDL Cholesterol PTH Intact Urine Creatinine Urine Total Protein 06/28/22 06/28/22 06/28/22 08:10 08:18 09:32 WBC RBC Hgb Hct Plt Count Lymph % (Auto) [place] % (Auto) Lymph # (Auto) [place] # (Auto) Seg Neutrophils % Seg Neuts % (Manual) Lymphocytes % (Manual) Seg Neutrophils # Seg Neutrophils # Man Lymphocytes # (Manual) PT INR APTT Heparin Anti-Xa Level ABG pH ABG pO2 ABG HCO3 ABG O2 Saturation ABG Base Excess ABG Hemoglobin Oxyhemoglobin Sodium Potassium Chloride Carbon Dioxide BUN Creatinine Glucose POC Glucose 390 H 347 H Hemoglobin A1c Calcium Phosphorus Magnesium AST Troponin T NT-Pro-B Natriuret Pep Total Protein Albumin Triglycerides LDL Cholesterol Direct HDL Cholesterol PTH Intact Urine Creatinine 85.4 H Urine Total Protein 49 H 06/28/22 06/28/22 06/28/22 10:46 11:40 12:40 WBC RBC Hgb Hct Plt Count Lymph % (Auto) [place] % (Auto) Lymph # (Auto) [place] # (Auto) Seg Neutrophils % Seg Neuts % (Manual) Lymphocytes % (Manual) Seg Neutrophils # Seg Neutrophils # Man Lymphocytes # (Manual) PT INR APTT Heparin Anti-Xa Level ABG pH ABG pO2 ABG HCO3 ABG O2 Saturation ABG Base Excess ABG Hemoglobin Oxyhemoglobin Sodium Potassium Chloride Carbon Dioxide BUN Creatinine Glucose POC Glucose 313 H 274 H 258 H Hemoglobin A1c Calcium Phosphorus Magnesium AST Troponin T NT-Pro-B Natriuret Pep Total Protein Albumin Triglycerides LDL Cholesterol Direct HDL Cholesterol PTH Intact Urine Creatinine Urine Total Protein 06/28/22 06/28/22 06/28/22 13:38 14:13 14:13 WBC 19.7 H RBC 5.33 H Hgb 16.2 H Hct 49.4 H Plt Count Lymph % (Auto) [place] % (Auto) Lymph # (Auto) [place] # (Auto) Seg Neutrophils % Seg Neuts % (Manual) Lymphocytes % (Manual) Seg Neutrophils # Seg Neutrophils # Man Lymphocytes # (Manual) PT INR APTT Heparin Anti-Xa Level ABG pH ABG pO2 ABG HCO3 ABG O2 Saturation ABG Base Excess ABG Hemoglobin Oxyhemoglobin Sodium 125 L Potassium 5.4 H Chloride 87.6 L Carbon Dioxide 18 L BUN 58 H Creatinine 2.5 H Glucose 199 H POC Glucose 205 H Hemoglobin A1c Calcium Phosphorus 6.90 H D Magnesium AST Troponin T NT-Pro-B Natriuret Pep Total Protein Albumin Triglycerides LDL Cholesterol Direct HDL Cholesterol PTH Intact Urine Creatinine Urine Total Protein 06/28/22 06/28/22 06/28/22 14:56 15:07 15:07 WBC RBC Hgb 15.5 H Hct 46.8 H Plt Count Lymph % (Auto) [place] % (Auto) Lymph # (Auto) [place] # (Auto) Seg Neutrophils % Seg Neuts % (Manual) Lymphocytes % (Manual) Seg Neutrophils # Seg Neutrophils # Man Lymphocytes # (Manual) PT INR APTT Heparin Anti-Xa Level ABG pH ABG pO2 ABG HCO3 ABG O2 Saturation ABG Base Excess ABG Hemoglobin Oxyhemoglobin Sodium 128 L Potassium 5.3 H Chloride 94.0 L Carbon Dioxide 14 L BUN 59 H Creatinine 2.4 H Glucose 183 H POC Glucose 194 H Hemoglobin A1c Calcium 7.8 L Phosphorus Magnesium AST Troponin T NT-Pro-B Natriuret Pep Total Protein Albumin Triglycerides LDL Cholesterol Direct HDL Cholesterol PTH Intact Urine Creatinine Urine Total Protein 06/28/22 06/28/22 06/28/22 15:07 15:54 17:10 WBC RBC Hgb Hct Plt Count Lymph % (Auto) [place] % (Auto) Lymph # (Auto) [place] # (Auto) Seg Neutrophils % Seg Neuts % (Manual) Lymphocytes % (Manual) Seg Neutrophils # Seg Neutrophils # Man Lymphocytes # (Manual) PT 19.6 H INR 1.47 H APTT Heparin Anti-Xa Level ABG pH ABG pO2 ABG HCO3 ABG O2 Saturation ABG Base Excess ABG Hemoglobin Oxyhemoglobin Sodium Potassium Chloride Carbon Dioxide BUN Creatinine Glucose POC Glucose 189 H 216 H Hemoglobin A1c Calcium Phosphorus Magnesium AST Troponin T NT-Pro-B Natriuret Pep Total Protein Albumin Triglycerides LDL Cholesterol Direct HDL Cholesterol PTH Intact Urine Creatinine Urine Total Protein 06/28/22 06/28/22 06/28/22 17:59 18:54 19:49 WBC RBC Hgb Hct Plt Count Lymph % (Auto) [place] % (Auto) Lymph # (Auto) [place] # (Auto) Seg Neutrophils % Seg Neuts % (Manual) Lymphocytes % (Manual) Seg Neutrophils # Seg Neutrophils # Man Lymphocytes # (Manual) PT INR APTT Heparin Anti-Xa Level ABG pH ABG pO2 ABG HCO3 ABG O2 Saturation ABG Base Excess ABG Hemoglobin Oxyhemoglobin Sodium Potassium Chloride Carbon Dioxide BUN Creatinine Glucose POC Glucose 195 H 178 H 166 H Hemoglobin A1c Calcium Phosphorus Magnesium AST Troponin T NT-Pro-B Natriuret Pep Total Protein Albumin Triglycerides LDL Cholesterol Direct HDL Cholesterol PTH Intact Urine Creatinine Urine Total Protein 06/28/22 06/28/22 06/28/22 20:31 20:31 20:31 WBC RBC Hgb Hct Plt Count Lymph % (Auto) [place] % (Auto) Lymph # (Auto) [place] # (Auto) Seg Neutrophils % Seg Neuts % (Manual) Lymphocytes % (Manual) Seg Neutrophils # Seg Neutrophils # Man Lymphocytes # (Manual) PT INR APTT Heparin Anti-Xa Level 0.19 L ABG pH ABG pO2 ABG HCO3 ABG O2 Saturation ABG Base Excess ABG Hemoglobin Oxyhemoglobin Sodium 129 L Potassium 5.1 H Chloride 95.6 L Carbon Dioxide 15 L BUN 59 H Creatinine 2.4 H Glucose 145 H POC Glucose Hemoglobin A1c 9.7 H Calcium 8.0 L Phosphorus 6.40 H Magnesium AST Troponin T NT-Pro-B Natriuret Pep Total Protein Albumin Triglycerides LDL Cholesterol Direct HDL Cholesterol PTH Intact Urine Creatinine Urine Total Protein 06/28/22 06/28/22 06/28/22 21:27 22:22 23:36 WBC RBC Hgb Hct Plt Count Lymph % (Auto) [place] % (Auto) Lymph # (Auto) [place] # (Auto) Seg Neutrophils % Seg Neuts % (Manual) Lymphocytes % (Manual) Seg Neutrophils # Seg Neutrophils # Man Lymphocytes # (Manual) PT INR APTT Heparin Anti-Xa Level ABG pH ABG pO2 ABG HCO3 ABG O2 Saturation ABG Base Excess ABG Hemoglobin Oxyhemoglobin Sodium Potassium Chloride Carbon Dioxide BUN Creatinine Glucose POC Glucose 131 H 148 H 146 H Hemoglobin A1c Calcium Phosphorus Magnesium AST Troponin T NT-Pro-B Natriuret Pep Total Protein Albumin Triglycerides LDL Cholesterol Direct HDL Cholesterol PTH Intact Urine Creatinine Urine Total Protein 06/29/22 06/29/22 06/29/22 00:21 01:27 02:54 WBC RBC Hgb Hct Plt Count Lymph % (Auto) [place] % (Auto) Lymph # (Auto) [place] # (Auto) Seg Neutrophils % Seg Neuts % (Manual) Lymphocytes % (Manual) Seg Neutrophils # Seg Neutrophils # Man Lymphocytes # (Manual) PT INR APTT Heparin Anti-Xa Level ABG pH ABG pO2 ABG HCO3 ABG O2 Saturation ABG Base Excess ABG Hemoglobin Oxyhemoglobin Sodium Potassium Chloride Carbon Dioxide BUN Creatinine Glucose POC Glucose 149 H 172 H 172 H Hemoglobin A1c Calcium Phosphorus Magnesium AST Troponin T NT-Pro-B Natriuret Pep Total Protein Albumin Triglycerides LDL Cholesterol Direct HDL Cholesterol PTH Intact Urine Creatinine Urine Total Protein 06/29/22 06/29/22 06/29/22 04:05 04:21 04:21 WBC 17.1 H RBC Hgb 14.6 H Hct 43.9 H Plt Count Lymph % (Auto) [place] % (Auto) Lymph # (Auto) [place] # (Auto) Seg Neutrophils % Seg Neuts % (Manual) Lymphocytes % (Manual) Seg Neutrophils # Seg Neutrophils # Man Lymphocytes # (Manual) PT INR APTT Heparin Anti-Xa Level ABG pH ABG pO2 ABG HCO3 ABG O2 Saturation ABG Base Excess ABG Hemoglobin Oxyhemoglobin Sodium 129 L Potassium Chloride 97.6 L Carbon Dioxide 15 L BUN 59 H Creatinine 2.1 H Glucose 140 H POC Glucose 167 H Hemoglobin A1c Calcium 8.0 L Phosphorus Magnesium AST Troponin T NT-Pro-B Natriuret Pep Total Protein Albumin Triglycerides LDL Cholesterol Direct HDL Cholesterol PTH Intact Urine Creatinine Urine Total Protein 06/29/22 06/29/22 06/29/22 04:21 06:27 07:31 WBC RBC Hgb Hct Plt Count Lymph % (Auto) [place] % (Auto) Lymph # (Auto) [place] # (Auto) Seg Neutrophils % Seg Neuts % (Manual) Lymphocytes % (Manual) Seg Neutrophils # Seg Neutrophils # Man Lymphocytes # (Manual) PT INR APTT Heparin Anti-Xa Level ABG pH ABG pO2 ABG HCO3 ABG O2 Saturation ABG Base Excess ABG Hemoglobin Oxyhemoglobin Sodium Potassium Chloride Carbon Dioxide BUN Creatinine Glucose POC Glucose 138 H 142 H Hemoglobin A1c Calcium Phosphorus Magnesium AST Troponin T NT-Pro-B Natriuret Pep Total Protein Albumin Triglycerides LDL Cholesterol Direct HDL Cholesterol PTH Intact 382.4 H Urine Creatinine Urine Total Protein 06/29/22 06/29/22 06/29/22 08:33 09:28 10:35 WBC RBC Hgb Hct Plt Count Lymph % (Auto) [place] % (Auto) Lymph # (Auto) [place] # (Auto) Seg Neutrophils % Seg Neuts % (Manual) Lymphocytes % (Manual) Seg Neutrophils # Seg Neutrophils # Man Lymphocytes # (Manual) PT INR APTT Heparin Anti-Xa Level ABG pH ABG pO2 ABG HCO3 ABG O2 Saturation ABG Base Excess ABG Hemoglobin Oxyhemoglobin Sodium Potassium Chloride Carbon Dioxide BUN Creatinine Glucose POC Glucose 141 H 167 H 152 H Hemoglobin A1c Calcium Phosphorus Magnesium AST Troponin T NT-Pro-B Natriuret Pep Total Protein Albumin Triglycerides LDL Cholesterol Direct HDL Cholesterol PTH Intact Urine Creatinine Urine Total Protein 06/29/22 06/29/22 06/29/22 10:47 11:30 12:33 WBC RBC Hgb Hct Plt Count Lymph % (Auto) [place] % (Auto) Lymph # (Auto) [place] # (Auto) Seg Neutrophils % Seg Neuts % (Manual) Lymphocytes % (Manual) Seg Neutrophils # Seg Neutrophils # Man Lymphocytes # (Manual) PT INR APTT Heparin Anti-Xa Level ABG pH ABG pO2 ABG HCO3 ABG O2 Saturation ABG Base Excess ABG Hemoglobin Oxyhemoglobin Sodium 131 L Potassium Chloride 94.4 L Carbon Dioxide 15 L BUN 59 H Creatinine 2.2 H Glucose 149 H POC Glucose 134 H 146 H Hemoglobin A1c Calcium Phosphorus 5.80 H Magnesium AST Troponin T NT-Pro-B Natriuret Pep Total Protein Albumin Triglycerides LDL Cholesterol Direct HDL Cholesterol PTH Intact Urine Creatinine Urine Total Protein 06/29/22 06/29/22 06/29/22 13:28 14:33 15:49 WBC RBC Hgb Hct Plt Count Lymph % (Auto) [place] % (Auto) Lymph # (Auto) [place] # (Auto) Seg Neutrophils % Seg Neuts % (Manual) Lymphocytes % (Manual) Seg Neutrophils # Seg Neutrophils # Man Lymphocytes # (Manual) PT INR APTT Heparin Anti-Xa Level ABG pH ABG pO2 ABG HCO3 ABG O2 Saturation ABG Base Excess ABG Hemoglobin Oxyhemoglobin Sodium Potassium Chloride Carbon Dioxide BUN Creatinine Glucose POC Glucose 170 H 188 H 155 H Hemoglobin A1c Calcium Phosphorus Magnesium AST Troponin T NT-Pro-B Natriuret Pep Total Protein Albumin Triglycerides LDL Cholesterol Direct HDL Cholesterol PTH Intact Urine Creatinine Urine Total Protein 06/29/22 06/29/22 06/29/22 16:14 16:14 16:45 WBC RBC Hgb Hct Plt Count Lymph % (Auto) [place] % (Auto) Lymph # (Auto) [place] # (Auto) Seg Neutrophils % Seg Neuts % (Manual) Lymphocytes % (Manual) Seg Neutrophils # Seg Neutrophils # Man Lymphocytes # (Manual) PT INR APTT Heparin Anti-Xa Level 0.19 L ABG pH ABG pO2 ABG HCO3 ABG O2 Saturation ABG Base Excess ABG Hemoglobin Oxyhemoglobin Sodium 128 L Potassium Chloride 95.8 L Carbon Dioxide 15 L BUN 52 H Creatinine 1.8 H Glucose 138 H POC Glucose 135 H Hemoglobin A1c Calcium 7.9 L Phosphorus Magnesium AST Troponin T NT-Pro-B Natriuret Pep Total Protein Albumin Triglycerides LDL Cholesterol Direct HDL Cholesterol PTH Intact Urine Creatinine Urine Total Protein 06/29/22 06/29/22 06/29/22 17:47 18:52 20:14 WBC RBC Hgb Hct Plt Count Lymph % (Auto) [place] % (Auto) Lymph # (Auto) [place] # (Auto) Seg Neutrophils % Seg Neuts % (Manual) Lymphocytes % (Manual) Seg Neutrophils # Seg Neutrophils # Man Lymphocytes # (Manual) PT INR APTT Heparin Anti-Xa Level ABG pH ABG pO2 ABG HCO3 ABG O2 Saturation ABG Base Excess ABG Hemoglobin Oxyhemoglobin Sodium Potassium Chloride Carbon Dioxide BUN Creatinine Glucose POC Glucose 150 H 123 H 155 H Hemoglobin A1c Calcium Phosphorus Magnesium AST Troponin T NT-Pro-B Natriuret Pep Total Protein Albumin Triglycerides LDL Cholesterol Direct HDL Cholesterol PTH Intact Urine Creatinine Urine Total Protein 06/29/22 06/29/22 06/29/22 20:17 21:11 21:53 WBC RBC Hgb Hct Plt Count Lymph % (Auto) [place] % (Auto) Lymph # (Auto) [place] # (Auto) Seg Neutrophils % Seg Neuts % (Manual) Lymphocytes % (Manual) Seg Neutrophils # Seg Neutrophils # Man Lymphocytes # (Manual) PT INR APTT Heparin Anti-Xa Level ABG pH ABG pO2 ABG HCO3 ABG O2 Saturation ABG Base Excess ABG Hemoglobin Oxyhemoglobin Sodium 131 L Potassium 5.5 H D Chloride Carbon Dioxide 15 L BUN 56 H Creatinine 2.0 H Glucose 146 H POC Glucose 152 H 165 H Hemoglobin A1c Calcium Phosphorus 5.20 H Magnesium AST Troponin T NT-Pro-B Natriuret Pep Total Protein Albumin Triglycerides LDL Cholesterol Direct HDL Cholesterol PTH Intact Urine Creatinine Urine Total Protein 06/29/22 06/30/22 06/30/22 23:07 00:18 00:58 WBC RBC Hgb Hct Plt Count Lymph % (Auto) [place] % (Auto) Lymph # (Auto) [place] # (Auto) Seg Neutrophils % Seg Neuts % (Manual) Lymphocytes % (Manual) Seg Neutrophils # Seg Neutrophils # Man Lymphocytes # (Manual) PT INR APTT Heparin Anti-Xa Level ABG pH ABG pO2 ABG HCO3 ABG O2 Saturation ABG Base Excess ABG Hemoglobin Oxyhemoglobin Sodium Potassium Chloride Carbon Dioxide BUN Creatinine Glucose POC Glucose 163 H 178 H 189 H Hemoglobin A1c Calcium Phosphorus Magnesium AST Troponin T NT-Pro-B Natriuret Pep Total Protein Albumin Triglycerides LDL Cholesterol Direct HDL Cholesterol PTH Intact Urine Creatinine Urine Total Protein 06/30/22 06/30/22 06/30/22 01:57 02:59 03:53 WBC RBC Hgb Hct Plt Count Lymph % (Auto) [place] % (Auto) Lymph # (Auto) [place] # (Auto) Seg Neutrophils % Seg Neuts % (Manual) Lymphocytes % (Manual) Seg Neutrophils # Seg Neutrophils # Man Lymphocytes # (Manual) PT INR APTT Heparin Anti-Xa Level ABG pH ABG pO2 ABG HCO3 ABG O2 Saturation ABG Base Excess ABG Hemoglobin Oxyhemoglobin Sodium Potassium Chloride Carbon Dioxide BUN Creatinine Glucose POC Glucose 150 H 147 H 122 H Hemoglobin A1c Calcium Phosphorus Magnesium AST Troponin T NT-Pro-B Natriuret Pep Total Protein Albumin Triglycerides LDL Cholesterol Direct HDL Cholesterol PTH Intact Urine Creatinine Urine Total Protein 06/30/22 06/30/22 06/30/22 04:56 05:25 05:52 WBC RBC Hgb Hct Plt Count Lymph % (Auto) [place] % (Auto) Lymph # (Auto) [place] # (Auto) Seg Neutrophils % Seg Neuts % (Manual) Lymphocytes % (Manual) Seg Neutrophils # Seg Neutrophils # Man Lymphocytes # (Manual) PT INR APTT Heparin Anti-Xa Level ABG pH ABG pO2 ABG HCO3 ABG O2 Saturation ABG Base Excess ABG Hemoglobin Oxyhemoglobin Sodium 132 L Potassium Chloride Carbon Dioxide 15 L BUN 53 H Creatinine 1.7 H Glucose 137 H POC Glucose 110 H 150 H Hemoglobin A1c Calcium Phosphorus Magnesium AST Troponin T NT-Pro-B Natriuret Pep Total Protein Albumin Triglycerides LDL Cholesterol Direct HDL Cholesterol PTH Intact Urine Creatinine Urine Total Protein 06/30/22 06/30/22 06/30/22 07:25 08:20 09:20 WBC RBC Hgb Hct Plt Count Lymph % (Auto) [place] % (Auto) Lymph # (Auto) [place] # (Auto) Seg Neutrophils % Seg Neuts % (Manual) Lymphocytes % (Manual) Seg Neutrophils # Seg Neutrophils # Man Lymphocytes # (Manual) PT INR APTT Heparin Anti-Xa Level ABG pH ABG pO2 ABG HCO3 ABG O2 Saturation ABG Base Excess ABG Hemoglobin Oxyhemoglobin Sodium Potassium Chloride Carbon Dioxide BUN Creatinine Glucose POC Glucose 133 H 119 H 128 H Hemoglobin A1c Calcium Phosphorus Magnesium AST Troponin T NT-Pro-B Natriuret Pep Total Protein Albumin Triglycerides LDL Cholesterol Direct HDL Cholesterol PTH Intact Urine Creatinine Urine Total Protein 06/30/22 06/30/22 06/30/22 10:21 10:59 11:25 WBC RBC Hgb Hct Plt Count Lymph % (Auto) [place] % (Auto) Lymph # (Auto) [place] # (Auto) Seg Neutrophils % Seg Neuts % (Manual) Lymphocytes % (Manual) Seg Neutrophils # Seg Neutrophils # Man Lymphocytes # (Manual) PT INR APTT Heparin Anti-Xa Level ABG pH ABG pO2 ABG HCO3 ABG O2 Saturation ABG Base Excess ABG Hemoglobin Oxyhemoglobin Sodium 132 L Potassium Chloride Carbon Dioxide 16 L BUN 49 H Creatinine 1.7 H Glucose 168 H POC Glucose 133 H 232 H Hemoglobin A1c Calcium 8.1 L Phosphorus Magnesium AST Troponin T NT-Pro-B Natriuret Pep Total Protein Albumin Triglycerides LDL Cholesterol Direct HDL Cholesterol PTH Intact Urine Creatinine Urine Total Protein 06/30/22 06/30/22 07/01/22 16:15 21:30 05:10 WBC RBC Hgb Hct Plt Count Lymph % (Auto) [place] % (Auto) Lymph # (Auto) [place] # (Auto) Seg Neutrophils % Seg Neuts % (Manual) Lymphocytes % (Manual) Seg Neutrophils # Seg Neutrophils # Man Lymphocytes # (Manual) PT INR APTT Heparin Anti-Xa Level 0.24 L ABG pH ABG pO2 ABG HCO3 ABG O2 Saturation ABG Base Excess ABG Hemoglobin Oxyhemoglobin Sodium Potassium Chloride Carbon Dioxide BUN Creatinine Glucose POC Glucose 325 H 279 H Hemoglobin A1c Calcium Phosphorus Magnesium AST Troponin T NT-Pro-B Natriuret Pep Total Protein Albumin Triglycerides LDL Cholesterol Direct HDL Cholesterol PTH Intact Urine Creatinine Urine Total Protein 07/01/22 07/01/22 07/01/22 05:10 07:38 09:13 WBC RBC Hgb Hct Plt Count Lymph % (Auto) [place] % (Auto) Lymph # (Auto) [place] # (Auto) Seg Neutrophils % Seg Neuts % (Manual) Lymphocytes % (Manual) Seg Neutrophils # Seg Neutrophils # Man Lymphocytes # (Manual) PT 15.9 H INR 1.14 H APTT Heparin Anti-Xa Level ABG pH ABG pO2 ABG HCO3 ABG O2 Saturation ABG Base Excess ABG Hemoglobin Oxyhemoglobin Sodium 132 L Potassium Chloride 97.8 L Carbon Dioxide 19 L BUN 34 H Creatinine 1.3 H Glucose 250 H POC Glucose 235 H Hemoglobin A1c Calcium Phosphorus Magnesium AST Troponin T NT-Pro-B Natriuret Pep Total Protein Albumin Triglycerides LDL Cholesterol Direct HDL Cholesterol PTH Intact Urine Creatinine Urine Total Protein 07/01/22 07/01/22 07/01/22 12:03 13:42 16:32 WBC RBC Hgb Hct Plt Count Lymph % (Auto) [place] % (Auto) Lymph # (Auto) [place] # (Auto) Seg Neutrophils % Seg Neuts % (Manual) Lymphocytes % (Manual) Seg Neutrophils # Seg Neutrophils # Man Lymphocytes # (Manual) PT INR APTT Heparin Anti-Xa Level 0.25 L ABG pH ABG pO2 ABG HCO3 ABG O2 Saturation ABG Base Excess ABG Hemoglobin Oxyhemoglobin Sodium Potassium Chloride Carbon Dioxide BUN Creatinine Glucose POC Glucose 272 H 316 H Hemoglobin A1c Calcium Phosphorus Magnesium AST Troponin T NT-Pro-B Natriuret Pep Total Protein Albumin Triglycerides LDL Cholesterol Direct HDL Cholesterol PTH Intact Urine Creatinine Urine Total Protein 07/01/22 07/01/22 07/02/22 21:21 23:14 07:41 WBC RBC Hgb Hct Plt Count Lymph % (Auto) [place] % (Auto) Lymph # (Auto) [place] # (Auto) Seg Neutrophils % Seg Neuts % (Manual) Lymphocytes % (Manual) Seg Neutrophils # Seg Neutrophils # Man Lymphocytes # (Manual) PT INR APTT Heparin Anti-Xa Level 0.27 L ABG pH ABG pO2 ABG HCO3 ABG O2 Saturation ABG Base Excess ABG Hemoglobin Oxyhemoglobin Sodium Potassium Chloride Carbon Dioxide BUN Creatinine Glucose POC Glucose 262 H 287 H Hemoglobin A1c Calcium Phosphorus Magnesium AST Troponin T NT-Pro-B Natriuret Pep Total Protein Albumin Triglycerides LDL Cholesterol Direct HDL Cholesterol PTH Intact Urine Creatinine Urine Total Protein 07/02/22 07/02/22 07/02/22 08:12 08:12 20:28 WBC RBC Hgb 14.7 H Hct 46.3 H Plt Count 138 L Lymph % (Auto) [place] % (Auto) Lymph # (Auto) [place] # (Auto) Seg Neutrophils % Seg Neuts % (Manual) Lymphocytes % (Manual) Seg Neutrophils # Seg Neutrophils # Man Lymphocytes # (Manual) PT INR APTT Heparin Anti-Xa Level 0.21 L ABG pH ABG pO2 ABG HCO3 ABG O2 Saturation ABG Base Excess ABG Hemoglobin Oxyhemoglobin Sodium 129 L Potassium Chloride 95.7 L Carbon Dioxide 17 L BUN 24 H Creatinine Glucose 275 H POC Glucose Hemoglobin A1c Calcium Phosphorus 2.10 L D Magnesium AST Troponin T NT-Pro-B Natriuret Pep Total Protein Albumin Triglycerides LDL Cholesterol Direct HDL Cholesterol PTH Intact Urine Creatinine Urine Total Protein 07/02/22 07/02/22 07/03/22 20:28 23:01 07:28 WBC RBC Hgb Hct Plt Count Lymph % (Auto) [place] % (Auto) Lymph # (Auto) [place] # (Auto) Seg Neutrophils % Seg Neuts % (Manual) Lymphocytes % (Manual) Seg Neutrophils # Seg Neutrophils # Man Lymphocytes # (Manual) PT 17.3 H INR 1.26 H APTT 24.1 L Heparin Anti-Xa Level ABG pH ABG pO2 ABG HCO3 ABG O2 Saturation ABG Base Excess ABG Hemoglobin Oxyhemoglobin Sodium Potassium Chloride Carbon Dioxide BUN Creatinine Glucose POC Glucose 340 H 261 H Hemoglobin A1c Calcium Phosphorus Magnesium AST Troponin T NT-Pro-B Natriuret Pep Total Protein Albumin Triglycerides LDL Cholesterol Direct HDL Cholesterol PTH Intact Urine Creatinine Urine Total Protein 07/03/22 07/03/22 07/03/22 11:30 12:20 16:23 WBC RBC Hgb Hct Plt Count Lymph % (Auto) [place] % (Auto) Lymph # (Auto) [place] # (Auto) Seg Neutrophils % Seg Neuts % (Manual) Lymphocytes % (Manual) Seg Neutrophils # Seg Neutrophils # Man Lymphocytes # (Manual) PT INR APTT Heparin Anti-Xa Level ABG pH ABG pO2 ABG HCO3 ABG O2 Saturation ABG Base Excess ABG Hemoglobin Oxyhemoglobin Sodium 134 L Potassium Chloride Carbon Dioxide BUN 18 H Creatinine Glucose 271 H POC Glucose 292 H 255 H Hemoglobin A1c Calcium Phosphorus Magnesium AST Troponin T NT-Pro-B Natriuret Pep Total Protein Albumin Triglycerides LDL Cholesterol Direct HDL Cholesterol PTH Intact Urine Creatinine Urine Total Protein 07/03/22 07/04/22 07/04/22 22:01 05:37 05:37 WBC RBC Hgb Hct Plt Count Lymph % (Auto) 8.4 L [place] % (Auto) 10.1 H Lymph # (Auto) 0.8 L [place] # (Auto) 1.0 H Seg Neutrophils % 80.6 H Seg Neuts % (Manual) Lymphocytes % (Manual) Seg Neutrophils # 8.0 H Seg Neutrophils # Man Lymphocytes # (Manual) PT INR APTT Heparin Anti-Xa Level ABG pH ABG pO2 ABG HCO3 ABG O2 Saturation ABG Base Excess ABG Hemoglobin Oxyhemoglobin Sodium Potassium Chloride Carbon Dioxide BUN Creatinine Glucose 217 H POC Glucose 281 H Hemoglobin A1c Calcium Phosphorus Magnesium AST Troponin T NT-Pro-B Natriuret Pep Total Protein Albumin Triglycerides LDL Cholesterol Direct HDL Cholesterol PTH Intact Urine Creatinine Urine Total Protein 07/04/22 07/04/22 07/04/22 07:40 11:15 11:52 WBC RBC Hgb Hct Plt Count Lymph % (Auto) [place] % (Auto) Lymph # (Auto) [place] # (Auto) Seg Neutrophils % Seg Neuts % (Manual) Lymphocytes % (Manual) Seg Neutrophils # Seg Neutrophils # Man Lymphocytes # (Manual) PT INR APTT Heparin Anti-Xa Level ABG pH 7.303 L ABG pO2 64.6 L ABG HCO3 ABG O2 Saturation 92.9 L ABG Base Excess ABG Hemoglobin 11.9 L Oxyhemoglobin 90.6 L Sodium Potassium Chloride Carbon Dioxide BUN Creatinine Glucose POC Glucose 211 H 267 H Hemoglobin A1c Calcium Phosphorus Magnesium AST Troponin T NT-Pro-B Natriuret Pep Total Protein Albumin Triglycerides LDL Cholesterol Direct HDL Cholesterol PTH Intact Urine Creatinine Urine Total Protein 07/04/22 07/04/22 07/05/22 16:51 22:03 07:48 WBC RBC Hgb Hct Plt Count Lymph % (Auto) [place] % (Auto) Lymph # (Auto) [place] # (Auto) Seg Neutrophils % Seg Neuts % (Manual) Lymphocytes % (Manual) Seg Neutrophils # Seg Neutrophils # Man Lymphocytes # (Manual) PT INR APTT Heparin Anti-Xa Level ABG pH ABG pO2 ABG HCO3 ABG O2 Saturation ABG Base Excess ABG Hemoglobin Oxyhemoglobin Sodium Potassium Chloride Carbon Dioxide BUN Creatinine Glucose POC Glucose 273 H 202 H 223 H Hemoglobin A1c Calcium Phosphorus Magnesium AST Troponin T NT-Pro-B Natriuret Pep Total Protein Albumin Triglycerides LDL Cholesterol Direct HDL Cholesterol PTH Intact Urine Creatinine Urine Total Protein 07/05/22 07/05/22 07/05/22 11:06 18:03 Unknown WBC 16.5 H RBC Hgb Hct Plt Count Lymph % (Auto) [place] % (Auto) Lymph # (Auto) [place] # (Auto) Seg Neutrophils % Seg Neuts % (Manual) 91.0 H Lymphocytes % (Manual) 1.0 L Seg Neutrophils # Seg Neutrophils # Man 15.0 H Lymphocytes # (Manual) 0.2 L PT INR APTT Heparin Anti-Xa Level ABG pH 7.313 L ABG pO2 102.1 H ABG HCO3 27.2 H ABG O2 Saturation ABG Base Excess ABG Hemoglobin 10.6 L Oxyhemoglobin Sodium Potassium Chloride Carbon Dioxide BUN Creatinine Glucose POC Glucose 219 H Hemoglobin A1c Calcium Phosphorus Magnesium AST Troponin T NT-Pro-B Natriuret Pep Total Protein Albumin Triglycerides LDL Cholesterol Direct HDL Cholesterol PTH Intact Urine Creatinine Urine Total Protein 07/05/22 07/06/22 07/06/22 Unknown 00:30 03:33 WBC RBC Hgb Hct Plt Count Lymph % (Auto) [place] % (Auto) Lymph # (Auto) [place] # (Auto) Seg Neutrophils % Seg Neuts % (Manual) Lymphocytes % (Manual) Seg Neutrophils # Seg Neutrophils # Man Lymphocytes # (Manual) PT INR APTT Heparin Anti-Xa Level ABG pH ABG pO2 142.7 H ABG HCO3 28.9 H ABG O2 Saturation ABG Base Excess 3.6 H ABG Hemoglobin 10.5 L Oxyhemoglobin Sodium Potassium Chloride Carbon Dioxide BUN Creatinine Glucose 290 H POC Glucose 199 H Hemoglobin A1c Calcium Phosphorus Magnesium AST Troponin T NT-Pro-B Natriuret Pep Total Protein Albumin Triglycerides LDL Cholesterol Direct HDL Cholesterol PTH Intact Urine Creatinine Urine Total Protein 07/06/22 07/06/22 07/06/22 04:00 04:00 06:00 WBC 11.4 H RBC 3.55 L Hgb Hct Plt Count Lymph % (Auto) [place] % (Auto) Lymph # (Auto) [place] # (Auto) Seg Neutrophils % Seg Neuts % (Manual) Lymphocytes % (Manual) Seg Neutrophils # Seg Neutrophils # Man Lymphocytes # (Manual) PT INR APTT Heparin Anti-Xa Level ABG pH ABG pO2 ABG HCO3 ABG O2 Saturation ABG Base Excess ABG Hemoglobin Oxyhemoglobin Sodium Potassium Chloride Carbon Dioxide BUN 22 H Creatinine 1.3 H Glucose 173 H POC Glucose 180 H Hemoglobin A1c Calcium Phosphorus Magnesium AST Troponin T NT-Pro-B Natriuret Pep Total Protein Albumin Triglycerides LDL Cholesterol Direct HDL Cholesterol PTH Intact Urine Creatinine Urine Total Protein 07/06/22 07/06/22 07/06/22 09:19 12:39 17:30 WBC RBC Hgb Hct Plt Count Lymph % (Auto) [place] % (Auto) Lymph # (Auto) [place] # (Auto) Seg Neutrophils % Seg Neuts % (Manual) Lymphocytes % (Manual) Seg Neutrophils # Seg Neutrophils # Man Lymphocytes # (Manual) PT INR APTT Heparin Anti-Xa Level ABG pH ABG pO2 ABG HCO3 ABG O2 Saturation ABG Base Excess ABG Hemoglobin Oxyhemoglobin Sodium Potassium Chloride Carbon Dioxide BUN Creatinine Glucose POC Glucose 198 H 179 H 106 H Hemoglobin A1c Calcium Phosphorus Magnesium AST Troponin T NT-Pro-B Natriuret Pep Total Protein Albumin Triglycerides LDL Cholesterol Direct HDL Cholesterol PTH Intact Urine Creatinine Urine Total Protein 07/06/22 07/06/22 07/07/22 20:59 23:30 03:02 WBC RBC Hgb Hct Plt Count Lymph % (Auto) [place] % (Auto) Lymph # (Auto) [place] # (Auto) Seg Neutrophils % Seg Neuts % (Manual) Lymphocytes % (Manual) Seg Neutrophils # Seg Neutrophils # Man Lymphocytes # (Manual) PT INR APTT Heparin Anti-Xa Level ABG pH ABG pO2 ABG HCO3 ABG O2 Saturation ABG Base Excess ABG Hemoglobin Oxyhemoglobin Sodium Potassium Chloride Carbon Dioxide BUN Creatinine Glucose POC Glucose 152 H 126 H 135 H Hemoglobin A1c Calcium Phosphorus Magnesium AST Troponin T NT-Pro-B Natriuret Pep Total Protein Albumin Triglycerides LDL Cholesterol Direct HDL Cholesterol PTH Intact Urine Creatinine Urine Total Protein 07/07/22 07/07/22 07/07/22 04:13 05:35 05:35 WBC RBC 3.13 L Hgb 9.7 L Hct 28.7 L Plt Count Lymph % (Auto) [place] % (Auto) Lymph # (Auto) [place] # (Auto) Seg Neutrophils % Seg Neuts % (Manual) Lymphocytes % (Manual) Seg Neutrophils # Seg Neutrophils # Man Lymphocytes # (Manual) PT INR APTT Heparin Anti-Xa Level ABG pH 7.473 H ABG pO2 93.4 H ABG HCO3 29.9 H ABG O2 Saturation ABG Base Excess 5.8 H ABG Hemoglobin 10.0 L Oxyhemoglobin Sodium Potassium Chloride Carbon Dioxide 31 H BUN 21 H Creatinine Glucose POC Glucose Hemoglobin A1c Calcium Phosphorus Magnesium AST Troponin T NT-Pro-B Natriuret Pep Total Protein Albumin Triglycerides LDL Cholesterol Direct HDL Cholesterol PTH Intact Urine Creatinine Urine Total Protein 07/07/22 07/07/22 07/07/22 06:15 12:25 18:36 WBC RBC Hgb Hct Plt Count Lymph % (Auto) [place] % (Auto) Lymph # (Auto) [place] # (Auto) Seg Neutrophils % Seg Neuts % (Manual) Lymphocytes % (Manual) Seg Neutrophils # Seg Neutrophils # Man Lymphocytes # (Manual) PT INR APTT Heparin Anti-Xa Level ABG pH ABG pO2 ABG HCO3 ABG O2 Saturation ABG Base Excess ABG Hemoglobin Oxyhemoglobin Sodium Potassium Chloride Carbon Dioxide BUN Creatinine Glucose POC Glucose 67 L 111 H 167 H Hemoglobin A1c Calcium Phosphorus Magnesium AST Troponin T NT-Pro-B Natriuret Pep Total Protein Albumin Triglycerides LDL Cholesterol Direct HDL Cholesterol PTH Intact Urine Creatinine Urine Total Protein 07/07/22 07/08/22 07/08/22 23:38 04:00 04:15 WBC RBC Hgb Hct Plt Count Lymph % (Auto) [place] % (Auto) Lymph # (Auto) [place] # (Auto) Seg Neutrophils % Seg Neuts % (Manual) Lymphocytes % (Manual) Seg Neutrophils # Seg Neutrophils # Man Lymphocytes # (Manual) PT INR APTT Heparin Anti-Xa Level ABG pH ABG pO2 63.4 L ABG HCO3 29.2 H ABG O2 Saturation 94.0 L ABG Base Excess 4.2 H ABG Hemoglobin 10.0 L Oxyhemoglobin 91.8 L Sodium Potassium Chloride Carbon Dioxide BUN 26 H Creatinine Glucose 276 H POC Glucose 243 H Hemoglobin A1c Calcium Phosphorus Magnesium AST Troponin T NT-Pro-B Natriuret Pep Total Protein Albumin Triglycerides LDL Cholesterol Direct HDL Cholesterol PTH Intact Urine Creatinine Urine Total Protein 07/08/22 07/08/22 07/08/22 05:00 05:07 11:33 WBC RBC 3.30 L Hgb 9.9 L Hct Plt Count Lymph % (Auto) [place] % (Auto) Lymph # (Auto) [place] # (Auto) Seg Neutrophils % Seg Neuts % (Manual) Lymphocytes % (Manual) Seg Neutrophils # Seg Neutrophils # Man Lymphocytes # (Manual) PT INR APTT Heparin Anti-Xa Level ABG pH ABG pO2 ABG HCO3 ABG O2 Saturation ABG Base Excess ABG Hemoglobin Oxyhemoglobin Sodium Potassium Chloride Carbon Dioxide BUN Creatinine Glucose POC Glucose 282 H 315 H Hemoglobin A1c Calcium Phosphorus Magnesium AST Troponin T NT-Pro-B Natriuret Pep Total Protein Albumin Triglycerides LDL Cholesterol Direct HDL Cholesterol PTH Intact Urine Creatinine Urine Total Protein 07/08/22 07/08/22 07/08/22 15:56 22:12 23:33 WBC RBC Hgb Hct Plt Count Lymph % (Auto) [place] % (Auto) Lymph # (Auto) [place] # (Auto) Seg Neutrophils % Seg Neuts % (Manual) Lymphocytes % (Manual) Seg Neutrophils # Seg Neutrophils # Man Lymphocytes # (Manual) PT INR APTT Heparin Anti-Xa Level ABG pH ABG pO2 ABG HCO3 ABG O2 Saturation ABG Base Excess ABG Hemoglobin Oxyhemoglobin Sodium Potassium Chloride Carbon Dioxide BUN Creatinine Glucose POC Glucose 378 H 389 H 390 H Hemoglobin A1c Calcium Phosphorus Magnesium AST Troponin T NT-Pro-B Natriuret Pep Total Protein Albumin Triglycerides LDL Cholesterol Direct HDL Cholesterol PTH Intact Urine Creatinine Urine Total Protein 07/09/22 07/09/22 07/09/22 04:00 04:00 05:18 WBC RBC 3.30 L Hgb 9.9 L Hct Plt Count Lymph % (Auto) [place] % (Auto) Lymph # (Auto) [place] # (Auto) Seg Neutrophils % Seg Neuts % (Manual) Lymphocytes % (Manual) Seg Neutrophils # Seg Neutrophils # Man Lymphocytes # (Manual) PT INR APTT Heparin Anti-Xa Level ABG pH ABG pO2 ABG HCO3 ABG O2 Saturation ABG Base Excess ABG Hemoglobin Oxyhemoglobin Sodium 146 H Potassium Chloride Carbon Dioxide BUN 36 H Creatinine Glucose 365 H POC Glucose 389 H Hemoglobin A1c Calcium Phosphorus Magnesium AST Troponin T NT-Pro-B Natriuret Pep Total Protein Albumin Triglycerides LDL Cholesterol Direct HDL Cholesterol PTH Intact Urine Creatinine Urine Total Protein 07/09/22 07/09/22 07/09/22 11:04 11:35 16:14 WBC RBC Hgb Hct Plt Count Lymph % (Auto) [place] % (Auto) Lymph # (Auto) [place] # (Auto) Seg Neutrophils % Seg Neuts % (Manual) Lymphocytes % (Manual) Seg Neutrophils # Seg Neutrophils # Man Lymphocytes # (Manual) PT INR APTT Heparin Anti-Xa Level ABG pH ABG pO2 74.0 L ABG HCO3 31.4 H ABG O2 Saturation ABG Base Excess 4.6 H ABG Hemoglobin 11.1 L Oxyhemoglobin 93.1 L Sodium Potassium Chloride Carbon Dioxide BUN Creatinine Glucose POC Glucose 328 H 273 H Hemoglobin A1c Calcium Phosphorus Magnesium AST Troponin T NT-Pro-B Natriuret Pep Total Protein Albumin Triglycerides LDL Cholesterol Direct HDL Cholesterol PTH Intact Urine Creatinine Urine Total Protein 07/09/22 07/10/22 07/10/22 21:54 02:02 03:18 WBC RBC Hgb Hct Plt Count Lymph % (Auto) [place] % (Auto) Lymph # (Auto) [place] # (Auto) Seg Neutrophils % Seg Neuts % (Manual) Lymphocytes % (Manual) Seg Neutrophils # Seg Neutrophils # Man Lymphocytes # (Manual) PT INR APTT Heparin Anti-Xa Level ABG pH ABG pO2 ABG HCO3 ABG O2 Saturation ABG Base Excess ABG Hemoglobin Oxyhemoglobin Sodium Potassium Chloride Carbon Dioxide BUN Creatinine Glucose POC Glucose 271 H 261 H 268 H Hemoglobin A1c Calcium Phosphorus Magnesium AST Troponin T NT-Pro-B Natriuret Pep Total Protein Albumin Triglycerides LDL Cholesterol Direct HDL Cholesterol PTH Intact Urine Creatinine Urine Total Protein 07/10/22 07/10/22 07/10/22 04:21 04:21 05:46 WBC RBC 3.55 L Hgb Hct Plt Count Lymph % (Auto) [place] % (Auto) Lymph # (Auto) [place] # (Auto) Seg Neutrophils % Seg Neuts % (Manual) Lymphocytes % (Manual) Seg Neutrophils # Seg Neutrophils # Man Lymphocytes # (Manual) PT INR APTT Heparin Anti-Xa Level ABG pH ABG pO2 ABG HCO3 ABG O2 Saturation ABG Base Excess ABG Hemoglobin Oxyhemoglobin Sodium 148 H Potassium Chloride Carbon Dioxide 32 H BUN 31 H Creatinine Glucose 253 H POC Glucose 222 H Hemoglobin A1c Calcium Phosphorus Magnesium AST Troponin T NT-Pro-B Natriuret Pep Total Protein 6.0 L Albumin 2.9 L Triglycerides LDL Cholesterol Direct HDL Cholesterol PTH Intact Urine Creatinine Urine Total Protein Chest x-ray: image reviewed Allied health notes reviewed: RT
[2022-07-10] MEDS ORDERED: APIXABAN 5 MG TAB PO SCH (10:00)
--- NOTE | 2022-07-10 10:52 | Progress Note ---
Assessment and Plan Assessment and plan: This is a 52-year-old female with known past medical history of type 2 diabetes mellitus, hypertension, Nicotine dependence, COPD, PE/DVT was on Eliquis at home, medical noncompliance, and bipolar disorder intially admitted for DKA, STEFFANIE, and extensive BLE DVT s/p DKA protocol and bilateral caval iliofemoral thrombectomy. Patient was transferred back to the ICU on 07/05 s/p Cardiac Arrest with ROSC. Hospital Course to Date: 06/28: Mentation improved, denied any abdominal pain, no nausea/vomiting. BG and anio gap still elevated. Continue insulin gtt and IVF resuscitation per protocol. Monitor and replace electrolytes as needed, serial Labs ordered. Transition to subQ once gap is closed. BLE ischemia noted, extremities are purple and cool to touch, palpable pedal pulses appreciated. Patient reported that she has a history of PE/DVT on Eliquis but she admitted that she has not been complaints with any of her medications for 3 days. 06/29: Anion Gap still greater than 20, and CO2 15 this am. 1amp of bcarb given, continue Insulin gtt and IVF resuscitation per protocol. repeat BMP ordered, will transition to subQ once gap is closed. BLE doppler noted with extensive BLE DVT, patient remains on the heparin gtt. Patient reported she was on PO Eliquis at home and had a IVF filter placed. Vascular Surgery is also following, appreciate recommendations. Hyponatremia improving, appreciate Nephrology's recs. 06/30: Remains stable. Still on the DKA protocol, BG level has been less than 200s for over 24hrs, anion gap still in the 20s this am, probably due to STEFFANIE. Will transition patient to Subq insulin. Patient remains on the heparin gtt. BLE is unchanged, CHRISTOPHER pascual applied. Per vascular Surgery, possible interventions/thrombectomy once the patient is stabilized. 07/01: Transition to subQ insulin yesteday. Patient remains stable, tolerating PO intake. Insulin regimen adjusted for hyperglycemia, continue BG check ACHS and IVF hydration for now. Hyponatremia is improving, nephrology is following. Patient remains on heparin gtt per protocol for BLE ischemia. Possible interventions/thrombectomy tomorrow per Vascular Surgery. 07/02: Patient seen and examined at the bedside. Remains stable on RA, VSS. Yesterday was transitioned to SubQ insulin, tolerating PO intake. BLE ischemia is unchanged with palpable pedal pulses. CHRISTOPHER Gastone applied per Vascular Surgery. Discussed with vascular surgery today they are going to proceed with bilateral thrombectomy. We will continue on heparin drip at this time. Education provided to the patient on blood sugar control. Compliance discussion also had for 15 minutes counseling. Anticipate discharge in 24 to 48 hours postprocedure 07/03: Patient underwent thrombectomy of bilateral caval iliofemoral DVTs by vascular surgery on 07/02/2022. Patient tolerated the procedure well 07/04: No acute events overnight. 07/05: Cardiac arrest. Transferred to ICU. PICC line placed. Levophed, vasopressin, phenylephrine, intubated on ventilatory support. A-line placed 07/06: This morning patient was placed on CPAP trial which he failed, patient was started and titrated off. No changes to mental status. Echocardiogram read which showed no right heart strain. BUN/creatinine are increasing but we will continue to monitor. Given 1 dose of vancomycin and cefepime given leukocytosis and febrile illness. Bicarbonate drip discontinued. 07/07: Patient was placed on CPAP trial which he failed due to tachypnea. Decreased her insulin regimen due to hypoglycemia. 07/08: No acute events reported overnight, remains on propofol. RT to trial CPAP. Small PE noted on CTA chest which vascular surgery stated would not require intervention and would typically have minimal to no symptoms. 07/09: KARINA overnight. Awake and appropriate, following commands. Tolerating PSV trial, plan for possible extubation per CCM. Hyperglycemic this am, SSI and Lantus adjusted. Repeat BLE doppler noted, no evidence of DVT, however positive acute superficial thrombosus in BLE. No intervention warranted at this time per Vascular Surgery, continue PO Eliquis. 07/10: S/p extubation, increased O2 supplemenation this am with tachypnea and increased WOB. BUL crackles auscultated, CXR is with increased opacitie Lt greater than Rt. 40mg on IV lasix administered, patient placed on Bipap. Keep patient NPO, insert DHT for meds and enteral nutrition. FWF added for hypernatremia. Neuro: h/o medical noncompliance, bipolar disorder -Psych consulted, appreciate recommendations -Reorientation as needed -Maintain sleep-wake cycle -As needed analgesia -Per psych: Haldol, Depakote -Bilateral wrist restraints for safety Cardiac: s/p cardiac arrest on 07/05, h/o hypertension, HLD -Cardiology consulted, appreciate recommendations -Blood pressure monitoring per protocol -S/p vasopressor support with Levophed, pheynlepinephrine, vasopressin -MAP goal greater than 65 -Hold home hypertensive regimen of lisinopril and nifedipine -Continue home fenofibrate -Home medications: Lisinopril/hydrochlorothiazide 25/12.5 p.o. daily, fenofibrate 1 consistently grams daily -Echocardiogram shows LVEF 60 to 65%, RVSP 20 mmHg, no RV strain Respiratory: Acute hypoxic respiratory failure -CCM consulted, appreciate recommendations -Intubated on 06/04. s/p extubation on 07/09 -Increase WOB and O2 requirement -CXR with increase opacities Lt> than Rt -X1 dose of IV lasix, patient placed on Bipap -SPO2 monitoring GI: Morbid obese, moderate protein calorie malnutrition,Dysphagia -Patient failed bedside swallow -Keep NPO, insert DHT -Resume enteral nutrition -NTR consulted for tube feedings : Acute kidney injury likely secondary to vasomotor nephropathy (resolved), Hypernatremia -Nephrology consulted, appreciate recommendations -FWF added -Monitor intake and output -Renally dose medications -Avoid nephrotoxic medications -Trend BMP ID: Bilateral calf ulcers -General surgery consulted, appreciate recommendations -WOCN -Wound care per nursing -Antibiotic therapy with cefepime/vancomycin x1 -f/u blood culture -Monitor WBC and temperature curve Endo: Diabetes Mellitus with hyperglycemia s/p DKA, hypothyroidism -06/28 hemoglobin A1c 9.7 -SSI and lantus adjusted -Continue home Synthroid -Avoid hypoglycemia -Home regimen: Jardiance 5 mg daily, glimepiride 4 mg twice daily, Latuda 40 mg nightly, Ozempic 1 unit SQ per week Heme: Acute PE, Acute DVT h/o chronic right lower extremity DVT on Eliquis s/p IVC filter -Bilateral lower extremity Doppler ultrasound revealed bilateral lower extremity occlusive DVT with extension to IVC filter -07/07 CTA chest showed few small subsegmental right lower lobe and single distal small segmental right lower lobe pulmonary embolism, consolidation of the left lower lobe -Bilateral lower extremity ultrasound pending -Per vascular surgery minimal thrombus burden, unlikely to represent a cause of acute respiratory arrest, this would typically have minimal to no symptoms, no evidence of significant pulmonary emboli which would require intervention -S/p thrombectomy on 07/02 -s/p Heparin drip, now on Eliquis p.o. -Trend CBC -Transfuse hemoglobin less than 7 -SCDs to BLE while in bed The high probability of a clinically significant, sudden or life threatening deterioration of the [multiple] system(s) required my full and direct attention, intervention and personal management. The aggregate critical care time was [60] minutes. This time is in addition to time spent performing reported procedures but includes the following: [x] Data Review and interpretation [x] Patient assessment and monitoring of vital signs [x] Documentation [x] Medication orders and management Disposition Plan: ICU Total Time Spent with Patient (Minutes): 60 History Interval history: Patient seen and examined at the bedside. s/p extubation. O2 requirement increased from 4L to 6L this am. Patient appears in distress this am, with tachypnea, desated in the low 80s on 6L, Crackles ausculated on BUL. Patient failed bedside swallow, coughing and desated with ice ships. Remains in SR on the monitor, VSS. Hospitalist Physical - Constitutional Vitals: Temp Pulse Resp BP Pulse Ox 98.1 F 77 31 H 135/63 89 07/10/22 07:59 07/10/22 09:00 07/10/22 09:00 07/10/22 09:00 07/10/22 09:00 General appearance: Present: mild distress, well-nourished, obese - EENT Eyes: Present: PERRL ENT: hearing intact - Neck Neck: Present: normal ROM - Respiratory Respiratory effort: labored, other (Tachypnea) Respiratory: bilateral: other (Cracles BUL) - Cardiovascular Rhythm: regular Heart Sounds: Present: S1 & S2 - Extremities Extremities: no ischemia, pulses intact, pulses symmetrical, abnormal (BLE dressing with Christopher Hose stockings) Extremity abnormal: edema - Peripheral Assessment Generalized Edema Type: Non-pitting Edema Degree: 3+ Capillary Refill: < 3 seconds Skin Temperature: Warm Peripheral Pulses: within normal limits - Abdominal General gastrointestinal: soft, non-distended, normal bowel sounds - Integumentary Integumentary: Present: warm, dry - Psychiatric Psychiatric: appropriate mood/affect, cooperative - Neurologic Neurologic: moves all extremities - Allied Health Allied health notes reviewed: nursing, case management HEART Score - HEART Score Troponin: Troponin T 0.080 ng/mL (0.00-0.029) H 06/27/22 20:48 Results - Labs CBC & Chem 7: 07/10/22 04:21 07/10/22 04:21 Labs: Laboratory Last Values WBC 8.3 K/mm3 (4.5-11.0) 07/10/22 04:21 RBC 3.55 M/mm3 (3.65-5.03) L 07/10/22 04:21 Hgb 10.6 gm/dl (10.1-14.3) 07/10/22 04:21 Hct 33.3 % (30.3-42.9) 07/10/22 04:21 MCV 94 fl (79-97) 07/10/22 04:21 MCH 30 pg (28-32) 07/10/22 04:21 MCHC 32 % (30-34) 07/10/22 04:21 RDW 14.9 % (13.2-15.2) 07/10/22 04:21 Plt Count 191 K/mm3 (140-440) 07/10/22 04:21 Lymph % (Auto) 8.4 % (13.4-35.0) L 07/04/22 05:37 [place] % (Auto) 10.1 % (0.0-7.3) H 07/04/22 05:37 Eos % (Auto) 0.4 % (0.0-4.3) 07/04/22 05:37 Baso % (Auto) 0.5 % (0.0-1.8) 07/04/22 05:37 Lymph # (Auto) 0.8 K/mm3 (1.2-5.4) L 07/04/22 05:37 [place] # (Auto) 1.0 K/mm3 (0.0-0.8) H 07/04/22 05:37 Eos # (Auto) 0.0 K/mm3 (0.0-0.4) 07/04/22 05:37 Baso # (Auto) 0.0 K/mm3 (0.0-0.1) 07/04/22 05:37 Add Manual Diff Complete 07/05/22 Unknown Total Counted 100 07/05/22 Unknown Seg Neutrophils % 80.6 % (40.0-70.0) H 07/04/22 05:37 Seg Neuts % (Manual) 91.0 % (40.0-70.0) H 07/05/22 Unknown Band Neutrophils % 0 % 07/05/22 Unknown Lymphocytes % (Manual) 1.0 % (13.4-35.0) L 07/05/22 Unknown Reactive Lymphs % (Man) 0 % 07/05/22 Unknown Monocytes % (Manual) 4.0 % (0.0-7.3) 07/05/22 Unknown Eosinophils % (Manual) 0 % (0.0-4.3) 07/05/22 Unknown Basophils % (Manual) 0 % (0.0-1.8) 07/05/22 Unknown Metamyelocytes % 3.0 % 07/05/22 Unknown Myelocytes % 1.0 % 07/05/22 Unknown Promyelocytes % 0 % 07/05/22 Unknown Blast Cells % 0 % 07/05/22 Unknown Nucleated RBC % Not Reportable 07/05/22 Unknown Seg Neutrophils # 8.0 K/mm3 (1.8-7.7) H 07/04/22 05:37 Seg Neutrophils # Man 15.0 K/mm3 (1.8-7.7) H 07/05/22 Unknown Band Neutrophils # 0.0 K/mm3 07/05/22 Unknown Lymphocytes # (Manual) 0.2 K/mm3 (1.2-5.4) L 07/05/22 Unknown Abs React Lymphs (Man) 0.0 K/mm3 07/05/22 Unknown Monocytes # (Manual) 0.7 K/mm3 (0.0-0.8) 07/05/22 Unknown Eosinophils # (Manual) 0.0 K/mm3 (0.0-0.4) 07/05/22 Unknown Basophils # (Manual) 0.0 K/mm3 (0.0-0.1) 07/05/22 Unknown Metamyelocytes # 0.5 K/mm3 07/05/22 Unknown Myelocytes # 0.2 K/mm3 07/05/22 Unknown Promyelocytes # 0.0 K/mm3 07/05/22 Unknown Blast Cells # 0.0 K/mm3 07/05/22 Unknown WBC Morphology Not Reportable 07/05/22 Unknown WBC Morphology TNR 07/05/22 Unknown Hypersegmented Neuts Not Reportable 07/05/22 Unknown Hyposegmented Neuts Not Reportable 07/05/22 Unknown Hypogranular Neuts Not Reportable 07/05/22 Unknown Smudge Cells Not Reportable 07/05/22 Unknown Toxic Granulation Not Reportable 07/05/22 Unknown Toxic Vacuolation Not Reportable 07/05/22 Unknown Dohle Bodies Not Reportable 07/05/22 Unknown Pelger-Huet Anomaly Not Reportable 07/05/22 Unknown Jesús Rods Not Reportable 07/05/22 Unknown Platelet Estimate Consistent w auto 07/05/22 Unknown Clumped Platelets Few 07/05/22 Unknown Plt Clumps, EDTA Not Reportable 07/05/22 Unknown Large Platelets Not Reportable 07/05/22 Unknown Giant Platelets Not Reportable 07/05/22 Unknown Platelet Satelliting Not Reportable 07/05/22 Unknown Plt Morphology Comment Not Reportable 07/05/22 Unknown RBC Morphology Normal 07/05/22 Unknown Dimorphic RBCs Not Reportable 07/05/22 Unknown Polychromasia Not Reportable 07/05/22 Unknown Hypochromasia Not Reportable 07/05/22 Unknown Poikilocytosis Not Reportable 07/05/22 Unknown Anisocytosis Not Reportable 07/05/22 Unknown Microcytosis Not Reportable 07/05/22 Unknown Macrocytosis Not Reportable 07/05/22 Unknown Spherocytes Not Reportable 07/05/22 Unknown Pappenheimer Bodies Not Reportable 07/05/22 Unknown Sickle Cells Not Reportable 07/05/22 Unknown Target Cells Not Reportable 07/05/22 Unknown Tear Drop Cells Not Reportable 07/05/22 Unknown Ovalocytes Not Reportable 07/05/22 Unknown Helmet Cells Not Reportable 07/05/22 Unknown Barnhart-Nipomo Bodies Not Reportable 07/05/22 Unknown [place] Rings Not Reportable 07/05/22 Unknown Schaller Cells Not Reportable 07/05/22 Unknown Bite Cells Not Reportable 07/05/22 Unknown Crenated Cell Not Reportable 07/05/22 Unknown Elliptocytes Not Reportable 07/05/22 Unknown Acanthocytes (Spur) Not Reportable 07/05/22 Unknown Rouleaux Not Reportable 07/05/22 Unknown Hemoglobin C Crystals Not Reportable 07/05/22 Unknown Schistocytes Not Reportable 07/05/22 Unknown Malaria parasites Not Reportable 07/05/22 Unknown Ellis Bodies Not Reportable 07/05/22 Unknown Hem Pathologist Commnt No 07/05/22 Unknown PT 17.3 Sec. (12.2-14.9) H 07/02/22 20:28 INR 1.26 (0.87-1.13) H 07/02/22 20:28 APTT 24.1 Sec. (24.2-36.6) L 07/02/22 20:28 Heparin Anti-Xa Level 0.21 U.I./ml (0.3-0.7) L 07/02/22 08:12 ABG pH 7.352 pH Units (7.350-7.450) 07/09/22 11:35 ABG pCO2 57.9 mm Hg 07/09/22 11:35 ABG pO2 74.0 mm Hg (80.0-90.0) L 07/09/22 11:35 ABG HCO3 31.4 mmol/L (20.0-26.0) H 07/09/22 11:35 ABG O2 Saturation 95.2 % (95.0-99.0) 07/09/22 11:35 ABG O2 Content 14.6 (0.0-44) 07/09/22 11:35 ABG Base Excess 4.6 mmol/L (-2.0-3.0) H 07/09/22 11:35 ABG Hemoglobin 11.1 gm/dl (12.0-16.0) L 07/09/22 11:35 ABG Carboxyhemoglobin 1.8 % (0.0-5.0) 07/09/22 11:35 ABG Methemoglobin 0.4 % (0.0-1.5) 07/09/22 11:35 Oxyhemoglobin 93.1 % (95.0-99.0) L 07/09/22 11:35 FiO2 40 % 07/09/22 11:35 Sodium 148 mmol/L (137-145) H 07/10/22 04:21 Potassium 4.7 mmol/L (3.6-5.0) 07/10/22 04:21 Chloride 105.7 mmol/L (98-107) 07/10/22 04:21 Carbon Dioxide 32 mmol/L (22-30) H 07/10/22 04:21 Anion Gap 15 mmol/L 07/10/22 04:21 BUN 31 mg/dL (7-17) H 07/10/22 04:21 Creatinine 0.9 mg/dL (0.6-1.2) 07/10/22 04:21 Estimated GFR > 60 ml/min 07/10/22 04:21 BUN/Creatinine Ratio 34 % 07/10/22 04:21 Glucose 253 mg/dL (65-100) H 07/10/22 04:21 POC Glucose 222 mg/dL (70-105) H 07/10/22 05:46 Hemoglobin A1c 9.7 % (4-6) H 06/28/22 20:31 Lactic Acid 1.90 mmol/L (0.7-2.0) 06/29/22 10:47 Calcium 9.7 mg/dL (8.4-10.2) 07/10/22 04:21 Phosphorus 3.20 mg/dL (2.5-4.5) 07/10/22 04:21 Magnesium 2.30 mg/dL (1.7-2.3) 07/10/22 04:21 Total Bilirubin 0.60 mg/dL (0.1-1.2) 07/10/22 04:21 AST 18 units/L (5-40) 07/10/22 04:21 ALT 30 units/L (7-56) 07/10/22 04:21 Alkaline Phosphatase 84 units/L (35-129) 07/10/22 04:21 Troponin T 0.080 ng/mL (0.00-0.029) H 06/27/22 20:48 NT-Pro-B Natriuret Pep 4137 pg/mL (0-900) H 06/27/22 20:48 Total Protein 6.0 g/dL (6.3-8.2) L 07/10/22 04:21 Albumin 2.9 g/dL (3.9-5) L 07/10/22 04:21 Albumin/Globulin Ratio 0.9 % 07/10/22 04:21 Triglycerides 349 mg/dL (2-149) H 06/27/22 20:48 Cholesterol 156 mg/dL (50-199) 06/27/22 20:48 LDL Cholesterol Direct 37 mg/dL (50-130) L 06/27/22 20:48 HDL Cholesterol 38 mg/dL (40-59) L 06/27/22 20:48 Cholesterol/HDL Ratio 4.10 % 06/27/22 20:48 Procalcitonin 2.51 ng/mL (<0.15) 06/29/22 10:47 PTH Intact 382.4 pg/mL (15-65) H 06/29/22 04:21 Urine Creatinine 85.4 mg/dL (0.1-20.0) H 06/28/22 08:10 Protein/Creatinin Ratio 0.57 06/28/22 08:10 Urine Sodium 10 mmol/L 06/28/22 08:10 Urine Total Protein 49 mg/dL (5-11.8) H 06/28/22 08:10 Microbiology: Microbiology 07/05/22 15:15 Peripheral/Venous Blood Culture - Preliminary NO GROWTH AFTER 4 DAYS 07/05/22 15:15 Peripheral/Venous Blood Culture - Preliminary NO GROWTH AFTER 4 DAYS 07/05/22 11:07 Tracheal Aspirate Sputum Culture - Final 07/07/22 14:29 Peripheral/Venous Blood Culture - Preliminary NO GROWTH AFTER 48 HOURS 07/07/22 14:29 Peripheral/Venous Blood Culture - Preliminary NO GROWTH AFTER 48 HOURS Tian/IV: Voiding Method External Female Catheter Active Medications - Current Medications Current Medications: Generic Name Dose Route Start Last Admin Trade Name Freq PRN Reason Stop Dose Admin Acetaminophen 650 mg 06/28/22 03:09 Acetaminophen 325 Mg Tab PO Q6H PRN Pain MILD(1-3)/Fever >100.5/MURILLO Lipase/Protease/Amylase 1 each 07/05/22 11:00 Lipase 10,500/Protease 25,000/Amylase 43,750 (Units) Dr [place] FEEDTUBE PRN PRN For Clogged Feeding Tube Apixaban 5 mg 07/10/22 10:00 Apixaban 5 Mg Tab FEEDTUBE Q12HR SHANTHI Protocol Atorvastatin Calcium 40 mg 07/05/22 10:38 07/09/22 21:45 Atorvastatin 40 Mg Tab FEEDTUBE Not Given QHS SHANTHI Dextrose 50 ml 06/30/22 09:00 07/07/22 06:21 Dextrose 50% In Water (25gm) 50 Ml Syringe IV 50 ml Q30MIN PRN Administration Hypoglycemia Protocol Furosemide 40 mg 07/10/22 11:00 Furosemide 40 Mg/4 Ml Inj IV 07/10/22 14:00 ONCE SHANTHI Haloperidol 5 mg 07/05/22 11:00 07/09/22 21:45 Haloperidol 5 Mg Tab FEEDTUBE Not Given BID SHANTHI Hydrophilic Ointment 1 applic 07/05/22 12:00 Lip Therapy Vaseline TP Q2H PRN Dry Lips Insulin Glargine 25 units 07/10/22 22:00 Insulin Glargine 100 Units/Ml SUB-Q QHS [facility] Insulin Human Lispro 0 unit 07/09/22 10:00 07/10/22 07:48 Insulin Lispro 100 Unit/Ml SUB-Q Not Given Q4HR [facility] Protocol Lansoprazole 30 mg 07/06/22 10:00 07/09/22 10:56 Lansoprazole 30 Mg Solutab FEEDTUBE 30 mg QDAY SHANTHI Administration Levothyroxine Sodium 112 mcg 07/05/22 12:00 07/09/22 10:56 Levothyroxine 112 Mcg Tab FEEDTUBE 112 mcg QAM SHANTHI Administration Mirtazapine 15 mg 07/07/22 22:00 07/09/22 22:00 Mirtazapine 15 Mg Solutab PO 15 mg QHS [facility] Administration Multi-Ingred Cream/Lotion/Oil/Oint 1 applic 07/05/22 11:00 Mineral Oil/Petrolatum, White Ophth Oint 3.5 Gm OU Q4H PRN Dry Eye(s) Nicotine 21 mg 07/04/22 15:00 07/09/22 10:56 Nicotine 21 Mg/24 Hr Patch TD 21 mg QDAY SHANTHI Administration Ondansetron HCl 4 mg 06/28/22 03:09 06/28/22 05:44 Ondansetron 4 Mg/2 Ml Inj IV 4 mg Q8H PRN Administration Nausea And Vomiting Senna/Docusate Sodium 1 tab 07/05/22 11:00 07/09/22 21:45 Sennosides/Docusate Sodium 8.6/50 Mg Tab FEEDTUBE Not Given BID SHANTHI Simple Syrup 15 ml 07/05/22 11:00 Simple Syrup 15 Ml FEEDTUBE PRN PRN Hypoglycemia Simple Syrup 30 ml 07/05/22 11:00 Simple Syrup 15 Ml FEEDTUBE PRN PRN Hypoglycemia Sodium Bicarbonate 325 mg 07/05/22 10:26 Sodium Bicarbonate 325 Mg Tab FEEDTUBE PRN PRN For Clogged Feeding Tube Sodium Chloride 10 ml 06/28/22 10:00 07/09/22 21:45 Sodium Chloride 0.9% 10 Ml Flush Syringe IV 10 ml BID SHANTHI Administration Sodium Chloride 10 ml 06/28/22 03:09 Sodium Chloride 0.9% 10 Ml Flush Syringe IV PRN PRN LINE FLUSH Valproic Acid 250 mg 07/08/22 18:00 07/10/22 06:01 Valproic Acid 250 Mg/5 Ml Oral Liqd FEEDTUBE Not Given Q6HR [facility] Nutrition/Malnutrition Assess - Dietary Evaluation Nutrition/Malnutrition Findings: Nutrition Notes Start: 06/28/22 11:39 Freq: Status: Active Protocol: Document 07/07/22 13:47 CHRISTAL (Rec: 07/07/22 14:11 CHRISTAL [id number]) Nutrition Notes Initial or Follow up Reassessment Current Diagnosis COPD,Diabetes,Hypertension Other Pertinent Diagnosis S/p PEA/ROSC, s/p STEFFANIE, s/p DKA , DVT s/p LE Angioplasty. Current Diet TF-Vital High Protein @ 65 ml/ hr (from D 07/05). Labs/Tests 07/07: CO2 31, BUN 21. Pertinent Medications 07/07: Levothyroxine, Propofol @ 4.188 ml/hr (111Kcal), others nutritionally unremarkable. Height 5 ft 4 in Weight 139.6 kg [place] Body Weight (kg) 54.54 BMI 52.8 Weight change and time frame No body weight change reported in 9 days. Weight Status Morbidly Obese Subjective/Other Information RD consult for TF tolerance/ continuation assessment. TF continues as prescribed, no further information on TF tolerance at the time, will assess aF/U. Pt continues on Mechanical Ventilation, O2 saturation @ 98%, and will continue off sedation, according to Physical Assessment History notes. Pt has been producing 1 BM daily no more constipation at the time, according to Physical Assessment History notes. Percent of energy/protein needs met: Prescribed TF-Vital High Protein @ 65 ml/hr provides for energy/protein needs (1, 550 Kcal/136 g) during LOS, 101% Kcal; 100% AA. Burn Absent Trauma Absent GI Symptoms None Food Allergy No Skin Integrity/Comment Bilateral LE redness/echimosis . Current % PO Other Minimum of two criteria No Fluid Accumulation N/A Reduced Bank Runner Strength N/A (non-severe) Protein-Calorie Malnutrition N\A #2 Nutrition Diagnosis Inadequate oral intake Diagnosis Progress(for reassessment Continues documentation) #1 Nutrition Diagnosis Overweight/obesity Diagnosis Progress(for reassessment Continues documentation) Is patient on ventilator? Yes Is Patient Ambulatory and/or Out of Bed No REE-(Quay-St. Jeor-confined to bed) 2392.512 Kcal/Kg value to use for calculation 11 Approximate Energy Requirements Using 1536 kcal/Kg Calculation Used for Recommendations Kcal/kg Additional Notes Protein: 1.2-2 g/Kg AdjBW; 115 -196 g/day. Fluids: 1 ml/Kcal, or as per MD. Nutrition Intervention Nutrition Support: Continue TF-Vital High Protein @ 65 ml/hr. Flush: 50 ml Q 4 hr, or as per MD. Kcal 1,550 Protein (gm) 136 Carbohydrates (gm) 174 Fat (gm) 36 Fluid (mL) 1,296 Fiber (gm) 0 % RDI: 101% Kcal; 100% AA. Goal #1 Provide at least 75% of energy /protein needs through Enteral Feeding during LOS. Follow-Up By: 07/13/22 Additional Comments Start monitoring TF tolerance, ventilation status, and BM.
[2022-07-10] MEDS: NICOTINE 21 MG/24 HR PATCH TD SCH (10:59)
[2022-07-10] MEDS ORDERED: FUROSEMIDE 40 MG/4 ML INJ IV SCH (11:00)
--- NOTE | 2022-07-10 12:00 | XRay Report ---
ABDOMEN 1 VIEW, 07/10/2022 INDICATION / CLINICAL INFORMATION: Dobbhoff tube placement COMPARISON: Abdominal radiograph, 07/05/2022 at 10:28 AM FINDINGS: TUBES / LINES: Esophagogastric tube has been removed. There has been interval placement of a weighted feeding tube with tip overlying the expected position of the distal stomach. BOWEL GAS PATTERN: Visualized portions of the abdomen demonstrate a nonobstructed bowel gas pattern. ADDITIONAL FINDINGS: No significant additional findings. IMPRESSION: 1. Interval placement of weighted feeding tube with tip projecting over the expected position of the distal stomach. Signer Name: Allie Barrett MD Signed: 07/10/2022 11:56 AM Workstation Name: [id number]
--- NOTE | 2022-07-10 12:13 | Progress Note ---
Subjective - Reason for Consult Consult date: 07/10/22 Reason for consult: hx of bipolar - Chief Complaint Chief complaint: The patient was seen today, she is now extabated. The patient is on bipap after some difficulty breathing. She is awake and follows commands. She she her anxiety is better but she didn't sleep well. She answers these questions by shaking and nodding her head. The nurse says overall the patient has been doing okay, but was placed on the bipap for difficulty breathing for possible food particles at the back of her throat. She says the Haldol was discontinued due to this. ROS On ventilator MENTAL STATUS EXAMINATION General Appearance and Behavior: Intubated Cooperation: cooperative Psychomotor Behavior: unable to assess Mood: Anxious Affect and affective range: congruent with stated mood Thought Process: unable to assess Thought Content: unable to assess Speech: patient intubated; unable to assess Suicidal Ideation: Denies Homicidal Ideation: Denies Hallucination: Denies Delusions: unable to assess Impulse Control: Normal Insight and Judgment: unable to assess Memory: Limited Attention: sedated Orientation: unable to assess ASSESSMENT Bipolar disorder TREATMENT Mirtazepine solutab 15mg po qhs to promote rest Changed to Valproic sodium IV q12h (national shortaged, changed back to po) Risks, benefits and alternatives of medications discussed with the patient, questions answered and consent obtained from patient. PSYCHOTHERAPY: Supportive psychotherapy provided MEDICAL: Per primary team DELIRIUM PRECAUTIONS: Please re-orient patient frequently, keep lights on during the day, and minimize benzodiazepines and opiates as these medications could worsen patient's confusion. 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 FOLLOW-UP: Will follow Thank you for the consult. Please contact with any questions and/or concerns. Case staffed with Dr. Andrews Mental Status Exam - Vital signs Last Vital Signs Temp 98.1 F 07/10/22 11:20 Pulse 77 07/10/22 11:00 Resp 33 H 07/10/22 11:00 BP 164/73 07/10/22 11:00 Pulse Ox 86 07/10/22 11:00
[2022-07-10] MEDS: SENNOSIDES/DOCUSATE SODIUM 8.6/50 MG TAB FEEDTUBE SCH ×2 (12:25→22:24)
[2022-07-10] MEDS: APIXABAN 5 MG TAB FEEDTUBE SCH ×2 (12:25→22:30)
[2022-07-10] MEDS: LANSOPRAZOLE 30 MG SOLUTAB FEEDTUBE SCH (12:25)
[2022-07-10] MEDS: LEVOTHYROXINE 112 MCG TAB FEEDTUBE SCH (12:25)
[2022-07-10] MEDS: FREE WATER PO SCH ×4 (12:26→22:25)
--- NOTE | 2022-07-10 13:13 | Progress Note ---
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 With history of recent extensive venous thromboembolism, most likely etiology to pursue is acute pulmonary embolism, in addition to other pulmonary etiologies such as sleep apnea, pulmonary atelectasis. Unlikely primary cardiac event. Defer to internal medicine and pulmonary for work-up of pulmonary causes of acute respiratory failure. Echocardiogram shows normal left ventricular chamber size and systolic function with ejection fraction 60 to 65%. Conversely, there is moderate dilatation of the right heart chambers, with normal pulmonary artery pressure. (2) Paroxysmal atrial fibrillation Current Visit: Yes Status: Acute Plan to address problem: Patient has paroxysmal atrial fibrillation, with underlying right bundle branch block, findings are chronic. She is on long-term anticoagulation with Eliquis for her venous thromboembolism. Patient is currently in a stable sinus rhythm. Continue current management. Subjective Date of service: 07/10/22 Principal diagnosis: AHRF; DKA; Hyperkalemia; COPD; ? cellulitis; PVD; STEFFANIE; M orbid obesity; ?JACKLYN Interval history: Patient is extubated, breathing comfortably on facemask oxygen. 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 No new cardiac events reported. Objective Vital Signs Temp Pulse Pulse Resp BP Pulse Ox 07/10/22 11:20 98.1 F 07/10/22 11:00 77 33 H 164/73 86 07/10/22 10:00 75 31 H 149/68 89 07/10/22 09:00 77 31 H 135/63 89 07/10/22 08:00 69 69 28 H 135/63 94 07/10/22 07:59 98.1 F 07/10/22 07:00 68 26 H 130/62 99 07/10/22 06:00 73 21 141/69 94 07/10/22 05:00 71 28 H 131/62 98 07/10/22 04:00 74 74 28 H 125/66 96 07/10/22 03:00 75 29 H 130/59 95 07/10/22 02:00 78 29 H 155/69 97 07/10/22 01:00 77 26 H 155/69 94 07/10/22 00:59 97.6 F 07/10/22 00:00 78 78 27 H 157/68 97 07/09/22 23:04 79 28 H 147/68 96 07/09/22 23:00 78 27 H 147/68 98 07/09/22 22:00 77 25 H 135/67 97 07/09/22 21:17 96 07/09/22 21:00 75 27 H 131/59 100 07/09/22 20:00 98.8 F 75 75 29 H 163/71 91 07/09/22 19:00 75 29 H 163/71 92 07/09/22 18:00 68 22 139/66 97 07/09/22 17:00 72 25 H 139/66 95 07/09/22 16:37 98.0 F 07/09/22 16:00 73 73 17 117/55 90 07/09/22 15:00 66 23 119/59 96 07/09/22 14:54 98 07/09/22 14:00 66 23 117/55 97 - Physical Examination General: No Apparent Distress HEENT: Positive: PERRL Neck: Positive: neck supple Cardiac: Positive: Reg Rate and Rhythm Lungs: Positive: Decreased Breath Sounds Neuro: Positive: Weakness (Generalized lethargy) Abdomen: Positive: Soft Skin: Positive: Clear Extremities: Absent: edema - Labs and Meds Cardiac Enzymes 07/10/22 Range/Units 04:21 AST 18 (5-40) units/L CBC 07/10/22 Range/Units 04:21 WBC 8.3 (4.5-11.0) K/mm3 RBC 3.55 L (3.65-5.03) M/mm3 Hgb 10.6 (10.1-14.3) gm/dl Hct 33.3 (30.3-42.9) % Plt Count 191 (140-440) K/mm3 Comprehensive Metabolic Panel 07/10/22 Range/Units 04:21 Sodium 148 H (137-145) mmol/L Potassium 4.7 (3.6-5.0) mmol/L Chloride 105.7 (98-107) mmol/L Carbon Dioxide 32 H (22-30) mmol/L BUN 31 H (7-17) mg/dL Creatinine 0.9 (0.6-1.2) mg/dL Glucose 253 H (65-100) mg/dL Calcium 9.7 (8.4-10.2) mg/dL AST 18 (5-40) units/L ALT 30 (7-56) units/L Alkaline Phosphatase 84 (35-129) units/L Total Protein 6.0 L (6.3-8.2) g/dL Albumin 2.9 L (3.9-5) g/dL - Allied health notes Allied health notes reviewed: RT
--- NOTE | 2022-07-10 13:34 | XRay Report ---
CHEST 1 VIEW 07/10/2022 10:23 AM INDICATION / CLINICAL INFORMATION: Hypoxia. COMPARISON: 07/09/2022 FINDINGS: SUPPORT DEVICES: Right PICC line tip overlies SVC HEART / MEDIASTINUM: No significant abnormality. LUNGS / PLEURA: Increased opacity extending throughout the left lung with left effusion No pneumothor ax. Signer Name: Mitchel Jacobs MD Signed: 07/10/2022 1:29 PM Workstation Name: [id number]
[2022-07-10] MEDS ORDERED: ALBUTEROL 2.5 MG/3 ML NEBU IH PRN (19:44)
[2022-07-10] MEDS ORDERED: IPRATROPIUM/ALBUTEROL SULFATE 3 ML AMPUL.NEB IH SCH (20:00)
[2022-07-10] MEDS ORDERED: INSULIN GLARGINE 100 UNITS/ML SUB-Q SCH (22:00)
[2022-07-10] MEDS: IPRATROPIUM/ALBUTEROL SULFATE 3 ML AMPUL.NEB IH SCH (22:00)
[2022-07-10] MEDS: MIRTAZAPINE 15 MG SOLUTAB PO SCH (22:31)
[2022-07-11] MEDS: INSULIN LISPRO 100 UNIT/ML SUB-Q SCH ×6 (02:26→22:18)
[2022-07-11] MEDS: FREE WATER PO SCH ×6 (02:27→22:31)
[2022-07-11] MEDS ORDERED: FUROSEMIDE 40 MG/4 ML INJ IV STA (02:50)
[2022-07-11] MEDS: IPRATROPIUM/ALBUTEROL SULFATE 3 ML AMPUL.NEB IH SCH ×4 (03:00→19:35)
[2022-07-11] MEDS: VALPROIC ACID 250 MG/5 ML ORAL LIQD FEEDTUBE SCH ×3 (05:20→17:35)
[2022-07-11 05:23] LABS: Amphetamine Screen,Urine Negative; Benzodiazepines Screen,Urine Negative; Cannabinoid Screen,Urine Negative; Cocaine Screen,Urine Negative; Methadone Screen,Urine Negative; Opiate Screen,Urine Negative
[2022-07-11 05:49] LABS: BUN/Creatinine Ratio 33; Blood Urea Nitrogen 26 mg/dL (7-17); Calcium 9.7 mg/dL (8.4-10.2); Hemolysis Index 17
--- NOTE | 2022-07-11 08:33 | Progress Note ---
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 Non-insulin dependent type II diabetes mellitus with hyperglycemia Hypertension Hyperlipidemia Hypothyroidism H/O COPD Bipolar Disorder Tobacco use disorder/Nicotine dependence Morbid obesity Hypernatremia -Titrate supplemental oxygen to keep SpO2 89-92% -Vapotherm during the day, BIPAP at night -Aspiration precautions HOB>30 -Stress ulcer prophylaxis- Famotidine -VTE prophylaxis-on therapeutic Apixaban -ABG and CXR as clinically indicated -Enteric nutrition support, tube feeding -RAISIN SEPARATOR OPERATOR for dysphagia screen -PT/OT, incentive spirometry, increase activity -Mobility, off loading and frequent turning per facility protocol to prevent pressure ulcers -Trend temperature curve and WCC -Maintain euglycemia. Keep blood glucose 140-180mg/dL while critically ill. Avoid hypoglycemia -Supportive transfusions as clinically indicated to keep HgB >7g/dL -Continue Nicotine patch and nicotine withdrawal precautions -Intermittent diuretics as tolerated by renal function, and hemodynamics Discussed with respiratory care, nursing care and clinical pharmacist on IDT Continue ICU admission for now CONDITION: FAIR PROGNOSIS: GUARDED CODE STATUS: FULL CODE Subjective Date of service: 07/11/22 Principal diagnosis: AHRF; DKA; Hyperkalemia; COPD; ? cellulitis; PVD; STEFFANIE; Morbid obesity; ?JACKLYN Interval history: Patient is seen today for: Acute hypoxemic respiratory failure; DKA; H yperkalemia; COPD; Possible cellulitis; PVD; STEFFANIE; Morbid obesity Seen and examined at bedside; 24hour events reviewed; nursing and respiratory care staff consulted; no adverse overnight events reported to me; s/p cardiac arrest ,asystole with ROSC. Extubated 2 days ago, requiring BIPAP support at night. Currently on HFOT-Vapotherm at 25L 60%, SBFT in nares , on tube feeding at 20ml Positive fluid balance, received one dose of Furosemide this morning. Obeying commands- she states she wants to eat and drink Objective Vital Signs - 12hr 07/10/22 07/10/22 07/10/22 21:00 22:00 22:30 Temperature Pulse Rate 85 86 Pulse Rate [ 84 Anterior Throughout] Respiratory 32 H 31 H 26 H Rate Respiratory 30 H Rate [Anterior Throughout] Respiratory Rate [Bilateral Leg] Respiratory Rate [Lower Back] Blood Pressure 152/67 160/73 O2 Sat by Pulse 96 99 94 Oximetry 07/10/22 07/10/22 07/10/22 23:00 23:07 23:21 Temperature Pulse Rate 88 87 Pulse Rate [ Anterior Throughout] Respiratory 31 H 29 H 28 H Rate Respiratory Rate [Anterior Throughout] Respiratory Rate [Bilateral Leg] Respiratory Rate [Lower Back] Blood Pressure 156/75 156/75 O2 Sat by Pulse 100 100 94 Oximetry 07/11/22 07/11/22 07/11/22 00:00 01:01 01:34 Temperature 99.6 F Pulse Rate 90 76 76 Pulse Rate [ Anterior Throughout] Respiratory 24 30 H Rate Respiratory Rate [Anterior Throughout] Respiratory 35 H Rate [Bilateral Leg] Respiratory 35 H Rate [Lower Back] Blood Pressure 159/76 130/66 O2 Sat by Pulse 98 99 Oximetry 07/11/22 07/11/22 07/11/22 02:00 02:55 03:00 Temperature Pulse Rate 89 93 H Pulse Rate [ 97 H Anterior Throughout] Respiratory 34 H 39 H Rate Respiratory 35 H Rate [Anterior Throughout] Respiratory Rate [Bilateral Leg] Respiratory Rate [Lower Back] Blood Pressure 154/68 181/82 O2 Sat by Pulse 88 95 95 Oximetry 07/11/22 07/11/22 07/11/22 03:22 03:39 03:45 Temperature Pulse Rate 97 H Pulse Rate [ Anterior Throughout] Respiratory 38 H 38 H 37 H Rate Respiratory Rate [Anterior Throughout] Respiratory 35 H Rate [Bilateral Leg] Respiratory 35 H Rate [Lower Back] Blood Pressure 174/94 O2 Sat by Pulse 94 94 97 Oximetry 07/11/22 07/11/22 07/11/22 04:00 04:05 04:30 Temperature 99.4 F Pulse Rate 94 H 87 Pulse Rate [ Anterior Throughout] Respiratory 35 H 24 Rate Respiratory Rate [Anterior Throughout] Respiratory 35 H Rate [Bilateral Leg] Respiratory 35 H Rate [Lower Back] Blood Pressure 171/93 124/74 O2 Sat by Pulse 99 100 Oximetry 07/11/22 07/11/22 07/11/22 05:00 06:00 07:00 Temperature 99.4 F Pulse Rate 83 84 77 Pulse Rate [ Anterior Throughout] Respiratory 13 24 14 Rate Respiratory Rate [Anterior Throughout] Respiratory Rate [Bilateral Leg] Respiratory Rate [Lower Back] Blood Pressure 128/70 132/60 110/65 O2 Sat by Pulse 97 96 99 Oximetry 07/11/22 07:20 Temperature Pulse Rate Pulse Rate [ 80 Anterior Throughout] Respiratory Rate Respiratory 22 Rate [Anterior Throughout] Respiratory Rate [Bilateral Leg] Respiratory Rate [Lower Back] Blood Pressure O2 Sat by Pulse 98 Oximetry Constitutional: no acute distress, alert, other (Vapotherm) Eyes: non-icteric ENT: oropharynx moist Neck: supple, no lymphadenopathy, no JVD, other (large circumference) Effort: normal Ascultation: Bilateral: clear, diminished breath sounds (upper airway sounds) Percussion: Bilateral: not dull Cardiovascular: regular rate and rhythm, other (S1S2) Gastrointestinal: normoactive bowel sounds, non-tender, tender, non-distended Integumentary: rash (shins), other (erythema to shins) Extremities: no cyanosis, pink and warm, no ischemia or petechiae, edema (trace to 1+) Neurologic: normal mental status, non-focal exam (grossly), pupils equal and round, CN II-XII normal Psychiatric: mood appropriate, affect normal CBC and BMP: 07/10/22 04:21 07/11/22 04:00 ABG, PT/INR, D-dimer: ABG ABG pH 7.352 pH Units (7.350-7.450) 07/09/22 11:35 ABG pCO2 57.9 mm Hg 07/09/22 11:35 ABG pO2 74.0 mm Hg (80.0-90.0) L 07/09/22 11:35 ABG O2 Saturation 95.2 % (95.0-99.0) 07/09/22 11:35 PT/INR, D-dimer PT 17.3 Sec. (12.2-14.9) H 07/02/22 20:28 INR 1.26 (0.87-1.13) H 07/02/22 20:28 Abnormal lab findings: Abnormal Labs 06/27/22 06/27/22 06/27/22 20:48 20:48 23:56 WBC 18.7 H RBC Hgb 15.1 H Hct 47.1 H Plt Count Lymph % (Auto) 6.3 L Clinch % (Auto) Lymph # (Auto) Clinch # (Auto) 0.9 H Seg Neutrophils % 88.6 H Seg Neuts % (Manual) Lymphocytes % (Manual) Seg Neutrophils # 16.5 H Seg Neutrophils # Man Lymphocytes # (Manual) PT INR APTT Heparin Anti-Xa Level ABG pH ABG pO2 ABG HCO3 ABG O2 Saturation ABG Base Excess ABG Hemoglobin Oxyhemoglobin Sodium 123 L 121 L Potassium 6.9 H* 6.4 H* Chloride 82.4 L 79.7 L Carbon Dioxide 7 L* 8 L* BUN 50 H 54 H Creatinine 2.2 H 2.5 H Glucose 578 H* 562 H* POC Glucose Hemoglobin A1c Calcium Phosphorus 10.40 H Magnesium 2.70 H 2.60 H AST 50 H Troponin T 0.080 H NT-Pro-B Natriuret Pep 4137 H Total Protein Albumin 3.1 L Triglycerides 349 H LDL Cholesterol Direct 37 L HDL Cholesterol 38 L PTH Intact Urine Creatinine Urine Total Protein 06/28/22 06/28/22 06/28/22 01:45 03:17 03:35 WBC RBC Hgb Hct Plt Count Lymph % (Auto) Clinch % (Auto) Lymph # (Auto) Clinch # (Auto) Seg Neutrophils % Seg Neuts % (Manual) Lymphocytes % (Manual) Seg Neutrophils # Seg Neutrophils # Man Lymphocytes # (Manual) PT INR APTT Heparin Anti-Xa Level ABG pH ABG pO2 ABG HCO3 ABG O2 Saturation ABG Base Excess ABG Hemoglobin Oxyhemoglobin Sodium 120 L 121 L Potassium 6.2 H* 5.4 H Chloride 79.1 L 84.7 L Carbon Dioxide 7 L* 7 L* BUN 55 H 57 H Creatinine 2.6 H 2.6 H Glucose 551 H* 486 H POC Glucose 568 H Hemoglobin A1c Calcium 8.1 L 7.7 L Phosphorus Magnesium AST Troponin T NT-Pro-B Natriuret Pep Total Protein Albumin Triglycerides LDL Cholesterol Direct HDL Cholesterol PTH Intact Urine Creatinine Urine Total Protein 06/28/22 06/28/22 06/28/22 03:35 04:05 05:13 WBC RBC Hgb Hct Plt Count Lymph % (Auto) Clinch % (Auto) Lymph # (Auto) Clinch # (Auto) Seg Neutrophils % Seg Neuts % (Manual) Lymphocytes % (Manual) Seg Neutrophils # Seg Neutrophils # Man Lymphocytes # (Manual) PT INR APTT Heparin Anti-Xa Level ABG pH ABG pO2 ABG HCO3 ABG O2 Saturation ABG Base Excess ABG Hemoglobin Oxyhemoglobin Sodium Potassium Chloride Carbon Dioxide BUN Creatinine Glucose POC Glucose 508 H 443 H Hemoglobin A1c Calcium Phosphorus 9.20 H Magnesium AST Troponin T NT-Pro-B Natriuret Pep Total Protein Albumin Triglycerides LDL Cholesterol Direct HDL Cholesterol PTH Intact Urine Creatinine Urine Total Protein 06/28/22 06/28/22 06/28/22 05:40 06:30 07:39 WBC RBC Hgb Hct Plt Count Lymph % (Auto) Clinch % (Auto) Lymph # (Auto) Clinch # (Auto) Seg Neutrophils % Seg Neuts % (Manual) Lymphocytes % (Manual) Seg Neutrophils # Seg Neutrophils # Man Lymphocytes # (Manual) PT INR APTT Heparin Anti-Xa Level ABG pH ABG pO2 ABG HCO3 ABG O2 Saturation ABG Base Excess ABG Hemoglobin Oxyhemoglobin Sodium 124 L Potassium 5.1 H Chloride 86.5 L Carbon Dioxide 13 L BUN 59 H Creatinine 2.6 H Glucose 396 H POC Glucose 419 H 377 H Hemoglobin A1c Calcium 8.0 L Phosphorus Magnesium AST Troponin T NT-Pro-B Natriuret Pep Total Protein Albumin Triglycerides LDL Cholesterol Direct HDL Cholesterol PTH Intact Urine Creatinine Urine Total Protein 06/28/22 06/28/22 06/28/22 08:10 08:18 09:32 WBC RBC Hgb Hct Plt Count Lymph % (Auto) Clinch % (Auto) Lymph # (Auto) Clinch # (Auto) Seg Neutrophils % Seg Neuts % (Manual) Lymphocytes % (Manual) Seg Neutrophils # Seg Neutrophils # Man Lymphocytes # (Manual) PT INR APTT Heparin Anti-Xa Level ABG pH ABG pO2 ABG HCO3 ABG O2 Saturation ABG Base Excess ABG Hemoglobin Oxyhemoglobin Sodium Potassium Chloride Carbon Dioxide BUN Creatinine Glucose POC Glucose 390 H 347 H Hemoglobin A1c Calcium Phosphorus Magnesium AST Troponin T NT-Pro-B Natriuret Pep Total Protein Albumin Triglycerides LDL Cholesterol Direct HDL Cholesterol PTH Intact Urine Creatinine 85.4 H Urine Total Protein 49 H 06/28/22 06/28/22 06/28/22 10:46 11:40 12:40 WBC RBC Hgb Hct Plt Count Lymph % (Auto) Clinch % (Auto) Lymph # (Auto) Clinch # (Auto) Seg Neutrophils % Seg Neuts % (Manual) Lymphocytes % (Manual) Seg Neutrophils # Seg Neutrophils # Man Lymphocytes # (Manual) PT INR APTT Heparin Anti-Xa Level ABG pH ABG pO2 ABG HCO3 ABG O2 Saturation ABG Base Excess ABG Hemoglobin Oxyhemoglobin Sodium Potassium Chloride Carbon Dioxide BUN Creatinine Glucose POC Glucose 313 H 274 H 258 H Hemoglobin A1c Calcium Phosphorus Magnesium AST Troponin T NT-Pro-B Natriuret Pep Total Protein Albumin Triglycerides LDL Cholesterol Direct HDL Cholesterol PTH Intact Urine Creatinine Urine Total Protein 06/28/22 06/28/22 06/28/22 13:38 14:13 14:13 WBC 19.7 H RBC 5.33 H Hgb 16.2 H Hct 49.4 H Plt Count Lymph % (Auto) Clinch % (Auto) Lymph # (Auto) Clinch # (Auto) Seg Neutrophils % Seg Neuts % (Manual) Lymphocytes % (Manual) Seg Neutrophils # Seg Neutrophils # Man Lymphocytes # (Manual) PT INR APTT Heparin Anti-Xa Level ABG pH ABG pO2 ABG HCO3 ABG O2 Saturation ABG Base Excess ABG Hemoglobin Oxyhemoglobin Sodium 125 L Potassium 5.4 H Chloride 87.6 L Carbon Dioxide 18 L BUN 58 H Creatinine 2.5 H Glucose 199 H POC Glucose 205 H Hemoglobin A1c Calcium Phosphorus 6.90 H D Magnesium AST Troponin T NT-Pro-B Natriuret Pep Total Protein Albumin Triglycerides LDL Cholesterol Direct HDL Cholesterol PTH Intact Urine Creatinine Urine Total Protein 06/28/22 06/28/22 06/28/22 14:56 15:07 15:07 WBC RBC Hgb 15.5 H Hct 46.8 H Plt Count Lymph % (Auto) Clinch % (Auto) Lymph # (Auto) Clinch # (Auto) Seg Neutrophils % Seg Neuts % (Manual) Lymphocytes % (Manual) Seg Neutrophils # Seg Neutrophils # Man Lymphocytes # (Manual) PT INR APTT Heparin Anti-Xa Level ABG pH ABG pO2 ABG HCO3 ABG O2 Saturation ABG Base Excess ABG Hemoglobin Oxyhemoglobin Sodium 128 L Potassium 5.3 H Chloride 94.0 L Carbon Dioxide 14 L BUN 59 H Creatinine 2.4 H Glucose 183 H POC Glucose 194 H Hemoglobin A1c Calcium 7.8 L Phosphorus Magnesium AST Troponin T NT-Pro-B Natriuret Pep Total Protein Albumin Triglycerides LDL Cholesterol Direct HDL Cholesterol PTH Intact Urine Creatinine Urine Total Protein 06/28/22 06/28/22 06/28/22 15:07 15:54 17:10 WBC RBC Hgb Hct Plt Count Lymph % (Auto) Clinch % (Auto) Lymph # (Auto) Clinch # (Auto) Seg Neutrophils % Seg Neuts % (Manual) Lymphocytes % (Manual) Seg Neutrophils # Seg Neutrophils # Man Lymphocytes # (Manual) PT 19.6 H INR 1.47 H APTT Heparin Anti-Xa Level ABG pH ABG pO2 ABG HCO3 ABG O2 Saturation ABG Base Excess ABG Hemoglobin Oxyhemoglobin Sodium Potassium Chloride Carbon Dioxide BUN Creatinine Glucose POC Glucose 189 H 216 H Hemoglobin A1c Calcium Phosphorus Magnesium AST Troponin T NT-Pro-B Natriuret Pep Total Protein Albumin Triglycerides LDL Cholesterol Direct HDL Cholesterol PTH Intact Urine Creatinine Urine Total Protein 06/28/22 06/28/22 06/28/22 17:59 18:54 19:49 WBC RBC Hgb Hct Plt Count Lymph % (Auto) Clinch % (Auto) Lymph # (Auto) Clinch # (Auto) Seg Neutrophils % Seg Neuts % (Manual) Lymphocytes % (Manual) Seg Neutrophils # Seg Neutrophils # Man Lymphocytes # (Manual) PT INR APTT Heparin Anti-Xa Level ABG pH ABG pO2 ABG HCO3 ABG O2 Saturation ABG Base Excess ABG Hemoglobin Oxyhemoglobin Sodium Potassium Chloride Carbon Dioxide BUN Creatinine Glucose POC Glucose 195 H 178 H 166 H Hemoglobin A1c Calcium Phosphorus Magnesium AST Troponin T NT-Pro-B Natriuret Pep Total Protein Albumin Triglycerides LDL Cholesterol Direct HDL Cholesterol PTH Intact Urine Creatinine Urine Total Protein 06/28/22 06/28/22 06/28/22 20:31 20:31 20:31 WBC RBC Hgb Hct Plt Count Lymph % (Auto) Clinch % (Auto) Lymph # (Auto) Clinch # (Auto) Seg Neutrophils % Seg Neuts % (Manual) Lymphocytes % (Manual) Seg Neutrophils # Seg Neutrophils # Man Lymphocytes # (Manual) PT INR APTT Heparin Anti-Xa Level 0.19 L ABG pH ABG pO2 ABG HCO3 ABG O2 Saturation ABG Base Excess ABG Hemoglobin Oxyhemoglobin Sodium 129 L Potassium 5.1 H Chloride 95.6 L Carbon Dioxide 15 L BUN 59 H Creatinine 2.4 H Glucose 145 H POC Glucose Hemoglobin A1c 9.7 H Calcium 8.0 L Phosphorus 6.40 H Magnesium AST Troponin T NT-Pro-B Natriuret Pep Total Protein Albumin Triglycerides LDL Cholesterol Direct HDL Cholesterol PTH Intact Urine Creatinine Urine Total Protein 06/28/22 06/28/22 06/28/22 21:27 22:22 23:36 WBC RBC Hgb Hct Plt Count Lymph % (Auto) Clinch % (Auto) Lymph # (Auto) Clinch # (Auto) Seg Neutrophils % Seg Neuts % (Manual) Lymphocytes % (Manual) Seg Neutrophils # Seg Neutrophils # Man Lymphocytes # (Manual) PT INR APTT Heparin Anti-Xa Level ABG pH ABG pO2 ABG HCO3 ABG O2 Saturation ABG Base Excess ABG Hemoglobin Oxyhemoglobin Sodium Potassium Chloride Carbon Dioxide BUN Creatinine Glucose POC Glucose 131 H 148 H 146 H Hemoglobin A1c Calcium Phosphorus Magnesium AST Troponin T NT-Pro-B Natriuret Pep Total Protein Albumin Triglycerides LDL Cholesterol Direct HDL Cholesterol PTH Intact Urine Creatinine Urine Total Protein 06/29/22 06/29/22 06/29/22 00:21 01:27 02:54 WBC RBC Hgb Hct Plt Count Lymph % (Auto) Clinch % (Auto) Lymph # (Auto) Clinch # (Auto) Seg Neutrophils % Seg Neuts % (Manual) Lymphocytes % (Manual) Seg Neutrophils # Seg Neutrophils # Man Lymphocytes # (Manual) PT INR APTT Heparin Anti-Xa Level ABG pH ABG pO2 ABG HCO3 ABG O2 Saturation ABG Base Excess ABG Hemoglobin Oxyhemoglobin Sodium Potassium Chloride Carbon Dioxide BUN Creatinine Glucose POC Glucose 149 H 172 H 172 H Hemoglobin A1c Calcium Phosphorus Magnesium AST Troponin T NT-Pro-B Natriuret Pep Total Protein Albumin Triglycerides LDL Cholesterol Direct HDL Cholesterol PTH Intact Urine Creatinine Urine Total Protein 06/29/22 06/29/22 06/29/22 04:05 04:21 04:21 WBC 17.1 H RBC Hgb 14.6 H Hct 43.9 H Plt Count Lymph % (Auto) Clinch % (Auto) Lymph # (Auto) Clinch # (Auto) Seg Neutrophils % Seg Neuts % (Manual) Lymphocytes % (Manual) Seg Neutrophils # Seg Neutrophils # Man Lymphocytes # (Manual) PT INR APTT Heparin Anti-Xa Level ABG pH ABG pO2 ABG HCO3 ABG O2 Saturation ABG Base Excess ABG Hemoglobin Oxyhemoglobin Sodium 129 L Potassium Chloride 97.6 L Carbon Dioxide 15 L BUN 59 H Creatinine 2.1 H Glucose 140 H POC Glucose 167 H Hemoglobin A1c Calcium 8.0 L Phosphorus Magnesium AST Troponin T NT-Pro-B Natriuret Pep Total Protein Albumin Triglycerides LDL Cholesterol Direct HDL Cholesterol PTH Intact Urine Creatinine Urine Total Protein 06/29/22 06/29/22 06/29/22 04:21 06:27 07:31 WBC RBC Hgb Hct Plt Count Lymph % (Auto) Clinch % (Auto) Lymph # (Auto) Clinch # (Auto) Seg Neutrophils % Seg Neuts % (Manual) Lymphocytes % (Manual) Seg Neutrophils # Seg Neutrophils # Man Lymphocytes # (Manual) PT INR APTT Heparin Anti-Xa Level ABG pH ABG pO2 ABG HCO3 ABG O2 Saturation ABG Base Excess ABG Hemoglobin Oxyhemoglobin Sodium Potassium Chloride Carbon Dioxide BUN Creatinine Glucose POC Glucose 138 H 142 H Hemoglobin A1c Calcium Phosphorus Magnesium AST Troponin T NT-Pro-B Natriuret Pep Total Protein Albumin Triglycerides LDL Cholesterol Direct HDL Cholesterol PTH Intact 382.4 H Urine Creatinine Urine Total Protein 06/29/22 06/29/22 06/29/22 08:33 09:28 10:35 WBC RBC Hgb Hct Plt Count Lymph % (Auto) Clinch % (Auto) Lymph # (Auto) Clinch # (Auto) Seg Neutrophils % Seg Neuts % (Manual) Lymphocytes % (Manual) Seg Neutrophils # Seg Neutrophils # Man Lymphocytes # (Manual) PT INR APTT Heparin Anti-Xa Level ABG pH ABG pO2 ABG HCO3 ABG O2 Saturation ABG Base Excess ABG Hemoglobin Oxyhemoglobin Sodium Potassium Chloride Carbon Dioxide BUN Creatinine Glucose POC Glucose 141 H 167 H 152 H Hemoglobin A1c Calcium Phosphorus Magnesium AST Troponin T NT-Pro-B Natriuret Pep Total Protein Albumin Triglycerides LDL Cholesterol Direct HDL Cholesterol PTH Intact Urine Creatinine Urine Total Protein 06/29/22 06/29/22 06/29/22 10:47 11:30 12:33 WBC RBC Hgb Hct Plt Count Lymph % (Auto) Clinch % (Auto) Lymph # (Auto) Clinch # (Auto) Seg Neutrophils % Seg Neuts % (Manual) Lymphocytes % (Manual) Seg Neutrophils # Seg Neutrophils # Man Lymphocytes # (Manual) PT INR APTT Heparin Anti-Xa Level ABG pH ABG pO2 ABG HCO3 ABG O2 Saturation ABG Base Excess ABG Hemoglobin Oxyhemoglobin Sodium 131 L Potassium Chloride 94.4 L Carbon Dioxide 15 L BUN 59 H Creatinine 2.2 H Glucose 149 H POC Glucose 134 H 146 H Hemoglobin A1c Calcium Phosphorus 5.80 H Magnesium AST Troponin T NT-Pro-B Natriuret Pep Total Protein Albumin Triglycerides LDL Cholesterol Direct HDL Cholesterol PTH Intact Urine Creatinine Urine Total Protein 06/29/22 06/29/22 06/29/22 13:28 14:33 15:49 WBC RBC Hgb Hct Plt Count Lymph % (Auto) Clinch % (Auto) Lymph # (Auto) Clinch # (Auto) Seg Neutrophils % Seg Neuts % (Manual) Lymphocytes % (Manual) Seg Neutrophils # Seg Neutrophils # Man Lymphocytes # (Manual) PT INR APTT Heparin Anti-Xa Level ABG pH ABG pO2 ABG HCO3 ABG O2 Saturation ABG Base Excess ABG Hemoglobin Oxyhemoglobin Sodium Potassium Chloride Carbon Dioxide BUN Creatinine Glucose POC Glucose 170 H 188 H 155 H Hemoglobin A1c Calcium Phosphorus Magnesium AST Troponin T NT-Pro-B Natriuret Pep Total Protein Albumin Triglycerides LDL Cholesterol Direct HDL Cholesterol PTH Intact Urine Creatinine Urine Total Protein 06/29/22 06/29/22 06/29/22 16:14 16:14 16:45 WBC RBC Hgb Hct Plt Count Lymph % (Auto) Clinch % (Auto) Lymph # (Auto) Clinch # (Auto) Seg Neutrophils % Seg Neuts % (Manual) Lymphocytes % (Manual) Seg Neutrophils # Seg Neutrophils # Man Lymphocytes # (Manual) PT INR APTT Heparin Anti-Xa Level 0.19 L ABG pH ABG pO2 ABG HCO3 ABG O2 Saturation ABG Base Excess ABG Hemoglobin Oxyhemoglobin Sodium 128 L Potassium Chloride 95.8 L Carbon Dioxide 15 L BUN 52 H Creatinine 1.8 H Glucose 138 H POC Glucose 135 H Hemoglobin A1c Calcium 7.9 L Phosphorus Magnesium AST Troponin T NT-Pro-B Natriuret Pep Total Protein Albumin Triglycerides LDL Cholesterol Direct HDL Cholesterol PTH Intact Urine Creatinine Urine Total Protein 06/29/22 06/29/22 06/29/22 17:47 18:52 20:14 WBC RBC Hgb Hct Plt Count Lymph % (Auto) Clinch % (Auto) Lymph # (Auto) Clinch # (Auto) Seg Neutrophils % Seg Neuts % (Manual) Lymphocytes % (Manual) Seg Neutrophils # Seg Neutrophils # Man Lymphocytes # (Manual) PT INR APTT Heparin Anti-Xa Level ABG pH ABG pO2 ABG HCO3 ABG O2 Saturation ABG Base Excess ABG Hemoglobin Oxyhemoglobin Sodium Potassium Chloride Carbon Dioxide BUN Creatinine Glucose POC Glucose 150 H 123 H 155 H Hemoglobin A1c Calcium Phosphorus Magnesium AST Troponin T NT-Pro-B Natriuret Pep Total Protein Albumin Triglycerides LDL Cholesterol Direct HDL Cholesterol PTH Intact Urine Creatinine Urine Total Protein 06/29/22 06/29/22 06/29/22 20:17 21:11 21:53 WBC RBC Hgb Hct Plt Count Lymph % (Auto) Clinch % (Auto) Lymph # (Auto) Clinch # (Auto) Seg Neutrophils % Seg Neuts % (Manual) Lymphocytes % (Manual) Seg Neutrophils # Seg Neutrophils # Man Lymphocytes # (Manual) PT INR APTT Heparin Anti-Xa Level ABG pH ABG pO2 ABG HCO3 ABG O2 Saturation ABG Base Excess ABG Hemoglobin Oxyhemoglobin Sodium 131 L Potassium 5.5 H D Chloride Carbon Dioxide 15 L BUN 56 H Creatinine 2.0 H Glucose 146 H POC Glucose 152 H 165 H Hemoglobin A1c Calcium Phosphorus 5.20 H Magnesium AST Troponin T NT-Pro-B Natriuret Pep Total Protein Albumin Triglycerides LDL Cholesterol Direct HDL Cholesterol PTH Intact Urine Creatinine Urine Total Protein 06/29/22 06/30/22 06/30/22 23:07 00:18 00:58 WBC RBC Hgb Hct Plt Count Lymph % (Auto) Clinch % (Auto) Lymph # (Auto) Clinch # (Auto) Seg Neutrophils % Seg Neuts % (Manual) Lymphocytes % (Manual) Seg Neutrophils # Seg Neutrophils # Man Lymphocytes # (Manual) PT INR APTT Heparin Anti-Xa Level ABG pH ABG pO2 ABG HCO3 ABG O2 Saturation ABG Base Excess ABG Hemoglobin Oxyhemoglobin Sodium Potassium Chloride Carbon Dioxide BUN Creatinine Glucose POC Glucose 163 H 178 H 189 H Hemoglobin A1c Calcium Phosphorus Magnesium AST Troponin T NT-Pro-B Natriuret Pep Total Protein Albumin Triglycerides LDL Cholesterol Direct HDL Cholesterol PTH Intact Urine Creatinine Urine Total Protein 06/30/22 06/30/22 06/30/22 01:57 02:59 03:53 WBC RBC Hgb Hct Plt Count Lymph % (Auto) Clinch % (Auto) Lymph # (Auto) Clinch # (Auto) Seg Neutrophils % Seg Neuts % (Manual) Lymphocytes % (Manual) Seg Neutrophils # Seg Neutrophils # Man Lymphocytes # (Manual) PT INR APTT Heparin Anti-Xa Level ABG pH ABG pO2 ABG HCO3 ABG O2 Saturation ABG Base Excess ABG Hemoglobin Oxyhemoglobin Sodium Potassium Chloride Carbon Dioxide BUN Creatinine Glucose POC Glucose 150 H 147 H 122 H Hemoglobin A1c Calcium Phosphorus Magnesium AST Troponin T NT-Pro-B Natriuret Pep Total Protein Albumin Triglycerides LDL Cholesterol Direct HDL Cholesterol PTH Intact Urine Creatinine Urine Total Protein 06/30/22 06/30/22 06/30/22 04:56 05:25 05:52 WBC RBC Hgb Hct Plt Count Lymph % (Auto) Clinch % (Auto) Lymph # (Auto) Clinch # (Auto) Seg Neutrophils % Seg Neuts % (Manual) Lymphocytes % (Manual) Seg Neutrophils # Seg Neutrophils # Man Lymphocytes # (Manual) PT INR APTT Heparin Anti-Xa Level ABG pH ABG pO2 ABG HCO3 ABG O2 Saturation ABG Base Excess ABG Hemoglobin Oxyhemoglobin Sodium 132 L Potassium Chloride Carbon Dioxide 15 L BUN 53 H Creatinine 1.7 H Glucose 137 H POC Glucose 110 H 150 H Hemoglobin A1c Calcium Phosphorus Magnesium AST Troponin T NT-Pro-B Natriuret Pep Total Protein Albumin Triglycerides LDL Cholesterol Direct HDL Cholesterol PTH Intact Urine Creatinine Urine Total Protein 06/30/22 06/30/22 06/30/22 07:25 08:20 09:20 WBC RBC Hgb Hct Plt Count Lymph % (Auto) Clinch % (Auto) Lymph # (Auto) Clinch # (Auto) Seg Neutrophils % Seg Neuts % (Manual) Lymphocytes % (Manual) Seg Neutrophils # Seg Neutrophils # Man Lymphocytes # (Manual) PT INR APTT Heparin Anti-Xa Level ABG pH ABG pO2 ABG HCO3 ABG O2 Saturation ABG Base Excess ABG Hemoglobin Oxyhemoglobin Sodium Potassium Chloride Carbon Dioxide BUN Creatinine Glucose POC Glucose 133 H 119 H 128 H Hemoglobin A1c Calcium Phosphorus Magnesium AST Troponin T NT-Pro-B Natriuret Pep Total Protein Albumin Triglycerides LDL Cholesterol Direct HDL Cholesterol PTH Intact Urine Creatinine Urine Total Protein 06/30/22 06/30/22 06/30/22 10:21 10:59 11:25 WBC RBC Hgb Hct Plt Count Lymph % (Auto) Clinch % (Auto) Lymph # (Auto) Clinch # (Auto) Seg Neutrophils % Seg Neuts % (Manual) Lymphocytes % (Manual) Seg Neutrophils # Seg Neutrophils # Man Lymphocytes # (Manual) PT INR APTT Heparin Anti-Xa Level ABG pH ABG pO2 ABG HCO3 ABG O2 Saturation ABG Base Excess ABG Hemoglobin Oxyhemoglobin Sodium 132 L Potassium Chloride Carbon Dioxide 16 L BUN 49 H Creatinine 1.7 H Glucose 168 H POC Glucose 133 H 232 H Hemoglobin A1c Calcium 8.1 L Phosphorus Magnesium AST Troponin T NT-Pro-B Natriuret Pep Total Protein Albumin Triglycerides LDL Cholesterol Direct HDL Cholesterol PTH Intact Urine Creatinine Urine Total Protein 06/30/22 06/30/22 07/01/22 16:15 21:30 05:10 WBC RBC Hgb Hct Plt Count Lymph % (Auto) Clinch % (Auto) Lymph # (Auto) Clinch # (Auto) Seg Neutrophils % Seg Neuts % (Manual) Lymphocytes % (Manual) Seg Neutrophils # Seg Neutrophils # Man Lymphocytes # (Manual) PT INR APTT Heparin Anti-Xa Level 0.24 L ABG pH ABG pO2 ABG HCO3 ABG O2 Saturation ABG Base Excess ABG Hemoglobin Oxyhemoglobin Sodium Potassium Chloride Carbon Dioxide BUN Creatinine Glucose POC Glucose 325 H 279 H Hemoglobin A1c Calcium Phosphorus Magnesium AST Troponin T NT-Pro-B Natriuret Pep Total Protein Albumin Triglycerides LDL Cholesterol Direct HDL Cholesterol PTH Intact Urine Creatinine Urine Total Protein 07/01/22 07/01/22 07/01/22 05:10 07:38 09:13 WBC RBC Hgb Hct Plt Count Lymph % (Auto) Clinch % (Auto) Lymph # (Auto) Clinch # (Auto) Seg Neutrophils % Seg Neuts % (Manual) Lymphocytes % (Manual) Seg Neutrophils # Seg Neutrophils # Man Lymphocytes # (Manual) PT 15.9 H INR 1.14 H APTT Heparin Anti-Xa Level ABG pH ABG pO2 ABG HCO3 ABG O2 Saturation ABG Base Excess ABG Hemoglobin Oxyhemoglobin Sodium 132 L Potassium Chloride 97.8 L Carbon Dioxide 19 L BUN 34 H Creatinine 1.3 H Glucose 250 H POC Glucose 235 H Hemoglobin A1c Calcium Phosphorus Magnesium AST Troponin T NT-Pro-B Natriuret Pep Total Protein Albumin Triglycerides LDL Cholesterol Direct HDL Cholesterol PTH Intact Urine Creatinine Urine Total Protein 07/01/22 07/01/22 07/01/22 12:03 13:42 16:32 WBC RBC Hgb Hct Plt Count Lymph % (Auto) Clinch % (Auto) Lymph # (Auto) Clinch # (Auto) Seg Neutrophils % Seg Neuts % (Manual) Lymphocytes % (Manual) Seg Neutrophils # Seg Neutrophils # Man Lymphocytes # (Manual) PT INR APTT Heparin Anti-Xa Level 0.25 L ABG pH ABG pO2 ABG HCO3 ABG O2 Saturation ABG Base Excess ABG Hemoglobin Oxyhemoglobin Sodium Potassium Chloride Carbon Dioxide BUN Creatinine Glucose POC Glucose 272 H 316 H Hemoglobin A1c Calcium Phosphorus Magnesium AST Troponin T NT-Pro-B Natriuret Pep Total Protein Albumin Triglycerides LDL Cholesterol Direct HDL Cholesterol PTH Intact Urine Creatinine Urine Total Protein 07/01/22 07/01/22 07/02/22 21:21 23:14 07:41 WBC RBC Hgb Hct Plt Count Lymph % (Auto) Clinch % (Auto) Lymph # (Auto) Clinch # (Auto) Seg Neutrophils % Seg Neuts % (Manual) Lymphocytes % (Manual) Seg Neutrophils # Seg Neutrophils # Man Lymphocytes # (Manual) PT INR APTT Heparin Anti-Xa Level 0.27 L ABG pH ABG pO2 ABG HCO3 ABG O2 Saturation ABG Base Excess ABG Hemoglobin Oxyhemoglobin Sodium Potassium Chloride Carbon Dioxide BUN Creatinine Glucose POC Glucose 262 H 287 H Hemoglobin A1c Calcium Phosphorus Magnesium AST Troponin T NT-Pro-B Natriuret Pep Total Protein Albumin Triglycerides LDL Cholesterol Direct HDL Cholesterol PTH Intact Urine Creatinine Urine Total Protein 07/02/22 07/02/22 07/02/22 08:12 08:12 20:28 WBC RBC Hgb 14.7 H Hct 46.3 H Plt Count 138 L Lymph % (Auto) Clinch % (Auto) Lymph # (Auto) Clinch # (Auto) Seg Neutrophils % Seg Neuts % (Manual) Lymphocytes % (Manual) Seg Neutrophils # Seg Neutrophils # Man Lymphocytes # (Manual) PT INR APTT Heparin Anti-Xa Level 0.21 L ABG pH ABG pO2 ABG HCO3 ABG O2 Saturation ABG Base Excess ABG Hemoglobin Oxyhemoglobin Sodium 129 L Potassium Chloride 95.7 L Carbon Dioxide 17 L BUN 24 H Creatinine Glucose 275 H POC Glucose Hemoglobin A1c Calcium Phosphorus 2.10 L D Magnesium AST Troponin T NT-Pro-B Natriuret Pep Total Protein Albumin Triglycerides LDL Cholesterol Direct HDL Cholesterol PTH Intact Urine Creatinine Urine Total Protein 07/02/22 07/02/22 07/03/22 20:28 23:01 07:28 WBC RBC Hgb Hct Plt Count Lymph % (Auto) Clinch % (Auto) Lymph # (Auto) Clinch # (Auto) Seg Neutrophils % Seg Neuts % (Manual) Lymphocytes % (Manual) Seg Neutrophils # Seg Neutrophils # Man Lymphocytes # (Manual) PT 17.3 H INR 1.26 H APTT 24.1 L Heparin Anti-Xa Level ABG pH ABG pO2 ABG HCO3 ABG O2 Saturation ABG Base Excess ABG Hemoglobin Oxyhemoglobin Sodium Potassium Chloride Carbon Dioxide BUN Creatinine Glucose POC Glucose 340 H 261 H Hemoglobin A1c Calcium Phosphorus Magnesium AST Troponin T NT-Pro-B Natriuret Pep Total Protein Albumin Triglycerides LDL Cholesterol Direct HDL Cholesterol PTH Intact Urine Creatinine Urine Total Protein 09/20/22 09/20/22 09/20/22 11:30 12:20 16:23 WBC RBC Hgb Hct Plt Count Lymph % (Auto) Clinch % (Auto) Lymph # (Auto) Clinch # (Auto) Seg Neutrophils % Seg Neuts % (Manual) Lymphocytes % (Manual) Seg Neutrophils # Seg Neutrophils # Man Lymphocytes # (Manual) PT INR APTT Heparin Anti-Xa Level ABG pH ABG pO2 ABG HCO3 ABG O2 Saturation ABG Base Excess ABG Hemoglobin Oxyhemoglobin Sodium 134 L Potassium Chloride Carbon Dioxide BUN 18 H Creatinine Glucose 271 H POC Glucose 292 H 255 H Hemoglobin A1c Calcium Phosphorus Magnesium AST Troponin T NT-Pro-B Natriuret Pep Total Protein Albumin Triglycerides LDL Cholesterol Direct HDL Cholesterol PTH Intact Urine Creatinine Urine Total Protein 07/03/22 07/04/22 07/04/22 22:01 05:37 05:37 WBC RBC Hgb Hct Plt Count Lymph % (Auto) 8.4 L Clinch % (Auto) 10.1 H Lymph # (Auto) 0.8 L Clinch # (Auto) 1.0 H Seg Neutrophils % 80.6 H Seg Neuts % (Manual) Lymphocytes % (Manual) Seg Neutrophils # 8.0 H Seg Neutrophils # Man Lymphocytes # (Manual) PT INR APTT Heparin Anti-Xa Level ABG pH ABG pO2 ABG HCO3 ABG O2 Saturation ABG Base Excess ABG Hemoglobin Oxyhemoglobin Sodium Potassium Chloride Carbon Dioxide BUN Creatinine Glucose 217 H POC Glucose 281 H Hemoglobin A1c Calcium Phosphorus Magnesium AST Troponin T NT-Pro-B Natriuret Pep Total Protein Albumin Triglycerides LDL Cholesterol Direct HDL Cholesterol PTH Intact Urine Creatinine Urine Total Protein 07/04/22 07/04/22 07/04/22 07:40 11:15 11:52 WBC RBC Hgb Hct Plt Count Lymph % (Auto) Clinch % (Auto) Lymph # (Auto) Clinch # (Auto) Seg Neutrophils % Seg Neuts % (Manual) Lymphocytes % (Manual) Seg Neutrophils # Seg Neutrophils # Man Lymphocytes # (Manual) PT INR APTT Heparin Anti-Xa Level ABG pH 7.303 L ABG pO2 64.6 L ABG HCO3 ABG O2 Saturation 92.9 L ABG Base Excess ABG Hemoglobin 11.9 L Oxyhemoglobin 90.6 L Sodium Potassium Chloride Carbon Dioxide BUN Creatinine Glucose POC Glucose 211 H 267 H Hemoglobin A1c Calcium Phosphorus Magnesium AST Troponin T NT-Pro-B Natriuret Pep Total Protein Albumin Triglycerides LDL Cholesterol Direct HDL Cholesterol PTH Intact Urine Creatinine Urine Total Protein 07/04/22 07/04/22 07/05/22 16:51 22:03 07:48 WBC RBC Hgb Hct Plt Count Lymph % (Auto) Clinch % (Auto) Lymph # (Auto) Clinch # (Auto) Seg Neutrophils % Seg Neuts % (Manual) Lymphocytes % (Manual) Seg Neutrophils # Seg Neutrophils # Man Lymphocytes # (Manual) PT INR APTT Heparin Anti-Xa Level ABG pH ABG pO2 ABG HCO3 ABG O2 Saturation ABG Base Excess ABG Hemoglobin Oxyhemoglobin Sodium Potassium Chloride Carbon Dioxide BUN Creatinine Glucose POC Glucose 273 H 202 H 223 H Hemoglobin A1c Calcium Phosphorus Magnesium AST Troponin T NT-Pro-B Natriuret Pep Total Protein Albumin Triglycerides LDL Cholesterol Direct HDL Cholesterol PTH Intact Urine Creatinine Urine Total Protein 07/05/22 07/05/22 07/05/22 11:06 18:03 Unknown WBC 16.5 H RBC Hgb Hct Plt Count Lymph % (Auto) Clinch % (Auto) Lymph # (Auto) Clinch # (Auto) Seg Neutrophils % Seg Neuts % (Manual) 91.0 H Lymphocytes % (Manual) 1.0 L Seg Neutrophils # Seg Neutrophils # Man 15.0 H Lymphocytes # (Manual) 0.2 L PT INR APTT Heparin Anti-Xa Level ABG pH 7.313 L ABG pO2 102.1 H ABG HCO3 27.2 H ABG O2 Saturation ABG Base Excess ABG Hemoglobin 10.6 L Oxyhemoglobin Sodium Potassium Chloride Carbon Dioxide BUN Creatinine Glucose POC Glucose 219 H Hemoglobin A1c Calcium Phosphorus Magnesium AST Troponin T NT-Pro-B Natriuret Pep Total Protein Albumin Triglycerides LDL Cholesterol Direct HDL Cholesterol PTH Intact Urine Creatinine Urine Total Protein 07/05/22 07/06/22 07/06/22 Unknown 00:30 03:33 WBC RBC Hgb Hct Plt Count Lymph % (Auto) Clinch % (Auto) Lymph # (Auto) Clinch # (Auto) Seg Neutrophils % Seg Neuts % (Manual) Lymphocytes % (Manual) Seg Neutrophils # Seg Neutrophils # Man Lymphocytes # (Manual) PT INR APTT Heparin Anti-Xa Level ABG pH ABG pO2 142.7 H ABG HCO3 28.9 H ABG O2 Saturation ABG Base Excess 3.6 H ABG Hemoglobin 10.5 L Oxyhemoglobin Sodium Potassium Chloride Carbon Dioxide BUN Creatinine Glucose 290 H POC Glucose 199 H Hemoglobin A1c Calcium Phosphorus Magnesium AST Troponin T NT-Pro-B Natriuret Pep Total Protein Albumin Triglycerides LDL Cholesterol Direct HDL Cholesterol PTH Intact Urine Creatinine Urine Total Protein 07/06/22 07/06/22 07/06/22 04:00 04:00 06:00 WBC 11.4 H RBC 3.55 L Hgb Hct Plt Count Lymph % (Auto) Clinch % (Auto) Lymph # (Auto) Clinch # (Auto) Seg Neutrophils % Seg Neuts % (Manual) Lymphocytes % (Manual) Seg Neutrophils # Seg Neutrophils # Man Lymphocytes # (Manual) PT INR APTT Heparin Anti-Xa Level ABG pH ABG pO2 ABG HCO3 ABG O2 Saturation ABG Base Excess ABG Hemoglobin Oxyhemoglobin Sodium Potassium Chloride Carbon Dioxide BUN 22 H Creatinine 1.3 H Glucose 173 H POC Glucose 180 H Hemoglobin A1c Calcium Phosphorus Magnesium AST Troponin T NT-Pro-B Natriuret Pep Total Protein Albumin Triglycerides LDL Cholesterol Direct HDL Cholesterol PTH Intact Urine Creatinine Urine Total Protein 07/06/22 07/06/22 07/06/22 09:19 12:39 17:30 WBC RBC Hgb Hct Plt Count Lymph % (Auto) Clinch % (Auto) Lymph # (Auto) Clinch # (Auto) Seg Neutrophils % Seg Neuts % (Manual) Lymphocytes % (Manual) Seg Neutrophils # Seg Neutrophils # Man Lymphocytes # (Manual) PT INR APTT Heparin Anti-Xa Level ABG pH ABG pO2 ABG HCO3 ABG O2 Saturation ABG Base Excess ABG Hemoglobin Oxyhemoglobin Sodium Potassium Chloride Carbon Dioxide BUN Creatinine Glucose POC Glucose 198 H 179 H 106 H Hemoglobin A1c Calcium Phosphorus Magnesium AST Troponin T NT-Pro-B Natriuret Pep Total Protein Albumin Triglycerides LDL Cholesterol Direct HDL Cholesterol PTH Intact Urine Creatinine Urine Total Protein 07/06/22 07/06/22 07/07/22 20:59 23:30 03:02 WBC RBC Hgb Hct Plt Count Lymph % (Auto) Clinch % (Auto) Lymph # (Auto) Clinch # (Auto) Seg Neutrophils % Seg Neuts % (Manual) Lymphocytes % (Manual) Seg Neutrophils # Seg Neutrophils # Man Lymphocytes # (Manual) PT INR APTT Heparin Anti-Xa Level ABG pH ABG pO2 ABG HCO3 ABG O2 Saturation ABG Base Excess ABG Hemoglobin Oxyhemoglobin Sodium Potassium Chloride Carbon Dioxide BUN Creatinine Glucose POC Glucose 152 H 126 H 135 H Hemoglobin A1c Calcium Phosphorus Magnesium AST Troponin T NT-Pro-B Natriuret Pep Total Protein Albumin Triglycerides LDL Cholesterol Direct HDL Cholesterol PTH Intact Urine Creatinine Urine Total Protein 07/07/22 07/07/22 07/07/22 04:13 05:35 05:35 WBC RBC 3.13 L Hgb 9.7 L Hct 28.7 L Plt Count Lymph % (Auto) Clinch % (Auto) Lymph # (Auto) Clinch # (Auto) Seg Neutrophils % Seg Neuts % (Manual) Lymphocytes % (Manual) Seg Neutrophils # Seg Neutrophils # Man Lymphocytes # (Manual) PT INR APTT Heparin Anti-Xa Level ABG pH 7.473 H ABG pO2 93.4 H ABG HCO3 29.9 H ABG O2 Saturation ABG Base Excess 5.8 H ABG Hemoglobin 10.0 L Oxyhemoglobin Sodium Potassium Chloride Carbon Dioxide 31 H BUN 21 H Creatinine Glucose POC Glucose Hemoglobin A1c Calcium Phosphorus Magnesium AST Troponin T NT-Pro-B Natriuret Pep Total Protein Albumin Triglycerides LDL Cholesterol Direct HDL Cholesterol PTH Intact Urine Creatinine Urine Total Protein 07/07/22 07/07/22 07/07/22 06:15 12:25 18:36 WBC RBC Hgb Hct Plt Count Lymph % (Auto) Clinch % (Auto) Lymph # (Auto) Clinch # (Auto) Seg Neutrophils % Seg Neuts % (Manual) Lymphocytes % (Manual) Seg Neutrophils # Seg Neutrophils # Man Lymphocytes # (Manual) PT INR APTT Heparin Anti-Xa Level ABG pH ABG pO2 ABG HCO3 ABG O2 Saturation ABG Base Excess ABG Hemoglobin Oxyhemoglobin Sodium Potassium Chloride Carbon Dioxide BUN Creatinine Glucose POC Glucose 67 L 111 H 167 H Hemoglobin A1c Calcium Phosphorus Magnesium AST Troponin T NT-Pro-B Natriuret Pep Total Protein Albumin Triglycerides LDL Cholesterol Direct HDL Cholesterol PTH Intact Urine Creatinine Urine Total Protein 07/07/22 07/08/22 07/08/22 23:38 04:00 04:15 WBC RBC Hgb Hct Plt Count Lymph % (Auto) Clinch % (Auto) Lymph # (Auto) Clinch # (Auto) Seg Neutrophils % Seg Neuts % (Manual) Lymphocytes % (Manual) Seg Neutrophils # Seg Neutrophils # Man Lymphocytes # (Manual) PT INR APTT Heparin Anti-Xa Level ABG pH ABG pO2 63.4 L ABG HCO3 29.2 H ABG O2 Saturation 94.0 L ABG Base Excess 4.2 H ABG Hemoglobin 10.0 L Oxyhemoglobin 91.8 L Sodium Potassium Chloride Carbon Dioxide BUN 26 H Creatinine Glucose 276 H POC Glucose 243 H Hemoglobin A1c Calcium Phosphorus Magnesium AST Troponin T NT-Pro-B Natriuret Pep Total Protein Albumin Triglycerides LDL Cholesterol Direct HDL Cholesterol PTH Intact Urine Creatinine Urine Total Protein 07/08/22 07/08/22 07/08/22 05:00 05:07 11:33 WBC RBC 3.30 L Hgb 9.9 L Hct Plt Count Lymph % (Auto) Clinch % (Auto) Lymph # (Auto) Clinch # (Auto) Seg Neutrophils % Seg Neuts % (Manual) Lymphocytes % (Manual) Seg Neutrophils # Seg Neutrophils # Man Lymphocytes # (Manual) PT INR APTT Heparin Anti-Xa Level ABG pH ABG pO2 ABG HCO3 ABG O2 Saturation ABG Base Excess ABG Hemoglobin Oxyhemoglobin Sodium Potassium Chloride Carbon Dioxide BUN Creatinine Glucose POC Glucose 282 H 315 H Hemoglobin A1c Calcium Phosphorus Magnesium AST Troponin T NT-Pro-B Natriuret Pep Total Protein Albumin Triglycerides LDL Cholesterol Direct HDL Cholesterol PTH Intact Urine Creatinine Urine Total Protein 07/08/22 07/08/22 07/08/22 15:56 22:12 23:33 WBC RBC Hgb Hct Plt Count Lymph % (Auto) Clinch % (Auto) Lymph # (Auto) Clinch # (Auto) Seg Neutrophils % Seg Neuts % (Manual) Lymphocytes % (Manual) Seg Neutrophils # Seg Neutrophils # Man Lymphocytes # (Manual) PT INR APTT Heparin Anti-Xa Level ABG pH ABG pO2 ABG HCO3 ABG O2 Saturation ABG Base Excess ABG Hemoglobin Oxyhemoglobin Sodium Potassium Chloride Carbon Dioxide BUN Creatinine Glucose POC Glucose 378 H 389 H 390 H Hemoglobin A1c Calcium Phosphorus Magnesium AST Troponin T NT-Pro-B Natriuret Pep Total Protein Albumin Triglycerides LDL Cholesterol Direct HDL Cholesterol PTH Intact Urine Creatinine Urine Total Protein 07/09/22 07/09/22 07/09/22 04:00 04:00 05:18 WBC RBC 3.30 L Hgb 9.9 L Hct Plt Count Lymph % (Auto) Clinch % (Auto) Lymph # (Auto) Clinch # (Auto) Seg Neutrophils % Seg Neuts % (Manual) Lymphocytes % (Manual) Seg Neutrophils # Seg Neutrophils # Man Lymphocytes # (Manual) PT INR APTT Heparin Anti-Xa Level ABG pH ABG pO2 ABG HCO3 ABG O2 Saturation ABG Base Excess ABG Hemoglobin Oxyhemoglobin Sodium 146 H Potassium Chloride Carbon Dioxide BUN 36 H Creatinine Glucose 365 H POC Glucose 389 H Hemoglobin A1c Calcium Phosphorus Magnesium AST Troponin T NT-Pro-B Natriuret Pep Total Protein Albumin Triglycerides LDL Cholesterol Direct HDL Cholesterol PTH Intact Urine Creatinine Urine Total Protein 07/09/22 07/09/22 07/09/22 11:04 11:35 16:14 WBC RBC Hgb Hct Plt Count Lymph % (Auto) Clinch % (Auto) Lymph # (Auto) Clinch # (Auto) Seg Neutrophils % Seg Neuts % (Manual) Lymphocytes % (Manual) Seg Neutrophils # Seg Neutrophils # Man Lymphocytes # (Manual) PT INR APTT Heparin Anti-Xa Level ABG pH ABG pO2 74.0 L ABG HCO3 31.4 H ABG O2 Saturation ABG Base Excess 4.6 H ABG Hemoglobin 11.1 L Oxyhemoglobin 93.1 L Sodium Potassium Chloride Carbon Dioxide BUN Creatinine Glucose POC Glucose 328 H 273 H Hemoglobin A1c Calcium Phosphorus Magnesium AST Troponin T NT-Pro-B Natriuret Pep Total Protein Albumin Triglycerides LDL Cholesterol Direct HDL Cholesterol PTH Intact Urine Creatinine Urine Total Protein 07/09/22 07/10/22 07/10/22 21:54 02:02 03:18 WBC RBC Hgb Hct Plt Count Lymph % (Auto) Clinch % (Auto) Lymph # (Auto) Clinch # (Auto) Seg Neutrophils % Seg Neuts % (Manual) Lymphocytes % (Manual) Seg Neutrophils # Seg Neutrophils # Man Lymphocytes # (Manual) PT INR APTT Heparin Anti-Xa Level ABG pH ABG pO2 ABG HCO3 ABG O2 Saturation ABG Base Excess ABG Hemoglobin Oxyhemoglobin Sodium Potassium Chloride Carbon Dioxide BUN Creatinine Glucose POC Glucose 271 H 261 H 268 H Hemoglobin A1c Calcium Phosphorus Magnesium AST Troponin T NT-Pro-B Natriuret Pep Total Protein Albumin Triglycerides LDL Cholesterol Direct HDL Cholesterol PTH Intact Urine Creatinine Urine Total Protein 07/10/22 07/10/22 07/10/22 04:21 04:21 05:46 WBC RBC 3.55 L Hgb Hct Plt Count Lymph % (Auto) Clinch % (Auto) Lymph # (Auto) Clinch # (Auto) Seg Neutrophils % Seg Neuts % (Manual) Lymphocytes % (Manual) Seg Neutrophils # Seg Neutrophils # Man Lymphocytes # (Manual) PT INR APTT Heparin Anti-Xa Level ABG pH ABG pO2 ABG HCO3 ABG O2 Saturation ABG Base Excess ABG Hemoglobin Oxyhemoglobin Sodium 148 H Potassium Chloride Carbon Dioxide 32 H BUN 31 H Creatinine Glucose 253 H POC Glucose 222 H Hemoglobin A1c Calcium Phosphorus Magnesium AST Troponin T NT-Pro-B Natriuret Pep Total Protein 6.0 L Albumin 2.9 L Triglycerides LDL Cholesterol Direct HDL Cholesterol PTH Intact Urine Creatinine Urine Total Protein 07/10/22 07/10/22 07/10/22 09:55 13:55 16:08 WBC RBC Hgb Hct Plt Count Lymph % (Auto) Clinch % (Auto) Lymph # (Auto) Clinch # (Auto) Seg Neutrophils % Seg Neuts % (Manual) Lymphocytes % (Manual) Seg Neutrophils # Seg Neutrophils # Man Lymphocytes # (Manual) PT INR APTT Heparin Anti-Xa Level ABG pH ABG pO2 ABG HCO3 ABG O2 Saturation ABG Base Excess ABG Hemoglobin Oxyhemoglobin Sodium Potassium Chloride Carbon Dioxide BUN Creatinine Glucose POC Glucose 181 H 186 H 185 H Hemoglobin A1c Calcium Phosphorus Magnesium AST Troponin T NT-Pro-B Natriuret Pep Total Protein Albumin Triglycerides LDL Cholesterol Direct HDL Cholesterol PTH Intact Urine Creatinine Urine Total Protein 07/10/22 07/10/22 07/11/22 17:31 20:12 02:20 WBC RBC Hgb Hct Plt Count Lymph % (Auto) Clinch % (Auto) Lymph # (Auto) Clinch # (Auto) Seg Neutrophils % Seg Neuts % (Manual) Lymphocytes % (Manual) Seg Neutrophils # Seg Neutrophils # Man Lymphocytes # (Manual) PT INR APTT Heparin Anti-Xa Level ABG pH ABG pO2 ABG HCO3 ABG O2 Saturation ABG Base Excess ABG Hemoglobin Oxyhemoglobin Sodium Potassium Chloride Carbon Dioxide BUN Creatinine Glucose POC Glucose 190 H 211 H 238 H Hemoglobin A1c Calcium Phosphorus Magnesium AST Troponin T NT-Pro-B Natriuret Pep Total Protein Albumin Triglycerides LDL Cholesterol Direct HDL Cholesterol PTH Intact Urine Creatinine Urine Total Protein 07/11/22 07/11/22 04:00 05:14 WBC RBC Hgb Hct Plt Count Lymph % (Auto) Clinch % (Auto) Lymph # (Auto) Clinch # (Auto) Seg Neutrophils % Seg Neuts % (Manual) Lymphocytes % (Manual) Seg Neutrophils # Seg Neutrophils # Man Lymphocytes # (Manual) PT INR APTT Heparin Anti-Xa Level ABG pH ABG pO2 ABG HCO3 ABG O2 Saturation ABG Base Excess ABG Hemoglobin Oxyhemoglobin Sodium 146 H Potassium Chloride Carbon Dioxide 34 H BUN 26 H Creatinine Glucose 222 H POC Glucose 234 H Hemoglobin A1c Calcium Phosphorus Magnesium AST Troponin T NT-Pro-B Natriuret Pep Total Protein Albumin Triglycerides LDL Cholesterol Direct HDL Cholesterol PTH Intact Urine Creatinine Urine Total Protein Chest x-ray: image reviewed Allied health notes reviewed: RT
--- NOTE | 2022-07-11 09:38 | XRay Report ---
CHEST 1 VIEW 07/11/2022 7:41 AM INDICATION / CLINICAL INFORMATION: Follow up respiratory failure. COMPARISON: Yesterday. FINDINGS: SUPPORT DEVICES: The positions of the right PICC and feeding tube have not changed. HEART / MEDIASTINUM: Unchanged. LUNGS / PLEURA: Pleuroparenchymal opacity in the left mid to lower hemithorax is again identified and has shown mild improvement. The right lung is clear. No pneumothorax. ADDITIONAL FINDINGS: No significant additional findings. IMPRESSION: Improving pleuroparenchymal disease in the left mid to lower hemithorax. Signer Name: Josh Argueta MD Signed: 07/11/2022 9:34 AM Workstation Name: [id number]
[2022-07-11] MEDS: NICOTINE 21 MG/24 HR PATCH TD SCH (09:46)
[2022-07-11] MEDS: SENNOSIDES/DOCUSATE SODIUM 8.6/50 MG TAB FEEDTUBE SCH ×2 (09:47→22:21)
[2022-07-11] MEDS: LEVOTHYROXINE 112 MCG TAB FEEDTUBE SCH (09:47)
[2022-07-11] MEDS: APIXABAN 5 MG TAB FEEDTUBE SCH ×2 (09:47→22:18)
[2022-07-11] MEDS: LANSOPRAZOLE 30 MG SOLUTAB FEEDTUBE SCH (09:47)
--- NOTE | 2022-07-11 11:21 | Progress Note ---
Assessment and Plan Assessment and plan: This is a 52-year-old female with known past medical history of type 2 diabetes mellitus, hypertension, Nicotine dependence, COPD, PE/DVT was on Eliquis at home, medical noncompliance, and bipolar disorder intially admitted for DKA, STEFFANIE, and extensive BLE DVT s/p DKA protocol and bilateral caval iliofemoral thrombectomy. Patient was transferred back to the ICU on 07/05 s/p Cardiac Arrest with ROSC. Hospital Course to Date: 06/28: Mentation improved, denied any abdominal pain, no nausea/vomiting. BG and anio gap still elevated. Continue insulin gtt and IVF resuscitation per protocol. Monitor and replace electrolytes as needed, serial Labs ordered. Transition to subQ once gap is closed. BLE ischemia noted, extremities are purple and cool to touch, palpable pedal pulses appreciated. Patient reported that she has a history of PE/DVT on Eliquis but she admitted that she has not been complaints with any of her medications for 3 days. 06/29: Anion Gap still greater than 20, and CO2 15 this am. 1amp of bcarb given, continue Insulin gtt and IVF resuscitation per protocol. repeat BMP ordered, will transition to subQ once gap is closed. BLE doppler noted with extensive BLE DVT, patient remains on the heparin gtt. Patient reported she was on PO Eliquis at home and had a IVF filter placed. Vascular Surgery is also following, appreciate recommendations. Hyponatremia improving, appreciate Nephrology's recs. 06/30: Remains stable. Still on the DKA protocol, BG level has been less than 200s for over 24hrs, anion gap still in the 20s this am, probably due to STEFFANIE. Will transition patient to Subq insulin. Patient remains on the heparin gtt. BLE is unchanged, CHRISTOPHER pascual applied. Per vascular Surgery, possible interventions/thrombectomy once the patient is stabilized. 07/01: Transition to subQ insulin yesteday. Patient remains stable, tolerating PO intake. Insulin regimen adjusted for hyperglycemia, continue BG check ACHS and IVF hydration for now. Hyponatremia is improving, nephrology is following. Patient remains on heparin gtt per protocol for BLE ischemia. Possible interventions/thrombectomy tomorrow per Vascular Surgery. 07/02: Patient seen and examined at the bedside. Remains stable on RA, VSS. Yesterday was transitioned to SubQ insulin, tolerating PO intake. BLE ischemia is unchanged with palpable pedal pulses. CHRISTOPHER Hose applied per Vascular Surgery. Discussed with vascular surgery today they are going to proceed with bilateral thrombectomy. We will continue on heparin drip at this time. Education provided to the patient on blood sugar control. Compliance discussion also had for 15 minutes counseling. Anticipate discharge in 24 to 48 hours postprocedure 07/03: Patient underwent thrombectomy of bilateral caval iliofemoral DVTs by vascular surgery on 07/02/2022. Patient tolerated the procedure well 07/04: No acute events overnight. 07/05: Cardiac arrest. Transferred to ICU. PICC line placed. Levophed, vasopressin, phenylephrine, intubated on ventilatory support. A-line placed 07/06: This morning patient was placed on CPAP trial which he failed, patient was started and titrated off. No changes to mental status. Echocardiogram read which showed no right heart strain. BUN/creatinine are increasing but we will continue to monitor. Given 1 dose of vancomycin and cefepime given leukocytosis and febrile illness. Bicarbonate drip discontinued. 07/07: Patient was placed on CPAP trial which he failed due to tachypnea. Decreased her insulin regimen due to hypoglycemia. 07/08: No acute events reported overnight, remains on propofol. RT to trial CPAP. Small PE noted on CTA chest which vascular surgery stated would not require intervention and would typically have minimal to no symptoms. 07/09: KARINA overnight. Awake and appropriate, following commands. Tolerating PSV trial, plan for possible extubation per CCM. Hyperglycemic this am, SSI and Lantus adjusted. Repeat BLE doppler noted, no evidence of DVT, however positive acute superficial thrombosus in BLE. No intervention warranted at this time per Vascular Surgery, continue PO Eliquis. 07/10: S/p extubation, increased O2 supplemenation this am with tachypnea and increased WOB. BUL crackles auscultated, CXR is with increased opacitie Lt greater than Rt. 40mg on IV lasix administered, patient placed on Bipap. Keep patient NPO, insert DHT for meds and enteral nutrition. FWF added for hypernatremia. 07/09: Tolerating HHFL at 60% & 25L this am. Responded well to IV lasix, this am CXR with showed some improvement. Additional IV lasix today, will continue to monitor for response. Continue Bipap at night and wean O2 supplementation as tolerated. Encourage IS and mobility with PT. Qhs Lantus adjusted for persistent hyperglycemia. Continue FWF for hypernatremia. Advance TF as tolerated. Neuro: h/o medical noncompliance, bipolar disorder -Psych consulted, appreciate recommendations -Reorientation as needed -Maintain sleep-wake cycle -As needed analgesia -Per psych: Haldol, Depakote -Bilateral wrist restraints for safety Cardiac: s/p cardiac arrest on 07/05, h/o hypertension, HLD -Cardiology consulted, appreciate recommendations -Blood pressure monitoring per protocol -S/p vasopressor support with Levophed, pheynlepinephrine, vasopressin -MAP goal greater than 65 -Hold home hypertensive regimen of lisinopril and nifedipine -Continue home fenofibrate -Home medications: Lisinopril/hydrochlorothiazide 25/12.5 p.o. daily, fenofibrate 1 consistently grams daily -Echocardiogram shows LVEF 60 to 65%, RVSP 20 mmHg, no RV strain Respiratory: Acute hypoxic respiratory failure -CCM consulted, appreciate recommendations -Intubated on 06/04. s/p extubation on 07/09 -On HHFL at 60% and 25L, s/p X2 dose of IV lasix -Repeat CXR with some improvement this am -Additional IV lasix later on today -Continue Bipap at night and wean O2 supplementation as tolerated. -Encourage IS and mobility with PT -Continue SPO2 monitoring for SPO2 goal above 92% GI: Morbid obese, moderate protein calorie malnutrition,Dysphagia -Patient failed bedside swallow -Keep NPO, insert DHT -Resume enteral nutrition -NTR consulted for tube feedings -Speech on consult : Acute kidney injury likely secondary to vasomotor nephropathy (resolved), Hypernatremia -Nephrology consulted, appreciate recommendations -Continue FWF -Monitor intake and output -Renally dose medications -Avoid nephrotoxic medications -Trend BMP ID: Bilateral calf ulcers -General surgery consulted, appreciate recommendations -WOCN -Wound care per nursing -Antibiotic therapy with cefepime/vancomycin x1 -f/u blood culture -Monitor WBC and temperature curve Endo: Diabetes Mellitus with hyperglycemia s/p DKA, hypothyroidism -06/28 hemoglobin A1c 9.7 -SSI and lantus adjusted -Continue home Synthroid -Avoid hypoglycemia -Home regimen: Jardiance 5 mg daily, glimepiride 4 mg twice daily, Latuda 40 mg nightly, Ozempic 1 unit SQ per week Heme: Acute PE, Acute DVT h/o chronic right lower extremity DVT on Eliquis s/p IVC filter -Bilateral lower extremity Doppler ultrasound revealed bilateral lower extremity occlusive DVT with extension to IVC filter -07/07 CTA chest showed few small subsegmental right lower lobe and single distal small segmental right lower lobe pulmonary embolism, consolidation of the left lower lobe -Bilateral lower extremity ultrasound pending -Per vascular surgery minimal thrombus burden, unlikely to represent a cause of acute respiratory arrest, this would typically have minimal to no symptoms, no evidence of significant pulmonary emboli which would require intervention -S/p thrombectomy on 07/02 -s/p Heparin drip, now on Eliquis p.o. -Trend CBC -Transfuse hemoglobin less than 7 -SCDs to BLE while in bed The high probability of a clinically significant, sudden or life threatening deterioration of the [multiple] system(s) required my full and direct attention, intervention and personal management. The aggregate critical care time was [60] minutes. This time is in addition to time spent performing reported procedures but includes the following: [x] Data Review and interpretation [x] Patient assessment and monitoring of vital signs [x] Documentation [x] Medication orders and management Disposition Plan: ICU Total Time Spent with Patient (Minutes): 60 History Interval history: Patient seen and examined at the bedside. On HHFL at 60% and 25L, SPO2 above 95%. No signs of respiratory distress noted. Patient tolerated Bipap overnight, received additional 40mg IV lasix this am, VSS. Hospitalist Physical - Constitutional Vitals: Temp Pulse Resp BP Pulse Ox 99.4 F 82 32 H 134/61 93 07/11/22 06:00 07/11/22 09:01 07/11/22 09:01 07/11/22 09:01 07/11/22 11:10 General appearance: Present: no acute distress, well-nourished, obese - EENT Eyes: Present: PERRL, EOM intact ENT: hearing intact, other (Dry oral mucosa) - Neck Neck: Present: normal ROM - Respiratory Respiratory effort: normal Respiratory: bilateral: rhonchi, wheezing - Cardiovascular Rhythm: regular Heart Sounds: Present: S1 & S2 - Extremities Extremities: no ischemia, pulses intact, pulses symmetrical, abnormal (BLE dressings, Christopher hose stockings present) Extremity abnormal: edema - Peripheral Assessment Generalized Edema Type: Non-pitting Edema Degree: 3+ Capillary Refill: < 3 seconds Skin Temperature: Warm Peripheral Pulses: within normal limits - Abdominal General gastrointestinal: soft, non-distended, normal bowel sounds - Integumentary Integumentary: Present: warm, dry - Psychiatric Psychiatric: appropriate mood/affect, cooperative - Neurologic Neurologic: moves all extremities - Allied Health Allied health notes reviewed: nursing, case management HEART Score - HEART Score Troponin: Troponin T 0.080 ng/mL (0.00-0.029) H 06/27/22 20:48 Results - Labs CBC & Chem 7: 07/10/22 04:21 07/11/22 04:00 Labs: Laboratory Last Values WBC 8.3 K/mm3 (4.5-11.0) 07/10/22 04:21 RBC 3.55 M/mm3 (3.65-5.03) L 07/10/22 04:21 Hgb 10.6 gm/dl (10.1-14.3) 07/10/22 04:21 Hct 33.3 % (30.3-42.9) 07/10/22 04:21 MCV 94 fl (79-97) 07/10/22 04:21 MCH 30 pg (28-32) 07/10/22 04:21 MCHC 32 % (30-34) 07/10/22 04:21 RDW 14.9 % (13.2-15.2) 07/10/22 04:21 Plt Count 191 K/mm3 (140-440) 07/10/22 04:21 Lymph % (Auto) 8.4 % (13.4-35.0) L 07/04/22 05:37 [place] % (Auto) 10.1 % (0.0-7.3) H 07/04/22 05:37 Eos % (Auto) 0.4 % (0.0-4.3) 07/04/22 05:37 Baso % (Auto) 0.5 % (0.0-1.8) 07/04/22 05:37 Lymph # (Auto) 0.8 K/mm3 (1.2-5.4) L 07/04/22 05:37 Fallon # (Auto) 1.0 K/mm3 (0.0-0.8) H 07/04/22 05:37 Eos # (Auto) 0.0 K/mm3 (0.0-0.4) 07/04/22 05:37 Baso # (Auto) 0.0 K/mm3 (0.0-0.1) 07/04/22 05:37 Add Manual Diff Complete 07/05/22 Unknown Total Counted 100 07/05/22 Unknown Seg Neutrophils % 80.6 % (40.0-70.0) H 07/04/22 05:37 Seg Neuts % (Manual) 91.0 % (40.0-70.0) H 07/05/22 Unknown Band Neutrophils % 0 % 07/05/22 Unknown Lymphocytes % (Manual) 1.0 % (13.4-35.0) L 07/05/22 Unknown Reactive Lymphs % (Man) 0 % 07/05/22 Unknown Monocytes % (Manual) 4.0 % (0.0-7.3) 07/05/22 Unknown Eosinophils % (Manual) 0 % (0.0-4.3) 07/05/22 Unknown Basophils % (Manual) 0 % (0.0-1.8) 07/05/22 Unknown Metamyelocytes % 3.0 % 07/05/22 Unknown Myelocytes % 1.0 % 07/05/22 Unknown Promyelocytes % 0 % 07/05/22 Unknown Blast Cells % 0 % 07/05/22 Unknown Nucleated RBC % Not Reportable 07/05/22 Unknown Seg Neutrophils # 8.0 K/mm3 (1.8-7.7) H 07/04/22 05:37 Seg Neutrophils # Man 15.0 K/mm3 (1.8-7.7) H 07/05/22 Unknown Band Neutrophils # 0.0 K/mm3 07/05/22 Unknown Lymphocytes # (Manual) 0.2 K/mm3 (1.2-5.4) L 07/05/22 Unknown Abs React Lymphs (Man) 0.0 K/mm3 07/05/22 Unknown Monocytes # (Manual) 0.7 K/mm3 (0.0-0.8) 07/05/22 Unknown Eosinophils # (Manual) 0.0 K/mm3 (0.0-0.4) 07/05/22 Unknown Basophils # (Manual) 0.0 K/mm3 (0.0-0.1) 07/05/22 Unknown Metamyelocytes # 0.5 K/mm3 07/05/22 Unknown Myelocytes # 0.2 K/mm3 07/05/22 Unknown Promyelocytes # 0.0 K/mm3 07/05/22 Unknown Blast Cells # 0.0 K/mm3 07/05/22 Unknown WBC Morphology Not Reportable 07/05/22 Unknown WBC Morphology TNR 07/05/22 Unknown Hypersegmented Neuts Not Reportable 07/05/22 Unknown Hyposegmented Neuts Not Reportable 07/05/22 Unknown Hypogranular Neuts Not Reportable 07/05/22 Unknown Smudge Cells Not Reportable 07/05/22 Unknown Toxic Granulation Not Reportable 07/05/22 Unknown Toxic Vacuolation Not Reportable 07/05/22 Unknown Dohle Bodies Not Reportable 07/05/22 Unknown Pelger-Huet Anomaly Not Reportable 07/05/22 Unknown Jesús Rods Not Reportable 07/05/22 Unknown Platelet Estimate Consistent w auto 07/05/22 Unknown Clumped Platelets Few 07/05/22 Unknown Plt Clumps, EDTA Not Reportable 07/05/22 Unknown Large Platelets Not Reportable 07/05/22 Unknown Giant Platelets Not Reportable 07/05/22 Unknown Platelet Satelliting Not Reportable 07/05/22 Unknown Plt Morphology Comment Not Reportable 07/05/22 Unknown RBC Morphology Normal 07/05/22 Unknown Dimorphic RBCs Not Reportable 07/05/22 Unknown Polychromasia Not Reportable 07/05/22 Unknown Hypochromasia Not Reportable 07/05/22 Unknown Poikilocytosis Not Reportable 07/05/22 Unknown Anisocytosis Not Reportable 07/05/22 Unknown Microcytosis Not Reportable 07/05/22 Unknown Macrocytosis Not Reportable 07/05/22 Unknown Spherocytes Not Reportable 07/05/22 Unknown Pappenheimer Bodies Not Reportable 07/05/22 Unknown Sickle Cells Not Reportable 07/05/22 Unknown Target Cells Not Reportable 07/05/22 Unknown Tear Drop Cells Not Reportable 07/05/22 Unknown Ovalocytes Not Reportable 07/05/22 Unknown Helmet Cells Not Reportable 07/05/22 Unknown [place] Bodies Not Reportable 07/05/22 Unknown [place] Rings Not Reportable 07/05/22 Unknown Nelly Cells Not Reportable 07/05/22 Unknown Bite Cells Not Reportable 07/05/22 Unknown Crenated Cell Not Reportable 07/05/22 Unknown Elliptocytes Not Reportable 07/05/22 Unknown Acanthocytes (Spur) Not Reportable 07/05/22 Unknown Rouleaux Not Reportable 07/05/22 Unknown Hemoglobin C Crystals Not Reportable 07/05/22 Unknown Schistocytes Not Reportable 07/05/22 Unknown Malaria parasites Not Reportable 07/05/22 Unknown Ellis Bodies Not Reportable 07/05/22 Unknown Hem Pathologist Commnt No 07/05/22 Unknown PT 17.3 Sec. (12.2-14.9) H 07/02/22 20:28 INR 1.26 (0.87-1.13) H 07/02/22 20:28 APTT 24.1 Sec. (24.2-36.6) L 07/02/22 20:28 Heparin Anti-Xa Level 0.21 U.I./ml (0.3-0.7) L 07/02/22 08:12 ABG pH 7.352 pH Units (7.350-7.450) 07/09/22 11:35 ABG pCO2 57.9 mm Hg 07/09/22 11:35 ABG pO2 74.0 mm Hg (80.0-90.0) L 07/09/22 11:35 ABG HCO3 31.4 mmol/L (20.0-26.0) H 07/09/22 11:35 ABG O2 Saturation 95.2 % (95.0-99.0) 07/09/22 11:35 ABG O2 Content 14.6 (0.0-44) 07/09/22 11:35 ABG Base Excess 4.6 mmol/L (-2.0-3.0) H 07/09/22 11:35 ABG Hemoglobin 11.1 gm/dl (12.0-16.0) L 07/09/22 11:35 ABG Carboxyhemoglobin 1.8 % (0.0-5.0) 07/09/22 11:35 ABG Methemoglobin 0.4 % (0.0-1.5) 07/09/22 11:35 Oxyhemoglobin 93.1 % (95.0-99.0) L 07/09/22 11:35 FiO2 40 % 07/09/22 11:35 Sodium 146 mmol/L (137-145) H 07/11/22 04:00 Potassium 4.6 mmol/L (3.6-5.0) 07/11/22 04:00 Chloride 103.1 mmol/L (98-107) 07/11/22 04:00 Carbon Dioxide 34 mmol/L (22-30) H 07/11/22 04:00 Anion Gap 14 mmol/L 07/11/22 04:00 BUN 26 mg/dL (7-17) H 07/11/22 04:00 Creatinine 0.8 mg/dL (0.6-1.2) 07/11/22 04:00 Estimated GFR > 60 ml/min 07/11/22 04:00 BUN/Creatinine Ratio 33 % 07/11/22 04:00 Glucose 222 mg/dL (65-100) H 07/11/22 04:00 POC Glucose 234 mg/dL (70-105) H 07/11/22 05:14 Hemoglobin A1c 9.7 % (4-6) H 06/28/22 20:31 Lactic Acid 1.90 mmol/L (0.7-2.0) 06/29/22 10:47 Calcium 9.7 mg/dL (8.4-10.2) 07/11/22 04:00 Phosphorus 3.20 mg/dL (2.5-4.5) 07/10/22 04:21 Magnesium 2.30 mg/dL (1.7-2.3) 07/10/22 04:21 Total Bilirubin 0.60 mg/dL (0.1-1.2) 07/10/22 04:21 AST 18 units/L (5-40) 07/10/22 04:21 ALT 30 units/L (7-56) 07/10/22 04:21 Alkaline Phosphatase 84 units/L (35-129) 07/10/22 04:21 Troponin T 0.080 ng/mL (0.00-0.029) H 06/27/22 20:48 NT-Pro-B Natriuret Pep 4137 pg/mL (0-900) H 06/27/22 20:48 Total Protein 6.0 g/dL (6.3-8.2) L 07/10/22 04:21 Albumin 2.9 g/dL (3.9-5) L 07/10/22 04:21 Albumin/Globulin Ratio 0.9 % 07/10/22 04:21 Triglycerides 349 mg/dL (2-149) H 06/27/22 20:48 Cholesterol 156 mg/dL (50-199) 06/27/22 20:48 LDL Cholesterol Direct 37 mg/dL (50-130) L 06/27/22 20:48 HDL Cholesterol 38 mg/dL (40-59) L 06/27/22 20:48 Cholesterol/HDL Ratio 4.10 % 06/27/22 20:48 Procalcitonin 2.51 ng/mL (<0.15) 06/29/22 10:47 PTH Intact 382.4 pg/mL (15-65) H 06/29/22 04:21 Urine Creatinine 85.4 mg/dL (0.1-20.0) H 06/28/22 08:10 Protein/Creatinin Ratio 0.57 06/28/22 08:10 Urine Sodium 10 mmol/L 06/28/22 08:10 Urine Total Protein 49 mg/dL (5-11.8) H 06/28/22 08:10 Urine Opiates Screen Negative 07/11/22 05:00 Urine Methadone Screen Negative 07/11/22 05:00 Ur Barbiturates Screen Negative 07/11/22 05:00 Ur Phencyclidine Scrn Negative 07/11/22 05:00 Ur Amphetamines Screen Negative 07/11/22 05:00 U Benzodiazepines Scrn Negative 07/11/22 05:00 Urine Cocaine Screen Negative 07/11/22 05:00 U Marijuana (THC) Screen Negative 07/11/22 05:00 Drugs of Abuse Note Disclamer 07/11/22 05:00 Microbiology: Microbiology 07/05/22 15:15 Peripheral/Venous Blood Culture - Final NO GROWTH AFTER 5 DAYS 07/05/22 15:15 Peripheral/Venous Blood Culture - Final NO GROWTH AFTER 5 DAYS 07/07/22 14:29 Peripheral/Venous Blood Culture - Preliminary NO GROWTH AFTER 72 HOURS 07/07/22 14:29 Peripheral/Venous Blood Culture - Preliminary NO GROWTH AFTER 72 HOURS Tian/IV: Voiding Method External Female Catheter Active Medications - Current Medications Current Medications: Generic Name Dose Route Start Last Admin Trade Name Freq PRN Reason Stop Dose Admin Acetaminophen 650 mg 06/28/22 03:09 Acetaminophen 325 Mg Tab PO Q6H PRN Pain MILD(1-3)/Fever >100.5/MURILLO Albuterol 2.5 mg 07/10/22 19:44 Albuterol 2.5 Mg/3 Ml Nebu IH Q4HRT PRN Shortness Of Breath Albuterol/Ipratropium 1 ampul 07/10/22 21:00 07/11/22 07:20 Ipratropium/Albuterol Sulfate 3 Ml Ampul.Neb IH 1 ampul Q6HRT SHANTHI Administration Lipase/Protease/Amylase 1 each 07/05/22 11:00 Lipase 10,500/Protease 25,000/Amylase 43,750 (Units) Dr [place] FEEDTSEVERO PRN PRN For Clogged Feeding Tube Apixaban 5 mg 07/10/22 10:00 07/11/22 09:47 Apixaban 5 Mg Tab FEEDTUBE 5 mg Q12HR SHANTHI Administration Protocol Atorvastatin Calcium 40 mg 07/05/22 10:38 07/10/22 22:31 Atorvastatin 40 Mg Tab FEEDTUBE 40 mg QHS SHANTHI Administration Dextrose 50 ml 06/30/22 09:00 07/07/22 06:21 Dextrose 50% In Water (25gm) 50 Ml Syringe IV 50 ml Q30MIN PRN Administration Hypoglycemia Protocol Hydrophilic Ointment 1 applic 07/05/22 12:00 Lip Therapy Vaseline TP Q2H PRN Dry Lips Insulin Glargine 30 units 07/11/22 22:00 Insulin Glargine 100 Units/Ml SUB-Q QHS SHANTHI Insulin Human Lispro 0 unit 07/09/22 10:00 07/11/22 09:46 Insulin Lispro 100 Unit/Ml SUB-Q 4 unit Q4HR SHANTHI Administration Protocol Lansoprazole 30 mg 07/06/22 10:00 07/11/22 09:47 Lansoprazole 30 Mg Solutab FEEDTUBE 30 mg QDAY SHANTHI Administration Levothyroxine Sodium 112 mcg 07/05/22 12:00 07/11/22 09:47 Levothyroxine 112 Mcg Tab FEEDTUBE 112 mcg QAM SHANTHI Administration Mirtazapine 15 mg 07/07/22 22:00 07/10/22 22:31 Mirtazapine 15 Mg Solutab PO 15 mg QHS SHANTHI Administration Multi-Ingred Cream/Lotion/Oil/Oint 1 applic 07/05/22 11:00 Mineral Oil/Petrolatum, White Ophth Oint 3.5 Gm OU Q4H PRN Dry Eye(s) Nicotine 21 mg 07/04/22 15:00 07/11/22 09:46 Nicotine 21 Mg/24 Hr Patch TD 21 mg QDAY SHANTHI Administration Ondansetron HCl 4 mg 06/28/22 03:09 06/28/22 05:44 Ondansetron 4 Mg/2 Ml Inj IV 4 mg Q8H PRN Administration Nausea And Vomiting Senna/Docusate Sodium 1 tab 07/05/22 11:00 07/11/22 09:47 Sennosides/Docusate Sodium 8.6/50 Mg Tab FEEDTUBE 1 tab BID SHANTHI Administration Simple Syrup 15 ml 07/05/22 11:00 Simple Syrup 15 Ml FEEDTUBE PRN PRN Hypoglycemia Simple Syrup 30 ml 07/05/22 11:00 Simple Syrup 15 Ml FEEDTUBE PRN PRN Hypoglycemia Sodium Bicarbonate 325 mg 07/05/22 10:26 Sodium Bicarbonate 325 Mg Tab FEEDTUBE PRN PRN For Clogged Feeding Tube Sodium Chloride 10 ml 06/28/22 10:00 07/10/22 23:12 Sodium Chloride 0.9% 10 Ml Flush Syringe IV 10 ml BID SHANTHI Administration Sodium Chloride 10 ml 06/28/22 03:09 Sodium Chloride 0.9% 10 Ml Flush Syringe IV PRN PRN LINE FLUSH Valproic Acid 250 mg 07/08/22 18:00 07/11/22 05:20 Valproic Acid 250 Mg/5 Ml Oral Liqd FEEDTUBE 250 mg Q6HR SHANTHI Administration Nutrition/Malnutrition Assess - Dietary Evaluation Nutrition/Malnutrition Findings: Nutrition Notes Start: 06/28/22 11:39 Freq: Status: Active Protocol: Document 07/10/22 14:11 CHRISTAL (Rec: 07/10/22 15:42 CHRISTAL [id number]) Nutrition Notes Initial or Follow up Reassessment Current Diagnosis COPD,Diabetes,Hypertension Other Pertinent Diagnosis S/p PEA/ROSC, s/p STEFFANIE, s/p DKA , DVT s/p LE Angioplasty. Current Diet TF-Glucerna 1.2 Prabhjot @ 55 ml/hr (from D 07/10). Labs/Tests 07/10: Na 148, CO2 32, BUN 31, Glu 253. Pertinent Medications 07/10: Humalog 3U, Levothyroxine, others nutritionally unremarkable. Height 5 ft 4 in Weight 139.6 kg [place] Body Weight (kg) 54.54 BMI 52.8 Weight change and time frame No body weight change reported in 12 days. Weight Status Morbidly Obese Subjective/Other Information RD consult for write/manage TF assessment. Formula has to change, Pt extubated on 07/09. Pt on Nasal Cannula, O2 saturation @ 94%, according to Physical Assessment History notes. BULK DRIVER note on 07/10/22 11:37: Swallowing function has been assessed. Patient is at profound risk for PO. Recommend NPO and no water or icechips. Will continue to follow. Informed the patient's nurse. - END OF NOTE. Percent of energy/protein needs met: Prescribed TF-Glucerna 1.2 Prabhjot @ 55 ml/hr provides for energy/protein needs (1,570 Kcal/79 g) during LOS, 102% Kcal; 100% AA. Burn Absent Trauma Absent GI Symptoms None Difficulty In Swallowing Food Allergy No Skin Integrity/Comment Bilateral LE redness/echimosis . Current % PO Other Minimum of two criteria No Fluid Accumulation N/A Reduced It Systems Manager Strength N/A (non-severe) Protein-Calorie Malnutrition N\A #2 Nutrition Diagnosis Inadequate oral intake Comments: Pt extubated on 07/09, according to Progress notes. BULK DRIVER note on 07/10/22 11:37: Swallowing function has been assessed. Patient is at profound risk for PO. Recommend NPO and no water or icechips. Will continue to follow. Informed the patient's nurse. - END OF NOTE. Diagnosis Progress(for reassessment Continues documentation) #1 Nutrition Diagnosis Overweight/obesity Diagnosis Progress(for reassessment Continues documentation) Is patient on ventilator? No Is Patient Ambulatory and/or Out of Bed No REE-([facility]-confined to bed) 2392.512 Kcal/Kg value to use for calculation 11 Approximate Energy Requirements Using 1536 kcal/Kg Calculation Used for Recommendations Kcal/kg Additional Notes Protein: 0.8-1.2 g/Kg AdjBW; 77-115 g/day. Fluids: 1 ml/Kcal, or as per MD. Nutrition Intervention Nutrition Support: Change formula to TF-Glucerna 1.2 Prabhjot @ 55 ml/hr. Start with Trickle feed per MD . Flush: 80 ml water Q4 hr, or as per MD. Kcal 1,570 Protein (gm) 79 Carbohydrates (gm) 150 Fat (gm) 79 Fluid (mL) 1,053 Fiber (gm) 21 % RDI: 102% Kcal; 100% AA. Goal #1 Provide at least 75% of energy /protein needs through Enteral Feeding during LOS. Goal #2 Adjust the dietary intervention to better serve Pt's energy/protein needs and clinical conditions during LOS . Follow-Up By: 07/13/22 Additional Comments Continue monitoring TF tolerance, BULK DRIVER recommendations , TF rate adjustments, and BM.
--- NOTE | 2022-07-11 14:19 | Progress Note ---
Subjective - Reason for Consult Consult date: 07/11/22 Reason for consult: hx of bipolar - Chief Complaint Chief complaint: The patient was seen today, she is awake and alert. She's on 02 per NC. She says she's uncomfortable. The patient says she's having a lot of anxiety. She denies SI/HI or hallucinations of any kind. ROS On ventilator MENTAL STATUS EXAMINATION General Appearance and Behavior: cooperative Cooperation: cooperative Psychomotor Behavior: unable to assess Mood: Anxious Affect and affective range: congruent with stated mood Thought Process: goal directed Thought Content: within realty Speech: Normal tone and pace Suicidal Ideation: Denies Homicidal Ideation: Denies Hallucination: Denies Delusions: None elicited Impulse Control: Normal Insight and Judgment: Normal Memory: Limited Attention: attentive Orientation: a/o ASSESSMENT Bipolar disorder Generalized Anxiety Disorder TREATMENT Start Vistaril 25mg po q6h prn anxiety Changed to Valproic sodium IV q12h (national shortaged, changed back to po) Risks, benefits and alternatives of medications discussed with the patient, questions answered and consent obtained from patient. PSYCHOTHERAPY: Supportive psychotherapy provided MEDICAL: Per primary team DELIRIUM PRECAUTIONS: Please re-orient patient frequently, keep lights on during the day, and minimize benzodiazepines and opiates as these medications could worsen patient's confusion. ORTHODONTIC LAB TECHNICIAN: Defer to primary DISPOSITION: Do not recommend acute inpatient psychiatric hospitalization at this time. FOLLOW-UP: Will follow Thank you for the consult. Please contact with any questions and/or concerns. Case staffed with Dr. Andrews Mental Status Exam - Vital signs Last Vital Signs Temp 99.4 F 07/11/22 06:00 Pulse 85 07/11/22 13:00 Resp 22 07/11/22 13:00 BP 135/73 07/11/22 13:00 Pulse Ox 95 07/11/22 13:00
[2022-07-11] MEDS ORDERED: hydrOXYzine PAMOATE 25 MG CAP PO PRN (15:00)
--- NOTE | 2022-07-11 15:06 | Progress Note ---
Assessment and Plan - Patient Problems (1) Cardiopulmonary arrest Current Visit: Yes Status: Acute Plan to address problem: Patient was on hospital monitor at the time of her respiratory decompensation, no primary cardiac arrhythmias were noted. Possible etiologies has been pulmonary atelectasis, sleep apnea and pulmonary embolism. No likely cardiac etiology. Echocardiogram shows normal left ventricular chamber size and systolic function with ejection fraction 60 to 65%. Conversely, there is moderate dilatation of the right heart chambers, with normal pulmonary artery pressure. (2) Paroxysmal atrial fibrillation Current Visit: Yes Status: Acute Plan to address problem: Patient has paroxysmal atrial fibrillation, with underlying right bundle branch block, findings are chronic. 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 Continue current management. Subjective Date of service: 07/11/22 Principal diagnosis: AHRF; DKA; Hyperkalemia; COPD; ? cellulitis; PVD; STEFFANIE; Morbid obesity; ?JACKLYN Interval history: Patient is awake, comfortable denies any acute distress, currently on nasal oxygen. On hospital monitor, there is a stable sinus rhythm at 90. Chest x- ray shows persistent atelectasis of the left lower lobe with pleural effusion. Objective Vital Signs Temp Pulse Pulse Pulse Pulse Pulse Resp 07/11/22 14:00 89 29 H 07/11/22 13:00 98 H 85 14 07/11/22 12:01 83 15 07/11/22 12:00 82 83 15 07/11/22 11:10 07/11/22 11:01 86 28 H 07/11/22 10:00 82 16 07/11/22 09:01 82 32 H 07/11/22 08:00 82 82 80 80 16 07/11/22 07:20 80 07/11/22 07:00 77 14 07/11/22 06:00 99.4 F 84 24 07/11/22 05:00 83 13 07/11/22 04:30 87 24 07/11/22 04:05 07/11/22 04:00 99.4 F 94 H 35 H 07/11/22 03:45 97 H 37 H 07/11/22 03:39 38 H 07/11/22 03:22 38 H 07/11/22 03:00 93 H 97 H 39 H 07/11/22 02:55 07/11/22 02:00 89 34 H 07/11/22 01:34 76 09/28/22 01:01 76 30 H 07/11/22 00:00 99.6 F 90 24 07/10/22 23:21 28 H 07/10/22 23:07 87 29 H 07/10/22 23:00 88 31 H 07/10/22 22:30 26 H 07/10/22 22:00 86 84 31 H 07/10/22 21:00 85 32 H 07/10/22 20:25 84 35 H 07/10/22 20:00 98.8 F 84 34 H 07/10/22 19:30 84 86 26 H 07/10/22 19:00 85 34 H 07/10/22 18:01 87 34 H 07/10/22 17:00 84 36 H 07/10/22 16:23 98.2 F 07/10/22 16:00 68 68 26 H Resp Resp Resp BP Pulse Ox 07/11/22 14:00 126/65 94 07/11/22 13:00 22 135/73 95 07/11/22 12:01 116/65 97 07/11/22 12:00 97 07/11/22 11:10 93 07/11/22 11:01 139/56 94 07/11/22 10:00 127/63 96 07/11/22 09:01 134/61 97 07/11/22 08:00 143/62 100 07/11/22 07:20 22 98 07/11/22 07:00 110/65 99 07/11/22 06:00 132/60 96 07/11/22 05:00 128/70 97 07/11/22 04:30 124/74 100 07/11/22 04:05 35 H 35 H 07/11/22 04:00 171/93 99 07/11/22 03:45 35 H 35 H 174/94 97 07/11/22 03:39 94 07/11/22 03:22 94 07/11/22 03:00 35 H 181/82 95 07/11/22 02:55 95 07/11/22 02:00 154/68 88 07/11/22 01:34 35 H 35 H 07/11/22 01:01 130/66 99 07/11/22 00:00 159/76 98 07/10/22 23:21 94 07/10/22 23:07 156/75 100 07/10/22 23:00 156/75 100 07/10/22 22:30 94 07/10/22 22:00 30 H 160/73 99 07/10/22 21:00 152/67 96 07/10/22 20:25 151/67 97 07/10/22 20:00 151/67 92 07/10/22 19:30 35 H 35 H 94 07/10/22 19:00 148/72 93 07/10/22 18:01 165/76 89 07/10/22 17:00 159/73 87 07/10/22 16:23 07/10/22 16:00 143/72 95 - Physical Examination General: No Apparent Distress HEENT: Positive: PERRL Neck: Positive: neck supple Cardiac: Positive: Reg Rate and Rhythm Lungs: Positive: Decreased Breath Sounds Neuro: Positive: Weakness (Generalized lethargy) Abdomen: Positive: Soft Skin: Positive: Clear Extremities: Absent: edema - Labs and Meds Comprehensive Metabolic Panel 07/11/22 Range/Units 04:00 Sodium 146 H (137-145) mmol/L Potassium 4.6 (3.6-5.0) mmol/L Chloride 103.1 (98-107) mmol/L Carbon Dioxide 34 H (22-30) mmol/L BUN 26 H (7-17) mg/dL Creatinine 0.8 (0.6-1.2) mg/dL Glucose 222 H (65-100) mg/dL Calcium 9.7 (8.4-10.2) mg/dL - Allied health notes Allied health notes reviewed: RT
[2022-07-11] MEDS ORDERED: FUROSEMIDE 40 MG/4 ML INJ IV SCH (16:00)
[2022-07-11] MEDS ORDERED: INSULIN GLARGINE 100 UNITS/ML SUB-Q SCH (22:00)
[2022-07-11] MEDS: MIRTAZAPINE 15 MG SOLUTAB PO SCH (22:20)
[2022-07-12] MEDS: VALPROIC ACID 250 MG/5 ML ORAL LIQD FEEDTUBE SCH ×4 (00:44→17:46)
[2022-07-12] MEDS: IPRATROPIUM/ALBUTEROL SULFATE 3 ML AMPUL.NEB IH SCH ×4 (01:58→19:25)
[2022-07-12] MEDS: FREE WATER PO SCH ×2 (02:13→06:29)
[2022-07-12] MEDS: INSULIN LISPRO 100 UNIT/ML SUB-Q SCH ×8 (02:15→22:25)
[2022-07-12 04:47] LABS: Basophils # (Auto) 0.1 K/mm3 (0.0-0.1); Basophils % (Auto) 0.9 % (0.0-1.8); Eosinophils % (Auto) 0.6 % (0.0-4.3); Hematocrit 32.4 % (30.3-42.9); Hemoglobin 10.3 gm/dl (10.1-14.3); Lymphocytes # (Auto) 1.8 K/mm3 (1.2-5.4); Lymphocytes % (Auto) 22.2 % (13.4-35.0); Mean Corpuscular HGB Conc 32 % (30-34); Mean Corpuscular Volume 94 fl (79-97); Monocytes # (Auto) 0.6 K/mm3 (0.0-0.8); Monocytes % (Auto) 7.4 % (0.0-7.3); Platelet Count 198 K/mm3 (140-440); Red Blood Count 3.44 M/mm3 (3.65-5.03); Red Cell Distribution Width 14.5 % (13.2-15.2)
[2022-07-12 05:02] LABS: Alanine Aminotransferase 19 units/L (7-56); Albumin 2.6 g/dL (3.9-5); BUN/Creatinine Ratio 21; Blood Urea Nitrogen 19 mg/dL (7-17); Calcium 9.4 mg/dL (8.4-10.2); Hemolysis Index 0
[2022-07-12] MEDS ORDERED: DEXTROSE 50% IN WATER (25GM) 50 ML SYRINGE IV PRN (09:00)
[2022-07-12] MEDS: APIXABAN 5 MG TAB FEEDTUBE SCH ×2 (09:56→22:25)
[2022-07-12] MEDS: LEVOTHYROXINE 112 MCG TAB FEEDTUBE SCH (09:56)
[2022-07-12] MEDS: K-PHOS NEUTRAL 250 MG TAB PO SCH ×3 (09:56→17:46)
[2022-07-12] MEDS: NICOTINE 21 MG/24 HR PATCH TD SCH (09:56)
[2022-07-12] MEDS: LANSOPRAZOLE 30 MG SOLUTAB FEEDTUBE SCH (09:56)
[2022-07-12] MEDS: SENNOSIDES/DOCUSATE SODIUM 8.6/50 MG TAB FEEDTUBE SCH ×2 (09:57→22:26)
--- NOTE | 2022-07-12 10:36 | Progress Note ---
Assessment and Plan 1. Acute kidney injury: Suspect vasomotor STEFFANIE in the setting of DKA/volume depletion. Renal US negative for hydro/stone. Monitor renal function. Creatinine leveled off. Avoid nephrotoxic agents. Meds dosage based on GFR. 2. FEN: Metabolic alkalosis, compensatory, a dose of Diamox, monitor. Hypernatremia, monitor. Anion-gap Metabolic acidosis, 2/2 DKA, improved, monitor. Replete lytes as needed. Monitor lytes and volume status. 3. S/p Cardiac arrest 07/05: Currently in ICU. Followed by Cards. 4. Resp failure: S/p extubated. On HFNC O2. 5. A.fib with RVR: SR now. Followed by Cards. 6. DKA: Admits to stop taking meds at home. S/p Insulin drip. Improved. Monitor. 7. Acute DVT involving the external iliac veins bilaterally with thrombus extending distally bilaterally: S/p LE angioplsty Followed by Vascular. 8. Hyotension: Off pressors. Monitor BP. 9. H/o COPD. Subjective: Patient was seen and examined at the bedside. Examination: General appearance: well-developed, obese, appears stated age, on HFNC O2 HEENT: atraumatic, no icterus Neck: trachea midline Respiratory: diminished breath sounds heard Heart: S1S2, regular, no murmur Abdomen: soft, obese, bowel sounds heard, NT Integumentary: LE dressing noted Neurologic: somnolent, conversing Ext: trace Ext and dependent edema Subjective Date of service: 07/12/22 Principal diagnosis: AHRF; DKA; Hyperkalemia; COPD; ? cellulitis; PVD; STEFFANIE; Morbid obesity; ?JACKLYN Objective - Vital Signs Vital signs: Vital Signs - 12hr 07/11/22 07/12/22 07/12/22 23:00 00:00 01:00 Temperature Pulse Rate 75 72 70 Pulse Rate [ Anterior Throughout] Pulse Rate [ 68 From Monitor] Pulse Rate [ 68 Left Dorsalis Pedis] Pulse Rate [ 68 Right Dorsalis Pedis] Respiratory 32 H 26 H 22 Rate Respiratory Rate [Anterior Throughout] Blood Pressure 133/62 121/59 128/62 O2 Sat by Pulse 96 98 97 Oximetry 07/12/22 07/12/22 07/12/22 01:02 01:59 02:00 Temperature Pulse Rate 72 61 Pulse Rate [ 65 Anterior Throughout] Pulse Rate [ From Monitor] Pulse Rate [ Left Dorsalis Pedis] Pulse Rate [ Right Dorsalis Pedis] Respiratory 24 24 Rate Respiratory 24 Rate [Anterior Throughout] Blood Pressure 120/59 126/62 O2 Sat by Pulse 97 98 98 Oximetry 07/12/22 07/12/22 07/12/22 03:00 04:00 05:00 Temperature Pulse Rate 62 59 L 60 Pulse Rate [ Anterior Throughout] Pulse Rate [ 59 L From Monitor] Pulse Rate [ 59 L Left Dorsalis Pedis] Pulse Rate [ 59 L Right Dorsalis Pedis] Respiratory 15 16 17 Rate Respiratory Rate [Anterior Throughout] Blood Pressure 112/59 120/60 119/61 O2 Sat by Pulse 97 98 98 Oximetry 07/12/22 07/12/22 07/12/22 05:32 06:00 07:00 Temperature Pulse Rate 60 63 58 L Pulse Rate [ Anterior Throughout] Pulse Rate [ From Monitor] Pulse Rate [ Left Dorsalis Pedis] Pulse Rate [ Right Dorsalis Pedis] Respiratory 21 26 H 17 Rate Respiratory Rate [Anterior Throughout] Blood Pressure 118/57 130/61 123/60 O2 Sat by Pulse 99 98 97 Oximetry 07/12/22 07/12/22 07/12/22 07:58 08:00 08:01 Temperature Pulse Rate 62 67 Pulse Rate [ Anterior Throughout] Pulse Rate [ From Monitor] Pulse Rate [ Left Dorsalis Pedis] Pulse Rate [ Right Dorsalis Pedis] Respiratory 30 H 9 L Rate Respiratory Rate [Anterior Throughout] Blood Pressure 156/54 156/54 O2 Sat by Pulse 95 95 95 Oximetry 07/12/22 07/12/22 07/12/22 08:10 08:39 08:56 Temperature 97.6 F Pulse Rate 70 Pulse Rate [ 67 Anterior Throughout] Pulse Rate [ From Monitor] Pulse Rate [ Left Dorsalis Pedis] Pulse Rate [ Right Dorsalis Pedis] Respiratory Rate Respiratory 18 Rate [Anterior Throughout] Blood Pressure O2 Sat by Pulse Oximetry 07/12/22 07/12/22 07/12/22 08:58 09:00 10:00 Temperature Pulse Rate 73 68 Pulse Rate [ Anterior Throughout] Pulse Rate [ 67 From Monitor] Pulse Rate [ Left Dorsalis Pedis] Pulse Rate [ Right Dorsalis Pedis] Respiratory 15 28 H 25 H Rate Respiratory Rate [Anterior Throughout] Blood Pressure 142/46 136/65 O2 Sat by Pulse 95 97 96 Oximetry - Lab 07/12/22 04:18 07/12/22 04:18 Most recent lab results ABG pH 7.352 pH Units (7.350-7.450) 07/09/22 11:35 ABG pCO2 57.9 mm Hg 07/09/22 11:35 ABG pO2 74.0 mm Hg (80.0-90.0) L 07/09/22 11:35 ABG HCO3 31.4 mmol/L (20.0-26.0) H 07/09/22 11:35 ABG O2 Saturation 95.2 % (95.0-99.0) 07/09/22 11:35 Calcium 9.4 mg/dL (8.4-10.2) 07/12/22 04:18 Phosphorus 2.10 mg/dL (2.5-4.5) L 07/12/22 04:18 Magnesium 2.20 mg/dL (1.7-2.3) 07/12/22 04:18 Urine Creatinine 85.4 mg/dL (0.1-20.0) H 06/28/22 08:10 Urine Sodium 10 mmol/L 06/28/22 08:10 Urine Total Protein 49 mg/dL (5-11.8) H 06/28/22 08:10 Medications & Allergies - Medications Allergies/Adverse Reactions: Allergies ciprofloxacin [From Cipro] Allergy (Verified 05/28/22 12:07) Unknown Penicillins Allergy (Verified 05/28/22 12:07) Unknown Home Medications: Home Medications Medication Instructions Recorded Confirmed Last Taken Type Apixaban [Eliquis] 5 mg PO BID 04/13/21 06/28/22 Unknown History Empagliflozin [Jardiance] 25 mg DAILY 04/13/21 06/28/22 Unknown History Fenofibrate 160 mg PO DAILY 04/13/21 06/28/22 Unknown History Glimepiride 4 mg BID 04/13/21 06/28/22 Unknown History Insulin Aspart (Nf) [NovoLOG 100 unit SQ PRN PRN 04/13/21 06/28/22 Unknown History Flexpen] Levothyroxine [Synthroid] 112 mcg PO QAM 04/13/21 06/28/22 Unknown History Lisinopril/Hydrochlorothiazide 1 tab PO QDAY 04/13/21 06/28/22 Unknown History [Zestoretic 20-12.5 mg] [place] Carbonate 600 mg PO QHS 04/13/21 06/28/22 Unknown History [place] Carbonate [Eskalith] 150 mg PO QAM 04/13/21 06/28/22 Unknown History Lurasidone [Latuda] 40 mg QHS 04/13/21 06/28/22 Unknown History Oxybutynin Chloride [Ditropan Xl] 15 mg PO QDAY 04/13/21 06/28/22 Unknown History Semaglutide [Ozempic] 1 unit SQ 1XW 04/13/21 06/28/22 Unknown History Venlafaxine HCl [Venlafaxine HCl 150 mg DAILY 04/13/21 06/28/22 Unknown History ER] buPROPion SR [Wellbutrin SR] 100 mg PO DAILY 04/13/21 06/28/22 Unknown History Doxycycline Hyclate [Doxycycline 100 mg PO Q12HR 7 Days #14 04/14/21 06/28/22 Unknown Rx Hyclate TAB] Active Medications: Generic Name Dose Route Start Last Admin Trade Name Freq PRN Reason Stop Dose Admin Acetaminophen 650 mg 06/28/22 03:09 Acetaminophen 325 Mg Tab PO Q6H PRN Pain MILD(1-3)/Fever >100.5/MURILLO Albuterol 2.5 mg 07/10/22 19:44 Albuterol 2.5 Mg/3 Ml Nebu IH Q4HRT PRN Shortness Of Breath Albuterol/Ipratropium 1 ampul 07/10/22 21:00 07/12/22 08:07 Ipratropium/Albuterol Sulfate 3 Ml Ampul.Neb IH 1 ampul Q6HRT SHANTHI Administration Lipase/Protease/Amylase 1 each 07/05/22 11:00 Lipase 10,500/Protease 25,000/Amylase 43,750 (Units) Dr Jasmeet SARKAR PRN PRN For Clogged Feeding Tube Apixaban 5 mg 07/10/22 10:00 07/12/22 09:56 Apixaban 5 Mg Tab FEEDTUBE 5 mg Q12HR SHANTHI Administration Protocol Atorvastatin Calcium 40 mg 07/05/22 10:38 07/11/22 22:20 Atorvastatin 40 Mg Tab FEEDTUBE 40 mg QHS SHANTHI Administration Dextrose 50 ml 07/12/22 09:00 Dextrose 50% In Water (25gm) 50 Ml Syringe IV Q30MIN PRN Hypoglycemia Protocol Hydrophilic Ointment 1 applic 07/05/22 12:00 Lip Therapy Vaseline TP Q2H PRN Dry Lips Hydroxyzine Pamoate 25 mg 07/11/22 15:00 Hydroxyzine Pamoate 25 Mg Cap PO Q6H PRN Anxiety Insulin Glargine 35 units 07/12/22 22:00 Insulin Glargine 100 Units/Ml SUB-Q QHS SHANTHI Insulin Human Lispro 0 unit 07/09/22 10:00 07/12/22 09:56 Insulin Lispro 100 Unit/Ml SUB-Q 4 unit Q4HR SHANTHI Administration Protocol Insulin Human Lispro 5 unit 07/12/22 11:30 Insulin Lispro 100 Unit/Ml SUB-Q 07/13/22 11:29 AC SHANTHI Lansoprazole 30 mg 07/06/22 10:00 07/12/22 09:56 Lansoprazole 30 Mg Solutab FEEDTUBE 30 mg QDAY SHANTHI Administration Levothyroxine Sodium 112 mcg 07/05/22 12:00 07/12/22 09:56 Levothyroxine 112 Mcg Tab FEEDTUBE 112 mcg QAM SHANTHI Administration Mirtazapine 15 mg 07/07/22 22:00 07/11/22 22:20 Mirtazapine 15 Mg Solutab PO 15 mg QHS SHANTHI Administration Multi-Ingred Cream/Lotion/Oil/Oint 1 applic 07/05/22 11:00 Mineral Oil/Petrolatum, White Ophth Oint 3.5 Gm OU Q4H PRN Dry Eye(s) Nicotine 21 mg 07/04/22 15:00 07/12/22 09:56 Nicotine 21 Mg/24 Hr Patch TD 21 mg QDAY SHANTHI Administration Ondansetron HCl 4 mg 06/28/22 03:09 06/28/22 05:44 Ondansetron 4 Mg/2 Ml Inj IV 4 mg Q8H PRN Administration Nausea And Vomiting Senna/Docusate Sodium 1 tab 07/05/22 11:00 07/12/22 09:57 Sennosides/Docusate Sodium 8.6/50 Mg Tab FEEDTUBE 1 tab BID SHANTHI Administration Simple Syrup 15 ml 07/05/22 11:00 Simple Syrup 15 Ml FEEDTUBE PRN PRN Hypoglycemia Simple Syrup 30 ml 07/05/22 11:00 Simple Syrup 15 Ml FEEDTUBE PRN PRN Hypoglycemia Sodium Bicarbonate 325 mg 07/05/22 10:26 Sodium Bicarbonate 325 Mg Tab FEEDTUBE PRN PRN For Clogged Feeding Tube Sodium Chloride 10 ml 06/28/22 10:00 07/12/22 09:56 Sodium Chloride 0.9% 10 Ml Flush Syringe IV 10 ml BID SHANTHI Administration Sodium Chloride 10 ml 06/28/22 03:09 Sodium Chloride 0.9% 10 Ml Flush Syringe IV PRN PRN LINE FLUSH Sodium Phosphate 250 mg 07/12/22 10:00 07/12/22 09:56 K-Phos Neutral 250 Mg Tab PO 07/12/22 18:01 250 mg QID SHANTHI Administration Valproic Acid 250 mg 07/08/22 18:00 07/12/22 06:28 Valproic Acid 250 Mg/5 Ml Oral Liqd FEEDTUBE 250 mg Q6HR SHANTHI Administration
[2022-07-12] MEDS ORDERED: acetaZOLAMIDE 250 MG TAB PO NR (11:00)
[2022-07-12] MEDS ORDERED: FREE WATER PO SCH (11:00)
--- NOTE | 2022-07-12 11:37 | Progress Note ---
<WILDA MURRAY - Last Filed: 07/12/22 18:11> Assessment and Plan Assessment and plan: This is a 52-year-old female with known past medical history of type 2 diabetes mellitus, hypertension, Nicotine dependence, COPD, PE/DVT was on Eliquis at home, medical noncompliance, and bipolar disorder intially admitted for DKA, AK I, and extensive BLE DVT s/p DKA protocol and bilateral caval iliofemoral thrombectomy. Patient was transferred back to the ICU on 07/05 s/p Cardiac Arrest with ROSC. Hospital Course to Date: 06/28: Mentation improved, denied any abdominal pain, no nausea/vomiting. BG and anio gap still elevated. Continue insulin gtt and IVF resuscitation per protocol. Monitor and replace electrolytes as needed, serial Labs ordered. Transition to subQ once gap is closed. BLE ischemia noted, extremities are purple and cool to touch, palpable pedal pulses appreciated. Patient reported t hat she has a history of PE/DVT on Eliquis but she admitted that she has not been complaints with any of her medications for 3 days. 06/29: Anion Gap still greater than 20, and CO2 15 this am. 1amp of bcarb given, continue Insulin gtt and IVF resuscitation per protocol. repeat BMP ordered, will transition to subQ once gap is closed. BLE doppler noted with extensive BLE DVT, patient remains on the heparin gtt. Patient reported she was on PO Eliquis at home and had a IVF filter placed. Vascular Surgery is also following, appreciate recommendations. Hyponatremia improving, appreciate Nephrology's recs. 06/30: Remains stable. Still on the DKA protocol, BG level has been less than 200s for over 24hrs, anion gap still in the 20s this am, probably due to STEFFANIE. Will transition patient to Subq insulin. Patient remains on the heparin gtt. BLE is unchanged, CHRISTOPHER ankur applied. Per vascular Surgery, possible interventions/thrombectomy once the patient is stabilized. 07/01: Transition to subQ insulin yesteday. Patient remains stable, tolerating PO intake. Insulin regimen adjusted for hyperglycemia, continue BG check ACHS and IVF hydration for now. Hyponatremia is improving, nephrology is following. Patient remains on heparin gtt per protocol for BLE ischemia. Possible interventions/thrombectomy tomorrow per Vascular Surgery. 07/02: Patient seen and examined at the bedside. Remains stable on RA, VSS. Yesterday was transitioned to SubQ insulin, tolerating PO intake. BLE ischemia is unchanged with palpable pedal pulses. CHRISTOPHER Holbrook applied per Vascular Surgery. Discussed with vascular surgery today they are going to proceed with bilateral thrombectomy. We will continue on heparin drip at this time. Education provided to the patient on blood sugar control. Compliance discussion also had for 15 minutes counseling. Anticipate discharge in 24 to 48 hours postprocedure 07/03: Patient underwent thrombectomy of bilateral caval iliofemoral DVTs by vascular surgery on 07/02/2022. Patient tolerated the procedure well 07/04: No acute events overnight. 07/05: Cardiac arrest. Transferred to ICU. PICC line placed. Levophed, vasopressin, phenylephrine, intubated on ventilatory support. A-line placed 07/06: This morning patient was placed on CPAP trial which he failed, patient was started and titrated off. No changes to mental status. Echocardiogram read which showed no right heart strain. BUN/creatinine are increasing but we will continue to monitor. Given 1 dose of vancomycin and cefepime given leukocytosis and febrile illness. Bicarbonate drip discontinued. 07/07: Patient was placed on CPAP trial which he failed due to tachypnea. Decreased her insulin regimen due to hypoglycemia. 07/08: No acute events reported overnight, remains on propofol. RT to trial CPAP. Small PE noted on CTA chest which vascular surgery stated would not require intervention and would typically have minimal to no symptoms. 07/09: KARINA overnight. Awake and appropriate, following commands. Tolerating PSV trial, plan for possible extubation per [facility]. Hyperglycemic this am, SSI and Lantus adjusted. Repeat BLE doppler noted, no evidence of DVT, however positive acute superficial thrombosus in BLE. No intervention warranted at this time per Vascular Surgery, continue PO Eliquis. 07/10: S/p extubation, increased O2 supplemenation this am with tachypnea and increased WOB. BUL crackles auscultated, CXR is with increased opacitie Lt greater than Rt. 40mg on IV lasix administered, patient placed on Bipap. Keep patient NPO, insert DHT for meds and enteral nutrition. FWF added for hypernatremia. 07/11: Tolerating HHFL at 60% & 25L this am. Responded well to IV lasix, this am CXR with showed some improvement. Additional IV lasix today, will continue to monitor for response. Continue Bipap at night and wean O2 supplementation as tolerated. Encourage IS and mobility with PT. Qhs Lantus adjusted for persistent hyperglycemia. Continue FWF for hypernatremia. Advance TF as tolerated. 07/12: Respiratory status continue to improve. Remains on HHFL on 55% and 25L, continue to wean O2 as tolerated and Bipap at night. Speech cleared patient for pureed and honey thick liquid. Patient is toleration PO intake, enteral nutrition and DHT discontinued. Still with persistent hyperglycemia, qHs Lantus adjusted and prandial insulin added, continue BG check Q4hrs. Encourage PO hydration for hypernatremia. Monitor and replace electrolytes as needed, continue to trend BMP. Neuro: h/o medical noncompliance, bipolar disorder -Psych consulted, appreciate recommendations -Reorientation as needed -Maintain sleep-wake cycle -As needed analgesia -Per psych: Haldol, Depakote -Bilateral wrist restraints for safety Cardiac: s/p cardiac arrest on 07/05, h/o hypertension, HLD -Cardiology consulted, appreciate recommendations -Blood pressure monitoring per protocol -S/p vasopressor support with Levophed, pheynlepinephrine, vasopressin -MAP goal greater than 65 -Hold home hypertensive regimen of lisinopril and nifedipine -Continue home fenofibrate -Home medications: Lisinopril/hydrochlorothiazide 25/12.5 p.o. daily, fenofibrate 1 consistently grams daily -Echocardiogram shows LVEF 60 to 65%, RVSP 20 mmHg, no RV strain Respiratory: Acute hypoxic respiratory failure -CCM consulted, appreciate recommendations -Intubated on 06/04. s/p extubation on 07/09 -s/p X2 days of IV lasix -On HHFL at 55% and 25L -Repeat CXR with some improvement this am -Continue Bipap at night and wean O2 supplementation as tolerated. -Encourage IS and mobility with PT -Continue SPO2 monitoring for SPO2 goal above 92% GI: Morbid obese, moderate protein calorie malnutrition,Dysphagia -Speech cleared patient for pureed and honey thick diet -Patient is tolerating PO intake, Enteral nutrition D/C -NTR consulted for tube feedings -Speech on consult : Acute kidney injury likely secondary to vasomotor nephropathy (resolved), Hypernatremia -Nephrology consulted, appreciate recommendations -Encourage PO hydration -Monitor intake and output -Renally dose medications -Avoid nephrotoxic medications -Trend BMP ID: Bilateral calf ulcers -General surgery consulted, appreciate recommendations -WOCN -Wound care per nursing -Antibiotic therapy with cefepime/vancomycin x1 -f/u blood culture -Monitor WBC and temperature curve Endo: Diabetes Mellitus with hyperglycemia s/p DKA, hypothyroidism -06/28 hemoglobin A1c 9.7 -SSI and lantus adjusted, Prandial added -Continue home Synthroid -Avoid hypoglycemia -Home regimen: Jardiance 5 mg daily, glimepiride 4 mg twice daily, Latuda 40 mg nightly, Ozempic 1 unit SQ per week Heme: Acute PE, Acute DVT h/o chronic right lower extremity DVT on Eliquis s/p IVC filter -Bilateral lower extremity Doppler ultrasound revealed bilateral lower extremity occlusive DVT with extension to IVC filter -07/07 CTA chest showed few small subsegmental right lower lobe and single distal small segmental right lower lobe pulmonary embolism, consolidation of the left lower lobe -Bilateral lower extremity ultrasound pending -Per vascular surgery minimal thrombus burden, unlikely to represent a cause of acute respiratory arrest, this would typically have minimal to no symptoms, no evidence of significant pulmonary emboli which would require intervention -S/p thrombectomy on 07/02 -s/p Heparin drip, now on Eliquis p.o. -Trend CBC -Transfuse hemoglobin less than 7 -SCDs to BLE while in bed The high probability of a clinically significant, sudden or life threatening deterioration of the [multiple] system(s) required my full and direct attention, intervention and personal management. The aggregate critical care time was [60] minutes. This time is in addition to time spent performing reported procedures but includes the following: [x] Data Review and interpretation [x] Patient assessment and monitoring of vital signs [x] Documentation [x] Medication orders and management Disposition Plan: ICU Total Time Spent with Patient (Minutes): 60 History Interval history: Patient seen and examined at the bedside. Respiratory status improved, remains on HHFL on 55% and 25L, SPO2 at 97%. Patient pass speech swallow yesterday, tolerating PO intake, enteral nutrition discontinued. VSS. Hospitalist Physical - Physical exam Narrative exam: General appearance: Present: no acute distress, well-nourished, obese - EENT Eyes: Present: PERRL, EOM intact ENT: hearing intact, other (Dry oral mucosa) - Neck Neck: Present: normal ROM - Respiratory Respiratory effort: normal Respiratory: bilateral: rhonchi, wheezing - Cardiovascular Rhythm: regular Heart Sounds: Present: S1 & S2 - Extremities Extremities: no ischemia, pulses intact, pulses symmetrical, abnormal (BLE dressings, Christopher hose stockings present) Extremity abnormal: edema - Peripheral Assessment Generalized Edema Type: Non-pitting Edema Degree: 3+ Capillary Refill: < 3 seconds Skin Temperature: Warm Peripheral Pulses: within normal limits - Abdominal General gastrointestinal: soft, non-distended, normal bowel sounds - Integumentary Integumentary: Present: warm, dry - Psychiatric Psychiatric: appropriate mood/affect, cooperative - Neurologic Neurologic: moves all extremities - Allied Health Allied health notes reviewed: nursing, case management - Constitutional Vitals: Temp Pulse Resp BP Pulse Ox 97.6 F 68 25 H 136/65 96 07/12/22 08:39 07/12/22 10:00 07/12/22 10:00 07/12/22 10:00 07/12/22 10:00 HEART Score - HEART Score Troponin: Troponin T 0.080 ng/mL (0.00-0.029) H 06/27/22 20:48 Results - Labs CBC & Chem 7: 07/12/22 04:18 07/12/22 04:18 Labs: Laboratory Last Values WBC 8.3 K/mm3 (4.5-11.0) 07/12/22 04:18 RBC 3.44 M/mm3 (3.65-5.03) L 07/12/22 04:18 Hgb 10.3 gm/dl (10.1-14.3) 07/12/22 04:18 Hct 32.4 % (30.3-42.9) 07/12/22 04:18 MCV 94 fl (79-97) 07/12/22 04:18 MCH 30 pg (28-32) 07/12/22 04:18 MCHC 32 % (30-34) 07/12/22 04:18 RDW 14.5 % (13.2-15.2) 07/12/22 04:18 Plt Count 198 K/mm3 (140-440) 07/12/22 04:18 Lymph % (Auto) 22.2 % (13.4-35.0) 07/12/22 04:18 [place] % (Auto) 7.4 % (0.0-7.3) H 07/12/22 04:18 Eos % (Auto) 0.6 % (0.0-4.3) 07/12/22 04:18 Baso % (Auto) 0.9 % (0.0-1.8) 07/12/22 04:18 Lymph # (Auto) 1.8 K/mm3 (1.2-5.4) 07/12/22 04:18 [place] # (Auto) 0.6 K/mm3 (0.0-0.8) 07/12/22 04:18 Eos # (Auto) 0.0 K/mm3 (0.0-0.4) 07/12/22 04:18 Baso # (Auto) 0.1 K/mm3 (0.0-0.1) 07/12/22 04:18 Add Manual Diff Complete 07/05/22 Unknown Total Counted 100 07/05/22 Unknown Seg Neutrophils % 68.9 % (40.0-70.0) 07/12/22 04:18 Seg Neuts % (Manual) 91.0 % (40.0-70.0) H 07/05/22 Unknown Band Neutrophils % 0 % 07/05/22 Unknown Lymphocytes % (Manual) 1.0 % (13.4-35.0) L 07/05/22 Unknown Reactive Lymphs % (Man) 0 % 07/05/22 Unknown Monocytes % (Manual) 4.0 % (0.0-7.3) 07/05/22 Unknown Eosinophils % (Manual) 0 % (0.0-4.3) 07/05/22 Unknown Basophils % (Manual) 0 % (0.0-1.8) 07/05/22 Unknown Metamyelocytes % 3.0 % 07/05/22 Unknown Myelocytes % 1.0 % 07/05/22 Unknown Promyelocytes % 0 % 07/05/22 Unknown Blast Cells % 0 % 07/05/22 Unknown Nucleated RBC % Not Reportable 07/05/22 Unknown Seg Neutrophils # 5.7 K/mm3 (1.8-7.7) 07/12/22 04:18 Seg Neutrophils # Man 15.0 K/mm3 (1.8-7.7) H 07/05/22 Unknown Band Neutrophils # 0.0 K/mm3 07/05/22 Unknown Lymphocytes # (Manual) 0.2 K/mm3 (1.2-5.4) L 07/05/22 Unknown Abs React Lymphs (Man) 0.0 K/mm3 07/05/22 Unknown Monocytes # (Manual) 0.7 K/mm3 (0.0-0.8) 07/05/22 Unknown Eosinophils # (Manual) 0.0 K/mm3 (0.0-0.4) 07/05/22 Unknown Basophils # (Manual) 0.0 K/mm3 (0.0-0.1) 07/05/22 Unknown Metamyelocytes # 0.5 K/mm3 07/05/22 Unknown Myelocytes # 0.2 K/mm3 07/05/22 Unknown Promyelocytes # 0.0 K/mm3 07/05/22 Unknown Blast Cells # 0.0 K/mm3 07/05/22 Unknown WBC Morphology Not Reportable 07/05/22 Unknown WBC Morphology TNR 07/05/22 Unknown Hypersegmented Neuts Not Reportable 07/05/22 Unknown Hyposegmented Neuts Not Reportable 07/05/22 Unknown Hypogranular Neuts Not Reportable 07/05/22 Unknown Smudge Cells Not Reportable 07/05/22 Unknown Toxic Granulation Not Reportable 07/05/22 Unknown Toxic Vacuolation Not Reportable 07/05/22 Unknown Dohle Bodies Not Reportable 07/05/22 Unknown Pelger-Huet Anomaly Not Reportable 07/05/22 Unknown Jesús Rods Not Reportable 07/05/22 Unknown Platelet Estimate Consistent w auto 07/05/22 Unknown Clumped Platelets Few 07/05/22 Unknown Plt Clumps, EDTA Not Reportable 07/05/22 Unknown Large Platelets Not Reportable 07/05/22 Unknown Giant Platelets Not Reportable 07/05/22 Unknown Platelet Satelliting Not Reportable 07/05/22 Unknown Plt Morphology Comment Not Reportable 07/05/22 Unknown RBC Morphology Normal 07/05/22 Unknown Dimorphic RBCs Not Reportable 07/05/22 Unknown Polychromasia Not Reportable 07/05/22 Unknown Hypochromasia Not Reportable 07/05/22 Unknown Poikilocytosis Not Reportable 07/05/22 Unknown Anisocytosis Not Reportable 07/05/22 Unknown Microcytosis Not Reportable 07/05/22 Unknown Macrocytosis Not Reportable 07/05/22 Unknown Spherocytes Not Reportable 07/05/22 Unknown Pappenheimer Bodies Not Reportable 07/05/22 Unknown Sickle Cells Not Reportable 07/05/22 Unknown Target Cells Not Reportable 07/05/22 Unknown Tear Drop Cells Not Reportable 07/05/22 Unknown Ovalocytes Not Reportable 07/05/22 Unknown Helmet Cells Not Reportable 07/05/22 Unknown [place] Bodies Not Reportable 07/05/22 Unknown [place] Rings Not Reportable 07/05/22 Unknown [place] Cells Not Reportable 07/05/22 Unknown Bite Cells Not Reportable 07/05/22 Unknown Crenated Cell Not Reportable 07/05/22 Unknown Elliptocytes Not Reportable 07/05/22 Unknown Acanthocytes (Spur) Not Reportable 07/05/22 Unknown Rouleaux Not Reportable 07/05/22 Unknown Hemoglobin C Crystals Not Reportable 07/05/22 Unknown Schistocytes Not Reportable 07/05/22 Unknown Malaria parasites Not Reportable 07/05/22 Unknown Ellis Bodies Not Reportable 07/05/22 Unknown Hem Pathologist Commnt No 07/05/22 Unknown PT 17.3 Sec. (12.2-14.9) H 07/02/22 20:28 INR 1.26 (0.87-1.13) H 07/02/22 20:28 APTT 24.1 Sec. (24.2-36.6) L 07/02/22 20:28 Heparin Anti-Xa Level 0.21 U.I./ml (0.3-0.7) L 07/02/22 08:12 ABG pH 7.352 pH Units (7.350-7.450) 07/09/22 11:35 ABG pCO2 57.9 mm Hg 07/09/22 11:35 ABG pO2 74.0 mm Hg (80.0-90.0) L 07/09/22 11:35 ABG HCO3 31.4 mmol/L (20.0-26.0) H 07/09/22 11:35 ABG O2 Saturation 95.2 % (95.0-99.0) 07/09/22 11:35 ABG O2 Content 14.6 (0.0-44) 07/09/22 11:35 ABG Base Excess 4.6 mmol/L (-2.0-3.0) H 07/09/22 11:35 ABG Hemoglobin 11.1 gm/dl (12.0-16.0) L 07/09/22 11:35 ABG Carboxyhemoglobin 1.8 % (0.0-5.0) 07/09/22 11:35 ABG Methemoglobin 0.4 % (0.0-1.5) 07/09/22 11:35 Oxyhemoglobin 93.1 % (95.0-99.0) L 07/09/22 11:35 FiO2 40 % 07/09/22 11:35 Sodium 149 mmol/L (137-145) H 07/12/22 04:18 Potassium 4.2 mmol/L (3.6-5.0) 07/12/22 04:18 Chloride 105.5 mmol/L (98-107) 07/12/22 04:18 Carbon Dioxide 41 mmol/L (22-30) H* D 07/12/22 04:18 Anion Gap 7 mmol/L 07/12/22 04:18 BUN 19 mg/dL (7-17) H 07/12/22 04:18 Creatinine 0.9 mg/dL (0.6-1.2) 07/12/22 04:18 Estimated GFR > 60 ml/min 07/12/22 04:18 BUN/Creatinine Ratio 21 % 07/12/22 04:18 Glucose 207 mg/dL (65-100) H 07/12/22 04:18 POC Glucose 258 mg/dL (70-105) H 07/12/22 02:11 Hemoglobin A1c 9.7 % (4-6) H 06/28/22 20:31 Lactic Acid 1.90 mmol/L (0.7-2.0) 06/29/22 10:47 Calcium 9.4 mg/dL (8.4-10.2) 07/12/22 04:18 Phosphorus 2.10 mg/dL (2.5-4.5) L 07/12/22 04:18 Magnesium 2.20 mg/dL (1.7-2.3) 07/12/22 04:18 Total Bilirubin 0.30 mg/dL (0.1-1.2) 07/12/22 04:18 AST 13 units/L (5-40) 07/12/22 04:18 ALT 19 units/L (7-56) 07/12/22 04:18 Alkaline Phosphatase 82 units/L (35-129) 07/12/22 04:18 Troponin T 0.080 ng/mL (0.00-0.029) H 06/27/22 20:48 NT-Pro-B Natriuret Pep 4137 pg/mL (0-900) H 06/27/22 20:48 Total Protein 5.5 g/dL (6.3-8.2) L 07/12/22 04:18 Albumin 2.6 g/dL (3.9-5) L 07/12/22 04:18 Albumin/Globulin Ratio 0.9 % 07/12/22 04:18 Triglycerides 349 mg/dL (2-149) H 06/27/22 20:48 Cholesterol 156 mg/dL (50-199) 06/27/22 20:48 LDL Cholesterol Direct 37 mg/dL (50-130) L 06/27/22 20:48 HDL Cholesterol 38 mg/dL (40-59) L 06/27/22 20:48 Cholesterol/HDL Ratio 4.10 % 06/27/22 20:48 Procalcitonin 2.51 ng/mL (<0.15) 06/29/22 10:47 PTH Intact 382.4 pg/mL (15-65) H 06/29/22 04:21 Urine Creatinine 85.4 mg/dL (0.1-20.0) H 06/28/22 08:10 Protein/Creatinin Ratio 0.57 06/28/22 08:10 Urine Sodium 10 mmol/L 06/28/22 08:10 Urine Total Protein 49 mg/dL (5-11.8) H 06/28/22 08:10 Urine Opiates Screen Negative 07/11/22 05:00 Urine Methadone Screen Negative 07/11/22 05:00 Ur Barbiturates Screen Negative 07/11/22 05:00 Ur Phencyclidine Scrn Negative 07/11/22 05:00 Ur Amphetamines Screen Negative 07/11/22 05:00 U Benzodiazepines Scrn Negative 07/11/22 05:00 Urine Cocaine Screen Negative 07/11/22 05:00 U Marijuana (THC) Screen Negative 07/11/22 05:00 Drugs of Abuse Note Disclamer 07/11/22 05:00 Microbiology: Microbiology 07/07/22 14:29 Peripheral/Venous Blood Culture - Preliminary NO GROWTH AFTER 4 DAYS 07/07/22 14:29 Peripheral/Venous Blood Culture - Preliminary NO GROWTH AFTER 4 DAYS Tian/IV: Voiding Method External Female Catheter Active Medications - Current Medications Current Medications: Generic Name Dose Route Start Last Admin Trade Name Freq PRN Reason Stop Dose Admin Acetaminophen 650 mg 06/28/22 03:09 Acetaminophen 325 Mg Tab PO Q6H PRN Pain MILD(1-3)/Fever >100.5/MURILLO Acetazolamide 500 mg 07/12/22 11:00 Acetazolamide 250 Mg Tab PO 07/12/22 12:00 ONCE NR Albuterol 2.5 mg 07/10/22 19:44 Albuterol 2.5 Mg/3 Ml Nebu IH Q4HRT PRN Shortness Of Breath Albuterol/Ipratropium 1 ampul 07/10/22 21:00 07/12/22 08:07 Ipratropium/Albuterol Sulfate 3 Ml Ampul.Neb IH 1 ampul Q6HRT SHANTHI Administration Lipase/Protease/Amylase 1 each 07/05/22 11:00 Lipase 10,500/Protease 25,000/Amylase 43,750 (Units) Dr [place] FEEDTUBE PRN PRN For Clogged Feeding Tube Apixaban 5 mg 07/10/22 10:00 07/12/22 09:56 Apixaban 5 Mg Tab FEEDTUBE 5 mg Q12HR SHANTHI Administration Protocol Atorvastatin Calcium 40 mg 07/05/22 10:38 07/11/22 22:20 Atorvastatin 40 Mg Tab FEEDTUBE 40 mg QHS SHANTHI Administration Dextrose 50 ml 07/12/22 09:00 Dextrose 50% In Water (25gm) 50 Ml Syringe IV Q30MIN PRN Hypoglycemia Protocol Hydrophilic Ointment 1 applic 07/05/22 12:00 Lip Therapy Vaseline TP Q2H PRN Dry Lips Hydroxyzine Pamoate 25 mg 07/11/22 15:00 Hydroxyzine Pamoate 25 Mg Cap PO Q6H PRN Anxiety Insulin Glargine 35 units 07/12/22 22:00 Insulin Glargine 100 Units/Ml SUB-Q QHS [facility] Insulin Human Lispro 0 unit 07/09/22 10:00 07/12/22 09:56 Insulin Lispro 100 Unit/Ml SUB-Q 4 unit Q4HR SHANTHI Administration Protocol Insulin Human Lispro 5 unit 07/12/22 11:30 Insulin Lispro 100 Unit/Ml SUB-Q 07/13/22 11:29 AC SHANTHI Lansoprazole 30 mg 07/06/22 10:00 07/12/22 09:56 Lansoprazole 30 Mg Solutab FEEDTUBE 30 mg QDAY SHANTHI Administration Levothyroxine Sodium 112 mcg 07/05/22 12:00 07/12/22 09:56 Levothyroxine 112 Mcg Tab FEEDTUBE 112 mcg QAM SHANTHI Administration Mirtazapine 15 mg 07/07/22 22:00 07/11/22 22:20 Mirtazapine 15 Mg Solutab PO 15 mg QHS SHANTHI Administration Multi-Ingred Cream/Lotion/Oil/Oint 1 applic 07/05/22 11:00 Mineral Oil/Petrolatum, White Ophth Oint 3.5 Gm OU Q4H PRN Dry Eye(s) Nicotine 21 mg 07/04/22 15:00 07/12/22 09:56 Nicotine 21 Mg/24 Hr Patch TD 21 mg QDAY SHANTHI Administration Ondansetron HCl 4 mg 06/28/22 03:09 06/28/22 05:44 Ondansetron 4 Mg/2 Ml Inj IV 4 mg Q8H PRN Administration Nausea And Vomiting Senna/Docusate Sodium 1 tab 07/05/22 11:00 07/12/22 09:57 Sennosides/Docusate Sodium 8.6/50 Mg Tab FEEDTUBE 1 tab BID SHANTHI Administration Simple Syrup 15 ml 07/05/22 11:00 Simple Syrup 15 Ml FEEDTUBE PRN PRN Hypoglycemia Simple Syrup 30 ml 07/05/22 11:00 Simple Syrup 15 Ml FEEDTUBE PRN PRN Hypoglycemia Sodium Bicarbonate 325 mg 07/05/22 10:26 Sodium Bicarbonate 325 Mg Tab FEEDTUBE PRN PRN For Clogged Feeding Tube Sodium Chloride 10 ml 06/28/22 10:00 07/12/22 09:56 Sodium Chloride 0.9% 10 Ml Flush Syringe IV 10 ml BID SHANTHI Administration Sodium Chloride 10 ml 06/28/22 03:09 Sodium Chloride 0.9% 10 Ml Flush Syringe IV PRN PRN LINE FLUSH Sodium Phosphate 250 mg 09/29/22 10:00 07/12/22 09:56 K-Phos Neutral 250 Mg Tab PO 07/12/22 18:01 250 mg QID SHANTHI Administration Valproic Acid 250 mg 07/08/22 18:00 07/12/22 06:28 Valproic Acid 250 Mg/5 Ml Oral Liqd FEEDTUBE 250 mg Q6HR SHANTHI Administration Nutrition/Malnutrition Assess - Dietary Evaluation Nutrition/Malnutrition Findings: Nutrition Notes Start: 06/28/22 11:39 Freq: Status: Active Protocol: Document 07/10/22 14:11 CHRISTAL (Rec: 07/10/22 15:42 CHRISTAL [id number]) Nutrition Notes Initial or Follow up Reassessment Current Diagnosis COPD,Diabetes,Hypertension Other Pertinent Diagnosis S/p PEA/ROSC, s/p STEFFANIE, s/p DKA , DVT s/p LE Angioplasty. Current Diet TF-Glucerna 1.2 Prabhjot @ 55 ml/hr (from D 07/10). Labs/Tests 07/10: Na 148, CO2 32, BUN 31, Glu 253. Pertinent Medications 07/10: Humalog 3U, Levothyroxine, others nutritionally unremarkable. Height 5 ft 4 in Weight 139.6 kg [place] Body Weight (kg) 54.54 BMI 52.8 Weight change and time frame No body weight change reported in 12 days. Weight Status Morbidly Obese Subjective/Other Information RD consult for write/manage TF assessment. Formula has to change, Pt extubated on 07/09. Pt on Nasal Cannula, O2 saturation @ 94%, according to Physical Assessment History notes. DIESEL CRANE OPERATOR note on 07/10/22 11:37: Swallowing function has been assessed. Patient is at profound risk for PO. Recommend NPO and no water or icechips. Will continue to follow. Informed the patient's nurse. - END OF NOTE. Percent of energy/protein needs met: Prescribed TF-Glucerna 1.2 Prabhjot @ 55 ml/hr provides for energy/protein needs (1,570 Kcal/79 g) during LOS, 102% Kcal; 100% AA. Burn Absent Trauma Absent GI Symptoms None Difficulty In Swallowing Food Allergy No Skin Integrity/Comment Bilateral LE redness/echimosis . 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 DIESEL CRANE OPERATOR note on 07/10/22 11:37: Swallowing function has been assessed. Patient is at profound risk for PO. Recommend NPO and no water or icechips. Will continue to follow. Informed the patient's nurse. - END OF NOTE. Diagnosis Progress(for reassessment Continues documentation) #1 Nutrition Diagnosis Overweight/obesity Diagnosis Progress(for reassessment Continues documentation) Is patient on ventilator? No Is Patient Ambulatory and/or Out of Bed No [facility] 2392.512 Kcal/Kg value to use for calculation 11 Approximate Energy Requirements Using 1536 kcal/Kg Calculation Used for Recommendations Kcal/kg Additional Notes Protein: 0.8-1.2 g/Kg AdjBW; 77-115 g/day. Fluids: 1 ml/Kcal, or as per MD. Nutrition Intervention Nutrition Support: Change formula to TF-Glucerna 1.2 Prabhjot @ 55 ml/hr. Start with Trickle feed per MD . Flush: 80 ml water Q4 hr, or as per MD. Kcal 1,570 Protein (gm) 79 Carbohydrates (gm) 150 Fat (gm) 79 Fluid (mL) 1,053 Fiber (gm) 21 % RDI: 102% Kcal; 100% AA. Goal #1 Provide at least 75% of energy /protein needs through Enteral Feeding during LOS. Goal #2 Adjust the dietary intervention to better serve Pt's energy/protein needs and clinical conditions during LOS . Follow-Up By: 07/13/22 Additional Comments Continue monitoring TF tolerance, DIESEL CRANE OPERATOR recommendations , TF rate adjustments, and BM. <MASON ANDRADE E - Last Filed: 07/13/22 07:21> Assessment and Plan Assessment and plan: I saw and evaluated the patient. I agree with the findings and the plan of care as documented in the Nurse Practitioner's~note, with the following corrections and additions. Hospitalist Physical - Constitutional Vitals: Temp Pulse Resp BP Pulse Ox 98.1 F 64 18 110/62 99 07/13/22 03:20 07/13/22 06:01 07/13/22 06:01 07/13/22 06:01 07/13/22 06:01 HEART Score - HEART Score Troponin: Troponin T 0.080 ng/mL (0.00-0.029) H 06/27/22 20:48 Results - Labs CBC & Chem 7: 07/12/22 04:18 07/13/22 04:03 Labs: Laboratory Last Values WBC 8.3 K/mm3 (4.5-11.0) 07/12/22 04:18 RBC 3.44 M/mm3 (3.65-5.03) L 07/12/22 04:18 Hgb 10.3 gm/dl (10.1-14.3) 07/12/22 04:18 Hct 32.4 % (30.3-42.9) 07/12/22 04:18 MCV 94 fl (79-97) 07/12/22 04:18 MCH 30 pg (28-32) 07/12/22 04:18 MCHC 32 % (30-34) 07/12/22 04:18 RDW 14.5 % (13.2-15.2) 07/12/22 04:18 Plt Count 198 K/mm3 (140-440) 07/12/22 04:18 Lymph % (Auto) 22.2 % (13.4-35.0) 07/12/22 04:18 [place] % (Auto) 7.4 % (0.0-7.3) H 07/12/22 04:18 Eos % (Auto) 0.6 % (0.0-4.3) 07/12/22 04:18 Baso % (Auto) 0.9 % (0.0-1.8) 07/12/22 04:18 Lymph # (Auto) 1.8 K/mm3 (1.2-5.4) 07/12/22 04:18 [place] # (Auto) 0.6 K/mm3 (0.0-0.8) 07/12/22 04:18 Eos # (Auto) 0.0 K/mm3 (0.0-0.4) 07/12/22 04:18 Baso # (Auto) 0.1 K/mm3 (0.0-0.1) 07/12/22 04:18 Add Manual Diff Complete 07/05/22 Unknown Total Counted 100 07/05/22 Unknown Seg Neutrophils % 68.9 % (40.0-70.0) 07/12/22 04:18 Seg Neuts % (Manual) 91.0 % (40.0-70.0) H 07/05/22 Unknown Band Neutrophils % 0 % 07/05/22 Unknown Lymphocytes % (Manual) 1.0 % (13.4-35.0) L 07/05/22 Unknown Reactive Lymphs % (Man) 0 % 07/05/22 Unknown Monocytes % (Manual) 4.0 % (0.0-7.3) 07/05/22 Unknown Eosinophils % (Manual) 0 % (0.0-4.3) 07/05/22 Unknown Basophils % (Manual) 0 % (0.0-1.8) 07/05/22 Unknown Metamyelocytes % 3.0 % 07/05/22 Unknown Myelocytes % 1.0 % 07/05/22 Unknown Promyelocytes % 0 % 07/05/22 Unknown Blast Cells % 0 % 07/05/22 Unknown Nucleated RBC % Not Reportable 07/05/22 Unknown Seg Neutrophils # 5.7 K/mm3 (1.8-7.7) 07/12/22 04:18 Seg Neutrophils # Man 15.0 K/mm3 (1.8-7.7) H 07/05/22 Unknown Band Neutrophils # 0.0 K/mm3 07/05/22 Unknown Lymphocytes # (Manual) 0.2 K/mm3 (1.2-5.4) L 07/05/22 Unknown Abs React Lymphs (Man) 0.0 K/mm3 07/05/22 Unknown Monocytes # (Manual) 0.7 K/mm3 (0.0-0.8) 07/05/22 Unknown Eosinophils # (Manual) 0.0 K/mm3 (0.0-0.4) 07/05/22 Unknown Basophils # (Manual) 0.0 K/mm3 (0.0-0.1) 07/05/22 Unknown Metamyelocytes # 0.5 K/mm3 07/05/22 Unknown Myelocytes # 0.2 K/mm3 07/05/22 Unknown Promyelocytes # 0.0 K/mm3 07/05/22 Unknown Blast Cells # 0.0 K/mm3 07/05/22 Unknown WBC Morphology Not Reportable 07/05/22 Unknown WBC Morphology TNR 07/05/22 Unknown Hypersegmented Neuts Not Reportable 07/05/22 Unknown Hyposegmented Neuts Not Reportable 07/05/22 Unknown Hypogranular Neuts Not Reportable 07/05/22 Unknown Smudge Cells Not Reportable 07/05/22 Unknown Toxic Granulation Not Reportable 07/05/22 Unknown Toxic Vacuolation Not Reportable 07/05/22 Unknown Dohle Bodies Not Reportable 07/05/22 Unknown Pelger-Huet Anomaly Not Reportable 07/05/22 Unknown Jesús Rods Not Reportable 07/05/22 Unknown Platelet Estimate Consistent w auto 07/05/22 Unknown Clumped Platelets Few 07/05/22 Unknown Plt Clumps, EDTA Not Reportable 07/05/22 Unknown Large Platelets Not Reportable 07/05/22 Unknown Giant Platelets Not Reportable 07/05/22 Unknown Platelet Satelliting Not Reportable 07/05/22 Unknown Plt Morphology Comment Not Reportable 07/05/22 Unknown RBC Morphology Normal 07/05/22 Unknown Dimorphic RBCs Not Reportable 07/05/22 Unknown Polychromasia Not Reportable 07/05/22 Unknown Hypochromasia Not Reportable 07/05/22 Unknown Poikilocytosis Not Reportable 07/05/22 Unknown Anisocytosis Not Reportable 07/05/22 Unknown Microcytosis Not Reportable 07/05/22 Unknown Macrocytosis Not Reportable 07/05/22 Unknown Spherocytes Not Reportable 07/05/22 Unknown Pappenheimer Bodies Not Reportable 07/05/22 Unknown Sickle Cells Not Reportable 07/05/22 Unknown Target Cells Not Reportable 07/05/22 Unknown Tear Drop Cells Not Reportable 07/05/22 Unknown Ovalocytes Not Reportable 07/05/22 Unknown Helmet Cells Not Reportable 07/05/22 Unknown [place] Bodies Not Reportable 07/05/22 Unknown [place] Rings Not Reportable 07/05/22 Unknown [place] Cells Not Reportable 07/05/22 Unknown Bite Cells Not Reportable 07/05/22 Unknown Crenated Cell Not Reportable 07/05/22 Unknown Elliptocytes Not Reportable 07/05/22 Unknown Acanthocytes (Spur) Not Reportable 07/05/22 Unknown Rouleaux Not Reportable 07/05/22 Unknown Hemoglobin C Crystals Not Reportable 07/05/22 Unknown Schistocytes Not Reportable 07/05/22 Unknown Malaria parasites Not Reportable 07/05/22 Unknown Ellis Bodies Not Reportable 07/05/22 Unknown Hem Pathologist Commnt No 07/05/22 Unknown PT 17.3 Sec. (12.2-14.9) H 07/02/22 20:28 INR 1.26 (0.87-1.13) H 07/02/22 20:28 APTT 24.1 Sec. (24.2-36.6) L 07/02/22 20:28 Heparin Anti-Xa Level 0.21 U.I./ml (0.3-0.7) L 07/02/22 08:12 ABG pH 7.352 pH Units (7.350-7.450) 07/09/22 11:35 ABG pCO2 57.9 mm Hg 07/09/22 11:35 ABG pO2 74.0 mm Hg (80.0-90.0) L 07/09/22 11:35 ABG HCO3 31.4 mmol/L (20.0-26.0) H 07/09/22 11:35 ABG O2 Saturation 95.2 % (95.0-99.0) 07/09/22 11:35 ABG O2 Content 14.6 (0.0-44) 07/09/22 11:35 ABG Base Excess 4.6 mmol/L (-2.0-3.0) H 07/09/22 11:35 ABG Hemoglobin 11.1 gm/dl (12.0-16.0) L 07/09/22 11:35 ABG Carboxyhemoglobin 1.8 % (0.0-5.0) 07/09/22 11:35 ABG Methemoglobin 0.4 % (0.0-1.5) 07/09/22 11:35 Oxyhemoglobin 93.1 % (95.0-99.0) L 07/09/22 11:35 FiO2 40 % 07/09/22 11:35 Sodium 148 mmol/L (137-145) H 07/13/22 04:03 Potassium 4.6 mmol/L (3.6-5.0) 07/13/22 04:03 Chloride 103.1 mmol/L (98-107) 07/13/22 04:03 Carbon Dioxide 40 mmol/L (22-30) H 07/13/22 04:03 Anion Gap 10 mmol/L 07/13/22 04:03 BUN 15 mg/dL (7-17) 07/13/22 04:03 Creatinine 0.9 mg/dL (0.6-1.2) 07/13/22 04:03 Estimated GFR > 60 ml/min 07/13/22 04:03 BUN/Creatinine Ratio 17 % 07/13/22 04:03 Glucose 145 mg/dL (65-100) H 07/13/22 04:03 POC Glucose 191 mg/dL (70-105) H 07/13/22 05:19 Hemoglobin A1c 9.7 % (4-6) H 06/28/22 20:31 Lactic Acid 1.90 mmol/L (0.7-2.0) 06/29/22 10:47 Calcium 9.6 mg/dL (8.4-10.2) 07/13/22 04:03 Phosphorus 3.00 mg/dL (2.5-4.5) D 07/13/22 04:03 Magnesium 2.10 mg/dL (1.7-2.3) 07/13/22 04:03 Total Bilirubin 0.30 mg/dL (0.1-1.2) 07/12/22 04:18 AST 13 units/L (5-40) 07/12/22 04:18 ALT 19 units/L (7-56) 07/12/22 04:18 Alkaline Phosphatase 82 units/L (35-129) 07/12/22 04:18 Troponin T 0.080 ng/mL (0.00-0.029) H 06/27/22 20:48 NT-Pro-B Natriuret Pep 4137 pg/mL (0-900) H 06/27/22 20:48 Total Protein 5.5 g/dL (6.3-8.2) L 07/12/22 04:18 Albumin 2.6 g/dL (3.9-5) L 07/12/22 04:18 Albumin/Globulin Ratio 0.9 % 07/12/22 04:18 Triglycerides 349 mg/dL (2-149) H 06/27/22 20:48 Cholesterol 156 mg/dL (50-199) 06/27/22 20:48 LDL Cholesterol Direct 37 mg/dL (50-130) L 06/27/22 20:48 HDL Cholesterol 38 mg/dL (40-59) L 06/27/22 20:48 Cholesterol/HDL Ratio 4.10 % 06/27/22 20:48 Procalcitonin 2.51 ng/mL (<0.15) 06/29/22 10:47 PTH Intact 382.4 pg/mL (15-65) H 06/29/22 04:21 Urine Creatinine 85.4 mg/dL (0.1-20.0) H 06/28/22 08:10 Protein/Creatinin Ratio 0.57 06/28/22 08:10 Urine Sodium 10 mmol/L 06/28/22 08:10 Urine Total Protein 49 mg/dL (5-11.8) H 06/28/22 08:10 Urine Opiates Screen Negative 07/11/22 05:00 Urine Methadone Screen Negative 07/11/22 05:00 Ur Barbiturates Screen Negative 07/11/22 05:00 Ur Phencyclidine Scrn Negative 07/11/22 05:00 Ur Amphetamines Screen Negative 07/11/22 05:00 U Benzodiazepines Scrn Negative 07/11/22 05:00 Urine Cocaine Screen Negative 07/11/22 05:00 U Marijuana (THC) Screen Negative 07/11/22 05:00 Drugs of Abuse Note Disclamer 07/11/22 05:00 Microbiology: Microbiology 07/07/22 14:29 Peripheral/Venous Blood Culture - Final NO GROWTH AFTER 5 DAYS 07/07/22 14:29 Peripheral/Venous Blood Culture - Final NO GROWTH AFTER 5 DAYS Tian/IV: Voiding Method External Female Catheter Active Medications - Current Medications Current Medications: Generic Name Dose Route Start Last Admin Trade Name Freq PRN Reason Stop Dose Admin Acetaminophen 650 mg 06/28/22 03:09 Acetaminophen 325 Mg Tab PO Q6H PRN Pain MILD(1-3)/Fever >100.5/MURILLO Albuterol 2.5 mg 07/10/22 19:44 Albuterol 2.5 Mg/3 Ml Nebu IH Q4HRT PRN Shortness Of Breath Albuterol/Ipratropium 1 ampul 07/10/22 21:00 07/13/22 02:25 Ipratropium/Albuterol Sulfate 3 Ml Ampul.Neb IH 1 ampul Q6HRT SHANTHI Administration Lipase/Protease/Amylase 1 each 07/05/22 11:00 Lipase 10,500/Protease 25,000/Amylase 43,750 (Units) Dr [place] FEEDTUBE PRN PRN For Clogged Feeding Tube Apixaban 5 mg 07/10/22 10:00 07/12/22 22:25 Apixaban 5 Mg Tab FEEDTUBE 5 mg Q12HR SHANTHI Administration Protocol Atorvastatin Calcium 40 mg 07/05/22 10:38 07/12/22 22:26 Atorvastatin 40 Mg Tab FEEDTUBE 40 mg QHS SHANTHI Administration Dextrose 50 ml 07/12/22 09:00 Dextrose 50% In Water (25gm) 50 Ml Syringe IV Q30MIN PRN Hypoglycemia Protocol Hydrophilic Ointment 1 applic 07/05/22 12:00 Lip Therapy Vaseline TP Q2H PRN Dry Lips Hydroxyzine Pamoate 25 mg 07/11/22 15:00 Hydroxyzine Pamoate 25 Mg Cap PO Q6H PRN Anxiety Insulin Glargine 35 units 07/12/22 22:00 07/12/22 22:25 Insulin Glargine 100 Units/Ml SUB-Q 35 units QHS SHANTHI Administration Insulin Human Lispro 5 unit 07/12/22 11:30 07/12/22 16:48 Insulin Lispro 100 Unit/Ml SUB-Q 5 unit AC SHANTHI Administration Insulin Human Lispro 0 unit 07/12/22 22:00 07/12/22 22:25 Insulin Lispro 100 Unit/Ml SUB-Q 6 unit ACHS SHANTHI Administration Protocol Lansoprazole 30 mg 07/06/22 10:00 07/12/22 09:56 Lansoprazole 30 Mg Solutab FEEDTUBE 30 mg QDAY SHANTHI Administration Levothyroxine Sodium 112 mcg 07/05/22 12:00 07/12/22 09:56 Levothyroxine 112 Mcg Tab FEEDTUBE 112 mcg QAM SHANTHI Administration Mirtazapine 15 mg 07/07/22 22:00 07/12/22 22:26 Mirtazapine 15 Mg Solutab PO 15 mg QHS SHANTHI Administration Multi-Ingred Cream/Lotion/Oil/Oint 1 applic 07/05/22 11:00 Mineral Oil/Petrolatum, White Ophth Oint 3.5 Gm OU Q4H PRN Dry Eye(s) Nicotine 21 mg 07/04/22 15:00 07/12/22 09:56 Nicotine 21 Mg/24 Hr Patch TD 21 mg QDAY SHANTHI Administration Ondansetron HCl 4 mg 06/28/22 03:09 07/12/22 17:46 Ondansetron 4 Mg/2 Ml Inj IV 4 mg Q8H PRN Administration Nausea And Vomiting Senna/Docusate Sodium 1 tab 07/05/22 11:00 07/12/22 22:26 Sennosides/Docusate Sodium 8.6/50 Mg Tab FEEDTUBE 1 tab BID SHANTHI Administration Simple Syrup 15 ml 07/05/22 11:00 Simple Syrup 15 Ml FEEDTUBE PRN PRN Hypoglycemia Simple Syrup 30 ml 07/05/22 11:00 Simple Syrup 15 Ml FEEDTUBE PRN PRN Hypoglycemia Sodium Bicarbonate 325 mg 07/05/22 10:26 Sodium Bicarbonate 325 Mg Tab FEEDTUBE PRN PRN For Clogged Feeding Tube Sodium Chloride 10 ml 06/28/22 10:00 07/12/22 22:26 Sodium Chloride 0.9% 10 Ml Flush Syringe IV 10 ml BID SHANTHI Administration Sodium Chloride 10 ml 06/28/22 03:09 Sodium Chloride 0.9% 10 Ml Flush Syringe IV PRN PRN LINE FLUSH Valproic Acid 250 mg 07/08/22 18:00 07/13/22 06:14 Valproic Acid 250 Mg/5 Ml Oral Liqd FEEDTUBE 250 mg Q6HR SHANTHI Administration Nutrition/Malnutrition Assess - Dietary Evaluation Nutrition/Malnutrition Findings: Nutrition Notes Start: 06/28/22 11:39 Freq: Status: Active Protocol: Document 07/10/22 14:11 CHRISTAL (Rec: 07/10/22 15:42 CHRISTAL [id number]) Nutrition Notes Initial or Follow up Reassessment Current Diagnosis COPD,Diabetes,Hypertension Other Pertinent Diagnosis S/p PEA/ROSC, s/p STEFFANIE, s/p DKA , DVT s/p LE Angioplasty. Current Diet TF-Glucerna 1.2 Prabhjot @ 55 ml/hr (from D 07/10). Labs/Tests 07/10: Na 148, CO2 32, BUN 31, Glu 253. Pertinent Medications 07/10: Humalog 3U, Levothyroxine, others nutritionally unremarkable. Height 5 ft 4 in Weight 139.6 kg [place] Body Weight (kg) 54.54 BMI 52.8 Weight change and time frame No body weight change reported in 12 days. Weight Status Morbidly Obese Subjective/Other Information RD consult for write/manage TF assessment. Formula has to change, Pt extubated on 07/09. Pt on Nasal Cannula, O2 saturation @ 94%, according to Physical Assessment History notes. DIESEL CRANE OPERATOR note on 07/10/22 11:37: Swallowing function has been assessed. Patient is at profound risk for PO. Recommend NPO and no water or icechips. Will continue to follow. Informed the patient's nurse. - END OF NOTE. Percent of energy/protein needs met: Prescribed TF-Glucerna 1.2 Prabhjot @ 55 ml/hr provides for energy/protein needs (1,570 Kcal/79 g) during LOS, 102% Kcal; 100% AA. Burn Absent Trauma Absent GI Symptoms None Difficulty In Swallowing Food Allergy No Skin Integrity/Comment Bilateral LE redness/echimosis . 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 DIESEL CRANE OPERATOR note on 07/10/22 11:37: Swallowing function has been assessed. Patient is at profound risk for PO. Recommend NPO and no water or icechips. Will continue to follow. Informed the patient's nurse. - END OF NOTE. Diagnosis Progress(for reassessment Continues documentation) #1 Nutrition Diagnosis Overweight/obesity Diagnosis Progress(for reassessment Continues documentation) Is patient on ventilator? No Is Patient Ambulatory and/or Out of Bed No REE-([facility]-confined to bed) 2392.512 Kcal/Kg value to use for calculation 11 Approximate Energy Requirements Using 1536 kcal/Kg Calculation Used for Recommendations Kcal/kg Additional Notes Protein: 0.8-1.2 g/Kg AdjBW; 77-115 g/day. Fluids: 1 ml/Kcal, or as per MD. Nutrition Intervention Nutrition Support: Change formula to TF-Glucerna 1.2 Prabhjot @ 55 ml/hr. Start with Trickle feed per MD . Flush: 80 ml water Q4 hr, or as per MD. Kcal 1,570 Protein (gm) 79 Carbohydrates (gm) 150 Fat (gm) 79 Fluid (mL) 1,053 Fiber (gm) 21 % RDI: 102% Kcal; 100% AA. Goal #1 Provide at least 75% of energy /protein needs through Enteral Feeding during LOS. Goal #2 Adjust the dietary intervention to better serve Pt's energy/protein needs and clinical conditions during LOS . Follow-Up By: 07/13/22 Additional Comments Continue monitoring TF tolerance, DIESEL CRANE OPERATOR recommendations , TF rate adjustments, and BM.
--- NOTE | 2022-07-12 11:47 | Progress Note ---
Assessment and Plan Diabetic ketoacidosis Hyperkalemia COPD Possible JACKLYN / OHS Possible cellulitis Possible peripheral vascular disease STEFFANIE Morbid obesity HTN Tobacco use disorder Leukocytosis High anion gap metabolic acidosis Elevated serum BNP - will transfer to step down unit but continue to watch closely - continue HFNC @ 40 Liter flow - keep HOB >/= 40 degrees - continue BIPAP qhs with prn daytime use - continue care as below otherwise; - care home anticoagulation per vascular team recommendations (Eliquis) - follow clinically off AB's (Procalcitonin unremarkable) - continue accuchecks with glycemic control per SSI (While critically ill target blood glucose of 140-180 mg/dL; avoid hypoglycemia) - continue to avoid nephrotoxins, renally dose all medications - continue to wean supplemental oxygen for target O2 sat's > 90% acutely - aspiration precautions - prn bronchodilators (YESSI) with pulmonary hygiene per RT - prn analgesia per pain score - Maintenance of sleep-wake cycle, avoid delirium - tobacco abstinence strongly counseled - G.I. & VTE prophylaxis - PT/OT/ROM exercises - mobility protocols for pressure ulcer prophylaxis - Monitor hemodynamics closely - continue other care per attending / other consultants - discharge planning ongoing concurrently .... Re-evaluate in am & prn CONDITION: CRITICAL PROGNOSIS: GUARDED CODE STATUS: FULL CODE The high probability of a clinically significant, sudden or life-threatening deterioration of the [respiratory, cardiovascular, hematologic & neurologic] system(s) required my full and direct attention, intervention and personal management. The aggregate critical care time was [33] minutes without overlap. Time includes spent on; [x] Data Review and interpretation [x] Patient assessment and monitoring of vital signs [x] Documentation [x] Medication orders and management Subjective Date of service: 07/12/22 Principal diagnosis: AHRF; DKA; Hyperkalemia; COPD; ? cellulitis; PVD; STEFFANIE; Morbid obesity; ?JACKLYN Interval history: Patient is seen today for: Acute hypoxemic respiratory failure; DKA; Hyperkalemia; COPD; Possible cellulitis; PVD; STEFFANIE; Morbid obesity Seen and examined at bedside; 24hour events reviewed; nursing and respiratory care staff consulted; no adverse overnight events reported to me; resting peacefully in bed; remains on HFNC @ 50% FiO2 but with room to wean; denies chest pains; + chronic back pain; denies hemoptysis; No N/V/F/C Objective Vital Signs - 12hr 07/12/22 07/12/22 07/12/22 00:00 01:00 01:02 Temperature Pulse Rate 72 70 72 Pulse Rate [ Anterior Throughout] Pulse Rate [ 68 From Monitor] Pulse Rate [ 68 Left Dorsalis Pedis] Pulse Rate [ 68 Right Dorsalis Pedis] Respiratory 26 H 22 24 Rate Respiratory Rate [Anterior Throughout] Blood Pressure 121/59 128/62 120/59 O2 Sat by Pulse 98 97 97 Oximetry 07/12/22 07/12/22 07/12/22 01:59 02:00 03:00 Temperature Pulse Rate 61 62 Pulse Rate [ 65 Anterior Throughout] Pulse Rate [ From Monitor] Pulse Rate [ Left Dorsalis Pedis] Pulse Rate [ Right Dorsalis Pedis] Respiratory 24 15 Rate Respiratory 24 Rate [Anterior Throughout] Blood Pressure 126/62 112/59 O2 Sat by Pulse 98 98 97 Oximetry 07/12/22 07/12/22 07/12/22 04:00 05:00 05:32 Temperature Pulse Rate 59 L 60 60 Pulse Rate [ Anterior Throughout] Pulse Rate [ 59 L From Monitor] Pulse Rate [ 59 L Left Dorsalis Pedis] Pulse Rate [ 59 L Right Dorsalis Pedis] Respiratory 16 17 21 Rate Respiratory Rate [Anterior Throughout] Blood Pressure 120/60 119/61 118/57 O2 Sat by Pulse 98 98 99 Oximetry 07/12/22 07/12/22 07/12/22 06:00 07:00 07:58 Temperature Pulse Rate 63 58 L Pulse Rate [ Anterior Throughout] Pulse Rate [ From Monitor] Pulse Rate [ Left Dorsalis Pedis] Pulse Rate [ Right Dorsalis Pedis] Respiratory 26 H 17 Rate Respiratory Rate [Anterior Throughout] Blood Pressure 130/61 123/60 O2 Sat by Pulse 98 97 95 Oximetry 07/12/22 07/12/22 07/12/22 08:00 08:01 08:10 Temperature Pulse Rate 62 67 Pulse Rate [ 67 Anterior Throughout] Pulse Rate [ From Monitor] Pulse Rate [ Left Dorsalis Pedis] Pulse Rate [ Right Dorsalis Pedis] Respiratory 30 H 9 L Rate Respiratory 18 Rate [Anterior Throughout] Blood Pressure 156/54 156/54 O2 Sat by Pulse 95 95 Oximetry 07/12/22 07/12/22 07/12/22 08:39 08:56 08:58 Temperature 97.6 F Pulse Rate 70 Pulse Rate [ Anterior Throughout] Pulse Rate [ 67 From Monitor] Pulse Rate [ Left Dorsalis Pedis] Pulse Rate [ Right Dorsalis Pedis] Respiratory 15 Rate Respiratory Rate [Anterior Throughout] Blood Pressure O2 Sat by Pulse 95 Oximetry 07/12/22 07/12/22 09:00 10:00 Temperature Pulse Rate 73 68 Pulse Rate [ Anterior Throughout] Pulse Rate [ From Monitor] Pulse Rate [ Left Dorsalis Pedis] Pulse Rate [ Right Dorsalis Pedis] Respiratory 28 H 25 H Rate Respiratory Rate [Anterior Throughout] Blood Pressure 142/46 136/65 O2 Sat by Pulse 97 96 Oximetry Constitutional: no acute distress, other (middle aged morbidly obese female with mildly increased respiratory effort at rest) Eyes: non-icteric ENT: oropharynx moist Neck: supple, no lymphadenopathy, no JVD, other (large circumference) Effort: mildly labored Ascultation: Bilateral: diminished breath sounds, rhonchi, other (referred upper airway sounds) Percussion: Bilateral: not dull Cardiovascular: regular rate and rhythm Gastrointestinal: normoactive bowel sounds, non-tender, non-distended Integumentary: rash (shins), other (erythema to shins) Extremities: no cyanosis, pink and warm, no ischemia or petechiae, edema (trace) Neurologic: normal mental status, non-focal exam (grossly), pupils equal and rou nd, motor strength normal and Psychiatric: mood appropriate, affect normal CBC and BMP: 07/12/22 04:18 07/12/22 04:18 ABG, PT/INR, D-dimer: ABG ABG pH 7.352 pH Units (7.350-7.450) 07/09/22 11:35 ABG pCO2 57.9 mm Hg 07/09/22 11:35 ABG pO2 74.0 mm Hg (80.0-90.0) L 07/09/22 11:35 ABG O2 Saturation 95.2 % (95.0-99.0) 07/09/22 11:35 PT/INR, D-dimer PT 17.3 Sec. (12.2-14.9) H 07/02/22 20:28 INR 1.26 (0.87-1.13) H 07/02/22 20:28 Abnormal lab findings: Abnormal Labs 06/27/22 06/27/2222 20:48 20:48 23:56 WBC 18.7 H RBC Hgb 15.1 H Hct 47.1 H Plt Count Lymph % (Auto) 6.3 L [place] % (Auto) Lymph # (Auto) [place] # (Auto) 0.9 H Seg Neutrophils % 88.6 H Seg Neuts % (Manual) Lymphocytes % (Manual) Seg Neutrophils # 16.5 H Seg Neutrophils # Man Lymphocytes # (Manual) PT INR APTT Heparin Anti-Xa Level ABG pH ABG pO2 ABG HCO3 ABG O2 Saturation ABG Base Excess ABG Hemoglobin Oxyhemoglobin Sodium 123 L 121 L Potassium 6.9 H* 6.4 H* Chloride 82.4 L 79.7 L Carbon Dioxide 7 L* 8 L* BUN 50 H 54 H Creatinine 2.2 H 2.5 H Glucose 578 H* 562 H* POC Glucose Hemoglobin A1c Calcium Phosphorus 10.40 H Magnesium 2.70 H 2.60 H AST 50 H Troponin T 0.080 H NT-Pro-B Natriuret Pep 4137 H Total Protein Albumin 3.1 L Triglycerides 349 H LDL Cholesterol Direct 37 L HDL Cholesterol 38 L PTH Intact Urine Creatinine Urine Total Protein 06/28/22 06/28/22 06/28/22 01:45 03:17 03:35 WBC RBC Hgb Hct Plt Count Lymph % (Auto) [place] % (Auto) Lymph # (Auto) [place] # (Auto) Seg Neutrophils % Seg Neuts % (Manual) Lymphocytes % (Manual) Seg Neutrophils # Seg Neutrophils # Man Lymphocytes # (Manual) PT INR APTT Heparin Anti-Xa Level ABG pH ABG pO2 ABG HCO3 ABG O2 Saturation ABG Base Excess ABG Hemoglobin Oxyhemoglobin Sodium 120 L 121 L Potassium 6.2 H* 5.4 H Chloride 79.1 L 84.7 L Carbon Dioxide 7 L* 7 L* BUN 55 H 57 H Creatinine 2.6 H 2.6 H Glucose 551 H* 486 H POC Glucose 568 H Hemoglobin A1c Calcium 8.1 L 7.7 L Phosphorus Magnesium AST Troponin T NT-Pro-B Natriuret Pep Total Protein Albumin Triglycerides LDL Cholesterol Direct HDL Cholesterol PTH Intact Urine Creatinine Urine Total Protein 06/28/22 06/28/22 06/28/22 03:35 04:05 05:13 WBC RBC Hgb Hct Plt Count Lymph % (Auto) [place] % (Auto) Lymph # (Auto) [place] # (Auto) Seg Neutrophils % Seg Neuts % (Manual) Lymphocytes % (Manual) Seg Neutrophils # Seg Neutrophils # Man Lymphocytes # (Manual) PT INR APTT Heparin Anti-Xa Level ABG pH ABG pO2 ABG HCO3 ABG O2 Saturation ABG Base Excess ABG Hemoglobin Oxyhemoglobin Sodium Potassium Chloride Carbon Dioxide BUN Creatinine Glucose POC Glucose 508 H 443 H Hemoglobin A1c Calcium Phosphorus 9.20 H Magnesium AST Troponin T NT-Pro-B Natriuret Pep Total Protein Albumin Triglycerides LDL Cholesterol Direct HDL Cholesterol PTH Intact Urine Creatinine Urine Total Protein 06/28/22 06/28/22 06/28/22 05:40 06:30 07:39 WBC RBC Hgb Hct Plt Count Lymph % (Auto) [place] % (Auto) Lymph # (Auto) [place] # (Auto) Seg Neutrophils % Seg Neuts % (Manual) Lymphocytes % (Manual) Seg Neutrophils # Seg Neutrophils # Man Lymphocytes # (Manual) PT INR APTT Heparin Anti-Xa Level ABG pH ABG pO2 ABG HCO3 ABG O2 Saturation ABG Base Excess ABG Hemoglobin Oxyhemoglobin Sodium 124 L Potassium 5.1 H Chloride 86.5 L Carbon Dioxide 13 L BUN 59 H Creatinine 2.6 H Glucose 396 H POC Glucose 419 H 377 H Hemoglobin A1c Calcium 8.0 L Phosphorus Magnesium AST Troponin T NT-Pro-B Natriuret Pep Total Protein Albumin Triglycerides LDL Cholesterol Direct HDL Cholesterol PTH Intact Urine Creatinine Urine Total Protein 06/28/22 06/28/22 06/28/22 08:10 08:18 09:32 WBC RBC Hgb Hct Plt Count Lymph % (Auto) [place] % (Auto) Lymph # (Auto) [place] # (Auto) Seg Neutrophils % Seg Neuts % (Manual) Lymphocytes % (Manual) Seg Neutrophils # Seg Neutrophils # Man Lymphocytes # (Manual) PT INR APTT Heparin Anti-Xa Level ABG pH ABG pO2 ABG HCO3 ABG O2 Saturation ABG Base Excess ABG Hemoglobin Oxyhemoglobin Sodium Potassium Chloride Carbon Dioxide BUN Creatinine Glucose POC Glucose 390 H 347 H Hemoglobin A1c Calcium Phosphorus Magnesium AST Troponin T NT-Pro-B Natriuret Pep Total Protein Albumin Triglycerides LDL Cholesterol Direct HDL Cholesterol PTH Intact Urine Creatinine 85.4 H Urine Total Protein 49 H 06/28/22 06/28/22 06/28/22 10:46 11:40 12:40 WBC RBC Hgb Hct Plt Count Lymph % (Auto) [place] % (Auto) Lymph # (Auto) [place] # (Auto) Seg Neutrophils % Seg Neuts % (Manual) Lymphocytes % (Manual) Seg Neutrophils # Seg Neutrophils # Man Lymphocytes # (Manual) PT INR APTT Heparin Anti-Xa Level ABG pH ABG pO2 ABG HCO3 ABG O2 Saturation ABG Base Excess ABG Hemoglobin Oxyhemoglobin Sodium Potassium Chloride Carbon Dioxide BUN Creatinine Glucose POC Glucose 313 H 274 H 258 H Hemoglobin A1c Calcium Phosphorus Magnesium AST Troponin T NT-Pro-B Natriuret Pep Total Protein Albumin Triglycerides LDL Cholesterol Direct HDL Cholesterol PTH Intact Urine Creatinine Urine Total Protein 06/28/22 06/28/22 06/28/22 13:38 14:13 14:13 WBC 19.7 H RBC 5.33 H Hgb 16.2 H Hct 49.4 H Plt Count Lymph % (Auto) [place] % (Auto) Lymph # (Auto) [place] # (Auto) Seg Neutrophils % Seg Neuts % (Manual) Lymphocytes % (Manual) Seg Neutrophils # Seg Neutrophils # Man Lymphocytes # (Manual) PT INR APTT Heparin Anti-Xa Level ABG pH ABG pO2 ABG HCO3 ABG O2 Saturation ABG Base Excess ABG Hemoglobin Oxyhemoglobin Sodium 125 L Potassium 5.4 H Chloride 87.6 L Carbon Dioxide 18 L BUN 58 H Creatinine 2.5 H Glucose 199 H POC Glucose 205 H Hemoglobin A1c Calcium Phosphorus 6.90 H D Magnesium AST Troponin T NT-Pro-B Natriuret Pep Total Protein Albumin Triglycerides LDL Cholesterol Direct HDL Cholesterol PTH Intact Urine Creatinine Urine Total Protein 06/28/22 06/28/22 06/28/22 14:56 15:07 15:07 WBC RBC Hgb 15.5 H Hct 46.8 H Plt Count Lymph % (Auto) [place] % (Auto) Lymph # (Auto) [place] # (Auto) Seg Neutrophils % Seg Neuts % (Manual) Lymphocytes % (Manual) Seg Neutrophils # Seg Neutrophils # Man Lymphocytes # (Manual) PT INR APTT Heparin Anti-Xa Level ABG pH ABG pO2 ABG HCO3 ABG O2 Saturation ABG Base Excess ABG Hemoglobin Oxyhemoglobin Sodium 128 L Potassium 5.3 H Chloride 94.0 L Carbon Dioxide 14 L BUN 59 H Creatinine 2.4 H Glucose 183 H POC Glucose 194 H Hemoglobin A1c Calcium 7.8 L Phosphorus Magnesium AST Troponin T NT-Pro-B Natriuret Pep Total Protein Albumin Triglycerides LDL Cholesterol Direct HDL Cholesterol PTH Intact Urine Creatinine Urine Total Protein 06/28/22 06/28/22 06/28/22 15:07 15:54 17:10 WBC RBC Hgb Hct Plt Count Lymph % (Auto) [place] % (Auto) Lymph # (Auto) [place] # (Auto) Seg Neutrophils % Seg Neuts % (Manual) Lymphocytes % (Manual) Seg Neutrophils # Seg Neutrophils # Man Lymphocytes # (Manual) PT 19.6 H INR 1.47 H APTT Heparin Anti-Xa Level ABG pH ABG pO2 ABG HCO3 ABG O2 Saturation ABG Base Excess ABG Hemoglobin Oxyhemoglobin Sodium Potassium Chloride Carbon Dioxide BUN Creatinine Glucose POC Glucose 189 H 216 H Hemoglobin A1c Calcium Phosphorus Magnesium AST Troponin T NT-Pro-B Natriuret Pep Total Protein Albumin Triglycerides LDL Cholesterol Direct HDL Cholesterol PTH Intact Urine Creatinine Urine Total Protein 06/28/22 06/28/22 06/28/22 17:59 18:54 19:49 WBC RBC Hgb Hct Plt Count Lymph % (Auto) [place] % (Auto) Lymph # (Auto) [place] # (Auto) Seg Neutrophils % Seg Neuts % (Manual) Lymphocytes % (Manual) Seg Neutrophils # Seg Neutrophils # Man Lymphocytes # (Manual) PT INR APTT Heparin Anti-Xa Level ABG pH ABG pO2 ABG HCO3 ABG O2 Saturation ABG Base Excess ABG Hemoglobin Oxyhemoglobin Sodium Potassium Chloride Carbon Dioxide BUN Creatinine Glucose POC Glucose 195 H 178 H 166 H Hemoglobin A1c Calcium Phosphorus Magnesium AST Troponin T NT-Pro-B Natriuret Pep Total Protein Albumin Triglycerides LDL Cholesterol Direct HDL Cholesterol PTH Intact Urine Creatinine Urine Total Protein 06/28/22 06/28/22 06/28/22 20:31 20:31 20:31 WBC RBC Hgb Hct Plt Count Lymph % (Auto) [place] % (Auto) Lymph # (Auto) [place] # (Auto) Seg Neutrophils % Seg Neuts % (Manual) Lymphocytes % (Manual) Seg Neutrophils # Seg Neutrophils # Man Lymphocytes # (Manual) PT INR APTT Heparin Anti-Xa Level 0.19 L ABG pH ABG pO2 ABG HCO3 ABG O2 Saturation ABG Base Excess ABG Hemoglobin Oxyhemoglobin Sodium 129 L Potassium 5.1 H Chloride 95.6 L Carbon Dioxide 15 L BUN 59 H Creatinine 2.4 H Glucose 145 H POC Glucose Hemoglobin A1c 9.7 H Calcium 8.0 L Phosphorus 6.40 H Magnesium AST Troponin T NT-Pro-B Natriuret Pep Total Protein Albumin Triglycerides LDL Cholesterol Direct HDL Cholesterol PTH Intact Urine Creatinine Urine Total Protein 06/28/22 06/28/22 06/28/22 21:27 22:22 23:36 WBC RBC Hgb Hct Plt Count Lymph % (Auto) [place] % (Auto) Lymph # (Auto) [place] # (Auto) Seg Neutrophils % Seg Neuts % (Manual) Lymphocytes % (Manual) Seg Neutrophils # Seg Neutrophils # Man Lymphocytes # (Manual) PT INR APTT Heparin Anti-Xa Level ABG pH ABG pO2 ABG HCO3 ABG O2 Saturation ABG Base Excess ABG Hemoglobin Oxyhemoglobin Sodium Potassium Chloride Carbon Dioxide BUN Creatinine Glucose POC Glucose 131 H 148 H 146 H Hemoglobin A1c Calcium Phosphorus Magnesium AST Troponin T NT-Pro-B Natriuret Pep Total Protein Albumin Triglycerides LDL Cholesterol Direct HDL Cholesterol PTH Intact Urine Creatinine Urine Total Protein 06/29/22 06/29/22 06/29/22 00:21 01:27 02:54 WBC RBC Hgb Hct Plt Count Lymph % (Auto) [place] % (Auto) Lymph # (Auto) [place] # (Auto) Seg Neutrophils % Seg Neuts % (Manual) Lymphocytes % (Manual) Seg Neutrophils # Seg Neutrophils # Man Lymphocytes # (Manual) PT INR APTT Heparin Anti-Xa Level ABG pH ABG pO2 ABG HCO3 ABG O2 Saturation ABG Base Excess ABG Hemoglobin Oxyhemoglobin Sodium Potassium Chloride Carbon Dioxide BUN Creatinine Glucose POC Glucose 149 H 172 H 172 H Hemoglobin A1c Calcium Phosphorus Magnesium AST Troponin T NT-Pro-B Natriuret Pep Total Protein Albumin Triglycerides LDL Cholesterol Direct HDL Cholesterol PTH Intact Urine Creatinine Urine Total Protein 06/29/22 06/29/22 06/29/22 04:05 04:21 04:21 WBC 17.1 H RBC Hgb 14.6 H Hct 43.9 H Plt Count Lymph % (Auto) [place] % (Auto) Lymph # (Auto) [place] # (Auto) Seg Neutrophils % Seg Neuts % (Manual) Lymphocytes % (Manual) Seg Neutrophils # Seg Neutrophils # Man Lymphocytes # (Manual) PT INR APTT Heparin Anti-Xa Level ABG pH ABG pO2 ABG HCO3 ABG O2 Saturation ABG Base Excess ABG Hemoglobin Oxyhemoglobin Sodium 129 L Potassium Chloride 97.6 L Carbon Dioxide 15 L BUN 59 H Creatinine 2.1 H Glucose 140 H POC Glucose 167 H Hemoglobin A1c Calcium 8.0 L Phosphorus Magnesium AST Troponin T NT-Pro-B Natriuret Pep Total Protein Albumin Triglycerides LDL Cholesterol Direct HDL Cholesterol PTH Intact Urine Creatinine Urine Total Protein 06/29/22 06/29/22 06/29/22 04:21 06:27 07:31 WBC RBC Hgb Hct Plt Count Lymph % (Auto) [place] % (Auto) Lymph # (Auto) [place] # (Auto) Seg Neutrophils % Seg Neuts % (Manual) Lymphocytes % (Manual) Seg Neutrophils # Seg Neutrophils # Man Lymphocytes # (Manual) PT INR APTT Heparin Anti-Xa Level ABG pH ABG pO2 ABG HCO3 ABG O2 Saturation ABG Base Excess ABG Hemoglobin Oxyhemoglobin Sodium Potassium Chloride Carbon Dioxide BUN Creatinine Glucose POC Glucose 138 H 142 H Hemoglobin A1c Calcium Phosphorus Magnesium AST Troponin T NT-Pro-B Natriuret Pep Total Protein Albumin Triglycerides LDL Cholesterol Direct HDL Cholesterol PTH Intact 382.4 H Urine Creatinine Urine Total Protein 06/29/22 06/29/22 06/29/22 08:33 09:28 10:35 WBC RBC Hgb Hct Plt Count Lymph % (Auto) [place] % (Auto) Lymph # (Auto) [place] # (Auto) Seg Neutrophils % Seg Neuts % (Manual) Lymphocytes % (Manual) Seg Neutrophils # Seg Neutrophils # Man Lymphocytes # (Manual) PT INR APTT Heparin Anti-Xa Level ABG pH ABG pO2 ABG HCO3 ABG O2 Saturation ABG Base Excess ABG Hemoglobin Oxyhemoglobin Sodium Potassium Chloride Carbon Dioxide BUN Creatinine Glucose POC Glucose 141 H 167 H 152 H Hemoglobin A1c Calcium Phosphorus Magnesium AST Troponin T NT-Pro-B Natriuret Pep Total Protein Albumin Triglycerides LDL Cholesterol Direct HDL Cholesterol PTH Intact Urine Creatinine Urine Total Protein 06/29/22 06/29/22 06/29/22 10:47 11:30 12:33 WBC RBC Hgb Hct Plt Count Lymph % (Auto) [place] % (Auto) Lymph # (Auto) [place] # (Auto) Seg Neutrophils % Seg Neuts % (Manual) Lymphocytes % (Manual) Seg Neutrophils # Seg Neutrophils # Man Lymphocytes # (Manual) PT INR APTT Heparin Anti-Xa Level ABG pH ABG pO2 ABG HCO3 ABG O2 Saturation ABG Base Excess ABG Hemoglobin Oxyhemoglobin Sodium 131 L Potassium Chloride 94.4 L Carbon Dioxide 15 L BUN 59 H Creatinine 2.2 H Glucose 149 H POC Glucose 134 H 146 H Hemoglobin A1c Calcium Phosphorus 5.80 H Magnesium AST Troponin T NT-Pro-B Natriuret Pep Total Protein Albumin Triglycerides LDL Cholesterol Direct HDL Cholesterol PTH Intact Urine Creatinine Urine Total Protein 06/29/22 06/29/22 06/29/22 13:28 14:33 15:49 WBC RBC Hgb Hct Plt Count Lymph % (Auto) [place] % (Auto) Lymph # (Auto) [place] # (Auto) Seg Neutrophils % Seg Neuts % (Manual) Lymphocytes % (Manual) Seg Neutrophils # Seg Neutrophils # Man Lymphocytes # (Manual) PT INR APTT Heparin Anti-Xa Level ABG pH ABG pO2 ABG HCO3 ABG O2 Saturation ABG Base Excess ABG Hemoglobin Oxyhemoglobin Sodium Potassium Chloride Carbon Dioxide BUN Creatinine Glucose POC Glucose 170 H 188 H 155 H Hemoglobin A1c Calcium Phosphorus Magnesium AST Troponin T NT-Pro-B Natriuret Pep Total Protein Albumin Triglycerides LDL Cholesterol Direct HDL Cholesterol PTH Intact Urine Creatinine Urine Total Protein 06/29/22 06/29/22 06/29/22 16:14 16:14 16:45 WBC RBC Hgb Hct Plt Count Lymph % (Auto) [place] % (Auto) Lymph # (Auto) [place] # (Auto) Seg Neutrophils % Seg Neuts % (Manual) Lymphocytes % (Manual) Seg Neutrophils # Seg Neutrophils # Man Lymphocytes # (Manual) PT INR APTT Heparin Anti-Xa Level 0.19 L ABG pH ABG pO2 ABG HCO3 ABG O2 Saturation ABG Base Excess ABG Hemoglobin Oxyhemoglobin Sodium 128 L Potassium Chloride 95.8 L Carbon Dioxide 15 L BUN 52 H Creatinine 1.8 H Glucose 138 H POC Glucose 135 H Hemoglobin A1c Calcium 7.9 L Phosphorus Magnesium AST Troponin T NT-Pro-B Natriuret Pep Total Protein Albumin Triglycerides LDL Cholesterol Direct HDL Cholesterol PTH Intact Urine Creatinine Urine Total Protein 06/29/22 06/29/22 06/29/22 17:47 18:52 20:14 WBC RBC Hgb Hct Plt Count Lymph % (Auto) [place] % (Auto) Lymph # (Auto) [place] # (Auto) Seg Neutrophils % Seg Neuts % (Manual) Lymphocytes % (Manual) Seg Neutrophils # Seg Neutrophils # Man Lymphocytes # (Manual) PT INR APTT Heparin Anti-Xa Level ABG pH ABG pO2 ABG HCO3 ABG O2 Saturation ABG Base Excess ABG Hemoglobin Oxyhemoglobin Sodium Potassium Chloride Carbon Dioxide BUN Creatinine Glucose POC Glucose 150 H 123 H 155 H Hemoglobin A1c Calcium Phosphorus Magnesium AST Troponin T NT-Pro-B Natriuret Pep Total Protein Albumin Triglycerides LDL Cholesterol Direct HDL Cholesterol PTH Intact Urine Creatinine Urine Total Protein 06/29/22 06/29/22 06/29/22 20:17 21:11 21:53 WBC RBC Hgb Hct Plt Count Lymph % (Auto) [place] % (Auto) Lymph # (Auto) [place] # (Auto) Seg Neutrophils % Seg Neuts % (Manual) Lymphocytes % (Manual) Seg Neutrophils # Seg Neutrophils # Man Lymphocytes # (Manual) PT INR APTT Heparin Anti-Xa Level ABG pH ABG pO2 ABG HCO3 ABG O2 Saturation ABG Base Excess ABG Hemoglobin Oxyhemoglobin Sodium 131 L Potassium 5.5 H D Chloride Carbon Dioxide 15 L BUN 56 H Creatinine 2.0 H Glucose 146 H POC Glucose 152 H 165 H Hemoglobin A1c Calcium Phosphorus 5.20 H Magnesium AST Troponin T NT-Pro-B Natriuret Pep Total Protein Albumin Triglycerides LDL Cholesterol Direct HDL Cholesterol PTH Intact Urine Creatinine Urine Total Protein 06/29/22 06/30/22 06/30/22 23:07 00:18 00:58 WBC RBC Hgb Hct Plt Count Lymph % (Auto) [place] % (Auto) Lymph # (Auto) [place] # (Auto) Seg Neutrophils % Seg Neuts % (Manual) Lymphocytes % (Manual) Seg Neutrophils # Seg Neutrophils # Man Lymphocytes # (Manual) PT INR APTT Heparin Anti-Xa Level ABG pH ABG pO2 ABG HCO3 ABG O2 Saturation ABG Base Excess ABG Hemoglobin Oxyhemoglobin Sodium Potassium Chloride Carbon Dioxide BUN Creatinine Glucose POC Glucose 163 H 178 H 189 H Hemoglobin A1c Calcium Phosphorus Magnesium AST Troponin T NT-Pro-B Natriuret Pep Total Protein Albumin Triglycerides LDL Cholesterol Direct HDL Cholesterol PTH Intact Urine Creatinine Urine Total Protein 06/30/22 06/30/22 06/30/22 01:57 02:59 03:53 WBC RBC Hgb Hct Plt Count Lymph % (Auto) [place] % (Auto) Lymph # (Auto) [place] # (Auto) Seg Neutrophils % Seg Neuts % (Manual) Lymphocytes % (Manual) Seg Neutrophils # Seg Neutrophils # Man Lymphocytes # (Manual) PT INR APTT Heparin Anti-Xa Level ABG pH ABG pO2 ABG HCO3 ABG O2 Saturation ABG Base Excess ABG Hemoglobin Oxyhemoglobin Sodium Potassium Chloride Carbon Dioxide BUN Creatinine Glucose POC Glucose 150 H 147 H 122 H Hemoglobin A1c Calcium Phosphorus Magnesium AST Troponin T NT-Pro-B Natriuret Pep Total Protein Albumin Triglycerides LDL Cholesterol Direct HDL Cholesterol PTH Intact Urine Creatinine Urine Total Protein 06/30/22 06/30/22 06/30/22 04:56 05:25 05:52 WBC RBC Hgb Hct Plt Count Lymph % (Auto) [place] % (Auto) Lymph # (Auto) [place] # (Auto) Seg Neutrophils % Seg Neuts % (Manual) Lymphocytes % (Manual) Seg Neutrophils # Seg Neutrophils # Man Lymphocytes # (Manual) PT INR APTT Heparin Anti-Xa Level ABG pH ABG pO2 ABG HCO3 ABG O2 Saturation ABG Base Excess ABG Hemoglobin Oxyhemoglobin Sodium 132 L Potassium Chloride Carbon Dioxide 15 L BUN 53 H Creatinine 1.7 H Glucose 137 H POC Glucose 110 H 150 H Hemoglobin A1c Calcium Phosphorus Magnesium AST Troponin T NT-Pro-B Natriuret Pep Total Protein Albumin Triglycerides LDL Cholesterol Direct HDL Cholesterol PTH Intact Urine Creatinine Urine Total Protein 06/30/22 06/30/22 06/30/22 07:25 08:20 09:20 WBC RBC Hgb Hct Plt Count Lymph % (Auto) [place] % (Auto) Lymph # (Auto) [place] # (Auto) Seg Neutrophils % Seg Neuts % (Manual) Lymphocytes % (Manual) Seg Neutrophils # Seg Neutrophils # Man Lymphocytes # (Manual) PT INR APTT Heparin Anti-Xa Level ABG pH ABG pO2 ABG HCO3 ABG O2 Saturation ABG Base Excess ABG Hemoglobin Oxyhemoglobin Sodium Potassium Chloride Carbon Dioxide BUN Creatinine Glucose POC Glucose 133 H 119 H 128 H Hemoglobin A1c Calcium Phosphorus Magnesium AST Troponin T NT-Pro-B Natriuret Pep Total Protein Albumin Triglycerides LDL Cholesterol Direct HDL Cholesterol PTH Intact Urine Creatinine Urine Total Protein 06/30/22 06/30/22 06/30/22 10:21 10:59 11:25 WBC RBC Hgb Hct Plt Count Lymph % (Auto) [place] % (Auto) Lymph # (Auto) [place] # (Auto) Seg Neutrophils % Seg Neuts % (Manual) Lymphocytes % (Manual) Seg Neutrophils # Seg Neutrophils # Man Lymphocytes # (Manual) PT INR APTT Heparin Anti-Xa Level ABG pH ABG pO2 ABG HCO3 ABG O2 Saturation ABG Base Excess ABG Hemoglobin Oxyhemoglobin Sodium 132 L Potassium Chloride Carbon Dioxide 16 L BUN 49 H Creatinine 1.7 H Glucose 168 H POC Glucose 133 H 232 H Hemoglobin A1c Calcium 8.1 L Phosphorus Magnesium AST Troponin T NT-Pro-B Natriuret Pep Total Protein Albumin Triglycerides LDL Cholesterol Direct HDL Cholesterol PTH Intact Urine Creatinine Urine Total Protein 06/30/22 06/30/22 07/01/22 16:15 21:30 05:10 WBC RBC Hgb Hct Plt Count Lymph % (Auto) [place] % (Auto) Lymph # (Auto) [place] # (Auto) Seg Neutrophils % Seg Neuts % (Manual) Lymphocytes % (Manual) Seg Neutrophils # Seg Neutrophils # Man Lymphocytes # (Manual) PT INR APTT Heparin Anti-Xa Level 0.24 L ABG pH ABG pO2 ABG HCO3 ABG O2 Saturation ABG Base Excess ABG Hemoglobin Oxyhemoglobin Sodium Potassium Chloride Carbon Dioxide BUN Creatinine Glucose POC Glucose 325 H 279 H Hemoglobin A1c Calcium Phosphorus Magnesium AST Troponin T NT-Pro-B Natriuret Pep Total Protein Albumin Triglycerides LDL Cholesterol Direct HDL Cholesterol PTH Intact Urine Creatinine Urine Total Protein 07/01/22 07/01/22 07/01/22 05:10 07:38 09:13 WBC RBC Hgb Hct Plt Count Lymph % (Auto) [place] % (Auto) Lymph # (Auto) [place] # (Auto) Seg Neutrophils % Seg Neuts % (Manual) Lymphocytes % (Manual) Seg Neutrophils # Seg Neutrophils # Man Lymphocytes # (Manual) PT 15.9 H INR 1.14 H APTT Heparin Anti-Xa Level ABG pH ABG pO2 ABG HCO3 ABG O2 Saturation ABG Base Excess ABG Hemoglobin Oxyhemoglobin Sodium 132 L Potassium Chloride 97.8 L Carbon Dioxide 19 L BUN 34 H Creatinine 1.3 H Glucose 250 H POC Glucose 235 H Hemoglobin A1c Calcium Phosphorus Magnesium AST Troponin T NT-Pro-B Natriuret Pep Total Protein Albumin Triglycerides LDL Cholesterol Direct HDL Cholesterol PTH Intact Urine Creatinine Urine Total Protein 07/01/22 07/01/22 07/01/22 12:03 13:42 16:32 WBC RBC Hgb Hct Plt Count Lymph % (Auto) [place] % (Auto) Lymph # (Auto) [place] # (Auto) Seg Neutrophils % Seg Neuts % (Manual) Lymphocytes % (Manual) Seg Neutrophils # Seg Neutrophils # Man Lymphocytes # (Manual) PT INR APTT Heparin Anti-Xa Level 0.25 L ABG pH ABG pO2 ABG HCO3 ABG O2 Saturation ABG Base Excess ABG Hemoglobin Oxyhemoglobin Sodium Potassium Chloride Carbon Dioxide BUN Creatinine Glucose POC Glucose 272 H 316 H Hemoglobin A1c Calcium Phosphorus Magnesium AST Troponin T NT-Pro-B Natriuret Pep Total Protein Albumin Triglycerides LDL Cholesterol Direct HDL Cholesterol PTH Intact Urine Creatinine Urine Total Protein 07/01/22 07/01/22 07/02/22 21:21 23:14 07:41 WBC RBC Hgb Hct Plt Count Lymph % (Auto) [place] % (Auto) Lymph # (Auto) [place] # (Auto) Seg Neutrophils % Seg Neuts % (Manual) Lymphocytes % (Manual) Seg Neutrophils # Seg Neutrophils # Man Lymphocytes # (Manual) PT INR APTT Heparin Anti-Xa Level 0.27 L ABG pH ABG pO2 ABG HCO3 ABG O2 Saturation ABG Base Excess ABG Hemoglobin Oxyhemoglobin Sodium Potassium Chloride Carbon Dioxide BUN Creatinine Glucose POC Glucose 262 H 287 H Hemoglobin A1c Calcium Phosphorus Magnesium AST Troponin T NT-Pro-B Natriuret Pep Total Protein Albumin Triglycerides LDL Cholesterol Direct HDL Cholesterol PTH Intact Urine Creatinine Urine Total Protein 07/02/22 07/02/22 07/02/22 08:12 08:12 20:28 WBC RBC Hgb 14.7 H Hct 46.3 H Plt Count 138 L Lymph % (Auto) [place] % (Auto) Lymph # (Auto) [place] # (Auto) Seg Neutrophils % Seg Neuts % (Manual) Lymphocytes % (Manual) Seg Neutrophils # Seg Neutrophils # Man Lymphocytes # (Manual) PT INR APTT Heparin Anti-Xa Level 0.21 L ABG pH ABG pO2 ABG HCO3 ABG O2 Saturation ABG Base Excess ABG Hemoglobin Oxyhemoglobin Sodium 129 L Potassium Chloride 95.7 L Carbon Dioxide 17 L BUN 24 H Creatinine Glucose 275 H POC Glucose Hemoglobin A1c Calcium Phosphorus 2.10 L D Magnesium AST Troponin T NT-Pro-B Natriuret Pep Total Protein Albumin Triglycerides LDL Cholesterol Direct HDL Cholesterol PTH Intact Urine Creatinine Urine Total Protein 07/02/22 07/02/22 07/03/22 20:28 23:01 07:28 WBC RBC Hgb Hct Plt Count Lymph % (Auto) [place] % (Auto) Lymph # (Auto) [place] # (Auto) Seg Neutrophils % Seg Neuts % (Manual) Lymphocytes % (Manual) Seg Neutrophils # Seg Neutrophils # Man Lymphocytes # (Manual) PT 17.3 H INR 1.26 H APTT 24.1 L Heparin Anti-Xa Level ABG pH ABG pO2 ABG HCO3 ABG O2 Saturation ABG Base Excess ABG Hemoglobin Oxyhemoglobin Sodium Potassium Chloride Carbon Dioxide BUN Creatinine Glucose POC Glucose 340 H 261 H Hemoglobin A1c Calcium Phosphorus Magnesium AST Troponin T NT-Pro-B Natriuret Pep Total Protein Albumin Triglycerides LDL Cholesterol Direct HDL Cholesterol PTH Intact Urine Creatinine Urine Total Protein 07/03/22 07/03/22 07/03/22 11:30 12:20 16:23 WBC RBC Hgb Hct Plt Count Lymph % (Auto) [place] % (Auto) Lymph # (Auto) [place] # (Auto) Seg Neutrophils % Seg Neuts % (Manual) Lymphocytes % (Manual) Seg Neutrophils # Seg Neutrophils # Man Lymphocytes # (Manual) PT INR APTT Heparin Anti-Xa Level ABG pH ABG pO2 ABG HCO3 ABG O2 Saturation ABG Base Excess ABG Hemoglobin Oxyhemoglobin Sodium 134 L Potassium Chloride Carbon Dioxide BUN 18 H Creatinine Glucose 271 H POC Glucose 292 H 255 H Hemoglobin A1c Calcium Phosphorus Magnesium AST Troponin T NT-Pro-B Natriuret Pep Total Protein Albumin Triglycerides LDL Cholesterol Direct HDL Cholesterol PTH Intact Urine Creatinine Urine Total Protein 07/03/22 07/04/22 07/04/22 22:01 05:37 05:37 WBC RBC Hgb Hct Plt Count Lymph % (Auto) 8.4 L [place] % (Auto) 10.1 H Lymph # (Auto) 0.8 L [place] # (Auto) 1.0 H Seg Neutrophils % 80.6 H Seg Neuts % (Manual) Lymphocytes % (Manual) Seg Neutrophils # 8.0 H Seg Neutrophils # Man Lymphocytes # (Manual) PT INR APTT Heparin Anti-Xa Level ABG pH ABG pO2 ABG HCO3 ABG O2 Saturation ABG Base Excess ABG Hemoglobin Oxyhemoglobin Sodium Potassium Chloride Carbon Dioxide BUN Creatinine Glucose 217 H POC Glucose 281 H Hemoglobin A1c Calcium Phosphorus Magnesium AST Troponin T NT-Pro-B Natriuret Pep Total Protein Albumin Triglycerides LDL Cholesterol Direct HDL Cholesterol PTH Intact Urine Creatinine Urine Total Protein 07/04/22 07/04/22 07/04/22 07:40 11:15 11:52 WBC RBC Hgb Hct Plt Count Lymph % (Auto) [place] % (Auto) Lymph # (Auto) [place] # (Auto) Seg Neutrophils % Seg Neuts % (Manual) Lymphocytes % (Manual) Seg Neutrophils # Seg Neutrophils # Man Lymphocytes # (Manual) PT INR APTT Heparin Anti-Xa Level ABG pH 7.303 L ABG pO2 64.6 L ABG HCO3 ABG O2 Saturation 92.9 L ABG Base Excess ABG Hemoglobin 11.9 L Oxyhemoglobin 90.6 L Sodium Potassium Chloride Carbon Dioxide BUN Creatinine Glucose POC Glucose 211 H 267 H Hemoglobin A1c Calcium Phosphorus Magnesium AST Troponin T NT-Pro-B Natriuret Pep Total Protein Albumin Triglycerides LDL Cholesterol Direct HDL Cholesterol PTH Intact Urine Creatinine Urine Total Protein 07/04/22 07/04/22 07/05/22 16:51 22:03 07:48 WBC RBC Hgb Hct Plt Count Lymph % (Auto) [place] % (Auto) Lymph # (Auto) [place] # (Auto) Seg Neutrophils % Seg Neuts % (Manual) Lymphocytes % (Manual) Seg Neutrophils # Seg Neutrophils # Man Lymphocytes # (Manual) PT INR APTT Heparin Anti-Xa Level ABG pH ABG pO2 ABG HCO3 ABG O2 Saturation ABG Base Excess ABG Hemoglobin Oxyhemoglobin Sodium Potassium Chloride Carbon Dioxide BUN Creatinine Glucose POC Glucose 273 H 202 H 223 H Hemoglobin A1c Calcium Phosphorus Magnesium AST Troponin T NT-Pro-B Natriuret Pep Total Protein Albumin Triglycerides LDL Cholesterol Direct HDL Cholesterol PTH Intact Urine Creatinine Urine Total Protein 07/05/22 07/05/22 07/05/22 11:06 18:03 Unknown WBC 16.5 H RBC Hgb Hct Plt Count Lymph % (Auto) [place] % (Auto) Lymph # (Auto) [place] # (Auto) Seg Neutrophils % Seg Neuts % (Manual) 91.0 H Lymphocytes % (Manual) 1.0 L Seg Neutrophils # Seg Neutrophils # Man 15.0 H Lymphocytes # (Manual) 0.2 L PT INR APTT Heparin Anti-Xa Level ABG pH 7.313 L ABG pO2 102.1 H ABG HCO3 27.2 H ABG O2 Saturation ABG Base Excess ABG Hemoglobin 10.6 L Oxyhemoglobin Sodium Potassium Chloride Carbon Dioxide BUN Creatinine Glucose POC Glucose 219 H Hemoglobin A1c Calcium Phosphorus Magnesium AST Troponin T NT-Pro-B Natriuret Pep Total Protein Albumin Triglycerides LDL Cholesterol Direct HDL Cholesterol PTH Intact Urine Creatinine Urine Total Protein 07/05/22 07/06/22 07/06/22 Unknown 00:30 03:33 WBC RBC Hgb Hct Plt Count Lymph % (Auto) [place] % (Auto) Lymph # (Auto) [place] # (Auto) Seg Neutrophils % Seg Neuts % (Manual) Lymphocytes % (Manual) Seg Neutrophils # Seg Neutrophils # Man Lymphocytes # (Manual) PT INR APTT Heparin Anti-Xa Level ABG pH ABG pO2 142.7 H ABG HCO3 28.9 H ABG O2 Saturation ABG Base Excess 3.6 H ABG Hemoglobin 10.5 L Oxyhemoglobin Sodium Potassium Chloride Carbon Dioxide BUN Creatinine Glucose 290 H POC Glucose 199 H Hemoglobin A1c Calcium Phosphorus Magnesium AST Troponin T NT-Pro-B Natriuret Pep Total Protein Albumin Triglycerides LDL Cholesterol Direct HDL Cholesterol PTH Intact Urine Creatinine Urine Total Protein 07/06/22 07/06/22 07/06/22 04:00 04:00 06:00 WBC 11.4 H RBC 3.55 L Hgb Hct Plt Count Lymph % (Auto) [place] % (Auto) Lymph # (Auto) [place] # (Auto) Seg Neutrophils % Seg Neuts % (Manual) Lymphocytes % (Manual) Seg Neutrophils # Seg Neutrophils # Man Lymphocytes # (Manual) PT INR APTT Heparin Anti-Xa Level ABG pH ABG pO2 ABG HCO3 ABG O2 Saturation ABG Base Excess ABG Hemoglobin Oxyhemoglobin Sodium Potassium Chloride Carbon Dioxide BUN 22 H Creatinine 1.3 H Glucose 173 H POC Glucose 180 H Hemoglobin A1c Calcium Phosphorus Magnesium AST Troponin T NT-Pro-B Natriuret Pep Total Protein Albumin Triglycerides LDL Cholesterol Direct HDL Cholesterol PTH Intact Urine Creatinine Urine Total Protein 07/06/22 07/06/22 07/06/22 09:19 12:39 17:30 WBC RBC Hgb Hct Plt Count Lymph % (Auto) [place] % (Auto) Lymph # (Auto) [place] # (Auto) Seg Neutrophils % Seg Neuts % (Manual) Lymphocytes % (Manual) Seg Neutrophils # Seg Neutrophils # Man Lymphocytes # (Manual) PT INR APTT Heparin Anti-Xa Level ABG pH ABG pO2 ABG HCO3 ABG O2 Saturation ABG Base Excess ABG Hemoglobin Oxyhemoglobin Sodium Potassium Chloride Carbon Dioxide BUN Creatinine Glucose POC Glucose 198 H 179 H 106 H Hemoglobin A1c Calcium Phosphorus Magnesium AST Troponin T NT-Pro-B Natriuret Pep Total Protein Albumin Triglycerides LDL Cholesterol Direct HDL Cholesterol PTH Intact Urine Creatinine Urine Total Protein 07/06/22 07/06/22 07/07/22 20:59 23:30 03:02 WBC RBC Hgb Hct Plt Count Lymph % (Auto) [place] % (Auto) Lymph # (Auto) [place] # (Auto) Seg Neutrophils % Seg Neuts % (Manual) Lymphocytes % (Manual) Seg Neutrophils # Seg Neutrophils # Man Lymphocytes # (Manual) PT INR APTT Heparin Anti-Xa Level ABG pH ABG pO2 ABG HCO3 ABG O2 Saturation ABG Base Excess ABG Hemoglobin Oxyhemoglobin Sodium Potassium Chloride Carbon Dioxide BUN Creatinine Glucose POC Glucose 152 H 126 H 135 H Hemoglobin A1c Calcium Phosphorus Magnesium AST Troponin T NT-Pro-B Natriuret Pep Total Protein Albumin Triglycerides LDL Cholesterol Direct HDL Cholesterol PTH Intact Urine Creatinine Urine Total Protein 07/07/22 07/07/22 07/07/22 04:13 05:35 05:35 WBC RBC 3.13 L Hgb 9.7 L Hct 28.7 L Plt Count Lymph % (Auto) [place] % (Auto) Lymph # (Auto) [place] # (Auto) Seg Neutrophils % Seg Neuts % (Manual) Lymphocytes % (Manual) Seg Neutrophils # Seg Neutrophils # Man Lymphocytes # (Manual) PT INR APTT Heparin Anti-Xa Level ABG pH 7.473 H ABG pO2 93.4 H ABG HCO3 29.9 H ABG O2 Saturation ABG Base Excess 5.8 H ABG Hemoglobin 10.0 L Oxyhemoglobin Sodium Potassium Chloride Carbon Dioxide 31 H BUN 21 H Creatinine Glucose POC Glucose Hemoglobin A1c Calcium Phosphorus Magnesium AST Troponin T NT-Pro-B Natriuret Pep Total Protein Albumin Triglycerides LDL Cholesterol Direct HDL Cholesterol PTH Intact Urine Creatinine Urine Total Protein 07/07/22 07/07/22 07/07/22 06:15 12:25 18:36 WBC RBC Hgb Hct Plt Count Lymph % (Auto) [place] % (Auto) Lymph # (Auto) [place] # (Auto) Seg Neutrophils % Seg Neuts % (Manual) Lymphocytes % (Manual) Seg Neutrophils # Seg Neutrophils # Man Lymphocytes # (Manual) PT INR APTT Heparin Anti-Xa Level ABG pH ABG pO2 ABG HCO3 ABG O2 Saturation ABG Base Excess ABG Hemoglobin Oxyhemoglobin Sodium Potassium Chloride Carbon Dioxide BUN Creatinine Glucose POC Glucose 67 L 111 H 167 H Hemoglobin A1c Calcium Phosphorus Magnesium AST Troponin T NT-Pro-B Natriuret Pep Total Protein Albumin Triglycerides LDL Cholesterol Direct HDL Cholesterol PTH Intact Urine Creatinine Urine Total Protein 07/07/22 07/08/22 07/08/22 23:38 04:00 04:15 WBC RBC Hgb Hct Plt Count Lymph % (Auto) [place] % (Auto) Lymph # (Auto) [place] # (Auto) Seg Neutrophils % Seg Neuts % (Manual) Lymphocytes % (Manual) Seg Neutrophils # Seg Neutrophils # Man Lymphocytes # (Manual) PT INR APTT Heparin Anti-Xa Level ABG pH ABG pO2 63.4 L ABG HCO3 29.2 H ABG O2 Saturation 94.0 L ABG Base Excess 4.2 H ABG Hemoglobin 10.0 L Oxyhemoglobin 91.8 L Sodium Potassium Chloride Carbon Dioxide BUN 26 H Creatinine Glucose 276 H POC Glucose 243 H Hemoglobin A1c Calcium Phosphorus Magnesium AST Troponin T NT-Pro-B Natriuret Pep Total Protein Albumin Triglycerides LDL Cholesterol Direct HDL Cholesterol PTH Intact Urine Creatinine Urine Total Protein 07/08/22 07/08/22 07/08/22 05:00 05:07 11:33 WBC RBC 3.30 L Hgb 9.9 L Hct Plt Count Lymph % (Auto) [place] % (Auto) Lymph # (Auto) [place] # (Auto) Seg Neutrophils % Seg Neuts % (Manual) Lymphocytes % (Manual) Seg Neutrophils # Seg Neutrophils # Man Lymphocytes # (Manual) PT INR APTT Heparin Anti-Xa Level ABG pH ABG pO2 ABG HCO3 ABG O2 Saturation ABG Base Excess ABG Hemoglobin Oxyhemoglobin Sodium Potassium Chloride Carbon Dioxide BUN Creatinine Glucose POC Glucose 282 H 315 H Hemoglobin A1c Calcium Phosphorus Magnesium AST Troponin T NT-Pro-B Natriuret Pep Total Protein Albumin Triglycerides LDL Cholesterol Direct HDL Cholesterol PTH Intact Urine Creatinine Urine Total Protein 07/08/22 07/08/22 07/08/22 15:56 22:12 23:33 WBC RBC Hgb Hct Plt Count Lymph % (Auto) [place] % (Auto) Lymph # (Auto) [place] # (Auto) Seg Neutrophils % Seg Neuts % (Manual) Lymphocytes % (Manual) Seg Neutrophils # Seg Neutrophils # Man Lymphocytes # (Manual) PT INR APTT Heparin Anti-Xa Level ABG pH ABG pO2 ABG HCO3 ABG O2 Saturation ABG Base Excess ABG Hemoglobin Oxyhemoglobin Sodium Potassium Chloride Carbon Dioxide BUN Creatinine Glucose POC Glucose 378 H 389 H 390 H Hemoglobin A1c Calcium Phosphorus Magnesium AST Troponin T NT-Pro-B Natriuret Pep Total Protein Albumin Triglycerides LDL Cholesterol Direct HDL Cholesterol PTH Intact Urine Creatinine Urine Total Protein 07/09/22 07/09/22 07/09/22 04:00 04:00 05:18 WBC RBC 3.30 L Hgb 9.9 L Hct Plt Count Lymph % (Auto) [place] % (Auto) Lymph # (Auto) [place] # (Auto) Seg Neutrophils % Seg Neuts % (Manual) Lymphocytes % (Manual) Seg Neutrophils # Seg Neutrophils # Man Lymphocytes # (Manual) PT INR APTT Heparin Anti-Xa Level ABG pH ABG pO2 ABG HCO3 ABG O2 Saturation ABG Base Excess ABG Hemoglobin Oxyhemoglobin Sodium 146 H Potassium Chloride Carbon Dioxide BUN 36 H Creatinine Glucose 365 H POC Glucose 389 H Hemoglobin A1c Calcium Phosphorus Magnesium AST Troponin T NT-Pro-B Natriuret Pep Total Protein Albumin Triglycerides LDL Cholesterol Direct HDL Cholesterol PTH Intact Urine Creatinine Urine Total Protein 07/09/22 07/09/22 07/09/22 11:04 11:35 16:14 WBC RBC Hgb Hct Plt Count Lymph % (Auto) [place] % (Auto) Lymph # (Auto) [place] # (Auto) Seg Neutrophils % Seg Neuts % (Manual) Lymphocytes % (Manual) Seg Neutrophils # Seg Neutrophils # Man Lymphocytes # (Manual) PT INR APTT Heparin Anti-Xa Level ABG pH ABG pO2 74.0 L ABG HCO3 31.4 H ABG O2 Saturation ABG Base Excess 4.6 H ABG Hemoglobin 11.1 L Oxyhemoglobin 93.1 L Sodium Potassium Chloride Carbon Dioxide BUN Creatinine Glucose POC Glucose 328 H 273 H Hemoglobin A1c Calcium Phosphorus Magnesium AST Troponin T NT-Pro-B Natriuret Pep Total Protein Albumin Triglycerides LDL Cholesterol Direct HDL Cholesterol PTH Intact Urine Creatinine Urine Total Protein 07/09/22 07/10/22 07/10/22 21:54 02:02 03:18 WBC RBC Hgb Hct Plt Count Lymph % (Auto) [place] % (Auto) Lymph # (Auto) [place] # (Auto) Seg Neutrophils % Seg Neuts % (Manual) Lymphocytes % (Manual) Seg Neutrophils # Seg Neutrophils # Man Lymphocytes # (Manual) PT INR APTT Heparin Anti-Xa Level ABG pH ABG pO2 ABG HCO3 ABG O2 Saturation ABG Base Excess ABG Hemoglobin Oxyhemoglobin Sodium Potassium Chloride Carbon Dioxide BUN Creatinine Glucose POC Glucose 271 H 261 H 268 H Hemoglobin A1c Calcium Phosphorus Magnesium AST Troponin T NT-Pro-B Natriuret Pep Total Protein Albumin Triglycerides LDL Cholesterol Direct HDL Cholesterol PTH Intact Urine Creatinine Urine Total Protein 07/10/22 07/10/22 07/10/22 04:21 04:21 05:46 WBC RBC 3.55 L Hgb Hct Plt Count Lymph % (Auto) [place] % (Auto) Lymph # (Auto) [place] # (Auto) Seg Neutrophils % Seg Neuts % (Manual) Lymphocytes % (Manual) Seg Neutrophils # Seg Neutrophils # Man Lymphocytes # (Manual) PT INR APTT Heparin Anti-Xa Level ABG pH ABG pO2 ABG HCO3 ABG O2 Saturation ABG Base Excess ABG Hemoglobin Oxyhemoglobin Sodium 148 H Potassium Chloride Carbon Dioxide 32 H BUN 31 H Creatinine Glucose 253 H POC Glucose 222 H Hemoglobin A1c Calcium Phosphorus Magnesium AST Troponin T NT-Pro-B Natriuret Pep Total Protein 6.0 L Albumin 2.9 L Triglycerides LDL Cholesterol Direct HDL Cholesterol PTH Intact Urine Creatinine Urine Total Protein 07/10/22 07/10/22 07/10/22 09:55 13:55 16:08 WBC RBC Hgb Hct Plt Count Lymph % (Auto) [place] % (Auto) Lymph # (Auto) [place] # (Auto) Seg Neutrophils % Seg Neuts % (Manual) Lymphocytes % (Manual) Seg Neutrophils # Seg Neutrophils # Man Lymphocytes # (Manual) PT INR APTT Heparin Anti-Xa Level ABG pH ABG pO2 ABG HCO3 ABG O2 Saturation ABG Base Excess ABG Hemoglobin Oxyhemoglobin Sodium Potassium Chloride Carbon Dioxide BUN Creatinine Glucose POC Glucose 181 H 186 H 185 H Hemoglobin A1c Calcium Phosphorus Magnesium AST Troponin T NT-Pro-B Natriuret Pep Total Protein Albumin Triglycerides LDL Cholesterol Direct HDL Cholesterol PTH Intact Urine Creatinine Urine Total Protein 07/10/22 07/10/22 07/11/22 17:31 20:12 02:20 WBC RBC Hgb Hct Plt Count Lymph % (Auto) [place] % (Auto) Lymph # (Auto) [place] # (Auto) Seg Neutrophils % Seg Neuts % (Manual) Lymphocytes % (Manual) Seg Neutrophils # Seg Neutrophils # Man Lymphocytes # (Manual) PT INR APTT Heparin Anti-Xa Level ABG pH ABG pO2 ABG HCO3 ABG O2 Saturation ABG Base Excess ABG Hemoglobin Oxyhemoglobin Sodium Potassium Chloride Carbon Dioxide BUN Creatinine Glucose POC Glucose 190 H 211 H 238 H Hemoglobin A1c Calcium Phosphorus Magnesium AST Troponin T NT-Pro-B Natriuret Pep Total Protein Albumin Triglycerides LDL Cholesterol Direct HDL Cholesterol PTH Intact Urine Creatinine Urine Total Protein 07/11/22 07/11/22 07/11/22 04:00 05:14 09:34 WBC RBC Hgb Hct Plt Count Lymph % (Auto) [place] % (Auto) Lymph # (Auto) [place] # (Auto) Seg Neutrophils % Seg Neuts % (Manual) Lymphocytes % (Manual) Seg Neutrophils # Seg Neutrophils # Man Lymphocytes # (Manual) PT INR APTT Heparin Anti-Xa Level ABG pH ABG pO2 ABG HCO3 ABG O2 Saturation ABG Base Excess ABG Hemoglobin Oxyhemoglobin Sodium 146 H Potassium Chloride Carbon Dioxide 34 H BUN 26 H Creatinine Glucose 222 H POC Glucose 234 H 204 H Hemoglobin A1c Calcium Phosphorus Magnesium AST Troponin T NT-Pro-B Natriuret Pep Total Protein Albumin Triglycerides LDL Cholesterol Direct HDL Cholesterol PTH Intact Urine Creatinine Urine Total Protein 07/11/22 07/11/22 07/11/22 13:41 17:34 22:06 WBC RBC Hgb Hct Plt Count Lymph % (Auto) [place] % (Auto) Lymph # (Auto) [place] # (Auto) Seg Neutrophils % Seg Neuts % (Manual) Lymphocytes % (Manual) Seg Neutrophils # Seg Neutrophils # Man Lymphocytes # (Manual) PT INR APTT Heparin Anti-Xa Level ABG pH ABG pO2 ABG HCO3 ABG O2 Saturation ABG Base Excess ABG Hemoglobin Oxyhemoglobin Sodium Potassium Chloride Carbon Dioxide BUN Creatinine Glucose POC Glucose 324 H 339 H 333 H Hemoglobin A1c Calcium Phosphorus Magnesium AST Troponin T NT-Pro-B Natriuret Pep Total Protein Albumin Triglycerides LDL Cholesterol Direct HDL Cholesterol PTH Intact Urine Creatinine Urine Total Protein 07/12/22 07/12/22 07/12/22 02:11 04:18 04:18 WBC RBC 3.44 L Hgb Hct Plt Count Lymph % (Auto) [place] % (Auto) 7.4 H Lymph # (Auto) [place] # (Auto) Seg Neutrophils % Seg Neuts % (Manual) Lymphocytes % (Manual) Seg Neutrophils # Seg Neutrophils # Man Lymphocytes # (Manual) PT INR APTT Heparin Anti-Xa Level ABG pH ABG pO2 ABG HCO3 ABG O2 Saturation ABG Base Excess ABG Hemoglobin Oxyhemoglobin Sodium 149 H Potassium Chloride Carbon Dioxide 41 H* D BUN 19 H Creatinine Glucose 207 H POC Glucose 258 H Hemoglobin A1c Calcium Phosphorus 2.10 L Magnesium AST Troponin T NT-Pro-B Natriuret Pep Total Protein 5.5 L Albumin 2.6 L Triglycerides LDL Cholesterol Direct HDL Cholesterol PTH Intact Urine Creatinine Urine Total Protein Allied health notes reviewed: nursing
--- NOTE | 2022-07-12 13:40 | Progress Note ---
Subjective - Reason for Consult Consult date: 07/12/22 Reason for consult: hx of bipolar - Chief Complaint Chief complaint: The patient was seen today, she is awake and alert. A nurse is at bedside. The patient reports feeling somewhat better. She says she still has some anxiety. The nurse says the patient has been overall calm and hasn't appeared restless. She denies SI/HI or hallucinations of any kind. ROS 02 NC MENTAL STATUS EXAMINATION General Appearance and Behavior: cooperative Cooperation: cooperative Psychomotor Behavior: unable to assess Mood: Anxious Affect and affective range: congruent with stated mood Thought Process: goal directed Thought Content: within realty Speech: Normal tone and pace Suicidal Ideation: Denies Homicidal Ideation: Denies Hallucination: Denies Delusions: None elicited Impulse Control: Normal Insight and Judgment: Normal Memory: Limited Attention: attentive Orientation: a/o ASSESSMENT Hx of Bipolar disorder Generalized Anxiety Disorder TREATMENT Scripts printed and placed on chart Vistaril 25mg po q6h prn anxiety Valproic 250mg po qhs Mirtazepine 15mg po qhs Risks, benefits and alternatives of medications discussed with the patient, questions answered and consent obtained from patient. PSYCHOTHERAPY: Supportive psychotherapy provided MEDICAL: Per primary team DELIRIUM PRECAUTIONS: Please re-orient patient frequently, keep lights on during the day, and minimize benzodiazepines and opiates as these medications could worsen patient's confusion. 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 FOLLOW-UP: Will sign off. Thanks Thank you for the consult. Please contact with any questions and/or concerns. Case staffed with Dr. Andrews Mental Status Exam - Vital signs Last Vital Signs Temp 97.6 F 07/12/22 08:39 Pulse 68 07/12/22 10:00 Resp 25 H 07/12/22 10:00 BP 136/65 07/12/22 10:00 Pulse Ox 96 07/12/22 10:00
--- NOTE | 2022-07-12 17:03 | Progress Note ---
Assessment and Plan - Patient Problems (1) Cardiopulmonary arrest Current Visit: Yes Status: Acute Plan to address problem: Patient was on compliance monitor at the time of her respiratory decompensation, no primary cardiac arrhythmias were noted. Possible etiologies has been pulmonary atelectasis, sleep apnea and pulmonary embolism. No likely cardiac etiology. Echocardiogram shows normal left ventricular chamber size and systolic function with ejection fraction 60 to 65%. Conversely, there is moderate dilatation of the right heart chambers, with normal pulmonary artery pressure. (2) Paroxysmal atrial fibrillation Current Visit: Yes Status: Acute Plan to address problem: Patient has paroxysmal atrial fibrillation, with underlying right bundle branch block, findings are chronic. 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 Continue current management. Subjective Date of service: 07/12/22 Principal diagnosis: AHRF; DKA; Hyperkalemia; COPD; ? cellulitis; PVD; STEFFANIE; Morbid obesity; ?JACKLYN Interval history: Patient is comfortably no acute distress, breathing comfortably on room air, on compliance monitor there is a stable sinus rhythm at 65. Objective Vital Signs Temp Pulse Pulse Pulse Pulse Pulse Resp 07/12/22 16:45 98.9 F 07/12/22 16:00 67 30 H 07/12/22 15:59 65 07/12/22 15:56 69 20 07/12/22 15:38 68 07/12/22 15:01 75 18 07/12/22 14:01 77 31 H 07/12/22 13:00 84 28 H 07/12/22 12:00 63 71 15 07/12/22 11:00 66 28 H 07/12/22 10:00 68 25 H 07/12/22 09:00 73 28 H 07/12/22 08:58 67 15 07/12/22 08:56 70 07/12/22 08:39 97.6 F 07/12/22 08:10 67 07/12/22 08:01 67 9 L 07/12/22 08:00 62 30 H 07/12/22 07:58 07/12/22 07:00 58 L 17 07/12/22 06:00 63 26 H 07/12/22 05:32 60 21 07/12/22 05:00 60 17 07/12/22 04:00 59 L 59 L 59 L 59 L 16 09/29/22 03:00 62 15 07/12/22 02:00 61 24 07/12/22 01:59 65 07/12/22 01:02 72 24 07/12/22 01:00 70 22 07/12/22 00:00 72 68 68 68 26 H 07/11/22 23:00 75 32 H 07/11/22 22:17 74 24 07/11/22 22:01 75 30 H 07/11/22 21:00 77 26 H 07/11/22 20:00 76 72 72 72 28 H 07/11/22 19:39 07/11/22 19:38 81 07/11/22 19:00 82 28 H 07/11/22 18:00 86 31 H Resp BP Pulse Ox 07/12/22 16:45 07/12/22 16:00 145/64 93 07/12/22 15:59 07/12/22 15:56 95 07/12/22 15:38 16 07/12/22 15:01 181/95 83 L 07/12/22 14:01 138/63 90 07/12/22 13:00 132/61 94 07/12/22 12:00 139/61 95 07/12/22 11:00 150/64 94 07/12/22 10:00 136/65 96 07/12/22 09:00 142/46 97 07/12/22 08:58 95 07/12/22 08:56 07/12/22 08:39 07/12/22 08:10 18 07/12/22 08:01 156/54 95 07/12/22 08:00 156/54 95 07/12/22 07:58 95 07/12/22 07:00 123/60 97 07/12/22 06:00 130/61 98 07/12/22 05:32 118/57 99 07/12/22 05:00 119/61 98 07/12/22 04:00 120/60 98 07/12/22 03:00 112/59 97 07/12/22 02:00 126/62 98 07/12/22 01:59 24 98 07/12/22 01:02 120/59 97 07/12/22 01:00 128/62 97 07/12/22 00:00 121/59 98 07/11/22 23:00 133/62 96 07/11/22 22:17 123/60 96 07/11/22 22:01 121/61 07/11/22 21:00 126/60 93 07/11/22 20:00 111/60 89 07/11/22 19:39 88 07/11/22 19:38 25 H 07/11/22 19:00 125/59 85 07/11/22 18:00 120/63 94 - Physical Examination General: No Apparent Distress HEENT: Positive: PERRL Neck: Positive: neck supple Cardiac: Positive: Reg Rate and Rhythm Lungs: Positive: Decreased Breath Sounds Neuro: Positive: Weakness (Generalized lethargy) Abdomen: Positive: Soft Skin: Positive: Clear Extremities: Absent: edema - Labs and Meds Cardiac Enzymes 07/12/22 Range/Units 04:18 AST 13 (5-40) units/L CBC 07/12/22 Range/Units 04:18 WBC 8.3 (4.5-11.0) K/mm3 RBC 3.44 L (3.65-5.03) M/mm3 Hgb 10.3 (10.1-14.3) gm/dl Hct 32.4 (30.3-42.9) % Plt Count 198 (140-440) K/mm3 Lymph # (Auto) 1.8 (1.2-5.4) K/mm3 Jenkins # (Auto) 0.6 (0.0-0.8) K/mm3 Eos # (Auto) 0.0 (0.0-0.4) K/mm3 Baso # (Auto) 0.1 (0.0-0.1) K/mm3 Comprehensive Metabolic Panel 07/12/22 Range/Units 04:18 Sodium 149 H (137-145) mmol/L Potassium 4.2 (3.6-5.0) mmol/L Chloride 105.5 (98-107) mmol/L Carbon Dioxide 41 H* D (22-30) mmol/L BUN 19 H (7-17) mg/dL Creatinine 0.9 (0.6-1.2) mg/dL Glucose 207 H (65-100) mg/dL Calcium 9.4 (8.4-10.2) mg/dL AST 13 (5-40) units/L ALT 19 (7-56) units/L Alkaline Phosphatase 82 (35-129) units/L Total Protein 5.5 L (6.3-8.2) g/dL Albumin 2.6 L (3.9-5) g/dL - Allied health notes Allied health notes reviewed: nursing
[2022-07-12] MEDS: ONDANSETRON 4 MG/2 ML INJ IV PRN (17:46)
[2022-07-12] MEDS: INSULIN GLARGINE 100 UNITS/ML SUB-Q SCH (22:25)
[2022-07-12] MEDS: MIRTAZAPINE 15 MG SOLUTAB PO SCH (22:26)
[2022-07-13] MEDS: VALPROIC ACID 250 MG/5 ML ORAL LIQD FEEDTUBE SCH ×4 (00:52→17:37)
[2022-07-13] MEDS: IPRATROPIUM/ALBUTEROL SULFATE 3 ML AMPUL.NEB IH SCH ×4 (02:25→21:03)
[2022-07-13 05:16] LABS: BUN/Creatinine Ratio 17; Blood Urea Nitrogen 15 mg/dL (7-17); Calcium 9.6 mg/dL (8.4-10.2); Hemolysis Index 0
--- NOTE | 2022-07-13 08:47 | Progress Note ---
Assessment and Plan 1. Acute kidney injury: Suspect vasomotor STEFFANIE in the setting of DKA/volume depletion. Renal US negative for hydro/stone. Monitor renal function. Creatinine leveled off. Avoid nephrotoxic agents. Meds dosage based on GFR. 2. FEN: Metabolic alkalosis, compensatory, IV Diamox ordered, monitor. Hypernatremia, monitor. Anion-gap Metabolic acidosis, 2/2 DKA, improved, monitor. Replete lytes as needed. Monitor lytes and volume status. 3. S/p Cardiac arrest 07/05: Currently in ICU. Followed by Cards. 4. Resp failure: S/p extubated. On HFNC O2. 5. A.fib with RVR: SR now. Followed by Cards. 6. DKA: Admits to stop taking meds at home. S/p Insulin drip. Improved. Monitor. 7. Acute DVT involving the external iliac veins bilaterally with thrombus extending distally bilaterally: S/p LE angioplsty Followed by Vascular. 8. Hyotension: Off pressors. Monitor BP. 9. H/o COPD. Subjective: Patient was seen and examined at the bedside. Examination: General appearance: well-developed, obese, appears stated age, on HFNC O2 HEENT: atraumatic, no icterus Neck: trachea midline Respiratory: diminished breath sounds heard Heart: S1S2, regular, no murmur Abdomen: soft, obese, bowel sounds heard, NT Integumentary: LE dressing noted Neurologic: somnolent, conversing, generalized weakness Ext: trace Ext and dependent edema Subjective Date of service: 07/13/22 Principal diagnosis: AHRF; DKA; Hyperkalemia; COPD; ? cellulitis; PVD; STEFFANIE; Morbid obesity; ?JACKLYN Objective - Vital Signs Vital signs: Vital Signs - 12hr 07/12/22 07/12/22 07/12/22 21:00 22:00 23:00 Temperature Pulse Rate 76 79 79 Pulse Rate [ Anterior Throughout] Pulse Rate [ From Monitor] Respiratory 25 H 25 H 29 H Rate Respiratory Rate [Anterior Throughout] Blood Pressure 129/63 130/64 130/69 O2 Sat by Pulse 93 95 96 Oximetry 07/12/22 07/13/22 07/13/22 23:20 00:00 00:01 Temperature Pulse Rate 72 68 73 Pulse Rate [ Anterior Throughout] Pulse Rate [ 65 From Monitor] Respiratory 20 19 16 Rate Respiratory Rate [Anterior Throughout] Blood Pressure 130/69 126/52 O2 Sat by Pulse 99 95 99 Oximetry 07/13/22 07/13/22 07/13/22 00:39 01:00 02:00 Temperature 99.5 F Pulse Rate 68 64 Pulse Rate [ Anterior Throughout] Pulse Rate [ From Monitor] Respiratory 20 17 Rate Respiratory Rate [Anterior Throughout] Blood Pressure 120/59 114/60 O2 Sat by Pulse 100 99 Oximetry 07/13/22 07/13/22 07/13/22 02:25 02:26 03:00 Temperature Pulse Rate 64 Pulse Rate [ 66 Anterior Throughout] Pulse Rate [ From Monitor] Respiratory 13 Rate Respiratory 17 Rate [Anterior Throughout] Blood Pressure 100/56 O2 Sat by Pulse 99 96 Oximetry 07/13/22 07/13/22 07/13/22 03:20 04:00 04:27 Temperature 98.1 F Pulse Rate 64 64 Pulse Rate [ Anterior Throughout] Pulse Rate [ 65 From Monitor] Respiratory 14 16 Rate Respiratory Rate [Anterior Throughout] Blood Pressure 107/56 107/56 O2 Sat by Pulse 99 98 Oximetry 07/13/22 07/13/22 05:01 06:01 Temperature Pulse Rate 66 64 Pulse Rate [ Anterior Throughout] Pulse Rate [ From Monitor] Respiratory 19 18 Rate Respiratory Rate [Anterior Throughout] Blood Pressure 110/62 110/62 O2 Sat by Pulse 97 99 Oximetry - Lab 07/12/22 04:18 07/13/22 04:03 Most recent lab results ABG pH 7.352 pH Units (7.350-7.450) 07/09/22 11:35 ABG pCO2 57.9 mm Hg 07/09/22 11:35 ABG pO2 74.0 mm Hg (80.0-90.0) L 07/09/22 11:35 ABG HCO3 31.4 mmol/L (20.0-26.0) H 07/09/22 11:35 ABG O2 Saturation 95.2 % (95.0-99.0) 07/09/22 11:35 Calcium 9.6 mg/dL (8.4-10.2) 07/13/22 04:03 Phosphorus 3.00 mg/dL (2.5-4.5) D 07/13/22 04:03 Magnesium 2.10 mg/dL (1.7-2.3) 07/13/22 04:03 Urine Creatinine 85.4 mg/dL (0.1-20.0) H 06/28/22 08:10 Urine Sodium 10 mmol/L 06/28/22 08:10 Urine Total Protein 49 mg/dL (5-11.8) H 06/28/22 08:10 Medications & Allergies - Medications Allergies/Adverse Reactions: Allergies ciprofloxacin [From Cipro] Allergy (Verified 05/28/22 12:07) Unknown Penicillins Allergy (Verified 05/28/22 12:07) Unknown Home Medications: Home Medications Medication Instructions Recorded Confirmed Last Taken Type Apixaban [Eliquis] 5 mg PO BID 04/13/21 06/28/22 Unknown History Empagliflozin [Jardiance] 25 mg DAILY 04/13/21 06/28/22 Unknown History Fenofibrate 160 mg PO DAILY 04/13/21 06/28/22 Unknown History Glimepiride 4 mg BID 04/13/21 06/28/22 Unknown History Insulin Aspart (Nf) [NovoLOG 100 unit SQ PRN PRN 04/13/21 06/28/22 Unknown History Flexpen] Levothyroxine [Synthroid] 112 mcg PO QAM 04/13/21 06/28/22 Unknown History Lisinopril/Hydrochlorothiazide 1 tab PO QDAY 04/13/21 06/28/22 Unknown History [Zestoretic 20-12.5 mg] [place] Carbonate 600 mg PO QHS 04/13/21 06/28/22 Unknown History [place] Carbonate [Eskalith] 150 mg PO QAM 04/13/21 06/28/22 Unknown History Lurasidone [Latuda] 40 mg QHS 04/13/21 06/28/22 Unknown History Oxybutynin Chloride [Ditropan Xl] 15 mg PO QDAY 04/13/21 06/28/22 Unknown History Semaglutide [Ozempic] 1 unit SQ 1XW 04/13/21 06/28/22 Unknown History Venlafaxine HCl [Venlafaxine HCl 150 mg DAILY 04/13/21 06/28/22 Unknown History ER] buPROPion SR [Wellbutrin SR] 100 mg PO DAILY 04/13/21 06/28/22 Unknown History Doxycycline Hyclate [Doxycycline 100 mg PO Q12HR 7 Days #14 04/14/21 06/28/22 Un known Rx Hyclate TAB] Mirtazapine 15 mg PO QHS #30 07/12/22 Unknown Rx VALPROIC ACID Liq [DepaKENE Liq] 250 mg PO Q6H #1 bottle 07/12/22 Unknown Rx hydrOXYzine PAMOATE [Vistaril] 25 mg PO Q6HR PRN #120 capsule 07/12/22 Unknown Rx Active Medications: Generic Name Dose Route Start Last Admin Trade Name Freq PRN Reason Stop Dose Admin Acetaminophen 650 mg 06/28/22 03:09 Acetaminophen 325 Mg Tab PO Q6H PRN Pain MILD(1-3)/Fever >100.5/MURILLO Acetazolamide 250 mg 07/13/22 10:00 Acetazolamide 500 Mg Vial IV 07/13/22 22:01 Q12HR SHANTHI Albuterol 2.5 mg 07/10/22 19:44 Albuterol 2.5 Mg/3 Ml Nebu IH Q4HRT PRN Shortness Of Breath Albuterol/Ipratropium 1 ampul 07/10/22 21:00 07/13/22 02:25 Ipratropium/Albuterol Sulfate 3 Ml Ampul.Neb IH 1 ampul Q6HRT SHANTHI Administration Lipase/Protease/Amylase 1 each 07/05/22 11:00 Lipase 10,500/Protease 25,000/Amylase 43,750 (Units) Dr [place] FEEDTSEVERO PRN PRN For Clogged Feeding Tube Apixaban 5 mg 07/10/22 10:00 07/12/22 22:25 Apixaban 5 Mg Tab FEEDTUBE 5 mg Q12HR SHANTHI Administration Protocol Atorvastatin Calcium 40 mg 07/05/22 10:38 07/12/22 22:26 Atorvastatin 40 Mg Tab FEEDTUBE 40 mg QHS SHANTHI Administration Dextrose 50 ml 07/12/22 09:00 Dextrose 50% In Water (25gm) 50 Ml Syringe IV Q30MIN PRN Hypoglycemia Protocol Hydrophilic Ointment 1 applic 07/05/22 12:00 Lip Therapy Vaseline TP Q2H PRN Dry Lips Hydroxyzine Pamoate 25 mg 07/11/22 15:00 Hydroxyzine Pamoate 25 Mg Cap PO Q6H PRN Anxiety Insulin Glargine 35 units 07/12/22 22:00 07/12/22 22:25 Insulin Glargine 100 Units/Ml SUB-Q 35 units QHS SHANTHI Administration Insulin Human Lispro 5 unit 07/12/22 11:30 07/12/22 16:48 Insulin Lispro 100 Unit/Ml SUB-Q 5 unit AC SHANTHI Administration Insulin Human Lispro 0 unit 07/12/22 22:00 07/12/22 22:25 Insulin Lispro 100 Unit/Ml SUB-Q 6 unit ACHS SHANTHI Administration Protocol Lansoprazole 30 mg 07/06/22 10:00 07/12/22 09:56 Lansoprazole 30 Mg Solutab FEEDTUBE 30 mg QDAY SHANTHI Administration Levothyroxine Sodium 112 mcg 07/05/22 12:00 07/12/22 09:56 Levothyroxine 112 Mcg Tab FEEDTUBE 112 mcg QAM SHANTHI Administration Mirtazapine 15 mg 07/07/22 22:00 07/12/22 22:26 Mirtazapine 15 Mg Solutab PO 15 mg QHS SHANTHI Administration Multi-Ingred Cream/Lotion/Oil/Oint 1 applic 07/05/22 11:00 Mineral Oil/Petrolatum, White Ophth Oint 3.5 Gm OU Q4H PRN Dry Eye(s) Nicotine 21 mg 07/04/22 15:00 07/12/22 09:56 Nicotine 21 Mg/24 Hr Patch TD 21 mg QDAY SHANTHI Administration Ondansetron HCl 4 mg 06/28/22 03:09 07/12/22 17:46 Ondansetron 4 Mg/2 Ml Inj IV 4 mg Q8H PRN Administration Nausea And Vomiting Senna/Docusate Sodium 1 tab 07/05/22 11:00 07/12/22 22:26 Sennosides/Docusate Sodium 8.6/50 Mg Tab FEEDTUBE 1 tab BID SHANTHI Administration Simple Syrup 15 ml 07/05/22 11:00 Simple Syrup 15 Ml FEEDTUBE PRN PRN Hypoglycemia Simple Syrup 30 ml 07/05/22 11:00 Simple Syrup 15 Ml FEEDTUBE PRN PRN Hypoglycemia Sodium Bicarbonate 325 mg 07/05/22 10:26 Sodium Bicarbonate 325 Mg Tab FEEDTUBE PRN PRN For Clogged Feeding Tube Sodium Chloride 10 ml 06/28/22 10:00 07/12/22 22:26 Sodium Chloride 0.9% 10 Ml Flush Syringe IV 10 ml BID SHANTHI Administration Sodium Chloride 10 ml 06/28/22 03:09 Sodium Chloride 0.9% 10 Ml Flush Syringe IV PRN PRN LINE FLUSH Valproic Acid 250 mg 07/08/22 18:00 07/13/22 06:14 Valproic Acid 250 Mg/5 Ml Oral Liqd FEEDTUBE 250 mg Q6HR SHANTHI Administration
[2022-07-13] MEDS: LANSOPRAZOLE 30 MG SOLUTAB FEEDTUBE SCH (09:56)
[2022-07-13] MEDS: APIXABAN 5 MG TAB FEEDTUBE SCH ×2 (09:57→21:22)
[2022-07-13] MEDS: SENNOSIDES/DOCUSATE SODIUM 8.6/50 MG TAB FEEDTUBE SCH ×2 (09:57→21:23)
[2022-07-13] MEDS: LEVOTHYROXINE 112 MCG TAB FEEDTUBE SCH (09:57)
[2022-07-13] MEDS: INSULIN LISPRO 100 UNIT/ML SUB-Q SCH ×6 (09:57→17:37)
[2022-07-13] MEDS: NICOTINE 21 MG/24 HR PATCH TD SCH (09:57)
--- NOTE | 2022-07-13 13:52 | Progress Note ---
Assessment and Plan - Patient Problems (1) Cardiopulmonary arrest Current Visit: Yes Status: Acute Plan to address problem: Patient was on hall monitor at the time of her respiratory decompensation, no primary cardiac arrhythmias were noted. Possible etiologies has been pulmonary atelectasis, sleep apnea and pulmonary embolism. No likely cardiac etiology. Echocardiogram shows normal left ventricular chamber size and systolic function with ejection fraction 60 to 65%. Conversely, there is moderate dilatation of the right heart chambers, with normal pulmonary artery pressure. (2) Paroxysmal atrial fibrillation Current Visit: Yes Status: Acute Plan to address problem: Patient has paroxysmal atrial fibrillation, with underlying right bundle branch block, findings are chronic. 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 Continue current management. Subjective Date of service: 07/13/22 Principal diagnosis: AHRF; DKA; Hyperkalemia; COPD; ? cellulitis; PVD; STEFFANIE; Morbid obesity; ?JACKLYN Interval history: Patient is comfortable in no acute distress, no new cardiac events reported. On hall monitor, stable sinus rhythm at 83. Objective Vital Signs Temp Pulse Pulse Pulse Resp Resp BP 07/13/22 09:06 80 20 07/13/22 08:00 07/13/22 06:01 64 18 110/62 07/13/22 05:01 66 19 110/62 07/13/22 04:27 64 16 107/56 07/13/22 04:00 64 65 14 107/56 07/13/22 03:20 98.1 F 07/13/22 03:00 64 13 100/56 07/13/22 02:26 07/13/22 02:25 66 17 07/13/22 02:00 64 17 114/60 07/13/22 01:00 68 20 120/59 07/13/22 00:39 99.5 F 07/13/22 00:01 73 16 126/52 07/13/22 00:00 68 65 19 07/12/22 23:20 72 20 130/69 07/12/22 23:00 79 29 H 130/69 07/12/22 22:00 79 25 H 130/64 07/12/22 21:00 76 25 H 129/63 07/12/22 20:31 76 26 H 135/66 07/12/22 20:01 99.7 F H 07/12/22 20:00 78 67 20 135/66 07/12/22 19:27 71 18 07/12/22 19:26 07/12/22 19:00 84 28 H 124/61 07/12/22 18:00 88 29 H 129/66 07/12/22 17:00 76 30 H 166/75 07/12/22 16:45 98.9 F 07/12/22 16:00 67 30 H 145/64 07/12/22 15:59 65 07/12/22 15:56 69 20 07/12/22 15:38 68 16 07/12/22 15:01 75 18 181/95 07/12/22 14:01 77 31 H 138/63 Pulse Ox 07/13/22 09:06 07/13/22 08:00 94 07/13/22 06:01 99 07/13/22 05:01 97 07/13/22 04:27 98 07/13/22 04:00 99 07/13/22 03:20 07/13/22 03:00 96 07/13/22 02:26 99 07/13/22 02:25 07/13/22 02:00 99 07/13/22 01:00 100 07/13/22 00:39 07/13/22 00:01 99 07/13/22 00:00 95 07/12/22 23:20 99 07/12/22 23:00 96 07/12/22 22:00 95 07/12/22 21:00 93 07/12/22 20:31 94 07/12/22 20:01 07/12/22 20:00 95 07/12/22 19:27 07/12/22 19:26 93 07/12/22 19:00 93 07/12/22 18:00 86 07/12/22 17:00 94 07/12/22 16:45 07/12/22 16:00 93 07/12/22 15:59 07/12/22 15:56 95 07/12/22 15:38 07/12/22 15:01 83 L 07/12/22 14:01 90 - Physical Examination General: No Apparent Distress HEENT: Positive: PERRL Neck: Positive: neck supple Cardiac: Positive: Reg Rate and Rhythm Lungs: Positive: Decreased Breath Sounds Neuro: Positive: Weakness (Generalized lethargy) Abdomen: Positive: Soft Skin: Positive: Clear Extremities: Absent: edema - Labs and Meds Comprehensive Metabolic Panel 07/13/22 Range/Units 04:03 Sodium 148 H (137-145) mmol/L Potassium 4.6 (3.6-5.0) mmol/L Chloride 103.1 (98-107) mmol/L Carbon Dioxide 40 H (22-30) mmol/L BUN 15 (7-17) mg/dL Creatinine 0.9 (0.6-1.2) mg/dL Glucose 145 H (65-100) mg/dL Calcium 9.6 (8.4-10.2) mg/dL - Allied health notes Allied health notes reviewed: nursing
--- NOTE | 2022-07-13 14:14 | Progress Note ---
Assessment and Plan Assessment and plan: This is a 52-year-old female with known past medical history of type 2 diabetes mellitus, hypertension, Nicotine dependence, COPD, PE/DVT was on Eliquis at home, medical noncompliance, and bipolar disorder intially admitted for DKA, STEFFANIE, and extensive BLE DVT s/p DKA protocol and bilateral caval iliofemoral thrombectomy. Patient was transferred back to the ICU on 07/05 s/p Cardiac Arrest with ROSC. Hospital Course to Date: 06/28: Mentation improved, denied any abdominal pain, no nausea/vomiting. BG and anio gap still elevated. Continue insulin gtt and IVF resuscitation per protocol. Monitor and replace electrolytes as needed, serial Labs ordered. Transition to subQ once gap is closed. BLE ischemia noted, extremities are purple and cool to touch, palpable pedal pulses appreciated. Patient reported that she has a history of PE/DVT on Eliquis but she admitted that she has not been complaints with any of her medications for 3 days. 06/29: Anion Gap still greater than 20, and CO2 15 this am. 1amp of bcarb given, continue Insulin gtt and IVF resuscitation per protocol. repeat BMP ordered, will transition to subQ once gap is closed. BLE doppler noted with extensive BLE DVT, patient remains on the heparin gtt. Patient reported she was on PO Eliquis at home and had a IVF filter placed. Vascular Surgery is also following, appreciate recommendations. Hyponatremia improving, appreciate Nephrology's recs. 06/30: Remains stable. Still on the DKA protocol, BG level has been less than 200s for over 24hrs, anion gap still in the 20s this am, probably due to STEFFANIE. Will transition patient to Subq insulin. Patient remains on the heparin gtt. BLE is unchanged, CHRISTOPHER pascual applied. Per vascular Surgery, possible interventions/thrombectomy once the patient is stabilized. 07/01: Transition to subQ insulin yesteday. Patient remains stable, tolerating PO intake. Insulin regimen adjusted for hyperglycemia, continue BG check ACHS and IVF hydration for now. Hyponatremia is improving, nephrology is following. Patient remains on heparin gtt per protocol for BLE ischemia. Possible interventions/thrombectomy tomorrow per Vascular Surgery. 07/02: Patient seen and examined at the bedside. Remains stable on RA, VSS. Yesterday was transitioned to SubQ insulin, tolerating PO intake. BLE ischemia is unchanged with palpable pedal pulses. CHRISTOPHER Hose applied per Vascular Surgery. Discussed with vascular surgery today they are going to proceed with bilateral thrombectomy. We will continue on heparin drip at this time. Education provided to the patient on blood sugar control. Compliance discussion also had for 15 minutes counseling. Anticipate discharge in 24 to 48 hours postprocedure 07/03: Patient underwent thrombectomy of bilateral caval iliofemoral DVTs by vascular surgery on 07/02/2022. Patient tolerated the procedure well 07/04: No acute events overnight. 07/05: Cardiac arrest. Transferred to ICU. PICC line placed. Levophed, vasopressin, phenylephrine, intubated on ventilatory support. A-line placed 07/06: This morning patient was placed on CPAP trial which he failed, patient was started and titrated off. No changes to mental status. Echocardiogram read which showed no right heart strain. BUN/creatinine are increasing but we will continue to monitor. Given 1 dose of vancomycin and cefepime given leukocytosis and febrile illness. Bicarbonate drip discontinued. 07/07: Patient was placed on CPAP trial which he failed due to tachypnea. Decreased her insulin regimen due to hypoglycemia. 07/08: No acute events reported overnight, remains on propofol. RT to trial CPAP. Small PE noted on CTA chest which vascular surgery stated would not require intervention and would typically have minimal to no symptoms. 07/09: KARINA overnight. Awake and appropriate, following commands. Tolerating PSV trial, plan for possible extubation per CCM. Hyperglycemic this am, SSI and Lantus adjusted. Repeat BLE doppler noted, no evidence of DVT, however positive acute superficial thrombosus in BLE. No intervention warranted at this time per Vascular Surgery, continue PO Eliquis. 07/10: S/p extubation, increased O2 supplemenation this am with tachypnea and increased WOB. BUL crackles auscultated, CXR is with increased opacitie Lt greater than Rt. 40mg on IV lasix administered, patient placed on Bipap. Keep patient NPO, insert DHT for meds and enteral nutrition. FWF added for hypernatremia. 07/11: Tolerating HHFL at 60% & 25L this am. Responded well to IV lasix, this am CXR with showed some improvement. Additional IV lasix today, will continue to monitor for response. Continue Bipap at night and wean O2 supplementation as tolerated. Encourage IS and mobility with PT. Qhs Lantus adjusted for persistent hyperglycemia. Continue FWF for hypernatremia. Advance TF as tolerated. 07/12: Respiratory status continue to improve. Remains on HHFL on 55% and 25L, continue to wean O2 as tolerated and Bipap at night. Speech cleared patient for pureed and honey thick liquid. Patient is toleration PO intake, enteral nutrition and DHT discontinued. Still with persistent hyperglycemia, qHs Lantus adjusted and prandial insulin added, continue BG check Q4hrs. Encourage PO hydration for hypernatremia. Monitor and replace electrolytes as needed, continue to trend BMP. 07/13: Patient continues to management with high flow oxygen down to 45% and 30 L. Continue to use BiPAP at night as tolerated. She is tolerating diet at this time. Continue monitoring her blood sugar and adjust electrolytes as needed. Still with noted hyponatremia. Prognosis remains guarded Neuro: h/o medical noncompliance, bipolar disorder -Psych consulted, appreciate recommendations -Reorientation as needed -Maintain sleep-wake cycle -As needed analgesia -Per psych: Haldol, Depakote -Bilateral wrist restraints for safety Cardiac: s/p cardiac arrest on 07/05, h/o hypertension, HLD -Cardiology consulted, appreciate recommendations -Blood pressure monitoring per protocol -S/p vasopressor support with Levophed, pheynlepinephrine, vasopressin -MAP goal greater than 65 -Hold home hypertensive regimen of lisinopril and nifedipine -Continue home fenofibrate -Home medications: Lisinopril/hydrochlorothiazide 25/12.5 p.o. daily, f enofibrate 1 consistently grams daily -Echocardiogram shows LVEF 60 to 65%, RVSP 20 mmHg, no RV strain Respiratory: Acute hypoxic respiratory failure -CCM consulted, appreciate recommendations -Intubated on 06/04. s/p extubation on 07/09 -s/p X2 days of IV lasix -On HHFL at 55% and 25L -Repeat CXR with some improvement this am -Continue Bipap at night and wean O2 supplementation as tolerated. -Encourage IS and mobility with PT -Continue SPO2 monitoring for SPO2 goal above 92% GI: Morbid obese, moderate protein calorie malnutrition,Dysphagia -Speech cleared patient for pureed and honey thick diet -Patient is tolerating PO intake, Enteral nutrition D/C -NTR consulted for tube feedings -Speech on consult : Acute kidney injury likely secondary to vasomotor nephropathy (resolved), Hypernatremia -Nephrology consulted, appreciate recommendations -Encourage PO hydration -Monitor intake and output -Renally dose medications -Avoid nephrotoxic medications -Trend BMP ID: Bilateral calf ulcers -General surgery consulted, appreciate recommendations -WOCN -Wound care per nursing -Antibiotic therapy with cefepime/vancomycin x1 -f/u blood culture -Monitor WBC and temperature curve Endo: Diabetes Mellitus with hyperglycemia s/p DKA, hypothyroidism -06/28 hemoglobin A1c 9.7 -SSI and lantus adjusted, Prandial added -Continue home Synthroid -Avoid hypoglycemia -Home regimen: Jardiance 5 mg daily, glimepiride 4 mg twice daily, Latuda 40 mg nightly, Ozempic 1 unit SQ per week Heme: Acute PE, Acute DVT h/o chronic right lower extremity DVT on Eliquis s/p IVC filter -Bilateral lower extremity Doppler ultrasound revealed bilateral lower extremity occlusive DVT with extension to IVC filter -07/07 CTA chest showed few small subsegmental right lower lobe and single distal small segmental right lower lobe pulmonary embolism, consolidation of the left lower lobe -Bilateral lower extremity ultrasound pending -Per vascular surgery minimal thrombus burden, unlikely to represent a cause of acute respiratory arrest, this would typically have minimal to no symptoms, no evidence of significant pulmonary emboli which would require intervention -S/p thrombectomy on 07/02 -s/p Heparin drip, now on Eliquis p.o. -Trend CBC -Transfuse hemoglobin less than 7 -SCDs to BLE while in bed The high probability of a clinically significant, sudden or life threatening deterioration of the [multiple] system(s) required my full and direct attention, intervention and personal management. The aggregate critical care time was [60] minutes. This time is in addition to time spent performing reported procedures but includes the following: [x] Data Review and interpretation [x] Patient assessment and monitoring of vital signs [x] Documentation [x] Medication orders and management Disposition Plan: ICU Total Time Spent with Patient (Minutes): 60 History Interval history: Patient seen and examined, no new complaints. Remains on high flow oxygen. Family at bedside today. Hospitalist Physical - Physical exam Narrative exam: General appearance: Present: Mild respiratory distress remains on high flow oxygen, well-nourished, obese - EENT Eyes: Present: PERRL, EOM intact ENT: hearing intact, other (Dry oral mucosa) - Neck Neck: Present: normal ROM - Respiratory Respiratory effort: normal Respiratory: bilateral: rhonchi, wheezing - Cardiovascular Rhythm: regular Heart Sounds: Present: S1 & S2 - Extremities Extremities: no ischemia, pulses intact, pulses symmetrical, abnormal (BLE dressings, Christopher hose stockings present) Extremity abnormal: edema - Peripheral Assessment Generalized Edema Type: Non-pitting Edema Degree: 3+ Capillary Refill: < 3 seconds Skin Temperature: Warm Peripheral Pulses: within normal limits - Abdominal General gastrointestinal: soft, non-distended, normal bowel sounds - Integumentary Integumentary: Present: warm, dry - Psychiatric Psychiatric: appropriate mood/affect, cooperative - Neurologic Neurologic: moves all extremities - Allied Health Allied health notes reviewed: nursing, case management - Constitutional Vitals: Temp Pulse Resp BP Pulse Ox 98.1 F 80 20 110/62 94 07/13/22 03:20 07/13/22 09:06 07/13/22 09:06 07/13/22 06:01 07/13/22 08:00 General appearance: Present: no acute distress, well-nourished, obese HEART Score - HEART Score Troponin: Troponin T 0.080 ng/mL (0.00-0.029) H 06/27/22 20:48 Results - Labs CBC & Chem 7: 07/12/22 04:18 07/13/22 04:03 Labs: Laboratory Last Values WBC 8.3 K/mm3 (4.5-11.0) 07/12/22 04:18 RBC 3.44 M/mm3 (3.65-5.03) L 07/12/22 04:18 Hgb 10.3 gm/dl (10.1-14.3) 07/12/22 04:18 Hct 32.4 % (30.3-42.9) 07/12/22 04:18 MCV 94 fl (79-97) 07/12/22 04:18 MCH 30 pg (28-32) 07/12/22 04:18 MCHC 32 % (30-34) 07/12/22 04:18 RDW 14.5 % (13.2-15.2) 07/12/22 04:18 Plt Count 198 K/mm3 (140-440) 07/12/22 04:18 Lymph % (Auto) 22.2 % (13.4-35.0) 07/12/22 04:18 [place] % (Auto) 7.4 % (0.0-7.3) H 07/12/22 04:18 Eos % (Auto) 0.6 % (0.0-4.3) 07/12/22 04:18 Baso % (Auto) 0.9 % (0.0-1.8) 07/12/22 04:18 Lymph # (Auto) 1.8 K/mm3 (1.2-5.4) 07/12/22 04:18 [place] # (Auto) 0.6 K/mm3 (0.0-0.8) 07/12/22 04:18 Eos # (Auto) 0.0 K/mm3 (0.0-0.4) 07/12/22 04:18 Baso # (Auto) 0.1 K/mm3 (0.0-0.1) 07/12/22 04:18 Add Manual Diff Complete 07/05/22 Unknown Total Counted 100 07/05/22 Unknown Seg Neutrophils % 68.9 % (40.0-70.0) 07/12/22 04:18 Seg Neuts % (Manual) 91.0 % (40.0-70.0) H 07/05/22 Unknown Band Neutrophils % 0 % 07/05/22 Unknown Lymphocytes % (Manual) 1.0 % (13.4-35.0) L 07/05/22 Unknown Reactive Lymphs % (Man) 0 % 07/05/22 Unknown Monocytes % (Manual) 4.0 % (0.0-7.3) 07/05/22 Unknown Eosinophils % (Manual) 0 % (0.0-4.3) 07/05/22 Unknown Basophils % (Manual) 0 % (0.0-1.8) 07/05/22 Unknown Metamyelocytes % 3.0 % 07/05/22 Unknown Myelocytes % 1.0 % 07/05/22 Unknown Promyelocytes % 0 % 07/05/22 Unknown Blast Cells % 0 % 07/05/22 Unknown Nucleated RBC % Not Reportable 07/05/22 Unknown Seg Neutrophils # 5.7 K/mm3 (1.8-7.7) 07/12/22 04:18 Seg Neutrophils # Man 15.0 K/mm3 (1.8-7.7) H 07/05/22 Unknown Band Neutrophils # 0.0 K/mm3 07/05/22 Unknown Lymphocytes # (Manual) 0.2 K/mm3 (1.2-5.4) L 07/05/22 Unknown Abs React Lymphs (Man) 0.0 K/mm3 07/05/22 Unknown Monocytes # (Manual) 0.7 K/mm3 (0.0-0.8) 07/05/22 Unknown Eosinophils # (Manual) 0.0 K/mm3 (0.0-0.4) 07/05/22 Unknown Basophils # (Manual) 0.0 K/mm3 (0.0-0.1) 07/05/22 Unknown Metamyelocytes # 0.5 K/mm3 07/05/22 Unknown Myelocytes # 0.2 K/mm3 07/05/22 Unknown Promyelocytes # 0.0 K/mm3 07/05/22 Unknown Blast Cells # 0.0 K/mm3 07/05/22 Unknown WBC Morphology Not Reportable 07/05/22 Unknown WBC Morphology TNR 07/05/22 Unknown Hypersegmented Neuts Not Reportable 07/05/22 Unknown Hyposegmented Neuts Not Reportable 07/05/22 Unknown Hypogranular Neuts Not Reportable 07/05/22 Unknown Smudge Cells Not Reportable 07/05/22 Unknown Toxic Granulation Not Reportable 07/05/22 Unknown Toxic Vacuolation Not Reportable 07/05/22 Unknown Dohle Bodies Not Reportable 07/05/22 Unknown Pelger-Huet Anomaly Not Reportable 07/05/22 Unknown Jesús Rods Not Reportable 07/05/22 Unknown Platelet Estimate Consistent w auto 07/05/22 Unknown Clumped Platelets Few 07/05/22 Unknown Plt Clumps, EDTA Not Reportable 07/05/22 Unknown Large Platelets Not Reportable 07/05/22 Unknown Giant Platelets Not Reportable 07/05/22 Unknown Platelet Satelliting Not Reportable 07/05/22 Unknown Plt Morphology Comment Not Reportable 07/05/22 Unknown RBC Morphology Normal 07/05/22 Unknown Dimorphic RBCs Not Reportable 07/05/22 Unknown Polychromasia Not Reportable 07/05/22 Unknown Hypochromasia Not Reportable 07/05/22 Unknown Poikilocytosis Not Reportable 07/05/22 Unknown Anisocytosis Not Reportable 07/05/22 Unknown Microcytosis Not Reportable 07/05/22 Unknown Macrocytosis Not Reportable 07/05/22 Unknown Spherocytes Not Reportable 07/05/22 Unknown Pappenheimer Bodies Not Reportable 07/05/22 Unknown Sickle Cells Not Reportable 07/05/22 Unknown Target Cells Not Reportable 07/05/22 Unknown Tear Drop Cells Not Reportable 07/05/22 Unknown Ovalocytes Not Reportable 07/05/22 Unknown Helmet Cells Not Reportable 07/05/22 Unknown [place] Bodies Not Reportable 07/05/22 Unknown [place] Rings Not Reportable 07/05/22 Unknown [place] Cells Not Reportable 07/05/22 Unknown Bite Cells Not Reportable 07/05/22 Unknown Crenated Cell Not Reportable 07/05/22 Unknown Elliptocytes Not Reportable 07/05/22 Unknown Acanthocytes (Spur) Not Reportable 07/05/22 Unknown Rouleaux Not Reportable 07/05/22 Unknown Hemoglobin C Crystals Not Reportable 07/05/22 Unknown Schistocytes Not Reportable 07/05/22 Unknown Malaria parasites Not Reportable 07/05/22 Unknown Ellis Bodies Not Reportable 07/05/22 Unknown Hem Pathologist Commnt No 07/05/22 Unknown PT 17.3 Sec. (12.2-14.9) H 07/02/22 20:28 INR 1.26 (0.87-1.13) H 07/02/22 20:28 APTT 24.1 Sec. (24.2-36.6) L 07/02/22 20:28 Heparin Anti-Xa Level 0.21 U.I./ml (0.3-0.7) L 07/02/22 08:12 ABG pH 7.352 pH Units (7.350-7.450) 07/09/22 11:35 ABG pCO2 57.9 mm Hg 07/09/22 11:35 ABG pO2 74.0 mm Hg (80.0-90.0) L 07/09/22 11:35 ABG HCO3 31.4 mmol/L (20.0-26.0) H 07/09/22 11:35 ABG O2 Saturation 95.2 % (95.0-99.0) 07/09/22 11:35 ABG O2 Content 14.6 (0.0-44) 07/09/22 11:35 ABG Base Excess 4.6 mmol/L (-2.0-3.0) H 07/09/22 11:35 ABG Hemoglobin 11.1 gm/dl (12.0-16.0) L 07/09/22 11:35 ABG Carboxyhemoglobin 1.8 % (0.0-5.0) 07/09/22 11:35 ABG Methemoglobin 0.4 % (0.0-1.5) 07/09/22 11:35 Oxyhemoglobin 93.1 % (95.0-99.0) L 07/09/22 11:35 FiO2 40 % 07/09/22 11:35 Sodium 148 mmol/L (137-145) H 07/13/22 04:03 Potassium 4.6 mmol/L (3.6-5.0) 07/13/22 04:03 Chloride 103.1 mmol/L (98-107) 07/13/22 04:03 Carbon Dioxide 40 mmol/L (22-30) H 07/13/22 04:03 Anion Gap 10 mmol/L 07/13/22 04:03 BUN 15 mg/dL (7-17) 07/13/22 04:03 Creatinine 0.9 mg/dL (0.6-1.2) 07/13/22 04:03 Estimated GFR > 60 ml/min 07/13/22 04:03 BUN/Creatinine Ratio 17 % 07/13/22 04:03 Glucose 145 mg/dL (65-100) H 07/13/22 04:03 POC Glucose 191 mg/dL (70-105) H 07/13/22 05:19 Hemoglobin A1c 9.7 % (4-6) H 06/28/22 20:31 Lactic Acid 1.90 mmol/L (0.7-2.0) 06/29/22 10:47 Calcium 9.6 mg/dL (8.4-10.2) 07/13/22 04:03 Phosphorus 3.00 mg/dL (2.5-4.5) D 07/13/22 04:03 Magnesium 2.10 mg/dL (1.7-2.3) 07/13/22 04:03 Total Bilirubin 0.30 mg/dL (0.1-1.2) 07/12/22 04:18 AST 13 units/L (5-40) 07/12/22 04:18 ALT 19 units/L (7-56) 07/12/22 04:18 Alkaline Phosphatase 82 units/L (35-129) 07/12/22 04:18 Troponin T 0.080 ng/mL (0.00-0.029) H 06/27/22 20:48 NT-Pro-B Natriuret Pep 4137 pg/mL (0-900) H 06/27/22 20:48 Total Protein 5.5 g/dL (6.3-8.2) L 07/12/22 04:18 Albumin 2.6 g/dL (3.9-5) L 07/12/22 04:18 Albumin/Globulin Ratio 0.9 % 07/12/22 04:18 Triglycerides 349 mg/dL (2-149) H 06/27/22 20:48 Cholesterol 156 mg/dL (50-199) 06/27/22 20:48 LDL Cholesterol Direct 37 mg/dL (50-130) L 06/27/22 20:48 HDL Cholesterol 38 mg/dL (40-59) L 06/27/22 20:48 Cholesterol/HDL Ratio 4.10 % 06/27/22 20:48 Procalcitonin 2.51 ng/mL (<0.15) 06/29/22 10:47 PTH Intact 382.4 pg/mL (15-65) H 06/29/22 04:21 Urine Creatinine 85.4 mg/dL (0.1-20.0) H 06/28/22 08:10 Protein/Creatinin Ratio 0.57 06/28/22 08:10 Urine Sodium 10 mmol/L 06/28/22 08:10 Urine Total Protein 49 mg/dL (5-11.8) H 06/28/22 08:10 Urine Opiates Screen Negative 07/11/22 05:00 Urine Methadone Screen Negative 07/11/22 05:00 Ur Barbiturates Screen Negative 07/11/22 05:00 Ur Phencyclidine Scrn Negative 07/11/22 05:00 Ur Amphetamines Screen Negative 07/11/22 05:00 U Benzodiazepines Scrn Negative 07/11/22 05:00 Urine Cocaine Screen Negative 07/11/22 05:00 U Marijuana (THC) Screen Negative 07/11/22 05:00 Drugs of Abuse Note Disclamer 07/11/22 05:00 Microbiology: Microbiology 07/07/22 14:29 Peripheral/Venous Blood Culture - Final NO GROWTH AFTER 5 DAYS 07/07/22 14:29 Peripheral/Venous Blood Culture - Final NO GROWTH AFTER 5 DAYS Tian/IV: Voiding Method External Female Catheter Active Medications - Current Medications Current Medications: Generic Name Dose Route Start Last Admin Trade Name Freq PRN Reason Stop Dose Admin Acetaminophen 650 mg 06/28/22 03:09 07/13/22 13:49 Acetaminophen 325 Mg Tab PO 650 mg Q6H PRN Administration Pain MILD(1-3)/Fever >100.5/MURILLO Acetazolamide 250 mg 07/13/22 10:00 Acetazolamide 500 Mg Vial IV 07/13/22 22:01 Q12HR SHANTHI Albuterol 2.5 mg 07/10/22 19:44 Albuterol 2.5 Mg/3 Ml Nebu IH Q4HRT PRN Shortness Of Breath Albuterol/Ipratropium 1 ampul 07/10/22 21:00 07/13/22 09:04 Ipratropium/Albuterol Sulfate 3 Ml Ampul.Neb IH 1 ampul Q6HRT SHANTHI Administration Lipase/Protease/Amylase 1 each 07/05/22 11:00 Lipase 10,500/Protease 25,000/Amylase 43,750 (Units) Dr [place] FEEDTUBE PRN PRN For Clogged Feeding Tube Apixaban 5 mg 07/10/22 10:00 07/13/22 09:57 Apixaban 5 Mg Tab FEEDTUBE 5 mg Q12HR SHANTHI Administration Protocol Atorvastatin Calcium 40 mg 07/05/22 10:38 07/12/22 22:26 Atorvastatin 40 Mg Tab FEEDTUBE 40 mg QHS SHANTHI Administration Dextrose 50 ml 07/12/22 09:00 Dextrose 50% In Water (25gm) 50 Ml Syringe IV Q30MIN PRN Hypoglycemia Protocol Hydrophilic Ointment 1 applic 07/05/22 12:00 Lip Therapy Vaseline TP Q2H PRN Dry Lips Hydroxyzine Pamoate 25 mg 07/11/22 15:00 Hydroxyzine Pamoate 25 Mg Cap PO Q6H PRN Anxiety Insulin Glargine 35 units 07/12/22 22:00 07/12/22 22:25 Insulin Glargine 100 Units/Ml SUB-Q 35 units QHS SHANTHI Administration Insulin Human Lispro 5 unit 07/12/22 11:30 07/13/22 13:41 Insulin Lispro 100 Unit/Ml SUB-Q 5 unit AC SHANTHI Administration Insulin Human Lispro 0 unit 07/12/22 22:00 07/13/22 13:44 Insulin Lispro 100 Unit/Ml SUB-Q 6 unit ACHS SHANTHI Administration Protocol Lansoprazole 30 mg 07/06/22 10:00 07/13/22 09:56 Lansoprazole 30 Mg Solutab FEEDTUBE 30 mg QDAY SHANTHI Administration Levothyroxine Sodium 112 mcg 07/05/22 12:00 07/13/22 09:57 Levothyroxine 112 Mcg Tab FEEDTUBE 112 mcg QAM SHANTHI Administration Mirtazapine 15 mg 07/07/22 22:00 07/12/22 22:26 Mirtazapine 15 Mg Solutab PO 15 mg QHS SHANTHI Administration Multi-Ingred Cream/Lotion/Oil/Oint 1 applic 07/05/22 11:00 Mineral Oil/Petrolatum, White Ophth Oint 3.5 Gm OU Q4H PRN Dry Eye(s) Nicotine 21 mg 07/04/22 15:00 07/13/22 09:57 Nicotine 21 Mg/24 Hr Patch TD 21 mg QDAY SHANTHI Administration Ondansetron HCl 4 mg 06/28/22 03:09 07/12/22 17:46 Ondansetron 4 Mg/2 Ml Inj IV 4 mg Q8H PRN Administration Nausea And Vomiting Senna/Docusate Sodium 1 tab 07/05/22 11:00 07/13/22 09:57 Sennosides/Docusate Sodium 8.6/50 Mg Tab FEEDTUBE 1 tab BID SHANTHI Administration Simple Syrup 15 ml 07/05/22 11:00 Simple Syrup 15 Ml FEEDTUBE PRN PRN Hypoglycemia Simple Syrup 30 ml 07/05/22 11:00 Simple Syrup 15 Ml FEEDTUBE PRN PRN Hypoglycemia Sodium Bicarbonate 325 mg 07/05/22 10:26 Sodium Bicarbonate 325 Mg Tab FEEDTUBE PRN PRN For Clogged Feeding Tube Sodium Chloride 10 ml 06/28/22 10:00 07/13/22 09:57 Sodium Chloride 0.9% 10 Ml Flush Syringe IV 10 ml BID SHANTHI Administration Sodium Chloride 10 ml 06/28/22 03:09 Sodium Chloride 0.9% 10 Ml Flush Syringe IV PRN PRN LINE FLUSH Valproic Acid 250 mg 07/08/22 18:00 07/13/22 13:41 Valproic Acid 250 Mg/5 Ml Oral Liqd FEEDTUBE 250 mg Q6HR SHANTHI Administration Nutrition/Malnutrition Assess - Dietary Evaluation Nutrition/Malnutrition Findings: Nutrition Notes Start: 06/28/22 11:39 Freq: Status: Active Protocol: Document 07/10/22 14:11 CHRISTAL (Rec: 07/10/22 15:42 CHRISTAL [id number]) Nutrition Notes Initial or Follow up Reassessment Current Diagnosis COPD,Diabetes,Hypertension Other Pertinent Diagnosis S/p PEA/ROSC, s/p STEFFANIE, s/p DKA , DVT s/p LE Angioplasty. Current Diet TF-Glucerna 1.2 Prabhjot @ 55 ml/hr (from D 07/10). Labs/Tests 07/10: Na 148, CO2 32, BUN 31, Glu 253. Pertinent Medications 07/10: Humalog 3U, Levothyroxine, others nutritionally unremarkable. Height 5 ft 4 in Weight 139.6 kg [place] Body Weight (kg) 54.54 BMI 52.8 Weight change and time frame No body weight change reported in 12 days. Weight Status Morbidly Obese Subjective/Other Information RD consult for write/manage TF assessment. Formula has to change, Pt extubated on 07/09. Pt on Nasal Cannula, O2 saturation @ 94%, according to Physical Assessment History notes. 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 Patient is at profound risk for PO. Recommend NPO and no water or icechips. Will continue to follow. Informed the patient's nurse. - END OF NOTE. Percent of energy/protein needs met: Prescribed TF-Glucerna 1.2 Prabhjot @ 55 ml/hr provides for energy/protein needs (1,570 Kcal/79 g) during LOS, 102% Kcal; 100% AA. Burn Absent Trauma Absent GI Symptoms None Difficulty In Swallowing Food Allergy No Skin Integrity/Comment Bilateral LE redness/echimosis . Current % PO Other Minimum of two criteria No Fluid Accumulation N/A Reduced Chamber Magistrate Strength N/A (non-severe) Protein-Calorie Malnutrition N\A #2 Nutrition Diagnosis Inadequate oral intake Comments: Pt extubated on 07/09, according to Progress notes. 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 Patient is at profound risk for PO. Recommend NPO and no water or icechips. Will continue to follow. Informed the patient's nurse. - END OF NOTE. Diagnosis Progress(for reassessment Continues documentation) #1 Nutrition Diagnosis Overweight/obesity Diagnosis Progress(for reassessment Continues documentation) Is patient on ventilator? No Is Patient Ambulatory and/or Out of Bed No [facility] 2392.512 Kcal/Kg value to use for calculation 11 Approximate Energy Requirements Using 1536 kcal/Kg Calculation Used for Recommendations Kcal/kg Additional Notes Protein: 0.8-1.2 g/Kg AdjBW; 77-115 g/day. Fluids: 1 ml/Kcal, or as per MD. Nutrition Intervention Nutrition Support: Change formula to TF-Glucerna 1.2 Prabhjot @ 55 ml/hr. Start with Trickle feed per MD . Flush: 80 ml water Q4 hr, or as per MD. Kcal 1,570 Protein (gm) 79 Carbohydrates (gm) 150 Fat (gm) 79 Fluid (mL) 1,053 Fiber (gm) 21 % RDI: 102% Kcal; 100% AA. Goal #1 Provide at least 75% of energy /protein needs through Enteral Feeding during LOS. Goal #2 Adjust the dietary intervention to better serve Pt's energy/protein needs and clinical conditions during LOS . 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
--- NOTE | 2022-07-13 16:10 | Progress Note ---
Assessment and Plan 52-year-old -[place] female with known history of diabetes mellitus, hypertension, COPD presenting in the emergency room today complaining of shortness of breath. She has also had occasional palpitations. Patient has history of DVT and PE. Patient is on Eliquis at home. Patient denies any fever or chills, no headache or dizziness, no diaphoresis. Patient has had some nausea but no vomiting, no abdominal pain and no diarrhea. Patient has history of smoking 1 pack x 30 years. Counseled to stop smoking. Denies alcohol or drug abuse. Worked in [employer]. Not . No children. Allergic to CIPRO and Ampicillin. Work-up in the emergency room ,Significant findings on the labs includes potassium level of 6.4, sodium level of 121, anion gap of 40, BUN of 54 and creatinine of 2.5. Blood glucose was 562. Chest x-ray shows no acute findings. Patient being admitted for diabetic ketoacidosis. She has been started on IV fluid and insulin drip. Patient improved. transfered to medical floor. Patient transfered back to ICU 07/05/22 for cardiac arrest with ROSC. Patient transfered back to IMCU to day 07/13/22 Patient is Morbidly Obese, awake. Patient is resting on Vapotherm, FIO2 40% and O2 saturation running 94%. BIPAP stand by in the room. BIPAP mostly using at night time.No acute respiratory distress. Denies chest pain, shortness of breath or cough. ABG on FIO2 40%. ABG pH 7.352 pH Units (7.350-7.450) 07/09/22 11:35 ABG pCO2 57.9 mm Hg 07/09/22 11:35 ABG pO2 74.0 mm Hg (80.0-90.0) L 07/09/22 11:35 ABG O2 Saturation 95.2 % (95.0-99.0) 07/09/22 11:35 Patient afebrile. No leukocytosis. Blood pressure 164/73, Pulse 65, Respirations 26. Chest xray obtained 06/27/22 reported No acute findings. Chest xray obtained 07/11/22 reported Improving pleuroparenchymal disease in the left mid to lower hemithorax. Patient is on Apixaba, Albuterol/atrovent aerosol treatments, Prevacid and Nicotine patch. I spent critical care time of 50 minutes, talking to the patient, review the chart, Examine the patient, review imaging, review lab results, talking to nursing staff and respiratory therapy and work up plan of treatment in this critically ill patient. - Patient Problems (1) Cardiac arrhythmia Current Visit: Yes Status: Acute Plan to address problem: Management as per cardiology. (2) Acute metabolic encephalopathy Current Visit: No Status: Acute Plan to address problem: Management as per primary care. (3) COPD (chronic obstructive pulmonary disease) Current Visit: No Status: Acute Plan to address problem: Vapotherm, FIO2 40%. BIPAP during night time and Prn for shortness of breath during day time. Recommend Xopenex and atrovent aerosol treatments q 8 hours Prn for shortness of breath. Brovanna/Budesonide aerosol treatments q 12 hours. Continue Apixaban. Continue Prevacid. Recommend PFTs as out patient. (4) DKA (diabetic ketoacidoses) Current Visit: No Status: Acute Plan to address problem: Improved. To days Anion gap is 10. Management as per primary care. (5) Hypertension Current Visit: No Status: Acute Plan to address problem: Management as per primary care. (6) Renal insufficiency Current Visit: No Status: Acute Plan to address problem: Management as per nephrology. (7) History of deep venous thrombosis or pulmonary embolus Current Visit: Yes Status: Acute Plan to address problem: Patient is on Apixaban. . (8) Morbid obesity with BMI of 50.0-59.9, adult Current Visit: Yes Status: Acute Plan to address problem: Recommend to lose weight. Recommend Sleep study as out patient. (9) Sleep apnea in adult Current Visit: Yes Status: Acute Plan to address problem: BIPAP during night time. Sleep study as out patient. Recommend to loose weight. Maintain sleep hygiene. Recommend not drive or operate heavy equipment with sleepiness. Avoid alcohol, sedatives and narcotics. (10) Obesity with alveolar hypoventilation Current Visit: Yes Status: Acute Plan to address problem: Bipap during night time and prn for day time sleepiness . Recommend sleep study as out patient. (11) Paroxysmal atrial fibrillation Current Visit: Yes Status: Acute Plan to address problem: Patient is on Apixaban. Management as per cardiology. (12) Nicotine dependence Current Visit: Yes Status: Acute Plan to address problem: Counseled to stop smokng. Patient is on Nicotine Patch. Subjective Date of service: 07/13/22 Principal diagnosis: AHRF; DKA; Hyperkalemia; COPD; ? cellulitis; PVD; STEFFANIE; Morbid obesity; ?JACKLYN Interval history: 52-year-old -[place] female with known history of diabetes mellitus, hypertension, COPD presenting in the emergency room today complaining of shortness of breath. She has also had occasional palpitations. Patient has history of DVT and PE. Patient is on Eliquis at home. Patient denies any fever or chills, no headache or dizziness, no diaphoresis. Patient has had some nausea but no vomiting, no abdominal pain and no diarrhea. Patient has history of smoking 1 pack x 30 years. Counseled to stop smoking. Denies alcohol or drug abuse. 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 Not . No children. Allergic to CIPRO and Ampicillin. Work-up in the emergency room ,Significant findings on the labs includes potassium level of 6.4, sodium level of 121, anion gap of 40, BUN of 54 and creatinine of 2.5. Blood glucose was 562. Chest x-ray shows no acute findings. Patient being admitted for diabetic ketoacidosis. She has been started on IV fluid and insulin drip. Patient improved. transfered to medical floor. Patient transfered back to ICU 07/05/22 for cardiac arrest with ROSC. Patient transfered back to IMCU to day 07/13/22 Patient is Morbidly Obese, awake. Patient is resting on Vapotherm, FIO2 40% and O2 saturation running 94%. BIPAP stand by in the room. BIPAP mostly using at night time.No acute respiratory distress. Denies chest pain, shortness of breath or cough. ABG on FIO2 40%. ABG pH 7.352 pH Units (7.350-7.450) 07/09/22 11:35 ABG pCO2 57.9 mm Hg 07/09/22 11:35 ABG pO2 74.0 mm Hg (80.0-90.0) L 07/09/22 11:35 ABG O2 Saturation 95.2 % (95.0-99.0) 07/09/22 11:35 Patient afebrile. No leukocytosis. Blood pressure 164/73, Pulse 65, Respirations 26. Chest xray obtained 06/27/22 reported No acute findings. Chest xray obtained 07/11/22 reported Improving pleuroparenchymal disease in the left mid to lower hemithorax. Patient is on Apixaba, Albuterol/atrovent aerosol treatments, Prevacid and Nicotine patch. Objective Vital Signs - 12hr 07/13/22 07/13/22 07/13/22 04:27 05:01 06:01 Pulse Rate 64 66 64 Pulse Rate [ Anterior Throughout] Respiratory 16 19 18 Rate Respiratory Rate [Anterior Throughout] Blood Pressure 107/56 110/62 110/62 O2 Sat by Pulse 98 97 99 Oximetry 07/13/22 07/13/22 07/13/22 07:00 08:00 09:00 Pulse Rate 70 76 82 Pulse Rate [ Anterior Throughout] Respiratory 17 26 H 24 Rate Respiratory Rate [Anterior Throughout] Blood Pressure 122/67 151/59 122/67 O2 Sat by Pulse 100 94 94 Oximetry 07/13/22 07/13/22 07/13/22 09:06 10:00 11:00 Pulse Rate 78 80 Pulse Rate [ 80 Anterior Throughout] Respiratory 26 H 29 H Rate Respiratory 20 Rate [Anterior Throughout] Blood Pressure 136/64 148/65 O2 Sat by Pulse 95 Oximetry 07/13/22 07/13/22 07/13/22 12:00 13:00 14:00 Pulse Rate 79 81 80 Pulse Rate [ Anterior Throughout] Respiratory 35 H 29 H 30 H Rate Respiratory Rate [Anterior Throughout] Blood Pressure 135/66 143/75 139/67 O2 Sat by Pulse 94 96 97 Oximetry Constitutional: no acute distress, alert Eyes: non-icteric ENT: oropharynx moist Neck: supple, no lymphadenopathy, no JVD, other (large circumference) Effort: mildly labored Ascultation: Bilateral: diminished breath sounds, rhonchi Percussion: Bilateral: not dull Cardiovascular: regular rate and rhythm Gastrointestinal: normoactive bowel sounds, non-tender, tender, non-distended Integumentary: rash (shins), other (erythema to shins) Extremities: no cyanosis, pink and warm, no ischemia or petechiae, edema (trace to 1+) Neurologic: normal mental status, non-focal exam (grossly), pupils equal and round, other (pt sleeping) Psychiatric: mood appropriate, affect normal CBC and BMP: 07/12/22 04:18 07/13/22 04:03 ABG, PT/INR, D-dimer: ABG ABG pH 7.352 pH Units (7.350-7.450) 07/09/22 11:35 ABG pCO2 57.9 mm Hg 07/09/22 11:35 ABG pO2 74.0 mm Hg (80.0-90.0) L 07/09/22 11:35 ABG O2 Saturation 95.2 % (95.0-99.0) 07/09/22 11:35 PT/INR, D-dimer PT 17.3 Sec. (12.2-14.9) H 07/02/22 20:28 INR 1.26 (0.87-1.13) H 07/02/22 20:28 Abnormal lab findings: Abnormal Labs 06/27/22 06/27/22 06/27/22 20:48 20:48 23:56 WBC 18.7 H RBC Hgb 15.1 H Hct 47.1 H Plt Count Lymph % (Auto) 6.3 L [place] % (Auto) Lymph # (Auto) [place] # (Auto) 0.9 H Seg Neutrophils % 88.6 H Seg Neuts % (Manual) Lymphocytes % (Manual) Seg Neutrophils # 16.5 H Seg Neutrophils # Man Lymphocytes # (Manual) PT INR APTT Heparin Anti-Xa Level ABG pH ABG pO2 ABG HCO3 ABG O2 Saturation ABG Base Excess ABG Hemoglobin Oxyhemoglobin Sodium 123 L 121 L Potassium 6.9 H* 6.4 H* Chloride 82.4 L 79.7 L Carbon Dioxide 7 L* 8 L* BUN 50 H 54 H Creatinine 2.2 H 2.5 H Glucose 578 H* 562 H* POC Glucose Hemoglobin A1c Calcium Phosphorus 10.40 H Magnesium 2.70 H 2.60 H AST 50 H Troponin T 0.080 H NT-Pro-B Natriuret Pep 4137 H Total Protein Albumin 3.1 L Triglycerides 349 H LDL Cholesterol Direct 37 L HDL Cholesterol 38 L PTH Intact Urine Creatinine Urine Total Protein 06/28/22 06/28/22 06/28/22 01:45 01:58 03:17 WBC RBC Hgb Hct Plt Count Lymph % (Auto) [place] % (Auto) Lymph # (Auto) [place] # (Auto) Seg Neutrophils % Seg Neuts % (Manual) Lymphocytes % (Manual) Seg Neutrophils # Seg Neutrophils # Man Lymphocytes # (Manual) PT INR APTT Heparin Anti-Xa Level ABG pH ABG pO2 ABG HCO3 ABG O2 Saturation ABG Base Excess ABG Hemoglobin Oxyhemoglobin Sodium 120 L Potassium 6.2 H* Chloride 79.1 L Carbon Dioxide 7 L* BUN 55 H Creatinine 2.6 H Glucose 551 H* POC Glucose 573 H 568 H Hemoglobin A1c Calcium 8.1 L Phosphorus Magnesium AST Troponin T NT-Pro-B Natriuret Pep Total Protein Albumin Triglycerides LDL Cholesterol Direct HDL Cholesterol PTH Intact Urine Creatinine Urine Total Protein 06/28/22 06/28/22 06/28/22 03:35 03:35 04:05 WBC RBC Hgb Hct Plt Count Lymph % (Auto) [place] % (Auto) Lymph # (Auto) [place] # (Auto) Seg Neutrophils % Seg Neuts % (Manual) Lymphocytes % (Manual) Seg Neutrophils # Seg Neutrophils # Man Lymphocytes # (Manual) PT INR APTT Heparin Anti-Xa Level ABG pH ABG pO2 ABG HCO3 ABG O2 Saturation ABG Base Excess ABG Hemoglobin Oxyhemoglobin Sodium 121 L Potassium 5.4 H Chloride 84.7 L Carbon Dioxide 7 L* BUN 57 H Creatinine 2.6 H Glucose 486 H POC Glucose 508 H Hemoglobin A1c Calcium 7.7 L Phosphorus 9.20 H Magnesium AST Troponin T NT-Pro-B Natriuret Pep Total Protein Albumin Triglycerides LDL Cholesterol Direct HDL Cholesterol PTH Intact Urine Creatinine Urine Total Protein 06/28/22 06/28/22 06/28/22 05:13 05:40 06:30 WBC RBC Hgb Hct Plt Count Lymph % (Auto) [place] % (Auto) Lymph # (Auto) [place] # (Auto) Seg Neutrophils % Seg Neuts % (Manual) Lymphocytes % (Manual) Seg Neutrophils # Seg Neutrophils # Man Lymphocytes # (Manual) PT INR APTT Heparin Anti-Xa Level ABG pH ABG pO2 ABG HCO3 ABG O2 Saturation ABG Base Excess ABG Hemoglobin Oxyhemoglobin Sodium 124 L Potassium 5.1 H Chloride 86.5 L Carbon Dioxide 13 L BUN 59 H Creatinine 2.6 H Glucose 396 H POC Glucose 443 H 419 H Hemoglobin A1c Calcium 8.0 L Phosphorus Magnesium AST Troponin T NT-Pro-B Natriuret Pep Total Protein Albumin Triglycerides LDL Cholesterol Direct HDL Cholesterol PTH Intact Urine Creatinine Urine Total Protein 06/28/22 06/28/22 06/28/22 07:39 08:10 08:18 WBC RBC Hgb Hct Plt Count Lymph % (Auto) [place] % (Auto) Lymph # (Auto) [place] # (Auto) Seg Neutrophils % Seg Neuts % (Manual) Lymphocytes % (Manual) Seg Neutrophils # Seg Neutrophils # Man Lymphocytes # (Manual) PT INR APTT Heparin Anti-Xa Level ABG pH ABG pO2 ABG HCO3 ABG O2 Saturation ABG Base Excess ABG Hemoglobin Oxyhemoglobin Sodium Potassium Chloride Carbon Dioxide BUN Creatinine Glucose POC Glucose 377 H 390 H Hemoglobin A1c Calcium Phosphorus Magnesium AST Troponin T NT-Pro-B Natriuret Pep Total Protein Albumin Triglycerides LDL Cholesterol Direct HDL Cholesterol PTH Intact Urine Creatinine 85.4 H Urine Total Protein 49 H 06/28/22 06/28/22 06/28/22 09:32 10:46 11:40 WBC RBC Hgb Hct Plt Count Lymph % (Auto) [place] % (Auto) Lymph # (Auto) [place] # (Auto) Seg Neutrophils % Seg Neuts % (Manual) Lymphocytes % (Manual) Seg Neutrophils # Seg Neutrophils # Man Lymphocytes # (Manual) PT INR APTT Heparin Anti-Xa Level ABG pH ABG pO2 ABG HCO3 ABG O2 Saturation ABG Base Excess ABG Hemoglobin Oxyhemoglobin Sodium Potassium Chloride Carbon Dioxide BUN Creatinine Glucose POC Glucose 347 H 313 H 274 H Hemoglobin A1c Calcium Phosphorus Magnesium AST Troponin T NT-Pro-B Natriuret Pep Total Protein Albumin Triglycerides LDL Cholesterol Direct HDL Cholesterol PTH Intact Urine Creatinine Urine Total Protein 06/28/22 06/28/22 06/28/22 12:40 13:38 14:13 WBC RBC Hgb Hct Plt Count Lymph % (Auto) [place] % (Auto) Lymph # (Auto) [place] # (Auto) Seg Neutrophils % Seg Neuts % (Manual) Lymphocytes % (Manual) Seg Neutrophils # Seg Neutrophils # Man Lymphocytes # (Manual) PT INR APTT Heparin Anti-Xa Level ABG pH ABG pO2 ABG HCO3 ABG O2 Saturation ABG Base Excess ABG Hemoglobin Oxyhemoglobin Sodium 125 L Potassium 5.4 H Chloride 87.6 L Carbon Dioxide 18 L BUN 58 H Creatinine 2.5 H Glucose 199 H POC Glucose 258 H 205 H Hemoglobin A1c Calcium Phosphorus 6.90 H D Magnesium AST Troponin T NT-Pro-B Natriuret Pep Total Protein Albumin Triglycerides LDL Cholesterol Direct HDL Cholesterol PTH Intact Urine Creatinine Urine Total Protein 06/28/22 06/28/22 06/28/22 14:13 14:56 15:07 WBC 19.7 H RBC 5.33 H Hgb 16.2 H Hct 49.4 H Plt Count Lymph % (Auto) [place] % (Auto) Lymph # (Auto) [place] # (Auto) Seg Neutrophils % Seg Neuts % (Manual) Lymphocytes % (Manual) Seg Neutrophils # Seg Neutrophils # Man Lymphocytes # (Manual) PT INR APTT Heparin Anti-Xa Level ABG pH ABG pO2 ABG HCO3 ABG O2 Saturation ABG Base Excess ABG Hemoglobin Oxyhemoglobin Sodium 128 L Potassium 5.3 H Chloride 94.0 L Carbon Dioxide 14 L BUN 59 H Creatinine 2.4 H Glucose 183 H POC Glucose 194 H Hemoglobin A1c Calcium 7.8 L Phosphorus Magnesium AST Troponin T NT-Pro-B Natriuret Pep Total Protein Albumin Triglycerides LDL Cholesterol Direct HDL Cholesterol PTH Intact Urine Creatinine Urine Total Protein 06/28/22 06/28/22 06/28/22 15:07 15:07 15:54 WBC RBC Hgb 15.5 H Hct 46.8 H Plt Count Lymph % (Auto) [place] % (Auto) Lymph # (Auto) [place] # (Auto) Seg Neutrophils % Seg Neuts % (Manual) Lymphocytes % (Manual) Seg Neutrophils # Seg Neutrophils # Man Lymphocytes # (Manual) PT 19.6 H INR 1.47 H APTT Heparin Anti-Xa Level ABG pH ABG pO2 ABG HCO3 ABG O2 Saturation ABG Base Excess ABG Hemoglobin Oxyhemoglobin Sodium Potassium Chloride Carbon Dioxide BUN Creatinine Glucose POC Glucose 189 H Hemoglobin A1c Calcium Phosphorus Magnesium AST Troponin T NT-Pro-B Natriuret Pep Total Protein Albumin Triglycerides LDL Cholesterol Direct HDL Cholesterol PTH Intact Urine Creatinine Urine Total Protein 06/28/22 06/28/22 06/28/22 17:10 17:59 18:54 WBC RBC Hgb Hct Plt Count Lymph % (Auto) [place] % (Auto) Lymph # (Auto) [place] # (Auto) Seg Neutrophils % Seg Neuts % (Manual) Lymphocytes % (Manual) Seg Neutrophils # Seg Neutrophils # Man Lymphocytes # (Manual) PT INR APTT Heparin Anti-Xa Level ABG pH ABG pO2 ABG HCO3 ABG O2 Saturation ABG Base Excess ABG Hemoglobin Oxyhemoglobin Sodium Potassium Chloride Carbon Dioxide BUN Creatinine Glucose POC Glucose 216 H 195 H 178 H Hemoglobin A1c Calcium Phosphorus Magnesium AST Troponin T NT-Pro-B Natriuret Pep Total Protein Albumin Triglycerides LDL Cholesterol Direct HDL Cholesterol PTH Intact Urine Creatinine Urine Total Protein 06/28/22 06/28/22 06/28/22 19:49 20:31 20:31 WBC RBC Hgb Hct Plt Count Lymph % (Auto) [place] % (Auto) Lymph # (Auto) [place] # (Auto) Seg Neutrophils % Seg Neuts % (Manual) Lymphocytes % (Manual) Seg Neutrophils # Seg Neutrophils # Man Lymphocytes # (Manual) PT INR APTT Heparin Anti-Xa Level 0.19 L ABG pH ABG pO2 ABG HCO3 ABG O2 Saturation ABG Base Excess ABG Hemoglobin Oxyhemoglobin Sodium 129 L Potassium 5.1 H Chloride 95.6 L Carbon Dioxide 15 L BUN 59 H Creatinine 2.4 H Glucose 145 H POC Glucose 166 H Hemoglobin A1c Calcium 8.0 L Phosphorus 6.40 H Magnesium AST Troponin T NT-Pro-B Natriuret Pep Total Protein Albumin Triglycerides LDL Cholesterol Direct HDL Cholesterol PTH Intact Urine Creatinine Urine Total Protein 06/28/22 06/28/22 06/28/22 20:31 21:27 22:22 WBC RBC Hgb Hct Plt Count Lymph % (Auto) [place] % (Auto) Lymph # (Auto) [place] # (Auto) Seg Neutrophils % Seg Neuts % (Manual) Lymphocytes % (Manual) Seg Neutrophils # Seg Neutrophils # Man Lymphocytes # (Manual) PT INR APTT Heparin Anti-Xa Level ABG pH ABG pO2 ABG HCO3 ABG O2 Saturation ABG Base Excess ABG Hemoglobin Oxyhemoglobin Sodium Potassium Chloride Carbon Dioxide BUN Creatinine Glucose POC Glucose 131 H 148 H Hemoglobin A1c 9.7 H Calcium Phosphorus Magnesium AST Troponin T NT-Pro-B Natriuret Pep Total Protein Albumin Triglycerides LDL Cholesterol Direct HDL Cholesterol PTH Intact Urine Creatinine Urine Total Protein 06/28/22 06/29/22 06/29/22 23:36 00:21 01:27 WBC RBC Hgb Hct Plt Count Lymph % (Auto) [place] % (Auto) Lymph # (Auto) [place] # (Auto) Seg Neutrophils % Seg Neuts % (Manual) Lymphocytes % (Manual) Seg Neutrophils # Seg Neutrophils # Man Lymphocytes # (Manual) PT INR APTT Heparin Anti-Xa Level ABG pH ABG pO2 ABG HCO3 ABG O2 Saturation ABG Base Excess ABG Hemoglobin Oxyhemoglobin Sodium Potassium Chloride Carbon Dioxide BUN Creatinine Glucose POC Glucose 146 H 149 H 172 H Hemoglobin A1c Calcium Phosphorus Magnesium AST Troponin T NT-Pro-B Natriuret Pep Total Protein Albumin Triglycerides LDL Cholesterol Direct HDL Cholesterol PTH Intact Urine Creatinine Urine Total Protein 06/29/22 06/29/22 06/29/22 02:54 04:05 04:21 WBC 17.1 H RBC Hgb 14.6 H Hct 43.9 H Plt Count Lymph % (Auto) [place] % (Auto) Lymph # (Auto) [place] # (Auto) Seg Neutrophils % Seg Neuts % (Manual) Lymphocytes % (Manual) Seg Neutrophils # Seg Neutrophils # Man Lymphocytes # (Manual) PT INR APTT Heparin Anti-Xa Level ABG pH ABG pO2 ABG HCO3 ABG O2 Saturation ABG Base Excess ABG Hemoglobin Oxyhemoglobin Sodium Potassium Chloride Carbon Dioxide BUN Creatinine Glucose POC Glucose 172 H 167 H Hemoglobin A1c Calcium Phosphorus Magnesium AST Troponin T NT-Pro-B Natriuret Pep Total Protein Albumin Triglycerides LDL Cholesterol Direct HDL Cholesterol PTH Intact Urine Creatinine Urine Total Protein 06/29/22 06/29/22 06/29/22 04:21 04:21 06:27 WBC RBC Hgb Hct Plt Count Lymph % (Auto) [place] % (Auto) Lymph # (Auto) [place] # (Auto) Seg Neutrophils % Seg Neuts % (Manual) Lymphocytes % (Manual) Seg Neutrophils # Seg Neutrophils # Man Lymphocytes # (Manual) PT INR APTT Heparin Anti-Xa Level ABG pH ABG pO2 ABG HCO3 ABG O2 Saturation ABG Base Excess ABG Hemoglobin Oxyhemoglobin Sodium 129 L Potassium Chloride 97.6 L Carbon Dioxide 15 L BUN 59 H Creatinine 2.1 H Glucose 140 H POC Glucose 138 H Hemoglobin A1c Calcium 8.0 L Phosphorus Magnesium AST Troponin T NT-Pro-B Natriuret Pep Total Protein Albumin Triglycerides LDL Cholesterol Direct HDL Cholesterol PTH Intact 382.4 H Urine Creatinine Urine Total Protein 06/29/22 06/29/22 06/29/22 07:31 08:33 09:28 WBC RBC Hgb Hct Plt Count Lymph % (Auto) [place] % (Auto) Lymph # (Auto) [place] # (Auto) Seg Neutrophils % Seg Neuts % (Manual) Lymphocytes % (Manual) Seg Neutrophils # Seg Neutrophils # Man Lymphocytes # (Manual) PT INR APTT Heparin Anti-Xa Level ABG pH ABG pO2 ABG HCO3 ABG O2 Saturation ABG Base Excess ABG Hemoglobin Oxyhemoglobin Sodium Potassium Chloride Carbon Dioxide BUN Creatinine Glucose POC Glucose 142 H 141 H 167 H Hemoglobin A1c Calcium Phosphorus Magnesium AST Troponin T NT-Pro-B Natriuret Pep Total Protein Albumin Triglycerides LDL Cholesterol Direct HDL Cholesterol PTH Intact Urine Creatinine Urine Total Protein 06/29/22 06/29/22 06/29/22 10:35 10:47 11:30 WBC RBC Hgb Hct Plt Count Lymph % (Auto) [place] % (Auto) Lymph # (Auto) [place] # (Auto) Seg Neutrophils % Seg Neuts % (Manual) Lymphocytes % (Manual) Seg Neutrophils # Seg Neutrophils # Man Lymphocytes # (Manual) PT INR APTT Heparin Anti-Xa Level ABG pH ABG pO2 ABG HCO3 ABG O2 Saturation ABG Base Excess ABG Hemoglobin Oxyhemoglobin Sodium 131 L Potassium Chloride 94.4 L Carbon Dioxide 15 L BUN 59 H Creatinine 2.2 H Glucose 149 H POC Glucose 152 H 134 H Hemoglobin A1c Calcium Phosphorus 5.80 H Magnesium AST Troponin T NT-Pro-B Natriuret Pep Total Protein Albumin Triglycerides LDL Cholesterol Direct HDL Cholesterol PTH Intact Urine Creatinine Urine Total Protein 06/29/22 06/29/22 06/29/22 12:33 13:28 14:33 WBC RBC Hgb Hct Plt Count Lymph % (Auto) [place] % (Auto) Lymph # (Auto) [place] # (Auto) Seg Neutrophils % Seg Neuts % (Manual) Lymphocytes % (Manual) Seg Neutrophils # Seg Neutrophils # Man Lymphocytes # (Manual) PT INR APTT Heparin Anti-Xa Level ABG pH ABG pO2 ABG HCO3 ABG O2 Saturation ABG Base Excess ABG Hemoglobin Oxyhemoglobin Sodium Potassium Chloride Carbon Dioxide BUN Creatinine Glucose POC Glucose 146 H 170 H 188 H Hemoglobin A1c Calcium Phosphorus Magnesium AST Troponin T NT-Pro-B Natriuret Pep Total Protein Albumin Triglycerides LDL Cholesterol Direct HDL Cholesterol PTH Intact Urine Creatinine Urine Total Protein 06/29/22 06/29/22 06/29/22 15:49 16:14 16:14 WBC RBC Hgb Hct Plt Count Lymph % (Auto) [place] % (Auto) Lymph # (Auto) [place] # (Auto) Seg Neutrophils % Seg Neuts % (Manual) Lymphocytes % (Manual) Seg Neutrophils # Seg Neutrophils # Man Lymphocytes # (Manual) PT INR APTT Heparin Anti-Xa Level 0.19 L ABG pH ABG pO2 ABG HCO3 ABG O2 Saturation ABG Base Excess ABG Hemoglobin Oxyhemoglobin Sodium 128 L Potassium Chloride 95.8 L Carbon Dioxide 15 L BUN 52 H Creatinine 1.8 H Glucose 138 H POC Glucose 155 H Hemoglobin A1c Calcium 7.9 L Phosphorus Magnesium AST Troponin T NT-Pro-B Natriuret Pep Total Protein Albumin Triglycerides LDL Cholesterol Direct HDL Cholesterol PTH Intact Urine Creatinine Urine Total Protein 06/29/22 06/29/22 06/29/22 16:45 17:47 18:52 WBC RBC Hgb Hct Plt Count Lymph % (Auto) [place] % (Auto) Lymph # (Auto) [place] # (Auto) Seg Neutrophils % Seg Neuts % (Manual) Lymphocytes % (Manual) Seg Neutrophils # Seg Neutrophils # Man Lymphocytes # (Manual) PT INR APTT Heparin Anti-Xa Level ABG pH ABG pO2 ABG HCO3 ABG O2 Saturation ABG Base Excess ABG Hemoglobin Oxyhemoglobin Sodium Potassium Chloride Carbon Dioxide BUN Creatinine Glucose POC Glucose 135 H 150 H 123 H Hemoglobin A1c Calcium Phosphorus Magnesium AST Troponin T NT-Pro-B Natriuret Pep Total Protein Albumin Triglycerides LDL Cholesterol Direct HDL Cholesterol PTH Intact Urine Creatinine Urine Total Protein 06/29/22 06/29/22 06/29/22 20:14 20:17 21:11 WBC RBC Hgb Hct Plt Count Lymph % (Auto) [place] % (Auto) Lymph # (Auto) [place] # (Auto) Seg Neutrophils % Seg Neuts % (Manual) Lymphocytes % (Manual) Seg Neutrophils # Seg Neutrophils # Man Lymphocytes # (Manual) PT INR APTT Heparin Anti-Xa Level ABG pH ABG pO2 ABG HCO3 ABG O2 Saturation ABG Base Excess ABG Hemoglobin Oxyhemoglobin Sodium 131 L Potassium 5.5 H D Chloride Carbon Dioxide 15 L BUN 56 H Creatinine 2.0 H Glucose 146 H POC Glucose 155 H 152 H Hemoglobin A1c Calcium Phosphorus 5.20 H Magnesium AST Troponin T NT-Pro-B Natriuret Pep Total Protein Albumin Triglycerides LDL Cholesterol Direct HDL Cholesterol PTH Intact Urine Creatinine Urine Total Protein 06/29/22 06/29/22 06/30/22 21:53 23:07 00:18 WBC RBC Hgb Hct Plt Count Lymph % (Auto) [place] % (Auto) Lymph # (Auto) [place] # (Auto) Seg Neutrophils % Seg Neuts % (Manual) Lymphocytes % (Manual) Seg Neutrophils # Seg Neutrophils # Man Lymphocytes # (Manual) PT INR APTT Heparin Anti-Xa Level ABG pH ABG pO2 ABG HCO3 ABG O2 Saturation ABG Base Excess ABG Hemoglobin Oxyhemoglobin Sodium Potassium Chloride Carbon Dioxide BUN Creatinine Glucose POC Glucose 165 H 163 H 178 H Hemoglobin A1c Calcium Phosphorus Magnesium AST Troponin T NT-Pro-B Natriuret Pep Total Protein Albumin Triglycerides LDL Cholesterol Direct HDL Cholesterol PTH Intact Urine Creatinine Urine Total Protein 06/30/22 06/30/22 06/30/22 00:58 01:57 02:59 WBC RBC Hgb Hct Plt Count Lymph % (Auto) [place] % (Auto) Lymph # (Auto) [place] # (Auto) Seg Neutrophils % Seg Neuts % (Manual) Lymphocytes % (Manual) Seg Neutrophils # Seg Neutrophils # Man Lymphocytes # (Manual) PT INR APTT Heparin Anti-Xa Level ABG pH ABG pO2 ABG HCO3 ABG O2 Saturation ABG Base Excess ABG Hemoglobin Oxyhemoglobin Sodium Potassium Chloride Carbon Dioxide BUN Creatinine Glucose POC Glucose 189 H 150 H 147 H Hemoglobin A1c Calcium Phosphorus Magnesium AST Troponin T NT-Pro-B Natriuret Pep Total Protein Albumin Triglycerides LDL Cholesterol Direct HDL Cholesterol PTH Intact Urine Creatinine Urine Total Protein 06/30/22 06/30/22 06/30/22 03:53 04:56 05:25 WBC RBC Hgb Hct Plt Count Lymph % (Auto) [place] % (Auto) Lymph # (Auto) [place] # (Auto) Seg Neutrophils % Seg Neuts % (Manual) Lymphocytes % (Manual) Seg Neutrophils # Seg Neutrophils # Man Lymphocytes # (Manual) PT INR APTT Heparin Anti-Xa Level ABG pH ABG pO2 ABG HCO3 ABG O2 Saturation ABG Base Excess ABG Hemoglobin Oxyhemoglobin Sodium 132 L Potassium Chloride Carbon Dioxide 15 L BUN 53 H Creatinine 1.7 H Glucose 137 H POC Glucose 122 H 110 H Hemoglobin A1c Calcium Phosphorus Magnesium AST Troponin T NT-Pro-B Natriuret Pep Total Protein Albumin Triglycerides LDL Cholesterol Direct HDL Cholesterol PTH Intact Urine Creatinine Urine Total Protein 06/30/22 06/30/22 06/30/22 05:52 07:25 08:20 WBC RBC Hgb Hct Plt Count Lymph % (Auto) [place] % (Auto) Lymph # (Auto) [place] # (Auto) Seg Neutrophils % Seg Neuts % (Manual) Lymphocytes % (Manual) Seg Neutrophils # Seg Neutrophils # Man Lymphocytes # (Manual) PT INR APTT Heparin Anti-Xa Level ABG pH ABG pO2 ABG HCO3 ABG O2 Saturation ABG Base Excess ABG Hemoglobin Oxyhemoglobin Sodium Potassium Chloride Carbon Dioxide BUN Creatinine Glucose POC Glucose 150 H 133 H 119 H Hemoglobin A1c Calcium Phosphorus Magnesium AST Troponin T NT-Pro-B Natriuret Pep Total Protein Albumin Triglycerides LDL Cholesterol Direct HDL Cholesterol PTH Intact Urine Creatinine Urine Total Protein 06/30/22 06/30/22 06/30/22 09:20 10:21 10:59 WBC RBC Hgb Hct Plt Count Lymph % (Auto) [place] % (Auto) Lymph # (Auto) [place] # (Auto) Seg Neutrophils % Seg Neuts % (Manual) Lymphocytes % (Manual) Seg Neutrophils # Seg Neutrophils # Man Lymphocytes # (Manual) PT INR APTT Heparin Anti-Xa Level ABG pH ABG pO2 ABG HCO3 ABG O2 Saturation ABG Base Excess ABG Hemoglobin Oxyhemoglobin Sodium 132 L Potassium Chloride Carbon Dioxide 16 L BUN 49 H Creatinine 1.7 H Glucose 168 H POC Glucose 128 H 133 H Hemoglobin A1c Calcium 8.1 L Phosphorus Magnesium AST Troponin T NT-Pro-B Natriuret Pep Total Protein Albumin Triglycerides LDL Cholesterol Direct HDL Cholesterol PTH Intact Urine Creatinine Urine Total Protein 06/30/22 06/30/22 06/30/22 11:25 16:15 21:30 WBC RBC Hgb Hct Plt Count Lymph % (Auto) [place] % (Auto) Lymph # (Auto) [place] # (Auto) Seg Neutrophils % Seg Neuts % (Manual) Lymphocytes % (Manual) Seg Neutrophils # Seg Neutrophils # Man Lymphocytes # (Manual) PT INR APTT Heparin Anti-Xa Level ABG pH ABG pO2 ABG HCO3 ABG O2 Saturation ABG Base Excess ABG Hemoglobin Oxyhemoglobin Sodium Potassium Chloride Carbon Dioxide BUN Creatinine Glucose POC Glucose 232 H 325 H 279 H Hemoglobin A1c Calcium Phosphorus Magnesium AST Troponin T NT-Pro-B Natriuret Pep Total Protein Albumin Triglycerides LDL Cholesterol Direct HDL Cholesterol PTH Intact Urine Creatinine Urine Total Protein 07/01/22 07/01/22 07/01/22 05:10 05:10 07:38 WBC RBC Hgb Hct Plt Count Lymph % (Auto) [place] % (Auto) Lymph # (Auto) [place] # (Auto) Seg Neutrophils % Seg Neuts % (Manual) Lymphocytes % (Manual) Seg Neutrophils # Seg Neutrophils # Man Lymphocytes # (Manual) PT INR APTT Heparin Anti-Xa Level 0.24 L ABG pH ABG pO2 ABG HCO3 ABG O2 Saturation ABG Base Excess ABG Hemoglobin Oxyhemoglobin Sodium 132 L Potassium Chloride 97.8 L Carbon Dioxide 19 L BUN 34 H Creatinine 1.3 H Glucose 250 H POC Glucose 235 H Hemoglobin A1c Calcium Phosphorus Magnesium AST Troponin T NT-Pro-B Natriuret Pep Total Protein Albumin Triglycerides LDL Cholesterol Direct HDL Cholesterol PTH Intact Urine Creatinine Urine Total Protein 07/01/22 07/01/22 07/01/22 09:13 12:03 13:42 WBC RBC Hgb Hct Plt Count Lymph % (Auto) [place] % (Auto) Lymph # (Auto) [place] # (Auto) Seg Neutrophils % Seg Neuts % (Manual) Lymphocytes % (Manual) Seg Neutrophils # Seg Neutrophils # Man Lymphocytes # (Manual) PT 15.9 H INR 1.14 H APTT Heparin Anti-Xa Level 0.25 L ABG pH ABG pO2 ABG HCO3 ABG O2 Saturation ABG Base Excess ABG Hemoglobin Oxyhemoglobin Sodium Potassium Chloride Carbon Dioxide BUN Creatinine Glucose POC Glucose 272 H Hemoglobin A1c Calcium Phosphorus Magnesium AST Troponin T NT-Pro-B Natriuret Pep Total Protein Albumin Triglycerides LDL Cholesterol Direct HDL Cholesterol PTH Intact Urine Creatinine Urine Total Protein 07/01/22 07/01/22 07/01/22 16:32 21:21 23:14 WBC RBC Hgb Hct Plt Count Lymph % (Auto) [place] % (Auto) Lymph # (Auto) [place] # (Auto) Seg Neutrophils % Seg Neuts % (Manual) Lymphocytes % (Manual) Seg Neutrophils # Seg Neutrophils # Man Lymphocytes # (Manual) PT INR APTT Heparin Anti-Xa Level 0.27 L ABG pH ABG pO2 ABG HCO3 ABG O2 Saturation ABG Base Excess ABG Hemoglobin Oxyhemoglobin Sodium Potassium Chloride Carbon Dioxide BUN Creatinine Glucose POC Glucose 316 H 262 H Hemoglobin A1c Calcium Phosphorus Magnesium AST Troponin T NT-Pro-B Natriuret Pep Total Protein Albumin Triglycerides LDL Cholesterol Direct HDL Cholesterol PTH Intact Urine Creatinine Urine Total Protein 07/02/22 07/02/22 07/02/22 07:41 08:12 08:12 WBC RBC Hgb Hct Plt Count Lymph % (Auto) [place] % (Auto) Lymph # (Auto) [place] # (Auto) Seg Neutrophils % Seg Neuts % (Manual) Lymphocytes % (Manual) Seg Neutrophils # Seg Neutrophils # Man Lymphocytes # (Manual) PT INR APTT Heparin Anti-Xa Level 0.21 L ABG pH ABG pO2 ABG HCO3 ABG O2 Saturation ABG Base Excess ABG Hemoglobin Oxyhemoglobin Sodium 129 L Potassium Chloride 95.7 L Carbon Dioxide 17 L BUN 24 H Creatinine Glucose 275 H POC Glucose 287 H Hemoglobin A1c Calcium Phosphorus 2.10 L D Magnesium AST Troponin T NT-Pro-B Natriuret Pep Total Protein Albumin Triglycerides LDL Cholesterol Direct HDL Cholesterol PTH Intact Urine Creatinine Urine Total Protein 07/02/22 07/02/22 07/02/22 20:28 20:28 23:01 WBC RBC Hgb 14.7 H Hct 46.3 H Plt Count 138 L Lymph % (Auto) [place] % (Auto) Lymph # (Auto) [place] # (Auto) Seg Neutrophils % Seg Neuts % (Manual) Lymphocytes % (Manual) Seg Neutrophils # Seg Neutrophils # Man Lymphocytes # (Manual) PT 17.3 H INR 1.26 H APTT 24.1 L Heparin Anti-Xa Level ABG pH ABG pO2 ABG HCO3 ABG O2 Saturation ABG Base Excess ABG Hemoglobin Oxyhemoglobin Sodium Potassium Chloride Carbon Dioxide BUN Creatinine Glucose POC Glucose 340 H Hemoglobin A1c Calcium Phosphorus Magnesium AST Troponin T NT-Pro-B Natriuret Pep Total Protein Albumin Triglycerides LDL Cholesterol Direct HDL Cholesterol PTH Intact Urine Creatinine Urine Total Protein 07/03/22 07/03/22 07/03/22 07:28 11:30 12:20 WBC RBC Hgb Hct Plt Count Lymph % (Auto) [place] % (Auto) Lymph # (Auto) [place] # (Auto) Seg Neutrophils % Seg Neuts % (Manual) Lymphocytes % (Manual) Seg Neutrophils # Seg Neutrophils # Man Lymphocytes # (Manual) PT INR APTT Heparin Anti-Xa Level ABG pH ABG pO2 ABG HCO3 ABG O2 Saturation ABG Base Excess ABG Hemoglobin Oxyhemoglobin Sodium 134 L Potassium Chloride Carbon Dioxide BUN 18 H Creatinine Glucose 271 H POC Glucose 261 H 292 H Hemoglobin A1c Calcium Phosphorus Magnesium AST Troponin T NT-Pro-B Natriuret Pep Total Protein Albumin Triglycerides LDL Cholesterol Direct HDL Cholesterol PTH Intact Urine Creatinine Urine Total Protein 07/03/22 07/03/22 07/04/22 16:23 22:01 05:37 WBC RBC Hgb Hct Plt Count Lymph % (Auto) 8.4 L [place] % (Auto) 10.1 H Lymph # (Auto) 0.8 L [place] # (Auto) 1.0 H Seg Neutrophils % 80.6 H Seg Neuts % (Manual) Lymphocytes % (Manual) Seg Neutrophils # 8.0 H Seg Neutrophils # Man Lymphocytes # (Manual) PT INR APTT Heparin Anti-Xa Level ABG pH ABG pO2 ABG HCO3 ABG O2 Saturation ABG Base Excess ABG Hemoglobin Oxyhemoglobin Sodium Potassium Chloride Carbon Dioxide BUN Creatinine Glucose POC Glucose 255 H 281 H Hemoglobin A1c Calcium Phosphorus Magnesium AST Troponin T NT-Pro-B Natriuret Pep Total Protein Albumin Triglycerides LDL Cholesterol Direct HDL Cholesterol PTH Intact Urine Creatinine Urine Total Protein 07/04/22 07/04/22 07/04/22 05:37 07:40 11:15 WBC RBC Hgb Hct Plt Count Lymph % (Auto) [place] % (Auto) Lymph # (Auto) [place] # (Auto) Seg Neutrophils % Seg Neuts % (Manual) Lymphocytes % (Manual) Seg Neutrophils # Seg Neutrophils # Man Lymphocytes # (Manual) PT INR APTT Heparin Anti-Xa Level ABG pH 7.303 L ABG pO2 64.6 L ABG HCO3 ABG O2 Saturation 92.9 L ABG Base Excess ABG Hemoglobin 11.9 L Oxyhemoglobin 90.6 L Sodium Potassium Chloride Carbon Dioxide BUN Creatinine Glucose 217 H POC Glucose 211 H Hemoglobin A1c Calcium Phosphorus Magnesium AST Troponin T NT-Pro-B Natriuret Pep Total Protein Albumin Triglycerides LDL Cholesterol Direct HDL Cholesterol PTH Intact Urine Creatinine Urine Total Protein 07/04/22 07/04/22 07/04/22 11:52 16:51 22:03 WBC RBC Hgb Hct Plt Count Lymph % (Auto) [place] % (Auto) Lymph # (Auto) [place] # (Auto) Seg Neutrophils % Seg Neuts % (Manual) Lymphocytes % (Manual) Seg Neutrophils # Seg Neutrophils # Man Lymphocytes # (Manual) PT INR APTT Heparin Anti-Xa Level ABG pH ABG pO2 ABG HCO3 ABG O2 Saturation ABG Base Excess ABG Hemoglobin Oxyhemoglobin Sodium Potassium Chloride Carbon Dioxide BUN Creatinine Glucose POC Glucose 267 H 273 H 202 H Hemoglobin A1c Calcium Phosphorus Magnesium AST Troponin T NT-Pro-B Natriuret Pep Total Protein Albumin Triglycerides LDL Cholesterol Direct HDL Cholesterol PTH Intact Urine Creatinine Urine Total Protein 07/05/22 07/05/22 07/05/22 07:48 11:06 18:03 WBC RBC Hgb Hct Plt Count Lymph % (Auto) [place] % (Auto) Lymph # (Auto) [place] # (Auto) Seg Neutrophils % Seg Neuts % (Manual) Lymphocytes % (Manual) Seg Neutrophils # Seg Neutrophils # Man Lymphocytes # (Manual) PT INR APTT Heparin Anti-Xa Level ABG pH 7.313 L ABG pO2 102.1 H ABG HCO3 27.2 H ABG O2 Saturation ABG Base Excess ABG Hemoglobin 10.6 L Oxyhemoglobin Sodium Potassium Chloride Carbon Dioxide BUN Creatinine Glucose POC Glucose 223 H 219 H Hemoglobin A1c Calcium Phosphorus Magnesium AST Troponin T NT-Pro-B Natriuret Pep Total Protein Albumin Triglycerides LDL Cholesterol Direct HDL Cholesterol PTH Intact Urine Creatinine Urine Total Protein 07/05/22 07/05/22 07/06/22 Unknown Unknown 00:30 WBC 16.5 H RBC Hgb Hct Plt Count Lymph % (Auto) [place] % (Auto) Lymph # (Auto) [place] # (Auto) Seg Neutrophils % Seg Neuts % (Manual) 91.0 H Lymphocytes % (Manual) 1.0 L Seg Neutrophils # Seg Neutrophils # Man 15.0 H Lymphocytes # (Manual) 0.2 L PT INR APTT Heparin Anti-Xa Level ABG pH ABG pO2 ABG HCO3 ABG O2 Saturation ABG Base Excess ABG Hemoglobin Oxyhemoglobin Sodium Potassium Chloride Carbon Dioxide BUN Creatinine Glucose 290 H POC Glucose 199 H Hemoglobin A1c Calcium Phosphorus Magnesium AST Troponin T NT-Pro-B Natriuret Pep Total Protein Albumin Triglycerides LDL Cholesterol Direct HDL Cholesterol PTH Intact Urine Creatinine Urine Total Protein 07/06/22 07/06/22 07/06/22 03:33 04:00 04:00 WBC 11.4 H RBC 3.55 L Hgb Hct Plt Count Lymph % (Auto) [place] % (Auto) Lymph # (Auto) [place] # (Auto) Seg Neutrophils % Seg Neuts % (Manual) Lymphocytes % (Manual) Seg Neutrophils # Seg Neutrophils # Man Lymphocytes # (Manual) PT INR APTT Heparin Anti-Xa Level ABG pH ABG pO2 142.7 H ABG HCO3 28.9 H ABG O2 Saturation ABG Base Excess 3.6 H ABG Hemoglobin 10.5 L Oxyhemoglobin Sodium Potassium Chloride Carbon Dioxide BUN 22 H Creatinine 1.3 H Glucose 173 H POC Glucose Hemoglobin A1c Calcium Phosphorus Magnesium AST Troponin T NT-Pro-B Natriuret Pep Total Protein Albumin Triglycerides LDL Cholesterol Direct HDL Cholesterol PTH Intact Urine Creatinine Urine Total Protein 07/06/22 07/06/22 07/06/22 06:00 09:19 12:39 WBC RBC Hgb Hct Plt Count Lymph % (Auto) [place] % (Auto) Lymph # (Auto) [place] # (Auto) Seg Neutrophils % Seg Neuts % (Manual) Lymphocytes % (Manual) Seg Neutrophils # Seg Neutrophils # Man Lymphocytes # (Manual) PT INR APTT Heparin Anti-Xa Level ABG pH ABG pO2 ABG HCO3 ABG O2 Saturation ABG Base Excess ABG Hemoglobin Oxyhemoglobin Sodium Potassium Chloride Carbon Dioxide BUN Creatinine Glucose POC Glucose 180 H 198 H 179 H Hemoglobin A1c Calcium Phosphorus Magnesium AST Troponin T NT-Pro-B Natriuret Pep Total Protein Albumin Triglycerides LDL Cholesterol Direct HDL Cholesterol PTH Intact Urine Creatinine Urine Total Protein 07/06/22 07/06/22 07/06/22 17:30 20:59 23:30 WBC RBC Hgb Hct Plt Count Lymph % (Auto) [place] % (Auto) Lymph # (Auto) [place] # (Auto) Seg Neutrophils % Seg Neuts % (Manual) Lymphocytes % (Manual) Seg Neutrophils # Seg Neutrophils # Man Lymphocytes # (Manual) PT INR APTT Heparin Anti-Xa Level ABG pH ABG pO2 ABG HCO3 ABG O2 Saturation ABG Base Excess ABG Hemoglobin Oxyhemoglobin Sodium Potassium Chloride Carbon Dioxide BUN Creatinine Glucose POC Glucose 106 H 152 H 126 H Hemoglobin A1c Calcium Phosphorus Magnesium AST Troponin T NT-Pro-B Natriuret Pep Total Protein Albumin Triglycerides LDL Cholesterol Direct HDL Cholesterol PTH Intact Urine Creatinine Urine Total Protein 07/07/22 07/07/22 07/07/22 03:02 04:13 05:35 WBC RBC 3.13 L Hgb 9.7 L Hct 28.7 L Plt Count Lymph % (Auto) [place] % (Auto) Lymph # (Auto) [place] # (Auto) Seg Neutrophils % Seg Neuts % (Manual) Lymphocytes % (Manual) Seg Neutrophils # Seg Neutrophils # Man Lymphocytes # (Manual) PT INR APTT Heparin Anti-Xa Level ABG pH 7.473 H ABG pO2 93.4 H ABG HCO3 29.9 H ABG O2 Saturation ABG Base Excess 5.8 H ABG Hemoglobin 10.0 L Oxyhemoglobin Sodium Potassium Chloride Carbon Dioxide BUN Creatinine Glucose POC Glucose 135 H Hemoglobin A1c Calcium Phosphorus Magnesium AST Troponin T NT-Pro-B Natriuret Pep Total Protein Albumin Triglycerides LDL Cholesterol Direct HDL Cholesterol PTH Intact Urine Creatinine Urine Total Protein 07/07/22 07/07/22 07/07/22 05:35 06:15 12:25 WBC RBC Hgb Hct Plt Count Lymph % (Auto) [place] % (Auto) Lymph # (Auto) [place] # (Auto) Seg Neutrophils % Seg Neuts % (Manual) Lymphocytes % (Manual) Seg Neutrophils # Seg Neutrophils # Man Lymphocytes # (Manual) PT INR APTT Heparin Anti-Xa Level ABG pH ABG pO2 ABG HCO3 ABG O2 Saturation ABG Base Excess ABG Hemoglobin Oxyhemoglobin Sodium Potassium Chloride Carbon Dioxide 31 H BUN 21 H Creatinine Glucose POC Glucose 67 L 111 H Hemoglobin A1c Calcium Phosphorus Magnesium AST Troponin T NT-Pro-B Natriuret Pep Total Protein Albumin Triglycerides LDL Cholesterol Direct HDL Cholesterol PTH Intact Urine Creatinine Urine Total Protein 07/07/22 07/07/22 07/08/22 18:36 23:38 04:00 WBC RBC Hgb Hct Plt Count Lymph % (Auto) [place] % (Auto) Lymph # (Auto) [place] # (Auto) Seg Neutrophils % Seg Neuts % (Manual) Lymphocytes % (Manual) Seg Neutrophils # Seg Neutrophils # Man Lymphocytes # (Manual) PT INR APTT Heparin Anti-Xa Level ABG pH ABG pO2 ABG HCO3 ABG O2 Saturation ABG Base Excess ABG Hemoglobin Oxyhemoglobin Sodium Potassium Chloride Carbon Dioxide BUN 26 H Creatinine Glucose 276 H POC Glucose 167 H 243 H Hemoglobin A1c Calcium Phosphorus Magnesium AST Troponin T NT-Pro-B Natriuret Pep Total Protein Albumin Triglycerides LDL Cholesterol Direct HDL Cholesterol PTH Intact Urine Creatinine Urine Total Protein 07/08/22 07/08/22 07/08/22 04:15 05:00 05:07 WBC RBC 3.30 L Hgb 9.9 L Hct Plt Count Lymph % (Auto) [place] % (Auto) Lymph # (Auto) [place] # (Auto) Seg Neutrophils % Seg Neuts % (Manual) Lymphocytes % (Manual) Seg Neutrophils # Seg Neutrophils # Man Lymphocytes # (Manual) PT INR APTT Heparin Anti-Xa Level ABG pH ABG pO2 63.4 L ABG HCO3 29.2 H ABG O2 Saturation 94.0 L ABG Base Excess 4.2 H ABG Hemoglobin 10.0 L Oxyhemoglobin 91.8 L Sodium Potassium Chloride Carbon Dioxide BUN Creatinine Glucose POC Glucose 282 H Hemoglobin A1c Calcium Phosphorus Magnesium AST Troponin T NT-Pro-B Natriuret Pep Total Protein Albumin Triglycerides LDL Cholesterol Direct HDL Cholesterol PTH Intact Urine Creatinine Urine Total Protein 07/08/22 07/08/22 07/08/22 11:33 15:56 22:12 WBC RBC Hgb Hct Plt Count Lymph % (Auto) [place] % (Auto) Lymph # (Auto) [place] # (Auto) Seg Neutrophils % Seg Neuts % (Manual) Lymphocytes % (Manual) Seg Neutrophils # Seg Neutrophils # Man Lymphocytes # (Manual) PT INR APTT Heparin Anti-Xa Level ABG pH ABG pO2 ABG HCO3 ABG O2 Saturation ABG Base Excess ABG Hemoglobin Oxyhemoglobin Sodium Potassium Chloride Carbon Dioxide BUN Creatinine Glucose POC Glucose 315 H 378 H 389 H Hemoglobin A1c Calcium Phosphorus Magnesium AST Troponin T NT-Pro-B Natriuret Pep Total Protein Albumin Triglycerides LDL Cholesterol Direct HDL Cholesterol PTH Intact Urine Creatinine Urine Total Protein 07/08/22 07/09/22 07/09/22 23:33 04:00 04:00 WBC RBC 3.30 L Hgb 9.9 L Hct Plt Count Lymph % (Auto) [place] % (Auto) Lymph # (Auto) [place] # (Auto) Seg Neutrophils % Seg Neuts % (Manual) Lymphocytes % (Manual) Seg Neutrophils # Seg Neutrophils # Man Lymphocytes # (Manual) PT INR APTT Heparin Anti-Xa Level ABG pH ABG pO2 ABG HCO3 ABG O2 Saturation ABG Base Excess ABG Hemoglobin Oxyhemoglobin Sodium 146 H Potassium Chloride Carbon Dioxide BUN 36 H Creatinine Glucose 365 H POC Glucose 390 H Hemoglobin A1c Calcium Phosphorus Magnesium AST Troponin T NT-Pro-B Natriuret Pep Total Protein Albumin Triglycerides LDL Cholesterol Direct HDL Cholesterol PTH Intact Urine Creatinine Urine Total Protein 07/09/22 07/09/22 07/09/22 05:18 11:04 11:35 WBC RBC Hgb Hct Plt Count Lymph % (Auto) [place] % (Auto) Lymph # (Auto) [place] # (Auto) Seg Neutrophils % Seg Neuts % (Manual) Lymphocytes % (Manual) Seg Neutrophils # Seg Neutrophils # Man Lymphocytes # (Manual) PT INR APTT Heparin Anti-Xa Level ABG pH ABG pO2 74.0 L ABG HCO3 31.4 H ABG O2 Saturation ABG Base Excess 4.6 H ABG Hemoglobin 11.1 L Oxyhemoglobin 93.1 L Sodium Potassium Chloride Carbon Dioxide BUN Creatinine Glucose POC Glucose 389 H 328 H Hemoglobin A1c Calcium Phosphorus Magnesium AST Troponin T NT-Pro-B Natriuret Pep Total Protein Albumin Triglycerides LDL Cholesterol Direct HDL Cholesterol PTH Intact Urine Creatinine Urine Total Protein 07/09/22 07/09/22 07/10/22 16:14 21:54 02:02 WBC RBC Hgb Hct Plt Count Lymph % (Auto) [place] % (Auto) Lymph # (Auto) [place] # (Auto) Seg Neutrophils % Seg Neuts % (Manual) Lymphocytes % (Manual) Seg Neutrophils # Seg Neutrophils # Man Lymphocytes # (Manual) PT INR APTT Heparin Anti-Xa Level ABG pH ABG pO2 ABG HCO3 ABG O2 Saturation ABG Base Excess ABG Hemoglobin Oxyhemoglobin Sodium Potassium Chloride Carbon Dioxide BUN Creatinine Glucose POC Glucose 273 H 271 H 261 H Hemoglobin A1c Calcium Phosphorus Magnesium AST Troponin T NT-Pro-B Natriuret Pep Total Protein Albumin Triglycerides LDL Cholesterol Direct HDL Cholesterol PTH Intact Urine Creatinine Urine Total Protein 07/10/22 07/10/22 07/10/22 03:18 04:21 04:21 WBC RBC 3.55 L Hgb Hct Plt Count Lymph % (Auto) [place] % (Auto) Lymph # (Auto) [place] # (Auto) Seg Neutrophils % Seg Neuts % (Manual) Lymphocytes % (Manual) Seg Neutrophils # Seg Neutrophils # Man Lymphocytes # (Manual) PT INR APTT Heparin Anti-Xa Level ABG pH ABG pO2 ABG HCO3 ABG O2 Saturation ABG Base Excess ABG Hemoglobin Oxyhemoglobin Sodium 148 H Potassium Chloride Carbon Dioxide 32 H BUN 31 H Creatinine Glucose 253 H POC Glucose 268 H Hemoglobin A1c Calcium Phosphorus Magnesium AST Troponin T NT-Pro-B Natriuret Pep Total Protein 6.0 L Albumin 2.9 L Triglycerides LDL Cholesterol Direct HDL Cholesterol PTH Intact Urine Creatinine Urine Total Protein 07/10/22 07/10/22 07/10/22 05:46 09:55 13:55 WBC RBC Hgb Hct Plt Count Lymph % (Auto) [place] % (Auto) Lymph # (Auto) [place] # (Auto) Seg Neutrophils % Seg Neuts % (Manual) Lymphocytes % (Manual) Seg Neutrophils # Seg Neutrophils # Man Lymphocytes # (Manual) PT INR APTT Heparin Anti-Xa Level ABG pH ABG pO2 ABG HCO3 ABG O2 Saturation ABG Base Excess ABG Hemoglobin Oxyhemoglobin Sodium Potassium Chloride Carbon Dioxide BUN Creatinine Glucose POC Glucose 222 H 181 H 186 H Hemoglobin A1c Calcium Phosphorus Magnesium AST Troponin T NT-Pro-B Natriuret Pep Total Protein Albumin Triglycerides LDL Cholesterol Direct HDL Cholesterol PTH Intact Urine Creatinine Urine Total Protein 07/10/22 07/10/22 07/10/22 16:08 17:31 20:12 WBC RBC Hgb Hct Plt Count Lymph % (Auto) [place] % (Auto) Lymph # (Auto) [place] # (Auto) Seg Neutrophils % Seg Neuts % (Manual) Lymphocytes % (Manual) Seg Neutrophils # Seg Neutrophils # Man Lymphocytes # (Manual) PT INR APTT Heparin Anti-Xa Level ABG pH ABG pO2 ABG HCO3 ABG O2 Saturation ABG Base Excess ABG Hemoglobin Oxyhemoglobin Sodium Potassium Chloride Carbon Dioxide BUN Creatinine Glucose POC Glucose 185 H 190 H 211 H Hemoglobin A1c Calcium Phosphorus Magnesium AST Troponin T NT-Pro-B Natriuret Pep Total Protein Albumin Triglycerides LDL Cholesterol Direct HDL Cholesterol PTH Intact Urine Creatinine Urine Total Protein 07/11/22 07/11/22 07/11/22 02:20 04:00 05:14 WBC RBC Hgb Hct Plt Count Lymph % (Auto) [place] % (Auto) Lymph # (Auto) [place] # (Auto) Seg Neutrophils % Seg Neuts % (Manual) Lymphocytes % (Manual) Seg Neutrophils # Seg Neutrophils # Man Lymphocytes # (Manual) PT INR APTT Heparin Anti-Xa Level ABG pH ABG pO2 ABG HCO3 ABG O2 Saturation ABG Base Excess ABG Hemoglobin Oxyhemoglobin Sodium 146 H Potassium Chloride Carbon Dioxide 34 H BUN 26 H Creatinine Glucose 222 H POC Glucose 238 H 234 H Hemoglobin A1c Calcium Phosphorus Magnesium AST Troponin T NT-Pro-B Natriuret Pep Total Protein Albumin Triglycerides LDL Cholesterol Direct HDL Cholesterol PTH Intact Urine Creatinine Urine Total Protein 07/11/22 07/11/22 07/11/22 09:34 13:41 17:34 WBC RBC Hgb Hct Plt Count Lymph % (Auto) [place] % (Auto) Lymph # (Auto) [place] # (Auto) Seg Neutrophils % Seg Neuts % (Manual) Lymphocytes % (Manual) Seg Neutrophils # Seg Neutrophils # Man Lymphocytes # (Manual) PT INR APTT Heparin Anti-Xa Level ABG pH ABG pO2 ABG HCO3 ABG O2 Saturation ABG Base Excess ABG Hemoglobin Oxyhemoglobin Sodium Potassium Chloride Carbon Dioxide BUN Creatinine Glucose POC Glucose 204 H 324 H 339 H Hemoglobin A1c Calcium Phosphorus Magnesium AST Troponin T NT-Pro-B Natriuret Pep Total Protein Albumin Triglycerides LDL Cholesterol Direct HDL Cholesterol PTH Intact Urine Creatinine Urine Total Protein 07/11/22 07/12/22 07/12/22 22:06 02:11 04:18 WBC RBC 3.44 L Hgb Hct Plt Count Lymph % (Auto) [place] % (Auto) 7.4 H Lymph # (Auto) [place] # (Auto) Seg Neutrophils % Seg Neuts % (Manual) Lymphocytes % (Manual) Seg Neutrophils # Seg Neutrophils # Man Lymphocytes # (Manual) PT INR APTT Heparin Anti-Xa Level ABG pH ABG pO2 ABG HCO3 ABG O2 Saturation ABG Base Excess ABG Hemoglobin Oxyhemoglobin Sodium Potassium Chloride Carbon Dioxide BUN Creatinine Glucose POC Glucose 333 H 258 H Hemoglobin A1c Calcium Phosphorus Magnesium AST Troponin T NT-Pro-B Natriuret Pep Total Protein Albumin Triglycerides LDL Cholesterol Direct HDL Cholesterol PTH Intact Urine Creatinine Urine Total Protein 07/12/22 07/12/22 07/12/22 04:18 06:09 09:38 WBC RBC Hgb Hct Plt Count Lymph % (Auto) [place] % (Auto) Lymph # (Auto) [place] # (Auto) Seg Neutrophils % Seg Neuts % (Manual) Lymphocytes % (Manual) Seg Neutrophils # Seg Neutrophils # Man Lymphocytes # (Manual) PT INR APTT Heparin Anti-Xa Level ABG pH ABG pO2 ABG HCO3 ABG O2 Saturation ABG Base Excess ABG Hemoglobin Oxyhemoglobin Sodium 149 H Potassium Chloride Carbon Dioxide 41 H* D BUN 19 H Creatinine Glucose 207 H POC Glucose 174 H 207 H Hemoglobin A1c Calcium Phosphorus 2.10 L Magnesium AST Troponin T NT-Pro-B Natriuret Pep Total Protein 5.5 L Albumin 2.6 L Triglycerides LDL Cholesterol Direct HDL Cholesterol PTH Intact Urine Creatinine Urine Total Protein 07/12/22 07/12/22 07/12/22 12:25 16:05 17:10 WBC RBC Hgb Hct Plt Count Lymph % (Auto) [place] % (Auto) Lymph # (Auto) [place] # (Auto) Seg Neutrophils % Seg Neuts % (Manual) Lymphocytes % (Manual) Seg Neutrophils # Seg Neutrophils # Man Lymphocytes # (Manual) PT INR APTT Heparin Anti-Xa Level ABG pH ABG pO2 ABG HCO3 ABG O2 Saturation ABG Base Excess ABG Hemoglobin Oxyhemoglobin Sodium Potassium Chloride Carbon Dioxide BUN Creatinine Glucose POC Glucose 256 H 249 H 268 H Hemoglobin A1c Calcium Phosphorus Magnesium AST Troponin T NT-Pro-B Natriuret Pep Total Protein Albumin Triglycerides LDL Cholesterol Direct HDL Cholesterol PTH Intact Urine Creatinine Urine Total Protein 07/12/22 07/13/22 07/13/22 20:58 04:03 05:19 WBC RBC Hgb Hct Plt Count Lymph % (Auto) [place] % (Auto) Lymph # (Auto) [place] # (Auto) Seg Neutrophils % Seg Neuts % (Manual) Lymphocytes % (Manual) Seg Neutrophils # Seg Neutrophils # Man Lymphocytes # (Manual) PT INR APTT Heparin Anti-Xa Level ABG pH ABG pO2 ABG HCO3 ABG O2 Saturation ABG Base Excess ABG Hemoglobin Oxyhemoglobin Sodium 148 H Potassium Chloride Carbon Dioxide 40 H BUN Creatinine Glucose 145 H POC Glucose 254 H 191 H Hemoglobin A1c Calcium Phosphorus Magnesium AST Troponin T NT-Pro-B Natriuret Pep Total Protein Albumin Triglycerides LDL Cholesterol Direct HDL Cholesterol PTH Intact Urine Creatinine Urine Total Protein Chest x-ray: report reviewed, image reviewed Additional Studies: CHEST 1 VIEW 07/11/2022 7:41 AM INDICATION / CLINICAL INFORMATION: Follow up respiratory failure. COMPARISON: Yesterday. FINDINGS: SUPPORT DEVICES: The positions of the right PICC and feeding tube have not changed. HEART / MEDIASTINUM: Unchanged. LUNGS / PLEURA: Pleuroparenchymal opacity in the left mid to lower hemithorax is again identified and has shown mild improvement. The right lung is clear. No pneumothorax. ADDITIONAL FINDINGS: No significant additional findings. IMPRESSION: Improving pleuroparenchymal disease in the left mid to lower hemithorax. Allied health notes reviewed: nursing
[2022-07-13 20:08] VITALS: BP 141/69
[2022-07-13] MEDS: MIRTAZAPINE 15 MG SOLUTAB PO SCH (21:22)
[2022-07-13] MEDS: INSULIN GLARGINE 100 UNITS/ML SUB-Q SCH (21:22)
== END 2022-07-13 23:19 | DRG 299 ==
LOC: ED 20:06 → CC1 06-28 03:09 → 3A 07-01 10:41 → CC1 07-05 10:03 → IMCU 07-13 08:07
PROVIDERS: ADMIT Internal Medicine Geriatric Medicine; ATTEND Internal Medicine
DX: I82.423 Acute embolism and thrombosis of iliac vein, bilateral (principal); E11.10 Type 2 diabetes mellitus with ketoacidosis without coma; G93.41 Metabolic encephalopathy; I26.99 Other pulmonary embolism without acute cor pulmonale; J96.21 Acute and chronic respiratory failure with hypoxia; N17.0 Acute kidney failure with tubular necrosis; I46.9 Cardiac arrest, cause unspecified; J96.22 Acute and chronic respiratory failure with hypercapnia; J96.01 Acute respiratory failure with hypoxia; Z68.43 Body mass index [BMI] 50.0-59.9, adult; E87.0 Hyperosmolality and hypernatremia; E44.0 Moderate protein-calorie malnutrition; J44.1 Chronic obstructive pulmonary disease with (acute) exacerbation; L03.90 Cellulitis, unspecified; D72.829 Elevated white blood cell count, unspecified; E11.65 Type 2 diabetes mellitus with hyperglycemia; L89.899 Pressure ulcer of other site, unspecified stage; I50.9 Heart failure, unspecified; E66.01 Morbid (severe) obesity due to excess calories; E78.5 Hyperlipidemia, unspecified; E03.9 Hypothyroidism, unspecified; Z86.718 Personal history of other venous thrombosis and embolism; Z79.01 Long term (current) use of anticoagulants
CPT/HCPCS: 36415; 36600; 37187; 37248; 37249; 71045; 71275; 74018; 75822; 75825; 76770; 76937; 80048; 80053; 80061; 80307; 82140; 82565; 82570; 82803; 82962; 83036; 83735; 83880; 83970; 84100; 84145; 84156; 84300; 84484; 85007; 85014; 85018; 85025; 85027; 85049; 85520; 85610; 85730; 87040; 87070; 87205; 93005; 93306; 93925; 93970; 94002; 94003; 94640; 94660; 94760; 96374; 96375; 99285; G0378; J3490; J7070; Q0177; Q9967; C1725; C1757; C1769; C1773; C1887; C1894; C8929; J0282; J0461; J0692; J1120; J1170; J1644; J1815; J1940; J2270; J2370; J2405; J2704; J2997; J3010; J3370; J7030; J7040; J7042; J7050; J7120